=== PATIENT | female | born 1940 | race Caucasian/White ===

== ENCOUNTER 2018-03-20 15:41 | Observation (INO) | payer MEDICARE, OTHER, SELFPAY ==
[2018-03-20] VITALS (51 sets, daily range): BP systolic 91–121; BP diastolic 34–65; PULSE 67–87; RESP 16–41; TEMP 37–38.9; O2SAT 93–99
--- NOTE | 2018-03-20 15:57 | DI.REPORT_ITS ---
SYMPTOM/DIAGNOSIS: FEVER FRONTAL AND LATERAL CHEST: Comparison is made with 08/30/17. Heart size and pulmonary vasculature are within normal limits. The lungs are free of infiltrates, effusions or pneumothoraces. Mild degenerative changes are seen in the spine. IMPRESSION: No acute pulmonary process.
[2018-03-20] MEDS: Acetaminophen 325 MG TAB PO ×2 (16:14→19:13)
--- NOTE | 2018-03-20 16:18 | ED.GENADUL ---
Disposition Clinical Impression: Urinary tract infection, Anemia Disposition: [facility] INPATIENT Condition: Stable Medical Decision Making - Lab Data Results reviewed for labs ordered during visit: Yes - Radiology Data Radiology results: report reviewed, image reviewed - Medical Decision Making Patient presenting to the emergency department for chief complaint of fever and frequency of urination that began last night. Patient does state that she is also experiencing 1 of her typical migraine headaches but there is no change in these from her normal headaches that she gets very frequently. Physical exam shows no neurological deficits, normal cardiac exam, some mild wheezing, no abdominal pain but right CVA tenderness. Concern for urinary tract infection/pyelonephritis is high. Plan to draw labs, blood cultures, chest x-ray, and give mild hydration. For headache and fever pending results patient also given acetaminophen. Review of labs shows a significant drop in hemoglobin to 7.1 from an earlier result in August that showed hemoglobin closer to 11. Spoke with patient who denies any hematuria, rectal bleeding beyond intermittent hemorrhoids, dark tarry or bloody bowel movements. She does state that she has a history of Crohn's and has had a profound iron deficiency anemia in the past needed transfusion but has not had any episodes or issues for the past 2 years. Patient does state that she has noticed worsening shortness of breath and weakness over the past month and states that this is felt similar to previous episodes where her blood counts have dropped. Rectal examination was done at this time and showed negative Hemoccult. Urinalysis was also reviewed and shows signs of urinary tract infection so patient was started on Rocephin. Review of chest x-ray shows no acute findings. Patient reassessed and stated that she was feeling better after the acetaminophen. Plan to admit patient to transfuse blood and to continue to monitor spit patient's situation for any significant change. Called and spoke with Dr. Hubbard whom accepted the patient for observation stay and bridge orders were placed for patient to start transfusion of 2 units along with transfer for inpatient bed. After discussion of diagnosis and plan of care with patient patient agreed and stated no further needs, questions, or concerns at this time. History of Present Illness - General Chief complaint: Fever Stated complaint: CHILLS,SICK Time Seen by Provider: 03/20/18 15:49 Source: patient, family, RN notes reviewed, old records reviewed Mode of arrival: wheelchair Limitations: no limitations - History of Present Illness Initial comments: Patient reports yesterday she began feeling ill. In the evening she noticed that she began having fever then persistent chills to the point that she could not get warmed up with multiple blankets. She also states that she noticed that she had been urinating more yesterday evening but denies any burning of urination. Today she has felt feverish all day and so [id number] is bringing her to the emergency department. Patient does state some generalized weakness that she has noticed over the past month but denies any vomiting, diarrhea, cough, chest pain. She does state chronic nasal congestion but no change in her symptoms. She also has recurrent migraine headaches which she is currently having a headache but denies any change of her normal headache pattern. Onset/Timin -: days(s) Location: head Severity scale (1-10): 6 Quality: aching Consistency: constant Improves with: none Worsens with: none Associated Symptoms: denies other symptoms Treatments Prior to Arrival: none - Related Data Hyoscyamine Sulfate 1 - 2 tab PO TID PRN 06/30/17 Albuterol/Ipratropium [Duoneb Updraft] 3 ml UPD Q6H PRN #50 vial 10/01/17 Budesonide/Formoterol Fumarate [Symbicort 80/4.5 Mcg Inhaler] 2 puff IH BID #1 inh 10/01/17 Cyanocobalamin (Vitamin B-12) [Cyanocobalamin Injection] 1,000 mcg IM monthly #3 vial 10/01/17 Escitalopram [Lexapro] 10 mg PO DAILY #90 tab 10/01/17 Levothyroxine [Levothroid] 50 mcg PO DAILY #90 tab 10/01/17 Pantoprazole Sodium 40 mg PO BID #180 tab 10/01/17 Propranolol HCl 20 mg PO BID #180 tab 10/01/17 Syringe W-Cannula,Disp, 3 ml [Syringe] 1 each MC monthly #3 syringe 10/01/17 Ventolin Hfa 2 puff IN PRN PRN 10/01/17 Acetaminophen [Tylenol Extra Strength] 500 mg PO PRN tab 12/12/17 Balsalazide Disodium 1,500 mg PO TID cap 12/12/17 Allergies Allergy/AdvReac Type Severity Reaction Status Date / Time acetaminophen AdvReac Intermediate Headache Verified 03/20/18 16:00 ibuprofen AdvReac Headache Verified 03/20/18 15:57 Review of Systems Constitutional: see HPI, chills, fever, malaise, weakness Eyes: denies: eye discharge, vision change ENT: congestion. denies: throat pain Respiratory: shortness of breath (Mild). denies: cough Cardiovascular: denies: chest pain, palpitations, syncope Gastrointestinal: denies: abdominal pain, nausea, vomiting, diarrhea, constipation Genitourinary: denies: dysuria Musculoskeletal: denies: back pain Skin: denies: rash Hematological/Lymphatic: denies: easy bleeding, easy bruising Past Medical History - Past Medical History Medical history: asthma (Adult onset), hyperlipidemia, hypertension Iron deficiency anemia, Crohn's Psychiatric history: depression - Social History Smoking status: never smoker Alcohol use: none Drug use: none Living Situation: lives with family General Exam - General Limitations: no limitations General appearance: alert, in no apparent distress - Head Head exam: Present: atraumatic, normocephalic - Eye Eye exam: Present: normal apperance - Respiratory Respiratory exam: Present: wheezes (Mild expiratory throughout). Absent: respiratory distress, rales, rhonchi, stridor, decreased breath sounds - Cardiovascular Cardiovascular Exam: Present: regular rate, normal rhythm, normal heart sounds. Absent: tachycardia, systolic murmur, diastolic murmur, rubs, gallop, clicks - GI/Abdominal GI/Abdominal exam: Present: soft, normal bowel sounds. Absent: tenderness, guarding, rebound, rigid, organomegaly, mass, bruit, pulsatile mass - Rectal Rectal exam: Present: normal rectal tone. Absent: decreased rectal tone, black stool, bloody stool, fecal impaction, hemorrhoids - Back Exam Back exam: Present: CVA tenderness (R). Absent: CVA tenderness (L), rash noted - Neurological Exam Neurological exam: Present: alert, oriented X3. Absent: altered - Skin Skin exam: Present: warm, dry, normal color Course Vital Signs - 24 hr 03/20/18 03/20/18 15:50 16:14 Temperature 38.9 C H 38.9 C H Pulse 87 Respiratory 18 Rate Blood Pressure 107/54 Pulse Oximetry 93 L
[2018-03-20] MEDS: Normal Saline 500 ML IV (16:30)
[2018-03-20] MEDS: Normal Saline Flush 10 ML SYR IVP (16:30)
[2018-03-20 16:38] LABS: Lactate-non-spesis 1.1 mmol/L (0.6-1.4)
[2018-03-20 16:39] LABS: Abs Immature Grans 0.01 k/cumm (0.0-0.09); Absolute Basophil Count 0.02 k/cumm (0.0-0.2); Absolute Eosinophil Count 0.01 k/cumm (0.0-0.7); Absolute Lymphocyte Count 0.23 k/cumm (1.2-3.4); Absolute Monocyte Count 0.36 k/cumm (0.11-0.7); Absolute Neutrophil Count 6.17 k/cumm (1.2-6.7); Basophils % 0.3; Eosinophils % 0.1; HCT 24.1 % (36.0-46.0); HGB 7.1 g/dL (12.0-15.5); Immature Grans % 0.1; Lymphocytes % 3.4; Mean Corp. HGB Concentration 29.5 g/dL (32.0-36.0); Mean Corpuscular Hemoglobin 21.2 pg (27.0-33.0); Mean Corpuscular Volume 71.9 fL (80-95); Mean Platelet Volume 9.7 fL (8.0-11.0); Monocytes % 5.3; Neutrophils % 90.8; Platelet Count 110 x1000/uL (130-400); RBC 3.35 m/cumm (4.00-5.20); RBC Distribution Width 18.5 % (11.7-14.6)
[2018-03-20 16:53] LABS: Anisocytosis 2+; Diff Comment RBC Morph Reviewed; Hypochromasia 2+
[2018-03-20 16:54] LABS: Microcytosis 2+
[2018-03-20 16:58] LABS: Bilirubin Negative (Negative); Blood Negative (Negative); Clarity Sl Cloudy; Glucose Negative (Negative); Ketones Trace mg/dL (Negative); Leukocyte Esterase Moderate (Negative); Nitrite Positive (Negative); Specific Gravity 1.015 (1.005-1.025); Urobilinogen 0.2 EU/dL (Up TO 0.2); pH 5.5 (5-8)
[2018-03-20 16:59] LABS: ALT 13 U/L (12-78); AST 27 U/L (15-37); Albumin 3.5 g/dL (3.4-5.0); Alkaline Phosphatase 146 U/L (46-116); Anion Gap 8.9 mmol/L (3-11); BUN 17 mg/dL (7-18); Bilirubin, Total 1.4 mg/dL (0.2-1.0); CO2 23.1 mmol/L (21.0-32.0); CREATININE 0.89 mg/dL (0.55-1.02); Calcium 8.5 mg/dL (8.5-10.1); Chloride 101 mmol/L (98-107); Glucose 99 mg/dL (70-100); Magnesium 1.6 mg/dL (1.8-2.4); Potassium 3.5 mmol/L (3.5-5.1); Sodium 133 mmol/L (136-145); Total Protein 7.3 g/dL (6.4-8.2)
[2018-03-20 17:03] LABS: Troponin I < 0.02 ng/mL (0.00-0.06)
[2018-03-20 17:14] LABS: Bacteria Many HPF (Negative); WBC >50 HPF (0-5)
[2018-03-20 17:15] LABS: C & S Indicated? Yes
--- NOTE | 2018-03-20 17:47 | DI.VRAD_ITS ---
EXAM: XR Chest, 2 Views EXAM DATE/TIME: 03/20/2018 3:59 PM CLINICAL HISTORY: 77 years old, female; Signs and symptoms; Cough and fever TECHNIQUE: XR of the chest, 2 views. COMPARISON: CR - CHEST 2 VIEWS PA,LAT 08/30/2017 4:01 PM FINDINGS: Lungs: Unremarkable. No consolidation. Pleural space: Unremarkable. No pleural effusion. No pneumothorax. Heart/Mediastinum: Cardiac size is normal. Bones/joints: There is diffuse osteoporosis. Minimal marginal anterior osteophytic spurring is present throughout the thoracic vertebrae. IMPRESSION: 1. No acute pulmonary disease or acute thoracic findings are detected. 2. No significant interval change. Dictated and Authenticated by: Dirk Perez MD. Ordering:EDGAR KOCH MD
[2018-03-20] MEDS: Albuterol 2.5 MG/3 ML INH SOLN VIAL UPD (18:11)
--- NOTE | 2018-03-20 21:15 | PDOC.HP_ITS ---
Date of Service: 03/20/18 Time of Service: 21:15 Assessment/Plan - Assessment/Plan (1) UTI (urinary tract infection) Plan: Patient was given an dose of Rocephin 1 g IV tonight. I will put her on Keflex 500 mg p.o. 4 times daily presuming that her blood cultures come back negative. If her blood cultures are positive she will need to remain on parenteral antibiotics. (2) Microcytic anemia Assessment: Patient's had a history of iron deficiency anemia in the past and is required parenteral iron infusions because of intolerance to oral iron. According to Dr. Santaigo's office note from 12/12/2017 her last iron studies showed she is not currently deficient. However given her worsening anemia and microcytic changes, she probably is now iron deficient. She regularly takes B12 injection monthly so I doubt there is a B 12 deficiency. Plan: patient will be transfused 2 units of PRBC tonight w/ recheck of her CBC in the a.m. She can then follow up w/ Dr. Rankin for repeat endoscopy (3) Exacerbation of Crohn's disease Assessment: She is not having overt GI bleeding tonight (rectal exam was negative for heme according to Francois Lara CNP; however, I suspect that she has had intermittent GI bleeding although she denies any overt melena or hematochezia. The fact that her dyspnea/fatigue have been going on for over one month suggests that this has been a gradual process. She needs to see Dr. Rankin for further evaluation and adjustment of her Crohn's medicines. Apparently her insurance would not cover her Lialda. Plan: begin Budesonide 9 mg daily and arrange follow up w/ Dr. Rankin upon discharge ( non-formulary here at [facility] so will have to be prescribed upon discharge) History of Present Illness - History of Present Illness Chief Complaint: fever and chills History of Present Illness: 77-year-old female with history of Crohn's disease presents emergency department with 1 month history of increasing fatigue and a 1 day history of fever chills associated with rigors. She has chronic urinary urgency and nocturia couple times per night along with urge incontinence. She denies any dysuria or hematuria. Upon evaluation in the emergency room she was found to have a urinalysis suspicious for UTI and as part of her workup her CBC discovered that her chronic anemia had worsened. Her CBC this evening showed a hemoglobin of 7.1 g hematocrit 24% with microcytic indices. She also has thrombocytopenia with a platelet count 110,000. Her total white cell count is normal at 1600. She was hospitalized here with influenza A in August of this year and after leaving the hospital her hemoglobin had dropped from 12.7 g to 10.3 g and then was rechecked a week later and found to be 11.7 g. She followed up with Dr. Santiago who consulted with the patient's coordinator of rehabilitation services Dr. Rankin who recommended following her blood count every 6 months. Patient denies any melena nor any hematochezia however ever since they switched her Crohn's medicine from Lialda to balsalazide she has had worsening symptoms of her Crohn's including abdominal bloating and intermittent constipation and diarrhea and crampy abdominal pain. She says she last saw Dr. Rankin probably in September of this year and she last saw Dr. Santiago in November of this year. She scheduled for follow-up with him in May. Patient is now admitted to the hospital on observation status for blood transfusions and treatment of her UTI. Workup in the emergency room included blood and urine cultures and treatment included 1 g of Rocephin intravenously and she has been ordered 2 units of packed red cells to be transfused tonight. - Past Medical History Cardiac: HTN, Hyperlipidemia Pulmonary: Asthma, Bronchitis (06/30/2017 treated w/ 7 d course of doxycycline and prednisone) INVESTIGATIVE ANALYST: Migraine Gastrointestinal: Inflam bowel disease (Crohns disease; seen by Dr. 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) Infectious Disease: Other (influenza A 09/12/2017) Endocrine: Hypothyroidism Grav: 4 Para: 3 (one miscarriage at 3 months) - Past Surgical History Past Surgical History: Hysterectomy (s/p NOLVIA/BSO), Hernia Repair, Other (back surgeries x 4), Other (Yaa's fundiplication) - Past Family History Family History: Cancer (brothers w/ glioblastoma and lymphoma), CAD (mother w/ [place] and CHF), Other (son w/ Crohn's disease; father w/ Hinojosa aneurysm) - Past Social History Smoke: No 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; formerly lived in [facility] [facility].[place] (worked for [employer]) Alcohol: None Drugs: None Lives: With Family (lives w/ one grown son; last year after 59 yrs of marriage) Domestic Violence: Negative Review of Systems - Review of Systems Constitutional: Fever, Chills (associated w/ rigors, began 1 or 2 am and continued this afternoon), Malaise (increased feeling of being tired over the past few weeks) Eyes: Vision Change (secondary to macular degeneration) ENT: denies: Ear Pain, Ear Discharge, Nose Pain, Nose Discharge, Nose Congestion , Mouth Pain, Mouth Swelling, Throat Pain, Throat Swelling Respiratory: Cough (daily dry cough for years), Dry. denies: Shortness of Breath, Hemoptysis, SOB with Excertion, Pleuritic Pain, Sputum, Wheezing Cardiovascular: denies: Chest Pain, Palpitations, Orthopnea, Paroxysmal Noc. Dyspnea, Edema, Light Headedness Gastrointestinal: Nausea, Abdominal Pain (abdominal cramping associated w/ her diarrhea), Diarrhea, Constipation (often will vary between diarrhea and constipation from her Crohn's disease). denies: Vomiting, Melena, Hematochezia Genitourinary: Frequency, Incontinence (urgency and leaking; nocturia twice per night). denies: Dysuria, Hematuria Musculoskeletal: Neck Pain, Back Pain (chronic neck and back pain from OA) Skin: denies: Rash, Lesions, Serge, Bruising Neurological: denies: Weakness, Numbness, Incoordination, Change in Speech, Confusion, Seizures - Medications/Allergies Allergies/Adverse Reactions: Allergies Allergy/AdvReac Type Severity Reaction Status Date / Time acetaminophen AdvReac Intermediate Headache Verified 03/20/18 16:00 ibuprofen AdvReac Headache Verified 03/20/18 15:57 Medications: Current Medications Acetaminophen (Tylenol) 325 - 650 mg PO Q4H PRN PRN Al Hydrox/Mg Hydrox/Simethicone (Mylanta Liquid) 30 ml PO Q2H PRN PRN Albuterol/Ipratropium (Duoneb Updraft) 3 ml UPD Q6H PRN Budesonide/Formoterol Fumarate (Symbicort 80/4.5 Mcg Inhaler) 0 puff IH BID [place] Cephalexin (Keflex) 500 mg PO QID [facility] Dimethicone/Zinc Oxide (Jacki Protect Cream) 0 gm TP PRN PRN Docusate Sodium (Colace) 100 mg PO TID PRN PRN Escitalopram Oxalate (Lexapro) 10 mg PO DAILY [facility] Sodium Chloride (Saline 1000ml Bag) 1,000 mls @ 30 mls/hr IV INFUSION [facility] IV Miscellaneous Supplies () 1 each IV DIRECTED [place] IV Miscellaneous Supplies () 1 each IV DIRECTED [place] Levothyroxine Sodium (Levothroid) 50 mcg PO DAILY AM [facility] Magnesium Gluconate () 500 mg PO BID [facility] Magnesium Hydroxide (Milk Of Magnesia) 30 ml PO DAILY PRN PRN Non-Formulary Medication (Balsalazide Disodium [Balsalazide Disodium]) 1,500 mg PO TID [facility] Pantoprazole Sodium (Protonix) 40 mg PO DAILY [facility] Polyethylene Glycol (Miralax) 17 gm PO DAILY PRN PRN PRN Reason: Constipation Propranolol HCl (Inderal) 20 mg PO BID [place] Sodium Chloride (Saline Flush 10 Ml Syringe) 0 ml IVP PRN PRN Last Admin: 03/20/18 16:30 Dose: 10 ml Sodium Chloride (Saline Flush 10 Ml Syringe) 0 ml IVP PRN PRN Active Medications Generic Name Dose Route Start Last Admin Trade Name Freq PRN Reason Stop Dose Admin Acetaminophen 325 - 650 mg 03/20/18 20:30 Tylenol PO Q4H PRN PRN Al Hydrox/Mg Hydrox/Simethicone 30 ml 03/20/18 19:32 Mylanta Liquid PO Q2H PRN PRN Albuterol/Ipratropium 3 ml 03/20/18 19:35 Duoneb Updraft UPD Q6H PRN Budesonide/Formoterol Fumarate 0 puff 03/21/18 08:30 Symbicort 80/4.5 Mcg Inhaler IH BID [facility] Cephalexin 500 mg 03/20/18 20:00 Keflex PO QID [facility] Dimethicone/Zinc Oxide 0 gm 03/20/18 19:32 Jacki Protect Cream TP PRN PRN Docusate Sodium 100 mg 03/20/18 19:32 Colace PO TID PRN PRN Escitalopram Oxalate 10 mg 03/21/18 08:30 Lexapro PO DAILY [facility] Sodium Chloride 1,000 mls @ 30 mls/hr 03/20/18 19:45 Saline 1000ml Bag IV INFUSION [facility] IV Miscellaneous Supplies 1 each 03/20/18 16:00 IV DIRECTED [facility] IV Miscellaneous Supplies 1 each 03/20/18 19:15 IV DIRECTED [facility] Levothyroxine Sodium 50 mcg 03/21/18 05:35 Levothroid PO DAILY AM [facility] Magnesium Gluconate 500 mg 03/20/18 20:00 PO BID [facility] Magnesium Hydroxide 30 ml 03/20/18 19:32 Milk Of Magnesia PO DAILY PRN PRN Non-Formulary Medication 1,500 mg 03/20/18 20:00 Balsalazide Disodium [Balsalazide Disodium] PO TID [facility] Pantoprazole Sodium 40 mg 03/21/18 08:30 Protonix PO DAILY [facility] Polyethylene Glycol 17 gm 03/20/18 19:32 Miralax PO DAILY PRN PRN Constipation Propranolol HCl 20 mg 03/20/18 20:00 Inderal PO BID [facility] Sodium Chloride 0 ml 03/20/18 15:57 03/20/18 16:30 Saline Flush 10 Ml Syringe IVP 10 ml PRN PRN Administration Sodium Chloride 0 ml 03/20/18 19:03 Saline Flush 10 Ml Syringe IVP PRN PRN Hyoscyamine Sulfate 1 - 2 tab PO TID PRN 06/30/17 Albuterol/Ipratropium [Duoneb Updraft] 3 ml UPD Q6H PRN #50 vial 10/01/17 Budesonide/Formoterol Fumarate [Symbicort 80/4.5 Mcg Inhaler] 2 puff IH BID #1 inh 10/01/17 Cyanocobalamin (Vitamin B-12) [Cyanocobalamin Injection] 1,000 mcg IM monthly # 3 vial 10/01/17 Escitalopram [Lexapro] 10 mg PO DAILY #90 tab 10/01/17 Levothyroxine [Levothroid] 50 mcg PO DAILY #90 tab 10/01/17 Pantoprazole Sodium 40 mg PO BID #180 tab 10/01/17 Propranolol HCl 20 mg PO BID #180 tab 10/01/17 Syringe W-Cannula,Disp, 3 ml [Syringe] 1 each monthly #3 syringe 10/01/17 Ventolin Hfa 2 puff IN PRN PRN 10/01/17 Acetaminophen [Tylenol Extra Strength] 500 mg PO PRN tab 12/12/17 Balsalazide Disodium 1,500 mg PO TID cap 12/12/17 Objective - Exam Vitals and I&O: Vital Signs Temp 38.6 C H 03/20/18 20:13 Pulse 74 03/20/18 20:05 Resp 16 03/20/18 20:05 BP 106/46 03/20/18 20:05 Pulse Ox 99 03/20/18 20:05 Intake & Output 03/19/18 03/20/18 03/20/18 23:59 11:59 23:59 Intake Total 500 Balance 500 Weight 68.039 kg Intake: IV 500 General: Alert, Oriented x3, Cooperative, No acute distress HEENT: Atraumatic, PERRLA, EOMI, Other (Pale conjunctiva and pale mucosal membranes) Neck: Supple, Other (2+ carotid pulses with a soft bruit over the right carotid base). denies: JVD, Thyromegaly, LAD Lungs: Normal air movement, Other (Find end expiratory wheezes without rhonchi or rales) Cardiovascular: Regular rate, Normal S1, Normal S2, Murmurs (Grade 3/6 systolic murmur along the left upper sternal border without thrill or heave). denies: Gallops, Rubs Abdomen: Normal bowel sounds, Soft. denies: Tenderness, Hepatospenomegaly, Masses Extremities: Normal pulses, Other (Left foot drop). denies: Cyanosis, Edema, Tenderness/swelling Skin: denies: Rashes Neurological: Normal speech, Strength at 5/5 X4 ext (Except she has no dorsiflexion of the left foot), Normal tone, Sensation intact Psych/Mental Status: Mental status NL, Mood NL Results - Laboratory Data Result Diagrams: 03/20/18 16:30 03/20/18 16:30 Laboratory Results: Laboratory Tests 03/20/18 03/20/18 03/20/18 16:30 16:30 16:30 WBC 6.80 RBC 3.35 L Hgb 7.1 L Hct 24.1 L MCV 71.9 L MCH 21.2 L MCHC 29.5 L RDW 18.5 H Plt Count 110 L MPV 9.7 Immature Gran % 0.1 Neutrophils % 90.8 Lymphocytes % 3.4 Monocytes % 5.3 Eosinophils % 0.1 Basophils % 0.3 Absolute Neutrophils 6.17 Absolute Lymphocytes 0.23 L Absolute Monocytes 0.36 Absolute Eosinophils 0.01 Absolute Basophils 0.02 Differential Comment Rbc morph reviewed RBC Morphology See below Hypochromasia 2+ Anisocytosis 2+ Microcytosis 2+ Sodium 133 L Potassium 3.5 Chloride 101 Carbon Dioxide 23.1 Anion Gap 8.9 BUN 17 Creatinine 0.89 Estimated GFR/1.73 m2 >= 60.00 Glucose 99 Lactate 1.1 Calcium 8.5 Magnesium 1.6 L Total Bilirubin 1.4 H AST 27 ALT 13 Alkaline Phosphatase 146 H Troponin I < 0.02 Total Protein 7.3 Albumin 3.5 Urine Color Urine Clarity Urine pH Ur Specific [place] Urine Protein Urine Ketones Urine Blood Urine Nitrite Urine Bilirubin Urine Urobilinogen Ur Leukocyte Esterase Urine RBC Urine WBC Ur Epithelial Cells Urine Crystals Urine Bacteria Urine Mucus Ur Culture Indicated? Urine Glucose Patient ABO/Rh Antibody Screen Crossmatch 03/20/18 03/20/18 16:50 17:12 WBC RBC Hgb Hct MCV MCH MCHC RDW Plt Count MPV Immature Gran % Neutrophils % Lymphocytes % Monocytes % Eosinophils % Basophils % Absolute Neutrophils Absolute Lymphocytes Absolute Monocytes Absolute Eosinophils Absolute Basophils Differential Comment RBC Morphology Hypochromasia Anisocytosis Microcytosis Sodium Potassium Chloride Carbon Dioxide Anion Gap BUN Creatinine Estimated GFR/1.73 m2 Glucose Lactate Calcium Magnesium Total Bilirubin AST ALT Alkaline Phosphatase Troponin I Total Protein Albumin Urine Color Yellow Urine Clarity Sl cloudy Urine pH 5.5 Ur Specific [place] 1.015 Urine Protein 100 H Urine Ketones Trace H Urine Blood Negative Urine Nitrite Positive H Urine Bilirubin Negative Urine Urobilinogen 0.2 Ur Leukocyte Esterase Moderate H Urine RBC Not Applicable Urine WBC >50 Ur Epithelial Cells Not Applicable Urine Crystals Not Applicable Urine Bacteria Many Urine Mucus Not Applicable Ur Culture Indicated? Yes Urine Glucose Negative Patient ABO/Rh A Positive Antibody Screen Negative Crossmatch See Detail
[2018-03-20] MEDS: Magnesium Gluconate 500 MG TAB PO (22:29)
[2018-03-20 22:37] LABS: C-Reactive Protein 6.72 mg/dL (0.0-0.3)
[2018-03-20] MEDS: Cephalexin 500 MG CAP PO (23:16)
[2018-03-20 23:44] LABS: Iron 22 ug/dL (50-175)
[2018-03-20 23:58] LABS: Ferritin 19 ng/mL (8-388)
[2018-03-21] VITALS (9 sets, daily range): BP systolic 102–150; BP diastolic 52–66; PULSE 53–71; RESP 18–20; TEMP 36.2–37.3; O2SAT 95–98
--- NOTE | 2018-03-21 06:26 | PDOC.CMIN ---
Date of Service: 03/21/18 Time of Service: 09:37 Care Management Initial Assess REASON FOR HOSPITALIZATION:: UTI, Anemia PAST MEDICAL HISTORY/PAST SURGICAL HISTORY:: HTN, Hyperlipidemia, Asthma, Miraine, Crohns disease, B12 deficiency, Iron deficiency anemia, Depression, Foot drop s/p prior back surgeries x4 for DJD LS spine, Hypothyroidism, Hysterectomy, Hernia repair, Yaa's fundiplication PREVIOUS FUNCTIONAL STATUS/SOCIAL/FAMILY SUPPORTS:: Cindy resides in [place], her son Gus resides with her. Cindy states that she has three sons all whom reside in [place] and are supportive. Cindy states that she is from [place] originally, moved to [place] with her and when he passed moved to [place] to be closer to her family. Cindy is independent at baseline and manages ADL's. She states that she does not drive and depends on her children for assistance with this. CURRENT FUNCTIONAL STATUS:: Currently Cindy is lying in bed watching TV when this inspector automatic typewriter visits. She is pleasant and open to conversation. ADVANCE DIRECTIVES:: None on file Has patient been provided with information about the portal?: Yes Did the patient sign up for the portal?: No CODE STATUS:: DNR/DNI INSURANCE COVERAGE / FINANCIAL ISSUES:: Medicare, CURRENT HOME/COMMUNITY SERVICES/EQUIPMENT:: Currently cindy has no services in the community. she does have a 4WW and a cane. She states that she uses the cane more frequently. PRIMARY CARE PHYSICIAN:: Dr. Santiago POTENTIAL DISCHARGE NEEDS:: F/U appointment with PCP and GI PATIENT/FAMILY EDUCATION NEEDS:: Review DC instructions, any limitations, and ongoing DC planning discussion. Review Ask Me Three ANTICIPATED BARRIERS TO DISCHARGE:: None identified at this time. TRANSPORTATION:: Via private vehicle with qing Weber PLAN:: Cindy will return home with no anticipated services once medically cleared. She will F/U with PCP, GI, and plan of care as prescribed. Twila Weber will transport when ready.
--- NOTE | 2018-03-21 06:29 | INITIAL_ITS ---
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 Cindy states that she has three sons all whom reside in [facility] and are supportive. Cindy states that she is from [facility] originally, moved to [place] with her and when he passed moved to [place] to be closer to her family. Cindy is independent at baseline and manages ADL's. She states that she does not drive and depends on her children for assistance with this. CURRENT FUNCTIONAL STATUS:: Currently Cindy is lying in bed watching TV when this medical writer visits. She is pleasant and open to conversation. ADVANCE DIRECTIVES:: None on file Has patient been provided with information about the portal?: Yes Did the patient sign up for the portal?: No CODE STATUS:: DNR/DNI INSURANCE COVERAGE / FINANCIAL ISSUES:: Medicare, CURRENT HOME/COMMUNITY SERVICES/EQUIPMENT:: Currently cindy has no services in the community. she does have a 4WW and a cane. She states that she uses the cane more frequently. PRIMARY CARE PHYSICIAN:: Dr. Santiago POTENTIAL DISCHARGE NEEDS:: F/U appointment with PCP and GI PATIENT/FAMILY EDUCATION NEEDS:: Review DC instructions, any limitations, and ongoing DC planning discussion. Review Ask Me Three ANTICIPATED BARRIERS TO DISCHARGE:: None identified at this time. TRANSPORTATION:: Via private vehicle with qing Weber PLAN:: Cindy will return home with no anticipated services once medically cleared. She will F/U with PCP, GI, and plan of care as prescribed. Twila Weber will transport when ready.
[2018-03-21] MEDS: Levothyroxine 25 MCG TAB 50 MCG PO (06:41)
[2018-03-21] MEDS: Normal Saline 1,000 ML 30 ML IV (06:41)
[2018-03-21] MEDS: Normal Saline Flush 10 ML SYR IVP (06:42)
[2018-03-21] MEDS: Furosemide 20 MG/2 ML VIAL IVP (06:42)
[2018-03-21 06:59] LABS: HCT 27.4 % (36.0-46.0); Mean Corp. HGB Concentration 29.2 g/dL (32.0-36.0); Mean Corpuscular Hemoglobin 21.8 pg (27.0-33.0); Mean Corpuscular Volume 74.7 fL (80-95); Mean Platelet Volume 10.8 fL (8.0-11.0); RBC 3.67 m/cumm (4.00-5.20); RBC Distribution Width 19.3 % (11.7-14.6); White Blood Cell Count 5.08 k/cumm (4.4-10.8)
[2018-03-21 07:19] LABS: Magnesium 1.8 mg/dL (1.8-2.4); TSH (W/Ref FT4) 0.87 uIU/mL (0.358-3.74)
[2018-03-21 07:30] LABS: Platelet Count 92 x1000/uL (130-400)
[2018-03-21] MEDS: Magnesium Gluconate 500 MG TAB PO (08:32)
[2018-03-21] MEDS: Pantoprazole 40 MG TABCR PO (08:32)
[2018-03-21] MEDS: Propranolol 20 MG TAB PO (08:32)
[2018-03-21] MEDS: Escitalopram 10 MG TAB PO (08:32)
[2018-03-21] MEDS: Cephalexin 500 MG CAP PO ×2 (08:32→12:09)
[2018-03-21] MEDS: Budesonide/Formoterol 80/4.5 6.9 GM 60 PUFF INH IH (09:10)
--- NOTE | 2018-03-21 10:33 | PHARADMIT ---
Admission Pharmacy Clinical Review Code Status DNR/DNI Current Weight Wgt- 68 kg Renally Cleared and Narrow Therapeutic Index Meds CrCl~ 39.3 mL/min MedS-OK QTc Value / Action Taken none current BP Control, Fever BP- 150/66 Tmax- 37.3C Electrolytes reviewed Na- 133 K+3.5 Mag-1.8 DVT Prophylaxis No low platelets Opiate Usage / Scheduled Bowel Regimen Ordered No Yes Plt/SCr for Heparin / Enoxaparin Plts-92 SCr-0.89 INR for Warfarin na H/H stable, WBC/Bands H&H-80/27.4 WBC- 5.08 Antibiotic appropriateness Keflex, Cultures and Sensitivities Blood/Urine- Pending Surgical ABX d/c within 24 hr na DM control / Insulin Dosing BG- 99 Heart Failure (Check EF%) (GERSON's, B-Block, Diuretics) Lasix, Inderal IV to PO Switch No Home Meds Reviewed Yes Home Meds Not Ordered B12, Hyoscyamine, Comments
[2018-03-21] MEDS: Acetaminophen 325 MG TAB PO (12:09)
--- NOTE | 2018-03-21 14:48 | CHAPLAIN ---
Maegan was in bed, her son was visiting, when I stopped in. They told me about moving from [place] to [place], and then to [place] after Maegan's a few years ago. Maegan's two other sons live in [facility]. They sisters and moved here. Maegan seeded to be comfortable being here and expects to go home later today.
--- NOTE | 2018-03-21 14:54 | PDOC.DISCH_ITS ---
Discharge - Discharge Orders Referrals: Hood Santiago DO [Primary Care Provider] - 04/03/18 2:00 pm Other Amb Orders: Complete Blood Count No Diff [LAB] Location: Determined By Patient - Discharge Plan Disposition: HOME Condition: Stable Diet:: As Tolerated Equipment/Supplies:: No Equipment Needed Activity:: Activity as Tolerated - Instructions Micromedex Instructions: Anemia (DC), Crohn Disease (DC), Urinary Tract Infection in Children (DC) Additional Instructions: Your blood counts are still low, though they have improved after the transfusion. Get the blood drawn tomorrow to make sure they aren't going down again. [facility] [place] calling you this coming week to make a plan for repeat endoscopy and colonoscopy to look for sources of bleeding the status of the Crohns Disease. Make sure you get your antibiotic for the UTI and continue that.
--- NOTE | 2018-03-21 15:31 | PLE_ITS ---
DATE: MARCH 21, 2018 ACUTE PROBLEMS: 1. Anemia, microcytic, possible GI blood loss subacutely 2. Crohn's disease 3. Urinary tract infection, E-coli CHRONIC PROBLEMS: 1. Hypertension 2. Asthma 3. B-12 deficiency 4. History of depression 5. Hypothyroidism
--- NOTE | 2018-03-21 15:31 | DSE_ITS ---
ADMITTED: MARCH 20, 2018 DISCHARGED: MARCH 21, 2018 PRIMARY CARE PROVIDER: Hood Santiago M.D. HISTORY OF PRESENT ILLNESS: This is a 77 year-old woman with history of Crohn's disease who presented with a month of increasing fatigue and some fevers the day of admission. On initial assessment she was found to have a urinalysis consistent with a urinary tract infection and a hemoglobin of 7.1 with microcytic indices. She was admitted for anemia and urinary tract infection. She was treated with Ceftriaxone and 2 units of packed red blood cells along with fluids. She had not had any rectal bleeding or melena. She was heme negative on rectal examination in the Emergency Room. HOSPITAL COURSE: The patient was stable overnight and felt well by the next day. She had no recurrence of fevers. She was put on oral Cephalexin but she was given one additional dose of IV Ceftriaxone prior to discharge given that the blood cultures were not back yet or sensitivities. She did not have any rectal bleeding or melena. On admission she described some increasing abdominal cramping since her visit with the Construction Equipment Overhauler in the spring when she was changed from her form of mesalamine from Pentasa to Lialda due to cost concerns. Her C-reactive protein was elevated at 6.72. The case was reviewed with the covering supervisor scenic arts at [facility] who agreed with some oral Budesonide. They plan to arrange repeat colonoscopy in a week following discharge given the worsening anemia. SIGNIFICANT TEST RESULTS: Hemoglobin on presentation 7.1, on day of discharge 8.0. Chest x-ray on admission showing no acute pulmonary process. Magnesium of 1.6 on admission, 1.8 on discharge. C-reactive protein 6.72. TSH 0.87. Heme occult negative stool. DISCHARGE DIAGNOSES: 1. Anemia, microcytic, possible GI blood loss subacutely 2. Crohn's disease 3. Urinary tract infection, E-coli OTHER DIAGNOSES: 1. Hypertension 2. Asthma 3. B-12 deficiency 4. History of depression 5. Hypothyroidism DISCHARGE MEDICATIONS: 1. Cephalexin 500 mg. p.o. t.i.d. for 5 more days 2. Citalopram 10 mg. p.o. daily 3. Hyoscyamine 0.125 mg. tab sublingual 1 to 2 tabs p.o. t.i.d. 4. Levothyroxine 50 micrograms p.o. daily 5. Pantoprazole 40 mg. p.o. b.i.d. 6. Propranolol 20 mg. p.o. b.i.d. 7. Acetaminophen 500 mg. p.o. q. 4 hours as needed for pain 8. Balsalazide Disodium [address] t.i.d. per Dr. Scott. 9. Budesonide Formoterol 2 puffs inhaled b.i.d. 10. DuoNeb 3 ml. updraft every 6 hours as needed 11. Ventolin Albuterol inhaler 2 puffs inhaled q. 4 hours p.r.n. shortness of breath 12. Budesonide ER 9 mg. p.o. daily DISCHARGE PLANS: The patient will follow-up with CBC tomorrow to make sure the blood counts are not dropping. Although the hemoglobin only went up 1 gram, the patient did get hydrated and she felt quite well and was not symptomatic with her anemia on the day of discharge she had no signs of further bleeding and a negative heme occult stool. She understands it is possible that she will need additional transfusion if she continues to drop. [facility] will be calling her next week to set up an expedited esophagogastroduodenoscopy and colonoscopy. They agreed with starting Budesonide for two weeks orally as an additional measure to control any active Crohn's disease. She should continue on Cephalexin for additional 5 days to treat her urinary tract infection. CONDITION ON DISCHARGE: Stable. 45 minutes spent preparing this discharge.
--- NOTE | 2018-03-25 16:21 | W.ED.FU ---
Patient discharged from inpatient outpatient status bed with diagnosis of anemia and uti. Started Keflex for UTI. C&S reviewed and organism sensitive to kelfex.
== END 2018-03-21 16:15 | disposition home or self-care (01) ==
LOC: ER 03-26 12:38 → MS 03-26 12:39
PROVIDERS: Nurse Practitioner Family; Admitting Provider Internal Medicine; Emergency Provider Physician Assistant; PCP Family Medicine; Visit Provider Family Medicine
DX: N39.0 Urinary tract infection, site not specified (principal); D50.9 Iron deficiency anemia, unspecified; B96.20 Unspecified Escherichia coli [E. coli] as the cause of diseases classified elsewhere; K50.90 Crohn's disease, unspecified, without complications; I10 Essential (primary) hypertension; E78.5 Hyperlipidemia, unspecified; E53.8 Deficiency of other specified B group vitamins; Z16.11 Resistance to penicillins; Z16.29 Resistance to other single specified antibiotic
CPT/HCPCS: 36415; 36430; 80053; 85027; 86850; 86900; 86901; 86920; 87040; 87077; 94640; 96361; 96365; 99285; 71046; 81003; 81015; 82728; 83540; 83605; 83735; 84443; 84484; 85025; 86140; 87086; 87186; 99219; G0378; J0696; J1941; J7613; P9016

== ENCOUNTER 2018-03-22 19:31 | Outpatient (CLI) | payer MEDICARE, OTHER, SELFPAY ==
[2018-03-22 20:58] LABS: HCT 31.1 % (36.0-46.0); HGB 9.3 g/dL (12.0-15.5); Mean Corp. HGB Concentration 29.9 g/dL (32.0-36.0); Mean Corpuscular Hemoglobin 22.2 pg (27.0-33.0); Mean Corpuscular Volume 74.4 fL (80-95); RBC 4.18 m/cumm (4.00-5.20); RBC Distribution Width 20.1 % (11.7-14.6)
[2018-03-22 23:13] LABS: Platelet Count 114 x1000/uL (130-400); White Blood Cell Count 4.06 k/cumm (4.4-10.8)
== END 2018-03-22 19:32 ==
LOC: NCHCN 03-23 11:07 → NCHCO 03-23 11:07
PROVIDERS: PCP Family Medicine; Visit Provider Family Medicine
DX: D64.9 Anemia, unspecified (principal); K50.90 Crohn's disease, unspecified, without complications; I10 Essential (primary) hypertension; E03.9 Hypothyroidism, unspecified
CPT/HCPCS: 85027

== ENCOUNTER 2018-05-01 02:00 | Outpatient (RCR) | payer MEDICARE, OTHER, SELFPAY ==
[2018-05-01] MEDS: Normal Saline Flush 10 ML SYR IVP (13:48)
== END 2018-05-21 23:59 | disposition home or self-care (01) ==
LOC: INF 02:00
PROVIDERS: PCP Family Medicine; Visit Provider Family Medicine
DX: D50.9 Iron deficiency anemia, unspecified (principal)
CPT/HCPCS: 96365; 96366; J1756

== ENCOUNTER 2018-05-29 00:49 | Outpatient (RCR) | payer MEDICARE, OTHER, SELFPAY ==
[2018-05-29] MEDS: Normal Saline Flush 10 ML SYR IVP (13:30)
[2018-05-29 13:54] LABS: Abs Immature Grans 0.04 k/cumm (0.0-0.09); Absolute Basophil Count 0.01 k/cumm (0.0-0.2); Absolute Lymphocyte Count 0.32 k/cumm (1.2-3.4); Absolute Monocyte Count 0.05 k/cumm (0.11-0.7); Absolute Neutrophil Count 6.57 k/cumm (1.2-6.7); Basophils % 0.1; HCT 35.1 % (36.0-46.0); HGB 10.8 g/dL (12.0-15.5); Immature Grans % 0.6; Lymphocytes % 4.6; Mean Corp. HGB Concentration 30.8 g/dL (32.0-36.0); Mean Corpuscular Hemoglobin 26.1 pg (27.0-33.0); Mean Corpuscular Volume 84.8 fL (80-95); Mean Platelet Volume 10.1 fL (8.0-11.0); Monocytes % 0.7; Platelet Count 251 x1000/uL (130-400); RBC 4.14 m/cumm (4.00-5.20); RBC Distribution Width 25.5 % (11.7-14.6); White Blood Cell Count 6.99 k/cumm (4.4-10.8)
[2018-05-29 14:05] LABS: Iron 62 ug/dL (50-175); Total Iron Binding Capacity 299 ug/dL (250-450); Transferrin Sat 21 % (15-50)
[2018-05-29 14:11] LABS: Cholesterol 222 mg/dL (50-200); HDL Cholesterol 74 mg/dL (40-60); LDL CHOLESTEROL 132 mg/dL (<100); TSH (W/Ref FT4) 0.99 uIU/mL (0.358-3.74); Triglyceride 115 mg/dL (30-150)
[2018-05-29 14:16] LABS: Diff Comment RBC Morph Reviewed
[2018-05-29 14:17] LABS: Anisocytosis 3+
== END 2018-06-20 23:59 | disposition home or self-care (01) ==
LOC: INF 00:49
PROVIDERS: PCP Family Medicine; Visit Provider Family Medicine
DX: D50.9 Iron deficiency anemia, unspecified (principal)
CPT/HCPCS: 36415; 80061; 83721; 96365; 83540; 83550; 84443; 85025; J1756

== ENCOUNTER 2018-06-26 02:12 | Outpatient (RCR) | payer MEDICARE, OTHER, SELFPAY ==
[2018-06-26] MEDS: Normal Saline Flush 10 ML SYR IVP (13:25)
== END 2018-07-21 23:59 | disposition home or self-care (01) ==
LOC: INF 02:12
PROVIDERS: PCP Family Medicine; Visit Provider Family Medicine
DX: D50.9 Iron deficiency anemia, unspecified (principal)
CPT/HCPCS: 96365; 96366; J1756

== ENCOUNTER → 2018-08-20 09:11 | Outpatient (BNVA) | payer MEDICARE, OTHER, SELFPAY | PROVIDERS: PCP Family Medicine; Visit Provider Nurse Practitioner Adult Health | DX: G43.009 Migraine without aura, not intractable, without status migrainosus (principal) | CPT/HCPCS: 99214 ==

== ENCOUNTER 2018-08-21 01:30 | Outpatient (RCR) | payer MEDICARE, OTHER, SELFPAY ==
[2018-07-24] MEDS: Normal Saline Flush 10 ML SYR IVP (13:12)
[2018-07-24 13:34] LABS: Abs Immature Grans 0.01 k/cumm (0.0-0.09); Absolute Basophil Count 0.04 k/cumm (0.0-0.2); Absolute Eosinophil Count 0.06 k/cumm (0.0-0.7); Absolute Lymphocyte Count 0.59 k/cumm (1.2-3.4); Absolute Monocyte Count 0.33 k/cumm (0.11-0.7); Eosinophils % 1.5; HCT 34.6 % (36.0-46.0); HGB 11.1 g/dL (12.0-15.5); Immature Grans % 0.3; Lymphocytes % 14.8; Mean Corp. HGB Concentration 32.1 g/dL (32.0-36.0); Mean Corpuscular Hemoglobin 30.4 pg (27.0-33.0); Mean Corpuscular Volume 94.8 fL (80-95); Mean Platelet Volume 10.9 fL (8.0-11.0); Monocytes % 8.3; Neutrophils % 74.1; Platelet Count 133 x1000/uL (130-400); RBC 3.65 m/cumm (4.00-5.20)
[2018-07-24 13:39] LABS: Absolute Neutrophil Count 2.96 k/cumm (1.2-6.7)
[2018-07-24 14:15] LABS: Iron 74 ug/dL (50-175); Total Iron Binding Capacity 286 ug/dL (250-450); Transferrin Sat 26 % (15-50)
[2018-08-21] MEDS: Normal Saline Flush 10 ML SYR IVP (13:17)
== END 2018-08-21 23:59 | disposition home or self-care (01) ==
LOC: INF 01:30
PROVIDERS: PCP Family Medicine; Visit Provider Family Medicine
DX: E61.1 Iron deficiency (principal)
CPT/HCPCS: 36415; 96365; 99195; 83540; 83550; 85025; J1756

== ENCOUNTER 2018-08-22 00:13 | Outpatient (CLI) | payer MEDICARE, OTHER, SELFPAY ==
--- NOTE | 2018-08-22 08:41 | DI.MRI_ITS ---
SYMPTOM/DIAGNOSIS: WORSENING HEADACHES. NEW DAILY PERSISTENT HEADACHES, G44.52 BRAIN MRI: 08/22/18 MRI examination of the brain was performed according to the usual protocol. There is moderate to severe generalized cerebral atrophy and there are severe bilateral white matter signal changes consistent with microvascular ischemic change in periventricular white matter, and also to a lesser degree in the kim. There is a right lacunar infarct. No other focal signal abnormality is identified in the brain. Susceptibility weighted imaging shows no evidence of intracranial hemorrhage. Diffusion weighted imaging shows no evident acute or subacute infarction. The orbital and temporal bone structures appear intact. Pituitary is unremarkable. There is normal flow void in the [place] vasculature. CONCLUSION: Marked cerebral atrophy and severe microvascular ischemic changes. No focal lesion identified.
== END 2018-08-22 00:33 ==
PROVIDERS: PCP Family Medicine; Visit Provider Nurse Practitioner Adult Health
DX: G44.52 New daily persistent headache (NDPH) (principal); G31.1 Senile degeneration of brain, not elsewhere classified; R90.82 White matter disease, unspecified
CPT/HCPCS: 70551

== ENCOUNTER 2018-09-15 16:32 | Emergency (ER) | payer MEDICARE, OTHER, SELFPAY ==
--- NOTE | 2018-09-15 16:41 | DI.CT_ITS ---
SYMPTOM/DIAGNOSIS: COUGH, ABD PAIN, CHEST PAIN CHEST, ABDOMEN AND PELVIC CT: CT scan of the chest, abdomen and pelvis was performed following the uneventful administration of intravenous contrast material. No priors for comparison. ABDOMEN AND PELVIS: The liver is normal in size. No hepatic mass is seen. The portal, superior mesenteric and splenic veins are patent. The gallbladder appears negative. There is no biliary ductal dilatation. The pancreas and peripancreatic soft tissues are unremarkable. The spleen is enlarged measuring 13 cm. The adrenal glands are unremarkable. The kidneys show normal and symmetric enhancement. No suspicious solid renal mass or obstruction is identified. There are hypodense areas seen in the kidneys. They are too small for further characterization but likely reflect small cysts. There appears to be a hiatal hernia. The bowel shows no evidence of obstruction or inflammation. No findings to suggest an acute appendicitis are present. The abdominal aorta is of normal caliber. Mild atherosclerosis is present. No significant abdominal or pelvic adenopathy, ascites or pneumoperitoneum is present. The urinary bladder is intact. The patient appears to be status post hysterectomy. Post surgical changes are seen at the L 5-S 1 disc space. Moderate degenerative changes are seen in the lumbar spine. IMPRESSION: 1. No evidence of an acute abdomen. 2. Mild splenomegaly. 3. Stable post surgical findings seen in the pelvis and lumbar spine. CHEST: There is a 5 mm. hypodense nodule seen in the right lobe of the thyroid gland. There is atherosclerosis of the thoracic aorta but no aneurysmal dilatation is seen. Heart size is within normal limits. No significant pericardial effusion is seen. Coronary artery calcifications are present. There are enlarged hilar nodes, particularly on the right, the largest measures 1.7 cm. by 1.5 cm. No pleural effusion or pneumothorax is identified. There is scarring or atelectasis seen in the lung bases, right greater than left. There also appears to be a small opacity which may represent fibrosis or atelectasis in the right upper lobe. Note is made of a hiatal hernia. Degenerative changes are seen in the spine. Surgical clips are seen in the gastroesophageal junction. IMPRESSION: 1. Small thyroid nodule measuring 5 mm. 2. Hilar adenopathy as described above. 3. Areas of scarring or atelectasis in the lungs.
[2018-09-15 16:43] VITALS: BP 169/66; PULSE 72; RESP 20; TEMP 37.4; O2SAT 97
[2018-09-15 16:47] VITALS: RESP 20
--- NOTE | 2018-09-15 16:48 | ED.GENADUL_ITS ---
Discharge Plan Disposition Patient Disposition: HOME Condition: Stable Discharge Details Chief Complaint: GenMedical Clinical Impression: Flu-like symptoms, Abdominal pain, Nausea & vomiting Primary Care Provider: Hood Santiago ED Provider: Vega Rodriguez [place] Meds and New Rx's Prescriptions: New oseltamivir [Tamiflu] 75 mg capsule 75 mg PO BID 5 Days Qty: 10 RF: 0 ondansetron 4 mg tablet,disintegrating 4 mg PO QID PRN (Reason: nausea and vomiting) Qty: 30 RF: 0 Continued prednisone 5 mg tablet 10 mg PO DAILY RF: 0 gabapentin 100 mg capsule 100 mg PO DAILY Qty: 60 RF: 1 gabapentin 100 mg capsule 100 mg PO DAILY Qty: 60 RF: 1 BD Blunt Plastic Cannula 1 EACH syringe 1 ea Miscellaneous monthly Qty: 3 RF: 3 ipratropium-albuterol 3 ML solution for nebulization 3 ml UPD Q6H PRNQty: 50 RF: 1 pantoprazole 40 MG tablet,delayed release (DR/EC) 40 mg PO BID Qty: 180 RF: 3 cyanocobalamin (vitamin B-12) 1,000 MCG/ML solution 1,000 mcg IM monthly Qty: 3 RF: 3 propranolol 20 MG tablet 20 mg PO BID Qty: 180 RF: 3 VENTOLIN HFA 60 PUFF Inh 2 puff IN PRN PRNRF: 0 balsalazide 750 MG capsule 1,500 mg PO TID RF: 0 acetaminophen [Tylenol Extra Strength] 500 MG tablet 500 mg PO DAILY RF: 0 Monoject Safety Syringes 3 mL 25 gauge x 5/8 syringe .ROUTE .MEDSUPPLY Qty: 100 RF: 12 escitalopram oxalate 20 mg tablet 20 mg PO DAILY 90 Days Qty: 90 RF: 3 levothyroxine 50 mcg capsule 50 mcg PO DAILY Qty: 90 RF: 3 Symbicort 80-4.5 mcg/actuation HFA aerosol inhaler 2 puff Inhalation BID Qty: 1 RF: 6 hyoscyamine sulfate 0.125 MG tablet, sublingual 1 - 2 tab PO TID PRNRF: 0 Discharge Instructions Additional Instructions: Your lab work and imaging did not show any concerning abnormalities at this time. You are being treated for influenza Follow up with your primary care provider as scheduled tomorrow for a recheck if you feel you are becoming more ill, have persistent vomit despite medication or have difficulty breathing return to the emergency department for reevaluation Medical Decision Making 78 yo female comes in with cc of not feeling well since Saturday. She states she has had a cough, general malaise, n/v since yesterday and today upper abdominal pain after dry heaving so came here. She had a temp to 99.9 earlier today. She denies recent travel, chest pain, headache, neck stiffness. She has upper abdominal tenderness without guarding or distention, diminished breath sounds on exam bilaterally at the bases without wheezing. Will evaluate for pna, sbo, pancreatitis, hepatitis, influenza with lab work and imaging of the chest/abd/pelvis. She has no ehadache or neck stiffness to suggest surgery assistant infection at this time. Will give fluids and monitor. labs show no acute findings, she feels better in terms of nausea, awaiting ct results CT shows no acute abnormalities. She remains stable. Her influenza test was negative but given her constellation of symptoms I do suspect influenza and will initiate tx for this. She is stable for outpatient management, will d/c home, return precautions given. She has no urinary symptoms so do not feel abx for UTI indicated Differential Diagnosis influenza, uri, pna Imaging Data Radiologic Study: Attestation: I personally reviewed and interpreted this imaging study as follows: Imaging: CT Scan Radiologist's impression: ct chest/abd/pelvis shows no acute findings Lab Data Lab results reviewed: Yes I reviewed the patient's lab results. ECG Data Attestation: I personally reviewed and interpreted this ECG (s) as follows: Prior ECG tracings: not available for review Interpretation: sinus rhythm, rate of 71, pr 160, qtc 422 HPI General Mode of arrival: ambulatory . Date/Time Provider Initiated Documentation: 09/15/18 16:32 . Limitations to Documentation: no limitations . Information obtained by: patient . History of Present Illness 78 year old F presents to the emergency department with the chief complaint of not feeling well, Patient started experiencing this day(s) (3) and it has been constant. No relieving factors improve symptom(s), No exacerbating factors reported . Patient notes cough and nausea/vomiting. Patient did receive the following treatments prior to arrival, none Related Data Home Medications Medication Instructions Recorded Confirmed hyoscyamine sulfate 1 - 2 tab PO TID PRN 06/30/17 09/15/18 BD Blunt Plastic Cannula #3 syringe 10/01/17 09/15/18 cyanocobalamin (vitamin B-12) 1,000 mcg IM monthly #3 vial 10/01/17 09/15/18 ipratropium-albuterol 3 ml UPD Q6H PRN #50 vial 10/01/17 09/15/18 pantoprazole 40 mg PO BID #180 tab 10/01/17 09/15/18 propranolol 20 mg PO BID #180 tab 10/01/17 09/15/18 acetaminophen [Tylenol Extra 500 mg PO DAILY tab 12/12/17 09/15/18 Strength] balsalazide 1,500 mg PO TID cap 12/12/17 09/15/18 syringe with needle, safety 3 mL #100 each 03/25/18 09/15/18 25 gauge x 5/8 escitalopram 20 mg tablet 20 mg PO DAILY 90 Days #90 tab 05/20/18 09/15/18 levothyroxine 50 mcg capsule 50 mcg PO DAILY #90 cap 05/22/18 09/15/18 budesonide-formoterol HFA 80 2 puff INHALATION BID #1 inh 06/02/18 09/15/18 mcg-4.5 mcg/actuation aerosol inhaler gabapentin 100 mg capsule 100 mg PO DAILY #60 cap 08/20/18 09/15/18 gabapentin 100 mg capsule 100 mg PO DAILY #60 cap 08/20/18 09/15/18 prednisone 5 mg tablet 10 mg PO DAILY tab 08/20/18 09/15/18 ondansetron 4 mg PO QID PRN #30 tab 09/15/18 oseltamivir [Tamiflu] 75 mg PO BID 5 Days #10 cap 09/15/18 Previous Rx's Medication Instructions Recorded cyanocobalamin (vitamin B-12) 1,000 mcg IM monthly #3 vial 10/01/17 pantoprazole 40 mg PO BID #180 tab 10/01/17 propranolol 20 mg PO BID #180 tab 10/01/17 syringe with needle, safety 3 mL #100 each 03/25/18 25 gauge x 5/8 escitalopram 20 mg tablet 20 mg PO DAILY 90 Days #90 tab 05/20/18 levothyroxine 50 mcg capsule 50 mcg PO DAILY #90 cap 05/22/18 budesonide-formoterol HFA 80 2 puff INHALATION BID #1 inh 06/02/18 mcg-4.5 mcg/actuation aerosol inhaler gabapentin 100 mg capsule 100 mg PO DAILY #60 cap 08/20/18 gabapentin 100 mg capsule 100 mg PO DAILY #60 cap 08/20/18 ondansetron 4 mg PO QID PRN #30 tab 09/15/18 oseltamivir [Tamiflu] 75 mg PO BID 5 Days #10 cap 09/15/18 Allergies Allergy/AdvReac Type Severity Reaction Status Date / Time acetaminophen AdvReac Intermediate Headache Verified 09/15/18 16:56 ibuprofen AdvReac Intermediate Headache Verified 09/15/18 16:56 lactose intolerant AdvReac Intermediate cramps, Uncoded 09/15/18 16:56 diarrhea Review of Systems Review of Systems All systems reviewed & are unremarkable except as noted in HPI and below Constitutional Reports chills ENT Denies change in voice Gastrointestinal Reports abdominal pain, Reports nausea and Reports vomiting Genitourinary Denies dysuria Musculoskeletal Denies joint swelling Integumentary/Breasts Denies rash Endocrine Denies cold intolerance and Denies heat intolerance PFSH Medical History Foot drop, left (Acute) Asthma (Chronic) Early stage nonexudative 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) Astigmatism of both eyes (Chronic) Grade 1 hypertensive retinopathy (Chronic) Chronic anemia (Chronic 09/04/17) Osteoporosis (Chronic 03/27/16) 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) Neck pain (Chronic 09/04/17) Migraines (Chronic 09/04/17) Hypothyroidism (Chronic 09/04/17) Fatigue (Chronic 09/04/17) Depression (Chronic 09/12/17) Crohn's disease with complication (Chronic 09/04/17) B12 deficiency (Chronic 09/04/17) Anxiety (Chronic 09/04/17) Hypomagnesemia (Resolved) Surgical History H/O colonoscopy (Chronic 04/07/18) Hiatal Hernia repair (09/11/17) Hysterectomy, Laproscopic Repair of umbilical hernia (09/11/17) Social History household members: children housing: apartment number of children: 3 what type of physical activity do you participate in: none Smoking and Tabacco status: Never alcohol intake: never substance use type: does not use History History Para 3 Hx # Term Pregnancies Multiple births Hx # Pregnancies Ectopic pregnancies AB induced Hx Number of Living Children AB spontaneous Exam Const General: no acute distress Orientation: alert HENMT Head: normal to inspection Ears: external ears normal General nose exam: external nose normal Mouth: moist mucous membranes Eyes General: appearance normal, both eyes and all related structures Neck Neck: normal visual inspection Resp Effort & Inspection: normal respiratory effort and able to speak in complete sentences Cardio Rate: regular rate Skin General skin exam: no rashes or lesions noted Neuro General: alert and oriented x3 Extrem General: normal to inspection Psych Mental Status: mental status grossly normal Course Lab/Test Results Lab/Test Results: 09/15/18 16:41 Nasopharynx Influenza Types A,B Antigen - Pending 09/15/18 16:41 Blood Blood Culture - Pending 09/15/18 16:41 Blood Blood Culture - Pending
[2018-09-15] MEDS: Normal Saline 1,000 ML 1000 ML IV (17:03)
[2018-09-15] MEDS: Ondansetron 4 MG/2 ML VIAL IVP (17:03)
[2018-09-15 17:07] LABS: Lactate-non-spesis 1.1 mmol/l (0.6-1.4)
[2018-09-15 17:13] LABS: Absolute Basophil Count 0.02 k/cumm (0.0-0.2); Absolute Eosinophil Count 0.02 k/cumm (0.0-0.7); Absolute Lymphocyte Count 0.52 k/cumm (1.2-3.4); Absolute Monocyte Count 0.28 k/cumm (0.11-0.7); Absolute Neutrophil Count 2.89 k/cumm (1.2-6.7); Basophils % 0.5; Eosinophils % 0.5; HCT 37.2 % (36.0-46.0); Lymphocytes % 13.9; Mean Corp. HGB Concentration 32.3 g/dL (32.0-36.0); Mean Corpuscular Hemoglobin 29.8 pg (27.0-33.0); Mean Corpuscular Volume 92.3 fL (80-95); Mean Platelet Volume 10.9 fL (8.0-11.0); Monocytes % 7.5; Neutrophils % 77.6; Platelet Count 103 x1000/uL (130-400); RBC 4.03 m/cumm (4.00-5.20); RBC Distribution Width 13.5 % (11.7-14.6); White Blood Cell Count 3.73 k/cumm (4.4-10.8)
[2018-09-15 17:21] LABS: PTT Activated 23.9 sec (21.0-31.4); Prothrombin Time 9.9 sec (9.3-11.0)
[2018-09-15 17:22] LABS: ALT 19 U/L (12-78); AST 37 U/L (15-37); Albumin 3.8 g/dL (3.4-5.0); Alkaline Phosphatase 179 U/L (46-116); Anion Gap 12.1 mmol/L (3-11); BUN 9 mg/dL (7-18); Bilirubin, Direct 0.27 mg/dL (0.00-0.20); Bilirubin, Total 0.8 mg/dL (0.2-1.0); CO2 24.9 mmol/L (21.0-32.0); Calcium 8.5 mg/dL (8.5-10.1); Chloride 103 mmol/L (98-107); Glucose 98 mg/dL (70-100); Lipase 172 U/L (73-393); Magnesium 1.6 mg/dL (1.8-2.4); Potassium 3.6 mmol/L (3.5-5.1); Sodium 140 mmol/L (136-145); Total Protein 7.7 g/dL (6.4-8.2)
[2018-09-15] MEDS: Omnipaque 350 MG/ML 100 ML BTL IV (18:25)
--- NOTE | 2018-09-15 18:44 | DI.VRAD_ITS ---
EXAM: CT Chest With Contrast EXAM DATE/TIME: 09/15/2018 4:43 PM CLINICAL HISTORY: 78 years old, female; Pain; Abdominal pain; Chest pain TECHNIQUE: Axial computed tomography images of the chest with intravenous contrast. Coronal and sagittal reformatted images were created and reviewed. COMPARISON: CR CHEST 2 VIEWS PA,LAT 03/20/2018 5:20 PM FINDINGS: Thyroid: There is a 5 mm in size nodule within the right lobe of the thyroid gland. Otherwise the thyroid gland is unremarkable. Lungs: There is a slight area of fibrosis within the right upper lobe. There is slight scarring and atelectasis at the right lung base. Pleural space: Normal. No pneumothorax. No pleural effusion. Heart: Normal. No cardiomegaly. No pericardial effusion. Mediastinum: There is a small hiatal hernia. The tracheal and bronchial tree are patent bilaterally. Aorta: There are arteriosclerotic changes of the aorta. Lymph nodes: There is bilateral hilar adenopathy. There is a precarinal lymph node measuring up to 6 mm in its short axis. Bones/joints: There are degenerative changes of the thoracic spine. Soft tissues: Unremarkable. Stomach and bowel: The patient is status post gastric surgery. IMPRESSION: Small thyroid nodule does not need to be followed up. Arteriosclerotic changes of the aorta. Small hiatal hernia. Gastric surgery. Adenopathy as above. EXAM: CT Abdomen and Pelvis With Contrast EXAM DATE/TIME: 09/15/2018 4:43 PM CLINICAL HISTORY: 78 years old, female; Pain; Abdominal pain; Chest pain TECHNIQUE: Axial computed tomography images of the abdomen and pelvis with intravenous contrast. Coronal and sagittal reformatted images were created and reviewed. COMPARISON: CR CHEST 2 VIEWS PA,LAT 03/20/2018 5:20 PM FINDINGS: Lower thorax: Please see CT scan of the chest report above. ABDOMEN: Liver: The liver is within normal limits. Gallbladder and bile ducts: The gallbladder is unremarkable. Pancreas: The pancreas is within normal limits. Spleen: The spleen is prominent. Adrenals: The adrenal glands are unremarkable. Kidneys and ureters: The right kidney is within normal limits. There is a small suspected left midpole renal cyst measuring 7 mm. Stomach and bowel: There is no evidence of bowel obstruction. Appendix: No evidence of appendicitis. PELVIS: Bladder: The urinary bladder is unremarkable. Reproductive: The patient is status post hysterectomy. ABDOMEN and PELVIS: Intraperitoneal space: Normal. No free air. No significant fluid collection. Bones/joints: There are degenerative changes of the lumbar spine. The patient is status post laminectomy at L5-S1. There is a replaced disc at this level. There is degenerative disc disease at L3-L4 and L4-L5. Soft tissues: Unremarkable. Vasculature: There are arteriosclerotic changes of the aorta. Lymph nodes: No enlarged lymph nodes. IMPRESSION: Splenomegaly. Osseous findings as above. Status post hysterectomy. Small midpole left renal cyst. Dictated and Authenticated by: Cody Bansal MD. Ordering:CHHAYA Ferrari MD
[2018-09-15 18:49] LABS: Bilirubin Negative (Negative); Blood Trace-intact (Negative); Clarity Clear; Glucose Negative (Negative); Ketones Trace mg/dL (Negative); Leukocyte Esterase Negative (Negative); Nitrite Positive (Negative); Urobilinogen 0.2 EU/dL (Up TO 0.2)
[2018-09-15 19:07] LABS: Bacteria Many HPF (Negative); C & S Indicated? Yes; Casts Negative LPF (Negative); Crystals Negative HPF (Negative); Epithelial Cells Negative HPF (Negative); Mucus Negative (Negative); Other Cells Negative (Negative); RBC Negative (0-2)
[2018-09-15] MEDS: Oseltamivir 75 MG CAP PO (19:19)
[2018-09-15 19:20] VITALS: BP 169/66; PULSE 72; RESP 20; TEMP 37.4; O2SAT 97
== END 2018-09-15 19:13 | disposition home or self-care (01) ==
PROVIDERS: Emergency Provider Emergency Medicine; PCP Family Medicine
DX: R11.2 Nausea with vomiting, unspecified (principal); R10.10 Upper abdominal pain, unspecified; J11.2 Influenza due to unidentified influenza virus with gastrointestinal manifestations; I10 Essential (primary) hypertension
CPT/HCPCS: 36415; 74177; 80053; 80076; 83690; 87040; 87077; 87449; 93005; 96361; 96374; 99285; 71260; 81003; 81015; 83605; 83735; 85025; 85610; 85730; 87086; 87186; 93010; 99284; J2405; J3490

== ENCOUNTER 2018-09-16 10:00 | Emergency (ER) | payer MEDICARE, OTHER, SELFPAY ==
[2018-09-16 10:11] VITALS: BP 167/68; PULSE 74; RESP 20; TEMP 37.8; O2SAT 96
--- NOTE | 2018-09-16 10:32 | DI.RAD_ITS ---
SYMPTOMS/DIAGNOSIS: COUGH, FEVER CHEST: Two views. Comparison is 03/20/18. There is poor inspiration. The heart size and pulmonary vasculature are stable and within normal limits given the projection. No infiltrates, effusions or pneumothoraces are identified. The spine appears intact. IMPRESSION: No acute pulmonary process.
--- NOTE | 2018-09-16 10:37 | ED.GENADUL_ITS ---
Discharge Plan Disposition Patient Disposition: HOME Condition: Improving Discharge Details Chief Complaint: Nausea/Vomit/Diar Clinical Impression: Acute pharyngitis Primary Care Provider: Hood Santiago ED Provider: Lowell Hemphill Home Meds and New Rx's Prescriptions: New penicillin V potassium 500 mg tablet 500 mg PO TID 10 Days Qty: 30 RF: 0 Continued prednisone 5 mg tablet 10 mg PO DAILY RF: 0 gabapentin 100 mg capsule 100 mg PO DAILY Qty: 60 RF: 1 gabapentin 100 mg capsule 100 mg PO DAILY Qty: 60 RF: 1 BD Blunt Plastic Cannula 1 EACH syringe 1 ea Miscellaneous monthly Qty: 3 RF: 3 ipratropium-albuterol 3 ML solution for nebulization 3 ml UPD Q6H PRNQty: 50 RF: 1 pantoprazole 40 MG tablet,delayed release (DR/EC) 40 mg PO BID Qty: 180 RF: 3 cyanocobalamin (vitamin B-12) 1,000 MCG/ML solution 1,000 mcg IM monthly Qty: 3 RF: 3 propranolol 20 MG tablet 20 mg PO BID Qty: 180 RF: 3 VENTOLIN HFA 60 PUFF Inh 2 puff IN PRN PRNRF: 0 balsalazide 750 MG capsule 1,500 mg PO TID RF: 0 acetaminophen [Tylenol Extra Strength] 500 MG tablet 500 mg PO DAILY RF: 0 Monoject Safety Syringes 3 mL 25 gauge x 5/8 syringe .ROUTE .MEDSUPPLY Qty: 100 RF: 12 escitalopram oxalate 20 mg tablet 20 mg PO DAILY 90 Days Qty: 90 RF: 3 levothyroxine 50 mcg capsule 50 mcg PO DAILY Qty: 90 RF: 3 Symbicort 80-4.5 mcg/actuation HFA aerosol inhaler 2 puff Inhalation BID Qty: 1 RF: 6 ondansetron 4 mg tablet,disintegrating 4 mg PO QID PRN (Reason: nausea and vomiting) Qty: 30 RF: 0 hyoscyamine sulfate 0.125 MG tablet, sublingual 1 - 2 tab PO TID PRNRF: 0 Discontinued oseltamivir [Tamiflu] 75 mg capsule 75 mg PO BID 5 Days Qty: 10 RF: 0 Discharge Instructions Instructions: Pharyngitis (ED) Additional Instructions: Home to rest today. Continue small, frequent sips of fluids and/or popsicles. May use the previously prescribed Zofran if needed for nausea. Stop Tamiflu. Begin penicillin as prescribed. Follow-up with regular doctor if not improving in 3 days time. Return to the emergency department for any acute concern Medical Decision Making 78-year-old female presents from home with persistent nausea and vomiting after visit to the emergency room yesterday. At that time she had negative influenza test with clinical picture consistent with same and was placed on Tamiflu. She is noted to have developed a urticarial rash on the chest since beginning the Tamiflu and had nausea and vomiting which is resistant to home use of Zofran. She arrives a temperature of 37.8, pulse 74, blood pressure 167/60. She has a soft, nondistended abdomen, and is clinically dehydrated . Patient received IV fluid, antiemetic, was referred for chest x-ray and repeat influenza testing. Her diagnostics are improving from yesterday, she does not have any acute changes on chest x-ray, she is improved and taking liquids by mouth. Will discontinue Tamiflu, placed patient on penicillin for positive streptococcal pharyngitis. She may continue antiemetics at home is stable for discharge to home with her daughter Lab Data Lab results reviewed: Yes I reviewed the patient's lab results. Laboratory Results - last 24 hr 09/16/18 09/16/18 10:32 10:55 WBC 4.43 RBC 4.06 Hgb 12.3 Hct 37.6 MCV 92.6 MCH 30.3 MCHC 32.7 RDW 13.4 Plt Count 108 L MPV 10.6 Immature Gran % 0.0 Neutrophils % 88.4 Lymphocytes % 6.8 Monocytes % 4.1 Eosinophils % 0.2 Basophils % 0.5 Absolute Neutrophils 3.92 Absolute Lymphocytes 0.30 L Absolute Monocytes 0.18 Absolute Eosinophils 0.01 Absolute Basophils 0.02 Differential Comment Plt morph reviewed RBC Morphology Normal Sodium 138 Potassium 3.7 Chloride 103 Carbon Dioxide 25.7 Anion Gap 9.3 BUN 10 Creatinine 0.72 Estimated GFR/1.73 m2 >= 60.00 Glucose 101 H Calcium 9.1 HPI General Mode of arrival: ambulatory . Date/Time Provider Initiated Documentation: 09/16/18 10:21 . Limitations to Documentation: no limitations . Information obtained by: patient and family . History of Present Illness 78 year old F presents to the emergency department with the chief complaint of Seen here yesterday, ongoing nausea and vomiting with fever and cough, described as moderate, Quality is described as dull, and is localized to the abdomen. Patient reports no radiation. Patient started experiencing this day(s) and it has been constant. No relieving factors improve symptom(s), Eating worsens symptoms . Patient notes cough, fever/chills, nausea/vomiting and weakness. Patient did receive the following treatments prior to arrival, other (Zofran at home) Related Data Home Medications Medication Instructions Recorded Confirmed hyoscyamine sulfate 1 - 2 tab PO TID PRN 06/30/17 09/16/18 BD Blunt Plastic Cannula #3 syringe 10/01/17 09/16/18 cyanocobalamin (vitamin B-12) 1,000 mcg IM monthly #3 vial 10/01/17 09/16/18 ipratropium-albuterol 3 ml UPD Q6H PRN #50 vial 10/01/17 09/16/18 pantoprazole 40 mg PO BID #180 tab 10/01/17 09/16/18 propranolol 20 mg PO BID #180 tab 10/01/17 09/16/18 acetaminophen [Tylenol Extra 500 mg PO DAILY tab 12/12/17 09/16/18 Strength] balsalazide 1,500 mg PO TID cap 12/12/17 09/16/18 syringe with needle, safety 3 mL #100 each 03/25/18 09/16/18 25 gauge x 5/8 escitalopram 20 mg tablet 20 mg PO DAILY 90 Days #90 tab 05/20/18 09/16/18 levothyroxine 50 mcg capsule 50 mcg PO DAILY #90 cap 05/22/18 09/16/18 budesonide-formoterol HFA 80 2 puff INHALATION BID #1 inh 06/02/18 09/16/18 mcg-4.5 mcg/actuation aerosol inhaler gabapentin 100 mg capsule 100 mg PO DAILY #60 cap 08/20/18 09/16/18 gabapentin 100 mg capsule 100 mg PO DAILY #60 cap 08/20/18 09/16/18 prednisone 5 mg tablet 10 mg PO DAILY tab 08/20/18 09/16/18 ondansetron 4 mg PO QID PRN #30 tab 09/15/18 09/16/18 penicillin V potassium 500 mg PO TID 10 Days #30 tab 09/16/18 Previous Rx's Medication Instructions Recorded cyanocobalamin (vitamin B-12) 1,000 mcg IM monthly #3 vial 10/01/17 pantoprazole 40 mg PO BID #180 tab 10/01/17 propranolol 20 mg PO BID #180 tab 10/01/17 syringe with needle, safety 3 mL #100 each 03/25/18 25 gauge x 5/8 escitalopram 20 mg tablet 20 mg PO DAILY 90 Days #90 tab 05/20/18 levothyroxine 50 mcg capsule 50 mcg PO DAILY #90 cap 05/22/18 budesonide-formoterol HFA 80 2 puff INHALATION BID #1 inh 06/02/18 mcg-4.5 mcg/actuation aerosol inhaler gabapentin 100 mg capsule 100 mg PO DAILY #60 cap 08/20/18 gabapentin 100 mg capsule 100 mg PO DAILY #60 cap 08/20/18 ondansetron 4 mg PO QID PRN #30 tab 09/15/18 penicillin V potassium 500 mg PO TID 10 Days #30 tab 09/16/18 Allergies Allergy/AdvReac Type Severity Reaction Status Date / Time acetaminophen AdvReac Intermediate Headache Verified 09/16/18 10:23 ibuprofen AdvReac Intermediate Headache Verified 09/16/18 10:23 lactose intolerant AdvReac Intermediate cramps, Uncoded 09/16/18 10:23 diarrhea General Stated Complaint: Nausea/Vomit/Diar ADALGISA: 3 Review of Systems Review of Systems 8 systems reviewed and otherwise negative [facility] Medical History Foot drop, left (Acute) Asthma (Chronic) Early stage nonexudative 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) Astigmatism of both eyes (Chronic) Grade 1 hypertensive retinopathy (Chronic) Chronic anemia (Chronic 09/04/17) Osteoporosis (Chronic 03/27/16) 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) Neck pain (Chronic 09/04/17) Migraines (Chronic 09/04/17) Hypothyroidism (Chronic 09/04/17) Fatigue (Chronic 09/04/17) Depression (Chronic 09/12/17) Crohn's disease with complication (Chronic 09/04/17) B12 deficiency (Chronic 09/04/17) Anxiety (Chronic 09/04/17) Hypomagnesemia (Resolved) Surgical History H/O colonoscopy (Chronic 04/07/18) Hiatal Hernia repair (09/11/17) Hysterectomy, Laproscopic Repair of umbilical hernia (09/11/17) Social History household members: children housing: apartment number of children: 3 what type of physical activity do you participate in: none Smoking and Tabacco status: Never alcohol intake: never substance use type: does not use History History Para 3 Hx # Term Pregnancies Multiple births Hx # Pregnancies Ectopic pregnancies AB induced Hx Number of Living Children AB spontaneous Exam Narrative Exam Narrative: GEN: awake, alert, oriented 3. Pleasant, well groomed, interactive. HEAD: Normocephalic, atraumatic ENT: Mucous membranes dry, oropharynx unremarkable, External ear exam unremarkable EYES: PERRL, EOMI NECK: Full ROM, no JONATHAN, no menigismus CHEST/RESP: Nontender, clear to auscultation bilateral, no wheeze/rhonchi/rales CARDIOVASCULAR: RRR, no murmur, rub dagoberto. 2+ Rad pulse bilateral ABDOMEN: Soft, nontender, no mass. +Bowel sounds EXT: Full ROM, no edema, blanching urticarial rash on chest wall anteriorly Neuro: Grossly normal neurologic exam, conversant, interactive. Psych: Speech fluent, thoughts congruent, affect normal Course Vital Signs Temperature 37.8 C H 09/16/18 10:11 Pulse 74 09/16/18 10:11 Respiratory Rate 20 09/16/18 10:11 Blood Pressure 167/68 H 09/16/18 10:11 Pulse Oximetry 96 09/16/18 10:11 Temperature 37.8 C H 09/16/18 10:11 Temperature Source Temporal Artery Scan 09/16/18 10:11 Pulse 74 09/16/18 10:11 Respiratory Rate 20 09/16/18 10:11 Respiratory Effort Non-Labored 09/16/18 10:11 Blood Pressure 167/68 H 09/16/18 10:11 Pulse Oximetry 96 09/16/18 10:11 Oxygen Delivery Method Room Air 09/16/18 10:11 Oxygen Flow Rate 0 09/16/18 10:11 Pain Level 6 09/16/18 10:11 Lab/Test Results Lab/Test Results: POC Strep Test-CANDACE(Rapid) Start: 09/16/18 10:15 Freq: Status: Active Protocol: Document 09/16/18 10:21 TB (Rec: 09/16/18 10:21 TB [id number]) Strep test-CANDACE(Rapid)-POC POC-Strep test-CANDACE (Rapid) Positive POC-Strep test-CANDACE (Rapid) Positive
[2018-09-16] MEDS: Normal Saline 1,000 ML 1000 ML IV (11:02)
[2018-09-16] MEDS: Ketorolac 30 MG/ML VIAL 15 MG IVP (11:05)
[2018-09-16] MEDS: Acetaminophen 325 MG TAB (11:05)
[2018-09-16 11:08] LABS: Absolute Basophil Count 0.02 k/cumm (0.0-0.2); Absolute Eosinophil Count 0.01 k/cumm (0.0-0.7); Absolute Monocyte Count 0.18 k/cumm (0.11-0.7); Absolute Neutrophil Count 3.92 k/cumm (1.2-6.7); Basophils % 0.5; Eosinophils % 0.2; HCT 37.6 % (36.0-46.0); HGB 12.3 g/dL (12.0-15.5); Lymphocytes % 6.8; Mean Corp. HGB Concentration 32.7 g/dL (32.0-36.0); Mean Corpuscular Hemoglobin 30.3 pg (27.0-33.0); Mean Corpuscular Volume 92.6 fL (80-95); Mean Platelet Volume 10.6 fL (8.0-11.0); Monocytes % 4.1; Neutrophils % 88.4; RBC 4.06 m/cumm (4.00-5.20); RBC Distribution Width 13.4 % (11.7-14.6); White Blood Cell Count 4.43 k/cumm (4.4-10.8)
[2018-09-16 11:16] LABS: Anion Gap 9.3 mmol/L (3-11); BUN 10 mg/dL (7-18); CO2 25.7 mmol/L (21.0-32.0); CREATININE 0.72 mg/dL (0.55-1.02); Calcium 9.1 mg/dL (8.5-10.1); Chloride 103 mmol/L (98-107); Glucose 101 mg/dL (70-100); Potassium 3.7 mmol/L (3.5-5.1); Sodium 138 mmol/L (136-145)
[2018-09-16 11:21] LABS: Platelet Count 108 x1000/uL (130-400)
[2018-09-16 11:22] LABS: Diff Comment PLT Morph Reviewed; RBC Morphology Normal
[2018-09-16] MEDS: Acetaminophen 325 MG TAB PO (12:03)
[2018-09-16 13:27] VITALS: BP 110/60; PULSE 74; RESP 20; TEMP 36.5; O2SAT 98
== END 2018-09-16 13:13 | disposition home or self-care (01) ==
PROVIDERS: Emergency Provider Emergency Medicine; PCP Family Medicine
DX: J02.0 Streptococcal pharyngitis (principal); R11.2 Nausea with vomiting, unspecified; T37.5X5A Adverse effect of antiviral drugs, initial encounter; E86.0 Dehydration; I10 Essential (primary) hypertension
CPT/HCPCS: 36415; 80048; 87449; 87880; 96374; 99284; 71046; 85025; J1885

== ENCOUNTER 2018-09-18 01:14 | Outpatient (RCR) | payer MEDICARE, OTHER, SELFPAY ==
[2018-09-18 13:31] LABS: Absolute Basophil Count 0.03 k/cumm (0.0-0.2); Absolute Eosinophil Count 0.07 k/cumm (0.0-0.7); Absolute Lymphocyte Count 0.71 k/cumm (1.2-3.4); Absolute Monocyte Count 0.22 k/cumm (0.11-0.7); Absolute Neutrophil Count 2.33 k/cumm (1.2-6.7); Basophils % 0.9; Eosinophils % 2.1; HCT 37.4 % (36.0-46.0); HGB 11.9 g/dL (12.0-15.5); Lymphocytes % 21.1; Mean Corp. HGB Concentration 31.8 g/dL (32.0-36.0); Mean Corpuscular Hemoglobin 29.6 pg (27.0-33.0); Mean Platelet Volume 10.6 fL (8.0-11.0); Monocytes % 6.5; Neutrophils % 69.4; Platelet Count 132 x1000/uL (130-400); RBC 4.02 m/cumm (4.00-5.20); RBC Distribution Width 13.5 % (11.7-14.6); White Blood Cell Count 3.36 k/cumm (4.4-10.8)
[2018-09-18] MEDS: Normal Saline Flush 10 ML SYR IVP (13:33)
[2018-09-18 13:51] LABS: Iron 59 ug/dL (50-175); Total Iron Binding Capacity 277 ug/dL (250-450); Transferrin Sat 21 % (15-50)
== END 2018-09-18 23:59 | disposition home or self-care (01) ==
LOC: INF 01:14
PROVIDERS: PCP Family Medicine; Visit Provider Family Medicine
DX: E61.1 Iron deficiency (principal)
CPT/HCPCS: 96365; 83540; 83550; 85025; J1756

== ENCOUNTER → 2018-09-24 12:12 | Outpatient (BNVA) | payer MEDICARE, OTHER, SELFPAY | PROVIDERS: PCP Family Medicine; Visit Provider Nurse Practitioner Adult Health | DX: G43.009 Migraine without aura, not intractable, without status migrainosus (principal) | CPT/HCPCS: 99213 ==

== ENCOUNTER 2018-10-16 00:45 | Outpatient (RCR) | payer MEDICARE, OTHER, SELFPAY ==
[2018-10-16] MEDS: Normal Saline Flush 10 ML SYR IVP (13:19)
== END 2018-10-19 23:59 | disposition home or self-care (01) ==
LOC: INF 00:45
PROVIDERS: PCP Family Medicine; Visit Provider Family Medicine
DX: E61.1 Iron deficiency (principal)
CPT/HCPCS: 96365; J1756

== ENCOUNTER 2018-11-11 02:11 | Outpatient (RCR) | payer MEDICARE, OTHER, SELFPAY ==
[2018-11-11] MEDS: Normal Saline Flush 10 ML SYR IVP (13:25)
[2018-11-11 15:16] LABS: Abs Immature Grans 0.01 k/cumm (0.0-0.09); Absolute Basophil Count 0.02 k/cumm (0.0-0.2); Absolute Eosinophil Count 0.05 k/cumm (0.0-0.7); Absolute Lymphocyte Count 0.82 k/cumm (1.2-3.4); Absolute Monocyte Count 0.25 k/cumm (0.11-0.7); Absolute Neutrophil Count 2.36 k/cumm (1.2-6.7); Basophils % 0.6; Eosinophils % 1.4; HCT 26.7 % (36.0-46.0); HGB 8.1 g/dL (12.0-15.5); Immature Grans % 0.3; Lymphocytes % 23.4; Mean Corp. HGB Concentration 30.3 g/dL (32.0-36.0); Mean Corpuscular Hemoglobin 28.5 pg (27.0-33.0); Mean Platelet Volume 10.3 fL (8.0-11.0); Monocytes % 7.1; Neutrophils % 67.2; Platelet Count 123 x1000/uL (130-400); RBC 2.84 m/cumm (4.00-5.20); RBC Distribution Width 14.2 % (11.7-14.6); White Blood Cell Count 3.51 k/cumm (4.4-10.8)
[2018-11-11 15:36] LABS: Basophilic Stippling Present; Hypochromasia 1+
[2018-11-11 15:37] LABS: Polychromasia Present
[2018-11-11 16:18] LABS: Iron 612 ug/dL (50-175); Total Iron Binding Capacity 632 ug/dL (250-450); Transferrin Sat 97 % (15-50)
== END 2018-11-18 23:59 | disposition home or self-care (01) ==
LOC: INF 02:11
PROVIDERS: PCP Family Medicine; Visit Provider Family Medicine
DX: E61.1 Iron deficiency (principal)
CPT/HCPCS: 36415; 96365; 83540; 83550; 85025; J1756

== ENCOUNTER 2018-12-09 00:55 | Outpatient (RCR) | payer MEDICARE, OTHER, SELFPAY ==
[2018-12-09] MEDS: Normal Saline Flush 10 ML SYR IVP (13:19)
[2018-12-09 14:03] LABS: TSH 0.52 uIU/mL (0.358-3.74); Vitamin B12 460 pg/mL (193-986)
== END 2018-12-19 23:59 | disposition home or self-care (01) ==
LOC: INF 00:55
PROVIDERS: Nurse Practitioner Adult Health; PCP Family Medicine; Visit Provider Family Medicine
DX: E61.1 Iron deficiency (principal); G43.709 Chronic migraine without aura, not intractable, without status migrainosus; R41.3 Other amnesia; G47.30 Sleep apnea, unspecified; I67.850 Cerebral autosomal dominant arteriopathy with subcortical infarcts and leukoencephalopathy; F02.80 Dementia in other diseases classified elsewhere, unspecified severity, without behavioral disturbance, psychotic disturbance, mood disturbance, and anxiety; G43.009 Migraine without aura, not intractable, without status migrainosus
CPT/HCPCS: 36415; 96365; 99214; 82607; 84443; J1756

== ENCOUNTER 2019-02-03 02:25 | Outpatient (RCR) | payer MEDICARE, OTHER, SELFPAY ==
[2019-02-03] VITALS (10 sets, daily range): BP systolic 150–176; BP diastolic 63–88; PULSE 58–66; RESP 16–18; TEMP 35.4–36.7; O2SAT 97–99
[2019-02-03 13:16] LABS: Abs Immature Grans 0.01 k/cumm (0.0-0.09); Absolute Basophil Count 0.07 k/cumm (0.0-0.2); Absolute Eosinophil Count 0.03 k/cumm (0.0-0.7); Absolute Lymphocyte Count 0.64 k/cumm (1.2-3.4); Absolute Monocyte Count 0.28 k/cumm (0.11-0.7); Absolute Neutrophil Count 2.21 k/cumm (1.2-6.7); Basophils % 2.2; Eosinophils % 0.9; Immature Grans % 0.3; Lymphocytes % 19.8; Mean Corp. HGB Concentration 27.9 g/dL (32.0-36.0); Mean Corpuscular Hemoglobin 21.6 pg (27.0-33.0); Mean Corpuscular Volume 77.3 fL (80-95); Mean Platelet Volume 10.7 fL (8.0-11.0); Monocytes % 8.6; Neutrophils % 68.2; Platelet Count 175 x1000/uL (130-400); RBC 2.69 m/cumm (4.00-5.20); RBC Distribution Width 18.1 % (11.7-14.6); White Blood Cell Count 3.24 k/cumm (4.4-10.8)
[2019-02-03 13:26] LABS: HGB 5.8 g/dL (12.0-15.5)
[2019-02-03 13:27] LABS: HCT 20.8 % (36.0-46.0)
[2019-02-03] MEDS: Normal Saline Flush 10 ML SYR IVP (13:29)
[2019-02-03 13:36] LABS: Anisocytosis 2+; Diff Comment RBC Morph Reviewed; Hypochromasia 3+
[2019-02-03 13:37] LABS: Microcytosis 3+
[2019-02-03 13:38] LABS: Poikilocytes 2+
[2019-02-03 13:41] LABS: Iron 16 ug/dL (50-175); Total Iron Binding Capacity 444 ug/dL (250-450); Transferrin Sat 4 % (15-50)
[2019-02-03 13:54] LABS: Ferritin 14 ng/mL (8-388)
[2019-02-03] MEDS: Acetaminophen 325 MG TAB (15:57)
== END 2019-02-18 23:59 | disposition home or self-care (01) ==
LOC: INF 02:25
PROVIDERS: PCP Family Medicine; Visit Provider Family Medicine
DX: D50.9 Iron deficiency anemia, unspecified (principal)
CPT/HCPCS: 36415; 36430; 86850; 86900; 86901; 86920; 96365; 82728; 83540; 83550; 85025; J1756; P9016

== ENCOUNTER 2019-02-05 10:17 | Outpatient (CLI) | payer MEDICARE, OTHER, SELFPAY ==
[2019-02-05 11:02] LABS: Absolute Basophil Count 0.04 k/cumm (0.0-0.2); Absolute Eosinophil Count 0.08 k/cumm (0.0-0.7); Absolute Lymphocyte Count 0.49 k/cumm (1.2-3.4); Absolute Monocyte Count 0.24 k/cumm (0.11-0.7); Absolute Neutrophil Count 2.13 k/cumm (1.2-6.7); Basophils % 1.3; Eosinophils % 2.7; HCT 28.4 % (36.0-46.0); HGB 8.4 g/dL (12.0-15.5); Lymphocytes % 16.4; Mean Corp. HGB Concentration 29.6 g/dL (32.0-36.0); Mean Corpuscular Hemoglobin 23.6 pg (27.0-33.0); Mean Corpuscular Volume 79.8 fL (80-95); Mean Platelet Volume 10.6 fL (8.0-11.0); Monocytes % 8.1; Neutrophils % 71.5; Platelet Count 135 x1000/uL (130-400); RBC 3.56 m/cumm (4.00-5.20); RBC Distribution Width 18.9 % (11.7-14.6); White Blood Cell Count 2.98 k/cumm (4.4-10.8)
== END 2019-02-05 10:37 ==
PROVIDERS: PCP Family Medicine; Visit Provider Family Medicine
DX: D50.9 Iron deficiency anemia, unspecified (principal)
CPT/HCPCS: 36415; 85025

== ENCOUNTER 2019-03-31 00:39 | Outpatient (RCR) | payer MEDICARE, OTHER, SELFPAY ==
[2019-03-31] MEDS: Normal Saline Flush 10 ML SYR IVP (13:07)
[2019-03-31 13:11] LABS: Abs Immature Grans 0.01 k/cumm (0.0-0.09); Absolute Basophil Count 0.05 k/cumm (0.0-0.2); Absolute Eosinophil Count 0.08 k/cumm (0.0-0.7); Absolute Lymphocyte Count 0.53 k/cumm (1.2-3.4); Absolute Monocyte Count 0.24 k/cumm (0.11-0.7); Absolute Neutrophil Count 2.32 k/cumm (1.2-6.7); Basophils % 1.5; Eosinophils % 2.5; HCT 30.4 % (36.0-46.0); HGB 8.9 g/dL (12.0-15.5); Immature Grans % 0.3; Lymphocytes % 16.4; Mean Corp. HGB Concentration 29.3 g/dL (32.0-36.0); Mean Corpuscular Hemoglobin 23.8 pg (27.0-33.0); Mean Corpuscular Volume 81.3 fL (80-95); Mean Platelet Volume 10.8 fL (8.0-11.0); Monocytes % 7.4; Neutrophils % 71.9; Platelet Count 212 x1000/uL (130-400); RBC 3.74 m/cumm (4.00-5.20); RBC Distribution Width 19.2 % (11.7-14.6); White Blood Cell Count 3.23 k/cumm (4.4-10.8)
[2019-03-31 13:38] LABS: Ferritin 18 ng/mL (8-388)
== END 2019-04-20 23:59 | disposition home or self-care (01) ==
LOC: INF 00:39
PROVIDERS: PCP Family Medicine; Visit Provider Family Medicine
DX: D50.9 Iron deficiency anemia, unspecified (principal)
CPT/HCPCS: 36415; 96365; 96366; 82728; 83540; 83550; 85025; J1756

== ENCOUNTER 2019-05-22 00:58 | Outpatient (RCR) | payer MEDICARE, OTHER, SELFPAY ==
[2019-05-22] MEDS: IRON SUCROSE COMPLEX 300 MG in Normal Saline 250 ML 176.667 MG IVPB (10:34)
[2019-05-22] MEDS: Normal Saline Flush 10 ML SYR IVP (10:38)
[2019-05-22 10:56] LABS: Absolute Basophil Count 0.05 k/cumm (0.0-0.2); Absolute Eosinophil Count 0.04 k/cumm (0.0-0.7); Absolute Lymphocyte Count 0.45 k/cumm (1.2-3.4); Absolute Monocyte Count 0.19 k/cumm (0.11-0.7); Basophils % 1.7; Eosinophils % 1.4; HCT 27.7 % (36.0-46.0); HGB 8.1 g/dL (12.0-15.5); Lymphocytes % 15.4; Mean Corp. HGB Concentration 29.2 g/dL (32.0-36.0); Mean Corpuscular Hemoglobin 23.5 pg (27.0-33.0); Mean Corpuscular Volume 80.5 fL (80-95); Mean Platelet Volume 10.3 fL (8.0-11.0); Monocytes % 6.5; Platelet Count 159 x1000/uL (130-400); RBC 3.44 m/cumm (4.00-5.20); RBC Distribution Width 16.9 % (11.7-14.6); White Blood Cell Count 2.93 k/cumm (4.4-10.8)
[2019-05-22 11:03] LABS: Iron 25 ug/dL (50-175); Total Iron Binding Capacity 405 ug/dL (250-450); Transferrin Sat 6 % (15-50)
[2019-05-22 11:08] LABS: Anisocytosis 1+; Diff Comment RBC Morph Reviewed; Hypochromasia 1+
[2019-05-22 11:11] LABS: ALT 22 U/L (14-59); AST 25 U/L (15-37); Albumin 3.6 g/dL (3.4-5.0); Alkaline Phosphatase 135 U/L (46-116); Anion Gap 6.9 mmol/L (3-11); BUN 11 mg/dL (7-18); Bilirubin, Total 0.6 mg/dL (0.2-1.0); CO2 29.1 mmol/L (21.0-32.0); CREATININE 0.79 mg/dL (0.55-1.02); Calcium 8.9 mg/dL (8.5-10.1); Chloride 106 mmol/L (98-107); Ferritin 13 ng/mL (8-388); Glucose 91 mg/dL (70-100); Potassium 3.7 mmol/L (3.5-5.1); Sodium 142 mmol/L (136-145)
== END 2019-06-20 23:59 | disposition home or self-care (01) ==
LOC: INF 00:58
PROVIDERS: Internal Medicine Gastroenterology; PCP Family Medicine; Visit Provider Family Medicine
DX: D50.9 Iron deficiency anemia, unspecified (principal)
CPT/HCPCS: 36415; 80053; 96365; 96366; 82728; 83540; 83550; 85025; J1756

== ENCOUNTER → 2019-06-15 14:43 | Outpatient (BNVA) | payer MEDICARE, OTHER, SELFPAY | PROVIDERS: PCP Family Medicine; Referring Provider Family Medicine; Visit Provider Nurse Practitioner Adult Health | DX: G43.709 Chronic migraine without aura, not intractable, without status migrainosus (principal); R41.3 Other amnesia; R42 Dizziness and giddiness; F32.9 Major depressive disorder, single episode, unspecified; E53.8 Deficiency of other specified B group vitamins | CPT/HCPCS: 99213 ==

== ENCOUNTER 2019-07-01 01:30 | Outpatient (RCR) | payer MEDICARE, OTHER, SELFPAY ==
[2019-07-01] MEDS: IRON SUCROSE COMPLEX 300 MG in Normal Saline 250 ML 176.667 MG IVPB (13:01)
[2019-07-01] MEDS: Normal Saline Flush 10 ML SYR IVP (13:02)
[2019-07-01 13:07] LABS: Abs Immature Grans 0.01 k/cumm (0.0-0.09); Absolute Basophil Count 0.04 k/cumm (0.0-0.2); Absolute Eosinophil Count 0.08 k/cumm (0.0-0.7); Absolute Lymphocyte Count 0.59 k/cumm (1.2-3.4); Absolute Monocyte Count 0.24 k/cumm (0.11-0.7); Absolute Neutrophil Count 3.14 k/cumm (1.2-6.7); HGB 9.5 g/dL (12.0-15.5); Immature Grans % 0.2; Lymphocytes % 14.4; Mean Corp. HGB Concentration 29.7 g/dL (32.0-36.0); Mean Corpuscular Hemoglobin 24.2 pg (27.0-33.0); Mean Corpuscular Volume 81.4 fL (80-95); Mean Platelet Volume 10.1 fL (8.0-11.0); Monocytes % 5.9; Neutrophils % 76.5; Platelet Count 190 x1000/uL (130-400); RBC 3.93 m/cumm (4.00-5.20); RBC Distribution Width 19.4 % (11.7-14.6)
[2019-07-01 13:32] LABS: ALT 20 U/L (14-59); AST 27 U/L (15-37); Albumin 3.7 g/dL (3.4-5.0); Alkaline Phosphatase 147 U/L (46-116); Anion Gap 8.5 mmol/L (3-11); BUN 15 mg/dL (7-18); Bilirubin, Total 0.5 mg/dL (0.2-1.0); CO2 26.5 mmol/L (21.0-32.0); CREATININE 0.75 mg/dL (0.55-1.02); Calcium 8.7 mg/dL (8.5-10.1); Chloride 106 mmol/L (98-107); Ferritin 26 ng/mL (8-252); Glucose 85 mg/dL (74-106); Potassium 3.9 mmol/L (3.5-5.1); Sodium 141 mmol/L (136-145); Total Protein 7.4 g/dL (6.4-8.2)
[2019-07-01 13:51] LABS: Iron 35 ug/dL (50-170); Total Iron Binding Capacity 398 ug/dL (250-450); Transferrin Sat 9 % (15-50)
[2019-08-14] MEDS: Normal Saline Flush 10 ML SYR IVP (13:36)
[2019-08-14] MEDS: IRON SUCROSE COMPLEX 300 MG in Normal Saline 250 ML 176.667 MG IVPB (13:36)
== END 2019-07-21 23:59 | disposition home or self-care (01) ==
LOC: INF 01:30
PROVIDERS: Internal Medicine Gastroenterology; PCP Family Medicine; Visit Provider Family Medicine
DX: K50.80 Crohn's disease of both small and large intestine without complications (principal); D50.9 Iron deficiency anemia, unspecified
CPT/HCPCS: 80053; 96365; 96366; 82728; 83540; 83550; 85025; J1756

== ENCOUNTER → 2019-08-10 13:18 | Outpatient (BNVA) | payer MEDICARE, OTHER, SELFPAY | PROVIDERS: PCP Family Medicine; Referring Provider Family Medicine; Visit Provider Nurse Practitioner Adult Health | DX: G43.909 Migraine, unspecified, not intractable, without status migrainosus (principal) | CPT/HCPCS: 99213 ==

== ENCOUNTER 2019-08-14 05:21 | Outpatient (RCR) | payer MEDICARE, OTHER, SELFPAY | END 2019-08-21 23:59 | disposition home or self-care (01) | LOC: INF 05:21 | PROVIDERS: PCP Family Medicine; Visit Provider Family Medicine | DX: K50.80 Crohn's disease of both small and large intestine without complications (principal); D50.9 Iron deficiency anemia, unspecified | CPT/HCPCS: 96365; 96366; J1756 ==

== ENCOUNTER 2019-11-13 03:32 | Outpatient (RCR) | payer MEDICARE, OTHER, SELFPAY ==
[2019-09-23] MEDS: IRON SUCROSE COMPLEX 300 MG in Normal Saline 250 ML 176.667 MG IVPB (13:12)
[2019-09-23] MEDS: Normal Saline Flush 10 ML SYR IVP (13:12)
[2019-09-23 13:26] LABS: Absolute Basophil Count 0.05 k/cumm (0.0-0.2); Absolute Eosinophil Count 0.06 k/cumm (0.0-0.7); Absolute Lymphocyte Count 0.59 k/cumm (1.2-3.4); Absolute Monocyte Count 0.22 k/cumm (0.11-0.7); Absolute Neutrophil Count 2.29 k/cumm (1.2-6.7); Basophils % 1.6; Eosinophils % 1.9; HCT 29.9 % (36.0-46.0); HGB 8.9 g/dL (12.0-15.5); Lymphocytes % 18.4; Mean Corp. HGB Concentration 29.8 g/dL (32.0-36.0); Mean Corpuscular Hemoglobin 24.9 pg (27.0-33.0); Mean Corpuscular Volume 83.8 fL (80-95); Mean Platelet Volume 10.8 fL (8.0-11.0); Monocytes % 6.9; Neutrophils % 71.2; Platelet Count 187 x1000/uL (130-400); RBC 3.57 m/cumm (4.00-5.20); RBC Distribution Width 16.5 % (11.7-14.6); White Blood Cell Count 3.21 k/cumm (4.4-10.8)
[2019-09-23 13:45] LABS: Anisocytosis 2+; Diff Comment RBC Morph Reviewed; Hypochromasia 2+; Microcytosis 1+; Polychromasia Present
[2019-09-23 14:02] LABS: ALT 20 U/L (14-59); AST 26 U/L (15-37); Albumin 3.7 g/dL (3.4-5.0); Alkaline Phosphatase 149 U/L (46-116); Anion Gap 7.6 mmol/L (3-11); BUN 14 mg/dL (7-18); Bilirubin, Total 0.6 mg/dL (0.2-1.0); CO2 28.4 mmol/L (21.0-32.0); Calcium 8.8 mg/dL (8.5-10.1); Chloride 106 mmol/L (98-107); Ferritin 22 ng/mL (8-252); Glucose 104 mg/dL (74-106); Sodium 142 mmol/L (136-145); Total Protein 7.2 g/dL (6.4-8.2)
[2019-09-23 14:24] LABS: Iron 25 ug/dL (50-170); Total Iron Binding Capacity 424 ug/dL (250-450); Transferrin Sat 6 % (15-50)
== END 2019-11-13 23:59 | disposition home or self-care (01) ==
LOC: INF 03:32
PROVIDERS: Internal Medicine Gastroenterology; PCP Family Medicine; Visit Provider Family Medicine
DX: K50.80 Crohn's disease of both small and large intestine without complications (principal); D50.9 Iron deficiency anemia, unspecified
CPT/HCPCS: 36415; 80053; 96365; 96366; 82728; 83540; 83550; 85025; J1756

== ENCOUNTER 2019-11-13 12:22 | Outpatient (RCR) | payer MEDICARE, OTHER, SELFPAY ==
[2019-11-13] MEDS: IRON SUCROSE COMPLEX 300 MG in Normal Saline 250 ML 176.667 MG IVPB (12:38)
[2019-11-13] MEDS: Normal Saline Flush 10 ML SYR IVP (12:41)
== END 2019-11-19 23:59 | disposition home or self-care (01) ==
LOC: INF 12:22
PROVIDERS: PCP Family Medicine; Visit Provider Family Medicine
DX: D50.0 Iron deficiency anemia secondary to blood loss (chronic) (principal)
CPT/HCPCS: 96365; 96366; J1756

== ENCOUNTER → 2019-12-21 12:26 | Outpatient (BNVA) | payer MEDICARE, OTHER, SELFPAY | PROVIDERS: PCP Family Medicine; Referring Provider Family Medicine; Visit Provider Nurse Practitioner Adult Health | DX: G31.84 Mild cognitive impairment of uncertain or unknown etiology (principal); G43.909 Migraine, unspecified, not intractable, without status migrainosus | CPT/HCPCS: 99213 ==

== ENCOUNTER 2019-12-25 04:54 | Outpatient (RCR) | payer MEDICARE, OTHER, SELFPAY ==
[2019-12-25 12:28] LABS: Absolute Basophil Count 0.03 k/cumm (0.0-0.2); Absolute Eosinophil Count 0.06 k/cumm (0.0-0.7); Absolute Lymphocyte Count 0.44 k/cumm (1.2-3.4); Absolute Monocyte Count 0.22 k/cumm (0.11-0.7); Absolute Neutrophil Count 2.26 k/cumm (1.2-6.7); HCT 27.7 % (36.0-46.0); HGB 7.9 g/dL (12.0-15.5); Lymphocytes % 14.6; Mean Corp. HGB Concentration 28.5 g/dL (32.0-36.0); Mean Corpuscular Hemoglobin 22.8 pg (27.0-33.0); Mean Corpuscular Volume 80.1 fL (80-95); Mean Platelet Volume 10.6 fL (8.0-11.0); Monocytes % 7.3; Neutrophils % 75.1; Platelet Count 163 x1000/uL (130-400); RBC 3.46 m/cumm (4.00-5.20); RBC Distribution Width 17.7 % (11.7-14.6); White Blood Cell Count 3.01 k/cumm (4.4-10.8)
[2019-12-25] MEDS: IRON SUCROSE COMPLEX 300 MG in Normal Saline 250 ML 176.667 MG IVPB (12:29)
[2019-12-25] MEDS: Normal Saline Flush 10 ML SYR IVP (12:29)
[2019-12-25 12:46] LABS: ALT 20 U/L (14-59); AST 26 U/L (15-37); Albumin 3.6 g/dL (3.4-5.0); Alkaline Phosphatase 123 U/L (46-116); BUN 13 mg/dL (7-18); Bilirubin, Total 0.6 mg/dL (0.2-1.0); CREATININE 0.76 mg/dL (0.55-1.02); Calcium 8.8 mg/dL (8.5-10.1); Chloride 108 mmol/L (98-107); Ferritin 18 ng/mL (8-252); Glucose 127 mg/dL (74-106); Potassium 3.9 mmol/L (3.5-5.1); Sodium 139 mmol/L (136-145); Total Protein 7.1 g/dL (6.4-8.2)
[2019-12-25 12:51] LABS: Iron 19 ug/dL (50-170); Total Iron Binding Capacity 409 ug/dL (250-450); Transferrin Sat 5 % (15-50)
[2019-12-25 12:57] LABS: Anisocytosis 1+; Diff Comment RBC Morph Reviewed; Hypochromasia 2+; Microcytosis 2+
== END 2020-01-19 23:59 | disposition home or self-care (01) ==
LOC: INF 04:54
PROVIDERS: Internal Medicine Gastroenterology; PCP Family Medicine; Visit Provider Family Medicine
DX: D50.0 Iron deficiency anemia secondary to blood loss (chronic) (principal); K50.80 Crohn's disease of both small and large intestine without complications
CPT/HCPCS: 36415; 80053; 96365; 96366; 82728; 83540; 83550; 85025; J1756

== ENCOUNTER 2020-02-19 03:57 | Outpatient (RCR) | payer MEDICARE, OTHER, SELFPAY ==
[2020-02-19] MEDS: Normal Saline Flush 10 ML SYR IVP (12:10)
[2020-02-19] MEDS: IRON SUCROSE COMPLEX 300 MG in Normal Saline 250 ML 176.667 MG IVPB (12:16)
[2020-02-19 12:20] LABS: Abs Immature Grans 0.01 10^3/uL (0.0-0.06); Absolute Basophil Count 0.03 10^3/uL (0.0-0.2); Absolute Eosinophil Count 0.08 10^3/uL (0.0-0.7); Absolute Lymphocyte Count 0.41 10^3/uL (1.2-3.4); Absolute Monocyte Count 0.25 10^3/uL (0.1-0.8); Absolute Neutrophil Count 2.76 10^3/uL (1.2-6.7); Basophils % 0.8; Eosinophils % 2.3; HCT 27.2 % (36.0-46.0); Immature Grans % 0.3; Lymphocytes % 11.6; MCH 23.2 pg (27.0-33.0); MCHC 29.4 % (32.0-36.0); MCV 78.8 fL (80-95); MPV 10.5 fL (8.0-11.0); Monocytes % 7.1; Neutrophils % 77.9; Platelet Count 138 10^3/uL (130-400); RBC 3.45 10^6/uL (3.93-5.22); RDW 18.6 % (11.7-14.6); RDW-SD 53.1 fL; WBC 3.54 10^3/uL (4.4-10.8)
[2020-02-19 12:25] LABS: ALT 16 U/L (14-59); AST 29 U/L (15-37); Albumin 3.6 g/dL (3.4-5.0); Alkaline Phosphatase 116 U/L (46-116); Anion Gap 9.7 mmol/L (3-11); BUN 13 mg/dL (7-18); Bilirubin, Total 0.6 mg/dL (0.2-1.0); CO2 26.3 mmol/L (21.0-32.0); CREATININE 0.74 mg/dL (0.55-1.02); Calcium 8.7 mg/dL (8.5-10.1); Chloride 106 mmol/L (98-107); Glucose 107 mg/dL (74-106); Potassium 3.5 mmol/L (3.5-5.1); Sodium 142 mmol/L (136-145); Total Protein 7.1 g/dL (6.4-8.2)
[2020-02-19 12:34] LABS: Diff Comment RBC Morph Reviewed
[2020-02-19 12:35] LABS: Anisocytosis 1+; Hypochromasia 1+; Microcytosis 1+
[2020-02-19 12:47] LABS: Iron 28 ug/dL (50-170); Total Iron Binding Capacity 408 ug/dL (250-450); Transferrin Sat 7 % (15-50)
== END 2020-02-19 23:59 | disposition home or self-care (01) ==
LOC: INF 03:57
PROVIDERS: Internal Medicine Gastroenterology; PCP Family Medicine; Visit Provider Family Medicine
DX: D50.0 Iron deficiency anemia secondary to blood loss (chronic) (principal)
CPT/HCPCS: 36415; 80053; 96365; 96366; 83540; 83550; 85025; J1756

== ENCOUNTER → 2020-03-10 12:29 | Outpatient (BNVA) | payer MEDICARE, OTHER, SELFPAY | PROVIDERS: PCP Family Medicine; Referring Provider Family Medicine; Visit Provider Nurse Practitioner Adult Health | DX: G43.909 Migraine, unspecified, not intractable, without status migrainosus (principal) | CPT/HCPCS: 64405; 99213 ==

== ENCOUNTER → 2020-03-24 11:29 | Outpatient (BNVA) | payer MEDICARE, OTHER, SELFPAY | PROVIDERS: PCP Family Medicine; Referring Provider Family Medicine; Visit Provider Nurse Practitioner Adult Health | DX: G43.909 Migraine, unspecified, not intractable, without status migrainosus (principal); J45.909 Unspecified asthma, uncomplicated; M54.2 Cervicalgia | CPT/HCPCS: 64405 ==

== ENCOUNTER 2020-04-01 12:00 | Outpatient (RCR) | payer MEDICARE, OTHER, SELFPAY ==
[2020-04-01 12:22] LABS: Absolute Basophil Count 0.03 10^3/uL (0.0-0.2); Absolute Eosinophil Count 0.08 10^3/uL (0.0-0.7); Absolute Lymphocyte Count 0.48 10^3/uL (1.2-3.4); Absolute Monocyte Count 0.24 10^3/uL (0.1-0.8); Absolute Neutrophil Count 2.23 10^3/uL (1.2-6.7); Eosinophils % 2.6; HCT 24.6 % (36.0-46.0); HGB 7.3 g/dL (11.2-15.7); Lymphocytes % 15.7; MCH 23.4 pg (27.0-33.0); MCHC 29.7 % (32.0-36.0); MCV 78.8 fL (80-95); MPV 10.8 fL (8.0-11.0); Monocytes % 7.8; Neutrophils % 72.9; Nucleated RBC 0 %; Platelet Count 146 10^3/uL (130-400); RBC 3.12 10^6/uL (3.93-5.22); RDW 18.4 % (11.7-14.6); RDW-SD 52.5 fL; WBC 3.06 10^3/uL (4.4-10.8)
[2020-04-01] MEDS: IRON SUCROSE COMPLEX 300 MG in Normal Saline 250 ML 176.667 MG IVPB (12:23)
[2020-04-01] MEDS: Normal Saline Flush 10 ML SYR IVP (12:25)
[2020-04-01 12:48] LABS: ALT 17 U/L (14-59); AST 21 U/L (15-37); Albumin 3.5 g/dL (3.4-5.0); Alkaline Phosphatase 104 U/L (46-116); BUN 13 mg/dL (7-18); Bilirubin, Total 0.6 mg/dL (0.2-1.0); CREATININE 0.77 mg/dL (0.55-1.02); Calcium 8.8 mg/dL (8.5-10.1); Chloride 106 mmol/L (98-107); Ferritin 13 ng/mL (8-252); Glucose 115 mg/dL (74-106); Potassium 3.7 mmol/L (3.5-5.1); Sodium 138 mmol/L (136-145); Total Protein 6.7 g/dL (6.4-8.2)
[2020-04-01 13:21] LABS: Iron 19 ug/dL (50-170); Total Iron Binding Capacity 385 ug/dL (250-450); Transferrin Sat 5 % (15-50)
== END 2020-04-20 23:59 | disposition home or self-care (01) ==
LOC: INF 12:00
PROVIDERS: PCP Family Medicine; Visit Provider Family Medicine
DX: K50.10 Crohn's disease of large intestine without complications (principal)
CPT/HCPCS: 36415; 80053; 96365; 82728; 83540; 83550; 85025; J1756

== ENCOUNTER → 2020-04-14 14:57 | Outpatient (BNVA) | payer MEDICARE, OTHER, SELFPAY | PROVIDERS: PCP Family Medicine; Referring Provider Family Medicine; Visit Provider Nurse Practitioner Adult Health | DX: R51 Headache (principal); G89.29 Other chronic pain | CPT/HCPCS: 64405 ==

== ENCOUNTER → 2020-04-28 14:58 | Outpatient (BNVA) | payer MEDICARE, OTHER, SELFPAY | PROVIDERS: PCP Family Medicine; Referring Provider Family Medicine; Visit Provider Nurse Practitioner Adult Health | DX: R51.9 Headache, unspecified | CPT/HCPCS: 64405 ==

== ENCOUNTER 2020-05-13 05:54 | Outpatient (RCR) | payer MEDICARE, OTHER, SELFPAY ==
[2020-05-13] MEDS: IRON SUCROSE COMPLEX 300 MG in Normal Saline 250 ML 176.667 MG IVPB (11:55)
[2020-05-13] MEDS: Normal Saline Flush 10 ML SYR IVP (11:56)
== END 2020-05-21 23:59 | disposition home or self-care (01) ==
LOC: INF 05:54
PROVIDERS: PCP Family Medicine; Visit Provider Family Medicine
DX: D50.9 Iron deficiency anemia, unspecified (principal)
CPT/HCPCS: 96365; 96366; J1756

== ENCOUNTER → 2020-05-17 12:24 | Outpatient (BNVA) | payer MEDICARE, OTHER, SELFPAY | PROVIDERS: PCP Family Medicine; Referring Provider Family Medicine; Visit Provider Nurse Practitioner Adult Health | DX: R51.9 Headache, unspecified (principal) | CPT/HCPCS: 64405 ==

== ENCOUNTER → 2020-06-02 13:59 | Outpatient (BNVA) | payer MEDICARE, OTHER, SELFPAY | PROVIDERS: PCP Family Medicine; Referring Provider Family Medicine; Visit Provider Nurse Practitioner Adult Health | DX: R51.9 Headache, unspecified (principal) | CPT/HCPCS: 64405 ==

== ENCOUNTER 2020-06-10 12:30 | Outpatient (RCR) | payer MEDICARE, OTHER, SELFPAY ==
[2020-06-10 13:03] LABS: Abs Immature Grans 0.01 10^3/uL (0.0-0.06); Absolute Basophil Count 0.04 10^3/uL (0.0-0.2); Absolute Eosinophil Count 0.08 10^3/uL (0.0-0.7); Absolute Monocyte Count 0.19 10^3/uL (0.1-0.8); Absolute Neutrophil Count 2.27 10^3/uL (1.2-6.7); Basophils % 1.3; Eosinophils % 2.6; HCT 29.2 % (36.0-46.0); HGB 8.5 g/dL (11.2-15.7); Immature Grans % 0.3; Lymphocytes % 16.2; MCH 23.7 pg (27.0-33.0); MCHC 29.1 % (32.0-36.0); MCV 81.3 fL (80-95); MPV 10.4 fL (8.0-11.0); Monocytes % 6.1; Neutrophils % 73.5; Nucleated RBC 0 %; Platelet Count 167 10^3/uL (130-400); RBC 3.59 10^6/uL (3.93-5.22); RDW 19.9 % (11.7-14.6); RDW-SD 59.1 fL; WBC 3.09 10^3/uL (4.4-10.8)
[2020-06-10] MEDS: Normal Saline Flush 10 ML SYR IVP (13:13)
[2020-06-10] MEDS: IRON SUCROSE COMPLEX 300 MG in Normal Saline 250 ML 176.667 MG IVPB (13:13)
[2020-06-10 13:17] LABS: Anisocytosis 2+; Diff Comment RBC Morph Reviewed; Hypochromasia 2+; Microcytosis 2+; Poikilocytes 1+; Polychromasia Present
[2020-06-10 13:24] LABS: Iron 29 ug/dL (50-170); Total Iron Binding Capacity 404 ug/dL (250-450); Transferrin Sat 7 % (15-50)
[2020-06-10 13:33] LABS: Ferritin 34 ng/mL (8-252)
== END 2020-06-20 23:59 | disposition home or self-care (01) ==
LOC: INF 12:30
PROVIDERS: Internal Medicine Gastroenterology; PCP Family Medicine; Visit Provider Family Medicine
DX: D50.9 Iron deficiency anemia, unspecified (principal)
CPT/HCPCS: 36415; 96365; 82728; 83540; 83550; 85025; J1756

== ENCOUNTER → 2020-06-23 15:13 | Outpatient (BNVA) | payer MEDICARE, OTHER, SELFPAY | PROVIDERS: PCP Family Medicine; Visit Provider Nurse Practitioner Adult Health | DX: R51.9 Headache, unspecified | CPT/HCPCS: 64405 ==

== ENCOUNTER 2020-07-08 04:35 | Outpatient (RCR) | payer MEDICARE, OTHER, SELFPAY ==
[2020-07-08] MEDS: Normal Saline Flush 10 ML SYR IVP (12:17)
[2020-07-08] MEDS: IRON SUCROSE COMPLEX 300 MG in Normal Saline 250 ML 176.667 MG IVPB (12:17)
== END 2020-07-21 23:59 | disposition home or self-care (01) ==
LOC: INF 04:35
PROVIDERS: PCP Family Medicine; Visit Provider Family Medicine
DX: D50.9 Iron deficiency anemia, unspecified (principal)
CPT/HCPCS: 96365; J1756

== ENCOUNTER → 2020-07-12 09:27 | Outpatient (BNVA) | payer MEDICARE, OTHER, SELFPAY | PROVIDERS: PCP Family Medicine; Referring Provider Family Medicine; Visit Provider Nurse Practitioner Adult Health | DX: R51.9 Headache, unspecified (principal) | CPT/HCPCS: 64405 ==

== ENCOUNTER → 2020-08-01 14:57 | Outpatient (BNVA) | payer MEDICARE, OTHER, SELFPAY | PROVIDERS: PCP Family Medicine; Referring Provider Family Medicine; Visit Provider Nurse Practitioner Adult Health | DX: G31.84 Mild cognitive impairment of uncertain or unknown etiology (principal); R51.9 Headache, unspecified; W19.XXXA Unspecified fall, initial encounter | CPT/HCPCS: 64405; 99213; 99215 ==

== ENCOUNTER 2020-08-04 12:00 | Outpatient (RCR) | payer MEDICARE, OTHER, SELFPAY ==
[2020-08-04] MEDS: Normal Saline Flush 10 ML SYR IVP (12:15)
[2020-08-04] MEDS: IRON SUCROSE COMPLEX 300 MG in Normal Saline 250 ML 176.667 MG IVPB (12:15)
[2020-08-04 12:25] LABS: Abs Immature Grans 0.01 10^3/uL (0.0-0.06); Absolute Basophil Count 0.04 10^3/uL (0.0-0.2); Absolute Eosinophil Count 0.08 10^3/uL (0.0-0.7); Absolute Lymphocyte Count 0.48 10^3/uL (1.2-3.4); Absolute Monocyte Count 0.19 10^3/uL (0.1-0.8); Absolute Neutrophil Count 2.68 10^3/uL (1.2-6.7); Basophils % 1.1; Eosinophils % 2.3; HCT 36.4 % (36.0-46.0); HGB 11.1 g/dL (11.2-15.7); Immature Grans % 0.3; Lymphocytes % 13.8; MCHC 30.5 % (32.0-36.0); MCV 85.2 fL (80-95); MPV 11.5 fL (8.0-11.0); Monocytes % 5.5; Nucleated RBC 0 %; Platelet Count 123 10^3/uL (130-400); RBC 4.27 10^6/uL (3.93-5.22); RDW 20.9 % (11.7-14.6); RDW-SD 65.3 fL; WBC 3.48 10^3/uL (4.4-10.8)
[2020-08-04 12:40] LABS: Iron 60 ug/dL (50-170); Total Iron Binding Capacity 354 ug/dL (250-450); Transferrin Sat 17 % (15-50)
[2020-08-04 12:55] LABS: Ferritin 76 ng/mL (8-252)
[2020-08-04 13:00] LABS: Diff Comment Diff Reviewed; RBC Morphology Normal
== END 2020-08-21 23:59 | disposition home or self-care (01) ==
LOC: INF 12:00
PROVIDERS: Internal Medicine Gastroenterology; PCP Family Medicine; Visit Provider Family Medicine
DX: D64.9 Anemia, unspecified (principal)
CPT/HCPCS: 36415; 96365; 82728; 83540; 83550; 85025; J1756

== ENCOUNTER 2020-08-17 07:04 | Emergency (ER) | payer MEDICARE, OTHER, SELFPAY ==
[2020-08-17 07:18] VITALS: BP 170/76; PULSE 62; RESP 18; TEMP 36.6; O2SAT 99
--- NOTE | 2020-08-17 07:28 | ED.GENADUL_ITS ---
Discharge Plan Disposition Patient Disposition: HOME Condition: Stable Discharge Details Clinical Impression: Knee pain, right Primary Care Provider: Hood Santiago ED Provider: Dileep Holder Home Meds and New Rx's Prescriptions: Continued propranolol 20 mg tablet 20 mg PO BID Qty: 180 RF: 3 aspirin 81 mg tablet 81 mg PO DAILY RF: 0 gabapentin 100 mg capsule 100 mg PO BID RF: 0 budesonide-formoterol [Symbicort] 80-4.5 mcg/actuation HFA aerosol inhaler 2 puff Inhalation BID Qty: 1 RF: 6 albuterol sulfate 90 mcg/actuation HFA aerosol inhaler 1 - 2 puff IH Q4H PRN (Reason: shortness of breath or wheezing) Qty: 18 RF: 3 ipratropium-albuterol 3 ML solution for nebulization 3 ml UPD Q6H PRNQty: 50 RF: 1 VENTOLIN HFA 60 PUFF Inh 2 puff IN PRN PRNRF: 0 (DME) Monoject Safety Syringes 3 mL 25 gauge x 5/8 syringe See Dose Instructions .ROUTE .MEDSUPPLY Qty: 100 RF: 12 balsalazide 750 mg capsule See Rx Instructions PO TID RF: 0 pantoprazole 40 mg tablet,delayed release (DR/EC) 40 mg PO BID Qty: 180 RF: 3 benzonatate [Tessalon Perles] 100 mg capsule 100 mg PO QID PRN (Reason: cough) Qty: 20 RF: 1 atorvastatin 20 mg tablet 20 mg PO DAILY Qty: 90 RF: 3 cyanocobalamin (vitamin B-12) 1,000 mcg/mL solution 1,000 mcg IM monthly Qty: 3 RF: 3 (DME) BD Blunt Plastic Cannula 17 x 3 mL syringe 1 ea Miscellaneous monthly Qty: 3 RF: 12 levothyroxine 50 mcg capsule 50 mcg PO DAILY Qty: 90 RF: 3 Venofer 200 mg iron/10 mL solution 300 mg IV Q4W RF: 0 escitalopram oxalate 20 mg tablet 20 mg PO DAILY 90 Days Qty: 90 RF: 3 escitalopram oxalate 5 mg tablet 5 mg PO DAILY MDD 25 mg Qty: 90 RF: 3 hyoscyamine sulfate 0.125 mg tablet, sublingual 0.125 mg PO TID PRNRF: 0 Discharge Instructions Instructions: Knee Pain (ED) Additional Instructions: At this time your x-ray shows notable arthritis and calcifications in your ninfa int. I suspect that this is the cause of your symptoms. I would decrease on your current exercises for your right leg. Apply the Voltaren gel 3-4 times per day, wrap the joint in the Jt wrap to give it support, ice it as often as possible throughout the day to decrease on the pain, and use your walker for the next week for aided support. If your symptoms do not improve with this treatment then you will need to follow-up with an employee training specialist. Please contact your family doctor today or tomorrow to set up a follow-up appointment in 1 week for reassessment. If you notice any worsening of your symptoms, or any new symptoms such as vomiting, diarrhea, fever, chills, shortness of breath, chest pain, numbness, weakness, or fainting , or the redness in your knee, worsening swelling, calf pain, please return immediately to the emergency department for reevaluation. Please follow up with your primary care provider as soon as possible for reassessment and reevaluation. As always, it was a pleasure participating in your medical care today. Referrals: Hood Santiago DO [Primary Care Provider] - Medical Decision Making <Vega Rodriguez MD - Last Filed: 08/17/20 07:36> 80 yo female with hx of crohn's, asthma, left foot drop, who comes in with right knee pain since yesterday. Denies any falls or trauma but did start an exercise program with physical therapy 2 weeks ago which is new for her. She dneies any fevers, chills, warmth of the knee. She localizes the pain along the medial and lateral joint lines. She can full range the knee though with pain. HAs no tenderness to the hip or lower leg distal to the knee and no leg swelling or calf pain with intact sensation and pulses. Suspect this is a sprain vs overuse from the new exercise program. No erythema, warmth or other findings on history or physical to suggest septic joint and knee is not swollen, no findings to suggest dvt as well. Will obtain xray to evaluate for arthiritis and less likely fracture Pt will be signed out to oncoming provider pending radiology report and may need to see care management for assistance at home Differential Diagnosis Differential Diagnosis: sprain, strain overuse <Dileep Holder DO - Last Filed: 08/17/20 09:09> Patient was signed out to me by my colleague Dr. Vega Rodriguez. Please refer to his HPI, physical exam, assessment and plan. 80-year-old female who presents with right knee pain started suddenly last night. She is doing a notable amount of increased exercises of the right leg recently. She denies any falls or trauma. Pain is present with movement, there is no crepitus, redness, or warmth on exam. No calf tenderness. She does have a history of a DVT in the distant past after she took a long flight from [place] however she denies any long trips, surgeries or procedures or precipitating events for clot today. Physical exam appears inconsistent with septic arthritis, DVT, or significant trauma. X-rays negative for acute process but does show notable costochondritis, and arthritis in the knee. Ligamentous exam demonstrates an otherwise stable knee. Signs and symptoms at this time are consistent with arthritis and worsening costochondritis/joint irritation. The patient has Crohn's, so we will avoid oral NSAIDs and give Voltaren gel, recommend Jt wrap, walker use, and close follow-up and reassessment in a week. If she does not have improvement she will likely need to be evaluated by an employee training specialist. I contacted her son Bryan Burciaga all and discussed the case with him. I have extensively reviewed the treatment plan and discharge instructions with the patient and their family. I have addressed all patient concerns at this time. The patient and family was made aware of what symptoms to monitor for that would warrant a return to the em ergency department. Discussed the plan with the patient and family, they demonstrate verbal understanding and agreement with our assessment and plan at this time. FINDINGS: BONES: No acute fracture is present. No bony destructive lesion is seen. JOINTS: The knee is normally aligned. No joint effusion is seen. There is mild narrowing of the lateral femoral tibial joint space. Chondrocalcinosis is seen. SOFT TISSUE: Normal. IMPRESSION: Degenerative changes and chondrocalcinosis. No acute abnormality. HPI <Vega Rodriguez MD - Last Filed: 08/17/20 07:36> General Date/Time Provider Initiated Documentation: 08/17/20 07:14 . Limitations to Documentation: no limitations . Information obtained by: patient . History of Present Illness 80 year old F presents to the emergency department with the chief complaint of right knee pain, described as moderate, Patient started experiencing this day(s) (1) and it has been constant. Rest improves symptom(s), Movement worsens symp toms . Patient notes no other symptoms.. Patient did receive the following treatments prior to arrival, other (gabapentin) Related Data Home Medications Medication Instructions Recorded Confirmed ipratropium-albuterol 3 ml UPD Q6H PRN #50 vial 10/01/17 08/17/20 syringe with needle, safety 3 mL #100 each 03/25/18 08/17/20 25 gauge x 5/8 aspirin 81 mg tablet 81 mg PO DAILY 09/24/18 08/17/20 balsalazide 750 mg capsule See Rx Instructions PO TID cap 05/14/19 08/17/20 benzonatate 100 mg capsule 100 mg PO QID PRN #20 cap 10/02/19 08/17/20 pantoprazole 40 mg tablet,delayed 40 mg PO BID #180 tab 10/02/19 08/17/20 release atorvastatin 20 mg tablet 20 mg PO DAILY #90 tab 10/19/19 08/17/20 cyanocobalamin (vitamin B-12) 1,000 mcg IM monthly #3 vial 10/19/19 08/17/20 1,000 mcg/mL injection solution syringe with cannula,disposabl 17 #3 syringe 10/19/19 08/17/20 x 3 mL propranolol 20 mg tablet 20 mg PO BID #180 tab 12/22/19 08/17/20 gabapentin 100 mg capsule 100 mg PO BID cap 03/10/20 08/17/20 levothyroxine 50 mcg capsule 50 mcg PO DAILY #90 cap 05/12/20 08/17/20 iron sucrose 200 mg iron/10 mL 300 mg IV Q4W ml 06/01/20 08/17/20 intravenous solution escitalopram oxalate 20 mg tablet 20 mg PO DAILY 90 Days #90 tab 06/17/20 08/17/20 escitalopram oxalate 5 mg tablet 5 mg PO DAILY #90 tab MDD 25 mg 06/17/20 08/17/20 albuterol sulfate 90 mcg/actuation 1 - 2 puff IH Q4H PRN #18 g 06/30/20 08/17/20 aerosol inhaler budesonide-formoterol HFA 80 2 puff INHALATION BID #1 inh 06/30/20 08/17/20 mcg-4.5 mcg/actuation aerosol inhaler hyoscyamine sulfate 0.125 mg 0.125 mg PO TID PRN tab 07/07/20 08/17/20 sublingual tablet Previous Rx's Medication Instructions Recorded syringe with needle, safety 3 mL #100 each 03/25/18 25 gauge x 5/8 benzonatate 100 mg capsule 100 mg PO QID PRN #20 cap 10/02/19 pantoprazole 40 mg tablet,delayed 40 mg PO BID #180 tab 10/02/19 release atorvastatin 20 mg tablet 20 mg PO DAILY #90 tab 10/19/19 cyanocobalamin (vitamin B-12) 1,000 mcg IM monthly #3 vial 10/19/19 1,000 mcg/mL injection solution syringe with cannula,disposabl 17 #3 syringe 10/19/19 x 3 mL propranolol 20 mg tablet 20 mg PO BID #180 tab 12/22/19 levothyroxine 50 mcg capsule 50 mcg PO DAILY #90 cap 05/12/20 escitalopram oxalate 20 mg tablet 20 mg PO DAILY 90 Days #90 tab 06/17/20 escitalopram oxalate 5 mg tablet 5 mg PO DAILY #90 tab MDD 25 mg 06/17/20 albuterol sulfate 90 mcg/actuation 1 - 2 puff IH Q4H PRN #18 g 06/30/20 aerosol inhaler budesonide-formoterol HFA 80 2 puff INHALATION BID #1 inh 06/30/20 mcg-4.5 mcg/actuation aerosol inhaler Allergies Allergy/AdvReac Type Severity Reaction Status Date / Time acetaminophen AdvReac Intermediate Headache Verified 08/17/20 07:24 ibuprofen AdvReac Intermediate Headache Verified 08/17/20 07:24 lactose intolerant AdvReac Intermediate cramps, Uncoded 08/17/20 07:24 diarrhea General Stated Complaint: Orthopedic ADALGISA: 3 Review of Systems <Vega Rodriguez MD - Last Filed: 08/17/20 07:36> All systems reviewed & are unremarkable except as noted in HPI and below Constitutional Constitutional: Denies chills, Denies fever(s) and Denies weakness Cardiovascular Cardiovascular: Denies chest pain and Denies dyspnea Respiratory Respiratory: Denies cough and Denies dyspnea Gastrointestinal Gastrointestinal: Denies abdominal pain, Denies nausea and Denies vomiting Musculoskeletal Musculoskeletal: Denies joint swelling Neurologic Neurologic: Denies weakness PFSH <Vega Rodriguez MD - Last Filed: 08/17/20 07:36> Medical History Anxiety (09/04/17) Asthma Astigmatism of both eyes [facility] report dated 04/17/18. Brent Castaneda, OD B12 deficiency (09/04/17) Chronic anemia (09/04/17) Crohn's disease with complication (09/04/17) Dementia Depression (09/12/17) Early stage nonexudative age-related macular degeneration [facility] report dated 04/17/18. Brent Castaneda, OD (per report: Advised that daily use of AREDS2 supplements may slow the progression of AMD. Consult w/ PCP before starting.) Fall Fatigue (09/04/17) Foot drop, left Grade 1 hypertensive retinopathy [facility] report dated 04/17/18. Brent Castaneda, OD Hypomagnesemia Hypothyroidism (09/04/17) Migraines (09/04/17) Mild cognitive impairment Neck pain (09/04/17) Osteoporosis (03/27/16) Surgical History H/O colonoscopy (04/07/18) [facility] [place] Hiatal Hernia repair (09/11/17) Hysterectomy, Laproscopic Repair of umbilical hernia (09/11/17) Social History Smoking/Tobacco Use Status: Never Smoking risk assessment performed?: Yes Alcohol Intake: never Substance use type: does not use Household members: children Housing: apartment Number of Children: 3 Current gender identity: female What is your relationship status?: Panel score (0-1 are the most socially isolated patients): 0 What type of physical activity do you participate in: none Seatbelt use: always Water heater temp set <120 deg: Yes Working smoke detector in home: Yes Fire extinguisher in home: Yes Carbon monox detector in home: Yes Firearms in home: No Do you feel safe at home: Yes Do you feel safe in your relationship?: Yes History History Para 3 Hx # Term Pregnancies Multiple births Hx # Pregnancies Ectopic pregnancies AB induced Hx Number of Living Children AB spontaneous Exam <Vega Rodriguez MD - Last Filed: 08/17/20 07:36> Const General: no acute distress Orientation: alert HENMT Head: normal to inspection Ears: external ears normal General nose exam: external nose normal Mouth: moist mucous membranes Eyes General: appearance normal, both eyes and all related structures Neck Neck: normal visual inspection Resp Effort & Inspection: normal respiratory effort and able to speak in complete se ntences Cardio Rate: regular rate Skin General skin exam: no rashes or lesions noted Neuro General: patient alert and patient oriented x3 Extrem General: normal to inspection Psych Mental Status: mental status grossly normal Course <Vega Rodriguez MD - Last Filed: 08/17/20 07:36> Vital Signs Vital signs: Vital Signs Temperature 36.6 C 08/17/20 07:18 Pulse 62 08/17/20 07:18 Respiratory Rate 18 08/17/20 07:18 Blood Pressure 170/76 H 08/17/20 07:18 Pulse Oximetry 99 08/17/20 07:18 Temperature 36.6 C 08/17/20 07:18 Temperature Source Temporal Artery Scan 08/17/20 07:18 Pulse 62 08/17/20 07:18 Respiratory Rate 18 08/17/20 07:18 Respiratory Effort Non-Labored 08/17/20 07:23 Blood Pressure 170/76 H 08/17/20 07:18 Blood Pressure Position Supine 08/17/20 07:18 Pulse Oximetry 99 08/17/20 07:18 Oxygen Delivery Method Room Air 08/17/20 07:18 Oxygen Flow Rate 0 08/17/20 07:18 Pain Level 9 08/17/20 07:24 Sign Out <Vega Rodriguez MD - Last Filed: 08/17/20 07:36> Sign Out Data: Sign Out Comment: started Pt program 2 weeks ago and started to have pain in right knee, pending xray results and may need to see care management. Last updated by Vega Rodriguez MD at 08/17/20 07:37
--- NOTE | 2020-08-17 07:55 | DI.RAD_ITS ---
EXAM: XR KNEE RT 3V AP,LAT,EVELYN CLINICAL HISTORY: pain in knee. TECHNIQUE: 2D digital imaging was performed. COMPARISON: No exams were available for comparison FINDINGS: BONES: No acute fracture is present. No bony destructive lesion is seen. JOINTS: The knee is normally aligned. No joint effusion is seen. There is mild narrowing of the later al femoral tibial joint space. Chondrocalcinosis is seen. SOFT TISSUE: Normal. IMPRESSION: Degenerative changes and chondrocalcinosis. No acute abnormality. DATA REPOSITORY: RADIATION DOSE DELIVERED:
[2020-08-17] MEDS: Diclofenac 1% Gel 100 GM TUBE TP (09:05)
== END 2020-08-17 09:29 | disposition home or self-care (01) ==
PROVIDERS: Emergency Provider Student in an Organized Health Care Education/Training Program; PCP Family Medicine
DX: M17.11 Unilateral primary osteoarthritis, right knee (principal)
CPT/HCPCS: 73562; 99283

== ENCOUNTER 2020-09-01 02:18 | Outpatient (RCR) | payer MEDICARE, OTHER, SELFPAY ==
[2020-09-01] MEDS: Normal Saline Flush 10 ML SYR IVP (12:19)
[2020-09-01] MEDS: IRON SUCROSE COMPLEX 300 MG in Normal Saline 250 ML 176.667 MG IVPB (12:19)
== END 2020-09-18 23:59 | disposition home or self-care (01) ==
LOC: INF 02:18
PROVIDERS: PCP Family Medicine; Visit Provider Family Medicine
DX: D50.9 Iron deficiency anemia, unspecified (principal)
CPT/HCPCS: 96365; J1756

== ENCOUNTER → 2020-09-07 14:32 | Outpatient (BNVA) | payer MEDICARE, OTHER, SELFPAY | PROVIDERS: PCP Family Medicine; Referring Provider Family Medicine; Visit Provider Nurse Practitioner Adult Health | DX: G44.209 Tension-type headache, unspecified, not intractable (principal) | CPT/HCPCS: 64405 ==

== ENCOUNTER → 2020-09-28 13:38 | Outpatient (BNVA) | payer MEDICARE, OTHER, SELFPAY | PROVIDERS: PCP Family Medicine; Referring Provider Family Medicine; Visit Provider Nurse Practitioner Adult Health | DX: R51.9 Headache, unspecified (principal) | CPT/HCPCS: 64405; 99212 ==

== ENCOUNTER 2020-09-30 04:43 | Outpatient (RCR) | payer MEDICARE, OTHER, SELFPAY ==
[2020-09-30] MEDS: Normal Saline Flush 10 ML SYR IVP (11:51)
[2020-09-30] MEDS: IRON SUCROSE COMPLEX 300 MG in Normal Saline 250 ML 176.667 MG IVPB (11:52)
[2020-09-30 11:53] LABS: Abs Immature Grans 0.01 10^3/uL (0.0-0.06); Absolute Basophil Count 0.05 10^3/uL (0.0-0.2); Absolute Eosinophil Count 0.07 10^3/uL (0.0-0.7); Absolute Lymphocyte Count 0.58 10^3/uL (1.2-3.4); Absolute Monocyte Count 0.28 10^3/uL (0.1-0.8); Absolute Neutrophil Count 2.99 10^3/uL (1.2-6.7); Basophils % 1.3; Eosinophils % 1.8; HCT 37.9 % (36.0-46.0); HGB 12.1 g/dL (11.2-15.7); Immature Grans % 0.3; Lymphocytes % 14.6; MCH 28.9 pg (27.0-33.0); MCHC 31.9 % (32.0-36.0); MCV 90.5 fL (80-95); MPV 10.7 fL (8.0-11.0); Nucleated RBC 0 %; Platelet Count 120 10^3/uL (130-400); RBC 4.19 10^6/uL (3.93-5.22); RDW-SD 56.7 fL; WBC 3.98 10^3/uL (4.4-10.8)
[2020-09-30 12:19] LABS: Ferritin 199 ng/mL (8-252)
[2020-09-30 12:31] LABS: Iron 88 ug/dL (50-170); Total Iron Binding Capacity 292 ug/dL (250-450); Transferrin Sat 30 % (15-50)
== END 2020-10-19 23:59 | disposition home or self-care (01) ==
LOC: INF 04:43
PROVIDERS: Internal Medicine Gastroenterology; PCP Family Medicine; Visit Provider Family Medicine
DX: D64.9 Anemia, unspecified (principal)
CPT/HCPCS: 36415; 96365; 96366; 82728; 83540; 83550; 85025; J1756

== ENCOUNTER → 2020-10-19 14:55 | Outpatient (BNVA) | payer MEDICARE, OTHER, SELFPAY | PROVIDERS: PCP Family Medicine; Referring Provider Family Medicine; Visit Provider Nurse Practitioner Adult Health | DX: G31.84 Mild cognitive impairment of uncertain or unknown etiology (principal); G44.209 Tension-type headache, unspecified, not intractable | CPT/HCPCS: 64405 ==

== ENCOUNTER 2020-11-09 08:56 | Outpatient (REF) | payer MEDICARE, OTHER, SELFPAY | END 2020-11-09 08:57 | disposition home or self-care (01) | LOC: LBN 08:56 | PROVIDERS: PCP Family Medicine; Referring Provider Family Medicine; Visit Provider Family Medicine | DX: L02.211 Cutaneous abscess of abdominal wall (principal) | CPT/HCPCS: 87070; 87205 ==

== ENCOUNTER 2020-11-10 12:00 | Outpatient (RCR) | payer MEDICARE, OTHER, SELFPAY ==
[2020-11-10] MEDS: Normal Saline Flush 10 ML SYR IVP (12:08)
[2020-11-10] MEDS: ceFAZolin 1 GM/50 ML BAG IVPB (12:08)
[2020-11-10] MEDS: IRON SUCROSE COMPLEX 300 MG in Normal Saline 250 ML 176.667 MG IVPB (12:26)
== END 2020-11-18 23:59 | disposition home or self-care (01) ==
LOC: INF 12:00
PROVIDERS: PCP Internal Medicine; Visit Provider Family Medicine
DX: L03.311 Cellulitis of abdominal wall (principal); D50.9 Iron deficiency anemia, unspecified
CPT/HCPCS: 96365; 96366; J0690; J1756

== ENCOUNTER → 2020-11-14 14:52 | Outpatient (BNVA) | payer MEDICARE, OTHER, SELFPAY | PROVIDERS: PCP Internal Medicine; Referring Provider Family Medicine; Visit Provider Nurse Practitioner Adult Health | DX: R51.9 Headache, unspecified (principal) | CPT/HCPCS: 64405 ==

== ENCOUNTER → 2020-12-12 14:35 | Outpatient (BNVA) | payer MEDICARE, OTHER, SELFPAY | PROVIDERS: PCP Internal Medicine; Referring Provider Family Medicine; Visit Provider Nurse Practitioner Adult Health | DX: G31.84 Mild cognitive impairment of uncertain or unknown etiology; G44.1 Vascular headache, not elsewhere classified | CPT/HCPCS: 64405; 99214; 99215 ==

== ENCOUNTER 2020-12-13 10:00 | Outpatient (RCR) | payer MEDICARE, OTHER, SELFPAY ==
[2020-12-13] MEDS: IRON SUCROSE COMPLEX 300 MG in Normal Saline 250 ML 176.667 MG IVPB (10:13)
[2020-12-13] MEDS: Normal Saline Flush 10 ML SYR IVP (10:13)
[2020-12-13 10:20] LABS: HCT 40.5 % (36.0-46.0); HGB 12.8 g/dL (11.2-15.7); MCH 30.3 pg (27.0-33.0); MCHC 31.6 % (32.0-36.0); MCV 95.7 fL (80-95); Platelet Count 105 10^3/uL (130-400); RBC 4.23 10^6/uL (3.93-5.22); RDW 14.6 % (11.7-14.6); RDW-SD 51.4 fL; WBC 3.02 10^3/uL (4.4-10.8)
[2020-12-13 10:43] LABS: Ferritin 428 ng/mL (8-252)
[2020-12-13 12:18] LABS: Iron 120 ug/dL (50-170); Total Iron Binding Capacity 270 ug/dL (250-450); Transferrin Sat 44 % (15-50)
== END 2020-12-19 23:59 | disposition home or self-care (01) ==
LOC: INF 10:00
PROVIDERS: PCP Internal Medicine; Visit Provider Family Medicine
DX: D64.89 Other specified anemias (principal)
CPT/HCPCS: 36415; 85027; 96365; 96366; 82728; 83540; 83550; J1756

== ENCOUNTER 2021-01-11 01:49 | Outpatient (RCR) | payer MEDICARE, OTHER, SELFPAY ==
[2021-01-11] MEDS: Normal Saline Flush 10 ML SYR IVP (11:53)
[2021-01-11] MEDS: IRON SUCROSE COMPLEX 300 MG in Normal Saline 250 ML 176.667 MG IVPB (12:09)
== END 2021-01-18 23:59 | disposition home or self-care (01) ==
LOC: INF 01:49
PROVIDERS: PCP Internal Medicine; Visit Provider Family Medicine
DX: D50.9 Iron deficiency anemia, unspecified (principal)
CPT/HCPCS: 96365; J1756

== ENCOUNTER → 2021-01-16 10:50 | Outpatient (BNVA) | payer MEDICARE, OTHER, SELFPAY | PROVIDERS: PCP Internal Medicine; Referring Provider Internal Medicine; Visit Provider Nurse Practitioner Adult Health | DX: R51.9 Headache, unspecified (principal) | CPT/HCPCS: 64405 ==

== ENCOUNTER 2021-02-08 02:41 | Outpatient (RCR) | payer MEDICARE, OTHER, SELFPAY ==
[2021-02-08] MEDS: Normal Saline Flush 10 ML SYR IVP (12:06)
[2021-02-08] MEDS: IRON SUCROSE COMPLEX 300 MG in Normal Saline 250 ML 176.667 MG IVPB (12:06)
[2021-02-08 12:18] LABS: HCT 39.6 % (36.0-46.0); HGB 12.8 g/dL (11.2-15.7); MCH 31.5 pg (27.0-33.0); MCHC 32.3 % (32.0-36.0); MCV 97.5 fL (80-95); MPV 11.6 fL (8.0-11.0); Platelet Count 108 10^3/uL (130-400); RBC 4.06 10^6/uL (3.93-5.22); RDW 13.9 % (11.7-14.6); WBC 3.85 10^3/uL (4.4-10.8)
[2021-02-08 12:31] LABS: Iron 114 ug/dL (50-170); Total Iron Binding Capacity 271 ug/dL (250-450); Transferrin Sat 42 % (15-50)
[2021-02-08 12:40] LABS: Ferritin 655 ng/mL (8-252)
== END 2021-02-18 23:59 | disposition home or self-care (01) ==
LOC: INF 02:41
PROVIDERS: PCP Internal Medicine; Visit Provider Family Medicine
DX: K50.00 Crohn's disease of small intestine without complications (principal)
CPT/HCPCS: 36415; 85027; 96365; 96366; 82728; 83540; 83550; J1756

== ENCOUNTER → 2021-02-13 14:23 | Outpatient (BNVA) | payer MEDICARE, OTHER, SELFPAY | PROVIDERS: PCP Internal Medicine; Visit Provider Nurse Practitioner Adult Health | DX: J45.909 Unspecified asthma, uncomplicated; G44.1 Vascular headache, not elsewhere classified | CPT/HCPCS: 64405; 99213 ==

== ENCOUNTER 2021-03-06 13:04 | Outpatient (REF) | payer MEDICARE, OTHER, SELFPAY ==
[2021-03-08 18:17] LABS: COVID-19 RT-PCR Result Not Detected ((See Note))
== END 2021-03-06 13:05 | disposition home or self-care (01) ==
LOC: LBN 13:04
PROVIDERS: PCP Internal Medicine; Visit Provider Nurse Practitioner Family
DX: J06.9 Acute upper respiratory infection, unspecified (principal); Z20.822 Contact with and (suspected) exposure to COVID-19
CPT/HCPCS: U0003

== ENCOUNTER 2021-03-08 01:35 | Outpatient (RCR) | payer MEDICARE, OTHER, SELFPAY ==
[2021-03-08] MEDS: Normal Saline Flush 10 ML SYR IVP (12:08)
[2021-03-08] MEDS: IRON SUCROSE COMPLEX 300 MG in Normal Saline 250 ML 176.667 MG IVPB (12:08)
== END 2021-03-21 23:59 | disposition home or self-care (01) ==
LOC: INF 01:35
PROVIDERS: PCP Internal Medicine; Visit Provider Family Medicine
DX: D50.9 Iron deficiency anemia, unspecified (principal)
CPT/HCPCS: 96365; 96366; J1756

== ENCOUNTER → 2021-03-21 13:36 | Outpatient (BNVA) | payer MEDICARE, OTHER, SELFPAY | PROVIDERS: PCP Internal Medicine; Referring Provider Internal Medicine; Visit Provider Nurse Practitioner Adult Health | DX: R51.9 Headache, unspecified (principal) | CPT/HCPCS: 64405 ==

== ENCOUNTER 2021-04-06 12:15 | Outpatient (RCR) | payer MEDICARE, OTHER, SELFPAY ==
[2021-04-06] MEDS: Normal Saline Flush 10 ML SYR IVP (12:06)
[2021-04-06] MEDS: IRON SUCROSE COMPLEX 300 MG in Normal Saline 250 ML 176.667 MG IVPB (12:07)
[2021-04-06 12:22] LABS: HCT 38.1 % (36.0-46.0); HGB 12.4 g/dL (11.2-15.7); MCHC 32.5 % (32.0-36.0); MCV 98.4 fL (80-95); MPV 11.5 fL (8.0-11.0); Platelet Count 115 10^3/uL (130-400); RBC 3.87 10^6/uL (3.93-5.22); RDW-SD 50.9 fL; WBC 4.54 10^3/uL (4.4-10.8)
[2021-04-06 12:49] LABS: Ferritin 867 ng/mL (8-252); Iron 108 ug/dL (50-170); Total Iron Binding Capacity 230 ug/dL (250-450); Transferrin Sat 47 % (15-50)
== END 2021-04-20 23:59 | disposition home or self-care (01) ==
LOC: INF 12:15
PROVIDERS: Internal Medicine Gastroenterology; PCP Internal Medicine; Visit Provider Family Medicine
DX: K50.00 Crohn's disease of small intestine without complications (principal)
CPT/HCPCS: 36415; 85027; 96365; 96366; 82728; 83540; 83550; J1756

== ENCOUNTER → 2021-04-20 14:54 | Outpatient (BNVA) | payer MEDICARE, OTHER, SELFPAY | PROVIDERS: PCP Internal Medicine; Visit Provider Nurse Practitioner Adult Health | DX: R51.9 Headache, unspecified (principal) | CPT/HCPCS: 64405 ==

== ENCOUNTER 2021-05-17 12:00 | Outpatient (RCR) | payer MEDICARE, OTHER, SELFPAY ==
[2021-05-17] MEDS: Normal Saline Flush 10 ML SYR IVP (12:10)
[2021-05-17] MEDS: IRON SUCROSE COMPLEX 300 MG in Normal Saline 250 ML 176.667 MG IVPB (12:14)
[2021-05-17 12:41] LABS: TSH (W/Ref FT4) 0.66 uIU/mL (0.36-3.74)
== END 2021-05-21 23:59 | disposition home or self-care (01) ==
LOC: INF 12:00
PROVIDERS: PCP Internal Medicine; Visit Provider Family Medicine
DX: E03.9 Hypothyroidism, unspecified (principal); K50.00 Crohn's disease of small intestine without complications
CPT/HCPCS: 36415; 96365; 96366; 84443; J1756

== ENCOUNTER → 2021-05-22 14:52 | Outpatient (BNVA) | payer MEDICARE, OTHER, SELFPAY | PROVIDERS: PCP Internal Medicine; Referring Provider Internal Medicine; Visit Provider Psychiatry & Neurology Neurology | DX: R51.9 Headache, unspecified (principal) | CPT/HCPCS: 64405 ==

== ENCOUNTER → 2021-06-19 14:39 | Outpatient (BNVA) | payer MEDICARE, OTHER, SELFPAY | PROVIDERS: PCP Internal Medicine; Referring Provider Internal Medicine; Visit Provider Psychiatry & Neurology Neurology | DX: R51.9 Headache, unspecified (principal) | CPT/HCPCS: 64405 ==

== ENCOUNTER 2021-06-28 12:00 | Outpatient (RCR) | payer MEDICARE, OTHER, SELFPAY ==
[2021-06-28] MEDS: Normal Saline Flush 10 ML SYR IVP (12:11)
[2021-06-28] MEDS: IRON SUCROSE COMPLEX 300 MG in Normal Saline 250 ML 176.667 MG IVPB (12:11)
[2021-06-28 12:23] LABS: HCT 44.5 % (36.0-46.0); HGB 14.3 g/dL (11.2-15.7); MCH 32.2 pg (27.0-33.0); MCHC 32.1 % (32.0-36.0); MCV 100.2 fL (80-95); Platelet Count 118 10^3/uL (130-400); RBC 4.44 10^6/uL (3.93-5.22); RDW 13.5 % (11.7-14.6); RDW-SD 50.4 fL; WBC 4.21 10^3/uL (4.4-10.8)
[2021-06-28 12:57] LABS: Iron 159 ug/dL (50-170); Total Iron Binding Capacity 232 ug/dL (250-450); Transferrin Sat 69 % (15-50)
[2021-06-28 13:18] LABS: Ferritin 1728 ng/mL (8-252)
== END 2021-07-21 23:59 | disposition home or self-care (01) ==
LOC: INF 12:00
PROVIDERS: PCP Internal Medicine; Visit Provider Family Medicine
DX: K50.00 Crohn's disease of small intestine without complications (principal)
CPT/HCPCS: 36415; 85027; 96365; 96366; 82728; 83540; 83550; J1756

== ENCOUNTER → 2021-07-10 14:33 | Outpatient (BNVA) | payer MEDICARE, OTHER, SELFPAY | PROVIDERS: PCP Internal Medicine; Visit Provider Psychiatry & Neurology Neurology | DX: R51.9 Headache, unspecified (principal) | CPT/HCPCS: 64405 ==

== ENCOUNTER → 2021-08-14 14:19 | Outpatient (BNVA) | payer MEDICARE, OTHER, SELFPAY | PROVIDERS: PCP Internal Medicine; Referring Provider Internal Medicine; Visit Provider Nurse Practitioner Adult Health | DX: R51.9 Headache, unspecified (principal); G31.84 Mild cognitive impairment of uncertain or unknown etiology | CPT/HCPCS: 64405; 99213 ==

== ENCOUNTER → 2021-09-06 14:43 | Outpatient (BNVA) | payer MEDICARE, OTHER, SELFPAY | PROVIDERS: PCP Internal Medicine; Referring Provider Internal Medicine; Visit Provider Nurse Practitioner Adult Health | DX: R51.9 Headache, unspecified (principal); G31.84 Mild cognitive impairment of uncertain or unknown etiology | CPT/HCPCS: 64405 ==

== ENCOUNTER 2021-09-27 01:36 | Outpatient (RCR) | payer MEDICARE, OTHER, SELFPAY ==
[2021-09-27] MEDS: Normal Saline Flush 10 ML SYR IVP (12:32)
[2021-09-27] MEDS: IRON SUCROSE COMPLEX 300 MG in Normal Saline 250 ML 176.667 MG IVPB (12:32)
== END 2021-10-19 23:59 | disposition home or self-care (01) ==
LOC: INF 01:36
PROVIDERS: PCP Internal Medicine; Visit Provider Family Medicine
DX: D50.9 Iron deficiency anemia, unspecified (principal)
CPT/HCPCS: 96365; 96366; J1756

== ENCOUNTER → 2021-10-04 14:59 | Outpatient (BNVA) | payer MEDICARE, OTHER, SELFPAY | PROVIDERS: PCP Internal Medicine; Referring Provider Internal Medicine; Visit Provider Nurse Practitioner Adult Health | DX: R51.9 Headache, unspecified (principal) | CPT/HCPCS: 64405 ==

== ENCOUNTER → 2021-11-01 08:56 | Outpatient (BNVA) | payer MEDICARE, OTHER, SELFPAY | PROVIDERS: PCP Internal Medicine; Referring Provider Internal Medicine; Visit Provider Nurse Practitioner Adult Health | DX: R51.9 Headache, unspecified (principal) | CPT/HCPCS: 64405 ==

== ENCOUNTER → 2021-12-14 10:59 | Outpatient (BNVA) | payer MEDICARE, OTHER, SELFPAY | PROVIDERS: PCP Internal Medicine; Referring Provider Internal Medicine; Visit Provider Nurse Practitioner Adult Health | DX: R51.9 Headache, unspecified (principal) | CPT/HCPCS: 64405 ==

== ENCOUNTER → 2022-01-18 14:56 | Outpatient (BNVA) | payer MEDICARE, OTHER, SELFPAY | PROVIDERS: PCP Internal Medicine; Referring Provider Internal Medicine; Visit Provider Nurse Practitioner Adult Health | DX: R51.9 Headache, unspecified (principal) | CPT/HCPCS: 64405 ==

== ENCOUNTER 2022-01-31 02:18 | Outpatient (RCR) | payer MEDICARE, OTHER, SELFPAY ==
[2022-01-31] MEDS: Normal Saline Flush 10 ML SYR IVP (11:45)
[2022-01-31] MEDS: IRON SUCROSE COMPLEX 300 MG in Normal Saline 250 ML 176.667 MG IVPB (11:47)
[2022-01-31 11:53] LABS: HCT 37.6 % (36.0-46.0); HGB 12.3 g/dL (11.2-15.7); MCH 32.2 pg (27.0-33.0); MCHC 32.7 % (32.0-36.0); MPV 11.3 fL (8.0-11.0); Platelet Count 98 10^3/uL (130-400); RBC 3.82 10^6/uL (3.93-5.22); RDW 13.2 % (11.7-14.6); RDW-SD 47.1 fL; WBC 4.16 10^3/uL (4.4-10.8)
[2022-01-31 12:08] LABS: MCV 98 fL (80-95)
[2022-01-31 12:38] LABS: Iron 118 ug/dL (50-170); Total Iron Binding Capacity 210 ug/dL (250-450); Transferrin Sat 56 % (15-50)
[2022-01-31 12:40] LABS: Ferritin 1613 ng/mL (8-252)
== END 2022-02-18 23:59 | disposition home or self-care (01) ==
LOC: INF 02:18
PROVIDERS: PCP Internal Medicine; Visit Provider Family Medicine
DX: D50.9 Iron deficiency anemia, unspecified (principal)
CPT/HCPCS: 36415; 85027; 96365; 96366; 82728; 83540; 83550; J1756

== ENCOUNTER → 2022-02-06 12:49 | Outpatient (BNVA) | payer MEDICARE, OTHER, SELFPAY | PROVIDERS: PCP Internal Medicine; Referring Provider Internal Medicine; Visit Provider Nurse Practitioner Adult Health | DX: R51.9 Headache, unspecified (principal) | CPT/HCPCS: 64405 ==

== ENCOUNTER 2022-03-14 20:03 | Outpatient (REF) | payer MEDICARE, OTHER, SELFPAY | END 2022-03-14 20:04 | disposition home or self-care (01) | LOC: LBN 20:03 | PROVIDERS: PCP Nurse Practitioner Adult Health; Visit Provider Nurse Practitioner Adult Health | DX: R41.89 Other symptoms and signs involving cognitive functions and awareness (principal); R53.83 Other fatigue | CPT/HCPCS: 87077; 87086; 87186 ==

== ENCOUNTER → 2022-03-15 14:18 | Outpatient (BNVA) | payer MEDICARE, OTHER, SELFPAY | PROVIDERS: PCP Nurse Practitioner Adult Health; Referring Provider Internal Medicine; Visit Provider Nurse Practitioner Adult Health | DX: F03.90 Unspecified dementia, unspecified severity, without behavioral disturbance, psychotic disturbance, mood disturbance, and anxiety (principal); R51.9 Headache, unspecified | CPT/HCPCS: 64405; 99214 ==

== ENCOUNTER → 2022-04-09 13:49 | Outpatient (BNVA) | payer MEDICARE, OTHER, SELFPAY | PROVIDERS: PCP Nurse Practitioner Adult Health; Referring Provider Nurse Practitioner Adult Health; Visit Provider Nurse Practitioner Adult Health | DX: G30.9 Alzheimer's disease, unspecified; F02.80 Dementia in other diseases classified elsewhere, unspecified severity, without behavioral disturbance, psychotic disturbance, mood disturbance, and anxiety; F01.50 Vascular dementia, unspecified severity, without behavioral disturbance, psychotic disturbance, mood disturbance, and anxiety; R51.9 Headache, unspecified | CPT/HCPCS: 64405; 99213; 99214 ==

== ENCOUNTER → 2022-05-07 15:16 | Outpatient (BNVA) | payer MEDICARE, OTHER, SELFPAY | PROVIDERS: PCP Nurse Practitioner Adult Health; Referring Provider Nurse Practitioner Adult Health; Visit Provider Nurse Practitioner Adult Health | DX: R51.9 Headache, unspecified (principal) | CPT/HCPCS: 64405 ==

== ENCOUNTER → 2022-06-04 15:34 | Outpatient (BNVA) | payer MEDICARE, OTHER, SELFPAY | PROVIDERS: PCP Nurse Practitioner Adult Health; Visit Provider Nurse Practitioner Adult Health | DX: R51.9 Headache, unspecified (principal); G30.9 Alzheimer's disease, unspecified; F02.80 Dementia in other diseases classified elsewhere, unspecified severity, without behavioral disturbance, psychotic disturbance, mood disturbance, and anxiety | CPT/HCPCS: 64405; 99213; 99214 ==

== ENCOUNTER 2022-06-06 02:43 | Outpatient (RCR) | payer MEDICARE, OTHER, SELFPAY ==
[2022-06-06] MEDS: Normal Saline Flush 10 ML SYR IVP (12:04)
[2022-06-06] MEDS: IRON SUCROSE COMPLEX 300 MG in Normal Saline 250 ML 176.667 MG IVPB (12:04)
== END 2022-06-20 23:59 | disposition home or self-care (01) ==
LOC: INF 02:43
PROVIDERS: PCP Nurse Practitioner Adult Health; Visit Provider Family Medicine
DX: D50.9 Iron deficiency anemia, unspecified (principal)
CPT/HCPCS: 96365; 96366; J1756

== ENCOUNTER 2022-06-20 13:49 | Outpatient (REF) | payer MEDICARE, OTHER, SELFPAY ==
[2022-06-20 16:42] LABS: Anion Gap 3.1 mmol/L (3-11); BUN 14 mg/dL (7-18); CO2 29.9 mmol/L (21.0-32.0); CREATININE 0.7 mg/dL (0.55-1.02); Calcium 9.2 mg/dL (8.5-10.1); Chloride 105 mmol/L (98-107); Glucose 99 mg/dL (74-106); Potassium 3.7 mmol/L (3.5-5.1); Sodium 138 mmol/L (136-145); TSH (W/Ref FT4) 1.16 uIU/mL (0.36-3.74)
== END 2022-06-20 13:50 | disposition home or self-care (01) ==
LOC: LBN 13:49
PROVIDERS: PCP Nurse Practitioner Adult Health; Visit Provider Nurse Practitioner Adult Health
DX: E03.9 Hypothyroidism, unspecified (principal); I10 Essential (primary) hypertension
CPT/HCPCS: 80048; 84443

== ENCOUNTER → 2022-07-02 10:31 | Outpatient (BNVA) | payer MEDICARE, OTHER, SELFPAY | PROVIDERS: PCP Nurse Practitioner Adult Health; Referring Provider Nurse Practitioner Adult Health; Visit Provider Nurse Practitioner Adult Health | DX: R51.9 Headache, unspecified (principal) | CPT/HCPCS: 64405 ==

== ENCOUNTER → 2022-08-06 14:24 | Outpatient (BNVA) | payer MEDICARE, OTHER, SELFPAY | PROVIDERS: PCP Nurse Practitioner Adult Health; Referring Provider Nurse Practitioner Adult Health; Visit Provider Nurse Practitioner Adult Health | DX: R51.9 Headache, unspecified (principal) | CPT/HCPCS: 64405 ==

== ENCOUNTER → 2022-08-27 15:20 | Outpatient (BNVA) | payer MEDICARE, OTHER, SELFPAY | PROVIDERS: PCP Nurse Practitioner Adult Health; Referring Provider Nurse Practitioner Adult Health; Visit Provider Nurse Practitioner Adult Health | DX: R51.9 Headache, unspecified (principal) | CPT/HCPCS: 64405 ==

== ENCOUNTER → 2022-09-12 15:32 | Outpatient (BNVA) | payer MEDICARE, OTHER, SELFPAY | PROVIDERS: PCP Nurse Practitioner Adult Health; Referring Provider Nurse Practitioner Adult Health; Visit Provider Nurse Practitioner Adult Health | DX: R51.9 Headache, unspecified (principal) | CPT/HCPCS: 64405 ==

== ENCOUNTER 2022-10-03 02:02 | Outpatient (RCR) | payer MEDICARE, OTHER, SELFPAY ==
[2022-10-03] MEDS: Normal Saline Flush 10 ML SYR IVP (13:24)
[2022-10-03] MEDS: IRON SUCROSE COMPLEX 300 MG in Normal Saline 250 ML 176.667 MG IVPB (13:27)
[2022-10-03 13:51] LABS: HCT 39.2 % (36.0-46.0); HGB 12.6 g/dL (11.2-15.7); MCH 32.3 pg (27.0-33.0); MCHC 32.1 % (32.0-36.0); MCV 101 fL (80-95); MPV 11.6 fL (8.0-11.0); RDW 13.8 % (11.7-14.6); RDW-SD 50.8 fL; WBC 3.13 10^3/uL (4.4-10.8)
[2022-10-03 14:19] LABS: Iron 115 ug/dL (50-170); Total Iron Binding Capacity 170 ug/dL (250-450); Transferrin Sat 68 % (15-50)
[2022-10-03 14:30] LABS: Ferritin 1775 ng/mL (8-252)
[2022-10-03 14:46] LABS: Platelet Count 89 10^3/uL (130-400)
== END 2022-10-19 23:59 | disposition home or self-care (01) ==
LOC: INF 02:02
PROVIDERS: PCP Nurse Practitioner Adult Health; Visit Provider Family Medicine
DX: D50.9 Iron deficiency anemia, unspecified (principal)
CPT/HCPCS: 36415; 85027; 96365; 96366; 82728; 83540; 83550; J1756

== ENCOUNTER → 2022-10-08 15:24 | Outpatient (BNVA) | payer MEDICARE, OTHER, SELFPAY | PROVIDERS: PCP Nurse Practitioner Adult Health; Referring Provider Nurse Practitioner Adult Health; Visit Provider Nurse Practitioner Adult Health | DX: R51.9 Headache, unspecified (principal); F03.90 Unspecified dementia, unspecified severity, without behavioral disturbance, psychotic disturbance, mood disturbance, and anxiety; R44.1 Visual hallucinations | CPT/HCPCS: 64405; 99213 ==

== ENCOUNTER → 2022-10-25 15:34 | Outpatient (BNVA) | payer MEDICARE, OTHER, SELFPAY | PROVIDERS: PCP Nurse Practitioner Adult Health; Referring Provider Nurse Practitioner Adult Health; Visit Provider Nurse Practitioner Adult Health | DX: R51.9 Headache, unspecified (principal); F03.90 Unspecified dementia, unspecified severity, without behavioral disturbance, psychotic disturbance, mood disturbance, and anxiety; R44.1 Visual hallucinations | CPT/HCPCS: 64405 ==

== ENCOUNTER → 2022-11-21 09:34 | Outpatient (BNVA) | payer MEDICARE, OTHER, SELFPAY | PROVIDERS: PCP Nurse Practitioner Adult Health; Referring Provider Nurse Practitioner Adult Health; Visit Provider Nurse Practitioner Adult Health | DX: R51.9 Headache, unspecified (principal); I10 Essential (primary) hypertension | CPT/HCPCS: 64405; 99212 ==

== ENCOUNTER → 2022-12-19 09:51 | Outpatient (BNVA) | payer MEDICARE, OTHER, SELFPAY | PROVIDERS: PCP Nurse Practitioner Adult Health; Referring Provider Nurse Practitioner Adult Health; Visit Provider Nurse Practitioner Adult Health | DX: R51.9 Headache, unspecified (principal) | CPT/HCPCS: 64405 ==

== ENCOUNTER → 2023-01-08 11:14 | Outpatient (BNVA) | payer MEDICARE, OTHER, SELFPAY | PROVIDERS: PCP Nurse Practitioner Adult Health; Referring Provider Nurse Practitioner Adult Health; Visit Provider Nurse Practitioner Adult Health | DX: R51.9 Headache, unspecified (principal) | CPT/HCPCS: 64405 ==

== ENCOUNTER → 2023-02-05 15:18 | Outpatient (BNVA) | payer MEDICARE, OTHER, SELFPAY | PROVIDERS: PCP Nurse Practitioner Adult Health; Referring Provider Nurse Practitioner Adult Health; Visit Provider Nurse Practitioner Adult Health | DX: G30.9 Alzheimer's disease, unspecified (principal); F02.811 Dementia in other diseases classified elsewhere, unspecified severity, with agitation; F22 Delusional disorders; F01.50 Vascular dementia, unspecified severity, without behavioral disturbance, psychotic disturbance, mood disturbance, and anxiety; R51.9 Headache, unspecified; I10 Essential (primary) hypertension | CPT/HCPCS: 64405; 99213; 99214 ==

== ENCOUNTER → 2023-03-12 14:18 | Outpatient (BNVA) | payer MEDICARE, OTHER, MEDICAID, SELFPAY | PROVIDERS: PCP Nurse Practitioner Adult Health; Referring Provider Nurse Practitioner Adult Health; Visit Provider Nurse Practitioner Adult Health | DX: R51.9 Headache, unspecified (principal) | CPT/HCPCS: 64405 ==

== ENCOUNTER → 2023-04-03 12:21 | Outpatient (BNVA) | payer MEDICARE, OTHER, MEDICAID, SELFPAY | PROVIDERS: PCP Nurse Practitioner Adult Health; Referring Provider Nurse Practitioner Adult Health; Visit Provider Nurse Practitioner Adult Health | DX: G44.1 Vascular headache, not elsewhere classified (principal) | CPT/HCPCS: 64405 ==

== ENCOUNTER 2023-04-10 03:05 | Outpatient (RCR) | payer MEDICARE, OTHER, MEDICAID, SELFPAY ==
[2023-04-10] MEDS: IRON SUCROSE COMPLEX 300 MG in Normal Saline 250 ML 176.667 MG IVPB (12:10)
[2023-04-10] MEDS: Normal Saline Flush 10 ML SYR IVP (12:13)
== END 2023-04-20 23:59 | disposition home or self-care (01) ==
LOC: INF 03:05
PROVIDERS: PCP Nurse Practitioner Adult Health; Visit Provider Family Medicine
DX: D50.9 Iron deficiency anemia, unspecified (principal)
CPT/HCPCS: 96365; 96366; J1756

== ENCOUNTER → 2023-04-30 12:19 | Outpatient (BNVA) | payer MEDICARE, OTHER, MEDICAID, SELFPAY | PROVIDERS: PCP Nurse Practitioner Adult Health; Referring Provider Nurse Practitioner Adult Health; Visit Provider Nurse Practitioner Adult Health | DX: G30.9 Alzheimer's disease, unspecified (principal); F02.811 Dementia in other diseases classified elsewhere, unspecified severity, with agitation; F01.50 Vascular dementia, unspecified severity, without behavioral disturbance, psychotic disturbance, mood disturbance, and anxiety; R51.9 Headache, unspecified; I10 Essential (primary) hypertension | CPT/HCPCS: 64405; 99213; 99214 ==

== ENCOUNTER → 2023-05-21 09:38 | Outpatient (BNVA) | payer MEDICARE, OTHER, MEDICAID, SELFPAY | PROVIDERS: PCP Nurse Practitioner Adult Health; Visit Provider Psychiatry & Neurology Neurology | DX: G30.9 Alzheimer's disease, unspecified (principal); F02.811 Dementia in other diseases classified elsewhere, unspecified severity, with agitation; F01.50 Vascular dementia, unspecified severity, without behavioral disturbance, psychotic disturbance, mood disturbance, and anxiety; R51.9 Headache, unspecified | CPT/HCPCS: 64405; 99213 ==

== ENCOUNTER → 2023-06-27 13:18 | Outpatient (BNVA) | payer MEDICARE, OTHER, MEDICAID, SELFPAY | PROVIDERS: PCP Nurse Practitioner Adult Health; Referring Provider Nurse Practitioner Adult Health; Visit Provider Psychiatry & Neurology Neurology | DX: R51.9 Headache, unspecified (principal); G30.9 Alzheimer's disease, unspecified; F02.811 Dementia in other diseases classified elsewhere, unspecified severity, with agitation; F01.50 Vascular dementia, unspecified severity, without behavioral disturbance, psychotic disturbance, mood disturbance, and anxiety | CPT/HCPCS: 64405 ==

== ENCOUNTER → 2023-07-25 15:22 | Outpatient (BNVA) | payer MEDICARE, OTHER, MEDICAID, SELFPAY | PROVIDERS: PCP Nurse Practitioner Adult Health; Referring Provider Nurse Practitioner Adult Health; Visit Provider Psychiatry & Neurology Neurology | DX: G30.9 Alzheimer's disease, unspecified (principal); F02.811 Dementia in other diseases classified elsewhere, unspecified severity, with agitation; F01.50 Vascular dementia, unspecified severity, without behavioral disturbance, psychotic disturbance, mood disturbance, and anxiety; G43.009 Migraine without aura, not intractable, without status migrainosus | CPT/HCPCS: 99213 ==

== ENCOUNTER 2023-07-29 17:30 | Inpatient (IN) | payer MEDICARE, OTHER, MEDICAID, SELFPAY ==
[2023-07-29] VITALS (53 sets, daily range): BP systolic 84–140; BP diastolic 42–104; PULSE 93–156; RESP 15–37; TEMP 37.9; O2SAT 95–100
--- NOTE | 2023-07-29 18:26 | ED.GENADUL_ITS ---
HPI General Stated Complaint: RespSymp ADALGISA: 3 Date/Time Provider Initiated Documentation: 07/29/23 17:52. HPI Narrative: 83 year-old female presents to ED today by POV/ambulating with a chief complaint of fever, cough, shortness of breath onset yesterday, also has had a rash to R face for a week just started steroid topical for today. Quality described as general malaise, non-productive cough, shortness of breath, no radiation to vomiting, black/bloody stools, severe abdominal pain, altered mentation. Severity is described as 8/10. Palliating factors include nothing specific attempted. Provoking factors include nothing specific. Events leading up to the incident/Associated Symptoms: Patient denies smoking history, is vaccinated for Covid. Patient not anticoagulated. Related Data Home Medications Medication Instructions Recorded Confirmed aspirin 81 mg tablet 81 mg PO DAILY 09/24/18 07/29/23 balsalazide 750 mg capsule See Rx Instructions PO TID 05/14/19 07/29/23 iron sucrose 200 mg iron/10 mL 300 mg IV [id number] 10/26/21 07/29/23 intravenous solution (Venofer) atorvastatin 20 mg tablet 20 mg PO DAILY #90 tabs 09/24/22 07/29/23 pantoprazole 40 mg tablet,delayed 40 mg PO BID #180 tabs 09/24/22 07/29/23 release syringe with cannula,disposabl 17 #3 SYRGS 10/22/22 07/25/23 x 3 mL (BD Blunt Plastic Cannula) levothyroxine 50 mcg tablet 50 mcg PO DAILY #90 tabs 12/10/22 07/29/23 mirtazapine 7.5 mg tablet 7.5 mg PO QHS #90 tabs 12/13/22 07/29/23 urea 45 % topical gel (ANIYAH-Urea) 1 applic topical BID #28 mL 03/07/23 07/29/23 gabapentin 100 mg capsule 100 mg PO TID #270 caps 04/30/23 07/29/23 ketoconazole 2 % topical cream 1 applic topical DAILY 6 months 05/16/23 07/29/23 #60 grams metoprolol succinate 50 mg See Rx Instructions .Route 06/10/23 07/29/23 tablet,extended release 24 hr .COMPLEX #90 tabs cyanocobalamin (vitamin B-12) 1,000 mcg IM monthly #3 vials 06/19/23 07/29/23 1,000 mcg/mL injection solution quetiapine 25 mg tablet See Rx Instructions PO .COMPLEX 06/27/23 07/29/23 #135 tabs Size M incontinence briefs #40 ea 07/25/23 07/25/23 galcanezumab-gnlm 120 mg/mL 120 mg subcut QMONTH #3 mL 07/25/23 07/29/23 subcutaneous pen injector (Emgality Pen) triamcinolone acetonide 0.1 % 1 applic topical BID PRN R ear & 07/25/23 07/29/23 topical cream hand dermatitis #15 grams Previous Rx's Medication Instructions Recorded atorvastatin 20 mg tablet 20 mg PO DAILY #90 tabs 09/24/22 pantoprazole 40 mg tablet,delayed 40 mg PO BID #180 tabs 09/24/22 release syringe with cannula,disposabl 17 #3 SYRGS 10/22/22 x 3 mL (BD Blunt Plastic Cannula) levothyroxine 50 mcg tablet 50 mcg PO DAILY #90 tabs 12/10/22 mirtazapine 7.5 mg tablet 7.5 mg PO QHS #90 tabs 12/13/22 urea 45 % topical gel (ANIYAH-Urea) 1 applic topical BID #28 mL 03/07/23 gabapentin 100 mg capsule 100 mg PO TID #270 caps 04/30/23 ketoconazole 2 % topical cream 1 applic topical DAILY 6 months 05/16/23 #60 grams metoprolol succinate 50 mg See Rx Instructions .Route 06/10/23 tablet,extended release 24 hr .COMPLEX #90 tabs cyanocobalamin (vitamin B-12) 1,000 mcg IM monthly #3 vials 06/19/23 1,000 mcg/mL injection solution quetiapine 25 mg tablet See Rx Instructions PO .COMPLEX 06/27/23 #135 tabs Size M incontinence briefs #40 ea 07/25/23 galcanezumab-gnlm 120 mg/mL 120 mg subcut QMONTH #3 mL 07/25/23 subcutaneous pen injector (Emgality Pen) triamcinolone acetonide 0.1 % 1 applic topical BID PRN R ear & 07/25/23 topical cream hand dermatitis #15 grams Allergies Allergy/AdvReac Type Severity Reaction Status Date / Time acetaminophen AdvReac Intermediate Headache Verified 07/29/23 18:26 ibuprofen AdvReac Intermediate Headache Verified 07/29/23 18:26 lactose intolerant AdvReac Intermediate cramps, Uncoded 07/29/23 18:26 diarrhea Review of Systems All systems reviewed & are unremarkable except as noted in HPI and below PFSH All Active Problems (Updated 07/29/23 @ 22:54 by Brent Carr) Elevated liver function tests (Chronic) Thrombocytopenia (Chronic) Pneumonia (Acute) Atrial fibrillation with rapid ventricular response (Acute) Urinary incontinence (Acute) Inflammatory bowel disease (Chronic) [facility] Note 04/17/23 Metatarsalgia of left foot (Acute) Corns and callosities (Acute) Nail dystrophy (Acute) Vascular dementia (Chronic) Delusions (Acute) Alzheimer's dementia with agitation (Acute) Palliative care patient (Acute) Dementia (Chronic) Essential hypertension (Chronic) Onychomycosis (Acute ~06/2021) Iron deficiency anemia (Acute) Managed by [facility] 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) Chronic anemia (Chronic 09/04/17) IBD-Crohns Osteoporosis (Chronic 03/27/16) Migraines (Chronic 09/04/17) Hypothyroidism (Chronic 09/04/17) Depression (Chronic 09/12/17) Crohn's disease with complication (Chronic 09/04/17) Crohn's colitis and ileitis, mild-[facility] Note 08/01/22 B12 deficiency (Chronic 09/04/17) Anxiety (Chronic 09/04/17) Medical History Visual hallucinations Sensorineural hearing loss, bilateral Fall Deep vein thrombosis (DVT) (09/12/17) Mild intermittent asthma without complication (09/12/17) Posterior staphyloma [facility] report dated 04/17/18. Brent Castaneda, OD Astigmatism of both eyes [facility] report dated 04/17/18. Brent Castaneda, OD Grade 1 hypertensive retinopathy Meibomian gland dysfunction (MGD) [facility] exam dated 04/17/18. Brent Castaneda, OD Neck pain (09/04/17) Fatigue (09/04/17) Exacerbation of Crohn's disease Microcytic anemia Nonspecific ST-T wave electrocardiographic changes Dehydration Hypomagnesemia Asthma exacerbation Acute bronchitis Influenza A Surgical History H/O colonoscopy (04/07/18) [facility] Hysterectomy, Laproscopic Hiatal Hernia repair (09/11/17) Repair of umbilical hernia (09/11/17) Social History Smoking/Tobacco Use Status: Never Smoking risk assessment performed?: Yes Alcohol Intake: never Substance use type: does not use Household members: children Housing: apartment Number of Children: 3 Current gender identity: female What is your relationship status?: Panel score (0-1 are the most socially isolated patients): 0 What type of physical activity do you participate in: none Seatbelt use: always Water heater temp set <120 deg: Yes Working smoke detector in home: Yes Fire extinguisher in home: Yes Carbon monox detector in home: Yes Firearms in home: No Do you feel safe at home: Yes Do you feel safe in your relationship?: Yes History History Para 3 Hx # Term Pregnancies Multiple births Hx # Pregnancies Ectopic pregnancies AB induced Hx Number of Living Children AB spontaneous Exam Narrative Exam Narrative: GENERAL APPEARANCE: Well-nourished, toxic, awake and alert, atraumatic, no acute distress. SKIN: Warm, pink, dry, intact, without rashes/lesions/ulcerations. HEAD: Normocephalic, atraumatic, normal hair distribution for gender/age. EYES: Pupils PERRLA, EOMs intact without nystagmus, normal conjunctiva, no exudates on lids/lashes. ENT: Nares patent, no circumoral cyanosis, no facial swelling NECK: Supple, trachea midline, painless cervical ROM. LUNGS/CHEST: Lungs- R base diminished, question L base rales, non-labored respirations, normal A/P diameter, symmetrical expansion, no chest wall deformity HEART (CV/PV): Regular rate and rhythm without murmur, no peripheral edema, no JVD. ABDOMEN: Soft, non-distended, no guarding, no tenderness. MSK: Normal ROM, no swelling/deformity to bilateral UEs or LEs, moving all extr emities without weakness, no cyanosis, spine midline without tenderness, normal curvature. NEURO: Mental Status AAOx4 - alert to person, place, time, events No facial droop, no forehead involvement. Motor: No focal weakness - strength 5/5 in bilateral UEs and LEs, proximal and distal, symmetric. Sensory: sensation intact to light touch globally. Gait NT. PSYCH: euthymic, cooperative, pleasant, appropriate speech Course Vital Signs Vital signs: Vital Signs Temperature 37.9 C H 07/29/23 17:46 Pulse 110 H 07/29/23 17:46 Respiratory Rate 18 07/29/23 17:46 Blood Pressure 140/104 H 07/29/23 17:46 Pulse Oximetry 95 07/29/23 17:46 Temperature 37.9 C H 07/29/23 17:46 Temperature Source Oral 07/29/23 17:46 Pulse 110 H 07/29/23 17:46 Respiratory Rate 18 07/29/23 17:46 Respiratory Effort Short of Breath 07/29/23 18:17 Blood Pressure 140/104 H 07/29/23 17:46 Blood Pressure Position Supine 07/29/23 17:46 Pulse Oximetry 95 07/29/23 17:46 Oxygen Delivery Method Room Air 07/29/23 17:46 Oxygen Flow Rate 0 07/29/23 17:46 Medical Decision Making This dictation utilizes [id number] dictation software and may contain unedited grammatical errors. 83 y/o F presents to ED today with a chief complaint of fever, cough, shortness of breath- onset yesterday, concurrent R facial rash macular for 1 week, just started OTC steroid cream for it today. Patient is weak and lethargic, denies cardiac or pulmoanry history, is tolerating PO intake, denies bowel/urinary changes. Patients' medical history: history DVT, anemia, Crohn's, asthma. Family and social history: no sick contacts, no recent travel, denies smoking history. Pertinent exam findings / vital signs include mild respiratory distress with labored respirations, benign abdomen, febrile, neuro intact. Differential / pathologies of concern include PNA, CHF, Pleural effusion, viral syndrome, hypoxemic respiratory failure, sepsis. Diagnostic studies of: -CBC, CMP, lactate, blood cx's, D-dimer, Trop I, BNP, VBG, CTA Chest PE Study. -CBC shows no leukocytosis, low lymphocytes (?viral syndrome) -CMP shows chronic elevated LFTs, mild elev bilirubin -BNP significant elevation at 3700 -Trop I negative -D-dimer 1999, ordering CTA -Lactate 1.3 Interventions of: -based on CTA findings- -upon return from CT, patient noted tachycardia in 150s, a fib w/ RVR, which is a new condition for her. Her BP was in the 90s systolic, I gave fluid bolus with improvement, and she was given 15mg diltiazem, but during administration her BP was noted to be 80s systolic, she received 7.5mg IV diltiazem @ 2140 -HR is improved at 105-110 at this time, still in atrial fibrillation- patient is not anticoagulated, and does meet CHADSVASC2 criteria for anticoagulation. I would not perform cardioversion at this time as I am unsure how long she has been in atrial fibrillation. -Patient likely needs admission for New Onset Atrial Fibrillation, significant elevation of BNP, and possible PNA- has a R pleural effusion/atelectasis which could represent a pneumonia- she did receive IV Cefepime. Abnormal pulse, respiratory distress, febrile, with new onset atrial fibrillation. Recommend ECHO from in-patient and transition to PO antibiotics at that time. Consulted with Hospitalist Dr. Carr for admission @ 2206. Accepted for tele-admit at 2235. Patient wishes to remain DNR/DNI, is open to oral anticoagulation as goals of care would be prevent stroke. Findings not consistent with Sepsis at this time, but patient does have new onset atrial fibrillation, question PNA vs R pleural effusion vs fever from viral syndrome. Disposition of Atrial Fibrillation. Patient verbalized understanding of the plan and return to ED criteria and engaged in shared decision making. Medical Records Medical records reviewed: Yes I reviewed the patient's medical records. Imaging Data Radiologic Study: Imaging: CT Scan Radiologist's impression: Exam: CTA Chest With Contrast Exam date and time: 07/29/2023 8:14 PM Age: 83 years old Clinical indication: Abnormal findings; Abnormal diagnostic tests; Shortness of breath and other: Tachycardia; Patient HX: Elevated d-dimer, tachycardia, SOB TECHNIQUE: Imaging protocol: Computed tomographic angiography of the chest with contrast. Exam focused on the arteries. 3D rendering (Not supervised by radiologist): MIP and/or 3D reconstructed images were created by the technologist. Radiation optimization: All CT scans at this facility use at least one of these dose optimization techniques: automated exposure control; mA and/or kV adjustment per patient size (includes targeted exams where dose is matched to clinical indication); or iterative reconstruction. Contrast material: OMNIPAQUE 350; Contrast volume: 75 ml; Contrast route: INTRAVENOUS (IV); COMPARISON: CT CHEST/ABD/PEL W 09/15/2018 5:36 PM FINDINGS: Pulmonary arteries: No acute pulmonary emboli. Aorta: Atherosclerotic disease of the thoracic aorta, without aneurysm or dissection. Lungs: Minimal left basilar atelectasis or scarring. Pleural spaces: Small right pleural effusion with associated right basilar atelectasis/scarring. Heart: Unremarkable. No cardiomegaly. No pericardial effusion. Coronary arteries: Mild three-vessel coronary artery atherosclerotic disease. Lymph nodes: Few small lymph nodes within the mediastinum, likely reactive, but nonspecific. Diaphragm: Small-sized hiatal hernia. Eventration of the right anterior hemidiaphragm. Bones/joints: Multilevel thoracic spine degenerative disc space narrowing and osteophyte formation. Soft tissues: Unremarkable. IMPRESSION: No acute pulmonary emboli. Dictated and Authenticated by: Shahriar Price MD. Ordering:MISTI Falk MD Lab Data Lab results reviewed: Yes I reviewed the patient's lab results. Labs: 07/29/23 19:00 Blood Blood Culture - Pending 07/29/23 19:10 Blood Blood Culture - Pending Laboratory Tests Range/Units 07/29/23 18:50 WBC (4.4-10.8) 10^3/uL 7.42 RBC (3.93-5.22) 10^6/uL 3.60 L Hgb (11.2-15.7) g/dL 11.3 Hct (36.0-46.0) % 34.6 L MCV (80-95) fL 96 H MCH (27.0-33.0) pg 31.4 MCHC (32.0-36.0) % 32.7 RDW (11.7-14.6) % 14.5 Plt Count (130-400) 10^3/uL 95 L MPV (8.0-11.0) fL 11.4 H Immature Gran % 0.4 Neutrophils % 86.8 Lymphocytes % 6.5 Monocytes % 5.5 Eosinophils % 0.3 Basophils % 0.5 Nucleated RBC % (0.0-0.3) % 0.0 Absolute Neutrophils (1.2-6.7) 10^3/uL 6.44 Absolute Lymphocytes (1.2-3.4) 10^3/uL 0.48 L Absolute Monocytes (0.1-0.8) 10^3/uL 0.41 Absolute Eosinophils (0.0-0.7) 10^3/uL 0.02 Absolute Basophils (0.0-0.2) 10^3/uL 0.04 RBC Morphology Normal D-Dimer (<500) ng/mlFEU 2023 H VBG pH (7.31-7.41) 7.40 VBG pCO2 (41-51) mmHg 42 VBG pO2 mmHg 33 VBG HCO3 (23-28) mmol/L 26 VBG Total CO2 (24-29) mmol/L 24 VBG O2 Saturation % 65 VBG Base Excess (-2-3) mmol/L 2 VBG Lactate (0.6-1.4) mmol/L 1.3 Sodium (136-145) mmol/L 140 Potassium (3.5-5.1) mmol/L 3.7 Chloride (98-107) mmol/L 106 Carbon Dioxide (21.0-32.0) mmol/L 26.2 Anion Gap (3-11) mmol/L 7.8 BUN (7-18) mg/dL 13 Creatinine (0.55-1.02) mg/dL 0.8 Est GFR (CKD-EPI 2020) (mL/min/1.73m2) 72.61 Glucose (74-106) mg/dL 81 Calcium (8.5-10.1) mg/dL 8.9 Magnesium (1.8-2.4) mg/dL 1.8 Total Bilirubin (0.2-1.0) mg/dL 1.3 H AST (15-37) U/L 45 H ALT (14-59) U/L 20 Alkaline Phosphatase (46-116) U/L 172 H Troponin I (<or=60) ng/L < 50 C-Reactive Protein (0.0-0.3) mg/dL 1.29 H NT-Pro-B Natriuret Pep (<300) pg/mL 3742 H Total Protein (6.4-8.2) g/dL 7.3 Albumin (3.4-5.0) g/dL 3.3 L Procalcitonin ng/mL < 0.1 Quality:SDOH Health Related Social Needs: No Data to Display Discharge Plan Disposition Patient Disposition: Admit to [facility] Condition: Stable Discharge Details Clinical Impression: Fever, Atrial fibrillation Primary Care Provider: Elizabeth Hathaway ED Provider: Dileep Bland Home Meds and New Rx's Prescriptions: No Action mirtazapine 7.5 mg tablet 7.5 mg PO QHS Qty: 90 3RF Rx Instructions: For appetite, mood, and sleep. urea [ANIYAH-Urea] 45 % gel 1 applic topical BID Qty: 28 3RF Rx Instructions: Apply to the callus on the left twice daily ketoconazole 2 % cream 1 applic topical DAILY 180 Days Qty: 60 3RF Rx Instructions: Apply to toenails twice daily gabapentin 100 mg capsule 100 mg PO TID Qty: 270 3RF quetiapine 25 mg tablet See Rx Instructions PO .COMPLEX Qty: 135 3RF Rx Instructions: 12.5mg am and 25mg HS orally; Emgality Pen 120 mg/mL pen injector 120 mg subcut QMONTH Qty: 3 3RF aspirin 81 mg tablet 81 mg PO DAILY triamcinolone acetonide 0.1 % cream 1 applic topical BID PRN (Reason: R ear & hand dermatitis) Qty: 15 0RF Rx Instructions: Use thin layer to affected areas on hand and R ear up to 2x/d; avoid long- term use (DME) Size M incontinence briefs See Rx Instructions .Route .MEDSUPPLY Qty: 40 11RF Rx Instructions: As directed (typically 1 per day) for urinary incontinence balsalazide 750 mg capsule See Rx Instructions PO TID Rx Instructions: 05/13/19 [facility] 1500 mg (2 caps) PO three times a day Venofer 200 mg iron/10 mL solution 300 mg IV [id number] Patient Comments: 08/29/21 q 3m per pt now Rx Instructions: 06/01/20- [facility]-change infusion to every 4 wks. if hgb below 7 will tranfuse. 05/13/19 [facility] [place] IVF every 6 weeks. mk 04/05/21 [facility] Infuse if Hgb<7. mk 10/25/21 [facility] [facility] - Q16 weeks atorvastatin 20 mg tablet 20 mg PO DAILY Qty: 90 3RF pantoprazole 40 mg tablet,delayed release (DR/EC) 40 mg PO BID Qty: 180 3RF (DME) BD Blunt Plastic Cannula 17 x 3 mL syringe 1 ea Miscellaneous monthly Qty: 3 12RF Rx Instructions: BD 3ml syringes 25Gx1 for B-12 injections levothyroxine 50 mcg tablet 50 mcg PO DAILY Qty: 90 3RF metoprolol succinate 50 mg tablet extended release 24 hr See Rx Instructions .ROUTE .COMPLEX Qty: 90 3RF Dose Instruction: TAKE ONE TABLET BY MOUTH EVERY DAY FOR BLOOD PRESSURE Rx Instructions: TAKE ONE TABLET BY MOUTH EVERY DAY FOR BLOOD PRESSURE cyanocobalamin (vitamin B-12) 1,000 mcg/mL solution 1,000 mcg IM monthly Qty: 3 3RF
[2023-07-29 18:57] LABS: BE (Venous) 2 mmol/L (-2-3); HCO3 (Venous) 26 mmol/L (23-28); O2 Sat (Venous) 65 %; TCO2 (Venous) 24 mmol/L (24-29); pCO2 (Venous) 42 mmHg (41-51); pO2 (Venous) 33 mmHg
[2023-07-29 18:58] LABS: Lactate 1.3 mmol/L (0.6-1.4)
[2023-07-29 18:59] LABS: Abs Immature Grans 0.03 10^3/uL (0.0-0.06); Absolute Basophil Count 0.04 10^3/uL (0.0-0.2); Absolute Eosinophil Count 0.02 10^3/uL (0.0-0.7); Absolute Lymphocyte Count 0.48 10^3/uL (1.2-3.4); Absolute Monocyte Count 0.41 10^3/uL (0.1-0.8); Absolute Neutrophil Count 6.44 10^3/uL (1.2-6.7); Basophils % 0.5; Eosinophils % 0.3; HCT 34.6 % (36.0-46.0); HGB 11.3 g/dL (11.2-15.7); Immature Grans % 0.4; Lymphocytes % 6.5; MCH 31.4 pg (27.0-33.0); MCHC 32.7 % (32.0-36.0); MCV 96 fL (80-95); MPV 11.4 fL (8.0-11.0); Monocytes % 5.5; Neutrophils % 86.8; RDW 14.5 % (11.7-14.6); RDW-SD 51.3 fL; WBC 7.42 10^3/uL (4.4-10.8)
[2023-07-29 19:01] LABS: Platelet Count 95 10^3/uL (130-400)
[2023-07-29 19:09] LABS: Diff Comment PLT Morph Reviewed; RBC Morphology Normal
[2023-07-29] MEDS: Albuterol/Ipratropium 3 ML UPD VIAL 9 ML UPD (19:15)
[2023-07-29] MEDS: Acetaminophen 325 MG TAB 650 MG PO (19:15)
[2023-07-29 19:21] LABS: ALT 20 U/L (14-59); AST 45 U/L (15-37); Albumin 3.3 g/dL (3.4-5.0); Alkaline Phosphatase 172 U/L (46-116); Anion Gap 7.8 mmol/L (3-11); BUN 13 mg/dL (7-18); Bilirubin, Total 1.3 mg/dL (0.2-1.0); C-Reactive Protein 1.29 mg/dL (0.0-0.3); CO2 26.2 mmol/L (21.0-32.0); CREATININE 0.8 mg/dL (0.55-1.02); Calcium 8.9 mg/dL (8.5-10.1); Chloride 106 mmol/L (98-107); Estimated GFR 72.61 (mL/min/1.73m2); Glucose 81 mg/dL (74-106); Magnesium 1.8 mg/dL (1.8-2.4); NT-proBNP 3742 pg/mL (<300); Potassium 3.7 mmol/L (3.5-5.1); Sodium 140 mmol/L (136-145); Total Protein 7.3 g/dL (6.4-8.2); Troponin I < 50 ng/L (<or=60)
[2023-07-29 19:30] LABS: D-Dimer 2024 ng/mlFEU (<500)
--- NOTE | 2023-07-29 19:30 | DI.CT_ITS ---
Exam(s) CT CHEST PE CTA EXAM: CT CHEST PE CTA CLINICAL HISTORY: elevated d-dimer, tachycardia, SOB. TECHNIQUE: Imaging Protocol: CT angiography of the chest was performed using pulmonary embolus dominik col. Multi planar reconstructions were performed. CONTRAST MATERIAL: Intravenous: Omnipaque 350 Contrast volume: 100 cc COMPARISON: CT CT CHEST/ABD/PEL W from 09/15/2018 FINDINGS: CHEST: PULMONARY ARTERIES: There are no intraluminal filling defects to suggest acute pulmonary emboli. LUNGS: There is a moderate size right pleural effusion. Some infiltrate is noted in the posterior ba loren segment of the right lower lobe.. No infiltrates evident in the left lung and no left pleural ef fusion. No focal findings in the trachea and mainstem bronchi. MEDIASTINUM: There is no hilar nor mediastinal adenopathy. CARDIAC: Mild cardiomegaly. No pericardial effusion.Caliber of the thoracic aorta is within normal l imits. No dissection. There is no significant shift of the interventricular septum. PARTIALLY VISUALIZED UPPERMOST ABDOMEN: Cirrhotic appearing liver. Mild perihepatic ascites evident. Mild anasarca. Splenomegaly. OSSEOUS: No significant osseous lesions.No fractures evident.. IMPRESSION: 1. No evidence of acute pulmonary emboli. However, there is unilateral moderate size right pleural e ffusion and some infiltrate in the right lung base. This requires follow-up. 2. No evidence of aortic dissection nor pericardial effusion. Mild cardiomegaly noted. 3. Cirrhotic liver. Splenomegaly. Mild ascites. First read by [facility]. RADIATION DOSE DELIVERED: 270.7mGy.cm Total DLP DATA REPOSITORY: All CT scans at this facility are submitted to the National Radiology Data Registry (NRDR) Dose Index Registry (DIR) with the [employer] ([employer]). RADIATION OPTIMIZATION: All CT scans at this facility use at least one of these dose optimization te chniques: automated exposure control; mA and/or kV adjustment per patient size (includes targeted exa ms where dose is matched to clinical indication); or iterative reconstruction.
[2023-07-29 19:32] LABS: Procalcitonin < 0.1 ng/mL
[2023-07-29] MEDS: Omnipaque 350 MG/ML 100 ML BTL IJ (20:11)
[2023-07-29] MEDS: Normal Saline - Diluent 50 ML VIAL IJ (20:12)
[2023-07-29] MEDS: Normal Saline Flush 10 ML SYR IVP (20:12)
--- NOTE | 2023-07-29 20:30 | RT.EKG_ITS ---
APPROVED REPORT Exam: Resting ECG Reason for Exam: tachycardia Patient Location: E HR:150 bpm ECG Measurements Heart Rate 150 AXIS TX [id number] P [id number] QRSd 71 QRS 1 QT 280 T 193 QTc 440 Conclusion Atrial fibrillation with rapid V-rate...A-rate 344 Probable LVH with secondary repol abnrm...multiple LVH criteria Narrow complex atrial fibrillation with RVR at a rate of 150. Normal axis. QTc within normal limits . Mild ST segment flattening left lateral chest wall leads. No T wave inversions. No prior for [facility].
[2023-07-29] MEDS: CEFEPIME 2 GM in Normal Saline 100 ML IVPB (20:48)
[2023-07-29] MEDS: Normal Saline 1,000 ML 999 ML IV (20:49)
--- NOTE | 2023-07-29 21:14 | DI.VRAD_ITS ---
PROCEDURE INFORMATION: Exam: CTA Chest With Contrast Exam date and time: 07/29/2023 8:14 PM Age: 83 years old Clinical indication: Abnormal findings; Abnormal diagnostic tests; Shortness of breath and other: Tachycardia; Patient HX: Elevated d-dimer, tachycardia, SOB TECHNIQUE: Imaging protocol: Computed tomographic angiography of the chest with contrast. Exam focused on the arteries. 3D rendering (Not supervised by radiologist): MIP and/or 3D reconstructed images were created by the technologist. Radiation optimization: All CT scans at this facility use at least one of these dose optimization techniques: automated exposure control; mA and/or kV adjustment per patient size (includes targeted exams where dose is matched to clinical indication); or iterative reconstruction. Contrast material: OMNIPAQUE 350; Contrast volume: 75 ml; Contrast route: INTRAVENOUS (IV); COMPARISON: CT CHEST/ABD/PEL W 09/15/2018 5:36 PM FINDINGS: Pulmonary arteries: No acute pulmonary emboli. Aorta: Atherosclerotic disease of the thoracic aorta, without aneurysm or dissection. Lungs: Minimal left basilar atelectasis or scarring. Pleural spaces: Small right pleural effusion with associated right basilar atelectasis/scarring. Heart: Unremarkable. No cardiomegaly. No pericardial effusion. Coronary arteries: Mild three-vessel coronary artery atherosclerotic disease. Lymph nodes: Few small lymph nodes within the mediastinum, likely reactive, but nonspecific. Diaphragm: Small-sized hiatal hernia. Eventration of the right anterior hemidiaphragm. Bones/joints: Multilevel thoracic spine degenerative disc space narrowing and osteophyte formation. Soft tissues: Unremarkable. IMPRESSION: No acute pulmonary emboli. Dictated and Authenticated by: Shahriar Price MD. Ordering:MISTI Falk MD
[2023-07-29] MEDS: dilTIAZem 25 MG/5 ML VIAL 15 MG IVP (21:43)
--- NOTE | 2023-07-29 21:44 | SUR.INTRAOP ---
During dilt administration BP decreased to 100/50's. Administration of Dilt stopped, BP rechecked- 80's/50's
--- NOTE | 2023-07-29 22:46 | W.PM.HP.N ---
Date of service: 07/29/23 Time of Service: 22:46 Assessment and Plan Assessment and plan (1) Atrial fibrillation with rapid ventricular response: Start date: 07/29/23 Status: Acute Assessment and plan: This is an 83-year-old lady who presented to the ED with her older son and [id number] having fever and acute shortness of breath. She was found to be in rapid ventricular response with atrial fibrillation which is a new rhythm. Patient did not complain of chest pain or palpitations. Evaluation did include workup of her fever though she did not have sepsis syndrome and was found to have a possible right lower lobe process which was treated aggressively pending follow-up lab and cultures. She also had a new rash over her right face which appear to be swollen with some tenderness over her mastoid area with no imaging of the head performed which should be done in the morning CT of the head attention to the mastoid bone. This could be the source of fever as well. She was not hypoxic and did rule out for acute PE. Her TSH was also normal on daily levothyroxine. She had no chest pain and troponins were negative with no evidence of acute cardiac ischemia. She was admitted for cardiac monitoring on the split dosing metoprolol which she takes daily and 50 mg of metoprolol succinate titrating to heart rate control without causing hypotension which continues to be borderline as in the ED. Her BNP is elevated from previous mildly elevated BNP in 2018 and she has had no recent echocardiogram with will be updated as stated. Will gently hydrate the patient because of her hypotension and fever but if any worsening symptoms, IV fluids will be adjusted. Will diuresis only if needed with her hypotension limiting treatment options until further investigations. Presently she does not look significantly fluid overloaded. She is a DNR/DNI. (2) Pneumonia: Start date: 07/29/23 Status: Acute Assessment and plan: Right lower lobe atelectasis versus infiltrate with presenting symptoms of fever and shortness of breath with no PE or other acute process. She will be started on IV cefepime and doxycycline pending cultures and respiratory status. She does not appear septic at this time even though she does have low blood pressure but may be more associated with her atrial fibrillation new onset. Qualifiers: Laterality: right Lung location: lower lobe of lung Pneumonia type: due to unspecified organism Qualified Code(s): J18.9 - Pneumonia, unspecified organism (3) Cellulitis, face: Start date: 07/27/23 Status: Acute Assessment and plan: Patient states that she had a painful right ear 3 days prior to admission which progressed to red rash over her face which was seen and treated with a topical ointment and then progressed just prior to presentation for this admission with swelling and pain worsening over the face. She is tender over the mastoid area and CT of the head with attention to the mastoid area will be performed in the morning. She is on IV antibiotic therapy which may be. Follow-up clinically. (4) Thrombocytopenia: Status: Chronic Assessment and plan: Chronic and stable with this limits use of Lovenox and heparin for anticoagulation with her atrial fibrillation. Family is agreeable to initiating Eliquis 5 mg twice daily. She is on aspirin for cardiac disease and this will be continued watching closely for bleeds: With patient having chronic anemia. She is on supplements. She also has chronic clinical bowel disease which may be associated with her thrombocytopenia. PT/INR will be checked. (5) Inflammatory bowel disease: Status: Chronic Assessment and plan: On medical therapy and seen at [facility]. Continue outpatient medical therapy and monitoring abdominal labs. (6) Vascular dementia: Status: Chronic Assessment and plan: Stable but with some anxiety with outpatient medicine to be continued the same. She does chronically lives at home with her younger son. She has very good family support. She at times appears to have fairly normal memory but wanders in conversation. Qualifiers: Dementia behavioral or psychological symptom: with anxiety Dementia severity: moderate Qualified Code(s): F01.B4 - Vascular dementia, moderate, with anxiety (7) Essential hypertension: Status: Chronic Assessment and plan: Currently on metoprolol which will be adjusted for rate control watching for hypotension. Patient is on gentle IV fluid resuscitation watching closely for fluid overload. (8) Elevated liver function tests: Status: Chronic Assessment and plan: Chronic and appears stable. Check PT/INR. (9) Hypothyroidism: Status: Chronic Assessment and plan: Stable on levothyroxine with TSH normal. This does not appear to be contributing to her new dysrhythmia. Qualifiers: Hypothyroidism type: acquired Qualified Code(s): E03.9 - Hypothyroidism, unspecified (10) Chronic anemia: Status: Chronic Assessment and plan: This appears stable and has associated thrombocytopenia the patient on multiple supplements which will be continued. (11) Depression: Status: Chronic Assessment and plan: Continue outpatient medical therapy. Qualifiers: Depression Type: reactive depression Qualified Code(s): F32.9 - Major depressive disorder, single episode, unspecified History of Present Illness History of Present Illness Chief Complaint: Sudden onset shortness of breath with fever for 1 day Narrative: This is an 83-year-old female patient who lives at home with her younger son presenting to the outpatient clinic today with fever for about 1 day and sudden onset of shortness of breath. 3 days prior to presentation the patient did have a red rash over her face with ear pain on the right which began to have increased pain and swelling being treated with topical treatment as outpatient prior with onset of redness progressing over the to the face from the ear where she states it started. She does have dementia and is a poor historian with the son not giving details of this history. Patient seems to indicate that the right facial rash with swelling worsening and pain was occurring just prior to her sudden onset of fever and shortness of breath. She was seen in the ED and found to have atrial fibrillation with rapid ventricular response prompting further evaluation with CT scan of the chest with did not reveal PE but question of right lower lobe pneumonia versus atelectasis. She did not have an elevated WBC but did have thrombocytopenia which appears chronic with chronic elevation of the LFTs possibly associate with her chronic inflammatory bowel disease on treatment. She has not an alcohol drinker. She is not severely overweight or diabetic. She does not carry diagnosis of GARCIA. Associated symptoms were weakness and lethargy. The patient's dementia appears to be fairly stable and she is very talkative when interviewed alone. He is having no acute GI symptoms or urinary symptoms. Her cough is nonproductive with no hemoptysis. She was febrile in the ED with borderline low blood pressures the diagnosis of hypertension chronically on metoprolol. She had no other findings consistent with sepsis syndrome. She responded to gentle IV fluid resuscitation and heart rate did drop to just above 100 with a low-dose of diltiazem at 7.5 mg IV. The patient currently is on metoprolol succinate at home at 50 mg daily. Her meds are supervised by her younger son. I did discuss the case with her older son and his and they did confirm that she is a DNR/DNI and give a history consistent with the above discussion except for the patient's description of the facial rash possibly worsening as with cellulitis over the last couple days with presentation today with fever and no significant infiltrate in the lung to explain the fever. I also discussed initiating anticoagulation with patient only on a baby aspirin and the limitations of her thrombocytopenia with Lovenox heparin while inpatient. The son agreed with initiating Eliquis after reviewing risk and benefit. Patient was admitted for monitoring of heart rate control with split dosing of lower dose metoprolol to tartrate orally and echocardiogram in the morning. Patient's blood pressure continued to be borderline low with a MAP above 65 and on gentle IV hydration. She does not appear to be fluid overloaded though she does have an elevated BNP and diuresis will not be initiated watching closely on IV hydration. Lasix can be given during the night if she has increased shortness of breath if her blood pressure is stable. IV fluids can also be decreased or stopped if needed to avoid Lasix and worsening low blood pressure. She was initiated on IV antibiotic therapy for possible right lower lobe pneumonia with her presentation fever and shortness of breath which will be continued with cefepime and doxycycline. This should also cover possible cellulitis of the right face with her red swollen rash over the right ear and temporal area extending to the forehead and jaw. Urine culture will be obtained. Procalcitonin was negative and viral screens were negative upon admission. As stated, she is a DNR/DNI. Review of Systems Narrative: 13 point review of systems otherwise unobtainable or stable as per son's history. [facility] All Active Problems (Updated 07/30/23 @ 01:42 by Brent Carr) Cellulitis, face (Acute) Elevated liver function tests (Chronic) Thrombocytopenia (Chronic) Pneumonia (Acute) Atrial fibrillation with rapid ventricular response (Acute) Urinary incontinence (Acute) Inflammatory bowel disease (Chronic) [facility] 04/17/23 Metatarsalgia of left foot (Acute) Corns and callosities (Acute) Nail dystrophy (Acute) Vascular dementia (Chronic) Delusions (Acute) Alzheimer's dementia with agitation (Acute) Palliative care patient (Acute) Dementia (Chronic) Essential hypertension (Chronic) Onychomycosis (Acute ~06/2021) Iron deficiency anemia (Acute) Managed by [facility]. 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) Chronic anemia (Chronic 09/04/17) IBD-Crohns Osteoporosis (Chronic 03/27/16) Migraines (Chronic 09/04/17) Hypothyroidism (Chronic 09/04/17) Depression (Chronic 09/12/17) Crohn's disease with complication (Chronic 09/04/17) Crohn's colitis and ileitis, mild-[facility] Note 08/01/22 B12 deficiency (Chronic 09/04/17) Anxiety (Chronic 09/04/17) Medical History Visual hallucinations Sensorineural hearing loss, bilateral Fall Deep vein thrombosis (DVT) (09/12/17) Mild intermittent asthma without complication (09/12/17) Posterior staphyloma [facility] report dated 04/17/18. Brent Castaneda, OD Astigmatism of both eyes [facility] report dated 04/17/18. Brent Castaneda, OD Grade 1 hypertensive retinopathy Meibomian gland dysfunction (MGD) [facility] exam dated 04/17/18. Brent Castaneda, OD Neck pain (09/04/17) Fatigue (09/04/17) Exacerbation of Crohn's disease Microcytic anemia Nonspecific ST-T wave electrocardiographic changes Dehydration Hypomagnesemia Asthma exacerbation Acute bronchitis Influenza A Surgical History H/O colonoscopy (04/07/18) [facility]sterectomy, Laproscopic Hiatal Hernia repair (09/11/17) Repair of umbilical hernia (09/11/17) Social History Smoking/Tobacco Use Status: Never Smoking risk assessment performed?: Yes Alcohol Intake: never Substance use type: does not use Household members: children Housing: apartment Number of Children: 3 Current gender identity: female What is your relationship status?: Panel score (0-1 are the most socially isolated patients): 0 What type of physical activity do you participate in: none Seatbelt use: always Water heater temp set <120 deg: Yes Working smoke detector in home: Yes Fire extinguisher in home: Yes Carbon monox detector in home: Yes Firearms in home: No Do you feel safe at home: Yes Do you feel safe in your relationship?: Yes History History Para 3 Hx # Term Pregnancies Multiple births Hx # Pregnancies Ectopic pregnancies AB induced Hx Number of Living Children AB spontaneous Meds Allergies and Home Medications Allergies Allergy/AdvReac Type Severity Reaction Status Date / Time acetaminophen AdvReac Intermediate Headache Verified 07/29/23 18:26 ibuprofen AdvReac Intermediate Headache Verified 07/29/23 18:26 lactose intolerant AdvReac Intermediate cramps, Uncoded 07/29/23 18:26 diarrhea Home Medications Medication Instructions Recorded Confirmed Type aspirin 81 mg tablet 81 mg PO DAILY 09/24/18 07/29/23 History balsalazide 750 mg capsule See Rx Instructions PO TID 05/14/19 07/29/23 History iron sucrose 200 mg iron/10 mL 300 mg IV [id number] 10/26/21 07/29/23 History intravenous solution (Venofer) atorvastatin 20 mg tablet 20 mg PO DAILY #90 tabs 09/24/22 07/29/23 Rx pantoprazole 40 mg tablet,delayed 40 mg PO BID #180 tabs 09/24/22 07/29/23 Rx release syringe with cannula,disposabl 17 #3 SYRGS 10/22/22 07/25/23 Rx x 3 mL (BD Blunt Plastic Cannula) levothyroxine 50 mcg tablet 50 mcg PO DAILY #90 tabs 12/10/22 07/29/23 Rx mirtazapine 7.5 mg tablet 7.5 mg PO QHS #90 tabs 12/13/22 07/29/23 Rx urea 45 % topical gel (ANIYAH-Urea) 1 applic topical BID #28 mL 03/07/23 07/29/23 Rx gabapentin 100 mg capsule 100 mg PO TID #270 caps 04/30/23 07/29/23 Rx ketoconazole 2 % topical cream 1 applic topical DAILY 6 months 05/16/23 07/29/23 Rx #60 grams metoprolol succinate 50 mg See Rx Instructions .Route 06/10/23 07/29/23 Rx tablet,extended release 24 hr .COMPLEX #90 tabs cyanocobalamin (vitamin B-12) 1,000 mcg IM monthly #3 vials 06/19/23 07/29/23 Rx 1,000 mcg/mL injection solution quetiapine 25 mg tablet See Rx Instructions PO .COMPLEX 06/27/23 07/29/23 Rx #135 tabs Size M incontinence briefs #40 ea 07/25/23 07/25/23 Rx galcanezumab-gnlm 120 mg/mL 120 mg subcut QMONTH #3 mL 07/25/23 07/29/23 Rx subcutaneous pen injector (Emgality Pen) triamcinolone acetonide 0.1 % 1 applic topical BID PRN R ear & 07/25/23 07/29/23 Rx topical cream hand dermatitis #15 grams Exam Narrative Exam Narrative: General: Patient appears appropriate for age, she is alert and oriented at least to person and place. She is in no acute distress and very talkative with slight pressured speech. HEENT: Normocephalic, eyes with pupils equal react to light symmetrically, extraocular move intact and sclera anicteric. Face has coarsened features with moderate swelling with sharp borders of the rash over the right face including the temporal area extending onto the forehead and over the mandible area with tenderness behind the right ear without fluctuation. Oropharynx with slightly dry mucosa and poor dentition. Neck: Supple without JVD. Back: Kyphotic without CVA tenderness. Lungs: Decreased aeration over right base with occasional coarse crackle, otherwise fair aeration over lung [place]ado without focalizing rales or rhonchi. No respiratory wheeze. Breast: Exam deferred. Heart: Irregularly irregular rhythm with tachycardic rate intermittently. No appreciable murmur or gallop. Abdomen: Obese contour, soft nontender to palpation with no palpable hepatosplenomegaly. Bowel sounds positive in all quadrants. Genitalia/rectal: Exam deferred. Extremities: Nonpitting edema both lower extremities with PUNEET stockings in place. Good capillary refill. No clubbing or cyanosis. Skin: Normal color, warm and dry with rough texture over sun exposed areas with actinic changes. No bruising. Neuro: Cranial nerves II through XII gross intact, no focal motor deficits and no tremor. Psych: Slightly pressured speech but normal affect and mood otherwise. He is very talkative. No abnormal thought processes. Remote memory appears to be grossly intact with question of some short-term memory loss with patient wandering in conversation. Results Imaging Imaging Studies: Exam: CTA Chest With Contrast Exam date and time: 07/29/2023 8:14 PM Age: 83 years old Clinical indication: Abnormal findings; Abnormal diagnostic tests; Shortness of breath and other: Tachycardia, Elevated d-dimer COMPARISON: CT CHEST/ABD/PEL W 09/15/2018 5:36 PM FINDINGS: Pulmonary arteries: No acute pulmonary emboli. Aorta: Atherosclerotic disease of the thoracic aorta, without aneurysm or dissection. Lungs: Minimal left basilar atelectasis or scarring. Pleural spaces: Small right pleural effusion with associated right basilar atelectasis/scarring. Heart: Unremarkable. No cardiomegaly. No pericardial effusion. Coronary arteries: Mild three-vessel coronary artery atherosclerotic disease. Lymph nodes: Few small lymph nodes within the mediastinum, likely reactive, but nonspecific. Diaphragm: Small-sized hiatal hernia. Eventration of the right anterior hemidiaphragm. Bones/joints: Multilevel thoracic spine degenerative disc space narrowing and osteophyte formation. Soft tissues: Unremarkable. IMPRESSION: No acute pulmonary emboli. Labs 07/29/23 18:50 07/29/23 18:50 Labs: Laboratory Results - last 24 hr 07/29/23 18:50 WBC 7.42 RBC 3.60 L Hgb 11.3 Hct 34.6 L MCV 96 H MCH 31.4 MCHC 32.7 RDW 14.5 Plt Count 95 L MPV 11.4 H Immature Gran % 0.4 Neutrophils % 86.8 Lymphocytes % 6.5 Monocytes % 5.5 Eosinophils % 0.3 Basophils % 0.5 Nucleated RBC % 0.0 Absolute Neutrophils 6.44 Absolute Lymphocytes 0.48 L Absolute Monocytes 0.41 Absolute Eosinophils 0.02 Absolute Basophils 0.04 RBC Morphology Normal D-Dimer 2023 H VBG pH 7.40 VBG pCO2 42 VBG pO2 33 VBG HCO3 26 VBG Total CO2 24 VBG O2 Saturation 65 VBG Base Excess 2 VBG Lactate 1.3 Sodium 140 Potassium 3.7 Chloride 106 Carbon Dioxide 26.2 Anion Gap 7.8 BUN 13 Creatinine 0.8 Est GFR (CKD-EPI 2020) 72.61 Glucose 81 Calcium 8.9 Magnesium 1.8 Total Bilirubin 1.3 H AST 45 H ALT 20 Alkaline Phosphatase 172 H Troponin I < 50 C-Reactive Protein 1.29 H NT-Pro-B Natriuret Pep 3742 H Total Protein 7.3 Albumin 3.3 L Procalcitonin < 0.1 Last Vital Signs Temp 37.9 C H 07/29/23 17:46 Pulse 98 H 07/29/23 21:45 Resp 17 07/29/23 21:50 BP 103/59 L 07/29/23 21:45 Pulse Ox 95 07/29/23 21:50 Time Spent Time spent with Patient: >75 minutes Time was spent: preparing to see the patient(eg.review tests), obtaining and/or reviewing separately otained hiistory, ordering medications,tests, procedures, referring, communicating with other health early breastfeeding care specialist, indepentently interpreting results, counseling the patient and care coordination
[2023-07-29 23:10] LABS: TSH (W/Ref FT4) 1.24 uIU/mL (0.36-3.74)
[2023-07-30] VITALS (11 sets, daily range): BP systolic 117–162; BP diastolic 69–105; PULSE 88–120; RESP 15–18; TEMP 36.2–37.7; O2SAT 95–98
[2023-07-30 00:39] LABS: Bilirubin Negative (Negative); Blood Negative (Negative); Clarity Sl Cloudy (Clear); Glucose Negative (Negative); Ketones Negative (Negative); Leukocyte Esterase Trace (Negative); Nitrite Positive (Negative); Specific Gravity <= 1.005 (1.005-1.025); Urobilinogen 0.2 mg/dL (Up to 0.2)
[2023-07-30 00:49] LABS: Bacteria Moderate HPF (Negative); C & S Indicated? No/Sq. Contamination; Crystals Negative HPF (Negative); Epithelial Cells Moderate HPF (Negative); Mucus Negative (Negative); RBC 0-2 HPF (0-2)
[2023-07-30] MEDS: Normal Saline 1,000 ML 125 ML IV ×2 (01:09→10:41)
[2023-07-30] MEDS: Apixaban 5 MG TAB PO ×3 (01:09→19:34)
[2023-07-30] MEDS: QUEtiapine 25 MG TAB PO (01:41)
[2023-07-30] MEDS: DOXYCYCLINE 100 MG in Normal Saline 100 ML IVPB ×2 (01:41→15:40)
[2023-07-30] MEDS: Metoprolol 12.5 MG TAB PO (05:46)
[2023-07-30] MEDS: Levothyroxine 50 MCG TAB PO (05:46)
[2023-07-30] MEDS: CEFEPIME 1 GM in Normal Saline 50 ML IVPB ×3 (07:04→23:23)
[2023-07-30 07:09] LABS: HCT 28.7 % (36.0-46.0); HGB 9.3 g/dL (11.2-15.7); MCH 31.2 pg (27.0-33.0); MCHC 32.4 % (32.0-36.0); MCV 96 fL (80-95); MPV 11.1 fL (8.0-11.0); RBC 2.98 10^6/uL (3.93-5.22); RDW 14.6 % (11.7-14.6); RDW-SD 51.2 fL; WBC 3.01 10^3/uL (4.4-10.8)
[2023-07-30 07:19] LABS: INR 1.3 (0.9-1.1); Prothrombin Time 12.5 sec (9.1-11.1)
[2023-07-30 07:22] LABS: ALT 18 U/L (14-59); AST 29 U/L (15-37); Albumin 2.6 g/dL (3.4-5.0); Alkaline Phosphatase 133 U/L (46-116); Anion Gap 10.9 mmol/L (3-11); BUN 12 mg/dL (7-18); Bilirubin, Total 1.2 mg/dL (0.2-1.0); CO2 23.1 mmol/L (21.0-32.0); CREATININE 0.7 mg/dL (0.55-1.02); Calcium 8.1 mg/dL (8.5-10.1); Chloride 111 mmol/L (98-107); Estimated GFR 85.23 (mL/min/1.73m2); Glucose 88 mg/dL (74-106); Magnesium 1.8 mg/dL (1.8-2.4); Potassium 3.5 mmol/L (3.5-5.1); Sodium 145 mmol/L (136-145)
[2023-07-30 07:40] LABS: Platelet Count 64 10^3/uL (130-400)
[2023-07-30 09:51] LABS: COVID-19 PCR Negative (Negative); Influenza A PCR Negative (Negative); Influenza B PCR Negative (Negative); RSV PCR Negative (Negative); Source Nasopharynx
[2023-07-30] MEDS: Pantoprazole 40 MG TABCR PO ×2 (10:34→19:32)
[2023-07-30] MEDS: QUEtiapine 25 MG TAB 12.5 MG PO (10:34)
[2023-07-30] MEDS: Gabapentin 100 MG CAP PO ×3 (10:34→19:34)
[2023-07-30] MEDS: Atorvastatin 20 MG TAB PO (10:34)
--- NOTE | 2023-07-30 11:48 | W.ED.FU ---
Follow Up Plan: over read by radiologist today states right pleural effusion not commented on by vrad overnight, will relay this to the hospitalist as patient was admitted
[2023-07-30] MEDS: Metoprolol 12.5 MG TAB 25 MG PO ×3 (12:04→23:22)
[2023-07-30] MEDS: Acetaminophen 325 MG TAB PO (12:09)
--- NOTE | 2023-07-30 13:08 | PHA.REVIEW2 ---
Pharmacy Admission Review Admission Clinical Review Admission Pharmacy Review: (Updated 07/30/23 @ 01:42 by Brent Carr) Cellulitis, face (Acute) Pneumonia (Acute) Atrial fibrillation with rapid ventricular response (Acute) acetaminophen Adverse Reaction (Intermediate, Verified 07/29/23 18:26) Headache ibuprofen Adverse Reaction (Intermediate, Verified 07/29/23 18:26) Headache lactose intolerant Adverse Reaction (Intermediate, Uncoded 07/29/23 18:26) cramps, diarrhea Resuscitation Status DNR/DNI Height 5 ft 1 in Weight 65.3 kg Comments Comments/Follow Ups: Monitor labs and renal function. Adjust medications as necessary. Watch for blood culture results. Pharmacy Admission Review Renal Dosing Renal Dosing: BUN 12 mg/dL (7-18) 07/30/23 06:35 Creatinine 0.7 mg/dL (0.55-1.02) 07/30/23 06:35 Medications needing adjustments: Reviewed (CrCl 36.23 mL/min, current orders okay) Anticoagulation Anticoagulation: Hgb 9.3 g/dL (11.2-15.7) L D 07/30/23 06:35 Hct 28.7 % (36.0-46.0) L 07/30/23 06:35 Plt Count 64 10^3/uL (130-400) L 07/30/23 06:35 INR 1.3 (0.9-1.1) H 07/30/23 06:35 Creatinine 0.7 mg/dL (0.55-1.02) 07/30/23 06:35 DVT Prophylaxis: Reviewed Medications: Apixaban (5mg BID) Relevant Labs Relevant Labs: Sodium 145 mmol/L (136-145) 07/30/23 06:35 Potassium 3.5 mmol/L (3.5-5.1) 07/30/23 06:35 Chloride 111 mmol/L (98-107) H 07/30/23 06:35 Magnesium 1.8 mg/dL (1.8-2.4) 07/30/23 06:35 C-Reactive Protein 1.29 mg/dL (0.0-0.3) H 07/29/23 18:50 Electrolytes, C-Reactive P, ESR: Reviewed Cardiac Review Cardiac Review: Troponin I < 50 ng/L (<or=60) 07/29/23 18:50 NT-Pro-B Natriuret Pep 3742 pg/mL (<300) H 07/29/23 18:50 BP, HR, EF%: Reviewed (BP WNL, HR 108) QTc Review QTc: Reviewed (440 07/29/23) IV to PO Switch IV Medications: Reviewed Home Meds Home Med List reviewed: Intervened Relevent Home Meds Not ordered & why?: Order pending for cyanocobalamin IM monthly injection. Waiting on nursing to confirm with patient when their monthly dose is due. Current Meds Current Medication Order Review: Reviewed Comments: Metoprolol increased by provider to 25mg q6h Pharmacy Antibiotic Review Relevant Labs: Relevant Labs 07/29/23 18:50 C-Reactive Protein 1.29 H Procalcitonin < 0.1 Pharmacy Antibiotic Activity: C/S review and Reviewed, no change Comments: Current regimen cefepime 1g q8h and doxycycline 100mg q12h for possible pneumonia or facial cellulitis (pending scans per morning meeting). Blood cultures currently pending. Comments Comments/Follow Ups: Monitor labs and renal function. Adjust medications as necessary. Watch for blood culture results.
[2023-07-30] MEDS: Ketoconazole 2% CREAM 15 GM TUBE TP (13:14)
[2023-07-30] MEDS: Omnipaque 350 MG/ML 100 ML BTL IJ (14:07)
[2023-07-30] MEDS: Normal Saline - Diluent 50 ML VIAL IJ (14:08)
--- NOTE | 2023-07-30 14:10 | DI.CT_ITS ---
Exam(s) CT FACIAL W EXAM: CT FACIAL W CLINICAL HISTORY: preseptal cellulitis. TECHNIQUE: Imaging Protocol: Axial computed tomography images with coronal and sagittal reformatted images were created and reviewed. No IV contrast COMPARISON: No exams were available for comparison FINDINGS: MAXILLOFACIAL CT SCAN WITH IV CONTRAST: There no facial fractures and no fluid in the paranasal sinuses and mastoid air cells. There is skin thickening over the right orbit/eyelid area.. No abnormal density in the orbit itself nor within the retro conal fat. Abnormalities are periorbital/preseptal. There is no evidence of di ffuse intraorbital cellulitis nor intra orbital abscess. No evidence of subperiosteal abscess. Extraocular muscles are symmetrical and appear unremarkable. Optic nerves appear unremarkable. There is a minimal mucosal thickening in the right maxillary sinus. There are no fluid levels in the paranasal sinuses. IMPRESSION: Findings consistent with preseptal/periorbital cellulitis. No evidence of obvious orbital extension. RADIATION DOSE DELIVERED: 324.49mGy.cm Total DLP DATA REPOSITORY: All CT scans at this facility are submitted to the National Radiology Data Registry (NRDR) Dose Index Registry (DIR) with the [employer] (A[employer]). RADIATION OPTIMIZATION: All CT scans at this facility use at least one of these dose optimization te chniques: automated exposure control; mA and/or kV adjustment per patient size (includes targeted exa ms where dose is matched to clinical indication); or iterative reconstruction.
[2023-07-30] MEDS: Normal Saline Flush 10 ML SYR IVP ×2 (14:33→19:34)
--- NOTE | 2023-07-30 16:49 | CHAPLAIN ---
Maegan was resting in bed when I visited. She told me that she lives locally and two of her sons are here. She used to live in [facility] and after her she moved her to be closer to her sons, who sisters who are from this area. 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 She attends the [employer] here and gave me permission to let the yazidi know she is here. Fabiano from the [employer] [facility] [employer] visited Maegan this afternoon.
--- NOTE | 2023-07-30 19:00 | INITIAL_ITS ---
Date of service: 07/30/23 Time of Service: 19:01 Care Management Initial Assmt Initial Assessment REASON FOR HOSPITALIZATION:: Afib with RVR, PNA PREVIOUS FUNCTIONAL STATUS/SOCIAL/FAMILY SUPPORTS:: Maegan lives in [facility] with her son, Gus. She has two other sons who live nearby. Her son Bryan brings her to appointments, and her daughter in law Sushila checks in on her on Mondays and Fridays. She has a caregiver, Joshua, who helps her on Tuesdays and for a few hours each day, paid through [facility]. She reports that her family is very supportive. She receives MOW. She requires assistance with personal care. CURRENT FUNCTIONAL STATUS:: Maegan was sitting up in her chair eating lunch when CM met with her. She was pleasant and engaged well in conversation, stating that she is doing well today. She discussed her family and how supportive they are for her. Per report, she has a rash on her face which may be cellulitis, and is being treated with IV antibiotic therapy. Her Afib is being closely monitored. Throughout the day, she had many visitors. CM will continue to follow. ADVANCE DIRECTIVES:: COLST on file Has patient been provided with info about the portal/API?: Yes Did the patient sign up for the portal?: Yes CODE STATUS:: DNR/DNI INSURANCE COVERAGE / FINANCIAL ISSUES:: MCR. MCR supplemental. TERESA. CURRENT HOME/COMMUNITY SERVICES/EQUIPMENT:: caregivers 2x/week PRIMARY CARE PHYSICIAN:: Elizabeth Hathaway POTENTIAL DISCHARGE NEEDS:: Evaluations for further needs, follow up appointments. PATIENT/FAMILY EDUCATION NEEDS:: Review discharge instructions and limitations, discussion of self care needs including ask me three. ANTICIPATED BARRIERS TO DISCHARGE:: None. TRANSPORTATION:: via private vehicle by family. PLAN:: Anticipate Maegan will return home once medically cleared. Her son will drive her home via private vehicle. She will follow up with her PCP and discharge plan of care. CM will continue to follow. PFSH All Active Problems (Updated 07/30/23 @ 01:42 by Brent Carr) Cellulitis, face (Acute) Elevated liver function tests (Chronic) Thrombocytopenia (Chronic) Pneumonia (Acute) Atrial fibrillation with rapid ventricular response (Acute) Urinary incontinence (Acute) Inflammatory bowel disease (Chronic) [facility] Note 9/27/23 Metatarsalgia of left foot (Acute) Corns and callosities (Acute) Nail dystrophy (Acute) Vascular dementia (Chronic) Delusions (Acute) Alzheimer's dementia with agitation (Acute) Palliative care patient (Acute) Dementia (Chronic) Essential hypertension (Chronic) Onychomycosis (Acute ~06/2021) Iron deficiency anemia (Acute) Managed by [facility] 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) Chronic anemia (Chronic 09/04/17) IBD-Crohns Osteoporosis (Chronic 03/27/16) Migraines (Chronic 09/04/17) Hypothyroidism (Chronic 09/04/17) Depression (Chronic 09/12/17) Crohn's disease with complication (Chronic 09/04/17) Crohn's colitis and ileitis, mild-[facility] Note 08/01/22 B12 deficiency (Chronic 09/04/17) Anxiety (Chronic 09/04/17) Medical History Visual hallucinations Sensorineural hearing loss, bilateral Fall Deep vein thrombosis (DVT) (09/12/17) Mild intermittent asthma without complication (09/12/17) Posterior staphyloma [facility] report dated 04/17/18. Brent Castaneda, OD Astigmatism of both eyes [facility] report dated 04/17/18. Brent Castaneda, OD Grade 1 hypertensive retinopathy Meibomian gland dysfunction (MGD) [facility] exam dated 04/17/18. Brent Castaneda, OD Neck pain (09/04/17) Fatigue (09/04/17) Exacerbation of Crohn's disease Microcytic anemia Nonspecific ST-T wave electrocardiographic changes Dehydration Hypomagnesemia Asthma exacerbation Acute bronchitis Influenza A Surgical History H/O colonoscopy (04/07/18) [facility] Hysterectomy, Laproscopic Hiatal Hernia repair (09/11/17) Repair of umbilical hernia (09/11/17) Social History Smoking/Tobacco Use Status: Never Smoking risk assessment performed?: Yes Alcohol Intake: never Substance use type: does not use Household members: children Housing: apartment Number of Children: 3 Current gender identity: female What is your relationship status?: Panel score (0-1 are the most socially isolated patients): 0 What type of physical activity do you participate in: none Seatbelt use: always Water heater temp set <120 deg: Yes Working smoke detector in home: Yes Fire extinguisher in home: Yes Carbon monox detector in home: Yes Firearms in home: No Do you feel safe at home: Yes Do you feel safe in your relationship?: Yes History History Para 3 Hx # Term Pregnancies Multiple births Hx # Pregnancies Ectopic pregnancies AB induced Hx Number of Living Children AB spontaneous SDOH(Care Management) Screening Will the Patient Participate in the Screening?: Yes Do you worry about having a steady place to live?: no Problems where you live: no known problems In the past 12 months, have you had to go without electric, gas, oil or water in your home?: no Have you or anyone in your house had to go without enough food to eat?: no Has lack of transportation kept you from medical appointments or from doing things needed for daily living?: no Has anyone in your support network made you feel unsafe for any reason?: no
[2023-07-30] MEDS: Metoprolol 5 MG/5 ML VIAL IVP (19:33)
--- NOTE | 2023-07-30 19:47 | W.PM.PROGNOT ---
Date of Service Date of service: 07/30/23 Time of Service: 19:30 Assessment and Plan Assessment and plan (1) Sepsis: Status: Acute Assessment and plan: Sources: preseptal cellulitis + / - pneumonia, present on admission. Antibiotics adjusted to vancomycin/cefepime. Await blood cultures. Trend CRP and procalcitonin. IVF d/c'ed. (2) Preseptal cellulitis: Status: Acute Assessment and plan: As above (3) Pneumonia: Start date: 07/29/23 Status: Suspected Assessment and plan: Atelectasis vs PNA. Above abx. Trial xopenex for wheezing. Qualifiers: Pneumonia type: due to unspecified organism Laterality: right Lung location: lower lobe of lung Qualified Code(s): J18.9 - Pneumonia, unspecified organism (4) Atrial fibrillation with rapid ventricular response: Start date: 07/29/23 Status: Acute Assessment and plan: INcrease beta blockers. Await echo Placed on apixaban on admission. (5) Aspiration into airway: Status: Acute Assessment and plan: Obtain a swallow eval and a barium swallow. It appears that the patient cleared the foreign bodies, but we should watch for aspiration pneumonitis. (6) Pleural effusion, right: Status: Acute Assessment and plan: D/c IVF. Start diuretics. Consider thoracenthesis. (7) Inflammatory bowel disease: Status: Chronic Assessment and plan: OContinue outpatient medical therapy. Followed by [facility]. (8) Vascular dementia: Status: Chronic Assessment and plan: Monitor for behaviors. Qualifiers: Dementia severity: moderate Dementia behavioral or psychological symptom: with anxiety Qualified Code(s): F01.B4 - Vascular dementia, moderate, with anxiety (9) Essential hypertension: Status: Chronic Assessment and plan: Monitor with an increased dose of metoprolol. (10) Hypothyroidism: Status: Chronic Assessment and plan: Continue levothyroxine. Qualifiers: Hypothyroidism type: acquired Qualified Code(s): E03.9 - Hypothyroidism, unspecified (11) Depression: Status: Chronic Assessment and plan: Continue mirtazapine and quetiapine. Qualifiers: Depression Type: reactive depression Qualified Code(s): F32.9 - Major depressive disorder, single episode, unspecified (12) Cirrhosis: Status: Acute Assessment and plan: New diagnosis. LIkely contributing to the thrombocytopenia. Obtain hepatitis studies. (13) Drug eruption: Status: Acute Assessment and plan: Start topical hydrocortisone. (14) Pancytopenia: Status: Acute Assessment and plan: Check b12/folate/iron studies. (15) DVT prophylaxis: Status: Acute Assessment and plan: On apixaban (for afib) (16) Discharge planning issues: Status: Acute Assessment and plan: DNR/DNI C/s PT, speech, palliative care. Subjective Subjective Interval history since last seen: Ms Albright states that the right side of her face is sore and that she is short of breath. She is not sure when the wheezing started. She denies dizziness, CP, palpitations, nausea. Her back and torso are not itchy. She has remained in rapid Afib, initially with rates in 110s, now in 120s. Had a choking spell today while eating mac and cheese - was able to cough up 3 unchewed noodles. She felt like the were stuck at the bottom of the throat, per nursing, though the patient later tells me that it felt like it was in her chest. Exam Narrative Exam Narrative: General: A very pleasant elderly female who is forgetful, A&Ox2, mildly anxious HEENT: EOMI, MMM, does have evidence of erythema on R side of the face extending through the forehead to the left. Nasal ridge and eyes are not involved. L cheek is not involved. Heart: irregularly irregular rhythm, tachycardic Lungs: Diminished at B bases, Abdomen: soft, nontender, nondistended Extremities: +1 edema BLEs Skin: macular rash, almost confluent on the R side of the back, less so on the torso, c/w drug reaction rash Objective Last Vital Signs Temp 37.1 C 07/30/23 18:12 Pulse 120 H 07/30/23 19:33 Resp 18 07/30/23 18:12 BP 162/93 H 07/30/23 19:33 Pulse Ox 95 07/30/23 18:12 Laboratory Results - last 24 hr 07/29/23 07/30/23 07/30/23 18:50 00:08 06:35 WBC 3.01 L RBC 2.98 L Hgb 9.3 L D Hct 28.7 L MCV 96 H MCH 31.2 MCHC 32.4 RDW 14.6 Plt Count 64 L MPV 11.1 H PT 12.5 H INR 1.3 H Sodium 145 Potassium 3.5 Chloride 111 H Carbon Dioxide 23.1 Anion Gap 10.9 BUN 12 Creatinine 0.7 Est GFR (CKD-EPI 2020) 85.23 Glucose 88 Calcium 8.1 L Magnesium 1.8 Total Bilirubin 1.2 H AST 29 ALT 18 Alkaline Phosphatase 133 H Total Protein 6.0 L Albumin 2.6 L TSH 1.24 Urine Color Yellow Urine Clarity Sl Cloudy Urine pH 6.0 Ur Specific [place] <= 1.005 Urine Protein Negative Urine Ketones Negative Urine Blood Negative Urine Nitrite Positive H Urine Bilirubin Negative Urine Urobilinogen 0.2 Ur Leukocyte Esterase Trace H Urine RBC 0-2 Urine WBC 10-20 H Ur Epithelial Cells Moderate Urine Crystals Negative Urine Bacteria Moderate Urine Mucus Negative Ur Culture Indicated? No/Sq. Contamination Urine Glucose Negative COVID-19 Source SARS-CoV-2 (PCR) Influenza Type A (PCR) Influenza Type B (PCR) RSV (PCR) 07/30/23 08:01 WBC RBC Hgb Hct MCV MCH MCHC RDW Plt Count MPV PT INR Sodium Potassium Chloride Carbon Dioxide Anion Gap BUN Creatinine Est GFR (CKD-EPI 2020) Glucose Calcium Magnesium Total Bilirubin AST ALT Alkaline Phosphatase Total Protein Albumin TSH Urine Color Urine Clarity Urine pH Ur Specific [place] Urine Protein Urine Ketones Urine Blood Urine Nitrite Urine Bilirubin Urine Urobilinogen Ur Leukocyte Esterase Urine RBC Urine WBC Ur Epithelial Cells Urine Crystals Urine Bacteria Urine Mucus Ur Culture Indicated? Urine Glucose COVID-19 Source Nasopharynx SARS-CoV-2 (PCR) Negative Influenza Type A (PCR) Negative Influenza Type B (PCR) Negative RSV (PCR) Negative Time Spent with Patient Time Spent with Patient: 35-49 minutes Time was spent: preparing to see the patient(eg.review tests), obtaining and/or reviewing separately otained hiistory, ordering medications,tests, procedures, referring, communicating with other health care tech, indepentently interpreting results, counseling the patient and care coordination
[2023-07-30] MEDS: Furosemide 20 MG/2 ML VIAL IVP (20:06)
[2023-07-30] MEDS: Hydrocortisone 1% CR 30 GM TUBE TP (21:29)
[2023-07-30] MEDS: VANCOMYCIN/WATER (PEG) 1.5 GM/300 ML BAG IVPB (21:30)
[2023-07-30] MEDS: Mirtazapine 15 MG TAB 7.5 MG PO (23:22)
[2023-07-31] VITALS (9 sets, daily range): BP systolic 121–163; BP diastolic 75–98; PULSE 80–117; RESP 16–17; TEMP 36.5–37.9; O2SAT 95–99
--- NOTE | 2023-07-31 | DI.US_ITS ---
Exam(s) US ABDOMEN EXAM: US ABDOMEN CLINICAL HISTORY: abnormal LFTs, thrombocytopenia TECHNIQUE: Ultrasound abdomen performed using standard protocol. COMPARISON: CT CT CHEST/ABD/PEL W from 09/15/[address] CHEST PE CTA from 07/29/2023 FINDINGS: ABDOMINAL AORTA AND IVC: Visualized portions normal caliber. PANCREAS: Normal where visualized. LIVER: Liver shows increased echogenicity consistent with fatty infiltration. The liver measures 12. 2 cm long. The liver has a mildly nodular contour raising the question of hepatic cirrhosis. Hepato pedal flow in the Portal Vein. GALLBLADDER:No evidence of cholelithiasis. Mild gallbladder wall thickening. No pericholecystic flui d identified. BILIARY SYSTEM: Common bile duct measures < 7 mm. No intrahepatic biliary ductal dilation. QUIÑONES'S SIGN: Negative. KIDNEYS: Kidneys are symmetric in size. No evidence of renal calculi. No evidence of hydronephrosis. There is a 1.1 cm cyst in the left kidney which appears simple. SPLEEN: The spleen is at the upper limits of normal in size. ASCITES: None seen. There are small bilateral pleural effusions. IMPRESSION: 1. The liver has a mildly nodular contour raising the question of hepatic cirrhosis. Please correlat e clinically. 2. Mild gallbladder wall thickening but no evidence of cholelithiasis or biliary ductal dilatation. 3. Small bilateral pleural effusions are noted. DATA REPOSITORY:
[2023-07-31] MEDS: DOXYCYCLINE 100 MG in Normal Saline 100 ML IVPB ×2 (01:39→16:40)
[2023-07-31] MEDS: Acetaminophen 325 MG TAB PO (01:52)
[2023-07-31] MEDS: Levothyroxine 50 MCG TAB PO (05:47)
[2023-07-31] MEDS: Metoprolol 12.5 MG TAB 25 MG PO (05:47)
[2023-07-31] MEDS: Normal Saline Flush 10 ML SYR IVP ×3 (05:48→20:19)
[2023-07-31] MEDS: CEFEPIME 1 GM in Normal Saline 50 ML IVPB ×3 (05:50→21:59)
[2023-07-31 06:55] LABS: Abs Immature Grans 0.01 10^3/uL (0.0-0.06); Absolute Basophil Count 0.05 10^3/uL (0.0-0.2); Absolute Lymphocyte Count 0.44 10^3/uL (1.2-3.4); Absolute Monocyte Count 0.23 10^3/uL (0.1-0.8); Absolute Neutrophil Count 3.53 10^3/uL (1.2-6.7); Basophils % 1.1; Eosinophils % 2.3; HCT 32.2 % (36.0-46.0); HGB 10.4 g/dL (11.2-15.7); Immature Grans % 0.2; Lymphocytes % 10.1; MCHC 32.3 % (32.0-36.0); MCV 96 fL (80-95); Monocytes % 5.3; RBC 3.36 10^6/uL (3.93-5.22); RDW 14.4 % (11.7-14.6); RDW-SD 50.5 fL; WBC 4.36 10^3/uL (4.4-10.8)
[2023-07-31 07:25] LABS: Platelet Count 88 10^3/uL (130-400)
[2023-07-31 07:26] LABS: ALT 18 U/L (14-59); AST 32 U/L (15-37); Albumin 2.8 g/dL (3.4-5.0); Alkaline Phosphatase 144 U/L (46-116); Bilirubin, Direct 0.4 mg/dL (0.0-0.2); Bilirubin, Total 1.1 mg/dL (0.2-1.0); C-Reactive Protein 2.64 mg/dL (0.0-0.3); Diff Comment Diff Reviewed; RBC Morphology Normal; Total Protein 6.6 g/dL (6.4-8.2)
[2023-07-31 07:29] LABS: Iron 30 ug/dL (50-170); Total Iron Binding Capacity 201 ug/dL (250-450); Transferrin Sat 15 % (15-50)
[2023-07-31 07:39] LABS: Anion Gap 8.4 mmol/L (3-11); BUN 16 mg/dL (7-18); CO2 22.6 mmol/L (21.0-32.0); CREATININE 0.8 mg/dL (0.55-1.02); Calcium 8.7 mg/dL (8.5-10.1); Chloride 109 mmol/L (98-107); Estimated GFR 72.61 (mL/min/1.73m2); Ferritin 719 ng/mL (8-252); Glucose 103 mg/dL (74-106); Magnesium 1.8 mg/dL (1.8-2.4); Potassium 3.8 mmol/L (3.5-5.1); Sodium 140 mmol/L (136-145)
[2023-07-31 07:54] LABS: Vitamin B12 412 pg/mL (193-986)
[2023-07-31 07:57] LABS: Folate > 20.0 ng/mL (8.6-20.0)
[2023-07-31] MEDS: Ketoconazole 2% CREAM 15 GM TUBE TP (08:45)
[2023-07-31] MEDS: Hydrocortisone 1% CR 30 GM TUBE TP ×3 (08:45→20:09)
[2023-07-31] MEDS: Barium Sulfate 700 MG TAB PO (11:26)
[2023-07-31] MEDS: Barium Sulfate 60% W/V 355 ML BTL PO (11:26)
[2023-07-31] MEDS: Barium Sulfate 98% W/W 140 ML BTL PO (11:27)
--- NOTE | 2023-07-31 11:27 | DI.RAD_ITS ---
Exam(s) RF BARIUM SWALLOW EXAM: RF BARIUM SWALLOW CLINICAL HISTORY: choking spell, question of esophageal stricture TECHNIQUE: 2D and realtime digital imaging was performed. CONTRAST MATERIAL: Oral barium contrast was administered. COMPARISON: CR XR CHEST 2V PA LATERAL from 09/16/[address] CHEST PE CTA from 07/29/2023 FINDINGS: CHEST X-RAY: The heart and pulmonary vasculature are within normal limits. There is an infiltrate see n in the right lung base. No pleural effusion or pneumothorax is present. The bones are within sandro l limits for the patient's age. ESOPHAGRAM: The esophagus is patent with no evidence for erosions, fold thickening, strictures, or ma sses. With regards to the motility, there is a normal primary stripping wave. There again seen posts urgical changes at the gastroesophageal junction. IMPRESSION: 1. No strictures are seen in the esophagus. 2. Postsurgical changes are seen at the gastroesophageal junction. 3. Right basilar infiltrate which may represent atelectasis or pneumonia. RADIATION DOSE DELIVERED: beckie Cordero=11.4 mGy
--- NOTE | 2023-07-31 11:32 | CMPROGNOTE_ITS ---
Date of service: 07/31/23 Time of Service: 11:33 Care Management Progress Note Progress Note Text Progress Note Text: S/O: Maegan was lying in bed when CM met with her. She stated that she is doing ok today, and that she was having a test all morning, so she has not yet seen the provider. Per report, she had a barium swallow test, an abdominal ultrasound, and an echo this morning. CM mentioned that Maegan had many visitors yesterday, and Maegan stated that she has a very supportive family. CM will continue to follow. A: Maegan is an 83 year old female admitted to [facility] on 07/29/23 for Afib with RVR, PNA, facial cellulitis. P: Anticipate Maegan will return home once medically cleared. Her son will drive her home via private vehicle. She will follow up with her PCP and discharge plan of care. CM will continue to follow.
--- NOTE | 2023-07-31 14:52 | W.PM.PROGNOT ---
Date of Service Date of service: 07/31/23 Time of Service: 14:52 Assessment and Plan Assessment and plan (1) Sepsis: Status: Acute Assessment and plan: Sources: preseptal cellulitis + / - pneumonia, present on admission. Antibiotics adjusted to vancomycin/cefepime. will dc doxycycline no longer showing signs of sepsis, responding to antibiotics Qualifiers: Sepsis type: sepsis due to unspecified organism Sepsis acute organ dysfunction status: without acute organ dysfunction Qualified Code(s): A41.9 - Sepsis, unspecified organism (2) Preseptal cellulitis: Status: Acute Assessment and plan: As above (3) Acute on chronic HFrEF (heart failure with reduced ejection fraction): Status: Acute Assessment and plan: Echocardiogram from today showed mildly reduced LV systolic function with an EF of 42% with global hypokinesis. RV was normal size with normal RV systolic function. RVSP 31 mm. Mild to moderate mitral regurgitation mild tricuspid regurgitation. Will continue with IV Lasix and spironolactone. Once she is euvolemic we will start Jardiance and Entresto. Joy here will be to control her atrial fibrillation rate. (4) Atrial fibrillation with rapid ventricular response: Start date: 07/29/23 Status: Acute Assessment and plan: Continue apixaban adjust her metoprolol dose up to 50 mg every 6 hours. (5) Pneumonia: Start date: 07/29/23 Status: Suspected Assessment and plan: Atelectasis vs PNA. I did bedside US of her lungs and she has no air bronchograms, she has bilateral pleural effusions and atelectasis; she has had no symptoms of sputum production Qualifiers: Laterality: right Lung location: lower lobe of lung Pneumonia type: due to unspecified organism Qualified Code(s): J18.9 - Pneumonia, unspecified organism (6) Aspiration into airway: Status: Acute Assessment and plan: Obtain a swallow eval and a barium swallow. It appears that the patient cleared the foreign bodies, but we should watch for aspiration pneumonitis. Qualifiers: Encounter type: initial encounter Qualified Code(s): T17.908A - Unspecified foreign body in respiratory tract, part unspecified causing other injury, initial encounter (7) Pleural effusion, right: Status: Acute Assessment and plan: she has bilateral pleural effusions per U.S., will continue diuretics, I have put her on iv lasix and added po spironolactone (8) Inflammatory bowel disease: Status: Chronic Assessment and plan: OContinue outpatient medical therapy. Followed by [facility]. (9) Vascular dementia: Status: Chronic Assessment and plan: Monitor for behaviors. Qualifiers: Dementia behavioral or psychological symptom: with anxiety Dementia severity: moderate Qualified Code(s): F01.B4 - Vascular dementia, moderate, with anxiety (10) Essential hypertension: Status: Chronic Assessment and plan: Monitor with an increased dose of metoprolol. (11) Hypothyroidism: Status: Chronic Assessment and plan: Continue levothyroxine. TSH is normal 1.24 Qualifiers: Hypothyroidism type: acquired Qualified Code(s): E03.9 - Hypothyroidism, unspecified (12) Depression: Status: Chronic Assessment and plan: Continue mirtazapine and quetiapine. Qualifiers: Depression Type: reactive depression Qualified Code(s): F32.9 - Major depressive disorder, single episode, unspecified (13) Cirrhosis: Status: Acute Assessment and plan: New diagnosis. LIkely contributing to the thrombocytopenia. Obtain hepatitis studies. suspect she has cardiac etiology of her cirrhosis or has GARCIA Qualifiers: Hepatic cirrhosis type: unspecified hepatic cirrhosis Ascites presence: without ascites Qualified Code(s): K74.60 - Unspecified cirrhosis of liver (14) Drug eruption: Status: Acute Assessment and plan: Start topical hydrocortisone. (15) Pancytopenia: Status: Acute Assessment and plan: Check b12/folate/iron studies. Both were normal (B12 412, folate >20), probably anemia of chronic disease; her serum iron is low at 30 but her TIBC is also low at 201 and ferritin is high at 719. (16) DVT prophylaxis: Status: Acute Assessment and plan: On apixaban (for afib) (17) Discharge planning issues: Status: Acute Assessment and plan: DNR/DNI C/s PT, speech, palliative care. Subjective Subjective Interval history since last seen: Maegan is feeling better today she is less dyspneic she denies any chest pain or pressure. She has minimal cough nonproductive. She had her modified barium swallow today. Normal showed no strictures in the esophagus she has postsurgical changes in the GE junction. She does have a right basilar infiltrate that was read as either atelectasis versus pneumonia. Exam Narrative Exam Narrative: Patient is alert and oriented x 3 sitting up in a chair talking with his family. No acute distress. Not using accessory respiratory muscles. No overt JVD Lungs basilar rales right more so than the left she has markedly diminished breath sounds left lung base. Heart is irregularly irregular slightly tachycardic did not appreciate a murmur rub Abdomen soft obese nontender Lower extremities 1+ pitting edema of her feet and pretibial surfaces. Face with slight erythema of the right side of her face but it is now more of a salmon pink-colored rather than red. It is no longer tender Objective Last Vital Signs Temp 37.4 C 07/31/23 11:55 Pulse 104 H 07/31/23 11:55 Resp 16 07/31/23 11:55 BP 150/98 H 07/31/23 11:55 Pulse Ox 97 07/31/23 11:55 Laboratory Results - last 24 hr 07/31/23 06:10 WBC 4.36 L RBC 3.36 L Hgb 10.4 L Hct 32.2 L MCV 96 H MCH 31.0 MCHC 32.3 RDW 14.4 Plt Count 88 L MPV 11.0 Immature Gran % 0.2 Neutrophils % 81.0 Lymphocytes % 10.1 Monocytes % 5.3 Eosinophils % 2.3 Basophils % 1.1 Nucleated RBC % 0.0 Absolute Neutrophils 3.53 Absolute Lymphocytes 0.44 L Absolute Monocytes 0.23 Absolute Eosinophils 0.10 Absolute Basophils 0.05 RBC Morphology Normal Sodium 140 Potassium 3.8 Chloride 109 H Carbon Dioxide 22.6 Anion Gap 8.4 BUN 16 Creatinine 0.8 Est GFR (CKD-EPI 2020) 72.61 Glucose 103 Calcium 8.7 Magnesium 1.8 Iron 30 L TIBC 201 L Transferrin % Sat 15 Ferritin 719 H Total Bilirubin 1.1 H Conjugated Bilirubin 0.4 H AST 32 ALT 18 Alkaline Phosphatase 144 H C-Reactive Protein 2.64 H Total Protein 6.6 Albumin 2.8 L Vitamin B12 412 Folate > 20.0 H Time Spent with Patient Time Spent with Patient: 35-49 minutes Time was spent: preparing to see the patient(eg.review tests), ordering medications,tests, procedures, referring, communicating with other health customer care team coach, indepentently interpreting results, counseling the patient and care coordination
[2023-07-31] MEDS: Apixaban 5 MG TAB PO (15:17)
[2023-07-31] MEDS: Metoprolol 12.5 MG TAB 50 MG PO ×2 (15:17→21:09)
[2023-07-31] MEDS: Gabapentin 100 MG CAP PO ×2 (15:18→20:16)
[2023-07-31] MEDS: Atorvastatin 20 MG TAB PO (15:18)
--- NOTE | 2023-07-31 15:57 | W.SPSTE ---
Date of service: 07/31/23 Time of Service: 15:57 Subjective Clinical (Bedside) Swallow Evaluation - Inpatient Speech Language Pathology Referred by: Radha Matamoros MD Start time: 14:00 End time: 14:30 Total patient contact: 30 Min Referral Type: Routine Swallow Consult Precautions: Standard,Fall,DNR/DNI Reason for Referral/HPI: Patient complains of solid dysphagia and incident yesterday with persistent uncomfortable stasis in chest, eventually coughed up solid unchewed food. DIE CAST TECHNICIAN IMPRESSIONS & RECOMMENDATIONS: Reported and observed symptoms on exam indicate suspected solid>liquid esophageal dysphagia this date, with primary complaint being sensation of stasis in the chest with solid foods and large pills. Complicated by self-reported long history with reflux and reported impulsive feeding behaviors (fast eater, forget to take small bites,) In addition to reported stasis occasionally at level of distal as well as proximal esophagus with solids>purees, patient does have intermittent dry cough with solids. Consider if this is altered or referred sensation in setting of chronic reflux or esophageal stasis as she appears to tolerate large volumes thin liquid without any difficulty, reported stasis, or s/sx aspiration. Diet modification is indicated as below for the purpose of reduced risk of choking, reduced esophageal stasis, reduced work of breathing due to pulmonary status, impulsive or unsafe eating behaviors. Instrumentation: Will consider MBSS during inpatient stay or on outpatient basis if diet changes, reflux precautions, and swallow strategies do not improve patient's symptoms. FURTHER INPATIENT DIE CAST TECHNICIAN SERVICES: Patient to be followed while on unit DISCHARGE RECOMMENDATIONS: Pending progress/TBD, but anticipate no further need for DIE CAST TECHNICIAN services Diet Recommendations: ? SOLIDS: 5-Minced & Moist Solids LIQUIDS: 0-Thin Liquids MEDICATIONS: Small pills whole, 1-3 at a time Large pills 1 at a time and crushed, if able With 4-Purees and 0-Thin liquid wash Alter medications only as advised by MD or Pharmacist RISK MANAGEMENT: Level of Assistance/Supervision: 1:1 close supervision for all PO intake with reminders for strategies (renate. small bite size and alternate bites/sips) Pending patient's progress with strategies, may increase independence at next visit. Positioning and environment: PO intake only when awake/alert? Reduce auditory and/or visual distractions when eating Up to chair Oral hygiene BID/2x per day Using friction with toothbrush on all oral structures as tolerated Strategies/Adaptations/Assistive Equipment: Small bites Slow rate of intake Alternate intake of liquids and solids Reflux Precautions: Small+frequent meals throughout day Maintain fully upright position at least 30 minutes after meals Avoid meals/snacks 2-3 hours prior to reclining/sleeping Sleep with head of bed elevated to reduce likelihood of nocturnal reflux Education Provided to: Nursing Patient Family Topics Addressed: anatomy/physiology of swallowing mechanism definition and impacts of aspiration impact of current diagnoses on swallow function role of DIE CAST TECHNICIAN in management of swallow disorders overt s/sx to monitor for re: potential aspiration of food / liquids relationship between reflux, GERD and swallow fxn relationship between respiratory function and deglutition rationale and instruction for additional risk management strategies as below SUBJECTIVE: Patient received: alert/awake. Agreeable to evaluation. Family was present and participated in interview and education portions of evaluation. Pain Reported n/a Baseline Swallow Function: Patient reports sensation of esophageal (mostly proximal, occasional distal) stasis and discomfort with most solid foods, especially large bites, dry textures, large pills. Endorses reflux. Denies frequent coughing with liquids. OBJECTIVE Patient positioning: Up to chair/90 degrees Oral care: Reported recently completed Respiratory status: Room air appears occasionally dyspneic/wheezy (per RN, this was also reported overnight while NPO). 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 Speech/Language: Noting occasional word-initial dysfluencies as well as word-finding challenges (long pauses). Oral Mechanism Examination: Dentition: Natural dentition good condition Oral mucosa: Dry ? Cranial Nerve Assessment: CN V ? Trigeminal Facial Sensation WNL Jaw Strength/ROM WNL ?WNL CN VII- Facial WNL labial ROM, strength, coordination. WNL lingual sensation WNL CN IX ? Glossopharyngeal WNL palatal elevation with phonation. No evidence of nasal emissions WNL CN X ? Vagus WNL Vocal quality and volume. Strong/sharp volitional cough WNL CX XII ? Hypoglossal WNL lingual ROM, strength, coordination WNL PO Intake: Trials Assessed: IDDSI 0 Thin Liquids IDDSI 4 Puree Solid IDDSI 5 Minced and Moist Solid IDDSI 6 Soft & Bite Size Solid IDDSI 7 Regular Solid Oral Phase Findings: Slow/prolonged mastication Pharyngeal Phase Findings: Cough after swallow - delayed, throughout solid trials, not appearing tied to a single trial. Esophageal Phase Findings: Patient reports esophageal stasis ? [place] Swallow Protocol Results: PASS Complete/uninterrupted without s/sx aspiration PLAN: Frequency: 2-3x/week for 1-2 weeks Goals: Operating Room Coordinator Goals: Patient will remain free from aspiration-related illness, malnutrition, and dehydration. Patient/family will verbalize comprehension of education provided re: dx , strategies to maximize functioning, and role of ST. Short Term Goals: Patient will participate in ongoing diagnostic treatment addressing esophageal vs pharyngeal dysphagia. Patient will tolerate Minced/Moist Diet and Thin liquids without overt s/s aspiration across 2/2 visits. DIE CAST TECHNICIAN CPT Code: 97694 Clinical Swallowing Evaluation Coding CPT Codes EVALUATE SWALLOWING FUNCTION - 66968 ([id number]) Additional Codes Date of Service (81436) Date of service: 07/31/23
[2023-07-31] MEDS: Spironolactone 25 MG TAB PO (16:40)
[2023-07-31] MEDS: Furosemide 40 MG/4 ML VIAL IVP (16:40)
[2023-07-31 18:54] LABS: HBs Antibody, Qual Negative (See Note); HBs Antibody, Quant <3.1 mIU/mL (See Note); Hepatitis B Core Antibody Negative (Negative); Hepatitis B surface Ag Negative (Negative); Hepatitis C Ab w Rflx HCV PCR Negative (Negative)
[2023-07-31 19:05] LABS: MRSA PCR Negative (Negative)
[2023-07-31 19:33] LABS: Vancomycin, Trough 8.1 ug/mL (10.0-20.0)
[2023-07-31] MEDS: VANCOMYCIN/WATER (PEG) 1.5 GM/300 ML BAG IVPB (20:12)
[2023-07-31] MEDS: Pantoprazole 40 MG TABCR PO (20:16)
[2023-07-31] MEDS: Mirtazapine 15 MG TAB 7.5 MG PO (21:08)
[2023-07-31] MEDS: QUEtiapine 25 MG TAB PO (21:09)
[2023-08-01] MEDS: Metoprolol 12.5 MG TAB 50 MG PO (03:46)
[2023-08-01] MEDS: Acetaminophen 325 MG TAB PO ×2 (03:50→08:10)
[2023-08-01 04:09] VITALS: BP 135/84; PULSE 70; RESP 18; TEMP 35.9; O2SAT 97
[2023-08-01] MEDS: CEFEPIME 1 GM in Normal Saline 50 ML IVPB ×2 (05:20→13:30)
[2023-08-01] MEDS: Levothyroxine 50 MCG TAB PO (05:20)
[2023-08-01 07:04] VITALS: BP 134/78; PULSE 77; RESP 18; TEMP 36.4; O2SAT 98
[2023-08-01] MEDS: Hydrocortisone 1% CR 30 GM TUBE TP ×2 (08:05→13:31)
[2023-08-01] MEDS: Spironolactone 25 MG TAB PO (08:05)
[2023-08-01] MEDS: Pantoprazole 40 MG TABCR PO ×2 (08:10→20:35)
[2023-08-01] MEDS: Ketoconazole 2% CREAM 15 GM TUBE TP (08:10)
[2023-08-01] MEDS: QUEtiapine 25 MG TAB 12.5 MG PO (08:10)
[2023-08-01] MEDS: Normal Saline Flush 10 ML SYR IVP (08:10)
[2023-08-01] MEDS: Atorvastatin 20 MG TAB PO (08:10)
[2023-08-01] MEDS: Furosemide 40 MG/4 ML VIAL IVP (08:10)
[2023-08-01] MEDS: Gabapentin 100 MG CAP PO ×3 (08:10→20:35)
[2023-08-01 08:51] LABS: Anion Gap 8.8 mmol/L (3-11); BUN 15 mg/dL (7-18); C-Reactive Protein 1.83 mg/dL (0.0-0.3); CO2 23.2 mmol/L (21.0-32.0); CREATININE 0.7 mg/dL (0.55-1.02); Calcium 8.8 mg/dL (8.5-10.1); Chloride 109 mmol/L (98-107); Estimated GFR 85.23 (mL/min/1.73m2); Glucose 96 mg/dL (74-106); Potassium 3.7 mmol/L (3.5-5.1); Sodium 141 mmol/L (136-145)
[2023-08-01] MEDS: Apixaban 5 MG TAB PO ×2 (09:10→20:35)
[2023-08-01 09:41] LABS: HCT 31.6 % (36.0-46.0); HGB 10.3 g/dL (11.2-15.7); MCH 31.2 pg (27.0-33.0); MCHC 32.6 % (32.0-36.0); MCV 96 fL (80-95); RDW 14.2 % (11.7-14.6); RDW-SD 49.9 fL; WBC 3.08 10^3/uL (4.4-10.8)
[2023-08-01 09:42] LABS: Abs Immature Grans 0.01 10^3/uL (0.0-0.06); Absolute Basophil Count 0.05 10^3/uL (0.0-0.2); Absolute Lymphocyte Count 0.49 10^3/uL (1.2-3.4); Absolute Neutrophil Count 2.23 10^3/uL (1.2-6.7); Basophils % 1.6; Diff Comment Diff Reviewed; Eosinophils % 3.2; Immature Grans % 0.3; Lymphocytes % 15.9; MPV 11.1 fL (8.0-11.0); Monocytes % 6.5; Neutrophils % 72.5; RBC Morphology Normal
[2023-08-01 09:43] LABS: Platelet Count 86 10^3/uL (130-400)
[2023-08-01] MEDS: Metoprolol 50 MG TAB PO (09:43)
--- NOTE | 2023-08-01 10:08 | IN_ITS ---
PT Notes Visit Reasons: Atrial fibrillation with RVR, Right lower lobe pn Physical Therapy Inpatient Initial Evaluation Date: 08/01/2023 Referring Doctor: Radha Matamoros MD Maegan is an 84-year-old female who presented to the ED on 07/29/2024 due to fever and iT Orders: PT CONSULT: Limited ability Precautions: Fall. Standard. Activity as tolerated. Patient Profile/Admitting Diagnosis: Maegan is an 83-year-old female who presented to the ED on 07/29/2023 due to fever and shortness of breath fever. The patient is admitted for management of sepsis, pneumonia, preseptal cellulitis, acute on chronic HFrEF, aspiration into airway, vascular dementia, cellulitis of face, hypothyroidism, and diabetes. PMHX: All Active Problems (Updated 07/30/23 @ 01:42 by Brent Carr) Cellulitis, face (Acute) Elevated liver function tests (Chronic) Thrombocytopenia (Chronic) Pneumonia (Acute) Atrial fibrillation with rapid ventricular response (Acute) Urinary incontinence (Acute) Inflammatory bowel disease (Chronic) [facility] [place] [facility] 04/17/23 Metatarsalgia of left foot (Acute) Corns and callosities (Acute) Nail dystrophy (Acute) Vascular dementia (Chronic) Delusions (Acute) Alzheimer's dementia with agitation (Acute) Palliative care patient (Acute) Dementia (Chronic) Essential hypertension (Chronic) Onychomycosis (Acute ~06/2021) Iron deficiency anemia (Acute) Managed by [facility]. 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) Chronic anemia (Chronic 09/04/17) IBD-Crohns Osteoporosis (Chronic 03/27/16) Migraines (Chronic 09/04/17) Hypothyroidism (Chronic 09/04/17) Depression (Chronic 09/12/17) Crohn's disease with complication (Chronic 09/04/17) Crohn's colitis and ileitis, mild-[facility] Note 08/01/22B12 deficiency (Chronic 09/04/17) Anxiety (Chronic 09/04/17) Medical History Visual hallucinations Sensorineural hearing loss, bilateral Fall Deep vein thrombosis (DVT) (09/12/17) Mild intermittent asthma without complication (09/12/17) Posterior staphyloma [facility] report dated 04/17/18. Brent Castaneda, OD Astigmatism of both eyes [facility] report dated 04/17/18. Brent Castaneda, OD Grade 1 hypertensive retinopathy Meibomian gland dysfunction (MGD) [facility] exam dated 04/17/18. Brent Castaneda, OD Neck pain (09/04/17) Fatigue (09/04/17) Exacerbation of Crohn's disease Microcytic anemia Nonspecific ST-T wave electrocardiographic changes Dehydration Hypomagnesemia Asthma exacerbation Acute bronchitis Influenza A Surgical History H/O colonoscopy (04/07/18) [facility] [place]sterectomy, Laproscopic Hiatal Hernia repair (09/11/17) Repair of umbilical hernia (09/11/17) Social History/Home Situation: Lives with son in an apartment building with a ramp to and 1 step to the entrance door. Modified independent with all indoor mobility performance using front-wheeled walker. Son works during the day. Able to cook meals, do dishes, and self care. Son does the laundry downstairs. Has not negotiated down the steps at home for a long time due to safety reason. Has an AFO for the L foot drop. Equipment Owned/DME: FWW, L AFO Subjective: Feels much better. Agreeable to walking with PT. Denied headache, chest pain, and lightheadedness throughout session. Objective: General Observation: Resting in bed. Oxygen supplementation at 1 L/min via NC. External female catheter in place. Swelling and minimal erythema noted in face which Nurse Ybarra stated has been better. Mental Status: Alert and oriented as to person, place and puropose. Pain: Denied Vital Signs: Closely monitored by nursing staff ROM: Right Upper Extremity: Shoulder Flexion WFL. Shoulder abduction WFL. Elbow flexion WFL. Wrist flexion WFL. Functional opening and closing of hand WFL. Left Upper Extremity: Shoulder Flexion WFL. Shoulder abduction WFL. Elbow flexion WFL. Wrist flexion WFL. Functional opening and closing of hand WFL. Right Lower Extremity: Hip flexion WFL. Hip abduction WFL. Knee flexion WFL. Ankle dorsiflexion WFL. Ankle plantarflexion WFL. Left Lower Extremity: Hip flexion WFL. Hip abduction WFL. Knee flexion WFL. Ankle dorsiflexion none. Ankle plantarflexion WFL. Strength: Right Upper Extremity: Shoulder flexors 4-/5. Shoulder abductors 4-/5. Elbow flexors 4-/5. Elbow extensors 4-/5. Mechanical Engineering Lecturer strong. Left Upper Extremity: Shoulder flexors 4-/5. Shoulder abductors 4-/5. Elbow flexors 4-/5. Elbow extensors 4-/5. Mechanical Engineering Lecturer strong. Right Lower Extremity: Hip flexors 4-/5. Hip abductors 4-/5. Knee flexors 4-/5. Knee extensors 4-/5. Ankle dorsiflexors 4-/5. Ankle plantarflexors 4-/5. Left Lower Extremity: Hip flexors 4-/5. Hip abductors 4-/5. Knee flexors 4-/5. Knee extensors 4-/5. Ankle dorsiflexors 0/5. Ankle plantarflexors 4-/5. Bed Mobility/Transfers: Minimal verbal cueing cueing provided for use of B hands as needed for support, movement sequence, Ad management, and and posture to reduce fall risk and minimize pain report. Rolling supervision Supine to sit supervision Sit to supine supervision Sit to stand contact guard assist Stand to sit contact guard assist Bed to bedside commode contact guard assist Reclining chair to bed contact guard assist Gait: Facilitated safe and correct performance of short distance ambulation using front wheeled walker covering a distance 20 feet with wheelchair follow and oxygen supplementation 1 L/min with no shortness of breath and no LOB. Increased left hip and knee flexion due to left foot drop (patient left brace at home). Minimal verbal cueing provided for safe advancement left LE related to left foot drop, posture, AD management, and energy conservation. Balance: Static Sitting: Normal Dynamic Sitting: Normal Static Standing: Fair Dynamic Standing: Fair Special Tests: Mobility Limitations Standardized Measure [facility] AM-PAC 6 clicks Basic Mobility Inpatient Short Form: Raw Score: 18 CMS Score: 47% deficit Informed Consent/Education: Patient was instructed in purpose of PT consult and plan of care. Agreeable to proceed with established PT POC to achieve personal goals. Assessment: Patient presents with clinical signs and symptoms consistent with current/admitting diagnoses that have resulted to mobility limitations, gait instability, generalized weakness, and overall ADL decline as demonstrated by the following impairment level findings: 1. Decreased strength to B UE/LE major muscle groups 2. Impaired sitting/standing balance 3. Impaired activity tolerance 4. Limitation of joint range of motion in L ankle due to pre-existing foot drop (chronic) 5. Facial swelling Impairments are contributing to the following functional limitations: 1. Decline in bed mobility skills 2. Decline in transfer skills 3. Difficulty with ambulation without assistive device 4. Increased completion time for mobility ADL performance 5. Increased risk for falls 6. Difficulty with managing steps alone safely Patient is assessed as a 92668 moderate complexity based on the following: History: 83-year-old female with past medical history as indicated above Examination: Demonstrable impairment in strength, balance, and mobility level with underlying impairments and functional limitations as exhibited above as well as deficit score of 47% utilizing the [facility] Mobility Inpatient Short Form Presentation: Evolving Decision Makin moderate complexity Goals: Goals X1 week 1. Supine-Sit independent 2. Sit-Supine independent 3. Sit-Stand independent 4. Stand-Sit independent with FWW 5. Bed-Chair independent with FWW 6. Chair-Bed independent with FWW 7. Independent gait on level surface with use of FWW for at least 300 feet without report of pain nor dyspnea 8. Independent stair negotiation while holding onto B rails for at least 2 steps without report of pain nor dyspnea 9. Independent with home exercise program 10. Good static and dynamic standing balance/tolerance Plan of Care/Treatment Plan: 1-2x/day, 7 days/week x 1 week. Plan of care has been reviewed with the SENIOR INFORMATICA ETL DEVELOPER providing the service under Physical Therapy direction. Initiate Physical Therapy intervention for pain management as needed, strengthening, bed mobility, transfers, gait, stairs, balance training, and use of assistive device. DISCHARGE RECOMMENDATIONS: [] Home with no services [] [X] Home with services. Patient will benefit from home health PT services in order to progress mobility level using least restrictive assistive ambulatory device, assess home safety, identify additional equipment needs, and establish a functional maintenance program that will increase ability of patient to remain at home. [] Home with outpatient PT [] [] SNF for continued rehabilitation [] [] Crystallographer Care [] [] SNF versus LTC based on ability to participate and progress [] [X] May benefit from outpatient lymphedema management to head and neck when cleared by hospitalist TREATMENT CODE/TIME: 9716 2 x 17 minutes beginning at 10:08 AM. Thank you for the opportunity to participate in the care of this patient. Anuradha Alvarez PT, DPT, CLT [facility] [place], [place]
--- NOTE | 2023-08-01 10:45 | PT.INTREAT ---
PT Notes Visit Reasons: Atrial fibrillation with RVR, Right lower lobe pn Date: 08/01/23 PRECAUTIONS: Fall, standard, activity as tolerated. SUBJECTIVE: Patient sitting on the EOB when approached for therapy this morning, OBJECTIVE: Supine in bed. IV RUE. Agreeable to therapy. left foot drop (+) ? PAIN: none reported or observed. ? ? BED MOBILITY/TRANSFERS? Rolling L/R: independent Supine-sit: independent ? Sit-supine: independent ? Sit-stand: SBA ? Stand-sit: SBA ? Bed-Chair: SBA ? Chair-bed: SBA Ambulation ? Assistive Device: FWW ? Weight bearing: full Assist: CGA/SBA? Distance:? 350 feet ? Deviation: increased hip and knee flexion on left LE to accommodate left foot drop.? Provided skilled manual cues to facilitate proper muscle recruitment and/or form. ASSESSMENT:? pt able to complete distance and duration of gait training without rest break, LOB, SOB. Pt able to get in bed independently, a setup for comfort, safety and proper body alignment while in bed. PLAN: Continue global strengthening per plan of care until patient is medically cleared for discharge. TREATMENT CODE/TIME: [id number] 15mins, (10:2610-41am)
--- NOTE | 2023-08-01 11:00 | W.SPSTP ---
Date of service: 08/01/23 Time of Service: 09:45 Subjective SUBJECT: Patient received alert/awake sitting upright in bed tolerating nasal cannula, agreeable to ELECTRICAL INTERN treatment. OBJECTIVE: PO trials completed with fig solares (IDDSI L7EC) and thin liquids via straw as well as med in applesauce administered by RN Patient positioning: Upright in bed 90 degrees Respiratory status: Nasal canula Orientation/Mental status: Did not formally test; oriented to self/situation Speech/Language: Noting frequent word-initial dysfluencies Oral Phase Findings: Pt observed to take very small/slow bites and chew thoroughly Pharyngeal Phase Findings: Immediate cough with fig solares, not appreciated with subsquent bites. No s/s aspiration with liquids ASSESSMENT: Maegan was seen today for dysphagia follow-up. She reports dysphagia symptoms have improved since diet modification (L5 minced/moist) as well as being mindful of eating slowly and chewing food thoroughly. With PO trials today, she did demonstrate initial cough episode with fig solares- consistent possibly with penetration. She reports overall dysphagia symptoms have been ongoing since >1 year and she does feel they are worsening. Education provided re: nature of modified barium swallow study assessment and ultimately Maegan would like to move forward with this to see if symptoms are solely due to eating too quickly/not chewing adequately vs anatomical/physiological deficit. If patient is still in-house next week, can consider completing as inpatient otherwise can be completed in outpatient setting. Recommend continuation of current diet parameters as outlined below. ELECTRICAL INTERN to continue to follow. FURTHER INPATIENT ELECTRICAL INTERN SERVICES: Patient to be followed while on unit DISCHARGE RECOMMENDATIONS: Pending progress/TBD. Anticipate recommended outpatient modified barium swallow study (MBSS) Diet Recommendations: ? SOLIDS: 5-Minced & Moist Solids LIQUIDS: 0-Thin Liquids MEDICATIONS: Small pills whole, 1-3 at a time Large pills 1 at a time and crushed, if able With 4-Purees and 0-Thin liquid wash Alter medications only as advised by MD or Pharmacist RISK MANAGEMENT: Level of Assistance/Supervision: Close/Intermittent supervision for all PO intake with reminders for strategies (renate. small bite size and alternate bites/sips) Pending patient's progress with strategies, may increase independence at next visit. Positioning and environment: PO intake only when awake/alert? Reduce auditory and/or visual distractions when eating Up to chair Oral hygiene BID/2x per day Using friction with toothbrush on all oral structures as tolerated Strategies/Adaptations/Assistive Equipment: Small bites Slow rate of intake Alternate intake of liquids and solids Reflux Precautions: Small+frequent meals throughout day Maintain fully upright position at least 30 minutes after meals Avoid meals/snacks 2-3 hours prior to reclining/sleeping Sleep with head of bed elevated to reduce likelihood of nocturnal reflux Pain Reported n/a PLAN: Frequency: 2-3x/week for 1-2 weeks Goals: Crisis Mental Health Therapist Goals: Patient will remain free from aspiration-related illness, malnutrition, and dehydration. Patient/family will verbalize comprehension of education provided re: dx , strategies to maximize functioning, and role of ST. Short Term Goals: Patient will participate in ongoing diagnostic treatment addressing esophageal vs pharyngeal dysphagia. Patient will tolerate Minced/Moist Diet and Thin liquids without overt s/s aspiration across 2/2 visits. Coding CPT Codes ORAL FUNCTION THERAPY - 12093 ([id number]) Additional Codes Date of Service (25499) Date of service: 08/01/23
[2023-08-01 11:16] VITALS: BP 107/67; PULSE 75; RESP 18; TEMP 36.2; O2SAT 96
--- NOTE | 2023-08-01 13:33 | CMPROGNOTE_ITS ---
Date of service: 08/01/23 Time of Service: 13:33 Care Management Progress Note Progress Note Text Progress Note Text: S/O: Maegan was sitting up in her chair when CM met with her. Her son, daughter in law and a friend were visiting. She was very happy to have visitors, and reiterated how supportive her family and friends are. Per report, she is responding well to antibiotic therapy. CM will continue to follow. A: Maegan is an 83 year old female admitted to [facility] on 07/29/23 for Afib with RVR, PNA, facial cellulitis. P: Anticipate Maegan will return home once medically cleared. Her son will drive her home via private vehicle. She will follow up with her PCP and discharge plan of care. CM will continue to follow.
--- NOTE | 2023-08-01 14:02 | W.PALLCONSUL ---
Date of service: 08/01/23 Time of Service: 15:34 History of Present Illness Narrative: Maegan is an 83 year old female, who has a past medical history of mixed AD and vascular dementia, crohn's and REYNOLDS, who is followed by Palliative and is currently admitted for acute on chronic HF with reduced EF, PNA, facial cellulitis. Palliative was consulted for continuity of care. She was seen in her room with her son, Bryan and his , Sushila present. She was sitting up in the recliner. She reports that she is feeling much better than when she arrived. She is breathing better. She recognizes that she was very sick when she presented to the ED. Her family reports that she got sick very quickly. They saw her 2 days prior to her admission and she was doing well. When Bryan saw her the day of admission, he was very concerned. She is anxious to get home but realizes that is not ready to be discharged yet. She has a very supportive family and the plan is for her to return to her apartment. She lives with her son, Gus and Bryan and Sushila check on her frequently. She had a choking episode a couple of days ago. She choked on broccoli. She has been seen by ST and recommendations have been made. Her meals have been minced. She is beginning to eat better, she is enjoying the food. She is working with PT and they recommend home with HH at time of discharge. She has previously established that she is a DNR/DNI. She recognized me when I entered the room. She was happy to see a familiar face. Assessment and Plan Assessment and plan (1) Sepsis: Status: Acute Assessment and plan: Sources: preseptal cellulitis + / - pneumonia, present on admission. Improving. She is transitioning to oral Abx. Qualifiers: Sepsis type: sepsis due to unspecified organism Sepsis acute organ dysfunction status: without acute organ dysfunction Qualified Code(s): A41.9 - Sepsis, unspecified organism (2) Preseptal cellulitis: Status: Acute Assessment and plan: As above (3) Acute on chronic HFrEF (heart failure with reduced ejection fraction): Status: Acute Assessment and plan: Echocardiogram showed mildly reduced LV systolic function with an EF of 42% with global hypokinesis. RV was normal size with normal RV systolic function. RVSP 31 mm. Mild to moderate mitral regurgitation mild tricuspid regurgitation. (4) Atrial fibrillation with rapid ventricular response: Start date: 07/29/23 Status: Acute (5) Pneumonia: Start date: 07/29/23 Status: Suspected Assessment and plan: Atelectasis vs PNA. Qualifiers: Pneumonia type: due to unspecified organism Laterality: right Lung location: lower lobe of lung Qualified Code(s): J18.9 - Pneumonia, unspecified organism (6) Aspiration into airway: Status: Acute Assessment and plan: Evaluated by ST, recommendations have been made. Qualifiers: Encounter type: initial encounter Qualified Code(s): T17.908A - Unspecified foreign body in respiratory tract, part unspecified causing other injury, initial encounter (7) Pleural effusion, right: Status: Acute (8) Inflammatory bowel disease: Status: Chronic Assessment and plan: Followed by [facility] [place]. (9) Vascular dementia: Status: Chronic Qualifiers: Dementia severity: moderate Dementia behavioral or psychological symptom: with anxiety Qualified Code(s): F01.B4 - Vascular dementia, moderate, with anxiety (10) Essential hypertension: Status: Chronic (11) Hypothyroidism: Status: Chronic Qualifiers: Hypothyroidism type: acquired Qualified Code(s): E03.9 - Hypothyroidism, unspecified (12) Depression: Status: Chronic Qualifiers: Depression Type: reactive depression Qualified Code(s): F32.9 - Major depressive disorder, single episode, unspecified (13) Cirrhosis: Status: Acute Assessment and plan: New diagnosis. Per Hospitalist: Likely contributing to the thrombocytopenia. Viral hepatitis studies were negative. suspect she has cardiac etiology of her cirrhosis or has GARCIA Qualifiers: Hepatic cirrhosis type: unspecified hepatic cirrhosis Ascites presence: without ascites Qualified Code(s): K74.60 - Unspecified cirrhosis of liver (14) Drug eruption: Status: Acute (15) Pancytopenia: Status: Acute Assessment and plan: Probably anemia of chronic disease. (16) Palliative care patient: Status: Acute Assessment and plan: Maegan is an 83 year old female, who has a past medical history of mixed AD and vascular dementia, crohn's and REYNOLDS, who is followed by Palliative and is currently admitted for acute on chronic HF with reduced EF, a-fib with RVR, PNA, facial cellulitis. Palliative was consulted for continuity of care. She was seen in her room with her son, Bryan and his , Sushila present. She is improving, still not back to her baseline. She was evaluated by PT today and they recommend home with HH services. Her plan is to return home to her apartment where she lives with her son, Gus. She has a very supportive family. Gus works but she has a caregiver, Joshua and her son, Irene visit frequently. She has previously established that she is a DNR/DNI. Follow up with Palliative as scheduled, sooner as needed. Review of Systems Narrative: per hpi PFSH All Active Problems Acute on chronic HFrEF (heart failure with reduced ejection fraction) (Acute) Aspiration into airway (Acute) Discharge planning issues (Acute) DVT prophylaxis (Acute) Pleural effusion, right (Acute) Sepsis (Acute) Pancytopenia (Acute) Drug eruption (Acute) Cirrhosis (Acute) Preseptal cellulitis (Acute) Cellulitis, face (Acute) Elevated liver function tests (Chronic) Thrombocytopenia (Chronic) Atrial fibrillation with rapid ventricular response (Acute) Urinary incontinence (Acute) Inflammatory bowel disease (Chronic) [facility] [place] [facility] Note 04/17/23 Metatarsalgia of left foot (Acute) Corns and callosities (Acute) Nail dystrophy (Acute) Vascular dementia (Chronic) Delusions (Acute) Alzheimer's dementia with agitation (Acute) Palliative care patient (Acute) Dementia (Chronic) Essential hypertension (Chronic) Onychomycosis (Acute ~06/2021) Iron deficiency anemia (Acute) Managed by [facility] 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) Chronic anemia (Chronic 09/04/17) IBD-Crohns Osteoporosis (Chronic 03/27/16) Migraines (Chronic 09/04/17) Hypothyroidism (Chronic 09/04/17) Depression (Chronic 09/12/17) Crohn's disease with complication (Chronic 09/04/17) Crohn's colitis and ileitis, mild-[facility] Note 08/01/22 B12 deficiency (Chronic 09/04/17) Anxiety (Chronic 09/04/17) Medical History Visual hallucinations Sensorineural hearing loss, bilateral Fall Deep vein thrombosis (DVT) (09/12/17) Mild intermittent asthma without complication (09/12/17) Posterior staphyloma [facility] report dated 04/17/18. Brent Castaneda, OD Astigmatism of both eyes [facility] report dated 04/17/18. Brent Castaneda, OD Grade 1 hypertensive retinopathy Meibomian gland dysfunction (MGD) [facility] exam dated 04/17/18. Brent Castaneda, OD Neck pain (09/04/17) Fatigue (09/04/17) Exacerbation of Crohn's disease Microcytic anemia Nonspecific ST-T wave electrocardiographic changes Dehydration Hypomagnesemia Asthma exacerbation Acute bronchitis Influenza A Surgical History H/O colonoscopy (04/07/18) [facility] [place] Hysterectomy, Laproscopic Hiatal Hernia repair (09/11/17) Repair of umbilical hernia (09/11/17) Social History Smoking/Tobacco Use Status: Never Smoking risk assessment performed?: Yes Alcohol Intake: never Substance use type: does not use Household members: children Housing: apartment Number of Children: 3 Current gender identity: female What is your relationship status?: Panel score (0-1 are the most socially isolated patients): 0 What type of physical activity do you participate in: none Seatbelt use: always Water heater temp set <120 deg: Yes Working smoke detector in home: Yes Fire extinguisher in home: Yes Carbon monox detector in home: Yes Firearms in home: No Do you feel safe at home: Yes Do you feel safe in your relationship?: Yes History History Para 3 Hx # Term Pregnancies Multiple births Hx # Pregnancies Ectopic pregnancies AB induced Hx Number of Living Children AB spontaneous Results Last Vital Signs Temp 36.2 C L 08/01/23 11:16 Pulse 75 08/01/23 11:16 Resp 18 08/01/23 11:16 BP 107/67 08/01/23 11:16 Pulse Ox 96 08/01/23 11:16 Labs 08/01/23 06:40 08/02/23 06:30 Labs: Laboratory Results - last 24 hr 07/31/23 07/31/23 07/31/23 06:10 17:45 19:05 WBC RBC Hgb Hct MCV MCH MCHC RDW Plt Count MPV Immature Gran % Neutrophils % Lymphocytes % Monocytes % Eosinophils % Basophils % Nucleated RBC % Absolute Neutrophils Absolute Lymphocytes Absolute Monocytes Absolute Eosinophils Absolute Basophils RBC Morphology Sodium Potassium Chloride Carbon Dioxide Anion Gap BUN Creatinine Est GFR (CKD-EPI 2020) Glucose Calcium C-Reactive Protein Vancomycin Trough 8.1 L Hep Bs Antigen Negative Hep Bs Antibody Negative Hep Bs Antibody, Quant <3.1 Hep B Core Total Ab Negative Hepatitis C Antibody Negative MRSA (TEM-PCR) Negative 08/01/23 06:40 WBC 3.08 L RBC 3.30 L Hgb 10.3 L Hct 31.6 L MCV 96 H MCH 31.2 MCHC 32.6 RDW 14.2 Plt Count 86 L MPV 11.1 H Immature Gran % 0.3 Neutrophils % 72.5 Lymphocytes % 15.9 Monocytes % 6.5 Eosinophils % 3.2 Basophils % 1.6 Nucleated RBC % 0.0 Absolute Neutrophils 2.23 Absolute Lymphocytes 0.49 L Absolute Monocytes 0.20 Absolute Eosinophils 0.10 Absolute Basophils 0.05 RBC Morphology Normal Sodium 141 Potassium 3.7 Chloride 109 H Carbon Dioxide 23.2 Anion Gap 8.8 BUN 15 Creatinine 0.7 Est GFR (CKD-EPI 2020) 85.23 Glucose 96 Calcium 8.8 C-Reactive Protein 1.83 H Vancomycin Trough Hep Bs Antigen Hep Bs Antibody Hep Bs Antibody, Quant Hep B Core Total Ab Hepatitis C Antibody MRSA (TEM-PCR)
[2023-08-01 15:11] VITALS: BP 120/83; PULSE 81; RESP 16; TEMP 36.6; O2SAT 99
--- NOTE | 2023-08-01 15:42 | W.PM.PROGNOT ---
Date of Service Date of service: 08/01/23 Time of Service: 15:42 Assessment and Plan Assessment and plan (1) Sepsis: Status: Acute Assessment and plan: Sources: preseptal cellulitis + / - pneumonia, present on admission. No longer exhibiting signs of sepsis. Patient is responding to antibiotics. She had been on doxycycline along with cefepime and vancomycin. Doxycycline was discontinued yesterday. She remains on cefepime and vancomycin. Vanco therapy could can be consolidated and switch to an oral antibiotic at this point. Blood cultures have been no growth x 48 hours. I will discontinue cefepime and vancomycin consolidate and treat her with Augmentin. I had considered Zyvox however this interacts with the Remeron. Professional time spent interviewing and examining patient, discussion of goals of care with hospital team (care management, nursing and consulting professionals) was 35 minutes. Qualifiers: Sepsis type: sepsis due to unspecified organism Sepsis acute organ dysfunction status: without acute organ dysfunction Qualified Code(s): A41.9 - Sepsis, unspecified organism (2) Preseptal cellulitis: Status: Acute Assessment and plan: As above (3) Acute on chronic HFrEF (heart failure with reduced ejection fraction): Status: Acute Assessment and plan: Echocardiogram from today showed mildly reduced LV systolic function with an EF of 42% with global hypokinesis. RV was normal size with normal RV systolic function. RVSP 31 mm. Mild to moderate mitral regurgitation mild tricuspid regurgitation. Consolidate her treatment for her CHF. Will start her on oral Lasix 40 mg twice a day continue spironolactone. Will add Entresto to her regimen and consolidate her Lopressor to Toprol-XL. Continue anticoagulation with apixaban continue aspirin 81 mg daily.. (4) Atrial fibrillation with rapid ventricular response: Start date: 07/29/23 Status: Acute Assessment and plan: change to Toprol XL 50 mg bid, although may need higher doses, will monitor overnight, if rates are well controlled consider dc home in the next 48 hr. will try to wean her off oxygen (5) Pneumonia: Start date: 07/29/23 Status: Suspected Assessment and plan: Atelectasis vs PNA. POCUS yesterday did not show air bronchograms, but atelectatic fish tail lung and bilateral pleural effusions. Nevertheless will continue antibiotics for her cellulitis, but change to Augmentin. Qualifiers: Pneumonia type: due to unspecified organism Laterality: right Lung location: lower lobe of lung Qualified Code(s): J18.9 - Pneumonia, unspecified organism (6) Aspiration into airway: Status: Acute Assessment and plan: MBSS was done this demonstrated the following: IMPRESSION: 1. No strictures are seen in the esophagus. 2. Postsurgical changes are seen at the gastroesophageal junction. 3. Right basilar infiltrate which may represent atelectasis or pneumonia SHOWER ATTENDANT recommends the following: DISCHARGE RECOMMENDATIONS: Pending progress/TBD. Anticipate recommended outpatient modified barium swallow study (MBSS) Diet Recommendations: ? SOLIDS: 5-Minced & Moist Solids LIQUIDS: 0-Thin Liquids MEDICATIONS: Small pills whole, 1-3 at a time Large pills 1 at a time and crushed, if able With 4-Purees and 0-Thin liquid wash Alter medications only as advised by MD or Pharmacist Qualifiers: Encounter type: initial encounter Qualified Code(s): T17.908A - Unspecified foreign body in respiratory tract, part unspecified causing other injury, initial encounter (7) Pleural effusion, right: Status: Acute Assessment and plan: she has bilateral pleural effusions per [place] will continue diuretics,continue lasix but switch to oral lasix, continue spironolactone (8) Inflammatory bowel disease: Status: Chronic Assessment and plan: Continue outpatient medical therapy. [place] [facility] (9) Vascular dementia: Status: Chronic Assessment and plan: Monitor for behaviors. Qualifiers: Dementia severity: moderate Dementia behavioral or psychological symptom: with anxiety Qualified Code(s): F01.B4 - Vascular dementia, moderate, with anxiety (10) Essential hypertension: Status: Chronic Assessment and plan: Monitor with an increased dose of metoprolol. (11) Hypothyroidism: Status: Chronic Assessment and plan: Continue levothyroxine. TSH is normal 1.24 Qualifiers: Hypothyroidism type: acquired Qualified Code(s): E03.9 - Hypothyroidism, unspecified (12) Depression: Status: Chronic Assessment and plan: Continue mirtazapine and quetiapine. Qualifiers: Depression Type: reactive depression Qualified Code(s): F32.9 - Major depressive disorder, single episode, unspecified (13) Cirrhosis: Status: Acute Assessment and plan: New diagnosis. LIkely contributing to the thrombocytopenia. Viral hepatitis studies were negative. suspect she has cardiac etiology of her cirrhosis or has GARCIA Qualifiers: Hepatic cirrhosis type: unspecified hepatic cirrhosis Ascites presence: without ascites Qualified Code(s): K74.60 - Unspecified cirrhosis of liver (14) Drug eruption: Status: Acute Assessment and plan: Start topical hydrocortisone. (15) Pancytopenia: Status: Acute Assessment and plan: Check b12/folate/iron studies. Both were normal (B12 412, folate >20), probably anemia of chronic disease; her serum iron is low at 30 but her TIBC is also low at 201 and ferritin is high at 719. (16) DVT prophylaxis: Status: Acute Assessment and plan: On apixaban (for afib) (17) Discharge planning issues: Status: Acute Assessment and plan: DNR/DNI C/s PT, speech, palliative care. anticipate dc home soon, i.e. in next 24 to 48 hr Subjective Subjective Interval history since last seen: Patient has no acute complaints denies any dyspnea cough shortness of breath or chest pain. She continues to receive Lasix 40 mg IV every 12 hours for acute exacerbation HFrEF. Atrial fibrillation rate is under variable control. Currently on metoprolol 50 mg every 6 hours. Heart rate overall 80s to low 100s. Currently on apixaban for stroke prevention. Continues to receive vancomycin and cefepime for facial cellulitis. Exam Narrative Exam Narrative: Elderly female sitting up in the chair talking with her family no acute distress able to talk in complete sentences. HEENT is remarkable for right-sided facial cellulitis that is improving skin is now more of a salmon color. Inspection of the right ear canal reveals no exudate. Lungs are clear to auscultation anteriorly posteriorly she has just some faint basilar rales no rhonchi Heart is irregularly irregular overall improved rate control Abdomen soft and nontender Lower extremities without peripheral edema Objective Last Vital Signs Temp 36.6 C 08/01/23 15:11 Pulse 81 08/01/23 15:11 Resp 16 08/01/23 15:11 BP 120/83 08/01/23 15:11 Pulse Ox 99 08/01/23 15:11 Laboratory Results - last 24 hr 07/31/23 07/31/23 07/31/23 06:10 17:45 19:05 WBC RBC Hgb Hct MCV MCH MCHC RDW Plt Count MPV Immature Gran % Neutrophils % Lymphocytes % Monocytes % Eosinophils % Basophils % Nucleated RBC % Absolute Neutrophils Absolute Lymphocytes Absolute Monocytes Absolute Eosinophils Absolute Basophils RBC Morphology Sodium Potassium Chloride Carbon Dioxide Anion Gap BUN Creatinine Est GFR (CKD-EPI 2020) Glucose Calcium C-Reactive Protein Vancomycin Trough 8.1 L Hep Bs Antigen Negative Hep Bs Antibody Negative Hep Bs Antibody, Quant <3.1 Hep B Core Total Ab Negative Hepatitis C Antibody Negative MRSA (TEM-PCR) Negative 08/01/23 06:40 WBC 3.08 L RBC 3.30 L Hgb 10.3 L Hct 31.6 L MCV 96 H MCH 31.2 MCHC 32.6 RDW 14.2 Plt Count 86 L MPV 11.1 H Immature Gran % 0.3 Neutrophils % 72.5 Lymphocytes % 15.9 Monocytes % 6.5 Eosinophils % 3.2 Basophils % 1.6 Nucleated RBC % 0.0 Absolute Neutrophils 2.23 Absolute Lymphocytes 0.49 L Absolute Monocytes 0.20 Absolute Eosinophils 0.10 Absolute Basophils 0.05 RBC Morphology Normal Sodium 141 Potassium 3.7 Chloride 109 H Carbon Dioxide 23.2 Anion Gap 8.8 BUN 15 Creatinine 0.7 Est GFR (CKD-EPI 2020) 85.23 Glucose 96 Calcium 8.8 C-Reactive Protein 1.83 H Vancomycin Trough Hep Bs Antigen Hep Bs Antibody Hep Bs Antibody, Quant Hep B Core Total Ab Hepatitis C Antibody MRSA (TEM-PCR) Time Spent with Patient Time Spent with Patient: 35-49 minutes Time was spent: preparing to see the patient(eg.review tests), ordering medications,tests, procedures, referring, communicating with other health point of care technician, indepentently interpreting results, counseling the patient (Including family (son and daughter)) and care coordination
[2023-08-01] MEDS: Furosemide 40 MG TAB PO (16:10)
[2023-08-01] MEDS: Amoxicillin 875/Clav. 125 TAB PO (20:35)
[2023-08-01] MEDS: Sacubitril/Valsartan 24 mg/26 mg TAB 1 EACH PO (20:35)
[2023-08-01 20:45] VITALS: BP 131/77; PULSE 113; RESP 18; TEMP 36.3; O2SAT 99
[2023-08-01] MEDS: Mirtazapine 15 MG TAB 7.5 MG PO (21:14)
[2023-08-01] MEDS: QUEtiapine 25 MG TAB PO (21:14)
[2023-08-01] MEDS: Metoprolol CR 50 MG TABCR PO (21:15)
[2023-08-01 23:12] VITALS: BP 132/73; PULSE 56; RESP 18; TEMP 36.6; O2SAT 95
[2023-08-02] VITALS (7 sets, daily range): BP systolic 111–129; BP diastolic 67–75; PULSE 74–117; RESP 16–18; TEMP 36.3–37; O2SAT 92–96
[2023-08-02] MEDS: Levothyroxine 50 MCG TAB PO (06:39)
[2023-08-02 07:47] LABS: Anion Gap 9.2 mmol/L (3-11); BUN 15 mg/dL (7-18); C-Reactive Protein 1.29 mg/dL (0.0-0.3); CO2 26.8 mmol/L (21.0-32.0); CREATININE 0.8 mg/dL (0.55-1.02); Calcium 8.8 mg/dL (8.5-10.1); Chloride 108 mmol/L (98-107); Estimated GFR 72.61 (mL/min/1.73m2); Glucose 104 mg/dL (74-106); Magnesium 1.8 mg/dL (1.8-2.4); NT-proBNP 1442 pg/mL (<300); Potassium 3.3 mmol/L (3.5-5.1); Sodium 144 mmol/L (136-145)
[2023-08-02 08:30] LABS: Procalcitonin < 0.1 ng/mL
--- NOTE | 2023-08-02 09:22 | PDOC.CMPRO ---
Date of service: 08/02/23 Time of Service: 09:22 Care Management Progress Note Progress Note Text Progress Note Text: S/O: A: Maegan is an 83 year old female admitted to [facility] on 07/29/23 for Afib with RVR, PNA, facial cellulitis. P: Anticipate Maegan will return home once medically cleared. Her son will drive her home via private vehicle. She will follow up with her PCP and discharge plan of care. CM will continue to follow.
[2023-08-02] MEDS: Apixaban 5 MG TAB PO (09:26)
[2023-08-02] MEDS: Empaglifozin 10 MG TAB PO (09:27)
[2023-08-02] MEDS: Potassium Chloride 10 MEQ CAPCR 20 MEQ PO ×2 (09:27→13:10)
[2023-08-02] MEDS: Amoxicillin 875/Clav. 125 TAB PO (09:27)
[2023-08-02] MEDS: Gabapentin 100 MG CAP PO ×2 (09:27→13:10)
[2023-08-02] MEDS: Pantoprazole 40 MG TABCR PO (09:28)
[2023-08-02] MEDS: Metoprolol CR 50 MG TABCR PO (09:28)
[2023-08-02] MEDS: Atorvastatin 20 MG TAB PO (09:28)
[2023-08-02] MEDS: Furosemide 40 MG TAB PO ×2 (09:28→15:33)
[2023-08-02] MEDS: Spironolactone 25 MG TAB PO (09:28)
[2023-08-02] MEDS: Sacubitril/Valsartan 24 mg/26 mg TAB 1 EACH PO (09:28)
[2023-08-02] MEDS: QUEtiapine 25 MG TAB 12.5 MG PO (09:37)
--- NOTE | 2023-08-02 09:50 | PT.INTREAT ---
Date of service: 08/02/23 Time of Service: 09:14 PT Notes Visit Reasons: Atrial fibrillation with RVR, Right lower lobe pn Inpatient Physical Therapy Treatment Note [facility] Date: 08/02/23 PRECAUTIONS: Fall, standard, activity as tolerated. Left foot drop. Left AFO brace for ambulation. SUBJECTIVE: Patient reports feeling better today. Eager to get up and walk some, now that she has her AFO. OBJECTIVE: Supine in bed. Agreeable to therapy. ? PAIN: none reported or observed VITALS: monitored by nursing staff ? BED MOBILITY/TRANSFERS? Rolling L/R: independent Supine-sit: independent ? Sit-supine: independent ? Sit-stand: independent ? Stand-sit: independent ? Bed-Chair: SBA ? Chair-bed: SBA ? Therapeutic Exercises ([id number]): Direct one-on-one instruction in therapeutic exercises to develop strength, endurance, range of motion and flexibility. Ambulation ? Assistive Device: FWW, left AFO? Weight bearing: full Assist: SBA ? Distance:? 600 feet ? Deviation: asymmetric step pattern due to AFO. No LOB, no SOB ? Provided skilled instruction in proper exercise performance Provided skilled manual cues to facilitate proper muscle recruitment and/or form. ASSESSMENT:? Patient tolerates therapy well, no dyspnea, no pain. Reports feeling good to have had a change of scenery PLAN: continue global strengthening per plan of care until patient is medically cleared for discharge. TREATMENT CODE/TIME: 36 minutes beginning at 9:14
[2023-08-02] MEDS: Hydrocortisone 1% CR 30 GM TUBE TP ×2 (10:36→13:11)
[2023-08-02] MEDS: Ketoconazole 2% CREAM 15 GM TUBE TP (10:36)
[2023-08-02] MEDS: Metoprolol CR 25 MG TABCR PO (13:48)
--- NOTE | 2023-08-02 14:57 | PCPN_ITS ---
Date of service: 08/02/23 Time of Service: 14:00 Assessment and Plan Assessment and plan (1) Sepsis: Status: Acute Assessment and plan: Sources: preseptal cellulitis + / - pneumonia, present on admission. Improving. She transitioned to oral Abx. She will be discharged home today. Qualifiers: Sepsis type: sepsis due to unspecified organism Sepsis acute organ dysfunction status: without acute organ dysfunction Qualified Code(s): A41.9 - Sepsis, unspecified organism (2) Preseptal cellulitis: Status: Acute Assessment and plan: As above (3) Acute on chronic HFrEF (heart failure with reduced ejection fraction): Status: Acute Assessment and plan: Echocardiogram showed mildly reduced LV systolic function with an EF of 42% with global hypokinesis. RV was normal size with normal RV systolic function. RVSP 31 mm. Mild to moderate mitral regurgitation mild tricuspid regurgitation. (4) Atrial fibrillation with rapid ventricular response: Start date: 07/29/23 Status: Acute (5) Pneumonia: Start date: 07/29/23 Status: Suspected Assessment and plan: Atelectasis vs PNA. Qualifiers: Pneumonia type: due to unspecified organism Laterality: right Lung location: lower lobe of lung Qualified Code(s): J18.9 - Pneumonia, unspecified organism (6) Aspiration into airway: Status: Acute Assessment and plan: Evaluated by ST, recommendations have been made. Qualifiers: Encounter type: initial encounter Qualified Code(s): T17.908A - Unspecified foreign body in respiratory tract, part unspecified causing other injury, initial encounter (7) Pleural effusion, right: Status: Acute (8) Inflammatory bowel disease: Status: Chronic Assessment and plan: Followed by [facility] [place]. (9) Vascular dementia: Status: Chronic Qualifiers: Dementia severity: moderate Dementia behavioral or psychological symptom: with anxiety Qualified Code(s): F01.B4 - Vascular dementia, moderate, with anxiety (10) Essential hypertension: Status: Chronic (11) Hypothyroidism: Status: Chronic Qualifiers: Hypothyroidism type: acquired Qualified Code(s): E03.9 - Hypothyroidism, unspecified (12) Depression: Status: Chronic Qualifiers: Depression Type: reactive depression Qualified Code(s): F32.9 - Major depressive disorder, single episode, unspecified (13) Cirrhosis: Status: Acute Assessment and plan: New diagnosis. Per Hospitalist: Likely contributing to the thrombocytopenia. Viral hepatitis studies were negative. suspect she has cardiac etiology of her cirrhosis or has GARCIA Qualifiers: Hepatic cirrhosis type: unspecified hepatic cirrhosis Ascites presence: without ascites Qualified Code(s): K74.60 - Unspecified cirrhosis of liver (14) Drug eruption: Status: Acute (15) Pancytopenia: Status: Acute Assessment and plan: Probably anemia of chronic disease. (16) Palliative care patient: Status: Acute Assessment and plan: Maegan is an 83 year old female, who has a past medical history of mixed AD and vascular dementia, crohn's and REYNOLDS, who is followed by Palliative and is currently admitted for acute on chronic HF with reduced EF, a-fib with RVR, PNA, facial cellulitis. Palliative was consulted for continuity of care. She was seen for f/u visit per preference. She was seen in her room with her son, Bryan and his , Sushila present. She is discharging home today. Her plan is to return home to her apartment where she lives with her son, Gus. She will have new HH services. She has a very supportive family. Gus works but she has a caregiver, Joshua and her son, Bryan and Sushila visit frequently. She has previously established that she is a DNR/DNI. Follow up with Palliative as scheduled, sooner as needed. Subjective Subjective Interval history since last seen: Maegan was seen for f/u visit per her preference. She enjoys a visit from a familiar face. She is feeling better, she has been weaned off O2, HR appears to be controlled. She will discharge home today. She will return to her apartment with her son, Gus and HH services. She will f/u with Palliative as scheduled. Exam Narrative Exam Narrative: General: very pleasant, elderly female, sitting up in the recliner. She is awake, alert, talkative. She appears fatigued. HEENT: normocephalic, atraumatic, mmm. neck: supple respiratory: respirations appear even and unlabored at rest. Extremities: moves all 4 extremities freely. Objective Last Vital Signs Temp 36.8 C 08/02/23 11:27 Pulse 85 08/02/23 11:27 Resp 18 08/02/23 11:27 BP 112/75 08/02/23 11:27 Pulse Ox 96 08/02/23 11:27 Laboratory Results - last 24 hr 08/02/23 06:30 Sodium 144 Potassium 3.3 L Chloride 108 H Carbon Dioxide 26.8 Anion Gap 9.2 BUN 15 Creatinine 0.8 Est GFR (CKD-EPI 2020) 72.61 Glucose 104 Calcium 8.8 Magnesium 1.8 C-Reactive Protein 1.29 H NT-Pro-B Natriuret Pep 1442 H Procalcitonin < 0.1
--- NOTE | 2023-08-02 16:44 | PDOC.HHF2F ---
Home Health Referral Home Health Orders Clinical synopsis of why skilled professionals are needed: atrial fibrillation w/ rapid ventricular response, facial cellulitis, thrombocytopenia, anemia, acute on chronic systolic CHF Patient needs home health nursing to monitor her response to her medication changes, watch for worsening CHF or atrial fibrillation, monitor resolution of her cellulitis; draw labs (BMP, magnesium level and cbc in one week). Coordinate w/ PCP any clinical changes. P.T consult to treat for deconditioning, general weakness d/t her acute on chronic illness. See inpatient P.T. notes. DIGITAL MANAGER consult to monitor dysphagia and change in her diet. Medical diagnosis necessitation home health referral: as above Registered Nurse: Check all that apply Instruct on new or changed medication(s)/assess compliance: Ordered Physical Therapist: Check all that apply Increase strength & endurance for safe mobility at home: Ordered To design/establish home maintenance program: Ordered Occupational Therapist: Evaluate and treat for patient unable to perform ADL/IADL/self-care: Ordered Speech Therapist: Check all that apply For swallow evaluation/therapy due to dysphagia: Ordered Salon Assistant: Assist with community resources: Ordered Home Bound Status Requires the aid of supportive device (check all that apply): Wheelchair Patient has a condition such that leaving home is medically contraindicated (Describe): worsening work of breathing from CHF and atrial fibrillation Describe why leaving home would require a considerable and taxing effort: Requires frequent rest periods Encounter Date and Reason: I certify that a FTF encounter for this patient was performed on August 02, 2023 and that such encounter was related to the primary reason the patient requires home health services. The encounter was conducted in the following manner: By me as the certifying physician, SENIOR PRODUCT DESIGNER, PA or By an inpatient physician, SENIOR PRODUCT DESIGNER or PA during an inpatient stay who communicated findings to me, Certification And Authentication I certify that I composed the above information based on my clinical judgment relating to this patient's medical condition and, if applicable, clinical findings communicated to me by the NPP or inpatient physician who performed the FTF encounter. Name of Provider that will be monitoring home health services: Elizabeth Hathaway
--- NOTE | 2023-08-02 16:49 | W.PM.DS.N ---
Date of service: 08/02/23 Time of Service: 16:49 DS: Diagnosis Discharge Diagnosis (1) Sepsis: Status: Acute (2) Preseptal cellulitis: Status: Acute (3) Acute on chronic HFrEF (heart failure with reduced ejection fraction): Status: Acute (4) Atrial fibrillation with rapid ventricular response: Status: Acute (5) Pneumonia: Status: Suspected (6) Aspiration into airway: Status: Acute (7) Pleural effusion, right: Status: Acute (8) Inflammatory bowel disease: Status: Chronic (9) Vascular dementia: Status: Chronic (10) Essential hypertension: Status: Chronic (11) Hypothyroidism: Status: Chronic (12) Depression: Status: Chronic (13) Cirrhosis: Status: Acute (14) Drug eruption: Status: Acute (15) Pancytopenia: Status: Acute (16) Palliative care patient: Status: Acute Discharge Plan Disposition Patient Disposition: Home W/Home Health Services Condition: Improving Discharge Details Reason For Visit: Atrial fibrillation with RVR, Right lower lobe pn Admit Date/Time: 07/29/23 22:56 Admit Provider: Brent Carr Attending Provider: Brent Carr Primary Care Provider: Elizabeth Hathaway Hospital Course Hospital Course: 83-year-old female with history of vascular dementia, Crohn's disease, hypertension, hypertensive retinopathy, asthma, remote DVT, hypothyroidism, who presented to the emergency department with acute onset of shortness of breath and nonproductive cough of 1 day duration prior to presenting the emergency department. This has been associated also with a 3-day history of right facial rash and swelling along the right side of her face. She was sent from urgent care to the emergency room because of increased wheezing and dyspnea. On arrival to the emergency department she was found to be in atrial fibrillation. Her pulse was 110 on arrival but EKG demonstrated atrial fibrillation rate at 150 bpm. EKG showed evidence of LVH and ST depression consistent with strain versus ischemia. Blood pressure was elevated on arrival at 140/104 and she had a low-grade fever 37.9. Patient had no symptoms of chest pain or palpitations. Evaluation in the emergency room included a VBG that showed no acidosis with a normal lactate level 1.3 and no hypercarbia. CBC on admission showed a normal white count of 7400 whereas her baseline she has a chronic leukopenia with her white count usually being 3-4000. Hemoglobin on arrival was 11.3 g with macrocytic changes and her platelet count was 95,000. She does have a chronic thrombocytopenia. Her chemistry panel showed normal renal function with BUN of 13 creatinine 0.8. She has chronic mild elevated liver enzymes with AST of 45 alk phosphatase 172. Troponin level was checked and found to be negative her proBNP however was elevated at 3700. Procalcitonin level was normal at less than 0.1 and her TSH was normal at 1.24. CT of the chest was performed with contrast and showed no evidence of pulmonary emboli but shows a moderate size right pleural effusion and some adjacent infiltrate around lung base. CT also shows splenomegaly and some mild ascites and a cirrhotic appearing liver. Patient became hypotensive in the emergency department when her heart rate went up to 150 bpm. She was given a fluid bolus and then started on diltiazem 50 mg IV push. After diltiazem bolus her heart rate improved to 105 to 110 bpm. Hospitalist service was consulted for admission. Patient was admitted to the medical/surgical floor on telemetry monitoring. The migration specialist adjusted her home dose of metoprolol which she been on for hypertension. She was started on Lasix for her CHF. And for her facial cellulitis and pneumonia she was started on IV antibiotics which included vancomycin and cefepime. Over the next couple days her atrial fibrillation rate was under variable control and required further adjustment in her metoprolol dose. She required further IV Lasix. For her pneumonia she was placed on Xopenex aerosol treatments along with pulmonary toiletry with incentive spirometry and acapella. She was never able to produce a sputum. Patient was initially treated with cefepime, doxycycline, vancomycin. This was then shortened to just cefepime. Patient be discharged home with 5 more days of Augmentin. Patient [id number] score was 6 which gives her 9.8% risk of stroke per year. As such patient was started on apixaban 5 mg twice a day for stroke prevention. Can try to get her to goal directed therapy she was started Entresto 24-26 mg 1 p.o. twice daily as well as Jardiance 10 mg daily. Her metoprolol dose was titrated up to 75 mg twice a day using the extended release metoprolol. Patient was discharged home on 40 mg twice a day of Lasix. Patient is to monitor daily weight. Repeat BMP and magnesium level to be done next week to assess renal function and electrolytes. Recommend follow-up with cardiology as an outpatient. Recommend follow-up chest x-ray in 2 to 3 weeks to assess improvement in her pleural effusion. If no improvement then recommend referral for thoracentesis. Home Meds and New Rx's Prescriptions: New furosemide 40 mg Tablet 40 mg PO BID@0830,1600 Qty: 60 0RF Rx Instructions: take lasix at 8 am and 2 pm Eliquis 5 mg Tablet 5 mg PO BID Qty: 60 0RF Jardiance 10 mg Tablet 10 mg PO QAM Qty: 30 0RF potassium chloride 10 mEq Capsule, Extended Release 20 meq PO BID Qty: 120 0RF spironolactone 25 mg Tablet 25 mg PO DAILY Qty: 30 0RF amoxicillin-pot clavulanate 875-125 mg Tablet 1 tab PO BID 5 Days Qty: 10 0RF Entresto 24-26 mg Tablet 1 tab PO BID Qty: 60 0RF metoprolol succinate [Toprol XL] 50 mg tablet extended release 24 hr 75 mg PO BID Qty: 90 0RF Continued mirtazapine 7.5 mg tablet 7.5 mg PO QHS Qty: 90 3RF Rx Instructions: For appetite, mood, and sleep. urea [ANIYAH-Urea] 45 % gel 1 applic topical BID Qty: 28 3RF Rx Instructions: Apply to the callus on the left twice daily ketoconazole 2 % cream 1 applic topical DAILY 180 Days Qty: 60 3RF Rx Instructions: Apply to toenails twice daily gabapentin 100 mg capsule 100 mg PO TID Qty: 270 3RF quetiapine 25 mg tablet See Rx Instructions PO .COMPLEX Qty: 135 3RF Rx Instructions: 12.5mg am and 25mg HS orally; Emgality Pen 120 mg/mL pen injector 120 mg subcut QMONTH Qty: 3 3RF triamcinolone acetonide 0.1 % cream 1 applic topical BID PRN (Reason: R ear & hand dermatitis) Qty: 15 0RF Rx Instructions: Use thin layer to affected areas on hand and R ear up to 2x/d; avoid long-term use (DME) Size M incontinence briefs See Rx Instructions .Route .MEDSUPPLY Qty: 40 11RF Rx Instructions: As directed (typically 1 per day) for urinary incontinence balsalazide 750 mg capsule See Rx Instructions PO TID Rx Instructions: 05/13/19 [facility] [place] [place] G[facility] 1500 mg (2 caps) PO three times a day Venofer 200 mg iron/10 mL solution 300 mg IV [id number] Patient Comments: 08/29/21 q 3m per pt now Rx Instructions: 06/01/20- [facility] [place] Gastro-change infusion to every 4 wks. if hgb below 7 will tranfuse. 05/13/19 [facility] [place] Gastro IVF every 6 weeks. 04/05/21 [facility] Gastro Infuse if Hgb<7. 10/25/21 [facility] [place] Gastro - Q16 weeks atorvastatin 20 mg tablet 20 mg PO DAILY Qty: 90 3RF pantoprazole 40 mg tablet,delayed release (DR/EC) 40 mg PO BID Qty: 180 3RF (DME) BD Blunt Plastic Cannula 17 x 3 mL syringe 1 ea Miscellaneous monthly Qty: 3 12RF Rx Instructions: BD 3ml syringes 25Gx1 for B-12 injections levothyroxine 50 mcg tablet 50 mcg PO DAILY Qty: 90 3RF cyanocobalamin (vitamin B-12) 1,000 mcg/mL solution 1,000 mcg IM monthly Qty: 3 3RF Discontinued aspirin 81 mg tablet 81 mg PO DAILY metoprolol succinate 50 mg tablet extended release 24 hr See Rx Instructions .ROUTE .COMPLEX Qty: 90 3RF Dose Instruction: TAKE ONE TABLET BY MOUTH EVERY DAY FOR BLOOD PRESSURE Rx Instructions: TAKE ONE TABLET BY MOUTH EVERY DAY FOR BLOOD PRESSURE Discharge Instructions Instructions: Empagliflozin (By mouth), Sacubitril/Valsartan (By mouth), Heart Failure (DC) Additional Instructions: You were treated for acute on chronic congestive heart failue which was worsened by rapid atrial fibrillation ( a condition in which the heart beat is irregular and fast). The atrial fibrillation is being controlled w/ the increase in your Toprol (metoprolol succinate) and you were put on apixaban for prevention of strokes (which can often happen when a blood clot travels from the heart to the brain from atrial fibrillation). Furthermore you were treated for cellulitis of the face and a pneumonia. You should continue the antibiotics (Augmentin) for 5 more days. You should get your PCP to order follow up chest xray in 2 to 3 weeks to ensure clearance of the lung infiltrate on the right. Because of some swallowing diffculties a speech therapist saw you and made the following recommendations: DISCHARGE RECOMMENDATIONS: Pending progress/TBD. Anticipate recommended outpatient modified barium swallow study (MBSS) Diet Recommendations: ? SOLIDS: 5-Minced & Moist Solids LIQUIDS: 0-Thin Liquids MEDICATIONS: Small pills whole, 1-3 at a time Large pills 1 at a time and crushed, if able With 4-Purees and 0-Thin liquid wash Alter medications only as advised by MD or Pharmacist RISK MANAGEMENT: Level of Assistance/Supervision: Close/Intermittent supervision for all PO intake with reminders for strategies (renate. small bite size and alternate bites/sips) Pending patient's progress with strategies, may increase independence at next visit. Positioning and environment: PO intake only when awake/alert? Reduce auditory and/or visual distractions when eating Up to chair Oral hygiene BID/2x per day Using friction with toothbrush on all oral structures as tolerated Strategies/Adaptations/Assistive Equipment: Small bites Slow rate of intake Alternate intake of liquids and solids Reflux Precautions: Small+frequent meals throughout day Maintain fully upright position at least 30 minutes after meals Avoid meals/snacks 2-3 hours prior to reclining/sleeping Sleep with head of bed elevated to reduce likelihood of nocturnal reflux Stand Alone Forms: Nursing Discharge Form Referrals: Kina Ruano [SPEECH LANGUAGE PATHOLOGIST] - Elizabeth Hathaway NP [Primary Care Provider] - (please check follow up chest xray in 2 to 3 weeks to ensure clearance of RLL infiltrate; also BMP and magnesium ordered for next week. she should also get follow up CBC, she is anemic and had lower than normal platelet count. Please followup (note aspirin stopped d/t low platelets) Need 14 day cardiac event recorder to assess stability of atrial fibrillation) Activity:: Activity as Tolerated Equipment/Supplies:: No Equipment Needed Diet:: Low Sodium Discharge Orders Discharge Orders: Discharge Order (Routine); Ordered 08/02/23 Ordered By: Archie Cortes Other Ambulatory Orders: Basic Metabolic Panel (Routine) Timeframe: 1 Week Facility: [facility] - Location: Laboratory Outpatient - [facility] Ordered By: Archie Cortes Magnesium (Routine) Timeframe: 1 Week Facility: [facility] - Location: Laboratory Outpatient - [facility] Ordered By: Archie Cortes NT-proBNP (Routine) Timeframe: 1 Week Facility: [facility] - Location: Laboratory Outpatient - [facility] Ordered By: Archie Cortes 14 Day Mechanical Process Engineer (Routine) Timeframe: 10 Day Facility: [facility] - Location: Respiratory Therapy Ordered By: Archie Cortes Discharge Data Discharge Date/Time-TO BE ENTERED AT DEPARTURE: 08/02/23 17:42 DS: Summary Time Spent with Patient providing and/or coordinating discharge services: Greater than 30 minutes Specific discharge activities: Interview/exam of patient; review of discharge instructions, completion of prescriptions/discharge instructions; discussion w/ nursing and CM; documentation of hospital visit Status at Discharge Functional status at discharge: uses cane/walker Overall status at discharge: patient is progressing back to baseline Mental Status: mental status grossly normal Speech and Movement: speech and movement normal Mood: congruent mood Affect: normal affect Quality:SDOH Health Related Social Needs: No Data to Display Exam Narrative Exam Narrative: Maegan is seen sitting up in her chair this morning she is visiting with her family. She is alert and oriented. When told that she could be discharged home today she seemed to have mixed feelings. She has been asking daily when she can go home however she is nervous about returning home in any new medication changes. Her family has assured her that they will help her with any medication changes. Lungs with few scattered end expiratory wheezes no rhonchi or rales, clears with deep breathing Heart is irregularly irregular but at a controlled rate Abdomen soft and nontender Lower extremities no pitting edema. Psych Mental Status: mental status grossly normal Speech and Movement: speech and movement normal Mood: congruent mood Affect: normal affect DS: Data Vitals/I&O Vitals and I&O: Vital Signs Temperature 37.0 C 08/02/23 15:29 Temperature Source Tympanic 08/02/23 15:29 Pulse 117 H 08/02/23 15:29 Pulse Rhythm Regular 08/02/23 15:27 Pulse 108 H 07/30/23 00:00 Respiratory Rate 16 08/02/23 15:29 Respiratory Effort Normal, Non-Labored 08/02/23 15:27 Respiratory Depth Normal 08/02/23 15:27 Respiratory Pattern Normal 08/02/23 15:27 Blood Pressure 111/70 08/02/23 15:29 Blood Pressure Mean 66 07/29/23 23:46 Blood Pressure Position Supine 07/29/23 17:46 Pulse Oximetry 95 08/02/23 15:29 Oxygen Delivery Method Room Air 08/02/23 15:29 Oxygen Flow Rate 0 08/02/23 15:29 Pain Level 7 08/02/23 15:29 Comment Nurse in room when vitals done. 07/31/23 15:24 Intake & Output 08/01/23 08/02/23 08/02/23 23:59 11:59 23:59 Intake Total 50 / 420 250 / 370 120 / 370 Output Total 900 / 1700 900 / 2100 1200 / 2100 Balance -850 / -1280 -650 / -1730 -1080 / -1730 Weight 59.9 kg Intake: IV 50 / 100 Oral 250 / 370 120 / 370 Output: Urine 900 / 1700 900 / 2100 1200 / 2100 Other: Urine Color Yellow Yellow Light Marcela Urine Appearance Clear Clear Clear Urine Odor Normal Comment Changed Purewick. from purwewick. Stool Size Large Stool Characteristics Formed Brown Voiding Methods Bedside Commode Data Completed and Pending Labs on day of discharge: Labs from last 24 hours 08/02/23 06:30 Sodium 144 Potassium 3.3 L Chloride 108 H Carbon Dioxide 26.8 Anion Gap 9.2 BUN 15 Creatinine 0.8 Est GFR (CKD-EPI 2020) 72.61 Glucose 104 Calcium 8.8 Magnesium 1.8 C-Reactive Protein 1.29 H NT-Pro-B Natriuret Pep 1442 H Procalcitonin < 0.1 Preliminary micro results at discharge 07/29/23 19:00 Blood Culture - Preliminary Blood NO GROWTH 72 HOURS 07/29/23 19:10 Blood Culture - Preliminary Blood NO GROWTH 72 HOURS PFSH All Active Problems (Updated 08/03/23 @ 00:02 by ANGEL DELEON) Medication monitoring encounter (Acute) Acute on chronic HFrEF (heart failure with reduced ejection fraction) (Acute) Aspiration into airway (Acute) Discharge planning issues (Acute) DVT prophylaxis (Acute) Pleural effusion, right (Acute) Sepsis (Acute) Pancytopenia (Acute) Drug eruption (Acute) Cirrhosis (Acute) Preseptal cellulitis (Acute) Cellulitis, face (Acute) Elevated liver function tests (Chronic) Thrombocytopenia (Chronic) Atrial fibrillation with rapid ventricular response (Acute) Urinary incontinence (Acute) Inflammatory bowel disease (Chronic) [facility] [place] Gastro Note 04/17/23 Metatarsalgia of left foot (Acute) Corns and callosities (Acute) Nail dystrophy (Acute) Vascular dementia (Chronic) Delusions (Acute) Alzheimer's dementia with agitation (Acute) Palliative care patient (Acute) Dementia (Chronic) Essential hypertension (Chronic) Onychomycosis (Acute ~06/2021) Iron deficiency anemia (Acute) Managed by [facility]. 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) Chronic anemia (Chronic 09/04/17) IBD-Crohns Osteoporosis (Chronic 03/27/16) Migraines (Chronic 09/04/17) Hypothyroidism (Chronic 09/04/17) Depression (Chronic 09/12/17) Crohn's disease with complication (Chronic 09/04/17) Crohn's colitis and ileitis, mild-[facility] Note 08/01/22 B12 deficiency (Chronic 09/04/17) Anxiety (Chronic 09/04/17) Medical History Visual hallucinations Sensorineural hearing loss, bilateral Fall Deep vein thrombosis (DVT) (09/12/17) Mild intermittent asthma without complication (09/12/17) Posterior staphyloma [facility] report dated 04/17/18. Brent Castaneda, OD Astigmatism of both eyes [facility] report dated 04/17/18. Brent Castaneda, OD Grade 1 hypertensive retinopathy Meibomian gland dysfunction (MGD) [facility] exam dated 04/17/18. Brent Castaneda, OD Neck pain (09/04/17) Fatigue (09/04/17) Exacerbation of Crohn's disease Microcytic anemia Nonspecific ST-T wave electrocardiographic changes Dehydration Hypomagnesemia Asthma exacerbation Acute bronchitis Influenza A Surgical History H/O colonoscopy (04/07/18) [facility] [place] Hysterectomy, Laproscopic Hiatal Hernia repair (09/11/17) Repair of umbilical hernia (09/11/17) Social History Smoking/Tobacco Use Status: Never Smoking risk assessment performed?: Yes Alcohol Intake: never Substance use type: does not use Household members: children Housing: apartment Number of Children: 3 Current gender identity: female What is your relationship status?: Panel score (0-1 are the most socially isolated patients): 0 What type of physical activity do you participate in: none Seatbelt use: always Water heater temp set <120 deg: Yes Working smoke detector in home: Yes Fire extinguisher in home: Yes Carbon monox detector in home: Yes Firearms in home: No Do you feel safe at home: Yes Do you feel safe in your relationship?: Yes History History Para 3 Hx # Term Pregnancies Multiple births Hx # Pregnancies Ectopic pregnancies AB induced Hx Number of Living Children AB spontaneous Time Spent with Patient Time Spent with Patient: 45-69 minutes Time was spent: preparing to see the patient(eg.review tests), ordering medications,tests, procedures, referring, communicating with other health pediatric care coordinator, indepentently interpreting results, counseling the patient and care coordination
--- NOTE | 2023-08-02 17:32 | CMDISCH_ITS ---
Date of service: 08/02/23 Time of Service: 17:32 LACE Index Scoring Tool Questions: Length of Stay (in days): 4 - 6 Was the patient admitted via the E.D.?: Yes Comorbidities: Congestive Heart Failure and Liver or Renal Disease E.D. Visits: 0 Answers: Total Score: 12 Risk of Readmission: High Risk Care Management Discharge Plan Reason for Hospitalization: Afib with RVR, PNA Discharge Plan: Maegan returned home today with new orders for HH RN, PT, OT, HUMAN RESOURCES SAFETY MANAGER. Her son will drive her home via private vehicle. She has a very supportive family, who help to take care of her. She will follow up with her PCP and discharge plan of care. She was happy to be going home. Patient/Family Education Needs: Review discharge instructions and limitations, discussion of self care needs including ask me three. Services Needed at Discharge: Home Health Care Services (HH RN, PT, OT, HUMAN RESOURCES SAFETY MANAGER) SDOH Health Related Social Needs: No Data to Display
[2023-08-02 21:59] LABS: Streptococcus Pneumoniae Ag, U Negative (Negative)
== END 2023-08-02 17:42 | disposition home health service (06) | DRG 871 ==
LOC: ER 07-30 00:07 → MS 07-30 00:16
PROVIDERS: Internal Medicine; Nurse Practitioner Acute Care; Admitting Provider Family Medicine; Emergency Provider Physician Assistant; PCP Nurse Practitioner Adult Health; Visit Provider Family Medicine
DX: A41.9 Sepsis, unspecified organism (principal); I50.23 Acute on chronic systolic (congestive) heart failure; J18.9 Pneumonia, unspecified organism; F01.B4 Vascular dementia, moderate, with anxiety; L03.213 Periorbital cellulitis; J90 Pleural effusion, not elsewhere classified; D61.818 Other pancytopenia; F02.811 Dementia in other diseases classified elsewhere, unspecified severity, with agitation; K50.90 Crohn's disease, unspecified, without complications; R18.8 Other ascites; I48.91 Unspecified atrial fibrillation; D69.6 Thrombocytopenia, unspecified; I11.0 Hypertensive heart disease with heart failure; E03.9 Hypothyroidism, unspecified; F32.A Depression, unspecified; K74.60 Unspecified cirrhosis of liver; L27.0 Generalized skin eruption due to drugs and medicaments taken internally; G43.809 Other migraine, not intractable, without status migrainosus; Z66 Do not resuscitate; R79.89 Other specified abnormal findings of blood chemistry; R32 Unspecified urinary incontinence; G30.9 Alzheimer's disease, unspecified; H90.3 Sensorineural hearing loss, bilateral; M81.0 Age-related osteoporosis without current pathological fracture; M21.372 Foot drop, left foot; N32.81 Overactive bladder; D50.9 Iron deficiency anemia, unspecified; J45.20 Mild intermittent asthma, uncomplicated; I08.1 Rheumatic disorders of both mitral and tricuspid valves; T17.928A Food in respiratory tract, part unspecified causing other injury, initial encounter; R16.1 Splenomegaly, not elsewhere classified
CPT/HCPCS: 00123; 36415; 71275; 80048; 80053; 80076; 82805; 84145; 85027; 86704; 86706; 86803; 87040; 87340; 87637; 87641; 92526; 92610; 93005; 94640; 96365; 96375; 97110; 97161; 97530; 99285; 70487; 74221; 76700; 80202; 81003; 81015; 82607; 82728; 82746; 83540; 83550; 83605; 83735; 83880; 84443; 84484; 85025; 85379; 85610; 86140; 87899; 93010; 93306; 99223; 99233; 99239; J0692; J1940; J1941; J3372; J3490; J7620

== ENCOUNTER 2023-08-12 16:46 | Inpatient (IN) | payer MEDICARE, OTHER, MEDICAID, SELFPAY ==
[2023-08-12] VITALS (62 sets, daily range): BP systolic 71–133; BP diastolic 33–97; PULSE 55–116; RESP 11–26; TEMP 36.2; O2SAT 85–99
--- NOTE | 2023-08-12 17:45 | DI.RAD_ITS ---
Exam(s) XR CHEST 2V PA LATERAL EXAM: XR CHEST 2V PA LATERAL CLINICAL HISTORY: dizziness TECHNIQUE: 2D digital imaging was performed of the chest. Two images were obtained. PA and lateral views were obtained. COMPARISON: CR,RF RF BARIUM SWALLOW from 07/31/2023 FINDINGS: MEDIASTINUM: Normal. HEART: Normal. PULMONARY VASCULATURE: Normal. LUNGS: There is scarring or atelectasis in the right lung base. PLEURAL SPACE: No pleural effusion or pneumothorax. BONE:Within normal limits for the patient's age. OTHER FINDINGS:The patient has an external Holter device in place. IMPRESSION: No acute pulmonary findings. DATA REPOSITORY: RADIATION DOSE DELIVERED:
--- NOTE | 2023-08-12 17:45 | RT.EKG_ITS ---
APPROVED REPORT Exam: Resting ECG Reason for Exam: Low BP Patient Location: E HR:80 bpm ECG Measurements Heart Rate 80 AXIS DC [id number] P [id number] QRSd 80 QRS -7 QT 386 T 17 QTc 447 Conclusion Atrial fibrillation...? atrial activity Low voltage, precordial leads...precordial leads <1.0mV
--- NOTE | 2023-08-12 17:47 | W.ED.GENAD ---
HPI General Mode of arrival: wheelchair. Date/Time Provider Initiated Documentation: 08/12/23 16:50. Limitations to Documentation: no limitations. Information obtained by: patient. HPI Narrative: Presents to the emergency department for evaluation of increased weakness and reported hypotension. Recent medication changes include increased metoprolol dose. Feels dizzy with activity. Denies chest pain shortness of breath syncope nausea vomiting fever. Related Data Home Medications Medication Instructions Recorded Confirmed balsalazide 750 mg capsule See Rx Instructions PO TID 05/14/19 08/12/23 iron sucrose 200 mg iron/10 mL 300 mg IV [id number] 10/26/21 08/12/23 intravenous solution (Venofer) atorvastatin 20 mg tablet 20 mg PO DAILY #90 tabs 09/24/22 08/12/23 pantoprazole 40 mg tablet,delayed 40 mg PO BID #180 tabs 09/24/22 08/12/23 release syringe with cannula,disposabl 17 #3 SYRGS 10/22/22 08/12/23 x 3 mL (BD Blunt Plastic Cannula) levothyroxine 50 mcg tablet 50 mcg PO DAILY #90 tabs 12/10/22 08/12/23 mirtazapine 7.5 mg tablet 7.5 mg PO QHS #90 tabs 12/13/22 08/12/23 urea 45 % topical gel (ANIYAH-Urea) 1 applic topical BID #28 mL 03/07/23 08/12/23 gabapentin 100 mg capsule 100 mg PO TID #270 caps 04/30/23 08/12/23 ketoconazole 2 % topical cream 1 applic topical DAILY 6 months 05/16/23 08/12/23 #60 grams cyanocobalamin (vitamin B-12) 1,000 mcg IM monthly #3 vials 06/19/23 08/12/23 1,000 mcg/mL injection solution quetiapine 25 mg tablet See Rx Instructions PO .COMPLEX 06/27/23 08/12/23 #135 tabs Size M incontinence briefs #40 ea 07/25/23 08/12/23 galcanezumab-gnlm 120 mg/mL 120 mg subcut QMONTH #3 mL 07/25/23 08/12/23 subcutaneous pen injector (Emgality Pen) triamcinolone acetonide 0.1 % 1 applic topical BID PRN R ear & 07/25/23 08/12/23 topical cream hand dermatitis #15 grams apixaban 5 mg tablet (Eliquis) 5 mg PO BID #60 tabs 08/02/23 08/12/23 empagliflozin 10 mg tablet 10 mg PO QAM #30 tabs 08/02/23 08/12/23 (Jardiance) furosemide 40 mg tablet 40 mg PO BID@0830,1600 #60 tabs 08/02/23 08/12/23 metoprolol succinate 50 mg 75 mg (1.5 x 50 mg) PO BID #90 tabs 08/02/23 08/12/23 tablet,extended release 24 hr (Toprol XL) potassium chloride 10 mEq 20 meq (2 x 10 mEq) PO BID #120 08/02/23 08/12/23 capsule,extended release caps sacubitril 24 mg-valsartan 26 mg 1 tab PO BID #60 tabs 08/02/23 08/12/23 tablet (Entresto) spironolactone 25 mg tablet 25 mg PO DAILY #30 tabs 08/02/23 08/12/23 Previous Rx's Medication Instructions Recorded atorvastatin 20 mg tablet 20 mg PO DAILY #90 tabs 09/24/22 pantoprazole 40 mg tablet,delayed 40 mg PO BID #180 tabs 09/24/22 release syringe with cannula,disposabl 17 #3 SYRGS 10/22/22 x 3 mL (BD Blunt Plastic Cannula) levothyroxine 50 mcg tablet 50 mcg PO DAILY #90 tabs 12/10/22 mirtazapine 7.5 mg tablet 7.5 mg PO QHS #90 tabs 12/13/22 urea 45 % topical gel (ANIYAH-Urea) 1 applic topical BID #28 mL 03/07/23 gabapentin 100 mg capsule 100 mg PO TID #270 caps 04/30/23 ketoconazole 2 % topical cream 1 applic topical DAILY 6 months 05/16/23 #60 grams cyanocobalamin (vitamin B-12) 1,000 mcg IM monthly #3 vials 06/19/23 1,000 mcg/mL injection solution quetiapine 25 mg tablet See Rx Instructions PO .COMPLEX 06/27/23 #135 tabs Size M incontinence briefs #40 ea 07/25/23 galcanezumab-gnlm 120 mg/mL 120 mg subcut QMONTH #3 mL 01/04/24 subcutaneous pen injector (Emgality Pen) triamcinolone acetonide 0.1 % 1 applic topical BID PRN R ear & 07/25/23 topical cream hand dermatitis #15 grams apixaban 5 mg tablet (Eliquis) 5 mg PO BID #60 tabs 08/02/23 empagliflozin 10 mg tablet 10 mg PO QAM #30 tabs 08/02/23 (Jardiance) furosemide 40 mg tablet 40 mg PO BID@0830,1600 #60 tabs 08/02/23 metoprolol succinate 50 mg 75 mg (1.5 x 50 mg) PO BID #90 tabs 08/02/23 tablet,extended release 24 hr (Toprol XL) potassium chloride 10 mEq 20 meq (2 x 10 mEq) PO BID #120 08/02/23 capsule,extended release caps sacubitril 24 mg-valsartan 26 mg 1 tab PO BID #60 tabs 08/02/23 tablet (Entresto) spironolactone 25 mg tablet 25 mg PO DAILY #30 tabs 08/02/23 Allergies Allergy/AdvReac Type Severity Reaction Status Date / Time acetaminophen AdvReac Intermediate Headache Verified 08/12/23 17:03 ibuprofen AdvReac Intermediate Headache Verified 08/12/23 17:03 lactose intolerant AdvReac Intermediate cramps, Uncoded 08/12/23 17:03 diarrhea General Stated Complaint: Dizzy/Sync ADALGISA: 3 Review of Systems All systems reviewed & are unremarkable except as noted in HPI and below Exam Const General: cooperative, no acute distress and frail appearing Nutritional Appearance: thin Orientation: alert and awake HENIA Head: normal to inspection Mouth: moist mucous membranes Eyes General: appearance normal, both eyes and all related structures Neck Neck: normal visual inspection Resp Effort & Inspection: normal respiratory effort and able to speak in complete sentences Cardio Rate: regular rate Rhythm: regular rhythm Skin General skin exam: no rashes or lesions noted Neuro General: patient alert, patient awake and patient oriented x3 Extrem General: normal to inspection, full ROM and no pedal edema Psych Mental Status: mental status grossly normal Course Vital Signs Vital signs: Vital Signs Temperature 36.2 C L 08/12/23 17:01 Pulse 58 L 08/12/23 17:01 Respiratory Rate 18 08/12/23 17:01 Blood Pressure 114/66 08/12/23 17:01 Pulse Oximetry 99 08/12/23 17:01 Temperature 36.2 C L 08/12/23 17:01 Temperature Source Skin 08/12/23 17:01 Pulse 58 L 08/12/23 17:01 Respiratory Rate 18 08/12/23 17:01 Blood Pressure 114/66 08/12/23 17:01 Blood Pressure Position Sitting 08/12/23 17:01 Pulse Oximetry 99 08/12/23 17:01 Oxygen Delivery Method Room Air 08/12/23 17:01 Oxygen Flow Rate 0 08/12/23 17:01 Pain Level 0 08/12/23 17:01 Medical Decision Making This is an 83-year-old female patient recently discharged from the hospital at follow-up appointment with primary care provider reporting weakness dizziness found to be hypotensive and bradycardic. She was referred here for evaluation. She arrives here normotensive with a pulse of 58. She was placed on nurse monitoring will check routine lab including CBC CMP troponin BNP to rule out electrolyte abnormality and dehydration. Will check orthopedic vital signs. Orthostatic vital signs checked and are unremarkable patient remains asymptomatic and with no dysrhythmia on telemetry while awaiting labs. IV fluid bolus started 500 mL initiated. 1950-while awaiting urine sample which was obtained patient resting quietly in bed and vital recheck shows systolic blood pressure in the 70s. She denied any symptoms at that time. Recheck of her blood pressure has improved to 96/64 pulse of 96. Review of patient's home blood pressures show systolic blood pressure of 80-90. For the past week. Labs are reviewed and patient shown to have acute kidney injury thought possibly due to a combination of some dehydration and low blood pressures all week. Will contact hospitalist services to refer patient to observation for medication adjustment and further hemodynamic monitoring Medical Records Medical records reviewed: Yes I reviewed the patient's medical records. Lab Data Lab results reviewed: Yes I reviewed the patient's lab results. Lab results narrative: Laboratory Tests Range/Units 08/12/23 18:27 WBC (4.4-10.8) 10^3/uL 6.77 RBC (3.93-5.22) 10^6/uL 4.76 Hgb (11.2-15.7) g/dL 14.5 Hct (36.0-46.0) % 45.3 MCV (80-95) fL 95 MCH (27.0-33.0) pg 30.5 MCHC (32.0-36.0) % 32.0 RDW (11.7-14.6) % 14.1 Plt Count (130-400) 10^3/uL 185 MPV (8.0-11.0) fL 10.9 Immature Gran % 0.3 Neutrophils % 74.3 Lymphocytes % 17.6 Monocytes % 4.7 Eosinophils % 1.6 Basophils % 1.5 Nucleated RBC % (0.0-0.3) % 0.0 Absolute Neutrophils (1.2-6.7) 10^3/uL 5.03 Absolute Lymphocytes (1.2-3.4) 10^3/uL 1.19 L Absolute Monocytes (0.1-0.8) 10^3/uL 0.32 Absolute Eosinophils (0.0-0.7) 10^3/uL 0.11 Absolute Basophils (0.0-0.2) 10^3/uL 0.10 Sodium (136-145) mmol/L 136 Potassium (3.5-5.1) mmol/L 5.3 H Chloride (98-107) mmol/L 99 Carbon Dioxide (21.0-32.0) mmol/L 28.0 Anion Gap (3-11) mmol/L 9.0 BUN (7-18) mg/dL 40 H Creatinine (0.55-1.02) mg/dL 1.7 H Est GFR (CKD-EPI 2020) (mL/min/1.73m2) 29.39 Glucose (74-106) mg/dL 127 H Calcium (8.5-10.1) mg/dL 9.5 Magnesium (1.8-2.4) mg/dL 2.8 H Total Bilirubin (0.2-1.0) mg/dL 0.7 AST (15-37) U/L 44 H ALT (14-59) U/L 22 Alkaline Phosphatase (46-116) U/L 176 H Troponin I (< or =60) ng/L < 50 Total Protein (6.4-8.2) g/dL 8.6 H Albumin (3.4-5.0) g/dL 3.8 Quality:SDOH Health Related Social Needs: No Data to Display PFSH All Active Problems (Updated 08/12/23 @ 22:32 by Brent Carr) Hypotension (Acute) SHAILESH (acute kidney injury) (Acute) Heart failure with reduced ejection fraction (Acute) Acute on chronic HFrEF (heart failure with reduced ejection fraction) (Acute) Aspiration into airway (Acute) Pleural effusion, right (Acute) Sepsis (Acute) Pancytopenia (Acute) Cirrhosis (Acute) Preseptal cellulitis (Acute) Elevated liver function tests (Chronic) Thrombocytopenia (Chronic) Atrial fibrillation with rapid ventricular response (Acute) Urinary incontinence (Acute) Inflammatory bowel disease (Chronic) [facility] Note 04/17/23 Metatarsalgia of left foot (Acute) Corns and callosities (Acute) Nail dystrophy (Acute) Vascular dementia (Chronic) Delusions (Acute) Alzheimer's dementia with agitation (Acute) Palliative care patient (Acute) Dementia (Chronic) Essential hypertension (Chronic) Onychomycosis (Acute ~06/2021) Iron deficiency anemia (Acute) Managed by [facility] [place] [facility]. 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) Chronic anemia (Chronic 09/04/17) IBD-Crohns Osteoporosis (Chronic 03/27/16) Migraines (Chronic 09/04/17) Hypothyroidism (Chronic 09/04/17) Depression (Chronic 09/12/17) Crohn's disease with complication (Chronic 09/04/17) Crohn's colitis and ileitis, mild-[facility] Note 08/01/22 B12 deficiency (Chronic 09/04/17) Anxiety (Chronic 09/04/17) Medical History Visual hallucinations Sensorineural hearing loss, bilateral Fall Deep vein thrombosis (DVT) (09/12/17) Mild intermittent asthma without complication (09/12/17) Posterior staphyloma [facility] report dated 04/17/18. Brent Castaneda, OD Astigmatism of both eyes [facility] report dated 04/17/18. Brent Castaneda, OD Grade 1 hypertensive retinopathy Meibomian gland dysfunction (MGD) [facility] exam dated 04/17/18. Brent Castaneda, OD Neck pain (09/04/17) Fatigue (09/04/17) Exacerbation of Crohn's disease Microcytic anemia Nonspecific ST-T wave electrocardiographic changes Dehydration Hypomagnesemia Asthma exacerbation Acute bronchitis Influenza A Surgical History H/O colonoscopy (04/07/18) [facility] Hysterectomy, Laproscopic Hiatal Hernia repair (09/11/17) Repair of umbilical hernia (09/11/17) Social History Smoking/Tobacco Use Status: Never Smoking risk assessment performed?: Yes Alcohol Intake: never Substance use type: does not use Household members: children Housing: apartment Number of Children: 3 Current gender identity: female What is your relationship status?: Panel score (0-1 are the most socially isolated patients): 0 What type of physical activity do you participate in: none Seatbelt use: always Water heater temp set <120 deg: Yes Working smoke detector in home: Yes Fire extinguisher in home: Yes Carbon monox detector in home: Yes Firearms in home: No Do you feel safe at home: Yes Do you feel safe in your relationship?: Yes History History Para 3 Hx # Term Pregnancies Multiple births Hx # Pregnancies Ectopic pregnancies AB induced Hx Number of Living Children AB spontaneous Discharge Plan Disposition Patient Disposition: Admit to [facility] Condition: Stable Discharge Details Chief Complaint: Dizzy/Sync Clinical Impression: Acute kidney injury, Acute hypotension Primary Care Provider: Elizabeth Hathaway ED Provider: Leti Ramos [place] Meds and New Rx's Prescriptions: No Action mirtazapine 7.5 mg tablet 7.5 mg PO QHS Qty: 90 3RF Rx Instructions: For appetite, mood, and sleep. urea [ANIYAH-Urea] 45 % gel 1 applic topical BID Qty: 28 3RF Rx Instructions: Apply to the callus on the left twice daily ketoconazole 2 % cream 1 applic topical DAILY 180 Days Qty: 60 3RF Rx Instructions: Apply to toenails twice daily gabapentin 100 mg capsule 100 mg PO TID Qty: 270 3RF quetiapine 25 mg tablet See Rx Instructions PO .COMPLEX Qty: 135 3RF Rx Instructions: 12.5mg am and 25mg HS orally; Emgality Pen 120 mg/mL pen injector 120 mg subcut QMONTH Qty: 3 3RF triamcinolone acetonide 0.1 % cream 1 applic topical BID PRN (Reason: R ear & hand dermatitis) Qty: 15 0RF Rx Instructions: Use thin layer to affected areas on hand and R ear up to 2x/d; avoid long-term use (DME) Size M incontinence briefs See Rx Instructions .Route .MEDSUPPLY Qty: 40 11RF Rx Instructions: As directed (typically 1 per day) for urinary incontinence balsalazide 750 mg capsule See Rx Instructions PO TID Rx Instructions: 05/13/19 [facility] [place] Gastro 1500 mg (2 caps) PO three times a day Venofer 200 mg iron/10 mL solution 300 mg IV [id number] Patient Comments: 08/29/21 q 3m per pt now Rx Instructions: 06/01/20- [facility] Gastro-change infusion to every 4 wks. if hgb below 7 will tranfuse. 05/13/19 [facility] [place] Gastro IVF every 6 weeks. 04/05/21 [facility] [place] [facility] Infuse if Hgb<7. 10/25/21 [facility] Gastro - Q16 weeks atorvastatin 20 mg tablet 20 mg PO DAILY Qty: 90 3RF pantoprazole 40 mg tablet,delayed release (DR/EC) 40 mg PO BID Qty: 180 3RF (DME) BD Blunt Plastic Cannula 17 x 3 mL syringe 1 ea Miscellaneous monthly Qty: 3 12RF Rx Instructions: BD 3ml syringes 25Gx1 for B-12 injections levothyroxine 50 mcg tablet 50 mcg PO DAILY Qty: 90 3RF cyanocobalamin (vitamin B-12) 1,000 mcg/mL solution 1,000 mcg IM monthly Qty: 3 3RF furosemide 40 mg Tablet 40 mg PO BID@0830,1600 Qty: 60 0RF Rx Instructions: take lasix at 8 am and 2 pm Eliquis 5 mg Tablet 5 mg PO BID Qty: 60 0RF Jardiance 10 mg Tablet 10 mg PO QAM Qty: 30 0RF potassium chloride 10 mEq Capsule, Extended Release 20 meq PO BID Qty: 120 0RF spironolactone 25 mg Tablet 25 mg PO DAILY Qty: 30 0RF Entresto 24-26 mg Tablet 1 tab PO BID Qty: 60 0RF metoprolol succinate [Toprol XL] 50 mg tablet extended release 24 hr 75 mg PO BID Qty: 90 0RF
[2023-08-12 18:34] LABS: Abs Immature Grans 0.02 10^3/uL (0.0-0.06); Absolute Eosinophil Count 0.11 10^3/uL (0.0-0.7); Absolute Lymphocyte Count 1.19 10^3/uL (1.2-3.4); Absolute Monocyte Count 0.32 10^3/uL (0.1-0.8); Absolute Neutrophil Count 5.03 10^3/uL (1.2-6.7); Basophils % 1.5; Eosinophils % 1.6; HCT 45.3 % (36.0-46.0); HGB 14.5 g/dL (11.2-15.7); Immature Grans % 0.3; Lymphocytes % 17.6; MCH 30.5 pg (27.0-33.0); MCV 95 fL (80-95); MPV 10.9 fL (8.0-11.0); Monocytes % 4.7; Neutrophils % 74.3; Platelet Count 185 10^3/uL (130-400); RBC 4.76 10^6/uL (3.93-5.22); RDW 14.1 % (11.7-14.6); RDW-SD 49.3 fL; WBC 6.77 10^3/uL (4.4-10.8)
[2023-08-12 18:51] LABS: ALT 22 U/L (14-59); AST 44 U/L (15-37); Albumin 3.8 g/dL (3.4-5.0); Alkaline Phosphatase 176 U/L (46-116); BUN 40 mg/dL (7-18); Bilirubin, Total 0.7 mg/dL (0.2-1.0); CREATININE 1.7 mg/dL (0.55-1.02); Calcium 9.5 mg/dL (8.5-10.1); Chloride 99 mmol/L (98-107); Estimated GFR 29.39 (mL/min/1.73m2); Glucose 127 mg/dL (74-106); Magnesium 2.8 mg/dL (1.8-2.4); Potassium 5.3 mmol/L (3.5-5.1); Sodium 136 mmol/L (136-145); Total Protein 8.6 g/dL (6.4-8.2); Troponin I < 50 ng/L (< or =60)
--- NOTE | 2023-08-12 19:17 | DI.VRAD_ITS ---
PROCEDURE INFORMATION: Exam: XR Chest Exam date and time: 08/12/2023 6:51 PM Age: 83 years old Clinical indication: Other: Dizziness, TECHNIQUE: Imaging protocol: Radiologic exam of the chest. Views: 2 views. COMPARISON: CT CHEST PE CTA 07/29/2023 8:14 PM FINDINGS: Tubes, catheters and devices: External support device projecting over the mediastinum. Lungs: Minimal right basilar atelectasis. Focal eventration of the right anterior hemidiaphragm. Pleural spaces: Unremarkable. No pleural effusion. No pneumothorax. Heart/Mediastinum: Small-sized hiatal hernia. Bones/joints: Mild multilevel thoracic spine degenerative disc space narrowing. IMPRESSION: No acute cardiopulmonary abnormality. Dictated and Authenticated by: Shahriar Price MD. Ordering:JOSEFA Landeros MD
[2023-08-12] MEDS: Normal Saline 500 ML IV (19:39)
[2023-08-12 21:28] LABS: Bilirubin Negative (Negative); Blood Negative (Negative); Clarity Sl Cloudy (Clear); Glucose 100 mg/dL (Negative); Ketones Negative (Negative); Leukocyte Esterase Moderate (Negative); Nitrite Negative (Negative); Specific Gravity 1.015 (1.005-1.025); Urobilinogen 0.2 mg/dL (Up to 0.2)
[2023-08-12 21:45] LABS: Bacteria Many HPF (Negative); C & S Indicated? No/Sq. Contamination; Crystals Negative HPF (Negative); Epithelial Cells Many HPF (Negative); Mucus Negative (Negative); Other Cells Few Yeast (Negative); RBC 0-2 HPF (0-2)
[2023-08-12 21:53] LABS: Troponin I < 50 ng/L (< or =60)
--- NOTE | 2023-08-12 22:30 | W.PM.HP.N ---
Date of service: 08/12/23 Time of Service: 22:30 Assessment and Plan Assessment and plan (1) Hypotension: Start date: 08/12/23 Status: Acute Assessment and plan: This is an 83-year-old lady who was recently admitted with sepsis syndrome and cellulitis of her face which is cleared but also had new onset atrial fibrillation initiated on increased dose of metoprolol and Eliquis as well as exacerbation of CHF with reduced left-ventricular ejection fraction and increased diuretics now presenting with hypotension probably from overtreatment of her CHF. She also has SHAILESH with a consequence of overdiuresis with her potassium elevated being on spironolactone with Lasix. Her Lasix will be held and metoprolol reduced but not stopped. Entresto will be held for now and if she improves with gentle IV hydration, Entresto may be reintroduced. She does not appear to have any acute decompensation of her heart with negative troponin and no change in her cardiac tracings. She is a DNR/DNI. Qualifiers: Hypotension type: hypotension due to drug Qualified Code(s): I95.2 - Hypotension due to drugs (2) SHAILESH (acute kidney injury): Start date: 08/12/23 Status: Acute Assessment and plan: Patient's creatinine is elevated from baseline and Lasix will be withheld but she will be continued on spironolactone. She also has hyperkalemia which should correct with gentle IV hydration. Gentle IV hydration with trending labs and reintroduction of appropriate diuretics as patient tolerates. (3) Heart failure with reduced ejection fraction: Status: Chronic Assessment and plan: Patient has hypotension and SHAILESH secondary to multiple meds initiated with her last hospitalization. Adjust diuretics noted will not be stopped chronically. Entresto will be held and reintroduce as tolerated after gentle IV hydration for SHAILESH. Trend labs and vital signs. (4) Chronic atrial fibrillation: Status: Chronic Assessment and plan: Adjust beta-fanta as discussed continue Eliquis. (5) Hypothyroidism: Status: Chronic Assessment and plan: TSH was controlled with last hospitalization and patient will continue usual dose of levothyroxine. Qualifiers: Hypothyroidism type: acquired Qualified Code(s): E03.9 - Hypothyroidism, unspecified History of Present Illness History of Present Illness Chief Complaint: Weakness with falling Narrative: This is an 83-year-old female patient who was recently admitted for sepsis syndrome with cellulitis over her face and acute on chronic CHF with reduced left-ventricular ejection fraction and new onset atrial fibrillation. She also had pneumonia and has a history of vascular dementia chronically. She lives with her son who is her coremaker pipe. She did have modification of her medical therapy for CHF with metoprolol increased also to help with heart rate control which is still helping and was discharged on Eliquis. She was initiated on the initial dose of Entresto and was continued on diuretics daily with spironolactone chronically. She does have a history of cirrhosis. At home she began to have progressive weakness and fell when putting some of the weight in her closet where she sat down. She did not injure herself. She had no chest pain or peripheral edema worsening. She denies any significant shortness of breath. She has had no fever. She has recovered from her infectious processes. She was seen in her outpatient clinic and noted to be hypotensive with systolic below 90 with symptoms. She was into the ED for evaluation and continued to have intermittent systolic blood pressures below 90 and into the 80 range. She was given gentle IV hydration and Lasix was withheld. She was admitted for adjustment of her medical therapy with slight SHAILESH and continue gentle hydration. Her medications would be held until modified but she will need to have some chronic diuresis with closer supervision. She is a DNR/DNI. Review of Systems Narrative: 13 point review of systems otherwise unrevealing or stable. [facility] All Active Problems (Updated 08/13/23 @ 06:17 by Brent Carr) Chronic atrial fibrillation (Chronic) Hypotension (Acute) SHAILESH (acute kidney injury) (Acute) Heart failure with reduced ejection fraction (Chronic) Acute on chronic HFrEF (heart failure with reduced ejection fraction) (Acute) Aspiration into airway (Acute) Pleural effusion, right (Acute) Sepsis (Acute) Pancytopenia (Acute) Cirrhosis (Acute) Preseptal cellulitis (Acute) Elevated liver function tests (Chronic) Thrombocytopenia (Chronic) Atrial fibrillation with rapid ventricular response (Acute) Urinary incontinence (Acute) Inflammatory bowel disease (Chronic) [facility] [place] [facility] Note 04/17/23 Metatarsalgia of left foot (Acute) Corns and callosities (Acute) Nail dystrophy (Acute) Vascular dementia (Chronic) Delusions (Acute) Alzheimer's dementia with agitation (Acute) Palliative care patient (Acute) Dementia (Chronic) Essential hypertension (Chronic) Onychomycosis (Acute ~06/2021) Iron deficiency anemia (Acute) Managed by [facility] [place] [facility]. 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) Chronic anemia (Chronic 09/04/17) IBD-Crohns Osteoporosis (Chronic 03/27/16) Migraines (Chronic 09/04/17) Hypothyroidism (Chronic 09/04/17) Depression (Chronic 09/12/17) Crohn's disease with complication (Chronic 09/04/17) Crohn's colitis and ileitis, mild-[facility] [place] Note 08/01/22 B12 deficiency (Chronic 09/04/17) Anxiety (Chronic 09/04/17) Medical History Visual hallucinations Sensorineural hearing loss, bilateral Fall Deep vein thrombosis (DVT) (09/12/17) Mild intermittent asthma without complication (09/12/17) Posterior staphyloma [facility] report dated 04/17/18. Brent Castaneda, OD Astigmatism of both eyes [facility] report dated 04/17/18. Brent Castaneda, OD Grade 1 hypertensive retinopathy Meibomian gland dysfunction (MGD) [facility] exam dated 04/17/18. Brent Castaneda, OD Neck pain (09/04/17) Fatigue (09/04/17) Exacerbation of Crohn's disease Microcytic anemia Nonspecific ST-T wave electrocardiographic changes Dehydration Hypomagnesemia Asthma exacerbation Acute bronchitis Influenza A Surgical History H/O colonoscopy (04/07/18) [facility] [place] Hysterectomy, Laproscopic Hiatal Hernia repair (09/11/17) Repair of umbilical hernia (09/11/17) Social History Smoking/Tobacco Use Status: Never Smoking risk assessment performed?: Yes Alcohol Intake: never Substance use type: does not use Household members: children Housing: house Number of Children: 3 Current gender identity: female What is your relationship status?: Panel score (0-1 are the most socially isolated patients): 0 What type of physical activity do you participate in: none Seatbelt use: always Water heater temp set <120 deg: Yes Working smoke detector in home: Yes Fire extinguisher in home: Yes Carbon monox detector in home: Yes Firearms in home: No Do you feel safe at home: Yes Do you feel safe in your relationship?: Yes History History Para 3 Hx # Term Pregnancies Multiple births Hx # Pregnancies Ectopic pregnancies AB induced Hx Number of Living Children AB spontaneous Meds Allergies and Home Medications Allergies Allergy/AdvReac Type Severity Reaction Status Date / Time acetaminophen AdvReac Intermediate Headache Verified 08/12/23 17:03 ibuprofen AdvReac Intermediate Headache Verified 08/12/23 17:03 lactose intolerant AdvReac Intermediate cramps, Uncoded 08/12/23 17:03 diarrhea Home Medications Medication Instructions Recorded Confirmed Type balsalazide 750 mg capsule See Rx Instructions PO TID 05/14/19 08/12/23 History iron sucrose 200 mg iron/10 mL 300 mg IV [id number] 10/26/21 08/12/23 History intravenous solution (Venofer) atorvastatin 20 mg tablet 20 mg PO DAILY #90 tabs 09/24/22 08/12/23 Rx pantoprazole 40 mg tablet,delayed 40 mg PO BID #180 tabs 09/24/22 08/12/23 Rx release syringe with cannula,disposabl 17 #3 SYRGS 10/22/22 08/12/23 Rx x 3 mL (BD Blunt Plastic Cannula) levothyroxine 50 mcg tablet 50 mcg PO DAILY #90 tabs 12/10/22 08/12/23 Rx mirtazapine 7.5 mg tablet 7.5 mg PO QHS #90 tabs 12/13/22 08/12/23 Rx urea 45 % topical gel (ANIYAH-Urea) 1 applic topical BID #28 mL 03/07/23 08/12/23 Rx gabapentin 100 mg capsule 100 mg PO TID #270 caps 04/30/23 08/12/23 Rx ketoconazole 2 % topical cream 1 applic topical DAILY 6 months 05/16/23 08/12/23 Rx #60 grams cyanocobalamin (vitamin B-12) 1,000 mcg IM monthly #3 vials 06/19/23 08/12/23 Rx 1,000 mcg/mL injection solution quetiapine 25 mg tablet See Rx Instructions PO .COMPLEX 06/27/23 08/12/23 Rx #135 tabs Size M incontinence briefs #40 ea 07/25/23 08/12/23 Rx galcanezumab-gnlm 120 mg/mL 120 mg subcut QMONTH #3 mL 07/25/23 08/12/23 Rx subcutaneous pen injector (Emgality Pen) triamcinolone acetonide 0.1 % 1 applic topical BID PRN R ear & 07/25/23 08/12/23 Rx topical cream hand dermatitis #15 grams apixaban 5 mg tablet (Eliquis) 5 mg PO BID #60 tabs 08/02/23 08/12/23 Rx empagliflozin 10 mg tablet 10 mg PO QAM #30 tabs 08/02/23 08/12/23 Rx (Jardiance) furosemide 40 mg tablet 40 mg PO BID@0830,1600 #60 tabs 08/02/23 08/12/23 Rx metoprolol succinate 50 mg 75 mg (1.5 x 50 mg) PO BID #90 tabs 08/02/23 08/12/23 Rx tablet,extended release 24 hr (Toprol XL) potassium chloride 10 mEq 20 meq (2 x 10 mEq) PO BID #120 08/02/23 08/12/23 Rx capsule,extended release caps sacubitril 24 mg-valsartan 26 mg 1 tab PO BID #60 tabs 08/02/23 08/12/23 Rx tablet (Entresto) spironolactone 25 mg tablet 25 mg PO DAILY #30 tabs 08/02/23 08/12/23 Rx Exam Narrative Exam Narrative: General: Patient appears appropriate for age, pleasantly confused and in no acute distress lying in bed. She is alert and oriented at least to person place. HEENT: Normocephalic, eyes with pupils equal and react to light symmetrically, extraocular movement intact and sclera anicteric. Oropharynx is clear with slightly dry mucosa and poor dentition with spaced and missing teeth as well as discoloration. Neck: Supple without JVD. Back: Kyphotic without CVA Tenderness. Lungs: Fair aeration and clear to auscultation percussion without focalizing rales or rhonchi. Heart: Irregular rhythm with normal rate. No appreciable murmur or gallop. Breast: Exam deferred. Abdomen: Obese contour, soft nontender to palpation with no palpable hepatosplenomegaly. Bowel sounds positive all quadrants. Genitalia/rectal: Exam deferred. Extremities: Nonpitting edema both lower extremities with compression stockings in place. Fair capillary refill. No clubbing or cyanosis. Joints have fair range of motion. Skin: Normal color, warm and dry with no bruising noted. Neuro: Cranial nerves II through XII grossly intact, no focalizing motor deficits and no tremor. Psych: Normal affect and mood the patient being hard of hearing and having some repetition. Poor historian with her vascular dementia. No abnormal thought processes. Remote memory intact with recent memory at times less intact. Results Imaging Imaging Studies: EXAM: XR CHEST 2V PA LATERAL CLINICAL HISTORY: dizziness TECHNIQUE: 2D digital imaging was performed of the chest. Two images were obtained. PA and lateral views were obtained. COMPARISON: CR,RF RF BARIUM SWALLOW from 07/31/2023 FINDINGS: MEDIASTINUM: Normal. HEART: Normal. PULMONARY VASCULATURE: Normal. LUNGS: There is scarring or atelectasis in the right lung base. PLEURAL SPACE: No pleural effusion or pneumothorax. BONE:Within normal limits for the patient's age. OTHER FINDINGS:The patient has an external Holter device in place. IMPRESSION: No acute pulmonary findings. Labs 08/12/23 18:27 08/12/23 18:27 Labs: Laboratory Results - last 24 hr 08/12/23 08/12/23 08/12/23 18:27 20:58 21:20 WBC 6.77 RBC 4.76 Hgb 14.5 Hct 45.3 MCV 95 MCH 30.5 MCHC 32.0 RDW 14.1 Plt Count 185 MPV 10.9 Immature Gran % 0.3 Neutrophils % 74.3 Lymphocytes % 17.6 Monocytes % 4.7 Eosinophils % 1.6 Basophils % 1.5 Nucleated RBC % 0.0 Absolute Neutrophils 5.03 Absolute Lymphocytes 1.19 L Absolute Monocytes 0.32 Absolute Eosinophils 0.11 Absolute Basophils 0.10 Sodium 136 Potassium 5.3 H Chloride 99 Carbon Dioxide 28.0 Anion Gap 9.0 BUN 40 H Creatinine 1.7 H Est GFR (CKD-EPI 2020) 29.39 Glucose 127 H Calcium 9.5 Magnesium 2.8 H Total Bilirubin 0.7 AST 44 H ALT 22 Alkaline Phosphatase 176 H Troponin I < 50 < 50 Total Protein 8.6 H Albumin 3.8 Urine Color Yellow Urine Clarity Sl Cloudy Urine pH 7.0 Ur Specific Hartman 1.015 Urine Protein Negative Urine Ketones Negative Urine Blood Negative Urine Nitrite Negative Urine Bilirubin Negative Urine Urobilinogen 0.2 Ur Leukocyte Esterase Moderate H Urine RBC 0-2 Urine WBC 10-20 H Ur Epithelial Cells Many Urine Crystals Negative Urine Bacteria Many Urine Mucus Negative Urine Other Few Yeast Ur Culture Indicated? No/Sq. Contamination Urine Glucose 100 H Last Vital Signs Temp 36.2 C L 08/12/23 17:01 Pulse 96 H 08/12/23 19:51 Resp 17 08/12/23 19:51 BP 96/64 L 08/12/23 19:51 Pulse Ox 85 L 08/12/23 18:20 Time Spent Time spent with Patient: >75 minutes Time was spent: preparing to see the patient(eg.review tests), obtaining and/or reviewing separately otained hiistory, ordering medications,tests, procedures, indepentently interpreting results and care coordination
[2023-08-13] VITALS (35 sets, daily range): BP systolic 82–143; BP diastolic 52–114; PULSE 52–143; RESP 11–26; TEMP 36–36.7; O2SAT 92–98
[2023-08-13] MEDS: Normal Saline 1,000 ML 125 ML IV ×3 (06:32→21:51)
[2023-08-13] MEDS: Levothyroxine 50 MCG TAB PO (06:32)
[2023-08-13] MEDS: Normal Saline Flush 10 ML SYR IVP ×3 (06:32→21:48)
[2023-08-13 07:55] LABS: HCT 44.1 % (36.0-46.0); HGB 14.4 g/dL (11.2-15.7); MCHC 32.7 % (32.0-36.0); MCV 95 fL (80-95); MPV 11.3 fL (8.0-11.0); Platelet Count 180 10^3/uL (130-400); RBC 4.65 10^6/uL (3.93-5.22); RDW 14.1 % (11.7-14.6); RDW-SD 48.9 fL; WBC 5.32 10^3/uL (4.4-10.8)
[2023-08-13 08:07] LABS: INR 1.2 (0.9-1.1)
[2023-08-13 08:16] LABS: ALT 19 U/L (14-59); AST 33 U/L (15-37); Albumin 3.5 g/dL (3.4-5.0); Alkaline Phosphatase 153 U/L (46-116); Anion Gap 10.1 mmol/L (3-11); BUN 37 mg/dL (7-18); Bilirubin, Total 0.7 mg/dL (0.2-1.0); CO2 25.9 mmol/L (21.0-32.0); CREATININE 1.4 mg/dL (0.55-1.02); Calcium 9.3 mg/dL (8.5-10.1); Chloride 103 mmol/L (98-107); Glucose 101 mg/dL (74-106); Magnesium 2.6 mg/dL (1.8-2.4); Potassium 4.8 mmol/L (3.5-5.1); Sodium 139 mmol/L (136-145); Total Protein 7.9 g/dL (6.4-8.2)
[2023-08-13] MEDS: Pantoprazole 40 MG TABCR PO ×2 (08:51→21:47)
[2023-08-13] MEDS: Spironolactone 25 MG TAB PO (08:51)
[2023-08-13] MEDS: Gabapentin 100 MG CAP PO ×3 (08:51→21:46)
[2023-08-13] MEDS: QUEtiapine 25 MG TAB 12.5 MG PO (08:52)
[2023-08-13] MEDS: Empaglifozin 10 MG TAB PO (08:52)
[2023-08-13] MEDS: Ketoconazole 2% CREAM 15 GM TUBE TP (08:53)
--- NOTE | 2023-08-13 10:52 | INITIAL_ITS ---
Date of service: 08/13/23 Time of Service: 10:52 Care Management Initial Assmt Initial Assessment REASON FOR HOSPITALIZATION:: atrial fibrillation with RVR PREVIOUS FUNCTIONAL STATUS/SOCIAL/FAMILY SUPPORTS:: Maegan lives in [facility] with her son, Gus. She has two other sons who live nearby, Bryan and Miles. Her son Bryan brings her to appointments, and her daughter in law Sushila checks in on her frequently. Gus does the grocery shopping and cooks some of the meals. Maegan has a caregiver/hand binder stripper, who comes twice a week and another one who comes monthly. These are paid through [facility]. She reports that her family is very supportive. She receives MOW. She is independent with bathing, dressing and other ADLs and uses a walker for ambulation. CURRENT FUNCTIONAL STATUS:: Maegan was sitting up in a chair visiting with her son Miles when CM met with her. She was pleasant and engaged well with CM, as did Miles. They explained which services she receives and how much support she receives at home. Maegan explained to CM that sometimes she stutters, especially when in a new situation. This was evident during the conversation. She shared that one of her sons has the same issue. ADVANCE DIRECTIVES:: [facility] on file Has patient been provided with info about the portal/API?: Yes Did the patient sign up for the portal?: Yes CODE STATUS:: DNR/DNI INSURANCE COVERAGE / FINANCIAL ISSUES:: Medicare Medicare Supplement Medicaid CURRENT HOME/COMMUNITY SERVICES/EQUIPMENT:: walker, hand binder stripper/caregiver through [facility], [employer] PRIMARY CARE PHYSICIAN:: Elizabeth Hathaway POTENTIAL DISCHARGE NEEDS:: follow up with PCP and plan of care PATIENT/FAMILY EDUCATION NEEDS:: review of discharge instructions, activity, limitations, follow up plan, discuss Ask Me Three TRANSPORTATION:: via private vehicle with family PLAN:: Anticipate Maegan will be discharged home, possibly with new home health services. Her son Miles stated HH PT was ordered following her last admission but that it did not go well or last very long. She will follow up with her PCP and plan of care and transport with family. CM will follow and support discharge planning needs. PFSH All Active Problems (Updated 08/13/23 @ 06:17 by Brent Carr) Chronic atrial fibrillation (Chronic) Hypotension (Acute) SHAILESH (acute kidney injury) (Acute) Heart failure with reduced ejection fraction (Chronic) Acute on chronic HFrEF (heart failure with reduced ejection fraction) (Acute) Aspiration into airway (Acute) Pleural effusion, right (Acute) Sepsis (Acute) Pancytopenia (Acute) Cirrhosis (Acute) Preseptal cellulitis (Acute) Elevated liver function tests (Chronic) Thrombocytopenia (Chronic) Atrial fibrillation with rapid ventricular response (Acute) Urinary incontinence (Acute) Inflammatory bowel disease (Chronic) [facility] [place] [facility] [place] Metatarsalgia of left foot (Acute) Corns and callosities (Acute) Nail dystrophy (Acute) Vascular dementia (Chronic) Delusions (Acute) Alzheimer's dementia with agitation (Acute) Palliative care patient (Acute) Dementia (Chronic) Essential hypertension (Chronic) Onychomycosis (Acute ~06/2021) Iron deficiency anemia (Acute) Managed by [facility]. 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) Chronic anemia (Chronic 09/04/17) IBD-Crohns Osteoporosis (Chronic 03/27/16) Migraines (Chronic 09/04/17) Hypothyroidism (Chronic 09/04/17) Depression (Chronic 09/12/17) Crohn's disease with complication (Chronic 09/04/17) Crohn's colitis and ileitis, mild[place] [place]22 B12 deficiency (Chronic 09/04/17) Anxiety (Chronic 09/04/17) Medical History Visual hallucinations Sensorineural hearing loss, bilateral Fall Deep vein thrombosis (DVT) (09/12/17) Mild intermittent asthma without complication (09/12/17) Posterior staphyloma [facility] report dated 04/17/18. Brent Castaneda, OD Astigmatism of both eyes [facility] report dated 04/17/18. Brent Castaneda, OD Grade 1 hypertensive retinopathy Meibomian gland dysfunction (MGD) [facility] exam dated 04/17/18. Brent Castaneda, OD Neck pain (09/04/17) Fatigue (09/04/17) Exacerbation of Crohn's disease Microcytic anemia Nonspecific ST-T wave electrocardiographic changes Dehydration Hypomagnesemia Asthma exacerbation Acute bronchitis Influenza A Surgical History H/[place] colonoscopy (04/07/18) [facility] [place], Laproscopic Hiatal Hernia repair (09/11/17) Repair of umbilical hernia (09/11/17) Social History Smoking/Tobacco Use Status: Never Smoking risk assessment performed?: Yes Alcohol Intake: never Substance use type: does not use Household members: children Housing: house Number of Children: 3 Current gender identity: female What is your relationship status?: Panel score (0-1 are the most socially isolated patients): 0 What type of physical activity do you participate in: none Seatbelt use: always Water heater temp set <120 deg: Yes Working smoke detector in home: Yes Fire extinguisher in home: Yes Carbon monox detector in home: Yes Firearms in home: No Do you feel safe at home: Yes Do you feel safe in your relationship?: Yes History History Para 3 Hx # Term Pregnancies Multiple births Hx # Pregnancies Ectopic pregnancies AB induced Hx Number of Living Children AB spontaneous SDOH(Care Management) Screening Will the Patient Participate in the Screening?: Declined to provide
[2023-08-13] MEDS: Apixaban 2.5 MG TAB PO ×2 (10:53→21:46)
--- NOTE | 2023-08-13 15:50 | CHAPLAIN ---
I had a brief visit with Maegan. The alarm to her IV was going off as the infusion was complete, and the alarm go louder so she was more concerned about getting that to stop. I went to report it to the senior front end engineer and will visit Maegan another time. According to Care Management notes, Maegan has several supportive family members and friends.
--- NOTE | 2023-08-13 15:54 | W.PM.PROGNOT ---
Date of Service Date of service: 08/13/23 Time of Service: 15:54 Assessment and Plan Assessment and plan (1) Hypotension: Status: Acute Assessment and plan: continue to hold entreso and lasix will reduce metoprolol dose with parameters continue gentle IV hydration fall precautions Qualifiers: Hypotension type: hypotension due to drug Qualified Code(s): I95.2 - Hypotension due to drugs (2) SHAILESH (acute kidney injury): Status: Acute Assessment and plan: multifactoral with prerenal and hypotension contributing avoid nephrotoxic drugs, renal dosing as needed continue to hold diuretics gentle IV hydration in setting of heart failure history monitor I/O closely (3) Heart failure with reduced ejection fraction: Status: Chronic Assessment and plan: not fluid overload getting gentle hydration, monitor fluid status closely entreso on hold, continue jardiance lasix on hold, continue spironalactone. (4) Chronic atrial fibrillation: Status: Chronic Assessment and plan: Adjust beta-fanta as discussed continue Eliquis. (5) Hypothyroidism: Status: Chronic Assessment and plan: TSH was controlled with last hospitalization and patient will continue usual dose of levothyroxine. discussed with Dr Matamoros Qualifiers: Hypothyroidism type: acquired Qualified Code(s): E03.9 - Hypothyroidism, unspecified Subjective Subjective Patient reports: afebrile; denies shortness of breath Interval history since last seen: Patient still with periods of hypotension that is symptomatic with dizziness and visual disturbance. She denies any chest pain or shortness of breath. There has been no syncopal episodes she has been eating and drinking some, continues to receive IV fluids. Exam Const General: cooperative, no acute distress and frail appearing Nutritional Appearance: thin Orientation: alert, awake and other (Poor historian slow to respond at times appears at baseline) [facility] Head: normal to inspection, normocephalic and atraumatic Mouth: moist mucous membranes Eyes General: appearance normal, both eyes and all related structures Neck Neck: normal visual inspection Resp Effort & Inspection: normal respiratory effort Cardio Rate: regular rate Rhythm: regular rhythm Skin General skin exam: no rashes or lesions noted Neuro General: patient alert, patient awake and patient oriented x3 Extrem General: normal to inspection, full ROM and no pedal edema Psych Mental Status: mental status grossly normal Objective Last Vital Signs Temp 36.7 C 08/13/23 15:12 Pulse 66 08/13/23 15:12 Resp 16 08/13/23 15:12 BP 82/60 L 08/13/23 15:12 Pulse Ox 98 08/13/23 15:12 Laboratory Results - last 24 hr 08/12/23 08/12/23 08/12/23 18:27 20:58 21:20 WBC 6.77 RBC 4.76 Hgb 14.5 Hct 45.3 MCV 95 MCH 30.5 MCHC 32.0 RDW 14.1 Plt Count 185 MPV 10.9 Immature Gran % 0.3 Neutrophils % 74.3 Lymphocytes % 17.6 Monocytes % 4.7 Eosinophils % 1.6 Basophils % 1.5 Nucleated RBC % 0.0 Absolute Neutrophils 5.03 Absolute Lymphocytes 1.19 L Absolute Monocytes 0.32 Absolute Eosinophils 0.11 Absolute Basophils 0.10 PT INR Sodium 136 Potassium 5.3 H Chloride 99 Carbon Dioxide 28.0 Anion Gap 9.0 BUN 40 H Creatinine 1.7 H Est GFR (CKD-EPI 2020) 29.39 Glucose 127 H Calcium 9.5 Magnesium 2.8 H Total Bilirubin 0.7 AST 44 H ALT 22 Alkaline Phosphatase 176 H Troponin I < 50 < 50 Total Protein 8.6 H Albumin 3.8 Urine Color Yellow Urine Clarity Sl Cloudy Urine pH 7.0 Ur Specific Oden 1.015 Urine Protein Negative Urine Ketones Negative Urine Blood Negative Urine Nitrite Negative Urine Bilirubin Negative Urine Urobilinogen 0.2 Ur Leukocyte Esterase Moderate H Urine RBC 0-2 Urine WBC 10-20 H Ur Epithelial Cells Many Urine Crystals Negative Urine Bacteria Many Urine Mucus Negative Urine Other Few Yeast Ur Culture Indicated? No/Sq. Contamination Urine Glucose 100 H 08/13/23 06:55 WBC 5.32 RBC 4.65 Hgb 14.4 Hct 44.1 MCV 95 MCH 31.0 MCHC 32.7 RDW 14.1 Plt Count 180 MPV 11.3 H Immature Gran % Neutrophils % Lymphocytes % Monocytes % Eosinophils % Basophils % Nucleated RBC % Absolute Neutrophils Absolute Lymphocytes Absolute Monocytes Absolute Eosinophils Absolute Basophils PT 12.0 H INR 1.2 H Sodium 139 Potassium 4.8 Chloride 103 Carbon Dioxide 25.9 Anion Gap 10.1 BUN 37 H Creatinine 1.4 H Est GFR (CKD-EPI 2020) 37.10 Glucose 101 Calcium 9.3 Magnesium 2.6 H Total Bilirubin 0.7 AST 33 ALT 19 Alkaline Phosphatase 153 H Troponin I Total Protein 7.9 Albumin 3.5 Urine Color Urine Clarity Urine pH Ur Specific Oden Urine Protein Urine Ketones Urine Blood Urine Nitrite Urine Bilirubin Urine Urobilinogen Ur Leukocyte Esterase Urine RBC Urine WBC Ur Epithelial Cells Urine Crystals Urine Bacteria Urine Mucus Urine Other Ur Culture Indicated? Urine Glucose Time Spent with Patient Time Spent with Patient: 35-49 minutes Time was spent: preparing to see the patient(eg.review tests), obtaining and/or reviewing separately otained hiistory, ordering medications,tests, procedures, indepentently interpreting results and counseling the patient
[2023-08-13] MEDS: QUEtiapine 25 MG TAB PO (21:46)
[2023-08-13] MEDS: Mirtazapine 15 MG TAB 7.5 MG PO (21:46)
[2023-08-13] MEDS: Atorvastatin 20 MG TAB PO (21:47)
[2023-08-14] VITALS (12 sets, daily range): BP systolic 95–137; BP diastolic 60–75; PULSE 61–105; RESP 15–18; TEMP 35.7–37; O2SAT 95–100
[2023-08-14] MEDS: Levothyroxine 50 MCG TAB PO (05:42)
[2023-08-14] MEDS: Metoprolol 25 MG TAB PO ×2 (05:43→18:51)
[2023-08-14] MEDS: Normal Saline 1,000 ML 125 ML IV (05:43)
[2023-08-14 07:18] LABS: Anion Gap 10.1 mmol/L (3-11); BUN 31 mg/dL (7-18); CO2 24.9 mmol/L (21.0-32.0); CREATININE 1.1 mg/dL (0.55-1.02); Calcium 8.9 mg/dL (8.5-10.1); Chloride 108 mmol/L (98-107); Estimated GFR 49.55 (mL/min/1.73m2); Glucose 100 mg/dL (74-106); Magnesium 2.2 mg/dL (1.8-2.4); Potassium 4.5 mmol/L (3.5-5.1); Sodium 143 mmol/L (136-145)
[2023-08-14] MEDS: Pantoprazole 40 MG TABCR PO ×2 (08:07→20:54)
[2023-08-14] MEDS: Gabapentin 100 MG CAP PO ×3 (08:08→20:54)
[2023-08-14] MEDS: QUEtiapine 25 MG TAB 12.5 MG PO (08:10)
[2023-08-14] MEDS: Apixaban 2.5 MG TAB PO ×2 (08:11→20:55)
[2023-08-14] MEDS: Empaglifozin 10 MG TAB PO (08:12)
--- NOTE | 2023-08-14 10:01 | PDOC.CMPRO ---
Date of service: 08/14/23 Time of Service: 10:02 Care Management Progress Note Progress Note Text Progress Note Text: S/O:Maegan was sitting up in a chair visiting with her son Gus, with whom she lives,when CM met with her. She was pleasant and engaged well with CM. Maegan stated that she was doing well and had walked in the halls with PT. Her BUN and creatinine have improved and her systolic blood pressures have been 98 and above all day. A: Maegan is an 83 year old woman admitted on 08/12/23 with CHF and hypotension P:Anticipate Maegan will be discharged home, possibly with new home health services for PT when medically stable. Her son Miles stated HH PT was ordered following her last admission but that it did not go well or last very long. She will follow up with her PCP and plan of care and transport with family. CM will follow and support discharge planning needs.
[2023-08-14] MEDS: Ketoconazole 2% CREAM 15 GM TUBE TP (10:40)
--- NOTE | 2023-08-14 11:20 | PT.INIE ---
PT Notes Visit Reasons: Hypotension, SHAILESH, CHF, CAF Physical Therapy Inpatient Initial Evaluation Date: 08/14/2023 Referring Doctor: Leti Ramos NP PT CONSULT: Eval/Treat Precautions: Fall. Standard. Activity as tolerated. L AFO on when OOB. Patient Profile/Admitting Diagnosis: Maegan is an 83-year-old female with recent hospitalization on 07/29/2023 due to facila cellulitis who represented to the ED on 08/12/2023 due to generalized weakness, hypotension, and dizziness. Patient is admitted for management of hypotension, SHAILESH, heart failure with reduced ejection fraction, and hypothyroidism. PMHX: All Active Problems (Updated 08/13/23 @ 06:17 by Brent Carr) Chronic atrial fibrillation (Chronic) Hypotension (Acute) SHAILESH (acute kidney injury) (Acute) Heart failure with reduced ejection fraction (Chronic) Acute on chronic HFrEF (heart failure with reduced ejection fraction) (Acute) Aspiration into airway (Acute) Pleural effusion, right (Acute) Sepsis (Acute) Pancytopenia (Acute) Cirrhosis (Acute) Preseptal cellulitis (Acute) Elevated liver function tests (Chronic) Thrombocytopenia (Chronic) Atrial fibrillation with rapid ventricular response (Acute) Urinary incontinence (Acute) Inflammatory bowel disease (Chronic) [facility] Note 04/17/23 Metatarsalgia of left foot (Acute) Corns and callosities (Acute) Nail dystrophy (Acute) Vascular dementia (Chronic) Delusions (Acute) Alzheimer's dementia with agitation (Acute) Palliative care patient (Acute) Dementia (Chronic) Essential hypertension (Chronic) Onychomycosis (Acute ~06/2021) Iron deficiency anemia (Acute) Managed by [facility]. 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) Chronic anemia (Chronic 09/04/17) IBD-Crohns Osteoporosis (Chronic 03/27/16) Migraines (Chronic 09/04/17) Hypothyroidism (Chronic 09/04/17) Depression (Chronic 09/12/17) Crohn's disease with complication (Chronic 09/04/17) Crohn's colitis and ileitis, mild-[facility] Note 08/01/22B12 deficiency (Chronic 09/04/17) Anxiety (Chronic 09/04/17) Medical History Visual hallucinations Sensorineural hearing loss, bilateral Fall Deep vein thrombosis (DVT) (09/12/17) Mild intermittent asthma without complication (09/12/17) Posterior staphyloma [facility] report dated 04/17/18. Brent Castaneda, OD Astigmatism of both eyes [facility] report dated 04/17/18. Brent Castaneda, OD Grade 1 hypertensive retinopathy Meibomian gland dysfunction (MGD) [facility] exam dated 04/17/18. Brent Castaneda, OD Neck pain (09/04/17) Fatigue (09/04/17) Exacerbation of Crohn's disease Microcytic anemia Nonspecific ST-T wave electrocardiographic changes Dehydration Hypomagnesemia Asthma exacerbation Acute bronchitis Influenza A Surgical History [facility]07/18[facility], [facility] Hiatal Hernia repair (09/11/17) Repair of umbilical hernia (09/11/17) Social History/Home Situation: Lives with son in an apartment building with a ramp to and 2-3 step to the entrance door. Modified independent with all indoor mobility performance using front-wheeled walker. Son works during the day. Gets MOW. Able to do dishes and self care. Son does the laundry downstairs. Has not negotiated down the steps at home for a long time due to safety reason. Has an AFO for the L foot drop. Equipment Owned/DME: FWW, L AFO Subjective: Feels much better. Agreeable to walking with PT. Denied headache, chest pain, and dizziness throughout session. States that she abruptly sat on floor while putting up her laundry into her closet which caused the L elbow to hit against something hard on her way down. Objective: General Observation: Sitting on chair. Holter monitor in place. Mental Status: Alert and oriented as to person, place and puropose. Pain: Denied Vital Signs: Closely monitored by nursing staff ROM: Right Upper Extremity: Shoulder Flexion WFL. Shoulder abduction WFL. Elbow flexion WFL. Wrist flexion WFL. Functional opening and closing of hand WFL. Left Upper Extremity: Shoulder Flexion WFL. Shoulder abduction WFL. Elbow flexion WFL. Wrist flexion WFL. Functional opening and closing of hand WFL. Right Lower Extremity: Hip flexion WFL. Hip abduction WFL. Knee flexion WFL. Ankle dorsiflexion WFL. Ankle plantarflexion WFL. Left Lower Extremity: Hip flexion WFL. Hip abduction WFL. Knee flexion WFL. Ankle dorsiflexion none. Ankle plantarflexion WFL. Strength: Right Upper Extremity: Shoulder flexors 4-/5. Shoulder abductors 4-/5. Elbow flexors 4-/5. Elbow extensors 4-/5. Industrial Servicer strong. Left Upper Extremity: Shoulder flexors 4-/5. Shoulder abductors 4-/5. Elbow flexors 4-/5. Elbow extensors 4-/5. Industrial Servicer strong. Right Lower Extremity: Hip flexors 4-/5. Hip abductors 4-/5. Knee flexors 4-/5. Knee extensors 4-/5. Ankle dorsiflexors 4-/5. Ankle plantarflexors 4-/5. Left Lower Extremity: Hip flexors 4-/5. Hip abductors 4-/5. Knee flexors 4-/5. Knee extensors 4-/5. Ankle dorsiflexors 0/5. Ankle plantarflexors 4-/5. Bed Mobility/Transfers: Minimal verbal cueing cueing provided for use of B hands as needed for support, movement sequence, Ad management, and and posture to reduce fall risk and minimize pain report. Rolling supervision Supine to sit supervision Sit to supine supervision Sit to stand stand by assist Stand to sit stand by assist Bed to bedside commode stand by assist Reclining chair to bed stand by assist Gait: Facilitated safe and correct performance of short distance ambulation using front-wheeled walker covering a distance 250 feet + 30 feet with no shortness of breath and no LOB, L AFO on. Minimal verbal cueing provided for reducing excessive hip and knee flexion on the L which has been a habit she formed due to the L foot drop. No SOB. Denied headache, chest pain, and dizziness throughout session. Balance: Static Sitting: Normal Dynamic Sitting: Normal Static Standing: Fair Dynamic Standing: Fair Special Tests: Mobility Limitations Standardized Measure [facility] 6 clicks Basic Mobility Inpatient Short Form: Raw Score: 24 CMS Score: 0% deficit Informed Consent/Education: Patient was instructed in purpose of PT consult and plan of care. Agreeable to proceed with established PT POC to achieve personal goals. Assessment: Patient requires use of a front wheeled walker and left AFO for all mobility ADL performance to maximize independence and reduce fall risk. Patient presents with clinical signs and symptoms consistent with current/admitting diagnoses that have resulted to mobility limitations, gait instability, generalized weakness, and overall ADL decline as demonstrated by the following impairment level findings: 1. Decreased strength to B UE/LE major muscle groups 2. Impaired sitting/standing balance 3. Impaired activity tolerance 4. Limitation of joint range of motion in L ankle due to pre-existing foot drop (chronic) Impairments are contributing to the following functional limitations: 1. Difficulty with ambulation without assistive device 2. Increased completion time for mobility ADL performance 3. Increased risk for falls Patient is assessed as a 64985 moderate complexity based on the following: History: 83-year-old female with past medical history as indicated above Examination: Demonstrable impairment in strength, balance, and mobility level with underlying impairments and functional limitations as exhibited above as well as deficit score of 47% utilizing the [facility] Mobility Inpatient Short Form Presentation: Evolving Decision Makin moderate complexity Goals: Goals X1 week 1. Supine-Sit independent 2. Sit-Supine independent 3. Sit-Stand independent 4. Stand-Sit independent with FWW 5. Bed-Chair independent with FWW 6. Chair-Bed independent with FWW 7. Independent gait on level surface with use of FWW for at least 300 feet without report of pain nor dyspnea 8. Independent stair negotiation while holding onto B rails for at least 2 steps without report of pain nor dyspnea 9. Independent with home exercise program 10. Good static and dynamic standing balance/tolerance Plan of Care/Treatment Plan: 1-2x/day, 7 days/week x 1 week. Plan of care has been reviewed with the LANGUAGE THERAPIST providing the service under Physical Therapy direction. Initiate Physical Therapy intervention for pain management as needed, strengthening, bed mobility, transfers, gait, stairs, balance training, and use of assistive device. DISCHARGE RECOMMENDATIONS: [] Home with no services [] [X] Home with services. Patient will benefit from home health PT services in order to progress mobility level using least restrictive assistive ambulatory device, assess home safety, identify additional equipment needs, and establish a functional maintenance program that will increase ability of patient to remain at home. [] Home with outpatient PT [] [] SNF for continued rehabilitation [] [] Patient Admitting Representative Care [] [] SNF versus LTC based on ability to participate and progress [] [X] May benefit from outpatient lymphedema management to head and neck when cleared by hospitalist TREATMENT CODE/TIME: 9716 x 20 minutes , for 1 unit, 89435 x 11 minutes for 1 unit beginning at 10:45 AM beginning at 10:45 AM. Thank you for the opportunity to participate in the care of this patient. Anuradha Alvarez PT, DPT, CLT [facility] [place], [place]
--- NOTE | 2023-08-14 14:50 | PT.INTREAT ---
Date of service: 08/14/23 Time of Service: 14:15 PT Notes Visit Reasons: Hypotension, SHAILESH, CHF, CAF Inpatient Physical Therapy Treatment Note [facility] Date: 08/14/23 PRECAUTIONS: Fall, standard, activity as tolerated. AFO left when OOB. SUBJECTIVE: Patient reports having trouble with her eyes, blurred vision, difficulty distinguishing colors, general decrease in visual acuity. Reports feeling as though she is shouting about it into the void, but that no one is listening. OBJECTIVE: Sitting up in bedside chair with legs elevated. 3 family members present. Agreeable to therapy. ? PAIN: none reported. VITALS: monitored by nursing staff. ? BED MOBILITY/TRANSFERS? Rolling L/R: not assessed Supine-sit: not assessed ? Sit-supine: not assessed ? Sit-stand: SBA ? Stand-sit: SBA ? Bed-Chair: SBA ? Chair-bed: SBA ? Therapeutic Exercises ([id number]): Direct one-on-one instruction in therapeutic exercises to develop strength, endurance, range of motion and flexibility. Ambulation ? Assistive Device: FWW? Weight bearing: full Assist: SBA ? Distance:? 150 feet ? Deviation: reduced step height, reduced step length, kyphotic posture. Patient stops several times during ambulation to point to various signs, carts, etc in hallway to describe what she can and cannot see. This is clearly distressing to the patient. ? Provided skilled instruction in proper exercise performance Provided skilled manual cues to facilitate proper muscle recruitment and/or form. ASSESSMENT:? Patient tolerates ambulation well, reporting no increased pain, no SOB, no LOB. Perseverates on her vision changes. This clinician alerts RN Tanya, who states that she has brought it up several times before and after morning meeting. PLAN: Continue global strengthening per plan of care until patient is medically cleared for discharge. Continue to monitor patient's reported vision changes and report as appropriate. TREATMENT CODE/TIME: 27 minutes beginning at 14:15.
--- NOTE | 2023-08-14 15:38 | W.PM.PROGNOT ---
Date of Service Date of service: 08/14/23 Time of Service: 15:39 Assessment and Plan Assessment and plan (1) Hypotension: Status: Acute Assessment and plan: continue to hold entreso and lasix will reduce metoprolol dose with parameters continue gentle IV hydration fall precautions Qualifiers: Hypotension type: hypotension due to drug Qualified Code(s): I95.2 - Hypotension due to drugs (2) SHAILESH (acute kidney injury): Status: Acute Assessment and plan: multifactoral with prerenal and hypotension contributing avoid nephrotoxic drugs, renal dosing as needed continue to hold diuretics gentle IV hydration in setting of heart failure history monitor I/O closely (3) Heart failure with reduced ejection fraction: Status: Chronic Assessment and plan: not fluid overload getting gentle hydration, monitor fluid status closely entreso on hold, continue jardiance lasix on hold, continue spironalactone. (4) Chronic atrial fibrillation: Status: Chronic Assessment and plan: Adjust beta-fanta as discussed continue Eliquis. (5) Hypothyroidism: Status: Chronic Assessment and plan: TSH was controlled with last hospitalization and patient will continue usual dose of levothyroxine. discussed with Dr Cortes Qualifiers: Hypothyroidism type: acquired Qualified Code(s): E03.9 - Hypothyroidism, unspecified Subjective Subjective Patient reports: no new complaints, feels better, tolerating liquids well and tolerating a regular diet Exam Const General: cooperative, no acute distress and frail appearing Nutritional Appearance: thin Orientation: alert, awake and other (Poor historian slow to respond at times appears at baseline) [facility] Head: normal to inspection, normocephalic and atraumatic Mouth: moist mucous membranes Eyes General: appearance normal, both eyes and all related structures Neck Neck: normal visual inspection Resp Effort & Inspection: normal respiratory effort Cardio Rate: regular rate Rhythm: regular rhythm Skin General skin exam: no rashes or lesions noted Neuro General: patient alert, patient awake and patient oriented x3 Extrem General: normal to inspection, full ROM and no pedal edema Psych Mental Status: mental status grossly normal Objective Last Vital Signs Temp 37.0 C 08/14/23 11:44 Pulse 65 08/14/23 11:44 Resp 15 08/14/23 11:44 BP 98/67 L 08/14/23 13:47 Pulse Ox 100 08/14/23 11:44 Laboratory Results - last 24 hr 01/24/24 06:00 Sodium 143 Potassium 4.5 Chloride 108 H Carbon Dioxide 24.9 Anion Gap 10.1 BUN 31 H Creatinine 1.1 H Est GFR (CKD-EPI 2020) 49.55 Glucose 100 Calcium 8.9 Magnesium 2.2 Time Spent with Patient Time Spent with Patient: 25-34 minutes Time was spent: preparing to see the patient(eg.review tests), obtaining and/or reviewing separately otained hiistory, ordering medications,tests, procedures, indepentently interpreting results and counseling the patient
[2023-08-14] MEDS: Atorvastatin 20 MG TAB PO (20:54)
[2023-08-14] MEDS: Mirtazapine 15 MG TAB 7.5 MG PO (20:54)
[2023-08-14] MEDS: QUEtiapine 25 MG TAB PO (20:55)
[2023-08-14] MEDS: Metoprolol 12.5 MG TAB PO (20:55)
[2023-08-14] MEDS: Normal Saline Flush 10 ML SYR IVP (20:56)
[2023-08-15] VITALS (60 sets, daily range): BP systolic 68–139; BP diastolic 38–79; PULSE 68–146; RESP 13–24; TEMP 36.8–39.7; O2SAT 92–98
--- NOTE | 2023-08-15 | DI.RAD_ITS ---
Exam(s) XR PORTABLE CHEST AP EXAM: XR PORTABLE CHEST AP CLINICAL HISTORY: fever TECHNIQUE: 2D digital imaging was performed. COMPARISON: CR,XR XR CHEST 2V PA LATERAL from 08/12/2023 FINDINGS: Exam limited by overlying leads and electronic device as well as poor pulmonary inflation. LUNGS: Scarring versus atelectasis at both lung bases. No focal infiltrate. No pleural abnormality seen. HEART: Normal size. AORTA: Normal diameter. BONES: Unremarkable for age. Soft tissues: Right diaphragm again elevated. IMPRESSION: Bibasilar atelectasis versus scarring. Poor pulmonary inflation DATA REPOSITORY: RADIATION DOSE DELIVERED:
--- NOTE | 2023-08-15 | DI.CT_ITS ---
Exam(s) CT HEAD - STROKE PROTOCOL EXAM: CT HEAD - STROKE PROTOCOL CLINICAL HISTORY: new onset of blurred vision. TECHNIQUE: Imaging Protocol: Axial computed tomography images with coronal and sagittal reformatted images were created and reviewed COMPARISON: CT CT FACIAL W from 07/30/2023 FINDINGS: Ventricles and Extra axial spaces: Normal in size and morphology for the patient's age. Hemorrhage: None. Cerebral parenchyma: Areas of decreased attenuation in the white matter consistent with small vessel ischemic disease. No mass effect is identified. Midline shift: None. Brainstem/Cerebellum: Normal. Calvarium: Normal. Visualized Paranasal sinuses/Mastoids: Clear. Soft Tissues: Unremarkable. IMPRESSION: No acute intracranial process. RADIATION DOSE DELIVERED: 315.23 mGy.cm Total DLP DATA REPOSITORY: All CT scans at this facility are submitted to the National Radiology Data Registry (NRDR) Dose Index Registry (DIR) with the [employer] ([employer]). RADIATION OPTIMIZATION: All CT scans at this facility use at least one of these dose optimization te chniques: automated exposure control; mA and/or kV adjustment per patient size (includes targeted exa ms where dose is matched to clinical indication); or iterative reconstruction.
[2023-08-15] MEDS: Metoprolol 25 MG TAB PO (00:24)
[2023-08-15] MEDS: Metoprolol 12.5 MG TAB PO (01:55)
--- NOTE | 2023-08-15 02:47 | NUR.NOTE ---
08/15/23 01:25 Dr Matamoros called patient complaining of chronic back pain, B/P 139/70 HR= 120-145.02 sat-95% RA Aqua pad ordered, extra po dose 12.5 mg Metoprolol, and Lidoderm patch .
[2023-08-15] MEDS: Ondansetron 4 MG/2 ML VIAL IVP (02:50)
[2023-08-15] MEDS: Metoprolol 5 MG/5 ML VIAL 2.5 MG IVP ×2 (02:59→03:46)
[2023-08-15] MEDS: dilTIAZem 30 MG TAB PO ×3 (04:49→22:10)
[2023-08-15] MEDS: Lactated Ringers 250 ML IV ×2 (04:52→23:45)
--- NOTE | 2023-08-15 05:04 | NUR.NOTE ---
Addendum entered by Aishwarya Rodgers RN 08/15/23 07:51: At 0600 HR remained elevated 130-140s. Towards the end of the shift pt noted to be more disoriented. Also noted that when getting up to commode, pt seemed unable to see, required total guidance from staff to get from bed to BSC. Pt also unable to see water cup in front of her when taking pills. mechanical car checker updated MD. MD ordered CT scan and transfer to ICU. Report given to PSYCHIATRIC ATTENDANT, pt accompanied down to CT scan with staff via , then transferred to ICU. Belongings brought with pt. mechanical car checker to update pt's family of transfer. Original Note: At beginning of shift pt reporting migraine headache, states she takes a monthly injection for them, last taken on the first of the month. States that she doesn't use other PRNs as nothing else really works. HR elevated 120-130s. mechanical car checker updated, who spoke with MD and order received for additional x1 12.5 PO metoprolol. Dose given with HS meds, following which HR improved into 90-100s and pt resting. Following scheduled 0000 metoprolol dose, HR remained elevated 130-140s and pt reporting back pain. mechanical car checker updated. Order received for a second 12.5 mg PO metoprolol dose. Also for either aqua K or lidocaine patch. Pt preferred to try aqua K first. HR remained unchanged 1 hour later, pt reported some improvement in back pain but woke up with nausea. mechanical car checker updated. Orders received for IV metoprolol x1 and PRN zofran. PSYCHIATRIC ATTENDANT administered metoprolol. Pt monitored closely. HR unchanged, BP stable. Pt had large BM and reported improved nausea following zofran. mechanical car checker updated , order for second dose IV metoprolol ordered, again given by PSYCHIATRIC ATTENDANT. HR remains elevated 130-140s. Pt reports intermittent mild nausea, dizziness, and ongoing migraine. mechanical car checker updated. MD up to see pt at bedside. Per MD, 1x diltiazem PO and LR bolus of 250 cc. MD states to notify her at 0600 if HR not sustaining below 120, at which time may transfer to ICU. Pt resting comfortably at this time. Nursing Note:
[2023-08-15] MEDS: Levothyroxine 50 MCG TAB PO (06:11)
[2023-08-15] MEDS: Lactated Ringers 1,000 ML 75 ML IV (06:11)
[2023-08-15] MEDS: Metoprolol 25 MG TAB 37.5 MG PO (06:11)
--- NOTE | 2023-08-15 06:16 | PGE_ITS ---
Date of Service Date of service: 08/15/23 Time of Service: 06:16 Subjective Subjective Interval history since last seen: The patient had rapid Afib a lot of the night tonight with HR 130s-150s despite increasing doses of oral and bolus IV metoprolol. I reinstituted IVF as she still appears clincally dry and trialed a dose of cardizem 30 mg PO without response. The patient is being transferred to the ICU for a cardizem drip. Her latest BP is 115/75. She has a migraine (no oral treatments have ever helped and she was recently started on Emgality) and gets STEVENS, but is otherwise asymptomatic.' The patient is DNR/DNI but is in agreement with transfer to the ICU. Objective Last Vital Signs Temp 36.8 C 08/15/23 01:32 Pulse 137 H 08/15/23 06:03 Resp 20 08/15/23 06:03 BP 115/75 08/15/23 06:03 Pulse Ox 93 08/15/23 06:03 Laboratory Results - last 24 hr 08/14/23 06:00 Sodium 143 Potassium 4.5 Chloride 108 H Carbon Dioxide 24.9 Anion Gap 10.1 BUN 31 H Creatinine 1.1 H Est GFR (CKD-EPI 2020) 49.55 Glucose 100 Calcium 8.9 Magnesium 2.2 Time Spent with Patient Time Spent with Patient: 25-34 minutes Time was spent: preparing to see the patient(eg.review tests), obtaining and/or reviewing separately otained hiistory, ordering medications,tests, procedures, referring, communicating with other health career orientation teacher, indepentently interpreting results, counseling the patient and care coordination
--- NOTE | 2023-08-15 07:22 | DI.VRAD_ITS ---
PROCEDURE INFORMATION: Exam: CT Head Without Contrast Exam date and time: 08/15/2023 6:52 AM Age: 83 years old Clinical indication: Stroke-like symptoms; Altered mental status/memory loss TECHNIQUE: Imaging protocol: Computed tomography of the head without contrast. Other technique: STROKE PROTOCOL was implemented. COMPARISON: MR brain wo 08/22/2018 2:11 PM FINDINGS: Brain: No acute hemorrhage identified. No large territorial areas of hypoattenuation concerning for ischemic infarct identified. No intracranial mass effect. Cerebral ventricles: The ventricles are within normal limits. Paranasal sinuses: The visualized sinuses are unremarkable. Mastoid air cells: The visualized mastoid air cells are well aerated. Bones/joints: The osseous structures are intact. Soft tissues: Unremarkable. IMPRESSION: No acute intracranial abnormality. ASSESSMENT: ASPECTS (Anju Stroke Program Early CT Score) is 10. Dictated and Authenticated by: Brent Jules MD. Ordering:RACHEL Garcia MD
[2023-08-15 07:42] LABS: Anion Gap 7.7 mmol/L (3-11); BUN 30 mg/dL (7-18); CO2 24.3 mmol/L (21.0-32.0); CREATININE 1.1 mg/dL (0.55-1.02); Calcium 9.2 mg/dL (8.5-10.1); Chloride 105 mmol/L (98-107); Estimated GFR 49.55 (mL/min/1.73m2); Glucose 126 mg/dL (74-106); Magnesium 1.8 mg/dL (1.8-2.4); Potassium 4.8 mmol/L (3.5-5.1); Sodium 137 mmol/L (136-145); Troponin I < 50 ng/L (< or =60)
--- NOTE | 2023-08-15 08:51 | W.PM.PROGNOT ---
Date of Service Date of service: 08/15/23 Time of Service: 08:51 Assessment and Plan Assessment and plan (1) Chronic atrial fibrillation: Status: Chronic Assessment and plan: now w/ rapid atrial fibrillation, may be exacerbated by her hypovolemia, will continue gentle iv hydration but watch that we do not put her back into acute CHF. continue to hold Entresto and diuretics. Begin diltiazem drip to control rapid atrial fibrillation, continue apixaban for stroke prevention Critical care time spent interviewing and examining the patient, reviewing studies, discussing case with patient's nurse and consulting physicians was 45 minutes. (2) SHAILESH (acute kidney injury): Status: Acute Assessment and plan: secondary to over diuresis, but much improved BUN 40 >30 and creatinine 1.7 > 1.1, continue gently hydration w/ LR, will stop stop at 500 mL and reassess this afternoon. May need further iv fluids overnight. She got 250 mL bolus last night for SBP in the 90's. (3) Heart failure with reduced ejection fraction: Status: Chronic Assessment and plan: last echo 07/31/23: LVEF 42% w/ global hypokinesis, normal RV size and function, mild to mod. MR, mild TR. holding Entresto, and diuretics (4) Hypothyroidism: Status: Chronic Assessment and plan: TSH was controlled with last hospitalization and patient will continue usual dose of levothyroxine. Qualifiers: Hypothyroidism type: acquired Qualified Code(s): E03.9 - Hypothyroidism, unspecified Subjective Subjective Interval history since last seen: Patient went into rapid atrial fibrillation overnight and was transferred to ICU this morning. She denies any dyspnea or chest pain. Nursing notes some increased confusion, gait imbalance last night and worsening vision. She has severe macular degeneration and can only see shadows to begin with. For me she is alert, she stutters which is her baseline. She is oriented to place [facility] but not to date, when asked the year, she said 1958). She was tried on increasing doses of lopressor (both po and iv last night). CT brain w/o did not show any acute changes. She is now on diltiazem drip at 5 mg/h after bolus of 10 mg. I am adding low dose short acting diltizem. She is also getting some fluids, LR @ 75 mL/h, was ordered x 1 liter but I have reduced this to 500 mL d/t her propensity to go into CHF w/ rapid afib. Exam Narrative Exam Narrative: Edwin is alert, she knows she is in the hospital at [facility] but is unclear as to why she is admitted, and she is not oriented to date Neck: no overt JVD Lungs: clear anteriorly and posteriorly Heart: irregularly irregular tachycardic in the 130's Abdomen: soft, nontender, nondistended Legs/arms: no edema Objective Last Vital Signs Temp 38.1 C H 08/15/23 08:48 Pulse 127 H 08/15/23 08:01 Resp 17 08/15/23 08:01 BP 94/75 L 08/15/23 08:01 Pulse Ox 93 08/15/23 06:03 Laboratory Results - last 24 hr 08/15/23 07:15 Sodium 137 Potassium 4.8 Chloride 105 Carbon Dioxide 24.3 Anion Gap 7.7 BUN 30 H Creatinine 1.1 H Est GFR (CKD-EPI 2020) 49.55 Glucose 126 H Calcium 9.2 Magnesium 1.8 Troponin I < 50 Reviewed Pertinent PMH: Yes Objective Narrative Objective Narrative: Bedside cardiac US: IVC is not dilated and does collapse but less than 50%, mitral inflow E/e' was low at 7, LVH present w/ good systolic motion w/ no wall motion abnormalities, acute cor pulmonale, i.e. RV not dilated and normal septal kinetics. Time Spent with Patient Time Spent with Patient: 35-49 minutes Time was spent: preparing to see the patient(eg.review tests), ordering medications,tests, procedures, referring, communicating with other health respiratory care assistant (Dr. Matamoros and Dr. Esqueda), indepentently interpreting results, counseling the patient and care coordination
[2023-08-15] MEDS: dilTIAZem 125 MG in Normal Saline 100 ML IV (08:58)
--- NOTE | 2023-08-15 09:27 | PDOC.CMPRO ---
Date of service: 08/15/23 Time of Service: 09:27 Care Management Progress Note Progress Note Text Progress Note Text: S/O: Maegan was lying in bed when CM met with her. She stated that she was listening to music; she had a tablet provided by staff, and was listening to older music, which she was enjoying. She appeared confused and did not engage well in conversation. Per report, Maegan's diuretics were discontinued and she is not on a cardizem drip for her Afib with RVR. Maegan is well supported at home by her family, and will return home once medically cleared. CM will continue to follow. A: Maegan is an 83 year old woman admitted on 08/12/23 with CHF and hypotension P:Anticipate Maegan will be discharged home, possibly with new home health services for PT when medically stable. Her son Miles stated HH PT was ordered following her last admission but that it did not go well or last very long. She will follow up with her PCP and plan of care and transport with family. CM will follow and support discharge planning needs.
[2023-08-15 09:30] LABS: Abs Immature Grans 0.01 10^3/uL (0.0-0.06); Absolute Basophil Count 0.03 10^3/uL (0.0-0.2); Absolute Eosinophil Count 0.02 10^3/uL (0.0-0.7); Absolute Lymphocyte Count 0.09 10^3/uL (1.2-3.4); Absolute Neutrophil Count 4.35 10^3/uL (1.2-6.7); Basophils % 0.7; Eosinophils % 0.4; HCT 43.1 % (36.0-46.0); HGB 13.9 g/dL (11.2-15.7); Immature Grans % 0.2; MCH 30.7 pg (27.0-33.0); MCHC 32.3 % (32.0-36.0); MCV 95 fL (80-95); Monocytes % 2.2; Neutrophils % 94.5; Platelet Count 119 10^3/uL (130-400); RBC 4.53 10^6/uL (3.93-5.22); RDW-SD 49.1 fL
[2023-08-15 09:35] LABS: C-Reactive Protein 0.55 mg/dL (0.0-0.3)
[2023-08-15] MEDS: QUEtiapine 25 MG TAB 12.5 MG PO (09:45)
[2023-08-15] MEDS: Empaglifozin 10 MG TAB PO (09:46)
[2023-08-15] MEDS: Apixaban 2.5 MG TAB PO ×2 (09:46→21:00)
[2023-08-15] MEDS: Pantoprazole 40 MG TABCR PO ×2 (09:46→21:54)
[2023-08-15] MEDS: Gabapentin 100 MG CAP PO ×3 (09:46→22:07)
[2023-08-15] MEDS: Normal Saline Flush 10 ML SYR IVP (09:47)
[2023-08-15 09:54] LABS: Procalcitonin 0.2 ng/mL
[2023-08-15] MEDS: Lactated Ringers 500 ML 75 ML IV (11:00)
[2023-08-15 11:27] LABS: Bilirubin Negative (Negative); Blood Trace-intact (Negative); Clarity Sl Cloudy (Clear); Glucose 500 mg/dL (Negative); Ketones Negative (Negative); Leukocyte Esterase Moderate (Negative); Nitrite Positive (Negative); Specific Gravity 1.015 (1.005-1.025); Urobilinogen 0.2 mg/dL (Up to 0.2); pH 5.5 (5-8)
[2023-08-15 11:37] LABS: Bacteria Many HPF (Negative); C & S Indicated? C&S Done As Ordered; Casts Negative LPF (Negative); Crystals Negative HPF (Negative); Epithelial Cells Few HPF (Negative); Mucus Negative (Negative); RBC 0-2 HPF (0-2); WBC 20-50 HPF (0-5)
[2023-08-15 13:01] LABS: Troponin I < 50 ng/L (< or =60)
--- NOTE | 2023-08-15 13:29 | IN_ITS ---
PT Notes Visit Reasons: Hypotension, SHAILESH, CHF, CAF Physical Therapy Inpatient Initial Evaluation Date: 08/15/2023 Referring Doctor: Archie Cortes MD PT CONSULT: Safety Consult for D/C Precautions: Fall. Standard. Activity as tolerated. L AFO on when OOB. Patient Profile/Admitting Diagnosis: Maegan is an 83-year-old female with recent hospitalization on 07/29/2023 due to facila cellulitis who represented to the ED on 08/12/2023 due to generalized weakness, hypotension, and dizziness. Patient is admitted for management of hypotension, SHAILESH, heart failure with reduced ejection fraction, and hypothyroidism. Required ICU level of care the evening of 08/14/2023 due to rapid AF with another referral sent for continued mobility training as tolerated. PMHX: All Active Problems (Updated 08/13/23 @ 06:17 by Brent Carr) Chronic atrial fibrillation (Chronic) Hypotension (Acute) SHAILESH (acute kidney injury) (Acute) Heart failure with reduced ejection fraction (Chronic) Acute on chronic HFrEF (heart failure with reduced ejection fraction) (Acute) Aspiration into airway (Acute) Pleural effusion, right (Acute) Sepsis (Acute) Pancytopenia (Acute) Cirrhosis (Acute) Preseptal cellulitis (Acute) Elevated liver function tests (Chronic) Thrombocytopenia (Chronic) Atrial fibrillation with rapid ventricular response (Acute) Urinary incontinence (Acute) Inflammatory bowel disease (Chronic) [facility] Note 04/17/23 Metatarsalgia of left foot (Acute) Corns and callosities (Acute) Nail dystrophy (Acute) Vascular dementia (Chronic) Delusions (Acute) Alzheimer's dementia with agitation (Acute) Palliative care patient (Acute) Dementia (Chronic) Essential hypertension (Chronic) Onychomycosis (Acute ~06/2021) Iron deficiency anemia (Acute) Managed by [facility]. 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) Chronic anemia (Chronic 09/04/17) IBD-Crohns Osteoporosis (Chronic 03/27/16) Migraines (Chronic 09/04/17) Hypothyroidism (Chronic 09/04/17) Depression (Chronic 09/12/17) Crohn's disease with complication (Chronic 09/04/17) Crohn's colitis and ileitis, mild-[facility] Note 08/01/22B12 deficiency (Chronic 09/04/17) Anxiety (Chronic 09/04/17) Medical History Visual hallucinations Sensorineural hearing loss, bilateral Fall Deep vein thrombosis (DVT) (09/12/17) Mild intermittent asthma without complication (09/12/17) Posterior staphyloma [facility] report dated 04/17/18. Brent Castaneda, OD Astigmatism of both eyes [facility] report dated 04/17/18. Brent Castaneda, OD Grade 1 hypertensive retinopathy Meibomian gland dysfunction (MGD) [facility] exam dated 04/17/18. Brent Castaneda, OD Neck pain (09/04/17) Fatigue (09/04/17) Exacerbation of Crohn's disease Microcytic anemia Nonspecific ST-T wave electrocardiographic changes Dehydration Hypomagnesemia Asthma exacerbation Acute bronchitis Influenza A Surgical History H/O colonoscopy (04/07/18) [facility], [facility] Hiatal Hernia repair (09/11/17) Repair of umbilical hernia (09/11/17) Social History/Home Situation: Lives with son in an apartment building with a ramp to and 2-3 step to the entrance door. Modified independent with all indoor mobility performance using front-wheeled walker. Son works during the day. Gets MOW. Able to do dishes and self care. Son does the laundry downstairs. Has not negotiated down the steps at home for a long time due to safety reason. Has an AFO for the L foot drop. Equipment Owned/DME: FWW, L AFO Subjective: Denied headache, chest pain, and dizziness throughout session. feels slow and weak. Stitterring more today than she did yesterday. Objective: General Observation: resting in bed. Telemetry monitoring in place Mental Status: Alert and oriented as to person, place and purpose. Pain: Denied Vital Signs: Oxygen saturation fluctuation from 82 through 91% on RA with HR high of 122 bpm ROM: Right Upper Extremity: Shoulder Flexion WFL. Shoulder abduction WFL. Elbow flexion WFL. Wrist flexion WFL. Functional opening and closing of hand WFL. Left Upper Extremity: Shoulder Flexion WFL. Shoulder abduction WFL. Elbow flexion WFL. Wrist flexion WFL. Functional opening and closing of hand WFL. Right Lower Extremity: Hip flexion WFL. Hip abduction WFL. Knee flexion WFL. Ankle dorsiflexion WFL. Ankle plantarflexion WFL. Left Lower Extremity: Hip flexion WFL. Hip abduction WFL. Knee flexion WFL. Ankle dorsiflexion none. Ankle plantarflexion WFL. Strength: Right Upper Extremity: Shoulder flexors 4-/5. Shoulder abductors 4-/5. Elbow flexors 4-/5. Elbow extensors 4-/5. Supervisor Coffee strong. Left Upper Extremity: Shoulder flexors 4-/5. Shoulder abductors 4-/5. Elbow flexors 4-/5. Elbow extensors 4-/5. Supervisor Coffee strong. Right Lower Extremity: Hip flexors 4-/5. Hip abductors 4-/5. Knee flexors 4-/5. Knee extensors 4-/5. Ankle dorsiflexors 4-/5. Ankle plantarflexors 4-/5. Left Lower Extremity: Hip flexors 4-/5. Hip abductors 4-/5. Knee flexors 4-/5. Knee extensors 4-/5. Ankle dorsiflexors 0/5. Ankle plantarflexors 4-/5. Bed Mobility/Transfers: Minimal verbal cueing cueing provided for use of B hands as needed for support, movement sequence, Ad management, and and posture to reduce fall risk and minimize pain report. Rolling moderate assist Supine to sit moderate assist Sit to supine minimal assist Sit to stand minimal assist Stand to sit contact-guard assist Bed to bedside commode minimal assist Reclining chair to bed minimal assist Gait: 2-3 steps to and from bedside commode only. Minimal verbal cueing provided for reducing excessive hip and knee flexion on the L which has been a habit she formed due to the L foot drop. Moderate SOB. Denied headache, chest pain, and dizziness throughout session. Balance: Static Sitting: Normal Dynamic Sitting: Normal Static Standing: Fair Dynamic Standing: Fair Special Tests: Mobility Limitations Standardized Measure [facility] 6 clicks Basic Mobility Inpatient Short Form: Raw Score: 15 CMS Score: 58% deficit Informed Consent/Education: Patient was instructed in purpose of PT consult and plan of care. Agreeable to proceed with established PT POC to achieve personal goals. Assessment: Declined in function from how she did yesterday. Patient requires the use of a front wheeled walker and left AFO for all mobility ADL performance to maximize independence and reduce fall risk. Patient presents with clinical signs and symptoms consistent with current/admitting diagnoses that have resulted to mobility limitations, gait instability, generalized weakness, and overall ADL decline as demonstrated by the following impairment level findings: 1. Decreased strength to B UE/LE major muscle groups 2. Impaired sitting/standing balance 3. Impaired activity tolerance 4. Limitation of joint range of motion in L ankle due to pre-existing foot drop (chronic) Impairments are contributing to the following functional limitations: 1. Difficulty with ambulation without assistive device 2. Increased completion time for mobility ADL performance 3. Increased risk for falls Patient is assessed as a 17436 moderate complexity based on the following: History: 83-year-old female with past medical history as indicated above Examination: Demonstrable impairment in strength, balance, and mobility level with underlying impairments and functional limitations as exhibited above as well as deficit score of 47% utilizing the [facility] Mobility Inpatient Short Form Presentation: Evolving Decision Makin moderate complexity Goals: Goals X1 week 1. Supine-Sit independent 2. Sit-Supine independent 3. Sit-Stand independent 4. Stand-Sit independent with FWW 5. Bed-Chair independent with FWW 6. Chair-Bed independent with FWW 7. Independent gait on level surface with use of FWW for at least 300 feet without report of pain nor dyspnea 8. Independent stair negotiation while holding onto B rails for at least 2 steps without report of pain nor dyspnea 9. Independent with home exercise program 10. Good static and dynamic standing balance/tolerance Plan of Care/Treatment Plan: 1-2x/day, 7 days/week x 1 week. Plan of care has been reviewed with the CLAMMER providing the service under Physical Therapy direction. Initiate Physical Therapy intervention for pain management as needed, strengthening, bed mobility, transfers, gait, stairs, balance training, and use of assistive device. DISCHARGE RECOMMENDATIONS: [] Home with no services [] [X] Home with services. Patient will benefit from home health PT services in order to progress mobility level using least restrictive assistive ambulatory device, assess home safety, identify additional equipment needs, and establish a functional maintenance program that will increase ability of patient to remain at home. [] Home with outpatient PT [] [] SNF for continued rehabilitation [] [] [facility] [] [] SNF versus LTC based on ability to participate and progress [] [X] PT vs SNF based on how much patient will bounce back from most recent ICU transfer TREATMENT CODE/TIME: 9716 x 20 minutes , for 1 unit, 35771 x 11 minutes for 1 unit beginning at 10:45 AM beginning at 10:45 AM. Thank you for the opportunity to participate in the care of this patient. Anuradha Alvarez PT, DPT, CLT [facility] [place], [place]
[2023-08-15] MEDS: Lactated Ringers 1,000 ML 85 ML IV (17:15)
--- NOTE | 2023-08-15 17:23 | CHAPLAIN ---
Maegan was eating breakfast when I visited. She was having a hard time using her spoon, getting food to her mouth, and using the straw in the paper cup of coffee. Maegan told me that she grew up in [place] [facility] [place], then moved here after her , she was teary telling me that he'd a few years ago. She moved to this area to be closer to her two sons, she explained, who sisters that are from the [facility]. She has a grandchild who lives locally and one farther away she said. Maegan was listening to big band music and said that's her favorite music. She attends the [employer], although has been able to go for awhile, and had a hard time explaining why that was. There was some confusion and she had a hard time finding some words. The catholic does know she's here, she said. Her family has been into visit frequently and seems very supportive.
[2023-08-15] MEDS: Acetaminophen 325 MG TAB PO (18:17)
[2023-08-15] MEDS: Docusate Sodium 100 MG CAP PO (18:17)
--- NOTE | 2023-08-15 20:49 | DI.VRAD_ITS ---
PROCEDURE INFORMATION: Exam: XR Chest Exam date and time: 08/15/2023 8:27 PM Age: 83 years old Clinical indication: Fever TECHNIQUE: Imaging protocol: Radiologic exam of the chest. Views: 1 view. Total images: 1 COMPARISON: CR XR CHEST 2V PA LATERAL 08/12/2023 6:51 PM FINDINGS: Tubes, catheters and devices: External support device projects over the mediastinum. Lungs: Mild right basilar atelectasis or scarring, stable. No focal pneumonia. No suspicious pulmonary nodules. Normal pulmonary vascularity. Pleural spaces: No pleural effusion or pneumothorax. Heart/Mediastinum: Normal heart size. Diaphragm: Partial eventration of the right hemidiaphragm, stable. Bones/joints: No acute osseous abnormalities. Mild degenerative change of the spine. IMPRESSION: 1. External support device projects over the mediastinum. 2. Mild right basilar atelectasis or scarring, stable. 3. Partial eventration of the right hemidiaphragm, stable. Dictated and Authenticated by: Radha Miller MD. Ordering:ZAYNAB Espinosa MD
[2023-08-15] MEDS: Atorvastatin 20 MG TAB PO (21:00)
[2023-08-15] MEDS: cefTRIAXone 1 GM/50 ML BAG IVPB (21:48)
[2023-08-15] MEDS: Mirtazapine 15 MG TAB 7.5 MG PO (21:57)
[2023-08-15] MEDS: QUEtiapine 25 MG TAB PO (21:57)
[2023-08-15] MEDS: Lidocaine 5% Patch 1 PATCH TP (22:07)
[2023-08-16] VITALS (47 sets, daily range): BP systolic 77–115; BP diastolic 46–66; PULSE 60–128; RESP 12–21; TEMP 36.8–37.4; O2SAT 93–99
[2023-08-16] MEDS: Normal Saline Flush 10 ML SYR IVP ×3 (01:43→23:49)
--- NOTE | 2023-08-16 04:18 | NUR.NOTE ---
PT Temp 38.7 at start of shift 39.7 @ 1817 provider updated . Blood pressures remain soft see chart manual done 80/41 automatic 80/51 spoke with provider before HS cardizem given Ok to give HS meds . Patients mentation much improved from this am patient states vision is improved and she feels better She denies Chest pain shortness of breath or dizzyness. Heart rate is between 90 and 110 predominately in the 90's. Urine output greater than 30 ml/hr. Currently pt afebrile in Afib rate of 91 BP 86/52 map 64 97% on RA Nursing Note:
[2023-08-16] MEDS: Levothyroxine 50 MCG TAB PO (06:36)
--- NOTE | 2023-08-16 06:58 | NUR.NOTE ---
midnight metoprolol not given do to low BP SPoke with Rafal Hester this am Verbal ok to hold Am Metoprolol, Nursing Note:
[2023-08-16 07:36] LABS: Anion Gap 8.7 mmol/L (3-11); BUN 38 mg/dL (7-18); CO2 24.3 mmol/L (21.0-32.0); CREATININE 1.2 mg/dL (0.55-1.02); Calcium 8.1 mg/dL (8.5-10.1); Chloride 105 mmol/L (98-107); Estimated GFR 44.64 (mL/min/1.73m2); Glucose 101 mg/dL (74-106); Magnesium 1.8 mg/dL (1.8-2.4); Potassium 4.4 mmol/L (3.5-5.1); Sodium 138 mmol/L (136-145)
[2023-08-16] MEDS: Lactated Ringers 1,000 ML 85 ML IV ×2 (08:06→14:30)
[2023-08-16] MEDS: Gabapentin 100 MG CAP PO ×3 (08:42→20:19)
[2023-08-16] MEDS: Apixaban 2.5 MG TAB PO ×2 (08:43→20:20)
[2023-08-16] MEDS: dilTIAZem 30 MG TAB PO ×3 (08:43→15:20)
[2023-08-16] MEDS: Pantoprazole 40 MG TABCR PO ×2 (08:43→20:20)
[2023-08-16] MEDS: Empaglifozin 10 MG TAB PO (08:44)
[2023-08-16] MEDS: QUEtiapine 25 MG TAB 12.5 MG PO (08:45)
[2023-08-16] MEDS: Lidocaine Patch Removal 1 EACH TP (08:53)
[2023-08-16] MEDS: Ketoconazole 2% CREAM 15 GM TUBE TP (09:01)
--- NOTE | 2023-08-16 10:09 | PDOC.CMPRO ---
Date of service: 08/16/23 Time of Service: 10:09 Care Management Progress Note Progress Note Text Progress Note Text: S/O: Maegan was sitting up in a chair when CM met with her. She was smiling and appeared to be in good spirits although she did seem a bit more confused and forgetful than previously. She has been found to have a UTI and was started on antibiotics. It is possible that is contributing to her mental status. Maegan did not seem to have a good understanding of why she was in the hospital or why she was transferred to the ICU. CM explained about her hypotension, CHF and rapid afib in simple terms. Maegan stated that she now has a much better understanding, although it is not clear to CM that she really understood. Maegan has a pronounced stutter and it is sometimes difficult to be sure how effective communication has been. A: Maegan is an 83 year old woman admitted on 08/12/23 with CHF and hypotension P:Anticipate Maegan will be discharged home, possibly with new home health services for PT when medically stable. Her son Miles stated HH PT was ordered following her last admission but that it did not go well or last very long. She will follow up with her PCP and plan of care and transport with family. CM will follow and support discharge planning needs. SDOH(Care Management) Screening Will the Patient Participate in the Screening?: Declined to provide
--- NOTE | 2023-08-16 11:57 | PTTR_ITS ---
Date of service: 08/16/23 Time of Service: 11:35 PT Notes Visit Reasons: Hypotension, SHAILESH, CHF, CAF Inpatient Physical Therapy Treatment Note [facility] Date: 08/16/23 PRECAUTIONS: Fall, standard, activity as tolerated. Low BP at baseline, >80 systolic is ok provided patient is not symptomatic. SUBJECTIVE: Patient is asleep at the start of therapy session, wakes easily. Reports being very tired. OBJECTIVE: Supine in bed. BP cuff, SaO2 monitor, telemetry, IV, and bay catheter in place. Agreeable to therapy. ? PAIN: none reported VITALS: ? Pre-Treatment: SaO2 94%, HR 86 bpm ? Post-Treatment: SaO2 95%, HR 93 bpm? Therapeutic Activities (63510l3): Direct one-on-one instruction in dynamic act ivities to improve functional performance. ? BED MOBILITY/TRANSFERS? Rolling L/R: independent Supine-sit: modified independent with slightly elevated HOB and bilateral side rails.? Sit-supine: not assessed ? Sit-stand: min assist of 1 at gait belt with verbal cues for limb placement? Stand-sit: CGA with verbal cues to reach back for sitting surface. ? Bed-Chair: min assist with mod verbal cues as well as assistance managing all of the wires and tubes. Patient desaturates to 84% upon standing up, with HR ~110. With ambulation of 3 feet, patient desaturates to 79% and HR high is 122.? Provided skilled cues and instruction on performance and technique throughout. ASSESSMENT:? Patient recovers moderately well with seated rest and verbal cues for nasal / diaphragmatic breathing. PLAN: Continue global strengthening per plan of care until patient is medically cleared for discharge. TREATMENT CODE/TIME: 21 minutes beginning at 11:35
--- NOTE | 2023-08-16 14:56 | PTTR_ITS ---
PT Notes Visit Reasons: Hypotension, SHAILESH, CHF, CAF Inpatient Physical Therapy Treatment Note [facility] Date: 08/16/23 PRECAUTIONS: standard SUBJECTIVE: Maegan states that she is feeling well. She continues to struggle with her vision. OBJECTIVE: ? VITALS: ? Pre-Treatment: On room air. HR resting in 90s. SaO2 97% ? Post-Treatment: HR monitored throughout treatment session, remaining 125 or below throughout. SaO2 remains in high 90s. At end of session, HR 105 seated in chair. ? Therapeutic Activities (43369z2:) ? BED MOBILITY/TRANSFERS? Supine-sit: supervision? Sit-supine: not assessed ? Sit-stand: supervision? Stand-sit: supervision ? Bed-Chair: CGA with FWW and left AFO ? Chair-bed: CGA with FWW and left AFO ? Therapeutic Exercises ([id number]): Direct one-on-one instruction in therapeutic exercises to develop strength, endurance, range of motion and flexibility. ? Exercises ? standing hip abduction at FWW, CGA, 10x each standing march, 2 minutes, bilat UE support to FWW, CGA static standing for improved activity tolerance, 2 minutes x 2, SBA with FWW Ambulation ? Assistive Device: FWW, left AFO ? Weight bearing: full WB Assist: CGA ? Distance:? 5' ? Deviation: requires cues for management of obstacles ? Provided skilled instruction in proper exercise performance Neuromuscular Re-education (26318z9): Activities that facilitate re-education of movement balance, posture, coordination, and proprioception or kinesthetic sense, requiring skilled tactile and verbal cues ? Exercises/techniques: ? small BENEDICTO standing without UE support 30 seconds small BENEDICTO standing with bilat shoulder flexion, 10x, CGA single leg standing 10 seconds each, bilat UE support ASSESSMENT:? Tolerated treatment very well. Will benefit from continued balance retraining due to visual impairment, and continued monitoring of vitals as we progress her activity. PLAN: as above TREATMENT CODE/TIME: [id number] (NRE, TP) Gerda Childress, PT, DPT [facility]
--- NOTE | 2023-08-16 15:01 | W.PM.PROGNOT ---
Date of Service Date of service: 08/16/23 Time of Service: 15:01 Assessment and Plan Assessment and plan (1) Chronic atrial fibrillation: Status: Chronic Assessment and plan: Variable rate control. I had considered starting her on an antiarrhythmic amiodarone however she has only been anticoagulated for about 2-1/2 weeks. I started her on apixaban for her last hospitalization. Will try to adjust her diltiazem and her metoprolol find a right combination to control her rate. Present time she will remain off diuretics as she is not showing volume overload. She still getting IV fluids which I will continue for 1 more day given her persistent azotemia. Will continue the apixaban for stroke prevention. She is hemodynamically stable and has been off the diltiazem drip since yesterday therefore I think she can go to the medical floor with continued telemetry monitoring. Professional time spent interviewing and examining patient, discussion of goals of care with hospital team (care management, nursing and consulting professionals) was 35 minutes. (2) SHAILESH (acute kidney injury): Status: Acute Assessment and plan: Improving renal function although BUN still remains elevated at 38 creatinine is normal at 1.2. Her baseline when she left the hospital last time was 0.8. Continue gentle IV fluid hydration (3) Heart failure with reduced ejection fraction: Status: Chronic Assessment and plan: last echo 07/31/23: LVEF 42% w/ global hypokinesis, normal RV size and function, mild to mod. MR, mild TR. holding Entresto, and diuretics, continue gentle hydration (4) Hypothyroidism: Status: Chronic Assessment and plan: TSH was controlled with last hospitalization and patient will continue usual dose of levothyroxine. Qualifiers: Hypothyroidism type: acquired Qualified Code(s): E03.9 - Hypothyroidism, unspecified Subjective Subjective Patient reports: no new complaints and feels better; denies shortness of breath Interval history since last seen: Maegan feels better. no chest or palpitations despite variable rate control on her atrial fibrillation. She is still getting iv fluids at low rate and making good urine output. Exam Narrative Exam Narrative: Maegan is alert sitting up in her chair nursing reports confusion that I think is she is at her baseline dementia. She does stutter and this is also her baseline. Unfortunately she has sensory deprivation due to her macular degeneration which severely limits her vision to shadows. Lungs are clear to auscultation Heart is irregularly irregular slightly tachycardic she is currently running in the low 100s. No appreciable murmur rub Abdomen soft nondistended nontender Lower extremities without peripheral cyanosis or edema upper extremities also without edema. Objective Last Vital Signs Temp 36.8 C 08/16/23 12:00 Pulse 90 08/16/23 12:00 Resp 18 08/16/23 12:36 BP 100/59 L 08/16/23 12:00 Pulse Ox 99 08/16/23 12:01 Laboratory Results - last 24 hr 08/16/23 05:33 Sodium 138 Potassium 4.4 Chloride 105 Carbon Dioxide 24.3 Anion Gap 8.7 BUN 38 H Creatinine 1.2 H Est GFR (CKD-EPI 2020) 44.64 Glucose 101 Calcium 8.1 L Magnesium 1.8 Time Spent with Patient Time Spent with Patient: 35-49 minutes Time was spent: preparing to see the patient(eg.review tests), ordering medications,tests, procedures, referring, communicating with other health field care coordinator, indepentently interpreting results, counseling the patient and care coordination
[2023-08-16] MEDS: Metoprolol 25 MG TAB PO (17:38)
[2023-08-16] MEDS: Lidocaine 5% Patch 1 PATCH TP (20:17)
[2023-08-16] MEDS: Mirtazapine 15 MG TAB 7.5 MG PO (20:19)
[2023-08-16] MEDS: dilTIAZem 60 MG TAB PO (20:19)
[2023-08-16] MEDS: Atorvastatin 20 MG TAB PO (20:20)
[2023-08-16] MEDS: QUEtiapine 25 MG TAB PO (20:21)
[2023-08-16] MEDS: cefTRIAXone 1 GM/50 ML BAG IVPB (22:09)
[2023-08-17] VITALS (7 sets, daily range): BP systolic 90–110; BP diastolic 55–67; PULSE 64–90; RESP 14–20; TEMP 36.1–37.2; O2SAT 94–100
[2023-08-17] MEDS: Metoprolol 25 MG TAB PO ×3 (00:37→12:17)
[2023-08-17] MEDS: Levothyroxine 50 MCG TAB PO (06:19)
[2023-08-17] MEDS: Pantoprazole 40 MG TABCR PO ×2 (08:00→19:49)
[2023-08-17] MEDS: dilTIAZem 60 MG TAB PO (08:00)
[2023-08-17] MEDS: Gabapentin 100 MG CAP PO ×3 (08:00→19:48)
[2023-08-17] MEDS: Apixaban 2.5 MG TAB PO ×2 (08:00→19:49)
[2023-08-17] MEDS: Normal Saline Flush 10 ML SYR IVP ×2 (08:01→21:53)
[2023-08-17] MEDS: Empaglifozin 10 MG TAB PO (08:01)
[2023-08-17] MEDS: QUEtiapine 25 MG TAB 12.5 MG PO (08:01)
--- NOTE | 2023-08-17 10:17 | PT.INTREAT ---
PT Notes Visit Reasons: Hypotension, SHAILESH, CHF, CAF Date: 08/17/23 PRECAUTIONS: Standard SUBJECTIVE: Pt in bed sleeping, agreed to participating with therapy when pt awoke, OBJECTIVE: ? PAIN: none VITALS: monitored by nursing Therapeutic Activities [id number] 15mins: Direct one-on-one instruction in dynamic activities to improve functional performance. ?? BED MOBILITY/TRANSFERS? Rolling L/R: Supervision Supine-sit: ?Supervision ? Sit-supine: ? ?CGA for LLE movement to get centered in bed ? Sit-stand: ?CGA? Stand-sit: ?supervision ? Bed-Chair:? CGA ? Chair-bed: CGA Provided skilled cues and instruction on performance and technique throughout. Gait Training [id number] 15mins: Direct one-on-one instruction and skilled instruction in: Employing an assistive device Modified weight-bearing status Movement sequencing Turning and movement with proper form Provided verbal cues for equipment management and technique Provided instruction in gait pattern Patient education regarding pacing and breathing techniques to maximize activity tolerance? GAIT? Assistive Device: ?FWW, ? Left AFO? Weight bearing: FWB Assist: ?CGA ? Distance:?? ?150'? Deviation: ?Hemiplegic gait, foot drop LLE ? STAIRS:? ?Step through gait pattern, bilateral handrails, CGA, 6 steps x2 up and down, 4 steps x3 up and down? Neuromuscular Re-education 03803 10mins: Activities that facilitate re-education of movement balance, posture, coordination, and proprioception or kinesthetic sense, requiring skilled tactile and verbal cues Exercises/techniques: Standing static NBOS/WBOS, tandem, weight shifting L/R, front/back stand pivot transfer going from EOB to commode and vice versa ASSESSMENT:?Pt very happy wit being able to walk, having difficulty wit stair due to vision able to clear obsctacles with verbal cue for guidance with foot placement. PLAN: Continue with balance training, global strengthening and general conditioning for improved safety, mobility and activity tolerance until pt is ready for DC. TREATMENT CODE/TIME: [id number], [id number], 22374l6, 40mins (9:40-10:20am)
--- NOTE | 2023-08-17 17:31 | PGE_ITS ---
Date of Service Date of service: 08/17/23 Time of Service: 17:32 Assessment and Plan Assessment and plan (1) Chronic atrial fibrillation: Status: Chronic Assessment and plan: variable rate control but coming under improved control. She did get two doses of her lopressor 25 mg today and one of her diltiazem 60 mg. I will consolidate her treatment tonight to put her on diltiazem CD 120 mg nightly and tomorrow she will go on Toprol XL 50 mg daily which is what she had been on in the past (prior to her last admission when the dose was titrated to 75 mg bid but she was not on diltiazem at the same time. Professional time spent interviewing and examining patient, discussion of goals of care with hospital team (care management, nursing and consulting professionals) was 35 minutes. (2) SHAILESH (acute kidney injury): Status: Acute Assessment and plan: Improving renal function although BUN still remains elevated at 38 creatinine is normal at 1.2. Her baseline when she left the hospital last time was 0.8. Continue gentle IV fluid hydration (3) Heart failure with reduced ejection fraction: Status: Chronic Assessment and plan: last echo 07/31/23: LVEF 42% w/ global hypokinesis, normal RV size and function, mild to mod. MR, mild TR. holding Entresto, and diuretics, will stop iv fluids at this point. she has had accumulation of 7.7 liters this admission but her overall balance has been 2300+ altough her overall wt of 57.3 kg is still down from when she left the hospital at 59.9 kg. I will put her on low dose midodrine and TEDS to try to keep her BP up and prevent orthostasis. I will keep her off the Entresto for now.. (4) Hypothyroidism: Status: Chronic Assessment and plan: TSH was controlled with last hospitalization and patient will continue usual dose of levothyroxine. Qualifiers: Hypothyroidism type: acquired Qualified Code(s): E03.9 - Hypothyroidism, unspecified Subjective Subjective Interval history since last seen: Patient states she is feeling better. No CP or palpitations and no dyspnea or dizziness. However her BP have been borderline low in the 90's and her diliazem had to be held this afternoon. Exam Narrative Exam Narrative: Elderly female who is pleasant and alert, she has a good sense of humor, she has stuttering which is her baseline Lungs: clear Heart: irregularly irregular; review of telemetry show that her afib has been well controlled for the most part today. This morning when I did tele review w/ the ICU nurses they reported her rhythm to be afib w/ range of 71 to 107 but through today she has been in the 60's to 90. Extremities w/out edema Objective Last Vital Signs Temp 36.2 C L 08/17/23 15:25 Pulse 69 08/17/23 15:25 Resp 16 08/17/23 15:25 BP 95/55 L 08/17/23 15:25 Pulse Ox 97 08/17/23 15:25 Time Spent with Patient Time Spent with Patient: 35-49 minutes Time was spent: preparing to see the patient(eg.review tests), ordering medications,tests, procedures, referring, communicating with other health medicare compliance auditor, indepentently interpreting results, counseling the patient and care coordination
[2023-08-17] MEDS: Lidocaine 5% Patch 1 PATCH TP (19:48)
[2023-08-17] MEDS: Atorvastatin 20 MG TAB PO (19:49)
[2023-08-17] MEDS: dilTIAZem CD 120 MG CAPCR PO (19:49)
[2023-08-17] MEDS: Midodrine 2.5 MG TAB PO (19:49)
[2023-08-17] MEDS: cefTRIAXone 1 GM/50 ML BAG IVPB (21:32)
[2023-08-17] MEDS: QUEtiapine 25 MG TAB PO (21:33)
[2023-08-17] MEDS: Mirtazapine 15 MG TAB 7.5 MG PO (21:33)
[2023-08-18 02:43] VITALS: BP 121/81; PULSE 100; RESP 16; TEMP 35.8; O2SAT 96
[2023-08-18 06:26] LABS: HCT 31.5 % (36.0-46.0); HGB 10.4 g/dL (11.2-15.7); MCH 30.7 pg (27.0-33.0); MCV 93 fL (80-95); MPV 12.5 fL (8.0-11.0); RBC 3.39 10^6/uL (3.93-5.22); RDW 14.1 % (11.7-14.6); RDW-SD 48.6 fL; WBC 2.42 10^3/uL (4.4-10.8)
[2023-08-18] MEDS: Levothyroxine 50 MCG TAB PO (06:33)
[2023-08-18 06:43] LABS: Anion Gap 8.5 mmol/L (3-11); BUN 27 mg/dL (7-18); CO2 22.5 mmol/L (21.0-32.0); CREATININE 0.8 mg/dL (0.55-1.02); Calcium 8.4 mg/dL (8.5-10.1); Chloride 111 mmol/L (98-107); Estimated GFR 72.61 (mL/min/1.73m2); Glucose 90 mg/dL (74-106); NT-proBNP 1483 pg/mL (<300); Potassium 3.9 mmol/L (3.5-5.1); Sodium 142 mmol/L (136-145)
[2023-08-18 06:57] LABS: Absolute Lymphocyte Count 0.61 10^3/uL (1.2-3.4); Absolute Neutrophil Count 1.45 10^3/uL (1.2-6.7); Atypical Lymphocytes % 3; Platelet Count 57 10^3/uL (130-400)
[2023-08-18 06:58] LABS: Absolute Basophil Count 0.07 10^3/uL (0.0-0.2); Absolute Monocyte Count 0.22 10^3/uL (0.1-0.8); Diff Comment Manual Differential; RBC Morphology Normal
[2023-08-18 07:31] VITALS: BP 103/64; PULSE 72; RESP 17; TEMP 35.7; O2SAT 97
[2023-08-18] MEDS: Midodrine 2.5 MG TAB PO (07:48)
[2023-08-18] MEDS: Normal Saline Flush 10 ML SYR IVP (07:48)
[2023-08-18] MEDS: Pantoprazole 40 MG TABCR PO (07:49)
[2023-08-18] MEDS: Apixaban 2.5 MG TAB PO (07:49)
[2023-08-18] MEDS: Empaglifozin 10 MG TAB PO (07:49)
[2023-08-18] MEDS: Metoprolol CR 50 MG TABCR PO (07:49)
[2023-08-18] MEDS: QUEtiapine 25 MG TAB 12.5 MG PO (07:50)
[2023-08-18] MEDS: Gabapentin 100 MG CAP PO ×2 (07:51→14:37)
[2023-08-18] MEDS: Ketoconazole 2% CREAM 15 GM TUBE TP (07:54)
[2023-08-18] MEDS: Lidocaine Patch Removal 1 EACH TP (08:16)
[2023-08-18 11:02] VITALS: BP 103/59; PULSE 77; RESP 16; TEMP 35.6; O2SAT 96
[2023-08-18] MEDS: Fosfomycin Tromethamine 3 GM PACKET PO (11:55)
--- NOTE | 2023-08-18 12:13 | PT.INTREAT ---
PT Notes Visit Reasons: Hypotension, SHAILESH, CHF, CAF Date: 08/18/23 PRECAUTIONS: Standard SUBJECTIVE: Pt in bed awake when approached for therapy this morning, Pt reports she is looking forward to working with PT this morning. OBJECTIVE: ? PAIN: none VITALS: monitored by nursing Therapeutic Activities [id number] 10mins: Direct one-on-one instruction in dynamic activities to improve functional performance. ?? BED MOBILITY/TRANSFERS? Rolling L/R: Supervision Supine-sit: ?Supervision ? Sit-supine: ? ?Supervision ? Sit-stand: ?SBA? Stand-sit: ?SBA? Bed-Chair:? SBA? Chair-bed: SBA Provided skilled cues and instruction on performance and technique throughout. Gait Training 37362 20mins: Direct one-on-one instruction and skilled instruction in: Employing an assistive device Modified weight-bearing status Movement sequencing Turning and movement with proper form Provided verbal cues for equipment management and technique Provided instruction in gait pattern Patient education regarding pacing and breathing techniques to maximize activity tolerance? GAIT? Assistive Device: ?FWW, ? Left AFO? Weight bearing: FWB Assist: ?SBA ? Distance:?? ?150'x1, 300'x1? Seated rest break in between distance? Deviation: ?Hemiplegic gait, foot drop LLE ? STAIRS:? ?Step through gait pattern, bilateral handrails, CGA, 6 steps x2 up and down, 4 steps x3 up and down? Neuromuscular Re-education [id number] 10mins: Activities that facilitate re-education of movement balance, posture, coordination, and proprioception or kinesthetic sense, requiring skilled tactile and verbal cues Exercises/techniques: Standing static NBOS/WBOS, tandem, weight shifting L/R, front/back stand pivot transfer going from EOB to commode and vice versa ASSESSMENT:?Pt able to double distance covered, showed increased stability and decreased level of assistance with transfer. PLAN: Continue with balance training, global strengthening and general conditioning for improved safety, mobility and activity tolerance until pt is ready for DC. TREATMENT CODE/TIME: 06060z5, 64980v7, 56161c1, 40mins (9:00-9:40am)
--- NOTE | 2023-08-18 12:15 | W.PM.DS.N ---
Date of service: 08/18/23 Time of Service: 12:16 DS: Diagnosis Discharge Diagnosis (1) Chronic atrial fibrillation: Status: Chronic Asessment and Plan: Improved with the addition of diltiazem. Patient was started on diltiazem 30 mg p.o. 3 times daily and titrate up to 60 mg p.o. 3 times daily however upon discharge we will start on Cardizem CD 120 mg at night and remain on her metoprolol at a reduced dose of 50 mg daily. We kept her off diuretics and her Entresto. She will remain on Jardiance. (2) Hypotension: Status: Acute Asessment and Plan: Secondary to volume depletion as well as secondary to heart failure medications. As noted above she was given IV fluid hydration and her diuretics were discontinued and Entresto was also discontinued. Patient's been started on midodrine to help with her orthostasis and PUNEET hose have been prescribed. She will remain off the Entresto and Lasix and spironolactone. She is currently euvolemic. Her azotemia has been corrected. (3) SHAILESH (acute kidney injury): Status: Acute Asessment and Plan: Patient presented to hospital with orthostatic dizziness and hypotension was found to be azotemic with a BUN of 40 creatinine 1.7. Her baseline BUN and creatinine are 15 and 0.8. She was rehydrated with IV fluids and IV fluids were stopped the day prior to discharge. BUN on the day of discharge was down to 27 creatinine down to 0.8. Rest of electrolytes were normal. We will keep her off her diuretics as she is euvolemic at this point. We will keep her off her Entresto to allow the blood pressure for titration of her antiarrhythmic medications including diltiazem and metoprolol. (4) Heart failure with reduced ejection fraction: Status: Chronic Asessment and Plan: Although ideally patient should be on spironolactone and Entresto and diuretics at the present time she is euvolemic and does not need to diuretics and we have stopped her Lasix and her spironolactone. We kept her on Jardiance. Entresto was stopped at this point because of not enough blood pressure to restart the Entresto. We need to more blood pressure in order to adjust her antiarrhythmic medications. At a future date the Entresto may need to be restarted at a lower dose possibly just at bedtime. To help with her orthostatics we have prescribed PUNEET jesuse and put her on midodrine 5 mg 3 times daily. (5) E. coli UTI: Status: Acute Asessment and Plan: Blood cultures came back no growth. Urine culture grew E. coli which was pansensitive. She received 3 days of ceftriaxone on the day of discharge she was given a dose of fosfomycin 3 g orally. Recommend follow-up urinalysis in the office next week. (6) Hypothyroidism: Status: Chronic Asessment and Plan: Last TSH was checked during her previous admission and was normal at 1.24. There is been no changes made at to her levothyroxine. This remains at 50 mcg daily. Discharge Plan Disposition Patient Disposition: Home W/Home Health Services Condition: Improving Discharge Details Reason For Visit: Hypotension, SHAILESH, CHF, CAF Admit Date/Time: 08/12/23 22:34 Admit Provider: Brent Carr Attending Provider: Brent Carr Primary Care Provider: Elizabeth Hathaway Home Meds and New Rx's Prescriptions: New diltiazem HCl 120 mg Capsule,Extended Release 24hr 120 mg PO QPM Qty: 30 0RF midodrine 5 mg tablet 5 mg PO TID Qty: 90 0RF Rx Instructions: do not give last dose of day after 6PM or within 4 hrs of bedtime Continued urea [ANIYAH-Urea] 45 % gel 1 applic topical BID Qty: 28 3RF Rx Instructions: Apply to the callus on the left twice daily ketoconazole 2 % cream 1 applic topical DAILY 180 Days Qty: 60 3RF Rx Instructions: Apply to toenails twice daily gabapentin 100 mg capsule 100 mg PO TID Qty: 270 3RF quetiapine 25 mg tablet See Rx Instructions PO .COMPLEX Qty: 135 3RF Rx Instructions: 12.5mg am and 25mg HS orally; Emgality Pen 120 mg/mL pen injector 120 mg subcut QMONTH Qty: 3 3RF triamcinolone acetonide 0.1 % cream 1 applic topical BID PRN (Reason: R ear & hand dermatitis) Qty: 15 0RF Rx Instructions: Use thin layer to affected areas on hand and R ear up to 2x/d; avoid long-term use balsalazide 750 mg capsule See Rx Instructions PO TID Rx Instructions: 05/13/19 [facility] 1500 mg (2 caps) PO three times a day Venofer 200 mg iron/10 mL solution 300 mg IV [id number] Patient Comments: 08/29/21 q 3m per pt now Rx Instructions: 06/01/20- [facility] [place] [facility]-change infusion to every 4 wks. if hgb below 7 will tranfuse. 05/13/19 [facility] [place] [facility] IVF every 6 weeks. 04/05/21 [facility] [place] [facility] Infuse if Hgb<7. 10/25/21 [facility] [place] [facility] - Q16 weeks atorvastatin 20 mg tablet 20 mg PO DAILY Qty: 90 3RF pantoprazole 40 mg tablet,delayed release (DR/EC) 40 mg PO BID Qty: 180 3RF levothyroxine 50 mcg tablet 50 mcg PO DAILY Qty: 90 3RF cyanocobalamin (vitamin B-12) 1,000 mcg/mL solution 1,000 mcg IM monthly Qty: 3 3RF Eliquis 5 mg Tablet 5 mg PO BID Qty: 60 0RF Jardiance 10 mg Tablet 10 mg PO QAM Qty: 30 0RF Changed metoprolol succinate [Toprol XL] 50 mg tablet extended release 24 hr 50 mg PO DAILY Qty: 90 0RF Discontinued furosemide 40 mg Tablet 40 mg PO BID@0830,1600 Qty: 60 0RF Rx Instructions: take lasix at 8 am and 2 pm potassium chloride 10 mEq Capsule, Extended Release 20 meq PO BID Qty: 120 0RF spironolactone 25 mg Tablet 25 mg PO DAILY Qty: 30 0RF Entresto 24-26 mg Tablet 1 tab PO BID Qty: 60 0RF No Action mirtazapine 7.5 mg tablet 7.5 mg PO QHS Qty: 90 3RF Rx Instructions: For appetite, mood, and sleep. (DME) Size M incontinence briefs See Rx Instructions .Route .MEDSUPPLY Qty: 40 11RF Rx Instructions: As directed (typically 1 per day) for urinary incontinence (DME) BD Blunt Plastic Cannula 17 x 3 mL syringe 1 ea Miscellaneous monthly Qty: 3 12RF Rx Instructions: BD 3ml syringes 25Gx1 for B-12 injections Discharge Instructions Referrals: Elizabeth Hathaway RUBBER MOLDER [Primary Care Provider] - (needs appointment in the next week) Activity:: Activity as Tolerated Equipment/Supplies:: No Equipment Needed Diet:: Low Sodium DS: Summary Time Spent with Patient providing and/or coordinating discharge services: Greater than 30 minutes Specific discharge activities: Interview/exam of patient; review of discharge instructions, completion of prescriptions/discharge instructions; discussion w/ nursing and CM; documentation of hospital visit Status at Discharge Functional status at discharge: uses cane/walker Overall status at discharge: patient is progressing back to baseline Mental Status: mental status grossly normal Speech and Movement: speech and movement normal Mood: congruent mood Affect: normal affect Quality:SDOH Health Related Social Needs: No Data to Display Exam Narrative Exam Narrative: Maegan sitting up in bed no acute discomfort no dyspnea no dizziness. Lungs are clear to auscultation Heart is irregularly irregular but at a controlled rate Abdomen soft nontender nondistended No peripheral edema Psych Mental Status: mental status grossly normal Speech and Movement: speech and movement normal Mood: congruent mood Affect: normal affect DS: Data Vitals/I&O Vitals and I&O: Vital Signs Temperature 35.6 C L 08/18/23 11:02 Temperature Source Tympanic 08/18/23 11:02 Pulse 77 08/18/23 11:02 Pulse Rhythm Irregular 08/18/23 08:17 Pulse 118 H 08/16/23 12:01 Respiratory Rate 16 08/18/23 11:02 Respiratory Effort Normal, Non-Labored 08/18/23 08:17 Respiratory Depth Normal 08/18/23 08:17 Respiratory Pattern Normal 08/18/23 08:17 Blood Pressure 103/59 L 08/18/23 11:02 Blood Pressure Mean 73 08/16/23 12:00 Blood Pressure Position Sitting 08/16/23 12:36 Pulse Oximetry 96 08/18/23 11:02 Oxygen Delivery Method Room Air 08/18/23 11:02 Oxygen Flow Rate 0 08/18/23 11:02 Pain Level 0 08/18/23 11:02 Comment RN Notified 08/17/23 20:17 Intake & Output 08/17/23 08/18/23 08/18/23 23:59 11:59 23:59 Intake Total 0 901 150 / 150 Output Total 1050 / 1950 Balance -1050 / -1049 150 / 150 Intake: IV 0 901 40 / 40 Oral 110 / 110 Output: Urine 1050 / 1950 Other: Urine Color Yellow Yellow Urine Appearance Clear Clear Urine Odor None Normal Comment voids independently in toilet voids independently in toilet Voiding Methods Bedside Commode Bedside Commode Data Completed and Pending Labs on day of discharge: Labs from last 24 hours 08/18/23 08/18/23 11:44 05:25 WBC Pending 2.42 L RBC Pending 3.39 L Hgb Pending 10.4 L D Hct Pending 31.5 L MCV Pending 93 MCH Pending 30.7 MCHC Pending 33.0 RDW Pending 14.1 Plt Count Pending 57 L D MPV Pending 12.5 H Immature Gran % Pending 0.0 Neutrophils % Pending 60.0 Lymphocytes % Pending 22.0 Atypical Lymphs % 3 Monocytes % Pending 9.0 Eosinophils % Pending 4.0 Basophils % Pending 3.0 Nucleated RBC % 0.0 Absolute Neutrophils Pending 1.45 Absolute Lymphocytes Pending 0.61 L Absolute Monocytes Pending 0.22 Absolute Eosinophils Pending 0.10 Absolute Basophils Pending 0.07 RBC Morphology Normal Sodium 142 Potassium 3.9 Chloride 111 H Carbon Dioxide 22.5 Anion Gap 8.5 BUN 27 H Creatinine 0.8 Est GFR (CKD-EPI 2020) 72.61 Glucose 90 Calcium 8.4 L NT-Pro-B Natriuret Pep 1483 H Preliminary micro results at discharge 08/15/23 10:02 Blood Culture - Preliminary Blood NO GROWTH 72 HOURS 08/15/23 20:35 Blood Culture - Preliminary Blood NO GROWTH 48 HOURS 08/15/23 20:43 Blood Culture - Preliminary Blood NO GROWTH 48 HOURS 08/15/23 09:52 Blood Culture - Preliminary Blood NO GROWTH 48 HOURS PFSH All Active Problems E. coli UTI (Acute) Chronic atrial fibrillation (Chronic) Hypotension (Acute) SHAILESH (acute kidney injury) (Acute) Heart failure with reduced ejection fraction (Chronic) Acute on chronic HFrEF (heart failure with reduced ejection fraction) (Acute) Aspiration into airway (Acute) Pleural effusion, right (Acute) Sepsis (Acute) Pancytopenia (Acute) Cirrhosis (Acute) Preseptal cellulitis (Acute) Elevated liver function tests (Chronic) Thrombocytopenia (Chronic) Atrial fibrillation with rapid ventricular response (Acute) Urinary incontinence (Acute) Inflammatory bowel disease (Chronic) [facility] [place] [facility] Note 04/17/23 Metatarsalgia of left foot (Acute) Corns and callosities (Acute) Nail dystrophy (Acute) Vascular dementia (Chronic) Delusions (Acute) Alzheimer's dementia with agitation (Acute) Palliative care patient (Acute) Dementia (Chronic) Essential hypertension (Chronic) Onychomycosis (Acute ~06/2021) Iron deficiency anemia (Acute) Managed by [facility] [place] [facility]. 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) Chronic anemia (Chronic 09/04/17) IBD-Crohns Osteoporosis (Chronic 03/27/16) Migraines (Chronic 09/04/17) Hypothyroidism (Chronic 09/04/17) Depression (Chronic 09/12/17) Crohn's disease with complication (Chronic 09/04/17) Crohn's colitis and ileitis, mild-[facility] [place] Note 08/01/22 B12 deficiency (Chronic 09/04/17) Anxiety (Chronic 09/04/17) Medical History Visual hallucinations Sensorineural hearing loss, bilateral Fall Deep vein thrombosis (DVT) (09/12/17) Mild intermittent asthma without complication (09/12/17) Posterior staphyloma [facility] report dated 04/17/18. Brent Castaneda, OD Astigmatism of both eyes [facility] report dated 04/17/18. Brent Castaneda, OD Grade 1 hypertensive retinopathy Meibomian gland dysfunction (MGD) [facility] exam dated 04/17/18. Brent Castaneda, OD Neck pain (09/04/17) Fatigue (09/04/17) Exacerbation of Crohn's disease Microcytic anemia Nonspecific ST-T wave electrocardiographic changes Dehydration Hypomagnesemia Asthma exacerbation Acute bronchitis Influenza A Surgical History H/O colonoscopy (04/07/18) [facility] [place] Hysterectomy, Laproscopic Hiatal Hernia repair (09/11/17) Repair of umbilical hernia (02/21/18) Social History Smoking/Tobacco Use Status: Never Smoking risk assessment performed?: Yes Alcohol Intake: never Substance use type: does not use Household members: children Housing: house Number of Children: 3 Current gender identity: female What is your relationship status?: Panel score (0-1 are the most socially isolated patients): 0 What type of physical activity do you participate in: none Seatbelt use: always Water heater temp set <120 deg: Yes Working smoke detector in home: Yes Fire extinguisher in home: Yes Carbon monox detector in home: Yes Firearms in home: No Do you feel safe at home: Yes Do you feel safe in your relationship?: Yes History History Para 3 Hx # Term Pregnancies Multiple births Hx # Pregnancies Ectopic pregnancies AB induced Hx Number of Living Children AB spontaneous Time Spent with Patient Time Spent with Patient: <45 minutes Time was spent: preparing to see the patient(eg.review tests), ordering medications,tests, procedures, referring, communicating with other health manager progressive care, indepentently interpreting results, counseling the patient and care coordination
--- NOTE | 2023-08-18 12:24 | PDOC.HHF2F ---
Home Health Referral Home Health Orders Clinical synopsis of why skilled professionals are needed: Resumption of home health services including nursing, physical therapy, Occupational Therapy, speech therapy, er medical technician. Patient had recent hospitalization due to orthostatic hypotension and dehydration brought on by aggressive diuretic use and heart failure medications. Patient needs nursing to monitor her vitals including blood pressure and pulse monitor her heart rhythm as well as reconciliation of her home medicines and to coordinate with her primary care provider any new changes in her medicines. Physical therapy and Occupational Therapy to work with the patient to improve her strength gait and balance as well as improve her ability to perform her ADLs independently. Speech therapy to follow-up on her swallowing as she was found to have dysphagia during her last hospitalization. Monitor for any coughing or choking spells with eating monitor any modifications in her diet and coordinate with her primary care provider. Medical diagnosis necessitation home health referral: Acute azotemia, dehydration, heart failure with reduced ejection fraction, dysphagia, dementia, thrombocytopenia Registered Nurse: Check all that apply Instruct on new or changed medication(s)/assess compliance: Ordered Assess for exacerbation of medical condition, instruct patient/caregivers on signs and symptoms to report for early detection: Ordered Physical Therapist: Check all that apply Increase strength & endurance for safe mobility at home: Ordered To design/establish home maintenance program: Ordered Occupational Therapist: Evaluate and treat for patient unable to perform ADL/IADL/self-care: Ordered Speech Therapist: Check all that apply For swallow evaluation/therapy due to dysphagia: Ordered Track Inspector: Assist with community resources: Ordered Home Bound Status Requires the aid of supportive device (check all that apply): Wheelchair Patient has a condition such that leaving home is medically contraindicated (Describe): worsening work of breathing from CHF and atrial fibrillation Describe why leaving home would require a considerable and taxing effort: Requires frequent rest periods and Confusion Encounter Date and Reason: I certify that a FTF encounter for this patient was performed on August 18, 2023 and that such encounter was related to the primary reason the patient requires home health services. The encounter was conducted in the following manner: By me as the certifying physician, ELEMENTARY SCHOOL PROFESSIONAL, PA or By an inpatient physician, ELEMENTARY SCHOOL PROFESSIONAL or PA during an inpatient stay who communicated findings to me, Certification And Authentication I certify that I composed the above information based on my clinical judgment relating to this patient's medical condition and, if applicable, clinical findings communicated to me by the NPP or inpatient physician who performed the FTF encounter. Name of Provider that will be monitoring home health services: Elizabeth Hathaway
[2023-08-18 12:26] LABS: Abs Immature Grans 0.02 10^3/uL (0.0-0.06); HCT 35.5 % (36.0-46.0); HGB 11.7 g/dL (11.2-15.7); MCV 94 fL (80-95); MPV 11.9 fL (8.0-11.0); RBC 3.78 10^6/uL (3.93-5.22); RDW 14.2 % (11.7-14.6); WBC 3.09 10^3/uL (4.4-10.8)
[2023-08-18 12:29] LABS: Absolute Neutrophil Count 1.95 10^3/uL (1.2-6.7); Platelet Count 71 10^3/uL (130-400)
[2023-08-18 12:30] LABS: Absolute Basophil Count 0.09 10^3/uL (0.0-0.2); Absolute Eosinophil Count 0.12 10^3/uL (0.0-0.7); Absolute Lymphocyte Count 0.68 10^3/uL (1.2-3.4); Absolute Monocyte Count 0.25 10^3/uL (0.1-0.8); Atypical Lymphocytes % 2; Diff Comment Manual Differential
[2023-08-18 12:35] LABS: RBC Morphology Normal
--- NOTE | 2023-08-18 13:59 | PDOC.CMDIS ---
Date of service: 08/18/23 Time of Service: 13:59 LACE Index Scoring Tool Questions: Length of Stay (in days): 4 - 6 Was the patient admitted via the E.D.?: Yes Comorbidities: Congestive Heart Failure, Dementia and Liver or Renal Disease E.D. Visits: 2 Answers: Total Score: 14 Risk of Readmission: High Risk Care Management Discharge Plan Reason for Hospitalization: atrial fibrillation with RVR Discharge Plan: Maegan will be discharge home with new home health services for RN, PT, OT, HEAD OF HOUSEKEEPING and RENTAL COORDINATOR. She will follow up with her community providers and plan of care and transport with her son. Patient/Family Education Needs: review of discharge instructions, activity, limitations, follow up plan, discuss Ask Me Three Services Needed at Discharge: Home Health Care Services SDOH Health Related Social Needs: No Data to Display
[2023-08-18] MEDS: Midodrine 2.5 MG TAB 5 MG PO (14:38)
== END 2023-08-18 14:49 | disposition home health service (06) | DRG 312 ==
LOC: ER 23:02 → MS 08-13 15:24 → ICU 08-15 06:30 → MS 08-16 17:15
PROVIDERS: Internal Medicine; Admitting Provider Family Medicine; Emergency Provider Nurse Practitioner Acute Care; PCP Nurse Practitioner Adult Health; Visit Provider Family Medicine
DX: I95.2 Hypotension due to drugs (principal); N17.9 Acute kidney failure, unspecified; I48.20 Chronic atrial fibrillation, unspecified; N39.0 Urinary tract infection, site not specified; I50.22 Chronic systolic (congestive) heart failure; D61.818 Other pancytopenia; F02.811 Dementia in other diseases classified elsewhere, unspecified severity, with agitation; F01.511 Vascular dementia, unspecified severity, with agitation; K50.90 Crohn's disease, unspecified, without complications; T50.1X5A Adverse effect of loop [high-ceiling] diuretics, initial encounter; T46.5X5A Adverse effect of other antihypertensive drugs, initial encounter; E03.9 Hypothyroidism, unspecified; B96.20 Unspecified Escherichia coli [E. coli] as the cause of diseases classified elsewhere; E87.5 Hyperkalemia; Z66 Do not resuscitate; K74.60 Unspecified cirrhosis of liver; D69.6 Thrombocytopenia, unspecified; R32 Unspecified urinary incontinence; G30.9 Alzheimer's disease, unspecified; I11.0 Hypertensive heart disease with heart failure; D50.9 Iron deficiency anemia, unspecified; N32.81 Overactive bladder; H90.3 Sensorineural hearing loss, bilateral; M21.372 Foot drop, left foot; F32.A Depression, unspecified; E53.8 Deficiency of other specified B group vitamins; F41.9 Anxiety disorder, unspecified; M81.0 Age-related osteoporosis without current pathological fracture; G43.909 Migraine, unspecified, not intractable, without status migrainosus; R26.9 Unspecified abnormalities of gait and mobility; H35.30 Unspecified macular degeneration; R41.0 Disorientation, unspecified
CPT/HCPCS: 00123; 36410; 36415; 80048; 80053; 84145; 85027; 87040; 87077; 93005; 96360; 97110; 97112; 97116; 97162; 97530; 99285; 70450; 71045; 71046; 81003; 81015; 83735; 83880; 84484; 85025; 85610; 86140; 87086; 87186; 93010; 99223; 99232; 99233; 99239; 99291; J0696; J2405; J3490

== ENCOUNTER → 2023-08-15 09:42 | Outpatient (BNVA) | payer MEDICARE, OTHER, MEDICAID, SELFPAY | PROVIDERS: PCP Nurse Practitioner Adult Health; Referring Provider Nurse Practitioner Adult Health; Visit Provider Internal Medicine Interventional Cardiology ==

== ENCOUNTER 2023-08-28 12:46 | Outpatient (REF) | payer MEDICARE, OTHER, MEDICAID, SELFPAY ==
[2023-08-28 13:12] LABS: HCT 31.2 % (36.0-46.0); MCH 31.3 pg (27.0-33.0); MCHC 32.1 % (32.0-36.0); MCV 98 fL (80-95); MPV 11.3 fL (8.0-11.0); Platelet Count 130 10^3/uL (130-400); RDW 15.6 % (11.7-14.6); WBC 4.76 10^3/uL (4.4-10.8)
[2023-08-28 13:35] LABS: ALT 31 U/L (14-59); AST 65 U/L (15-37); Albumin 3.1 g/dL (3.4-5.0); Alkaline Phosphatase 161 U/L (46-116); Anion Gap 10.3 mmol/L (3-11); BUN 29 mg/dL (7-18); Bilirubin, Total 0.6 mg/dL (0.2-1.0); CO2 24.7 mmol/L (21.0-32.0); CREATININE 1.1 mg/dL (0.55-1.02); Calcium 8.7 mg/dL (8.5-10.1); Chloride 109 mmol/L (98-107); Estimated GFR 49.55 (mL/min/1.73m2); Glucose 90 mg/dL (74-106); Magnesium 2.2 mg/dL (1.8-2.4); NT-proBNP 465 pg/mL (<300); Sodium 144 mmol/L (136-145); Total Protein 6.4 g/dL (6.4-8.2)
[2023-08-28 14:16] LABS: Calculated LDL 55 mg/dL (<100); Cholesterol 115 mg/dL (<200); HDL Cholesterol 44 mg/dL (40-60); Triglyceride 83 mg/dL (<150); Vitamin B12 906 pg/mL (193-986)
== END 2023-08-28 12:47 | disposition home or self-care (01) ==
LOC: LBN 12:46
PROVIDERS: PCP Nurse Practitioner Adult Health; Visit Provider Nurse Practitioner Adult Health
DX: D50.9 Iron deficiency anemia, unspecified (principal); E53.8 Deficiency of other specified B group vitamins; I10 Essential (primary) hypertension; D69.6 Thrombocytopenia, unspecified; I48.20 Chronic atrial fibrillation, unspecified; I50.20 Unspecified systolic (congestive) heart failure; J90 Pleural effusion, not elsewhere classified; K74.60 Unspecified cirrhosis of liver; E78.5 Hyperlipidemia, unspecified
CPT/HCPCS: 80053; 80061; 85027; 82140; 82607; 83735; 83880

== ENCOUNTER 2023-09-02 07:57 | Outpatient (CLI) | payer MEDICARE, OTHER, MEDICAID, SELFPAY ==
--- NOTE | 2023-09-02 09:30 | W.CARDEVENT ---
Date of service: 09/02/23 Time of Service: 09:31 Cardiac Event Recorder Referring Provider:: Elizabeth Hathaway Indications:: Atrial fibrillation Cardiac Event Note: This is a cardiac event monitor ordered for atrial fibrillation. Patient was monitored for a total of 8 days 1 hour Atrial fibrillation with present throughout with an average heart rate of 98. Minimum was 50, maximum 163 There were rare ventricular ectopic beats There were no pauses greater than 3 seconds, no high-grade AV block 1 patient symptom was reported which correlated to atrial fibrillation with a rate of 105
== END 2023-09-27 23:59 | disposition home or self-care (01) ==
LOC: CARDOPNVT 07:57
PROVIDERS: PCP Nurse Practitioner Adult Health; Visit Provider Internal Medicine Cardiovascular Disease
DX: I48.91 Unspecified atrial fibrillation (principal)
CPT/HCPCS: 93248; 93270

== ENCOUNTER 2023-09-12 20:27 | Outpatient (REF) | payer MEDICARE, OTHER, MEDICAID, SELFPAY ==
[2023-09-12 12:48] LABS: Absolute Basophil Count 0.03 10^3/uL (0.0-0.2); Absolute Eosinophil Count 0.07 10^3/uL (0.0-0.7); Absolute Lymphocyte Count 0.41 10^3/uL (1.2-3.4); Absolute Monocyte Count 0.25 10^3/uL (0.1-0.8); Absolute Neutrophil Count 2.35 10^3/uL (1.2-6.7); Eosinophils % 2.3; HCT 30.7 % (36.0-46.0); HGB 9.6 g/dL (11.2-15.7); Lymphocytes % 13.2; MCH 30.7 pg (27.0-33.0); MCHC 31.3 % (32.0-36.0); MCV 98 fL (80-95); MPV 11.3 fL (8.0-11.0); Neutrophils % 75.5; Platelet Count 100 10^3/uL (130-400); RBC 3.13 10^6/uL (3.93-5.22); RDW 15.2 % (11.7-14.6); RDW-SD 54.7 fL; WBC 3.11 10^3/uL (4.4-10.8)
[2023-09-12 13:08] LABS: Anion Gap 7.7 mmol/L (3-11); BUN 10 mg/dL (7-18); CO2 25.3 mmol/L (21.0-32.0); CREATININE 0.9 mg/dL (0.55-1.02); Calcium 8.7 mg/dL (8.5-10.1); Chloride 111 mmol/L (98-107); Estimated GFR 63.04 (mL/min/1.73m2); Ferritin 374 ng/mL (8-252); Glucose 115 mg/dL (74-106); Magnesium 1.7 mg/dL (1.8-2.4); Sodium 144 mmol/L (136-145)
== END 2023-09-12 20:28 | disposition home or self-care (01) ==
LOC: LBN 20:27
PROVIDERS: PCP Nurse Practitioner Adult Health; Referring Provider Nurse Practitioner Adult Health; Visit Provider Nurse Practitioner Adult Health
DX: I10 Essential (primary) hypertension (principal); D50.9 Iron deficiency anemia, unspecified; D64.9 Anemia, unspecified; K50.919 Crohn's disease, unspecified, with unspecified complications; R19.7 Diarrhea, unspecified; I50.20 Unspecified systolic (congestive) heart failure; I48.20 Chronic atrial fibrillation, unspecified
CPT/HCPCS: 80048; 82728; 83735; 85025

== ENCOUNTER 2023-09-18 12:26 | Outpatient (REF) | payer MEDICARE, OTHER, MEDICAID, SELFPAY ==
[2023-09-18 13:50] LABS: HCT 32.5 % (36.0-46.0); MCH 30.1 pg (27.0-33.0); MCHC 30.8 % (32.0-36.0); MCV 98 fL (80-95); MPV 10.8 fL (8.0-11.0); Platelet Count 101 10^3/uL (130-400); RBC 3.32 10^6/uL (3.93-5.22); RDW 14.8 % (11.7-14.6); RDW-SD 53.4 fL; WBC 2.92 10^3/uL (4.4-10.8)
== END 2023-09-18 12:27 | disposition home or self-care (01) ==
LOC: NCHCN 12:26
PROVIDERS: PCP Nurse Practitioner Adult Health; Visit Provider Nurse Practitioner Adult Health
DX: D64.9 Anemia, unspecified (principal); D50.8 Other iron deficiency anemias; K50.919 Crohn's disease, unspecified, with unspecified complications
CPT/HCPCS: 85027

== ENCOUNTER → 2023-09-19 15:06 | Outpatient (BNVA) | payer MEDICARE, OTHER, MEDICAID, SELFPAY | PROVIDERS: PCP Nurse Practitioner Adult Health; Referring Provider Nurse Practitioner Adult Health; Visit Provider Nurse Practitioner Adult Health | DX: G30.9 Alzheimer's disease, unspecified (principal); F02.811 Dementia in other diseases classified elsewhere, unspecified severity, with agitation; G43.009 Migraine without aura, not intractable, without status migrainosus | CPT/HCPCS: 99213 ==

== ENCOUNTER 2023-09-25 14:44 | Outpatient (REF) | payer MEDICARE, OTHER, MEDICAID, SELFPAY ==
[2023-09-25 13:28] LABS: HCT 32.9 % (36.0-46.0); HGB 10.1 g/dL (11.2-15.7); MCH 29.6 pg (27.0-33.0); MCHC 30.7 % (32.0-36.0); MCV 97 fL (80-95); MPV 11.7 fL (8.0-11.0); Platelet Count 102 10^3/uL (130-400); RBC 3.41 10^6/uL (3.93-5.22); RDW-SD 53.1 fL; WBC 2.46 10^3/uL (4.4-10.8)
== END 2023-09-25 14:45 | disposition home or self-care (01) ==
LOC: LBN 14:44
PROVIDERS: PCP Nurse Practitioner Adult Health; Referring Provider Nurse Practitioner Adult Health; Visit Provider Nurse Practitioner Adult Health
DX: D50.8 Other iron deficiency anemias (principal)
CPT/HCPCS: 85027

== ENCOUNTER 2023-10-09 04:45 | Outpatient (RCR) | payer MEDICARE, OTHER, MEDICAID, SELFPAY ==
[2023-10-09] MEDS: IRON SUCROSE COMPLEX 300 MG in Normal Saline 250 ML 176.667 MG IVPB (12:06)
[2023-10-09] MEDS: Normal Saline Flush 10 ML SYR IVP (12:07)
[2023-10-09 13:16] LABS: HCT 37.5 % (36.0-46.0); HGB 11.7 g/dL (11.2-15.7); MCH 30.4 pg (27.0-33.0); MCHC 31.2 % (32.0-36.0); MCV 97 fL (80-95); MPV 11.1 fL (8.0-11.0); Platelet Count 124 10^3/uL (130-400); RBC 3.85 10^6/uL (3.93-5.22); RDW 14.9 % (11.7-14.6); RDW-SD 53.6 fL; WBC 2.98 10^3/uL (4.4-10.8)
[2023-10-09 13:56] LABS: Iron 48 ug/dL (50-170); Total Iron Binding Capacity 277 ug/dL (250-450); Transferrin Sat 17 % (15-50)
[2023-10-09 13:58] LABS: Anion Gap 8.2 mmol/L (3-11); BUN 16 mg/dL (7-18); CO2 26.8 mmol/L (21.0-32.0); CREATININE 0.7 mg/dL (0.55-1.02); Calcium 9.3 mg/dL (8.5-10.1); Calculated LDL 68 mg/dL (<100); Chloride 110 mmol/L (98-107); Cholesterol 154 mg/dL (<200); Estimated GFR 85.23 (mL/min/1.73m2); Ferritin 423 ng/mL (8-252); Glucose 128 mg/dL (74-106); HDL Cholesterol 71 mg/dL (40-60); Potassium 3.3 mmol/L (3.5-5.1); Sodium 145 mmol/L (136-145); Triglyceride 75 mg/dL (<150); Vitamin B12 578 pg/mL (193-986)
== END 2023-10-20 23:59 | disposition home or self-care (01) ==
LOC: INF 04:45
PROVIDERS: PCP Nurse Practitioner Adult Health; Visit Provider Family Medicine
DX: D50.9 Iron deficiency anemia, unspecified (principal); I10 Essential (primary) hypertension; Z13.1 Encounter for screening for diabetes mellitus; E53.8 Deficiency of other specified B group vitamins
CPT/HCPCS: 36415; 80048; 80061; 85027; 96365; 96366; 82607; 82728; 83540; 83550; J1756

== ENCOUNTER 2023-12-09 20:41 | Inpatient (IN) | payer MEDICARE, OTHER, MEDICAID, SELFPAY ==
[2023-12-09] VITALS (19 sets, daily range): BP systolic 99–116; BP diastolic 52–73; PULSE 69–107; RESP 13–22; TEMP 36.6; O2SAT 97–100
--- NOTE | 2023-12-09 21:00 | DI.CT_ITS ---
Exam(s) CT ABDOMEN PELVIS W EXAM: CT ABDOMEN PELVIS W CLINICAL HISTORY: Abdominal pain Crohn's. TECHNIQUE: Imaging Protocol: Axial computed tomography images with coronal and sagittal reformatted images were created and reviewed CONTRAST MATERIAL: Intravenous: Omnipaque 350 Contrast volume:100 ml Oral: yes COMPARISON: CT CT CHEST/ABD/PEL W from 09/15/[address] CHEST PE CTA from 07/29/2023 FINDINGS: ABDOMEN and PELVIS: Lung Bases: No acute findings. Moderate size hiatal hernia. Adjacent suture material. Liver: Normal density. No suspicious mass. Gallbladder and biliary tract: No radiodense calculus. Stable mild biliary dilation. Pancreas: Normal density. No abnormal calcifications or inflammatory process. No evidence of mass. Spleen: Normal. Kidneys: Normal size, contour and axis. No radiodense stones. No obstructive uropathy. No suspicious masses seen. Stable renal cysts. Adrenal glands: No masses seen. Vasculature: Abdominal aorta non-dilated. Atherosclerotic changes. Soft tissues: Bilateral fat containing inguinal hernias. Bladder: No gross wall thickening. No calculi.No focal mass. Bowel: No obstruction. Wall thickening involving the ascending colon with mild stranding in the radha rounding fat, consistent with colitis. Mild enhancement and wall thickening of the terminal ileum. Colon is decompressed distally. Appendix normal. Peritoneal cavity: No ascites. No focal collection. Bones: Hardware at L5-S1. Degenerative changes at more superior levels. Mild scoliosis. Reproductive organs: Status post hysterectomy. Lymph nodes: No pathologically enlarged lymph nodes. IMPRESSION:: Findings consistent with colitis of the ascending colon and terminal ileitis. RADIATION DOSE DELIVERED: 675.77mGy.cm Total DLP DATA REPOSITORY: All CT scans at this facility are submitted to the National Radiology Data Registry (NRDR) Dose Index Registry (DIR) with the [employer] (ACR). RADIATION OPTIMIZATION: All CT scans at this facility use at least one of these dose optimization te chniques: automated exposure control; mA and/or kV adjustment per patient size (includes targeted exa ms where dose is matched to clinical indication); or iterative reconstruction.
--- NOTE | 2023-12-09 21:15 | RT.EKG_ITS ---
APPROVED REPORT Exam: Resting ECG Reason for Exam: Nausea Patient Location: E HR:79 bpm ECG Measurements Heart Rate 79 AXIS MO [id number] P [id number] QRSd 79 QRS 4 QT 404 T 232 QTc 463 Conclusion Atrial fibrillation...? atrial activity Rate controlled atrial fibrillation at a rate of 79. Normal axis. No ST segment abnormalities. T w ave flattening V4 through V6. QTc within normal limits. No prior for comparison.
[2023-12-09] MEDS: Ondansetron 4 MG/2 ML VIAL IVP (21:42)
[2023-12-09] MEDS: Normal Saline 500 ML 250 ML IV (21:42)
[2023-12-09 21:43] LABS: Abs Immature Grans 0.01 10^3/uL (0.0-0.06); Absolute Basophil Count 0.05 10^3/uL (0.0-0.2); Absolute Eosinophil Count 0.04 10^3/uL (0.0-0.7); Absolute Lymphocyte Count 0.47 10^3/uL (1.2-3.4); Absolute Neutrophil Count 2.87 10^3/uL (1.2-6.7); Basophils % 1.4 %; Eosinophils % 1.1 %; HCT 23.7 % (36.0-46.0); Immature Grans % 0.3 %; Lymphocytes % 12.9 %; MCH 28.6 pg (27.0-33.0); MCHC 29.5 % (32.0-36.0); MCV 97 fL (80-95); MPV 10.6 fL (8.0-11.0); Monocytes % 5.5 %; Neutrophils % 78.8 %; Platelet Count 131 10^3/uL (130-400); RBC 2.45 10^6/uL (3.93-5.22); RDW-SD 60.4 fL; WBC 3.64 10^3/uL (4.4-10.8)
--- NOTE | 2023-12-09 21:57 | W.ED.GENAD ---
Discharge Plan Disposition Patient Disposition: Admit to [facility] Discharge Details Clinical Impression: Acute blood loss anemia, Hypokalemia, Hypocalcemia, Colitis, Terminal ileitis Primary Care Provider: Elizabeth Hathaway ED Provider: Jesús Ochoa [place] Meds and New Rx's Prescriptions: No Action mirtazapine 7.5 mg tablet 7.5 mg PO QHS Qty: 90 3RF Rx Instructions: For appetite, mood, and sleep. urea [ANIYAH-Urea] 45 % gel 1 applic topical BID Qty: 28 3RF Rx Instructions: Apply to the callus on the left twice daily quetiapine 25 mg tablet See Rx Instructions PO .COMPLEX Qty: 135 3RF Rx Instructions: 12.5mg am and 25mg HS orally; Emgality Pen 120 mg/mL pen injector 120 mg subcut QMONTH Qty: 3 3RF nystatin 100,000 unit/gram cream 1 applic topical QID Qty: 60 3RF loratadine 10 mg tablet 10 mg PO DAILY Qty: 30 0RF triamcinolone acetonide 0.1 % cream 1 applic topical BID PRN (Reason: R ear & hand dermatitis) Qty: 15 0RF Rx Instructions: Use thin layer to affected areas on hand and R ear up to 2x/d; avoid long-term use (DME) Size M incontinence briefs See Rx Instructions .Route .MEDSUPPLY Qty: 40 11RF Rx Instructions: As directed (typically 1 per day) for urinary incontinence apixaban 2.5 mg tablet 2.5 mg PO BID Qty: 180 3RF gabapentin 100 mg capsule 100 mg PO DAILY PRN (Reason: headaches) Qty: 30 3RF balsalazide 750 mg capsule See Rx Instructions PO TID Rx Instructions: 05/13/19 [facility] 1500 mg (2 caps) PO three times a day Venofer 200 mg iron/10 mL solution 300 mg IV [id number] Patient Comments: 08/29/21 q 3m per pt now Rx Instructions: 06/01/20- [facility] Gastro-change infusion to every 4 wks. if hgb below 7 will tranfuse. 05/13/19 [facility] G[facility] IVF every 6 weeks. mk 04/05/21 [facility] Infuse if Hgb<7. 10/25/21 [facility] Gastro - Q16 weeks (DME) BD Blunt Plastic Cannula 17 x 3 mL syringe 1 ea Miscellaneous monthly Qty: 3 12RF Rx Instructions: BD 3ml syringes 25Gx1 for B-12 injections cyanocobalamin (vitamin B-12) 1,000 mcg/mL solution 1,000 mcg IM monthly Qty: 3 3RF atorvastatin 20 mg tablet 20 mg PO DAILY Qty: 90 3RF pantoprazole 40 mg tablet,delayed release (DR/EC) 40 mg PO BID Qty: 180 3RF diltiazem HCl 120 mg capsule,extended release 24hr 120 mg PO QPM Qty: 90 3RF Jardiance 10 mg tablet See Rx Instructions .ROUTE .COMPLEX Qty: 90 0RF Dose Instruction: TAKE ONE TABLET BY MOUTH EVERY MORNING Rx Instructions: TAKE ONE TABLET BY MOUTH EVERY MORNING levothyroxine 50 mcg tablet 50 mcg PO DAILY Qty: 90 3RF midodrine 5 mg tablet 5 mg PO TID Qty: 90 0RF Rx Instructions: do not give last dose of day after 6PM or within 4 hrs of bedtime metoprolol succinate [Toprol XL] 50 mg tablet extended release 24 hr 50 mg PO DAILY Qty: 90 0RF HPI General Date/Time Provider Initiated Documentation: 12/09/23 21:10. HPI Narrative: MDM This is a chronically ill appearing normothermic and not tachycardic 83-year-old female with nausea and diarrhea and abdominal tenderness concerning for Crohn's flare for which patient will undergo CT scan. She has no melena to suggest upper GI bleed. No recent antibiotics to suggest increased risk for C. difficile and no fevers. No dysuria nor frequency so doubt UTI. No pain out of proportion to suggest necrotizing soft tissue infection. No chest pain to suggest ACS though based on age and nausea will obtain troponin and ECG. No cough to suggest pneumonia. No rash to abdomen to suggest zoster. No left upper quadrant tenderness to suggest increased risk for splenic arterial aneurysm. No right lower quadrant tenderness to suggest appendicitis. No left lower quadrant tenderness to suggest diverticulitis. Given diarrhea I am not suspicious for small bowel obstruction. Patient is not obese and has no epigastric tenderness so I am not suspicious for pancreatitis. No fall so doubt intra-abdominal trauma. Clear equal breath sounds so doubt pneumothorax. No cough to suggest pneumonia. No hip tenderness to suggest hip fracture. 10 PM Comprehensive metabolic panel showing mild hypokalemia with a serum potassium of 3.1. No SHAILESH. Mild hyperglycemia but no anion gap and normal bicarbonate??not consistent with DKA. Mild hypothalassemia. No acute LFT abnormalities. 10:42 PM Mild leukopenia improved compared to prior. No thrombocytopenia. COVID influenza RSV all negative. Negative troponin. Hemoglobin 7.0. No melena. Given history of heart failure will transfuse 2 units and plan on hospitalizing patient. Patient is anticoagulated but I do not see an active blush on CT scan. Given her apixaban use and concern for GI bleed well reversed with 4 factor PCC. 11:[address] scan showing ascending colitis and terminal ileitis likely related to the patient's Crohn's disease. No abscess. No obstruction nor stricture. No mention of bleeding on CT report. In the [facility] EMR system there was report of a remote small bowel bleeding. No episodes of hematochezia in the emergency department. Will reach out to gastroenterology at [facility] where patient follows to discuss possibility of steroid burst. Otherwise we will encourage bowel rest. Patient did receive some IV fluids prior to blood products. She would likely benefit from delayed endoscopy. Will treat with 80 mg of pantoprazole. Will keep patient NPO. 11:55 PM I placed a consult with GI at [facility] with request for evaluation of the patient's CT scan. I have asked dental technician apprentice Ariadne to have the images pushed. Will ask GI about recommendations of whether or not to initiate steroids. I spoke with Dr. Carr who agreed to accept the patient for hospitalization. Patient remained stable. No hematochezia nor bright red blood per rectum during her emergency department stay. 12:08 AM I spoke to Dr. Sheriff from GI. He advised infectious stool studies: c.diff, stool culture, fecal calprotectin, CRP. If stool studies are unremarkable he advised steroids. He advised repeat consult once studies return or if clinical picture changes. I updated Dr. Carr. Chronic conditions affecting the care of the patient: Crohn's disease History obtained from an outside historian: [id number] External record review: N/A Diagnostic interpretations performed by me: Per my independent interpretation EKG shows: Rate controlled atrial fibrillation at a rate of 79. Normal axis. No ST segment abnormalities. T wave flattening V4 through V6. QTc within normal limits. No prior for comparison. ]Medications: Blood Social determinants of health affecting disposition: N/A Management discussed with: Hospitalist Treatment/interventions considered: N/A Response to therapies provided: N/A HPI This is an 83-year-old female with history of Crohn's disease managed with oral balasalazide by gastroenterology at [facility] now arriving to the emergency department via private vehicle with her [id number] in the setting of nausea and diarrhea for the past 2 days. Patient reports that she has been nauseous in the morning and had several episodes of diarrhea. She reports that she has been able to tolerate some toast but developed nausea and diarrhea again this morning. Denies black or bloody stools. No recent steroids. Denies dysuria. Denies chest pain and cough. Endorses abdominal pain that is central. No recent changes in medications. Exam General: Well-appearing in no acute distress speaking in complete sentences. Head: Normocephalic, atraumatic. Eye: Extraocular eye movements intact. No conjunctival injection. No scleral icterus. Ear, nose, mouth, throat: Grossly normal inspection. Normal voice, handling secretions normally. Neck: Trachea midline. Cardiovascular: Well-perfused distal extremities. Irregularly irregular rhythm Respiratory: Nonlabored respiration. Clear lungs bilaterally. Gastrointestinal: Nondistended abdomen. Periumbilical tenderness. No hernias. No right lower quadrant tenderness. No rebound. No guarding. No left lower quadrant tenderness. Rectal: With patient's [id number] in the room and performed external and internal rectal exam. No stigmata of recent bleeding. No external hemorrhoids. No stool in vault. No melena. No bright red blood. Musculoskeletal: No edema. Moving all 4 extremities spontaneously. Skin: Normal for age and race, grossly normal temperature and turgor. No acute rash. Neurologic: Alert and appropriate, no apparent acute deficits. Psychiatric: Mood and manner are appropriate. Grooming and personal hygiene are appropriate. Related Data Home Medications Medication Instructions Recorded Confirmed balsalazide 750 mg capsule See Rx Instructions PO TID 05/14/19 09/19/23 iron sucrose 200 mg iron/10 mL 300 mg IV [id number] 10/26/21 09/19/23 intravenous solution (Venofer) syringe with cannula,disposabl 17 #3 SYRGS 10/22/22 09/19/23 x 3 mL (BD Blunt Plastic Cannula) mirtazapine 7.5 mg tablet 7.5 mg PO QHS #90 tabs 12/13/22 09/19/23 urea 45 % topical gel (ANIYAH-Urea) 1 applic topical BID #28 mL 03/07/23 09/19/23 cyanocobalamin (vitamin B-12) 1,000 mcg IM monthly #3 vials 06/19/23 09/19/23 1,000 mcg/mL injection solution quetiapine 25 mg tablet See Rx Instructions PO .COMPLEX 06/27/23 09/19/23 #135 tabs Size M incontinence briefs #40 ea 07/25/23 09/19/23 galcanezumab-gnlm 120 mg/mL 120 mg subcut QMONTH #3 mL 07/25/23 09/19/23 subcutaneous pen injector (Emgality Pen) triamcinolone acetonide 0.1 % 1 applic topical BID PRN R ear & 07/25/23 09/19/23 topical cream hand dermatitis #15 grams metoprolol succinate 50 mg 50 mg PO DAILY #90 tabs 08/18/23 09/19/23 tablet,extended release 24 hr (Toprol XL) apixaban 2.5 mg tablet 2.5 mg PO BID #180 tabs 08/22/23 09/19/23 atorvastatin 20 mg tablet 20 mg PO DAILY #90 tabs 09/11/23 09/19/23 diltiazem HCl 120 mg 120 mg PO QPM #90 caps 09/11/23 09/19/23 capsule,extended release 24 hr pantoprazole 40 mg tablet,delayed 40 mg PO BID #180 tabs 09/11/23 09/19/23 release gabapentin 100 mg capsule 100 mg PO DAILY PRN headaches #30 09/19/23 09/19/23 caps empagliflozin 10 mg tablet See Rx Instructions .Route 11/04/23 (Jardiance) .COMPLEX #90 tabs loratadine 10 mg tablet 10 mg PO DAILY #30 tabs 11/12/23 11/12/23 nystatin 100,000 unit/gram topical 1 applic topical QID groin folds 11/12/23 11/12/23 cream rash #60 grams levothyroxine 50 mcg tablet 50 mcg PO DAILY #90 tabs 11/13/23 midodrine 5 mg tablet 5 mg PO TID #90 tabs 11/27/23 Previous Rx's Medication Instructions Recorded syringe with cannula,disposabl 17 #3 SYRGS 10/22/22 x 3 mL (BD Blunt Plastic Cannula) mirtazapine 7.5 mg tablet 7.5 mg PO QHS #90 tabs 12/13/22 urea 45 % topical gel (ANIYAH-Urea) 1 applic topical BID #28 mL 03/07/23 cyanocobalamin (vitamin B-12) 1,000 mcg IM monthly #3 vials 06/19/23 1,000 mcg/mL injection solution quetiapine 25 mg tablet See Rx Instructions PO .COMPLEX 06/27/23 #135 tabs Size M incontinence briefs #40 ea 07/25/23 galcanezumab-gnlm 120 mg/mL 120 mg subcut QMONTH #3 mL 07/25/23 subcutaneous pen injector (Emgality Pen) triamcinolone acetonide 0.1 % 1 applic topical BID PRN R ear & 07/25/23 topical cream hand dermatitis #15 grams metoprolol succinate 50 mg 50 mg PO DAILY #90 tabs 08/18/23 tablet,extended release 24 hr (Toprol XL) apixaban 2.5 mg tablet 2.5 mg PO BID #180 tabs 08/22/23 atorvastatin 20 mg tablet 20 mg PO DAILY #90 tabs 09/11/23 diltiazem HCl 120 mg 120 mg PO QPM #90 caps 09/11/23 capsule,extended release 24 hr pantoprazole 40 mg tablet,delayed 40 mg PO BID #180 tabs 09/11/23 release gabapentin 100 mg capsule 100 mg PO DAILY PRN headaches #30 09/19/23 caps empagliflozin 10 mg tablet See Rx Instructions .Route 11/04/23 (Jardiance) .COMPLEX #90 tabs loratadine 10 mg tablet 10 mg PO DAILY #30 tabs 11/12/23 nystatin 100,000 unit/gram topical 1 applic topical QID groin folds 11/12/23 cream rash #60 grams levothyroxine 50 mcg tablet 50 mcg PO DAILY #90 tabs 11/13/23 midodrine 5 mg tablet 5 mg PO TID #90 tabs 11/27/23 Allergies Allergy/AdvReac Type Severity Reaction Status Date / Time acetaminophen AdvReac Intermediate Headache Verified 12/09/23 21:36 ibuprofen AdvReac Intermediate Headache Verified 12/09/23 21:36 lactose intolerant AdvReac Intermediate cramps, Uncoded 12/09/23 21:36 diarrhea General Stated Complaint: Abd Prob ADALGISA: 3 Course Vital Signs Vital signs: Vital Signs Temperature 36.6 C 12/09/23 20:49 Pulse 76 12/09/23 20:49 Respiratory Rate 20 12/09/23 20:49 Blood Pressure 116/55 L 12/09/23 20:49 Pulse Oximetry 100 12/09/23 20:49 Temperature 36.6 C 12/09/23 20:49 Temperature Source Tympanic 12/09/23 20:49 Pulse 94 H 12/09/23 21:20 Respiratory Rate 18 12/09/23 21:20 Respiratory Effort Normal, Non-Labored 12/09/23 21:19 Blood Pressure 105/63 12/09/23 21:20 Blood Pressure Position Sitting 12/09/23 21:20 Pulse Oximetry 99 12/09/23 21:20 Oxygen Delivery Method Room Air 12/09/23 21:20 Oxygen Flow Rate 0 12/09/23 20:49 Pain Level 0 12/09/23 20:49 Lab/Test Results Lab/Test Results: Laboratory Tests Range/Units 12/09/23 12/09/23 21:34 21:54 Hgb (11.2-15.7) g/dL 7.0 L* Crossmatch See Detail Medical Decision Making Quality:SDOH Health Related Social Needs: No Data to Display Critical Care Time Critical Care Time Critical Care Time: Yes Total Critical Care Time: 30 Attestation: Acute blood loss anemia PFSH All Active Problems (Updated 12/09/23 @ 23:49 by Jesús Ochoa MD) Terminal ileitis (Acute) Colitis (Acute) Hypocalcemia (Acute) Hypokalemia (Acute) Acute blood loss anemia (Acute) Chronic atrial fibrillation (Chronic) Heart failure with reduced ejection fraction (Chronic) Aspiration into airway (Acute) Pleural effusion, right (Acute) Pancytopenia (Acute) Cirrhosis (Acute) Thrombocytopenia (Chronic) Urinary incontinence (Acute) Inflammatory bowel disease (Chronic) [facility] G[facility] Note 04/17/23 Metatarsalgia of left foot (Acute) Corns and callosities (Acute) Nail dystrophy (Acute) Vascular dementia (Chronic) Delusions (Acute) Alzheimer's dementia with agitation (Acute) Palliative care patient (Acute) Dementia (Chronic) Essential hypertension (Chronic) Onychomycosis (Acute ~06/2021) Iron deficiency anemia (Acute) Managed by [facility]. 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 Brent Castaneda, OD Astigmatism of both eyes [facility] report dated 04/17/18. Brent Castaneda, OD Grade 1 hypertensive retinopathy Meibomian gland dysfunction (MGD) [facility] exam dated 04/17/18. Brent Castaneda, OD Neck pain (09/04/17) Fatigue (09/04/17) Exacerbation of Crohn's disease Microcytic anemia Nonspecific ST-T wave electrocardiographic changes Dehydration Hypomagnesemia Asthma exacerbation Acute bronchitis Influenza A Surgical History H/O colonoscopy (04/07/18) [facility] Hysterectomy, Laproscopic Hiatal Hernia repair (09/11/17) Repair of umbilical hernia (09/11/17) Social History Smoking/Tobacco Use Status: Never Smoking risk assessment performed?: Yes Alcohol Intake: never Drug use: Never Substance use type: does not use Household members: children Housing: house Number of Children: 3 Current gender identity: female What is your relationship status?: Panel score (0-1 are the most socially isolated patients): 0 What type of physical activity do you participate in: none Seatbelt use: always Water heater temp set <120 deg: Yes Working smoke detector in home: Yes Fire extinguisher in home: Yes Carbon monox detector in home: Yes Firearms in home: No Do you feel safe at home: Yes Do you feel safe in your relationship?: Yes History History Para 3 Hx # Term Pregnancies Multiple births Hx # Pregnancies Ectopic pregnancies AB induced Hx Number of Living Children AB spontaneous
[2023-12-09 21:58] LABS: ALT 16 U/L (14-59); AST 22 U/L (15-37); Albumin 3.1 g/dL (3.4-5.0); Alkaline Phosphatase 104 U/L (46-116); Anion Gap 10.6 mmol/L (3-11); BUN 14 mg/dL (7-18); Bilirubin, Total 0.6 mg/dL (0.2-1.0); CO2 21.4 mmol/L (21.0-32.0); CREATININE 0.9 mg/dL (0.55-1.02); Calcium 8.2 mg/dL (8.5-10.1); Chloride 108 mmol/L (98-107); Estimated GFR 63.04 (mL/min/1.73m2); Glucose 109 mg/dL (74-106); Potassium 3.1 mmol/L (3.5-5.1); Sodium 140 mmol/L (136-145); Total Protein 6.5 g/dL (6.4-8.2)
[2023-12-09 22:02] LABS: Anisocytosis 1+; Diff Comment RBC Morph Reviewed
[2023-12-09 22:03] LABS: Troponin I < 50 ng/L (< or =60)
[2023-12-09] MEDS: Normal Saline - Diluent 50 ML VIAL IJ (22:13)
[2023-12-09] MEDS: Omnipaque 350 MG/ML 100 ML BTL IJ (22:13)
[2023-12-09] MEDS: Normal Saline Flush 10 ML SYR IVP (22:14)
[2023-12-09 22:18] LABS: COVID-19 PCR Negative (Negative); Influenza A PCR Negative (Negative); Influenza B PCR Negative (Negative); RSV PCR Negative (Negative)
[2023-12-09 22:20] LABS: Source Nasopharynx
[2023-12-09] MEDS: Calcium Carbonate *TUMS* 500 MG CHEW PO (23:26)
[2023-12-09] MEDS: Potassium Chloride 20 MEQ TABCR 40 MEQ PO (23:26)
[2023-12-09] MEDS: Pantoprazole 40 MG VIAL 80 MG IVP (23:26)
--- NOTE | 2023-12-09 23:36 | DI.VRAD_ITS ---
PROCEDURE INFORMATION: Exam: CT Abdomen And Pelvis With Contrast Exam date and time: 12/09/2023 10:23 PM Age: 83 years old Clinical indication: Other: Abdominal pain, crohns TECHNIQUE: Imaging protocol: Computed tomography of the abdomen and pelvis with contrast. Contrast material: OMNIPAQUE 350; Contrast volume: 100 ml; Contrast route: INTRAVENOUS (IV); COMPARISON: CT CHEST/ABD/PEL W 09/15/2018 5:36 PM FINDINGS: Lungs: There are atelectatic changes in both lung bases. Coronary arteries: Mild coronary artery calcifications. Diaphragm: Moderate hiatal hernia. Liver: Normal. No mass. Gallbladder and bile ducts: There is mild dilatation of the CBD but no obstructing lesions, measuring up to 1 cm, unchanged. Pancreas: Normal. No ductal dilation. Spleen: Normal. No splenomegaly. Adrenal glands: Normal. No mass. Kidneys and ureters: Simple cyst in the interpolar region of the left kidney measuring 1 cm. There is a stable exophytic hyperdense lesion measuring 8 mm from lower pole of the left kidney. No hydronephrosis on either side. Stomach and bowel: There is wall thickening of the ascending colon with mild surrounding fat stranding, consistent with colitis. Collapsed distal colon. Mild wall thickening and enhancement of the terminal ileum adjacent to the ileocecal valve. Appendix: No evidence of appendicitis. Intraperitoneal space: Unremarkable. No free air. No significant fluid collection. Vasculature: Vascular calcifications. Lymph nodes: Unremarkable. No enlarged lymph nodes. Urinary bladder: Unremarkable as visualized. Reproductive: Unremarkable as visualized. Bones/joints: Postsurgical changes of L5-S1 posterior decompression and fusion. Moderate degenerative of L3-L4 and L4-L5 disc space narrowing, anterior and posterior osteophytes. Soft tissues: Bilateral fat containing inguinal hernias. Traction enthesophytes of bilateral hamstring tendons. Mild degenerative of the pubis chondrocalcinosis. Mild curvature of the lumbar spine convex the right. IMPRESSION: 1. Findings suggestive of ascending colitis terminal ileitis, likely related to patient's known Crohn's disease. 2. No abscess formation, bowel obstruction or stricture. Dictated and Authenticated by: Boris Bailon MD. Ordering:JIMY Espinosa MD
[2023-12-10] VITALS (38 sets, daily range): BP systolic 100–139; BP diastolic 49–81; PULSE 65–93; RESP 11–24; TEMP 35.8–37; O2SAT 94–100
[2023-12-10 00:17] LABS: HCT 23.1 % (36.0-46.0)
[2023-12-10] MEDS: HUMAN PROTHROM. CMPX. 1,500 UNIT in EMPTY EVACUATED CONTAINER 1 EACH 360 UNIT IV (00:17)
[2023-12-10 00:21] LABS: HGB 6.8 g/dL (11.2-15.7)
--- NOTE | 2023-12-10 00:30 | HPE_ITS ---
Date of service: 12/10/23 Time of Service: 00:31 Assessment and Plan Assessment and plan (1) Acute blood loss anemia: Start date: 12/10/23 Status: Acute Assessment and plan: This is an 83-year-old lady with known Crohn's disease having increased diarrhea recently abdominal cramping but no fever and no elevated WBC. She is minimally tender and her CRP was low. Stool evaluation has been performed and patient is not being placed on steroids but continued on her outpatient medical therapy for Crohn's disease. She will receive blood transfusion for hemoglobin stability usually in the 8 to 9 g/dL range. She chronically has anemia and does receive iron infusions as needed. Her outpatient physician will continue to follow-up for deficiencies with supplementation. She is still [place] [facility] was consulted but may not need to perform endoscopies at this time unless patient becomes unstable. She is a DNR/DNI. (2) Hypokalemia: Start date: 12/10/23 Status: Acute Assessment and plan: Mild hypokalemia possibly from GI loss with increased stooling. Patient was given oral supplementation and will follow-up potassium adjusting replacement as needed. Magnesium to be checked. (3) Crohn's disease with complication: Status: Chronic Assessment and plan: Patient CRP is low and this may not be a flare of Crohn's disease. Stool evaluation for infectious etiologies with no change and treatment for now. Qualifiers: Gastrointestinal tract location: unspecified location Qualified Code(s): K50.919 - Crohn's disease, unspecified, with unspecified complications (4) Chronic atrial fibrillation: Status: Chronic Assessment and plan: On Eliquis with patient being reversed because probable GI blood loss. Hold for now and restart once patient is stable. She is a DNR. (5) Heart failure with reduced ejection fraction: Status: Chronic Assessment and plan: Patient does have a history of heart failure and fluid resuscitation with blood transfusion will be done cautiously. (6) Dementia: Status: Chronic Assessment and plan: Patient outpatient medical therapy will be continued. This appears to be mild and she has had no behavioral abnormalities thus far. Qualifiers: Dementia behavioral or psychological symptom: unspecified whether behavioral, psychotic, or mood disturbance or anxiety Dementia severity: u nspecified severity Dementia type: unspecified type Qualified Code(s): F03.90 - Unspecified dementia, unspecified severity, without behavioral disturbance, psychotic disturbance, mood disturbance, and anxiety History of Present Illness History of Present Illness Chief Complaint: Nausea with abdominal pain and diarrhea Narrative: This is an 83-year-old female patient with Crohn's disease seen [place] [facility] [place]. She presented to the ED with a 2-day history of loose stools without discomfort other than cramping pain which increased the day prior to presentation. She denies any blood in her stool. She currently has anemia and has been receiving iron infusions but not monthly. She states that she does not require blood transfusions often. When seen in the ED she had profound anemia which appear to be blood loss anemia with hemoglobin dropping below 7 g/dL. She was slightly tachycardic and her systolic blood pressure was below 100 earlier during her ED visit. She received 1 unit of packed red blood cells overnight was receiving her second unit when brought to [facility]. Her tachycardia has resolved and blood pressures were stable. Denies any abdominal pain at rest but did have some discomfort with exam (see physical exam). Gastroenterology adhesions he was consulted by the ED physician and they advised not starting on steroids but stool testing for infectious etiologies as well as inflammatory process. They did recommend transfusion. Patient was admitted for transfusion and further testing for C. difficile ordered and occult blood testing of her stool ordered. She does have a history of chronic atrial fibrillation on Eliquis and this was reversed in the ED. This will be held for now. The patient was comfortable and was a poor historian with some history of dementia on medical therapy. Her family does take care of her medications. She is a DNR/DNI. Review of Systems Narrative: 13 point review of systems otherwise unrevealing or unobtainable. [facility] All Active Problems (Updated 12/10/23 @ 02:12 by ANGEL DELEON) Terminal ileitis (Acute) Colitis (Acute) Hypocalcemia (Acute) Hypokalemia (Acute) Acute blood loss anemia (Acute) Chronic atrial fibrillation (Chronic) Heart failure with reduced ejection fraction (Chronic) Aspiration into airway (Acute) Pleural effusion, right (Acute) Pancytopenia (Acute) Cirrhosis (Acute) Thrombocytopenia (Chronic) Urinary incontinence (Acute) Inflammatory bowel disease (Chronic) [facility] [place] 04/17/23 Metatarsalgia of left foot (Acute) Corns and callosities (Acute) Nail dystrophy (Acute) Vascular dementia (Chronic) Delusions (Acute) Alzheimer's dementia with agitation (Acute) Palliative care patient (Acute) Dementia (Chronic) Essential hypertension (Chronic) Onychomycosis (Acute ~06/2021) Iron deficiency anemia (Acute) Managed by [facility]. 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 Brent Castaneda, OD Astigmatism of both eyes [facility] report dated 04/17/18. Brent Castaneda, OD Grade 1 hypertensive retinopathy Meibomian gland dysfunction (MGD) [facility] exam dated 04/17/18. Brent Castaneda, OD Neck pain (09/04/17) Fatigue (09/04/17) Exacerbation of Crohn's disease Microcytic anemia Nonspecific ST-T wave electrocardiographic changes Dehydration Hypomagnesemia Asthma exacerbation Acute bronchitis Influenza A Surgical History H/O colonoscopy (04/07/18) [facility] [place]rectomy, Laproscopic Hiatal Hernia repair (09/11/17) Repair of umbilical hernia (09/11/17) Social History Smoking/Tobacco Use Status: Never Smoking risk assessment performed?: Yes Alcohol Intake: never Drug use: Never Substance use type: does not use Household members: children Housing: house Number of Children: 3 Current gender identity: female What is your relationship status?: Panel score (0-1 are the most socially isolated patients): 0 What type of physical activity do you participate in: none Seatbelt use: always Water heater temp set <120 deg: Yes Working smoke detector in home: Yes Fire extinguisher in home: Yes Carbon monox detector in home: Yes Firearms in home: No Do you feel safe at home: Yes Do you feel safe in your relationship?: Yes History History 2 Para 3 Hx # Term Pregnancies Multiple births Hx # Pregnancies Ectopic pregnancies AB induced Hx Number of Living Children AB spontaneous Meds Allergies and Home Medications Allergies Allergy/AdvReac Type Severity Reaction Status Date / Time acetaminophen AdvReac Intermediate Headache Verified 12/09/23 21:36 ibuprofen AdvReac Intermediate Headache Verified 12/09/23 21:36 lactose intolerant AdvReac Intermediate cramps, Uncoded 12/09/23 21:36 diarrhea Home Medications Medication Instructions Recorded Confirmed Type balsalazide 750 mg capsule See Rx Instructions PO TID 05/14/19 12/10/23 History iron sucrose 200 mg iron/10 mL 300 mg IV [id number] 10/26/21 12/10/23 History intravenous solution (Venofer) syringe with cannula,disposabl 17 #3 SYRGS 10/22/22 12/10/23 Rx x 3 mL (BD Blunt Plastic Cannula) mirtazapine 7.5 mg tablet 7.5 mg PO QHS #90 tabs 12/13/22 12/10/23 Rx urea 45 % topical gel (ANIYAH-Urea) 1 applic topical BID #28 mL 03/07/23 12/10/23 Rx cyanocobalamin (vitamin B-12) 1,000 mcg IM monthly #3 vials 06/19/23 12/10/23 Rx 1,000 mcg/mL injection solution quetiapine 25 mg tablet See Rx Instructions PO .COMPLEX 06/27/23 12/10/23 Rx #135 tabs Size M incontinence briefs #40 ea 07/25/23 12/10/23 Rx galcanezumab-gnlm 120 mg/mL 120 mg subcut QMONTH #3 mL 07/25/23 12/10/23 Rx subcutaneous pen injector (Emgality Pen) triamcinolone acetonide 0.1 % 1 applic topical BID PRN R ear & 07/25/23 12/10/23 Rx topical cream hand dermatitis #15 grams metoprolol succinate 50 mg 50 mg PO DAILY #90 tabs 08/18/23 12/10/23 Rx tablet,extended release 24 hr (Toprol XL) apixaban 2.5 mg tablet 2.5 mg PO BID #180 tabs 08/22/23 12/10/23 Rx atorvastatin 20 mg tablet 20 mg PO DAILY #90 tabs 09/11/23 12/10/23 Rx diltiazem HCl 120 mg 120 mg PO QPM #90 caps 09/11/23 12/10/23 Rx capsule,extended release 24 hr pantoprazole 40 mg tablet,delayed 40 mg PO BID #180 tabs 09/11/23 12/10/23 Rx release gabapentin 100 mg capsule 100 mg PO DAILY PRN headaches #30 09/19/23 12/10/23 Rx caps empagliflozin 10 mg tablet See Rx Instructions .Route 11/04/23 12/10/23 Rx (Jardiance) .COMPLEX #90 tabs loratadine 10 mg tablet 10 mg PO DAILY #30 tabs 11/12/23 12/10/23 Rx nystatin 100,000 unit/gram topical 1 applic topical QID groin folds 11/12/23 12/10/23 Rx cream rash #60 grams levothyroxine 50 mcg tablet 50 mcg PO DAILY #90 tabs 11/13/23 12/10/23 Rx midodrine 5 mg tablet 5 mg PO TID #90 tabs 11/27/23 12/10/23 Rx Exam Narrative Exam Narrative: General: Patient appears appropriate for age, alert and oriented to least person place, in no acute distress and comfortable lying flat in bed. HEENT: Normocephalic, eyes with pupils equal and reactive to light symmetrically, extraocular movement intact and sclera anicteric. Oropharynx with normal mucosa and fair dentition. Neck: Supple without JVD. Back: Kyphotic without CVA tenderness. Lungs: Fair aeration with no focalizing rales or rhonchi. No expiratory wheeze. Breast: Exam deferred. Heart: Irregularly irregular rhythm with normal rate. No appreciable murmur or gallop. Abdomen: Slightly obese contour with tenderness to palpation and guarding without rebound over the lower abdomen especially on the right. Soft to palpation. Bowel sounds are hyperactive in all quadrants. Genitalia/rectal: Exam deferred. Extremities: No clubbing, cyanosis and with nonpitting edema both lower extremities. Good capillary refill. Skin: Pale, warm and dry. Neuro: Cranial nerves II through XII gross intact, no focal motor deficits no tremor. Psych: Flattened affect with wandering conversation but mood appears normal. No abnormal thought processes. Remote memory intact with recent memory less intact. Results Imaging Imaging Studies: Exam: CT Abdomen And Pelvis With Contrast Exam date and time: 12/09/2023 10:23 PM Age: 83 years old Clinical indication: Other: Abdominal pain, crohns with; COMPARISON: CT CHEST/ABD/PEL W 09/15/2018 5:36 PM FINDINGS: Lungs: There are atelectatic changes in both lung bases. Coronary arteries: Mild coronary artery calcifications. Diaphragm: Moderate hiatal hernia. Liver: Normal. No mass. Gallbladder and bile ducts: There is mild dilatation of the CBD but no obstructing lesions, measuring up to 1 cm, unchanged. Pancreas: Normal. No ductal dilation. Spleen: Normal. No splenomegaly. Adrenal glands: Normal. No mass. Kidneys and ureters: Simple cyst in the interpolar region of the left kidney measuring 1 cm. There is a stable exophytic hyperdense lesion measuring 8 mm from lower pole of the left kidney. No hydronephrosis on either side. Stomach and bowel: There is wall thickening of the ascending colon with mild surrounding fat stranding, consistent with colitis. Collapsed distal colon. Mild wall thickening and enhancement of the terminal ileum adjacent to the ileocecal valve. Appendix: No evidence of appendicitis. Intraperitoneal space: Unremarkable. No free air. No significant fluid collection. Vasculature: Vascular calcifications. Lymph nodes: Unremarkable. No enlarged lymph nodes. Urinary bladder: Unremarkable as visualized. Reproductive: Unremarkable as visualized. Bones/joints: Postsurgical changes of L5-S1 posterior decompression and fusion. Moderate degenerative of L3-L4 and L4-L5 disc space narrowing, anterior and posterior osteophytes. Soft tissues: Bilateral fat containing inguinal hernias. Traction enthesophytes of bilateral hamstring tendons. Mild degenerative of the pubis chondrocalcinosis. Mild curvature of the lumbar spine convex the right. IMPRESSION: 1. Findings suggestive of ascending colitis terminal ileitis, likely related to patient's known Crohn's disease. 2. No abscess formation, bowel obstruction or stricture. Labs 12/10/23 08:10 12/10/23 08:10 Labs: Laboratory Results - last 24 hr 12/09/23 12/09/23 12/10/23 21:34 22:00 00:11 WBC 3.64 L RBC 2.45 L Hgb 7.0 L* 6.8 L* Hct 23.7 L 23.1 L MCV 97 H MCH 28.6 MCHC 29.5 L RDW 17.0 H Plt Count 131 MPV 10.6 Immature Gran % 0.3 Neutrophils % 78.8 Lymphocytes % 12.9 Monocytes % 5.5 Eosinophils % 1.1 Basophils % 1.4 Nucleated RBC % 0.0 Absolute Neutrophils 2.87 Absolute Lymphocytes 0.47 L Absolute Monocytes 0.20 Absolute Eosinophils 0.04 Absolute Basophils 0.05 RBC Morphology See Below Anisocytosis 1+ Sodium 140 Potassium 3.1 L Chloride 108 H Carbon Dioxide 21.4 Anion Gap 10.6 BUN 14 Creatinine 0.9 Est GFR (CKD-EPI 2020) 63.04 Glucose 109 H Calcium 8.2 L Total Bilirubin 0.6 AST 22 ALT 16 Alkaline Phosphatase 104 Troponin I < 50 Total Protein 6.5 Albumin 3.1 L COVID-19 Source Nasopharynx SARS-CoV-2 (PCR) Negative Influenza Type A (PCR) Negative Influenza Type B (PCR) Negative RSV (PCR) Negative ABO/Rh A Positive Antibody Screen NEGATIVE Crossmatch See Detail Last Vital Signs Temp 36.6 C 12/09/23 20:49 Pulse 78 12/10/23 00:01 Resp 13 12/10/23 00:10 BP 123/53 L 12/10/23 00:01 Pulse Ox 100 12/09/23 23:01 Time Spent Time spent with Patient: >75 minutes Time was spent: preparing to see the patient(eg.review tests), obtaining and/or reviewing separately otained hiistory, ordering medications,tests, procedures, referring, communicating with other health laboratory animal caretaker, indepentently interpreting results, counseling the patient and care coordination
[2023-12-10] MEDS: Lactated Ringers 1,000 ML 100 ML IV ×2 (02:25→15:52)
[2023-12-10 03:01] LABS: Anion Gap 9.1 mmol/L (3-11); BUN 12 mg/dL (7-18); CO2 20.9 mmol/L (21.0-32.0); CREATININE 0.8 mg/dL (0.55-1.02); Calcium 8.2 mg/dL (8.5-10.1); Chloride 110 mmol/L (98-107); Estimated GFR 72.61 (mL/min/1.73m2); Glucose 99 mg/dL (74-106); Potassium 3.9 mmol/L (3.5-5.1); Sodium 140 mmol/L (136-145)
[2023-12-10 03:04] LABS: C-Reactive Protein < 0.50 mg/dL (<or=0.5)
[2023-12-10] MEDS: Metoprolol 12.5 MG TAB PO ×3 (04:32→19:32)
[2023-12-10] MEDS: Midodrine 2.5 MG TAB 5 MG PO ×3 (06:00→17:32)
[2023-12-10] MEDS: Levothyroxine 50 MCG TAB PO (06:00)
--- NOTE | 2023-12-10 08:06 | SCONE_ITS ---
Date of service: 12/10/23 Time of Service: 08:06 Assessment and Plan Assessment and plan (1) Acute blood loss anemia: Status: Acute Assessment and plan: 83-year-old woman with Crohn's disease and a history of ulcer disease who is on blood thinners and has seen some melanotic stools and is now acutely anemic. She is hemodynamically stable. Cross-sectional imaging suggests active Crohn's and I defer to [facility] for management strategy and recommendations. (They were contacted last night) Separately the patient self?reports a personal history of ulcer disease(in the past) and says that she has had recent endoscopy performed. I do not think there is a role at this time for emergency or even urgent endoscopy unless [facility] wants us to do one. Considering all of her known history and frequent procedures, I do not think we need to repeat them at this time just because she has had some bleeding. Hopefully the bleeding will subside by withholding the anticoagulation alone. She is DNR/DNI. Surgery signing off at this time. Call us back if anything changes or if [facility] wants us to perform more procedures(colonoscopy and endoscopy) History of Present Illness Narrative: Maegan is an 83-year-old woman who has known Crohn's that is managed by [facility]. She has had Crohn's disease for decades. History self?reports that she is up-to-date on her endoscopy and colonoscopy and says that she routinely gets both of these procedures performed simultaneously. She self?reports history of stomach ulcers and anemia and thinks that is why she always gets endoscopies done. She is on blood thinners for atrial fibrillation. At the bedside this morning she denies any abdominal pain and says she feels herself. She does say that she had black stools a couple of days ago. She has not vomited any blood. She has not seen any bright red blood. She has an extensive intra-abdominal surgical history. [facility] All Active Problems (Updated 12/10/23 @ 02:12 by ANGEL DELEON) Terminal ileitis (Acute) Colitis (Acute) Hypocalcemia (Acute) Hypokalemia (Acute) Acute blood loss anemia (Acute) Chronic atrial fibrillation (Chronic) Heart failure with reduced ejection fraction (Chronic) Aspiration into airway (Acute) Pleural effusion, right (Acute) Pancytopenia (Acute) Cirrhosis (Acute) Thrombocytopenia (Chronic) Urinary incontinence (Acute) Inflammatory bowel disease (Chronic) [facility] [facility] [place] Metatarsalgia of left foot (Acute) Corns and callosities (Acute) Nail dystrophy (Acute) Vascular dementia (Chronic) Delusions (Acute) Alzheimer's dementia with agitation (Acute) Palliative care patient (Acute) Dementia (Chronic) Essential hypertension (Chronic) Onychomycosis (Acute ~06/2021) Iron deficiency anemia (Acute) Managed by [facility]. 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 Brent Castaneda, OD Astigmatism of both eyes [facility] report dated 04/17/18. Brent Castaneda, OD Grade 1 hypertensive retinopathy Meibomian gland dysfunction (MGD) [facility] exam dated 04/17/18. Brent Castaneda, OD Neck pain (09/04/17) Fatigue (09/04/17) Exacerbation of Crohn's disease Microcytic anemia Nonspecific ST-T wave electrocardiographic changes Dehydration Hypomagnesemia Asthma exacerbation Acute bronchitis Influenza A Surgical History H/[place] colonoscopy (04/07/18) [facility] [place]rectomy[place] Laproscopic Hiatal Hernia repair (09/11/17) Repair of umbilical hernia (09/11/17) Social History Smoking/Tobacco Use Status: Never Smoking risk assessment performed?: Yes Alcohol Intake: never Drug use: Never Substance use type: does not use Household members: children Housing: house Number of Children: 3 Current gender identity: female What is your relationship status?: Panel score (0-1 are the most socially isolated patients): 0 What type of physical activity do you participate in: none Seatbelt use: always Water heater temp set <120 deg: Yes Working smoke detector in home: Yes Fire extinguisher in home: Yes Carbon monox detector in home: Yes Firearms in home: No Do you feel safe at home: Yes Do you feel safe in your relationship?: Yes History History 2 Para 3 Hx # Term Pregnancies Multiple births Hx # Pregnancies Ectopic pregnancies AB induced Hx Number of Living Children AB spontaneous Exam Narrative Exam Narrative: General: Nontoxic, comfortable and interactive Neuro: Alert and oriented x 3 Psych: Upbeat and pleasant mood and affect, excellent history and insight into her conditions Abdomen: Soft, nondistended and nontender Results Last Vital Signs Temp 96.4 F L 12/10/23 07:27 Pulse 68 12/10/23 07:27 Resp 17 12/10/23 07:27 BP 123/64 12/10/23 07:27 Pulse Ox 99 12/10/23 07:27 Labs 12/10/23 08:10 12/10/23 08:10 Labs: Laboratory Results - last 24 hr 12/09/23 12/09/23 12/10/23 21:34 22:00 00:11 WBC 3.64 L RBC 2.45 L Hgb 7.0 L* 6.8 L* Hct 23.7 L 23.1 L MCV 97 H MCH 28.6 MCHC 29.5 L RDW 17.0 H Plt Count 131 MPV 10.6 Immature Gran % 0.3 Neutrophils % 78.8 Lymphocytes % 12.9 Monocytes % 5.5 Eosinophils % 1.1 Basophils % 1.4 Nucleated RBC % 0.0 Absolute Neutrophils 2.87 Absolute Lymphocytes 0.47 L Absolute Monocytes 0.20 Absolute Eosinophils 0.04 Absolute Basophils 0.05 RBC Morphology See Below Anisocytosis 1+ Sodium 140 Potassium 3.1 L Chloride 108 H Carbon Dioxide 21.4 Anion Gap 10.6 BUN 14 Creatinine 0.9 Est GFR (CKD-EPI 2020) 63.04 Glucose 109 H Calcium 8.2 L Magnesium 2.0 Total Bilirubin 0.6 AST 22 ALT 16 Alkaline Phosphatase 104 Troponin I < 50 C-Reactive Protein Total Protein 6.5 Albumin 3.1 L COVID-19 Source Nasopharynx SARS-CoV-2 (PCR) Negative Influenza Type A (PCR) Negative Influenza Type B (PCR) Negative RSV (PCR) Negative ABO/Rh A Positive Antibody Screen NEGATIVE Crossmatch See Detail 12/10/23 02:43 WBC RBC Hgb Hct MCV MCH MCHC RDW Plt Count MPV Immature Gran % Neutrophils % Lymphocytes % Monocytes % Eosinophils % Basophils % Nucleated RBC % Absolute Neutrophils Absolute Lymphocytes Absolute Monocytes Absolute Eosinophils Absolute Basophils RBC Morphology Anisocytosis Sodium 140 Potassium 3.9 Chloride 110 H Carbon Dioxide 20.9 L Anion Gap 9.1 BUN 12 Creatinine 0.8 Est GFR (CKD-EPI 2020) 72.61 Glucose 99 Calcium 8.2 L Magnesium Total Bilirubin AST ALT Alkaline Phosphatase Troponin I C-Reactive Protein < 0.50 Total Protein Albumin COVID-19 Source SARS-CoV-2 (PCR) Influenza Type A (PCR) Influenza Type B (PCR) RSV (PCR) ABO/Rh Antibody Screen Crossmatch
[2023-12-10] MEDS: Pantoprazole 40 MG TABCR PO ×2 (08:21→16:24)
[2023-12-10] MEDS: dilTIAZem 30 MG TAB PO ×2 (08:21→19:32)
[2023-12-10] MEDS: QUEtiapine 25 MG TAB 12.5 MG PO (08:22)
[2023-12-10] MEDS: Empaglifozin 10 MG TAB PO (08:22)
[2023-12-10] MEDS: Loratidine 10 MG TAB PO (08:22)
[2023-12-10 08:24] LABS: HCT 29.5 % (36.0-46.0); HGB 8.9 g/dL (11.2-15.7); MCH 28.7 pg (27.0-33.0); MCHC 30.2 % (32.0-36.0); MCV 95 fL (80-95); MPV 10.2 fL (8.0-11.0); Platelet Count 111 10^3/uL (130-400); RDW 17.9 % (11.7-14.6); RDW-SD 61.1 fL; WBC 2.91 10^3/uL (4.4-10.8)
[2023-12-10] MEDS: Nystatin CREAM 30 GM TUBE TP ×3 (08:27→16:24)
[2023-12-10 08:32] LABS: INR 1.1 (0.9-1.1); Prothrombin Time 11.2 sec (9.1-11.1)
[2023-12-10 08:44] LABS: ALT 15 U/L (14-59); AST 21 U/L (15-37); Albumin 2.9 g/dL (3.4-5.0); Alkaline Phosphatase 96 U/L (46-116); Anion Gap 9.7 mmol/L (3-11); BUN 11 mg/dL (7-18); Bilirubin, Total 1.6 mg/dL (0.2-1.0); CO2 22.3 mmol/L (21.0-32.0); CREATININE 0.8 mg/dL (0.55-1.02); Calcium 8.1 mg/dL (8.5-10.1); Chloride 110 mmol/L (98-107); Estimated GFR 72.61 (mL/min/1.73m2); Glucose 89 mg/dL (74-106); Magnesium 1.9 mg/dL (1.8-2.4); Sodium 142 mmol/L (136-145); TSH (W/Ref FT4) 1.44 uIU/mL (0.36-3.74); Total Protein 6.1 g/dL (6.4-8.2)
--- NOTE | 2023-12-10 11:28 | PDOC.CMIN ---
Date of service: 12/10/23 Time of Service: 11:28 Care Management Initial Assmt Initial Assessment Reason for Hospitalization: Acute bloodloss anemia, Chrohn's disease Functional Status/Living Situation Town of Residence: [facility] Resides with: Child (Son Gus) Significant Other/Family: Local (Sons: Gus, Bryan and Miles. DIL Sushila. Bryan brings her to appointments, and her daughter in law Sushila checks in on her frequently. Gus does the grocery shopping and cooks some of the meals.) Caregiver/Guardian: Maegan has a caregiver/wire harness assembler, who comes twice a week and another one who comes monthly. These are paid through [facility]. Employment Status: Retired Instrumental Activities of Daily Living (ADLs): Independent Activities/Hobbies/SocialSupport: Word search Medications Medication Management: No Issues/Barriers identified Physical Functioning/Mobility Assistive Device: walker, wire harness assembler/caregiver through [facility], [employer] Advance Directives Advance Directives: Do you have an Advance Directive: Y 09/17/23 10:59 AD On File at [facility]: Y 09/17/23 10:59 Date Asked 12/09/23 12/09/23 22:06 AD Date Reviewed 12/09/23 12/09/23 20:57 COLST On File at [facility] Yes 09/17/23 10:59 COLST Date Scanned 08/31/21 09/17/23 10:59 Code Status Resuscitation Status DNR/DNI Portal Pt does not currently have a portal and education provided: Yes Insurance Coverage/Financial Issues Insurance: Medicare Medicare Supplement Medicaid ACO Member: Yes Care Team Visit Care Team Role Provider Type Elizabeth Hathaway NP Primary Care Provider NURSE PRACTITIONER Jesús Ochoa MD Emergency Provider [facility] STAFF PHYSICIAN Brent Carr Admit Provider NON-[facility] STAFF PHYSICIAN Attending Provider Discharge Potential Discharge Needs: PT Evaluation Patient/Family Education Needs: Review discharge instructions, discuss Ask Me Three Plan: Anticipate Maegan will discharge home with resumption of community supports and New [facility] services, if needed when medically ready. She will follow up with community providers and her discharge plan of care as instructed. She will be driven by family. CM will support discharge considerations and evaluations for further needs. PFSH All Active Problems (Updated 12/10/23 @ 02:12 by ANGEL DELEON) Terminal ileitis (Acute) Colitis (Acute) Hypocalcemia (Acute) Hypokalemia (Acute) Acute blood loss anemia (Acute) Chronic atrial fibrillation (Chronic) Heart failure with reduced ejection fraction (Chronic) Aspiration into airway (Acute) Pleural effusion, right (Acute) Pancytopenia (Acute) Cirrhosis (Acute) Thrombocytopenia (Chronic) Urinary incontinence (Acute) Inflammatory bowel disease (Chronic) [facility] [place] Metatarsalgia of left foot (Acute) Corns and callosities (Acute) Nail dystrophy (Acute) Vascular dementia (Chronic) Delusions (Acute) Alzheimer's dementia with agitation (Acute) Palliative care patient (Acute) Dementia (Chronic) Essential hypertension (Chronic) Onychomycosis (Acute ~06/2021) Iron deficiency anemia (Acute) Managed by [facility]. 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 Brent Castaneda, OD Astigmatism of both eyes [facility] report dated 04/17/18. Brent Castaneda, OD Grade 1 hypertensive retinopathy Meibomian gland dysfunction (MGD) [facility] exam dated 04/17/18. Brent Castaneda OD Neck pain (09/04/17) Fatigue (09/04/17) Exacerbation of Crohn's disease Microcytic anemia Nonspecific ST-T wave electrocardiographic changes Dehydration Hypomagnesemia Asthma exacerbation Acute bronchitis Influenza A Surgical History [place]oscopy (04/07/18[place] [facility] [place], Laproscopic Hiatal Hernia repair (09/11/17) Repair of umbilical hernia (09/11/17) Social History Smoking/Tobacco Use Status: Never Smoking risk assessment performed?: Yes Alcohol Intake: never Drug use: Never Substance use type: does not use Household members: children Housing: house Number of Children: 3 Current gender identity: female What is your relationship status?: Panel score (0-1 are the most socially isolated patients): 0 What type of physical activity do you participate in: none Seatbelt use: always Water heater temp set <120 deg: Yes Working smoke detector in home: Yes Fire extinguisher in home: Yes Carbon monox detector in home: Yes Firearms in home: No Do you feel safe at home: Yes Do you feel safe in your relationship?: Yes History History Para 3 Hx # Term Pregnancies Multiple births Hx # Pregnancies Ectopic pregnancies AB induced Hx Number of Living Children AB spontaneous SDOH(Care Management) Screening Will the Patient Participate in the Screening?: Yes Do you worry about having a steady place to live?: yes Problems where you live: no known problems In the past 12 months, have you had to go without electric, gas, oil or water in your home?: no Have you or anyone in your house had to go without enough food to eat?: no Has lack of transportation kept you from medical appointments or from doing things needed for daily living?: no Has anyone in your support network made you feel unsafe for any reason?: no Health Related Social Needs Health related social needs: housing instability, housed, with risk of homelessness(Z59.811) Health related social needs details: pt states that family is involved with transportation needs
[2023-12-10 12:24] LABS: MCH 28.7 pg (27.0-33.0); MCV 92 fL (80-95); MPV 10.5 fL (8.0-11.0); Platelet Count 112 10^3/uL (130-400); RBC 3.14 10^6/uL (3.93-5.22); RDW-SD 60.6 fL; WBC 2.96 10^3/uL (4.4-10.8)
[2023-12-10 16:27] LABS: HCT 28.5 % (36.0-46.0); HGB 8.9 g/dL (11.2-15.7); MCH 29.3 pg (27.0-33.0); MCHC 31.2 % (32.0-36.0); MCV 94 fL (80-95); MPV 10.8 fL (8.0-11.0); Platelet Count 113 10^3/uL (130-400); RBC 3.04 10^6/uL (3.93-5.22); RDW 18.1 % (11.7-14.6); RDW-SD 61.5 fL
--- NOTE | 2023-12-10 17:08 | CHAPLAIN ---
Maegan was resting in bed when I visited. She told me that her daughter in law has been into visit. She is supported by her daughter in law and sons, according to care management notes. One of her sons is currently a patient at [facility], so Maegan said her family is headed in both directions. Maegan is a member of the [employer] and she said the episcopalian know's she is here.
[2023-12-10] MEDS: Mirtazapine 15 MG TAB 7.5 MG PO (19:32)
[2023-12-10] MEDS: QUEtiapine 25 MG TAB PO (19:32)
[2023-12-10] MEDS: Atorvastatin 20 MG TAB PO (19:36)
[2023-12-11] VITALS (9 sets, daily range): BP systolic 98–128; BP diastolic 54–89; PULSE 79–99; RESP 16–17; TEMP 36–37.7; O2SAT 96–98
[2023-12-11] MEDS: Lactated Ringers 1,000 ML 100 ML IV (02:33)
[2023-12-11] MEDS: Metoprolol 12.5 MG TAB PO ×3 (04:15→20:52)
[2023-12-11] MEDS: Midodrine 2.5 MG TAB 5 MG PO ×3 (05:10→17:04)
[2023-12-11] MEDS: Levothyroxine 50 MCG TAB PO (05:10)
[2023-12-11 06:21] LABS: HGB 8.3 g/dL (11.2-15.7); MCH 28.6 pg (27.0-33.0); MCHC 30.7 % (32.0-36.0); MCV 93 fL (80-95); MPV 10.5 fL (8.0-11.0); Platelet Count 107 10^3/uL (130-400); RDW-SD 60.7 fL
[2023-12-11 06:33] LABS: Anion Gap 6.1 mmol/L (3-11); BUN 8 mg/dL (7-18); CO2 23.9 mmol/L (21.0-32.0); CREATININE 0.8 mg/dL (0.55-1.02); Chloride 110 mmol/L (98-107); Estimated GFR 72.61 (mL/min/1.73m2); Glucose 82 mg/dL (74-106); Potassium 3.8 mmol/L (3.5-5.1); Sodium 140 mmol/L (136-145)
[2023-12-11] MEDS: dilTIAZem 30 MG TAB PO ×2 (08:17→14:00)
[2023-12-11] MEDS: Empaglifozin 10 MG TAB PO (08:18)
[2023-12-11] MEDS: Loratidine 10 MG TAB PO (08:18)
[2023-12-11] MEDS: Pantoprazole 40 MG TABCR PO ×2 (08:18→15:53)
[2023-12-11] MEDS: QUEtiapine 25 MG TAB 12.5 MG PO (08:18)
[2023-12-11] MEDS: Nystatin CREAM 30 GM TUBE TP ×2 (08:19→21:02)
--- NOTE | 2023-12-11 11:41 | PDOC.CMPRO ---
Date of service: 12/11/23 Time of Service: 11:41 Care Management Progress Note Progress Note Text Progress Note Text: S/O:Maegan was sitting up in her chair when CM met with her. Her son, Gus, was in the room visiting. Maegan stated that she was able to eat solid food today for the first time this admission, and per provider, she will likely be ready for discharge once she can tolerate this advanced diet. She stated that her other son is at [facility] currently, for a similar reason. She stated that she is happy with her plan of care, and is hopeful that she will continue to improve. CM will continue to follow. A: Maegan is an 83 year old female admitted to [facility] on 12/10/23 acute blood loss anemia, chron's disease. Discharge Anticipated Barriers to Discharge: None Identified Patient/Family Education Needs: Review discharge instructions, discuss Ask Me Three Transportation: Private vehicle (family to transport) Plan: Anticipate Maeagn will discharge home with resumption of community supports and New [facility] services, if needed when medically ready. She will follow up with community providers and her discharge plan of care as instructed. She will be driven by family. CM will support discharge considerations and evaluations for further needs. SDOH(Care Management) Screening Will the Patient Participate in the Screening?: Yes Do you worry about having a steady place to live?: yes Problems where you live: no known problems In the past 12 months, have you had to go without electric, gas, oil or water in your home?: no Have you or anyone in your house had to go without enough food to eat?: no Has lack of transportation kept you from medical appointments or from doing things needed for daily living?: no Has anyone in your support network made you feel unsafe for any reason?: no Health Related Social Needs Health related social needs: housing instability, housed, with risk of homelessness(Z59.811) Health related social needs details: pt states that family is involved with transportation needs
--- NOTE | 2023-12-11 12:34 | PHACLINREV_ITS ---
Pharmacy Admission Review Admission Clinical Review Admission Pharmacy Review: Terminal ileitis (Acute) Colitis (Acute) Hypocalcemia (Acute) Hypokalemia (Acute) Acute blood loss anemia (Acute) acetaminophen Adverse Reaction (Intermediate, Verified 12/09/23 21:36) Headache ibuprofen Adverse Reaction (Intermediate, Verified 12/09/23 21:36) Headache lactose intolerant Adverse Reaction (Intermediate, Uncoded 12/09/23 21:36) cramps, diarrhea Resuscitation Status DNR/DNI Height 5 ft Weight 59.2 kg Pharmacy Admission Review Renal Dosing Renal Dosing: BUN 8 mg/dL (7-18) 12/11/23 05:56 Creatinine 0.8 mg/dL (0.55-1.02) 12/11/23 05:56 Medications needing adjustments: Reviewed (CrCl 33.7 mL/min) List of meds needing interventions: Current medications are okay Anticoagulation Anticoagulation: Hgb 8.3 g/dL (11.2-15.7) L 12/11/23 05:56 Hct 27.0 % (36.0-46.0) L 12/11/23 05:56 Plt Count 107 10^3/uL (130-400) L 12/11/23 05:56 INR 1.1 (0.9-1.1) 12/10/23 08:10 Creatinine 0.8 mg/dL (0.55-1.02) 12/11/23 05:56 DVT Prophylaxis: Reviewed (Acute blood loss anemia - home Eliquis on hold, has order for SCDs) Relevant Labs Relevant Labs: Sodium 140 mmol/L (136-145) 12/11/23 05:56 Potassium 3.8 mmol/L (3.5-5.1) 12/11/23 05:56 Chloride 110 mmol/L (98-107) H 12/11/23 05:56 Magnesium 1.9 mg/dL (1.8-2.4) 12/10/23 08:10 C-Reactive Protein < 0.50 mg/dL (<or=0.5) 12/10/23 02:43 Electrolytes, C-Reactive P, ESR: Reviewed (WBC decreased from 3.4 to 2.6, Hgb decreased from 8.9 to 8.3, PLT count decreased from 113 to 107, stool C. diff test pending) Cardiac Review Cardiac Review: Troponin I < 50 ng/L (< or =60) 12/09/23 21:34 BP, HR, EF%: Reviewed (HR/BP WNL, BP slightly low this morning at 100/54 and HR was slightly elevated at 99 this morning) QTc Review QTc: Reviewed (463 from 12/08) IV to PO Switch IV Medications: Reviewed Home Meds Home Med List reviewed: Intervened Relevent Home Meds Not ordered & why?: Eliquis (on hold due to acute blood loss anemia), B12 injection (monthly), gabapentin, Emgality (monthly) and Venofer (iron infusion) Reached out to provider regarding gabapentin (no order currently). Waiting to h ear back. Has patients own order for Urea gel - nursing was contacted yesterday to see if this could be brought in for the patient. Have not heard back yet. Will reach out again this afternoon. Current Meds Current Medication Order Review: Reviewed
--- NOTE | 2023-12-11 13:50 | W.PM.PROGNOT ---
Date of Service Date of service: 12/11/23 Time of Service: 09:35 Assessment and Plan Assessment and plan (1) Acute blood loss anemia: Start date: 12/10/23 Status: Acute Assessment and plan: She received 2 unites pRBC transfusion, hgb stabilized in 8 to 9 g/dL range. She chronically has anemia and does receive iron infusions as needed. Her outpatient physician will continue to follow-up for deficiencies with supplementation. [place] still [place] [facility] Surgery was consulted but may not need to perform endoscopies at this time unless patient becomes unstable. (2) Hypokalemia: Start date: 12/10/23 Status: Acute Assessment and plan: Mild hypokalemia possibly from GI loss with increased stooling, normalized with normal Mg. (3) Crohn's disease with complication: Status: Chronic Assessment and plan: Patient CRP is low and this may not be a flare of Crohn's disease. Continue outpatient therapy, but no steroids per GI. Stool evaluation for infectious etiologies with no change and treatment for now. Progress diet, I would like to see her tolerating a regular diet before resuming apixaban and considering discharge. Qualifiers: Gastrointestinal tract location: unspecified location Qualified Code(s): K50.919 - Crohn's disease, unspecified, with unspecified complications (4) Chronic atrial fibrillation: Status: Chronic Assessment and plan: On apixaban 2.5mg BID, holding now for GI bleed. Restart once patient is stable. I'd like to see a normal BM before restarting. Resume outpatient long acting rate control given stability. (5) Heart failure with reduced ejection fraction: Status: Chronic Assessment and plan: Patient does have a history of heart failure, but tolerated 2 units well. No signs CHF now. (6) Dementia: Status: Chronic Assessment and plan: Patient outpatient medical therapy will be continued. This appears to be mild and she has had no behavioral abnormalities thus far. Qualifiers: Dementia behavioral or psychological symptom: unspecified whether behavioral, psychotic, or mood disturbance or anxiety Dementia severity: unspecified severity Dementia type: unspecified type Qualified Code(s): F03.90 - Unspecified dementia, unspecified severity, without behavioral disturbance, psychotic disturbance, mood disturbance, and anxiety Subjective Subjective Patient reports: no new complaints, feels better and voiding w/o difficulty; denies vomiting, shortness of breath or fever Interval history since last seen: Abdominal pain is better. No BM since admission. Hasn't tried to eat real food yet. Exam Narrative Exam Narrative: General: Nontoxic, comfortable and interactive, sitting up in chair, alert and oriented x 3 HEENT: MMM, no icterus CV: RRR, no m/g/r RESP: nl effort, CTAB Abdomen: Soft, nondistended and nontender Ext: non tender, no edema Objective Last Vital Signs Temp 37.4 C 12/11/23 11:23 Pulse 88 12/11/23 11:23 Resp 16 12/11/23 11:23 BP 113/62 12/11/23 11:23 Pulse Ox 97 12/11/23 11:23 Laboratory Results - last 24 hr 12/10/23 12/11/23 16:06 05:56 WBC 3.40 L 2.60 L RBC 3.04 L 2.90 L Hgb 8.9 L 8.3 L Hct 28.5 L 27.0 L MCV 94 93 MCH 29.3 28.6 MCHC 31.2 L 30.7 L RDW 18.1 H 18.0 H Plt Count 113 L 107 L MPV 10.8 10.5 Sodium 140 Potassium 3.8 Chloride 110 H Carbon Dioxide 23.9 Anion Gap 6.1 BUN 8 Creatinine 0.8 Est GFR (CKD-EPI 2020) 72.61 Glucose 82 Calcium 8.0 L Time Spent with Patient Time Spent with Patient: 35-49 minutes Time was spent: preparing to see the patient(eg.review tests), obtaining and/or reviewing separately otained hiistory, ordering medications,tests, procedures, referring, communicating with other health director critical care, indepentently interpreting results, counseling the patient and care coordination
[2023-12-11] MEDS: QUEtiapine 25 MG TAB PO (20:52)
[2023-12-11] MEDS: Atorvastatin 20 MG TAB PO (20:52)
[2023-12-11] MEDS: dilTIAZem CD 120 MG CAPCR PO (20:54)
[2023-12-11] MEDS: Normal Saline Flush 10 ML SYR IVP (20:56)
[2023-12-11] MEDS: Docusate Sodium 100 MG CAP PO (21:00)
[2023-12-11] MEDS: Mirtazapine 15 MG TAB 7.5 MG PO (21:00)
[2023-12-12 02:49] VITALS: BP 102/58; PULSE 68; RESP 14; TEMP 36.4; O2SAT 96
[2023-12-12] MEDS: Midodrine 2.5 MG TAB 5 MG PO ×2 (05:08→12:10)
[2023-12-12] MEDS: Levothyroxine 50 MCG TAB PO (05:08)
[2023-12-12 07:02] LABS: HCT 27.8 % (36.0-46.0); HGB 8.7 g/dL (11.2-15.7)
[2023-12-12 08:33] VITALS: BP 101/54; PULSE 86; RESP 16; TEMP 37.1; O2SAT 96
--- NOTE | 2023-12-12 09:35 | PDOC.CMPRO ---
Date of service: 12/12/23 Time of Service: 09:35 Care Management Progress Note Progress Note Text Progress Note Text: S/O: A: Maegan is an 83 year old woman admitted on 12/10/23 with anemia and Crohn's disease Discharge Potential Discharge Needs: PT Evaluation and PCP F/U Appt Anticipated Barriers to Discharge: None Identified Patient/Family Education Needs: Review discharge instructions, discuss Ask Me Three and Other (medications, limitations, follow up plan) Transportation: Private vehicle Plan: Anticipate Maegan will be discharged home, possibly with new home health services, when medically stable. She will follow up with her community providers and plan of care and transport with family. CM will follow and continue to support discharge needs. SDOH(Care Management) Screening Will the Patient Participate in the Screening?: Yes Do you worry about having a steady place to live?: yes Problems where you live: no known problems In the past 12 months, have you had to go without electric, gas, oil or water in your home?: no Have you or anyone in your house had to go without enough food to eat?: no Has lack of transportation kept you from medical appointments or from doing things needed for daily living?: no Has anyone in your support network made you feel unsafe for any reason?: no Health Related Social Needs Health related social needs: housing instability, housed, with risk of homelessness(Z59.811) Health related social needs details: pt states that family is involved with transportation needs
[2023-12-12] MEDS: Loratidine 10 MG TAB PO (09:56)
[2023-12-12] MEDS: Empaglifozin 10 MG TAB PO (09:56)
[2023-12-12] MEDS: Metoprolol CR 50 MG TABCR PO (09:56)
[2023-12-12] MEDS: Pantoprazole 40 MG TABCR PO (09:56)
[2023-12-12] MEDS: QUEtiapine 25 MG TAB 12.5 MG PO (09:56)
[2023-12-12] MEDS: Nystatin CREAM 30 GM TUBE TP (09:56)
[2023-12-12 11:19] VITALS: BP 116/69; PULSE 80; RESP 15; TEMP 37.2; O2SAT 94
--- NOTE | 2023-12-12 12:09 | DSE_ITS ---
Date of service: 12/12/23 Time of Service: 12:09 DS: Diagnosis Discharge Diagnosis (1) Acute blood loss anemia: Status: Acute Asessment and Plan: acute on chronic (2) Hypokalemia: Status: Acute Asessment and Plan: resolved (3) Crohn's disease with complication: Status: Chronic (4) Chronic atrial fibrillation: Status: Chronic (5) Heart failure with reduced ejection fraction: Status: Chronic (6) Dementia: Status: Chronic Discharge Plan Disposition Patient Disposition: Home Condition: Fair Discharge Details Reason For Visit: Acute blood loss anemia, Crohn's disease Admit Date/Time: 12/10/23 00:36 Admit Provider: Brent Carr Attending Provider: Brent Carr Primary Care Provider: Elizabeth Hathaway Hospital Course Hospital Course: 83 yo F with history of Crohn's disease on balsalazide, atrial fibrillation on apixaban, dementia, and chronic iron/B12 deficiency anemia who presented nasusea and loose stools with abdominal tendernss and found to have an anemia down to hemoglobin 6.8. She never had reported bloody stool or melena, nor were these observed. She was given 4 factor prothrombin complex concentrate and 2 units of PRBC. Apixaban was held. High dose PPI was continued. CT abd/pelvis did show terminal iliitis. GI consulted and recommended stool for bacterial, c dif, and calprotectin, and recommended holding off on steroids unless stool studies were negative. However her pain improved and she did not have any GI bleeding and did not have a BM while admitted for 2 days. She was continued on belsalazide without steroids. She tolerated a regular diet before discharge. Given no bleeding was observed, resumption of apixaban was recommended at discharge. Of note, she was given a diagnosis of cirrhosis based on a suggesting ultrasound in July 2023. Her CT on this admission did not suggest cirrhosis, portal HTN, or splenomegaly. She does have other reasons for pancytopenia. Consider referral for liver elastography (fibroscan) to clarify this important point. hypocalcemia was mentioned but corrected calcium was normal. Low potassium was replaced as was stable. Home Meds and New Rx's Prescriptions: Continued mirtazapine 7.5 mg tablet 7.5 mg PO QHS Qty: 90 3RF Rx Instructions: For appetite, mood, and sleep. urea [ANIYAH-Urea] 45 % gel 1 applic topical BID Qty: 28 3RF Rx Instructions: Apply to the callus on the left twice daily quetiapine 25 mg tablet See Rx Instructions PO .COMPLEX Qty: 135 3RF Rx Instructions: 12.5mg am and 25mg HS orally; Emgality Pen 120 mg/mL pen injector 120 mg subcut QMONTH Qty: 3 3RF nystatin 100,000 unit/gram cream 1 applic topical QID Qty: 60 3RF loratadine 10 mg tablet 10 mg PO DAILY Qty: 30 0RF triamcinolone acetonide 0.1 % cream 1 applic topical BID PRN (Reason: R ear & hand dermatitis) Qty: 15 0RF Rx Instructions: Use thin layer to affected areas on hand and R ear up to 2x/d; avoid long- term use (DME) Size M incontinence briefs See Rx Instructions .Route .MEDSUPPLY Qty: 40 11RF Rx Instructions: As directed (typically 1 per day) for urinary incontinence apixaban 2.5 mg tablet 2.5 mg PO BID Qty: 180 3RF gabapentin 100 mg capsule 100 mg PO DAILY PRN (Reason: headaches) Qty: 30 3RF balsalazide 750 mg capsule See Rx Instructions PO TID Rx Instructions: 05/13/19 [facility] 1500 mg (2 caps) PO three times a day Venofer 200 mg iron/10 mL solution 300 mg IV [id number] Patient Comments: 08/29/21 q 3m per pt now Rx Instructions: 06/01/20[place] [facility] [facility] infusion to every 4 wks. if hgb below 7 will tranfuse. 05/13/19 [facility] [place] [facility] IVF every 6 weeks. 04/05/21 [facility] [place] [facility] Infuse if Hgb<7. 10/25/21 [facility] [place] [facility] - Q16 weeks (DME) BD Blunt Plastic Cannula 17 x 3 mL syringe 1 ea Miscellaneous monthly Qty: 3 12RF Rx Instructions: BD 3ml syringes 25Gx1 for B-12 injections cyanocobalamin (vitamin B-12) 1,000 mcg/mL solution 1,000 mcg IM monthly Qty: 3 3RF atorvastatin 20 mg tablet 20 mg PO DAILY Qty: 90 3RF pantoprazole 40 mg tablet,delayed release (DR/EC) 40 mg PO BID Qty: 180 3RF diltiazem HCl 120 mg capsule,extended release 24hr 120 mg PO QPM Qty: 90 3RF Jardiance 10 mg tablet See Rx Instructions .ROUTE .COMPLEX Qty: 90 0RF Dose Instruction: TAKE ONE TABLET BY MOUTH EVERY MORNING Rx Instructions: TAKE ONE TABLET BY MOUTH EVERY MORNING levothyroxine 50 mcg tablet 50 mcg PO DAILY Qty: 90 3RF midodrine 5 mg tablet 5 mg PO TID Qty: 90 0RF Rx Instructions: do not give last dose of day after 6PM or within 4 hrs of bedtime metoprolol succinate [Toprol XL] 50 mg tablet extended release 24 hr 50 mg PO DAILY Qty: 90 0RF Discharge Instructions Instructions: Crohn Disease (DC) Additional Instructions: You should resume your regular medication including the apixaban (Eliquis) Activity:: Activity as Tolerated Equipment/Supplies:: No Equipment Needed Diet:: As Tolerated Discharge Orders Discharge Orders: Discharge Order (Routine); Ordered 12/12/23 Ordered By: Jesús River DS: Summary Time Spent with Patient providing and/or coordinating discharge services: Greater than 30 minutes Status at Discharge Functional status at discharge: independent ambulation Overall status at discharge: patient is back to baseline Mental Status: mental status grossly normal Speech and Movement: speech and movement normal Mood: congruent mood Affect: normal affect Quality:SDOH Health Related Social Needs: Health related social needs risk of homeless Health related social needs details pt states that pippa rosario is involved with transportation needs Health related social needs details: pt states that family is involved with transportation needs Exam Narrative Exam Narrative: General: Nontoxic, comfortable and interactive, sitting up in chair, walking around the floor, alert and oriented x 3 HEENT: MMM, no icterus CV: RRR, no m/g/r RESP: nl effort, CTAB Abdomen: Soft, nondistended and nontender. normal bowel sounds Ext: non tender, no edema Psych Mental Status: mental status grossly normal Speech and Movement: speech and movement normal Mood: congruent mood Affect: normal affect DS: Data Vitals/I&O Vitals and I&O: Vital Signs Temperature 37.2 C 12/12/23 11:19 Temperature Source Tympanic 12/12/23 11:19 Pulse 80 12/12/23 11:19 Pulse Rhythm Regular 12/12/23 02:55 Pulse 74 12/10/23 01:50 Respiratory Rate 15 12/12/23 11:19 Respiratory Effort Normal, Non-Labored 12/12/23 02:55 Respiratory Depth Normal 12/12/23 02:55 Respiratory Pattern Normal 12/12/23 02:55 Blood Pressure 116/69 12/12/23 11:19 Blood Pressure Mean 73 12/10/23 01:40 Blood Pressure Position Sitting 12/09/23 21:20 Pulse Oximetry 94 12/12/23 11:19 Oxygen Delivery Method Room Air 12/12/23 11:19 Oxygen Flow Rate 0 12/12/23 11:19 Pain Level 0 12/12/23 11:19 Comment MAP 69 12/12/23 02:49 Intake & Output 12/11/23 12/12/23 12/12/23 23:59 11:59 23:59 Intake Total 250 / 2191.667 300 / 300 Output Total 1350 / 2000 950 / 950 Balance -1100 / 191.667 -650 / -650 Weight 63.2 kg Intake: Oral 250 / 250 300 / 300 Output: Urine 1350 / 2000 950 / 950 Other: Urine Color Yellow Yellow Urine Appearance Clear Clear Urine Odor Normal Comment bedside commode. Pt missed the hat in the toilet but did seem to void a good amount Voiding Methods Toilet Data Completed and Pending Labs on day of discharge: Labs from last 24 hours 12/12/23 06:20 Hgb 8.7 L Hct 27.8 L PFSH All Active Problems (Updated 12/12/23 @ 12:06 by Jesús River) Terminal ileitis (Acute) Colitis (Acute) Hypocalcemia (Acute) Hypokalemia (Acute) Acute blood loss anemia (Acute) Chronic atrial fibrillation (Chronic) Heart failure with reduced ejection fraction (Chronic) Aspiration into airway (Acute) Pleural effusion, right (Acute) Pancytopenia (Acute) Cirrhosis (Acute) Thrombocytopenia (Chronic) Urinary incontinence (Acute) Inflammatory bowel disease (Chronic) [facility] [place]17/23 Metatarsalgia of left foot (Acute) Corns and callosities (Acute) Nail dystrophy (Acute) Vascular dementia (Chronic) Delusions (Acute) Alzheimer's dementia with agitation (Acute) Palliative care patient (Acute) Dementia (Chronic) Essential hypertension (Chronic) Onychomycosis (Acute ~06/2021) Iron deficiency anemia (Acute) [place] [facility] [place] [facility] 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 Brent Castaneda, OD Astigmatism of both eyes [facility] report dated 04/17/18. Brent Castaneda, OD Grade 1 hypertensive retinopathy Meibomian gland dysfunction (MGD) [facility] exam dated 04/17/18. Brent Castaneda, OD Neck pain (09/04/17) Fatigue (09/04/17) Exacerbation of Crohn's disease Microcytic anemia Nonspecific ST-T wave electrocardiographic changes Dehydration Hypomagnesemia Asthma exacerbation Acute bronchitis Influenza A Surgical History H/O colonoscopy (04/07/18) [facility] [place], Laproscopic Hiatal Hernia repair (09/11/17) Repair of umbilical hernia (09/11/17) Social History Smoking/Tobacco Use Status: Never Smoking risk assessment performed?: Yes Alcohol Intake: never Drug use: Never Substance use type: does not use Household members: children Housing: house Number of Children: 3 Current gender identity: female What is your relationship status?: Panel score (0-1 are the most socially isolated patients): 0 What type of physical activity do you participate in: none Seatbelt use: always Water heater temp set <120 deg: Yes Working smoke detector in home: Yes Fire extinguisher in home: Yes Carbon monox detector in home: Yes Firearms in home: No Do you feel safe at home: Yes Do you feel safe in your relationship?: Yes History History Para 3 Hx # Term Pregnancies Multiple births Hx # Pregnancies Ectopic pregnancies AB induced Hx Number of Living Children AB spontaneous Time Spent with Patient Time Spent with Patient: <45 minutes Time was spent: preparing to see the patient(eg.review tests), obtaining and/or reviewing separately otained hiistory, ordering medications,tests, procedures, referring, communicating with other health care worker, indepentently interpreting results, counseling the patient and care coordination
--- NOTE | 2023-12-12 13:24 | CMDISCH_ITS ---
Date of service: 12/12/23 Time of Service: 13:24 LACE Index Scoring Tool Questions: Length of Stay (in days): 2 Was the patient admitted via the E.D.?: Yes Comorbidities: Congestive Heart Failure, Dementia and Liver or Renal Disease E.D. Visits: 3 Answers: Total Score: 13 Risk of Readmission: High Risk Care Management Discharge Plan Reason for Hospitalization: anemia Discharge Plan: Maegan will be discharged home with no new services. Her homemaker support through [facility] will resume. Maegan will transport with her [id number] Sushila and follow up with community providers. Patient/Family Education Needs: Review discharge instructions, activity, limitations, follow up plan, discuss Ask Me Three Plan: SDOH Health Related Social Needs: Health related social needs risk of homeless Health related social needs details pt states that pippa rosario is involved with transportation needs Health related social needs: housing instability, housed, with risk of homelessness(Z59.811) Health related social needs details: pt states that family is involved with transportation needs
--- NOTE | 2023-12-12 14:16 | NUR.NOTE ---
Nursing Note: Pt DC home with family via private vehicle. Escorted by this nurse to main entrance via WC, has all personal belongings and has no further questions regarding DC or Follow up appts.
== END 2023-12-12 14:06 | disposition home or self-care (01) | DRG 812 ==
LOC: ER 12-10 00:55 → MS 12-10 02:12
PROVIDERS: Family Medicine; Admitting Provider Family Medicine; Emergency Provider Emergency Medicine; PCP Nurse Practitioner Adult Health; Visit Provider Family Medicine
DX: D62 Acute posthemorrhagic anemia (principal); I50.20 Unspecified systolic (congestive) heart failure; I48.20 Chronic atrial fibrillation, unspecified; F02.811 Dementia in other diseases classified elsewhere, unspecified severity, with agitation; I67.850 Cerebral autosomal dominant arteriopathy with subcortical infarcts and leukoencephalopathy; K50.00 Crohn's disease of small intestine without complications; E87.6 Hypokalemia; Z79.01 Long term (current) use of anticoagulants; Z66 Do not resuscitate; D69.6 Thrombocytopenia, unspecified; G30.9 Alzheimer's disease, unspecified; F01.50 Vascular dementia, unspecified severity, without behavioral disturbance, psychotic disturbance, mood disturbance, and anxiety; I11.0 Hypertensive heart disease with heart failure; H90.3 Sensorineural hearing loss, bilateral; M81.0 Age-related osteoporosis without current pathological fracture; E53.8 Deficiency of other specified B group vitamins; G43.909 Migraine, unspecified, not intractable, without status migrainosus; E03.9 Hypothyroidism, unspecified; F32.A Depression, unspecified; F41.9 Anxiety disorder, unspecified; Z86.718 Personal history of other venous thrombosis and embolism; N32.81 Overactive bladder; M21.372 Foot drop, left foot; D61.818 Other pancytopenia; E83.51 Hypocalcemia
CPT/HCPCS: 00123; 36415; 36430; 80048; 80053; 85027; 86850; 86900; 86901; 86920; 87046; 87637; 93005; 96361; 96374; 96375; 99222; 99291; 74177; 83735; 84443; 84484; 85014; 85018; 85025; 85610; 86140; 93010; 99223; 99232; 99238; J2405; J2470; J3490; J7168; P9016

== ENCOUNTER 2024-01-07 14:15 | Outpatient (REF) | payer MEDICARE, OTHER, MEDICAID, SELFPAY ==
[2024-01-07 15:39] LABS: HCT 21.2 % (36.0-46.0); MCH 27.4 pg (27.0-33.0); MCV 92 fL (80-95); MPV 12.3 fL (8.0-11.0); Platelet Count 171 10^3/uL (130-400); RDW-SD 57.2 fL; WBC 4.87 10^3/uL (4.4-10.8)
[2024-01-07 16:11] LABS: HGB 6.3 g/dL (11.2-15.7); MCHC 29.7 % (32.0-36.0); RDW 16.9 % (11.7-14.6)
== END 2024-01-07 14:16 | disposition home or self-care (01) ==
LOC: LBN 14:15
PROVIDERS: PCP Nurse Practitioner Adult Health; Visit Provider Nurse Practitioner Adult Health
DX: D62 Acute posthemorrhagic anemia (principal)
CPT/HCPCS: 85027

== ENCOUNTER 2024-01-07 18:17 | Observation (INO) | payer MEDICARE, OTHER, MEDICAID, SELFPAY ==
[2024-01-07] VITALS (65 sets, daily range): BP systolic 90–149; BP diastolic 40–122; PULSE 67–104; RESP 11–23; TEMP 36.4–36.8; O2SAT 93–100
--- NOTE | 2024-01-07 18:40 | ED.GENADUL_ITS ---
Discharge Plan Disposition Patient Disposition: Admit to [facility] Condition: Stable Discharge Details Primary Care Provider: Elizabeth Hathaway ED Provider: Ny Goodman Home Meds and New Rx's Prescriptions: No Action urea [ANIYAH-Urea] 45 % gel 1 applic topical BID Qty: 28 3RF Rx Instructions: Apply to the callus on the left twice daily quetiapine 25 mg tablet See Rx Instructions PO .COMPLEX Qty: 135 3RF Rx Instructions: 12.5mg am and 25mg HS orally; Emgality Pen 120 mg/mL pen injector 120 mg subcut QMONTH Qty: 3 3RF nystatin 100,000 unit/gram cream 1 applic topical QID Qty: 60 3RF loratadine 10 mg tablet 10 mg PO DAILY Qty: 30 0RF triamcinolone acetonide 0.1 % cream 1 applic topical BID PRN (Reason: R ear & hand dermatitis) Qty: 15 0RF Rx Instructions: Use thin layer to affected areas on hand and R ear up to 2x/d; avoid long- term use (DME) Size M incontinence briefs See Rx Instructions .Route .MEDSUPPLY Qty: 40 11RF Rx Instructions: As directed (typically 1 per day) for urinary incontinence apixaban 2.5 mg tablet 2.5 mg PO BID Qty: 180 3RF gabapentin 100 mg capsule 100 mg PO DAILY PRN (Reason: headaches) Qty: 30 3RF balsalazide 750 mg capsule See Rx Instructions PO TID Rx Instructions: 05/13/19 [facility] 1500 mg (2 caps) PO three times a day Venofer 200 mg iron/10 mL solution 300 mg IV [id number] Patient Comments: 08/29/21 q 3m per pt now Rx Instructions: 06/01/20- [facility] G[facility]-change infusion to every 4 wks. if hgb below 7 will tranfuse. 05/13/19 [facility] Gastro IVF every 6 weeks. mk 04/05/21 [facility] Infuse if Hgb<7. 10/25/21 [facility] G[facility] - Q16 weeks (DME) BD Blunt Plastic Cannula 17 x 3 mL syringe 1 ea Miscellaneous monthly Qty: 3 12RF Rx Instructions: BD 3ml syringes 25Gx1 for B-12 injections cyanocobalamin (vitamin B-12) 1,000 mcg/mL solution 1,000 mcg IM monthly Qty: 3 3RF atorvastatin 20 mg tablet 20 mg PO DAILY Qty: 90 3RF pantoprazole 40 mg tablet,delayed release (DR/EC) 40 mg PO BID Qty: 180 3RF diltiazem HCl 120 mg capsule,extended release 24hr 120 mg PO QPM Qty: 90 3RF Jardiance 10 mg tablet See Rx Instructions .ROUTE .COMPLEX Qty: 90 0RF Dose Instruction: TAKE ONE TABLET BY MOUTH EVERY MORNING Rx Instructions: TAKE ONE TABLET BY MOUTH EVERY MORNING levothyroxine 50 mcg tablet 50 mcg PO DAILY Qty: 90 3RF mirtazapine 7.5 mg tablet See Rx Instructions .ROUTE .COMPLEX Qty: 90 3RF Dose Instruction: TAKE ONE TABLET BY MOUTH AT BEDTIME FOR APPETITE, MOOD AND SLEEP Rx Instructions: TAKE ONE TABLET BY MOUTH AT BEDTIME FOR APPETITE, MOOD AND SLEEP midodrine 5 mg tablet See Rx Instructions .ROUTE .COMPLEX Qty: 90 0RF Dose Instruction: TAKE ONE TABLET BY MOUTH THREE TIMES A DAY +DO NOT GIVE LAST DOSE OF DAY AFTER 6PM OR WITHIN 4 HOURS OF BEDTIME+ Rx Instructions: TAKE ONE TABLET BY MOUTH THREE TIMES A DAY +DO NOT GIVE LAST DOSE OF DAY AFTER 6PM OR WITHIN 4 HOURS OF BEDTIME+ metoprolol succinate [Toprol XL] 50 mg tablet extended release 24 hr 50 mg PO DAILY Qty: 90 3RF HPI General Mode of arrival: ambulatory . Date/Time Provider Initiated Documentation: 01/07/24 18:23 . Limitations to Documentation: no limitations . Information obtained by: patient, family, RN notes reviewed and old records reviewed . HPI Narrative: 83-year-old female with a past medical history of acute on chronic heart failure , A-fib with RVR, DVT, intermittent asthma, Crohn's disease iron deficiency anemia which she receives IV infusions every 3 months for presents to the ER from her PCP office with falling hemoglobin hematocrit. She did have hemoglobin hematocrit prior to arrival of 6 and 21, she was recently admitted approximately 3 weeks ago had blood transfusion. She reports that she has had black stools intermittently over the last couple of days. She denies any abdominal pain denies any chest pain she does report some lightheadedness upon standing. She is alert and oriented and at baseline upon arrival. She is DNR/DNI. Related Data Home Medications Medication Instructions Recorded Confirmed balsalazide 750 mg capsule See Rx Instructions PO TID 05/14/19 01/07/24 iron sucrose 200 mg iron/10 mL 300 mg IV [id number] 10/26/21 01/07/24 intravenous solution (Venofer) syringe with cannula,disposabl 17 #3 SYRGS 10/22/22 12/10/23 x 3 mL (BD Blunt Plastic Cannula) urea 45 % topical gel (ANIYAH-Urea) 1 applic topical BID #28 mL 03/07/23 01/07/24 cyanocobalamin (vitamin B-12) 1,000 mcg IM monthly #3 vials 06/19/23 01/07/24 1,000 mcg/mL injection solution quetiapine 25 mg tablet See Rx Instructions PO .COMPLEX 06/27/23 01/07/24 #135 tabs Size M incontinence briefs #40 ea 07/25/23 12/10/23 galcanezumab-gnlm 120 mg/mL 120 mg subcut QMONTH #3 mL 07/25/23 01/07/24 subcutaneous pen injector (Emgality Pen) triamcinolone acetonide 0.1 % 1 applic topical BID PRN R ear & 07/25/23 01/07/24 topical cream hand dermatitis #15 grams apixaban 2.5 mg tablet 2.5 mg PO BID #180 tabs 08/22/23 01/07/24 atorvastatin 20 mg tablet 20 mg PO DAILY #90 tabs 09/11/23 01/07/24 diltiazem HCl 120 mg 120 mg PO QPM #90 caps 09/11/23 01/07/24 capsule,extended release 24 hr pantoprazole 40 mg tablet,delayed 40 mg PO BID #180 tabs 09/11/23 01/07/24 release gabapentin 100 mg capsule 100 mg PO DAILY PRN headaches #30 09/19/23 01/07/24 caps empagliflozin 10 mg tablet See Rx Instructions .Route 11/04/23 01/07/24 (Jardiance) .COMPLEX #90 tabs loratadine 10 mg tablet 10 mg PO DAILY #30 tabs 11/12/23 01/07/24 nystatin 100,000 unit/gram topical 1 applic topical QID groin folds 11/12/23 01/07/24 cream rash #60 grams levothyroxine 50 mcg tablet 50 mcg PO DAILY #90 tabs 11/13/23 01/07/24 midodrine 5 mg tablet See Rx Instructions .Route 01/01/24 01/07/24 .COMPLEX #90 tabs mirtazapine 7.5 mg tablet See Rx Instructions .Route 01/01/24 01/07/24 .COMPLEX #90 tabs metoprolol succinate 50 mg 50 mg PO DAILY #90 tabs 01/06/24 01/07/24 tablet,extended release 24 hr (Toprol XL) Previous Rx's Medication Instructions Recorded syringe with cannula,disposabl 17 #3 SYRGS 10/22/22 x 3 mL (BD Blunt Plastic Cannula) urea 45 % topical gel (ANIYAH-Urea) 1 applic topical BID #28 mL 03/07/23 cyanocobalamin (vitamin B-12) 1,000 mcg IM monthly #3 vials 06/19/23 1,000 mcg/mL injection solution quetiapine 25 mg tablet See Rx Instructions PO .COMPLEX 06/27/23 #135 tabs Size M incontinence briefs #40 ea 07/25/23 galcanezumab-gnlm 120 mg/mL 120 mg subcut QMONTH #3 mL 07/25/23 subcutaneous pen injector (Emgality Pen) triamcinolone acetonide 0.1 % 1 applic topical BID PRN R ear & 07/25/23 topical cream hand dermatitis #15 grams apixaban 2.5 mg tablet 2.5 mg PO BID #180 tabs 08/22/23 atorvastatin 20 mg tablet 20 mg PO DAILY #90 tabs 09/11/23 diltiazem HCl 120 mg 120 mg PO QPM #90 caps 09/11/23 capsule,extended release 24 hr pantoprazole 40 mg tablet,delayed 40 mg PO BID #180 tabs 09/11/23 release gabapentin 100 mg capsule 100 mg PO DAILY PRN headaches #30 09/19/23 caps empagliflozin 10 mg tablet See Rx Instructions .Route 11/04/23 (Jardiance) .COMPLEX #90 tabs loratadine 10 mg tablet 10 mg PO DAILY #30 tabs 11/12/23 nystatin 100,000 unit/gram topical 1 applic topical QID groin folds 11/12/23 cream rash #60 grams levothyroxine 50 mcg tablet 50 mcg PO DAILY #90 tabs 11/13/23 midodrine 5 mg tablet See Rx Instructions .Route 01/01/24 .COMPLEX #90 tabs mirtazapine 7.5 mg tablet See Rx Instructions .Route 01/01/24 .COMPLEX #90 tabs metoprolol succinate 50 mg 50 mg PO DAILY #90 tabs 01/06/24 tablet,extended release 24 hr (Toprol XL) Allergies Allergy/AdvReac Type Severity Reaction Status Date / Time acetaminophen AdvReac Intermediate Headache Verified 01/07/24 18:26 ibuprofen AdvReac Intermediate Headache Verified 01/07/24 18:26 lactose intolerant AdvReac Intermediate cramps, Uncoded 01/07/24 18:26 diarrhea General Stated Complaint: GenMedical ADALGISA: 2 Review of Systems All systems reviewed & are unremarkable except as noted in HPI and below ENT Ears, Nose, Mouth, and Throat: Reports dizziness Cardiovascular Cardiovascular: Denies chest pain, Denies syncope and Reports lightheadedness Gastrointestinal Gastrointestinal: Reports as per HPI, Denies abdominal pain, Reports melena, Denies hematochezia, Reports change in stool character, Denies constipation, Reports dyspepsia, Denies diarrhea, Reports nausea, Denies vomiting and Denies hematemesis Musculoskeletal Musculoskeletal: Denies abnormal gait Neurologic Neurologic: Denies abnormal speech, Denies abnormal gait, Reports dizziness and Denies syncope Hematologic/Lymphatic Hematologic/Lymphatic: Reports as per HPI, Reports easy bleeding and Reports easy bruising Exam Narrative Exam Narrative: Constitutional: Alert and oriented x3. Appears stated age. Normal body habitus. Head: Normocephalic, no trauma. Eyes: Pupils PERRL, Red reflex noted, EOM's intact. Eyelids symmetrical without lesions, discharge, or swelling. ENT: Bilateral TM's WNL, External ear normal to inspection, no mastoid TTP, swelling, or erythema, Nasal turbinates WNL, no nasal discharge. Normal dentition, Posterior pharynx WNL, no exudate. Chest: RRR, Normal S1, S2, distal pulses intact. Resp: Lungs clear to auscultation bilaterally, no wheezes, rales, or rhonchi. Abdomen: Soft, non-distended, no masses no guarding, guaiac positive stool, dark tarry stool. No gross blood or mucus noted. Musculoskeletal: Normal gait, Moves all 4 extremities without difficulty. Skin: Slightly pale, no suspicious rashes or lesions. Capillary refill less than 2 sec. Neurologic: Cranial nerves II-XII intact. Alert and oriented x 3. Motor: No deficits noted. She does have PUNEET hose in place bilaterally lower extremities with bilateral edema which appears chronic, nonpitting Hematologic/Lymphatic: No ecchymosis, no lymphadenopathy. Course Vital Signs Vital signs: Vital Signs Temperature 36.4 C L 01/07/24 18:21 Pulse 98 H 01/07/24 18:21 Respiratory Rate 12 01/07/24 18:21 Blood Pressure 128/65 01/07/24 18:21 Pulse Oximetry 96 01/07/24 18:21 Temperature 36.4 C L 01/07/24 18:21 Temperature Source Temporal Artery Scan 01/07/24 18:21 Pulse 98 H 01/07/24 18:21 Respiratory Rate 12 01/07/24 18:21 Blood Pressure 128/65 01/07/24 18:21 Blood Pressure Position Sitting 01/07/24 18:21 Pulse Oximetry 96 01/07/24 18:21 Oxygen Delivery Method Room Air 01/07/24 18:21 Oxygen Flow Rate 0 01/07/24 18:21 Pain Level 0 01/07/24 18:21 Medical Decision Making 83-year-old female with a past medical history of acute on chronic heart failure, A-fib with RVR, DVT, intermittent asthma, Crohn's disease iron deficiency anemia which she receives IV infusions every 3 months for presents to the ER from her PCP office with falling hemoglobin hematocrit. She did have hemoglobin hematocrit prior to arrival of and 21, she was recently admitted approximately 3 weeks ago had blood transfusion. She reports that she has had black stools intermittently over the last couple of days. She denies any abdominal pain denies any chest pain she does report some lightheadedness upon standing. She is alert and oriented and at baseline upon arrival. She is DNR/DNI. Workup ordered including CBC CMP, PT INR, iron with TIBC ferritin type and screen and 2 units of PRBCs. Patient reports some nausea after eating which has been new. She denies any vomiting. Patient is guaiac positive on digital rectal exam, she does have black tarry stool stools. She is receiving first unit PRBCs at this time. I did discuss with her whether or not she is having iron infusions which she states she has had an iron infusion sometime this year. At this time hemoglobin 6.3 hematocrit 21.7, MCHC 29.0 RDW 16.9 MPV is 11.2, PT 12.1 INR is 1.2, BUN 21 creatinine 1.0 iron is 18 transferrin is 6% albumin is 2.9. Will consult with hospitalist for admission for iron deficency anemia, Crohns with GI bleeding. 2116: Spoke with Dr. Wang who recommends GI consult. 2121: GI at [facility] paged. BP is now 94/45, remains non-tachycardic awake and at baseline, breathing eupneic. 2139: Spoke with Dr. Gonsalez [facility] GI consulted, who does not recommend imaging at this time, she does not recommend emergent need for scoping her at this tiem, but agree to be available for consult if there is any changes to re-evaluate her plan. She also does not recommend holding her apixaban at this time. Will re- page Dr. Wang. 2242: Spoke again with Dr. Wang regarding patient, he is recommending re- eval after blood transfusion. BP has improved at this time to 103/64, she is receiving her 2nd unit at this time. 2299: Spoke with Dr. Wang hospitalist who agrees to accept patient for observation admission will inform patient on plan of care. She agrees to admission at this time. Awaiting bed placement at this time. This text was generated using Amind dictation system, please disregard any oddities of phrase or misspellings. Medical Records Medical records reviewed: Yes I reviewed the patient's medical records. Medical records narrative: She was DC'd from this facility on 12/12/2023 after receiving factor for prothrombin complex concentrate and 2 units of PRBCs and having her apixaban held. She did have stool studies at that time. Lab Data Lab results reviewed: Yes I reviewed the patient's lab results. Labs: Laboratory Tests Range/Units 01/07/24 18:42 WBC (4.4-10.8) 10^3/uL 4.85 RBC (3.93-5.22) 10^6/uL 2.33 L Hgb (11.2-15.7) g/dL 6.3 L* Hct (36.0-46.0) % 21.7 L MCV (80-95) fL 93 MCH (27.0-33.0) pg 27.0 MCHC (32.0-36.0) % 29.0 L RDW (11.7-14.6) % 16.9 H Plt Count (130-400) 10^3/uL 170 MPV (8.0-11.0) fL 11.2 H Immature Gran % % 0.4 Neutrophils % % 71.0 Lymphocytes % % 17.3 Monocytes % % 9.1 Eosinophils % % 1.2 Basophils % % 1.0 Nucleated RBC % (0.0-0.3) % 0.0 Absolute Neutrophils (1.2-6.7) 10^3/uL 3.44 Absolute Lymphocytes (1.2-3.4) 10^3/uL 0.84 L Absolute Monocytes (0.1-0.8) 10^3/uL 0.44 Absolute Eosinophils (0.0-0.7) 10^3/uL 0.06 Absolute Basophils (0.0-0.2) 10^3/uL 0.05 RBC Morphology See Below Polychromasia Present Hypochromasia 1+ Anisocytosis 1+ PT (9.1-11.1) sec 12.1 H INR (0.9-1.1) 1.2 H Sodium (136-145) mmol/L 139 Potassium (3.5-5.1) mmol/L 3.7 Chloride (98-107) mmol/L 107 Carbon Dioxide (21.0-32.0) mmol/L 21.6 Anion Gap (3-11) mmol/L 10.4 BUN (7-18) mg/dL 21 H Creatinine (0.55-1.02) mg/dL 1.0 Est GFR (CKD-EPI 2020) (mL/min/1.73m2) 55.55 Glucose (74-106) mg/dL 137 H Calcium (8.5-10.1) mg/dL 8.2 L Magnesium (1.8-2.4) mg/dL 1.9 Iron (50-170) ug/dL 18 L TIBC (250-450) ug/dL 294 Transferrin % Sat (15-50) % 6 L Ferritin (8-252) ng/mL 48 Total Bilirubin (0.2-1.0) mg/dL 0.5 AST (15-37) U/L 26 ALT (14-59) U/L 20 Alkaline Phosphatase (46-116) U/L 89 Total Protein (6.4-8.2) g/dL 6.2 L Albumin (3.4-5.0) g/dL 2.9 L ABO/Rh A Positive Antibody Screen NEGATIVE Crossmatch See Detail Quality:SDOH Health Related Social Needs: Health related social needs risk of homeless Health related social needs details pt states that pippa rosario is involved with transportation needs PFSH All Active Problems (Updated 01/07/24 @ 23:45 by Ny Goodman NP) Crohn's disease (Chronic) Terminal ileitis (Acute) Colitis (Acute) Acute blood loss anemia (Acute) Chronic atrial fibrillation (Chronic) Heart failure with reduced ejection fraction (Chronic) Aspiration into airway (Acute) Pleural effusion, right (Acute) Pancytopenia (Acute) Cirrhosis (Acute) Thrombocytopenia (Chronic) Urinary incontinence (Acute) Inflammatory bowel disease (Chronic) [facility] Note 04/17/23 Metatarsalgia of left foot (Acute) Corns and callosities (Acute) Nail dystrophy (Acute) Vascular dementia (Chronic) Delusions (Acute) Alzheimer's dementia with agitation (Acute) Palliative care patient (Acute) Dementia (Chronic) Essential hypertension (Chronic) Onychomycosis (Acute ~06/2021) Iron deficiency anemia (Acute) Managed by [facility] 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 Brent Castaneda, OD Astigmatism of both eyes [facility] report dated 04/17/18. Brent Castaneda, OD Grade 1 hypertensive retinopathy Meibomian gland dysfunction (MGD) [facility] exam dated 04/17/18. Brent Castaneda, OD Neck pain (09/04/17) Fatigue (09/04/17) Exacerbation of Crohn's disease Microcytic anemia Nonspecific ST-T wave electrocardiographic changes Dehydration Hypomagnesemia Asthma exacerbation Acute bronchitis Influenza A Surgical History H/O colonoscopy (04/07/18) [facility] Hysterectomy, Laproscopic Hiatal Hernia repair (09/11/17) Repair of umbilical hernia (09/11/17) Social History Smoking/Tobacco Use Status: Never Smoking risk assessment performed?: Yes Alcohol Intake: never Drug use: Never Substance use type: does not use Household members: children Housing: house Number of Children: 3 Current gender identity: female What is your relationship status?: Panel score (0-1 are the most socially isolated patients): 0 What type of physical activity do you participate in: none Seatbelt use: always Water heater temp set <120 deg: Yes Working smoke detector in home: Yes Fire extinguisher in home: Yes Carbon monox detector in home: Yes Firearms in home: No Do you feel safe at home: Yes Do you feel safe in your relationship?: Yes History History Para 3 Hx # Term Pregnancies Multiple births Hx # Pregnancies Ectopic pregnancies AB induced Hx Number of Living Children AB spontaneous
[2024-01-07 18:53] LABS: Abs Immature Grans 0.02 10^3/uL (0.0-0.06); Absolute Basophil Count 0.05 10^3/uL (0.0-0.2); Absolute Eosinophil Count 0.06 10^3/uL (0.0-0.7); Absolute Lymphocyte Count 0.84 10^3/uL (1.2-3.4); Absolute Monocyte Count 0.44 10^3/uL (0.1-0.8); Absolute Neutrophil Count 3.44 10^3/uL (1.2-6.7); Eosinophils % 1.2 %; HCT 21.7 % (36.0-46.0); Immature Grans % 0.4 %; Lymphocytes % 17.3 %; MCV 93 fL (80-95); MPV 11.2 fL (8.0-11.0); Monocytes % 9.1 %; Platelet Count 170 10^3/uL (130-400); RBC 2.33 10^6/uL (3.93-5.22); RDW 16.9 % (11.7-14.6); RDW-SD 56.3 fL; WBC 4.85 10^3/uL (4.4-10.8)
[2024-01-07] MEDS: Pantoprazole 40 MG VIAL 80 MG IVP (18:59)
[2024-01-07 19:03] LABS: INR 1.2 (0.9-1.1); Prothrombin Time 12.1 sec (9.1-11.1)
[2024-01-07 19:10] LABS: Diff Comment RBC Morph Reviewed; HGB 6.3 g/dL (11.2-15.7)
[2024-01-07 19:11] LABS: Anisocytosis 1+; Hypochromasia 1+; Polychromasia Present
[2024-01-07 19:14] LABS: Iron 18 ug/dL (50-170); Total Iron Binding Capacity 294 ug/dL (250-450); Transferrin Sat 6 % (15-50)
[2024-01-07 19:19] LABS: ALT 20 U/L (14-59); AST 26 U/L (15-37); Albumin 2.9 g/dL (3.4-5.0); Alkaline Phosphatase 89 U/L (46-116); Anion Gap 10.4 mmol/L (3-11); BUN 21 mg/dL (7-18); Bilirubin, Total 0.5 mg/dL (0.2-1.0); CO2 21.6 mmol/L (21.0-32.0); Calcium 8.2 mg/dL (8.5-10.1); Chloride 107 mmol/L (98-107); Estimated GFR 55.55 (mL/min/1.73m2); Ferritin 48 ng/mL (8-252); Glucose 137 mg/dL (74-106); Magnesium 1.9 mg/dL (1.8-2.4); Potassium 3.7 mmol/L (3.5-5.1); Sodium 139 mmol/L (136-145); Total Protein 6.2 g/dL (6.4-8.2)
[2024-01-07] MEDS: Normal Saline 500 ML IV (22:17)
--- NOTE | 2024-01-07 23:12 | W.PM.HP.N ---
Date of service: 01/07/24 Time of Service: 23:12 Assessment and Plan Assessment and plan (1) Acute blood loss anemia: Start date: 01/07/24 Status: Acute Assessment and plan: This is an 83-year-old lady with recurrent anemia drop in her hemoglobin below 7 g/dL. She is hemodynamically stable but is seeing black stools and is on apixaban chronically for chronic atrial fibrillation. She will be transfused 2 units of packed red blood cells to treat her acute blood loss anemia with MCV elevated though she does have deficiency anemia iron infusion scheduled for GI. She has not physically seen GI recently and should be reevaluated for her Crohn's disease and now blood loss on Eliquis. She is unsure how long she has been on Eliquis but has had Crohn's disease for years. Patient will be discharged home if stable in the morning for outpatient follow-up as stated. He is on observation. She is a DNR/DNI. (2) Iron deficiency anemia: Status: Chronic Assessment and plan: Patient has a component of blood loss anemia and iron deficiency she has a normal MCV. She should be reevaluated for iron infusion with a low serum iron. For now blood transfusion for acute anemia and follow-up with GI and PCP. Continue iron supplement orally. Qualifiers: Iron deficiency anemia type: other iron deficiency Qualified Code(s): D50.8 - Other iron deficiency anemias (3) Crohn's disease with complication: Status: Chronic Assessment and plan: Not exacerbated but now with bleeding on apixaban. Hold apixaban until follow-up as an outpatient which should be within 1 day with PCP to discuss long-term treatment plans. Qualifiers: Gastrointestinal tract location: unspecified location Qualified Code(s): K50.919 - Crohn's disease, unspecified, with unspecified complications (4) Hypothyroidism: Status: Chronic Assessment and plan: Continue outpatient supplements. Qualifiers: Hypothyroidism type: acquired Qualified Code(s): E03.9 - Hypothyroidism, unspecified (5) Essential hypertension: Status: Chronic Assessment and plan: Stable medical regimen without change. She has not had hypotension or tachycardia with her acute anemia. (6) Alzheimer's dementia with agitation: Status: Chronic Assessment and plan: Stable left aggressive with patient to continue outpatient medical therapy. Qualifiers: Alzheimer's disease onset: other onset Dementia severity: moderate Qualified Code(s): G30.8 - Other Alzheimer's disease; F02.B11 - Dementia in other diseases classified elsewhere, moderate, with agitation History of Present Illness History of Present Illness Chief Complaint: Abnormal labs patient with hemoglobin below 7 g/dL Narrative: This is an 83-year-old lady with Crohn's disease seen at [facility] and does have also iron deficiency anemia on iron infusions but not recurrent transfusions. He does have chronic atrial fibrillation now on Eliquis and this is a second admission where she had a hemoglobin above 7 g/dL with GI bleeding. During her last hospitalization she had no bleeding and responded to units of packed red blood cells transfusion with apixaban held and then restarted before discharge. Apixaban was reversed during that hospital stay. She is on this for dysrhythmia and with now 2 admissions for what appears to be acute blood loss even though she is asymptomatic, continuation Eliquis should be questioned as worth the risk. She also should follow-up with [place] [facility] [place]evaluate her inflammatory bowel disease and possible progression now with blood loss anemia. Her PCP and cardiology can consider changing the apixaban treatment. Patient has been asymptomatic with her dropping hemoglobin but has noticed dark stools on iron supplement chronically. ED consultated with GI at [facility] and they had no immediate recommendations and did not recommend reimaging at this time. Patient was to receive transfusion in the ED and then return home since she was hemodynamically stable but because of her blood loss below 7 g/dL hemoglobin and the time it would take to give 2 units of packed red blood cells, was brought up to [facility] for observation. She is a DNR/DNI. Review of Systems Narrative: 13 point review of systems otherwise unrevealing or stable. Patient has noted black stools as per HPI but has had no dizziness, shortness of breath or peripheral edema. PFSH All Active Problems (Updated 01/08/24 @ 09:46 by Brent Carr) Crohn's disease (Chronic) Terminal ileitis (Acute) Colitis (Acute) Acute blood loss anemia (Acute) Chronic atrial fibrillation (Chronic) Heart failure with reduced ejection fraction (Chronic) Aspiration into airway (Acute) Pleural effusion, right (Acute) Pancytopenia (Acute) Cirrhosis (Acute) Thrombocytopenia (Chronic) Urinary incontinence (Acute) Inflammatory bowel disease (Chronic) [facility] [place] 04/17/23 Metatarsalgia of left foot (Acute) Corns and callosities (Acute) Nail dystrophy (Acute) Vascular dementia (Chronic) Delusions (Acute) Alzheimer's dementia with agitation (Chronic) Palliative care patient (Acute) Dementia (Chronic) Essential hypertension (Chronic) Onychomycosis (Acute ~06/2021) Iron deficiency anemia (Chronic) Managed by [facility]. 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 Brent Castaneda, OD Astigmatism of both eyes [facility] report dated 04/17/18. Brent Castaneda, OD Grade 1 hypertensive retinopathy Meibomian gland dysfunction (MGD) [facility] exam dated 04/17/18. Brent Castaneda, OD Neck pain (09/04/17) Fatigue (09/04/17) Exacerbation of Crohn's disease Microcytic anemia Nonspecific ST-T wave electrocardiographic changes Dehydration Hypomagnesemia Asthma exacerbation Acute bronchitis Influenza A Surgical History H/O colonoscopy (04/07/18) [facility] [place]sterectomy, Laproscopic Hiatal Hernia repair (09/11/17) Repair of umbilical hernia (09/11/17) Social History Smoking/Tobacco Use Status: Never Smoking risk assessment performed?: Yes Alcohol Intake: never Drug use: Never Substance use type: does not use Household members: children Housing: apartment Number of Children: 3 Current gender identity: female What is your relationship status?: Panel score (0-1 are the most socially isolated patients): 0 What type of physical activity do you participate in: none Seatbelt use: always Water heater temp set <120 deg: Yes Working smoke detector in home: Yes Fire extinguisher in home: Yes Carbon monox detector in home: Yes Firearms in home: No Do you feel safe at home: Yes Do you feel safe in your relationship?: Yes History History Para 3 Hx # Term Pregnancies Multiple births Hx # Pregnancies Ectopic pregnancies AB induced Hx Number of Living Children AB spontaneous Meds Allergies and Home Medications Allergies Allergy/AdvReac Type Severity Reaction Status Date / Time acetaminophen AdvReac Intermediate Headache Verified 01/07/24 18:26 ibuprofen AdvReac Intermediate Headache Verified 01/07/24 18:26 lactose intolerant AdvReac Intermediate cramps, Uncoded 01/07/24 18:26 diarrhea Home Medications Medication Instructions Recorded Confirmed Type balsalazide 750 mg capsule See Rx Instructions PO TID 05/14/19 01/07/24 History iron sucrose 200 mg iron/10 mL 300 mg IV [id number] 10/26/21 01/07/24 History intravenous solution (Venofer) syringe with cannula,disposabl 17 #3 SYRGS 10/22/22 12/10/23 Rx x 3 mL (BD Blunt Plastic Cannula) cyanocobalamin (vitamin B-12) 1,000 mcg IM monthly #3 vials 06/19/23 01/07/24 Rx 1,000 mcg/mL injection solution quetiapine 25 mg tablet See Rx Instructions PO .COMPLEX 06/27/23 01/07/24 Rx #135 tabs Size M incontinence briefs #40 ea 07/25/23 12/10/23 Rx galcanezumab-gnlm 120 mg/mL 120 mg subcut QMONTH #3 mL 07/25/23 01/07/24 Rx subcutaneous pen injector (Emgality Pen) triamcinolone acetonide 0.1 % 1 applic topical BID PRN R ear & 07/25/23 01/07/24 Rx topical cream hand dermatitis #15 grams apixaban 2.5 mg tablet 2.5 mg PO BID #180 tabs 08/22/23 01/07/24 Rx atorvastatin 20 mg tablet 20 mg PO DAILY #90 tabs 09/11/23 01/07/24 Rx diltiazem HCl 120 mg 120 mg PO QPM #90 caps 09/11/23 01/07/24 Rx capsule,extended release 24 hr pantoprazole 40 mg tablet,delayed 40 mg PO BID #180 tabs 09/11/23 01/07/24 Rx release gabapentin 100 mg capsule 100 mg PO DAILY PRN headaches #30 09/19/23 01/07/24 Rx caps empagliflozin 10 mg tablet See Rx Instructions .Route 11/04/23 01/07/24 Rx (Jardiance) .COMPLEX #90 tabs loratadine 10 mg tablet 10 mg PO DAILY #30 tabs 11/12/23 01/07/24 Rx nystatin 100,000 unit/gram topical 1 applic topical QID groin folds 11/12/23 01/07/24 Rx cream rash #60 grams levothyroxine 50 mcg tablet 50 mcg PO DAILY #90 tabs 11/13/23 01/07/24 Rx midodrine 5 mg tablet See Rx Instructions .Route 01/01/24 01/07/24 Rx .COMPLEX #90 tabs mirtazapine 7.5 mg tablet See Rx Instructions .Route 01/01/24 01/07/24 Rx .COMPLEX #90 tabs metoprolol succinate 50 mg 50 mg PO DAILY #90 tabs 01/06/24 01/07/24 Rx tablet,extended release 24 hr (Toprol XL) Exam Narrative Exam Narrative: General: Patient appears appropriate for age, alert and oriented to least person place, in no acute distress and comfortable lying flat in bed. HEENT: Normocephalic, eyes with pupils equal and reactive to light symmetrically, extraocular movement intact and sclera anicteric. Oropharynx with normal mucosa and fair dentition. Neck: Supple without JVD. Back: Kyphotic without CVA tenderness. Lungs: Fair aeration with no focalizing rales or rhonchi. No expiratory wheeze. Breast: Exam deferred. Heart: Irregularly irregular rhythm with normal rate. No appreciable murmur or gallop. Abdomen: Slightly obese contour with tenderness to palpation and guarding without rebound over the lower abdomen especially on the right. Soft to palpation. Bowel sounds are hyperactive in all quadrants. Genitalia/rectal: Exam deferred. Extremities: No clubbing, cyanosis and with nonpitting edema both lower extremities. Good capillary refill. Skin: Pale, warm and dry. Neuro: Cranial nerves II through XII gross intact, no focal motor deficits no tremor. Psych: Flattened affect with wandering conversation but mood appears normal. No abnormal thought processes. Remote memory intact with recent memory less intact. Results Labs 01/08/24 06:28 01/08/24 06:28 Labs: Laboratory Results - last 24 hr 01/07/24 18:42 WBC 4.85 RBC 2.33 L Hgb 6.3 L* Hct 21.7 L MCV 93 MCH 27.0 MCHC 29.0 L RDW 16.9 H Plt Count 170 MPV 11.2 H Immature Gran % 0.4 Neutrophils % 71.0 Lymphocytes % 17.3 Monocytes % 9.1 Eosinophils % 1.2 Basophils % 1.0 Nucleated RBC % 0.0 Absolute Neutrophils 3.44 Absolute Lymphocytes 0.84 L Absolute Monocytes 0.44 Absolute Eosinophils 0.06 Absolute Basophils 0.05 RBC Morphology See Below Polychromasia Present Hypochromasia 1+ Anisocytosis 1+ PT 12.1 H INR 1.2 H Sodium 139 Potassium 3.7 Chloride 107 Carbon Dioxide 21.6 Anion Gap 10.4 BUN 21 H Creatinine 1.0 Est GFR (CKD-EPI 2020) 55.55 Glucose 137 H Calcium 8.2 L Magnesium 1.9 Iron 18 L TIBC 294 Transferrin % Sat 6 L Ferritin 48 Total Bilirubin 0.5 AST 26 ALT 20 Alkaline Phosphatase 89 Total Protein 6.2 L Albumin 2.9 L ABO/Rh A Positive Antibody Screen NEGATIVE Crossmatch See Detail Last Vital Signs Temp 36.6 C 01/07/24 22:48 Pulse 94 H 01/07/24 22:48 Resp 14 01/07/24 22:48 BP 130/71 01/07/24 22:48 Pulse Ox 99 01/07/24 22:48 Time Spent Time spent with Patient: 55-74 minutes Time was spent: preparing to see the patient(eg.review tests), obtaining and/or reviewing separately otained hiistory, ordering medications,tests, procedures, referring, communicating with other health district manager primary care sales, indepentently interpreting results and care coordination
[2024-01-08] VITALS (11 sets, daily range): BP systolic 117–123; BP diastolic 60–87; PULSE 69–93; RESP 13–16; TEMP 36.7–38; O2SAT 98–100
[2024-01-08] MEDS: Levothyroxine 50 MCG TAB PO (05:18)
[2024-01-08] MEDS: Midodrine 2.5 MG TAB 5 MG PO ×2 (05:18→11:09)
[2024-01-08 07:13] LABS: HCT 24.7 % (36.0-46.0); HGB 7.5 g/dL (11.2-15.7); MCH 27.3 pg (27.0-33.0); MCHC 30.4 % (32.0-36.0); MCV 90 fL (80-95); MPV 10.9 fL (8.0-11.0); Platelet Count 102 10^3/uL (130-400); RBC 2.75 10^6/uL (3.93-5.22); RDW 16.4 % (11.7-14.6); RDW-SD 53.5 fL; WBC 3.04 10^3/uL (4.4-10.8)
[2024-01-08 07:24] LABS: INR 1.2 (0.9-1.1); Prothrombin Time 12.2 sec (9.1-11.1)
[2024-01-08 07:42] LABS: ALT 13 U/L (14-59); AST 22 U/L (15-37); Albumin 2.5 g/dL (3.4-5.0); Alkaline Phosphatase 77 U/L (46-116); Anion Gap 9.9 mmol/L (3-11); BUN 18 mg/dL (7-18); CO2 21.1 mmol/L (21.0-32.0); CREATININE 0.8 mg/dL (0.55-1.02); Calcium 7.9 mg/dL (8.5-10.1); Chloride 111 mmol/L (98-107); Estimated GFR 72.61 (mL/min/1.73m2); Glucose 90 mg/dL (74-106); Magnesium 1.8 mg/dL (1.8-2.4); Potassium 3.8 mmol/L (3.5-5.1); Sodium 142 mmol/L (136-145); Total Protein 5.3 g/dL (6.4-8.2)
[2024-01-08] MEDS: QUEtiapine 25 MG TAB 12.5 MG PO (08:27)
[2024-01-08] MEDS: Metoprolol CR 50 MG TABCR PO (08:28)
[2024-01-08] MEDS: Empaglifozin 10 MG TAB PO (08:28)
[2024-01-08] MEDS: Normal Saline Flush 10 ML SYR IVP (08:29)
[2024-01-08] MEDS: Pantoprazole 40 MG TABCR PO (08:29)
[2024-01-08] MEDS: Loratidine 10 MG TAB PO (08:29)
[2024-01-08] MEDS: Nystatin CREAM 30 GM TUBE TP ×2 (08:49→11:09)
--- NOTE | 2024-01-08 09:30 | PDOC.CMIN ---
Date of service: 01/08/24 Time of Service: 09:30 Care Management Initial Assmt Initial Assessment Reason for Hospitalization: Anemia Functional Status/Living Situation Town of Residence: [facility] Resides with: Child (son Gus) Significant Other/Family: Local ( 3Sons: Gus, Bryan and Miles. [employer]DEST[employer] Conti. Help with transport, shopping and cooking.) Employment Status: Retired Instrumental Activities of Daily Living (ADLs): Independent Activities/Hobbies/SocialSupport: Enjoys doing word search puzzles Medications Medication Management: No Issues/Barriers identified Advance Directives Advance Directives: Do you have an Advance Directive: Y 09/17/23 10:59 AD On File at [facility]: Y 09/17/23 10:59 Date Asked 01/24/22 01/08/24 07:56 AD Date Reviewed 01/07/24 01/08/24 07:56 COLST On File at [facility] Yes 09/17/23 10:59 COLST Date Scanned 08/31/21 09/17/23 10:59 Code Status Resuscitation Status DNR/DNI Insurance Coverage/Financial Issues Insurance: Medicare supplement ACO Member: Yes Care Team Visit Care Team Role Provider Type Elizabeth Hathaway NP Primary Care Provider NURSE PRACTITIONER Ny Goodman, PAULIE Emergency Provider NURSE PRACTITIONER Brent Carr Admit Provider NON-[facility] STAFF PHYSICIAN Attending Provider Discharge Potential Discharge Needs: PCP F/U Appt Anticipated Barriers to Discharge: None Identified Patient/Family Education Needs: Review discharge instructions, discuss Ask Me Three Transportation: Private vehicle Plan: Anticipate Maegan will discharge home with resumption of community supports and New [facility] services, if needed when medically ready. She will follow up with community providers and her discharge plan of care as instructed. She will be driven by family. CM will support discharge considerations and evaluations for further needs. PFSH All Active Problems (Updated 01/07/24 @ 23:45 by yN Goodman NP) Crohn's disease (Chronic) Terminal ileitis (Acute) Colitis (Acute) Acute blood loss anemia (Acute) Chronic atrial fibrillation (Chronic) Heart failure with reduced ejection fraction (Chronic) Aspiration into airway (Acute) Pleural effusion, right (Acute) Pancytopenia (Acute) Cirrhosis (Acute) Thrombocytopenia (Chronic) Urinary incontinence (Acute) Inflammatory bowel disease (Chronic) [facility] [facility] [place] Metatarsalgia of left foot (Acute) Corns and callosities (Acute) Nail dystrophy (Acute) Vascular dementia (Chronic) Delusions (Acute) Alzheimer's dementia with agitation (Acute) Palliative care patient (Acute) Dementia (Chronic) Essential hypertension (Chronic) Onychomycosis (Acute ~06/2021) Iron deficiency anemia (Acute) Managed by [facility]. 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 Brent Castaneda, OD Astigmatism of both eyes [facility] report dated 04/17/18. Brent Castaneda, OD Grade 1 hypertensive retinopathy Meibomian gland dysfunction (MGD) [facility] exam dated 04/17/18. Brent Castaneda, OD Neck pain (09/04/17) Fatigue (09/04/17) Exacerbation of Crohn's disease Microcytic anemia Nonspecific ST-T wave electrocardiographic changes Dehydration Hypomagnesemia Asthma exacerbation Acute bronchitis Influenza A Surgical History H/[place] colonoscopy (04/07/18[place] [facility] [place], Laproscopic Hiatal Hernia repair (09/11/17) Repair of umbilical hernia (09/11/17) Social History Smoking/Tobacco Use Status: Never Smoking risk assessment performed?: Yes Alcohol Intake: never Drug use: Never Substance use type: does not use Household members: children Housing: apartment Number of Children: 3 Current gender identity: female What is your relationship status?: Panel score (0-1 are the most socially isolated patients): 0 What type of physical activity do you participate in: none Seatbelt use: always Water heater temp set <120 deg: Yes Working smoke detector in home: Yes Fire extinguisher in home: Yes Carbon monox detector in home: Yes Firearms in home: No Do you feel safe at home: Yes Do you feel safe in your relationship?: Yes History History Para 3 Hx # Term Pregnancies Multiple births Hx # Pregnancies Ectopic pregnancies AB induced Hx Number of Living Children AB spontaneous SDOH(Care Management) Screening Will the Patient Participate in the Screening?: Yes Do you worry about having a steady place to live?: no Problems where you live: no known problems In the past 12 months, have you had to go without electric, gas, oil or water in your home?: no Have you or anyone in your house had to go without enough food to eat?: no Has lack of transportation kept you from medical appointments or from doing things needed for daily living?: no Has anyone in your support network made you feel unsafe for any reason?: no Social Determinants of Health Comments(SDOH Details): pt lives in [facility]
[2024-01-08 10:07] LABS: HCT 26.3 % (36.0-46.0)
[2024-01-08 10:10] LABS: HGB 8.2 g/dL (11.2-15.7)
--- NOTE | 2024-01-08 10:45 | W.PM.DS.N ---
Date of service: 01/08/24 Time of Service: 10:45 DS: Diagnosis Discharge Diagnosis (1) Acute blood loss anemia: Status: Acute Asessment and Plan: Patient presents to the emergency department after having outpatient labs showing hemoglobin of 7. Upon arrival to the emergency department is 6.3. Patient has a history of very slow presumed to be upper GI bleed with intermittent dark stools and has had a recent hospitalization requiring 2 units PRBCs., This time she is completely asymptomatic, and received 2 units of packed red blood cells with improvement of her hemoglobin from 6.3-8.2. Given that the patient was asymptomatic and remains as such, it was determined that she was stable for discharge home and will be recommended that she discontinue her Eliquis. Additionally, the patient has been informed of signs and symptoms to look out for in the event that she develops DVT or PE now that she is no longer on anticoagulation. (2) Iron deficiency anemia: Status: Chronic Asessment and Plan: -continue outpatient iron infusions (3) Crohn's disease with complication: Status: Chronic (4) Hypothyroidism: Status: Chronic Asessment and Plan: -continue home synthroid (5) Essential hypertension: Status: Chronic Asessment and Plan: -continue home antihypertensive regimen (6) Alzheimer's dementia with agitation: Status: Chronic Discharge Plan Disposition Patient Disposition: Home Condition: Good Discharge Details Reason For Visit: Blood loss anemia, Crohn's disease Admit Date/Time: 01/07/24 23:29 Admit Provider: Brent Carr Attending Provider: Brent Carr Primary Care Provider: Elizabeth Hathaway Hospital Course Hospital Course: Patient presents to the emergency department after having outpatient labs showing hemoglobin of 7. Upon arrival to the emergency department is 6.3. Patient has a history of very slow presumed to be upper GI bleed with intermittent dark stools and has had a recent hospitalization requiring 2 units PRBCs., This time she is completely asymptomatic, and received 2 units of packed red blood cells with improvement of her hemoglobin from 6.3-8.2. Given that the patient was asymptomatic and remains as such, it was determined that she was stable for discharge home and will be recommended that she discontinue her Eliquis. Additionally, the patient has been informed of signs and symptoms to look out for in the event that she develops DVT or PE now that she is no longer on anticoagulation. Home Meds and New Rx's Prescriptions: Continued quetiapine 25 mg tablet See Rx Instructions PO .COMPLEX Qty: 135 3RF Rx Instructions: 12.5mg am and 25mg HS orally; Emgality Pen 120 mg/mL pen injector 120 mg subcut QMONTH Qty: 3 3RF nystatin 100,000 unit/gram cream 1 applic topical QID Qty: 60 3RF loratadine 10 mg tablet 10 mg PO DAILY Qty: 30 0RF triamcinolone acetonide 0.1 % cream 1 applic topical BID PRN (Reason: R ear & hand dermatitis) Qty: 15 0RF Rx Instructions: Use thin layer to affected areas on hand and R ear up to 2x/d; avoid long-term use gabapentin 100 mg capsule 100 mg PO DAILY PRN (Reason: headaches) Qty: 30 3RF balsalazide 750 mg capsule See Rx Instructions PO TID Rx Instructions: 05/13/19 [facility] 1500 mg (2 caps) PO three times a day Venofer 200 mg iron/10 mL solution 300 mg IV [id number] Patient Comments: 08/29/21 q 3m per pt now [place] Instructions: 06[place]20[place] [facility] [place] to every 4 wks. if hgb below 7 will tranfuse. 05/13/19 [facility] [place] [facility] [place] 6 weeks. 04/05/21 [facility] [place] [facility] Infuse if Hgb<7. 10/25/21 [facility] [place] [facility] - Q16 weeks cyanocobalamin (vitamin B-12) 1,000 mcg/mL solution 1,000 mcg IM monthly Qty: 3 3RF atorvastatin 20 mg tablet 20 mg PO DAILY Qty: 90 3RF pantoprazole 40 mg tablet,delayed release (DR/EC) 40 mg PO BID Qty: 180 3RF diltiazem HCl 120 mg capsule,extended release 24hr 120 mg PO QPM Qty: 90 3RF Jardiance 10 mg tablet See Rx Instructions .ROUTE .COMPLEX Qty: 90 0RF Dose Instruction: TAKE ONE TABLET BY MOUTH EVERY MORNING Rx Instructions: TAKE ONE TABLET BY MOUTH EVERY MORNING levothyroxine 50 mcg tablet 50 mcg PO DAILY Qty: 90 3RF mirtazapine 7.5 mg tablet See Rx Instructions .ROUTE .COMPLEX Qty: 90 3RF Dose Instruction: TAKE ONE TABLET BY MOUTH AT BEDTIME FOR APPETITE, MOOD AND SLEEP Rx Instructions: TAKE ONE TABLET BY MOUTH AT BEDTIME FOR APPETITE, MOOD AND SLEEP midodrine 5 mg tablet See Rx Instructions .ROUTE .COMPLEX Qty: 90 0RF Dose Instruction: TAKE ONE TABLET BY MOUTH THREE TIMES A DAY +DO NOT GIVE LAST DOSE OF DAY AFTER 6PM OR WITHIN 4 HOURS OF BEDTIME+ Rx Instructions: TAKE ONE TABLET BY MOUTH THREE TIMES A DAY +DO NOT GIVE LAST DOSE OF DAY AFTER 6PM OR WITHIN 4 HOURS OF BEDTIME+ metoprolol succinate [Toprol XL] 50 mg tablet extended release 24 hr 50 mg PO DAILY Qty: 90 3RF Discontinued apixaban 2.5 mg tablet 2.5 mg PO BID Qty: 180 3RF No Action (DME) Size M incontinence briefs See Rx Instructions .Route .MEDSUPPLY Qty: 40 11RF Rx Instructions: As directed (typically 1 per day) for urinary incontinence (DME) BD Blunt Plastic Cannula 17 x 3 mL syringe 1 ea Miscellaneous monthly Qty: 3 12RF Rx Instructions: BD 3ml syringes 25Gx1 for B-12 injections Discharge Instructions Instructions: Anemia Caused by Low Iron, Adult (DC), Gastrointestinal Bleeding (DC), How to Prevent Blood Clots Activity:: Activity as Tolerated Equipment/Supplies:: No Equipment Needed Diet:: As Tolerated Discharge Orders Discharge Orders: Discharge Order (Routine); Ordered 01/08/24 Ordered By: Christian Bob DS: Summary Time Spent with Patient providing and/or coordinating discharge services: Greater than 30 minutes Status at Discharge Functional status at discharge: independent ambulation Overall status at discharge: patient is back to baseline Mental Status: mental status grossly normal Speech and Movement: speech and movement normal Mood: congruent mood Affect: normal affect Quality:SDOH Health Related Social Needs: Health related social needs risk of homeless Health related social needs details pt states that family is involved with transportation needs Exam Narrative Exam Narrative: Well-appearing elderly female sitting up in the chair no acute distress, ANO x 4, heart regular rate rhythm, lungs clear to auscultation bilaterally, abdomen soft, nontender, nondistended, some intermittent word finding/long-term memory loss noted during discussion Psych Mental Status: mental status grossly normal Speech and Movement: speech and movement normal Mood: congruent mood Affect: normal affect DS: Data Vitals/I&O Vitals and I&O: Vital Signs Temperature 100.4 F H 01/08/24 07:25 Temperature Source Temporal Artery Scan 01/08/24 07:25 Pulse 93 H 01/08/24 07:25 Pulse Rhythm Regular 01/08/24 08:50 Pulse 78 01/08/24 00:40 Respiratory Rate 16 01/08/24 07:25 Respiratory Effort Normal, Non-Labored 01/08/24 08:50 Respiratory Depth Normal 01/08/24 01:19 Respiratory Pattern Normal 01/08/24 08:50 Blood Pressure 117/78 01/08/24 07:25 Blood Pressure Mean 83 01/08/24 00:30 Blood Pressure Position Sitting 01/07/24 18:21 Pulse Oximetry 99 01/08/24 07:25 Oxygen Delivery Method Room Air 01/08/24 07:25 Oxygen Flow Rate 0 01/08/24 07:25 Pain Level 0 01/08/24 07:25 Intake & Output 01/07/24 01/08/24 01/08/24 17:59 05:59 17:59 Intake Total 608.333 / 608.333 240 / 240 Output Total 700 / 700 Balance -91.667 / -91.667 240 / 240 Weight 120 lb 13.013 oz Intake: IV 108.333 / 108.333 Oral 240 / 240 Blood Product 500 / 500 Rbc Leuko Reduced Unit 250 / 250 [id number] Rbc Leuko Reduced Unit 250 / 250 [id number] Output: Urine 700 / 700 Other: Urine Color Yellow Urine Appearance Clear Data Completed and Pending Labs on day of discharge: Labs from last 24 hours 01/08/24 01/08/24 01/07/24 10:00 06:28 18:42 WBC 3.04 L 4.85 RBC 2.75 L 2.33 L Hgb 8.2 L 7.5 L 6.3 L* Hct 26.3 L 24.7 L 21.7 L MCV 90 93 MCH 27.3 27.0 MCHC 30.4 L 29.0 L RDW 16.4 H 16.9 H Plt Count 102 L 170 MPV 10.9 11.2 H Immature Gran % 0.4 Neutrophils % 71.0 Lymphocytes % 17.3 Monocytes % 9.1 Eosinophils % 1.2 Basophils % 1.0 Nucleated RBC % 0.0 Absolute Neutrophils 3.44 Absolute Lymphocytes 0.84 L Absolute Monocytes 0.44 Absolute Eosinophils 0.06 Absolute Basophils 0.05 RBC Morphology See Below Polychromasia Present Hypochromasia 1+ Anisocytosis 1+ PT 12.1 H INR 1.2 H Sodium 142 139 Potassium 3.8 3.7 Chloride 111 H 107 Carbon Dioxide 21.1 21.6 Anion Gap 9.9 10.4 BUN 18 21 H Creatinine 0.8 1.0 Est GFR (CKD-EPI 2020) 72.61 55.55 Glucose 90 137 H Calcium 7.9 L 8.2 L Magnesium 1.8 1.9 Iron 18 L TIBC 294 Transferrin % Sat 6 L Ferritin 48 Total Bilirubin 2.0 H 0.5 AST 22 26 ALT 13 L 20 Alkaline Phosphatase 77 89 Total Protein 5.3 L 6.2 L Albumin 2.5 L 2.9 L ABO/Rh A Positive Antibody Screen NEGATIVE Crossmatch See Detail 01/07/24 06:28 WBC RBC Hgb Hct MCV MCH MCHC RDW Plt Count MPV Immature Gran % Neutrophils % Lymphocytes % Monocytes % Eosinophils % Basophils % Nucleated RBC % Absolute Neutrophils Absolute Lymphocytes Absolute Monocytes Absolute Eosinophils Absolute Basophils RBC Morphology Polychromasia Hypochromasia Anisocytosis PT 12.2 H INR 1.2 H Sodium Potassium Chloride Carbon Dioxide Anion Gap BUN Creatinine Est GFR (CKD-EPI 2020) Glucose Calcium Magnesium Iron TIBC Transferrin % Sat Ferritin Total Bilirubin AST ALT Alkaline Phosphatase Total Protein Albumin ABO/Rh Antibody Screen Crossmatch PFSH All Active Problems (Updated 01/08/24 @ 09:46 by Brent Carr) Crohn's disease (Chronic) Terminal ileitis (Acute) Colitis (Acute) Acute blood loss anemia (Acute) Chronic atrial fibrillation (Chronic) Heart failure with reduced ejection fraction (Chronic) Aspiration into airway (Acute) Pleural effusion, right (Acute) Pancytopenia (Acute) Cirrhosis (Acute) Thrombocytopenia (Chronic) Urinary incontinence (Acute) Inflammatory bowel disease (Chronic) [facility] [place] [place] Metatarsalgia of left foot (Acute) Corns and callosities (Acute) Nail dystrophy (Acute) Vascular dementia (Chronic) Delusions (Acute) Alzheimer's dementia with agitation (Chronic) Palliative care patient (Acute) Dementia (Chronic) Essential hypertension (Chronic) Onychomycosis (Acute ~06/2021) Iron deficiency anemia (Chronic) Managed by [facility] [place] [facility]. 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 Brent Castaneda, OD Astigmatism of both eyes [facility] report dated 04/17/18. Brent Castaneda, OD Grade 1 hypertensive retinopathy Meibomian gland dysfunction (MGD) [facility] exam dated 04/17/18. Brent Castaneda, OD Neck pain (09/04/17) Fatigue (09/04/17) Exacerbation of Crohn's disease Microcytic anemia Nonspecific ST-T wave electrocardiographic changes Dehydration Hypomagnesemia Asthma exacerbation Acute bronchitis Influenza A Surgical History [place] colonoscopy (04/07/18) [facility] [place] Laproscopic Hiatal Hernia repair (09/11/17) Repair of umbilical hernia (09/11/17) Social History Smoking/Tobacco Use Status: Never Smoking risk assessment performed?: Yes Alcohol Intake: never Drug use: Never Substance use type: does not use Household members: children Housing: apartment Number of Children: 3 Current gender identity: female What is your relationship status?: Panel score (0-1 are the most socially isolated patients): 0 What type of physical activity do you participate in: none Seatbelt use: always Water heater temp set <120 deg: Yes Working smoke detector in home: Yes Fire extinguisher in home: Yes Carbon monox detector in home: Yes Firearms in home: No Do you feel safe at home: Yes Do you feel safe in your relationship?: Yes History History Para 3 Hx # Term Pregnancies Multiple births Hx # Pregnancies Ectopic pregnancies AB induced Hx Number of Living Children AB spontaneous Time Spent with Patient Time Spent with Patient: <45 minutes Time was spent: preparing to see the patient(eg.review tests), obtaining and/or reviewing separately otained hiistory, ordering medications,tests, procedures, referring, communicating with other health manager progressive care, indepentently interpreting results, counseling the patient and care coordination
--- NOTE | 2024-01-08 16:07 | CMPROGNOTE_ITS ---
Date of service: 01/08/24 Time of Service: 16:07 Care Management Progress Note Progress Note Text Progress Note Text: Maegan was admitted yesterday with anemia and Crohn's disease. She received 2 units of blood and her Hgb increased to 7.5 overnight and 8.2 this morning. She had no evidence of active bleeding and was hemodynamically stable. Maegan was discharged home with no new services before CM was able to meet with her. SDOH(Care Management) Screening Will the Patient Participate in the Screening?: Yes Do you worry about having a steady place to live?: no Problems where you live: no known problems In the past 12 months, have you had to go without electric, gas, oil or water in your home?: no Have you or anyone in your house had to go without enough food to eat?: no Has lack of transportation kept you from medical appointments or from doing things needed for daily living?: no Has anyone in your support network made you feel unsafe for any reason?: no Social Determinants of Health Comments(SDOH Details): pt lives in [facility]
== END 2024-01-08 12:20 | disposition home or self-care (01) ==
LOC: ER 01-08 01:06 → MS 01-08 01:08
PROVIDERS: Family Medicine; Admitting Provider Family Medicine; Emergency Provider Registered Nurse Emergency; PCP Nurse Practitioner Adult Health; Visit Provider Family Medicine
DX: D62 Acute posthemorrhagic anemia (principal); K50.919 Crohn's disease, unspecified, with unspecified complications; R42 Dizziness and giddiness; I11.0 Hypertensive heart disease with heart failure; G30.9 Alzheimer's disease, unspecified; F02.B11 Dementia in other diseases classified elsewhere, moderate, with agitation; I50.9 Heart failure, unspecified; Z86.718 Personal history of other venous thrombosis and embolism; J45.909 Unspecified asthma, uncomplicated; Z66 Do not resuscitate; Z79.01 Long term (current) use of anticoagulants; Z79.84 Long term (current) use of oral hypoglycemic drugs; I48.0 Paroxysmal atrial fibrillation
CPT/HCPCS: 00123; 36415; 36430; 80053; 85027; 86850; 86900; 86901; 86920; 96374; 99285; 82728; 83540; 83550; 83735; 85014; 85018; 85025; 85610; 99222; 99238; G0378; J2470; P9016

== ENCOUNTER → 2024-01-16 14:05 | Outpatient (BNVA) | payer MEDICARE, OTHER, MEDICAID, SELFPAY | PROVIDERS: PCP Nurse Practitioner Adult Health; Referring Provider Nurse Practitioner Adult Health; Visit Provider Podiatrist | DX: B35.1 Tinea unguium (principal); L84 Corns and callosities; L60.3 Nail dystrophy; E03.9 Hypothyroidism, unspecified; D64.9 Anemia, unspecified; M21.372 Foot drop, left foot; M77.42 Metatarsalgia, left foot; M79.674 Pain in right toe(s); M79.675 Pain in left toe(s); L85.1 Acquired keratosis [keratoderma] palmaris et plantaris; I73.89 Other specified peripheral vascular diseases | CPT/HCPCS: 11055; 11721 ==

== ENCOUNTER 2024-01-29 14:50 | Inpatient (IN) | payer MEDICARE, OTHER, MEDICAID, SELFPAY ==
[2024-01-29] VITALS (12 sets, daily range): BP systolic 100–147; BP diastolic 63–93; PULSE 72–103; RESP 15–21; TEMP 36–37.3; O2SAT 92–99
--- NOTE | 2024-01-29 15:00 | DI.RAD_ITS ---
Exam(s) XR PORTABLE CHEST AP EXAM: XR PORTABLE CHEST AP CLINICAL HISTORY: sob TECHNIQUE: 2D digital imaging was performed of the chest. One image was obtained. An AP view was ob tained. COMPARISON: CR XR CHEST 2V PA LATERAL from 09/16/2018 CR,XR XR CHEST 2V PA LATERAL from 08/12/2023 CR,XR XR PORTABLE CHEST AP from 08/15/2023 FINDINGS: MEDIASTINUM: Normal. HEART: Normal. PULMONARY VASCULATURE: Normal. LUNGS: Linear scarring or atelectasis is seen in the right lung base. No focal consolidating infiltr ates are seen. PLEURAL SPACE: No pleural effusion or pneumothorax. BONE:Within normal limits for the patient's age. OTHER FINDINGS:Normal. IMPRESSION: No acute pulmonary findings. DATA REPOSITORY: RADIATION DOSE DELIVERED:
--- NOTE | 2024-01-29 15:00 | RT.EKG_ITS ---
APPROVED REPORT Exam: Resting ECG Reason for Exam: sob Patient Location: E HR:81 bpm ECG Measurements Heart Rate 81 AXIS ID [id number] P [id number] QRSd 84 QRS 9 QT 358 T 213 QTc 416 Conclusion Atrial fibrillation...? atrial activity Nonspecific repol abnormality, diffuse leads...ST dep, T flat/neg, ant/lat/inf PHysician: afib, mild t wave flattening anteriolateral, but this appears unchanged from prior ekg
[2024-01-29 15:26] LABS: Abs Immature Grans 0.01 10^3/uL (0.0-0.06); Absolute Basophil Count 0.03 10^3/uL (0.0-0.2); Absolute Eosinophil Count 0.05 10^3/uL (0.0-0.7); Absolute Lymphocyte Count 0.36 10^3/uL (1.2-3.4); Absolute Monocyte Count 0.29 10^3/uL (0.1-0.8); Absolute Neutrophil Count 2.75 10^3/uL (1.2-6.7); Basophils % 0.9 %; Eosinophils % 1.4 %; HCT 25.4 % (36.0-46.0); HGB 7.7 g/dL (11.2-15.7); Immature Grans % 0.3 %; Lymphocytes % 10.3 %; MCH 25.5 pg (27.0-33.0); MCHC 30.3 % (32.0-36.0); MCV 84 fL (80-95); Monocytes % 8.3 %; Neutrophils % 78.8 %; Platelet Count 111 10^3/uL (130-400); RBC 3.02 10^6/uL (3.93-5.22); RDW 16.6 % (11.7-14.6); RDW-SD 50.8 fL; WBC 3.49 10^3/uL (4.4-10.8)
[2024-01-29 15:27] LABS: BE (Venous) -3 mmol/L (-2-3); HCO3 (Venous) 22 mmol/L (23-28); O2 Sat (Venous) 61 %; TCO2 (Venous) 22 mmol/L (24-29); pCO2 (Venous) 38 mmHg (41-51); pH (Venous) 7.38 (7.31-7.41); pO2 (Venous) 34 mmHg
[2024-01-29 15:28] LABS: Lactate 1.2 mmol/L (0.6-1.4)
[2024-01-29 15:39] LABS: INR 1.1 (0.9-1.1); PTT Activated 26.7 sec (23.6-32.8); Prothrombin Time 11.3 sec (9.1-11.1)
[2024-01-29 15:51] LABS: Bilirubin Negative (Negative); Blood Moderate (Negative); Clarity Sl Cloudy (Clear); Glucose 500 mg/dL (Negative); Ketones Negative (Negative); Leukocyte Esterase Small (Negative); Nitrite Positive (Negative); Specific Gravity 1.015 (1.005-1.025); Urobilinogen 0.2 mg/dL (Up to 0.2); pH 5.5 (5-8)
[2024-01-29 15:59] LABS: Bacteria Many HPF (Negative); C & S Indicated? Yes; Crystals Negative HPF (Negative); Epithelial Cells Rare HPF (Negative); Mucus Trace (Negative); Other Cells Rare Transitional (Negative); WBC 20-50 HPF (0-5)
[2024-01-29 16:02] LABS: Procalcitonin 1.3 ng/mL
--- NOTE | 2024-01-29 16:04 | ED.GENADUL_ITS ---
Discharge Plan Disposition Patient Disposition: Admit to [facility] Condition: Stable Discharge Details Chief Complaint: GenMedical Clinical Impression: Urinary tract infection, Congestive heart failure Primary Care Provider: Elizabeth Hathaway ED Provider: Dileep Holder Home Meds and New Rx's Prescriptions: No Action ketoconazole 2 % cream 1 applic topical DAILY Qty: 30 5RF Rx Instructions: Apply to thick, fungal nails daily. (apply at an opposite time of day from Urea). quetiapine 25 mg tablet See Rx Instructions PO .COMPLEX Qty: 135 3RF Rx Instructions: 12.5mg am and 25mg HS orally; Emgality Pen 120 mg/mL pen injector 120 mg subcut QMONTH Qty: 3 3RF nystatin 100,000 unit/gram cream 1 applic topical QID Qty: 60 3RF aspirin 81 mg tablet,delayed release (DR/EC) 81 mg PO DAILY triamcinolone acetonide 0.1 % cream 1 applic topical BID PRN (Reason: R ear & hand dermatitis) Qty: 15 0RF Rx Instructions: Use thin layer to affected areas on hand and R ear up to 2x/d; avoid long- term use (DME) Size M incontinence briefs See Rx Instructions .Route .MEDSUPPLY Qty: 40 11RF Rx Instructions: As directed (typically 1 per day) for urinary incontinence gabapentin 100 mg capsule 100 mg PO DAILY PRN (Reason: headaches) Qty: 30 3RF balsalazide 750 mg capsule See Rx Instructions PO TID Rx Instructions: 05/13/19 [facility] 1500 mg (2 caps) PO three times a day Venofer 200 mg iron/10 mL solution 300 mg IV [id number] Patient Comments: 08/29/21 q 3m per pt now Rx Instructions: 06/01/20- [facility]-change infusion to every 4 wks. if hgb below 7 will tranfuse. 05/13/19 [facility] [place] [facility] IVF every 6 weeks. mk 04/05/21 [facility] [place] [facility] Infuse if Hgb<7. mk 10/25/21 [facility] [facility] - Q16 weeks (DME) BD Blunt Plastic Cannula 17 x 3 mL syringe 1 ea Miscellaneous monthly Qty: 3 12RF Rx Instructions: BD 3ml syringes 25Gx1 for B-12 injections cyanocobalamin (vitamin B-12) 1,000 mcg/mL solution 1,000 mcg IM monthly Qty: 3 3RF atorvastatin 20 mg tablet 20 mg PO DAILY Qty: 90 3RF pantoprazole 40 mg tablet,delayed release (DR/EC) 40 mg PO BID Qty: 180 3RF diltiazem HCl 120 mg capsule,extended release 24hr 120 mg PO QPM Qty: 90 3RF levothyroxine 50 mcg tablet 50 mcg PO DAILY Qty: 90 3RF mirtazapine 7.5 mg tablet See Rx Instructions .ROUTE .COMPLEX Qty: 90 3RF Dose Instruction: TAKE ONE TABLET BY MOUTH AT BEDTIME FOR APPETITE, MOOD AND SLEEP Rx Instructions: TAKE ONE TABLET BY MOUTH AT BEDTIME FOR APPETITE, MOOD AND SLEEP metoprolol succinate [Toprol XL] 50 mg tablet extended release 24 hr 50 mg PO DAILY Qty: 90 3RF Jardiance 10 mg tablet See Rx Instructions .ROUTE .COMPLEX Qty: 90 3RF Dose Instruction: TAKE ONE TABLET BY MOUTH EVERY MORNING Rx Instructions: TAKE ONE TABLET BY MOUTH EVERY MORNING midodrine 5 mg tablet See Rx Instructions .ROUTE .COMPLEX Qty: 90 0RF Dose Instruction: TAKE ONE TABLET BY MOUTH THREE TIMES A DAY +DO NOT GIVE LAST DOSE OF DAY AFTER 6PM OR WITHIN 4 HOURS OF BEDTIME+ Rx Instructions: TAKE ONE TABLET BY MOUTH THREE TIMES A DAY +DO NOT GIVE LAST DOSE OF DAY AFTER 6PM OR WITHIN 4 HOURS OF BEDTIME+ HPI General Date/Time Provider Initiated Documentation: 01/29/24 14:51 . HPI Narrative: 83-year-old female with a past medical history of Crohn's disease who takes balsalazide for treatment, congestive heart failure, previous DVT in 2018, previous A-fib, previously on Eliquis but this was discontinued after last admission from acute blood loss anemia on 01/07, currently on a daily aspirin but no anticoagulants, hypothyroidism, hysterectomy, who presents today for evaluation of swelling edema or shortness of breath. Patient has noticed an in crease of 16 pounds of weight gain over the last week and a half as well as swelling in her lower extremities. She is not currently on any diuretic. She is also noted some mild shortness of breath over the last few days. She denies any dark or tarry stools, increased frequency of stools, bloody stools or vomiting. She denies any chest pain or pleuritic chest pain. She was seen by her primary care provider today who did have significant concern with her increased weakness shortness of breath and swelling. She also had a fever at her primary care provider's office,She came into the ER for further evaluation. She denies any other complaints at this time. No significant changes in diet. No abdominal pain or tenderness whatsoever. Related Data Home Medications Medication Instructions Recorded Confirmed balsalazide 750 mg capsule See Rx Instructions PO TID 05/14/19 01/16/24 iron sucrose 200 mg iron/10 mL 300 mg IV [id number] 10/26/21 01/16/24 intravenous solution (Venofer) syringe with cannula,disposabl 17 #3 SYRGS 10/22/22 01/16/24 x 3 mL (BD Blunt Plastic Cannula) cyanocobalamin (vitamin B-12) 1,000 mcg IM monthly #3 vials 06/19/23 01/16/24 1,000 mcg/mL injection solution quetiapine 25 mg tablet See Rx Instructions PO .COMPLEX 06/27/23 01/16/24 #135 tabs Size M incontinence briefs #40 ea 07/25/23 01/16/24 galcanezumab-gnlm 120 mg/mL 120 mg subcut QMONTH #3 mL 07/25/23 01/16/24 subcutaneous pen injector (Emgality Pen) triamcinolone acetonide 0.1 % 1 applic topical BID PRN R ear & 07/25/23 01/16/24 topical cream hand dermatitis #15 grams atorvastatin 20 mg tablet 20 mg PO DAILY #90 tabs 09/11/23 01/16/24 diltiazem HCl 120 mg 120 mg PO QPM #90 caps 09/11/23 01/16/24 capsule,extended release 24 hr pantoprazole 40 mg tablet,delayed 40 mg PO BID #180 tabs 09/11/23 01/16/24 release gabapentin 100 mg capsule 100 mg PO DAILY PRN headaches #30 09/19/23 01/16/24 caps nystatin 100,000 unit/gram topical 1 applic topical QID groin folds 11/12/23 01/16/24 cream rash #60 grams levothyroxine 50 mcg tablet 50 mcg PO DAILY #90 tabs 11/13/23 01/16/24 mirtazapine 7.5 mg tablet See Rx Instructions .Route 01/01/24 01/16/24 .COMPLEX #90 tabs metoprolol succinate 50 mg 50 mg PO DAILY #90 tabs 01/06/24 01/16/24 tablet,extended release 24 hr (Toprol XL) ketoconazole 2 % topical cream 1 applic topical DAILY #30 grams 01/16/24 01/16/24 empagliflozin 10 mg tablet See Rx Instructions .Route 01/20/24 (Jardiance) .COMPLEX #90 tabs midodrine 5 mg tablet See Rx Instructions .Route 01/27/24 .COMPLEX #90 tabs aspirin 81 mg tablet,delayed 81 mg PO DAILY 01/29/24 release Previous Rx's Medication Instructions Recorded syringe with cannula,disposabl 17 #3 SYRGS 10/22/22 x 3 mL (BD Blunt Plastic Cannula) cyanocobalamin (vitamin B-12) 1,000 mcg IM monthly #3 vials 06/19/23 1,000 mcg/mL injection solution quetiapine 25 mg tablet See Rx Instructions PO .COMPLEX 06/27/23 #135 tabs Size M incontinence briefs #40 ea 07/25/23 galcanezumab-gnlm 120 mg/mL 120 mg subcut QMONTH #3 mL 07/25/23 subcutaneous pen injector (Emgality Pen) triamcinolone acetonide 0.1 % 1 applic topical BID PRN R ear & 07/25/23 topical cream hand dermatitis #15 grams atorvastatin 20 mg tablet 20 mg PO DAILY #90 tabs 09/11/23 diltiazem HCl 120 mg 120 mg PO QPM #90 caps 09/11/23 capsule,extended release 24 hr pantoprazole 40 mg tablet,delayed 40 mg PO BID #180 tabs 09/11/23 release gabapentin 100 mg capsule 100 mg PO DAILY PRN headaches #30 09/19/23 caps nystatin 100,000 unit/gram topical 1 applic topical QID groin folds 11/12/23 cream rash #60 grams levothyroxine 50 mcg tablet 50 mcg PO DAILY #90 tabs 11/13/23 mirtazapine 7.5 mg tablet See Rx Instructions .Route 01/01/24 .COMPLEX #90 tabs metoprolol succinate 50 mg 50 mg PO DAILY #90 tabs 01/06/24 tablet,extended release 24 hr (Toprol XL) ketoconazole 2 % topical cream 1 applic topical DAILY #30 grams 01/16/24 empagliflozin 10 mg tablet See Rx Instructions .Route 01/20/24 (Jardiance) .COMPLEX #90 tabs midodrine 5 mg tablet See Rx Instructions .Route 01/27/24 .COMPLEX #90 tabs Allergies Allergy/AdvReac Type Severity Reaction Status Date / Time acetaminophen AdvReac Intermediate Headache Verified 01/29/24 15:02 ibuprofen AdvReac Intermediate Headache Verified 01/29/24 15:02 lactose intolerant AdvReac Intermediate cramps, Uncoded 01/29/24 15:02 diarrhea General Stated Complaint: GenMedical ADALGISA: 3 Review of Systems All systems reviewed & are unremarkable except as noted in HPI and below Exam Narrative Exam Narrative: 1.Const: Well-nourished, Well-developed, appearing stated age 2.Eyes: PERRL, no conjunctival injection, and symmetrical lids. 3.ENT: Atraumatic external nose and ears. Moist MM. Neck: Symmetric, trachea midline, No thyromegaly. 4.CVS: +S1/S2, No murmurs or gallops. Peripheral pulses 2+ and equal in all extremities. Brisk capillary refill in all extremities. 5.RESP: Unlabored respiratory effort. Minimal crackle in left lower lung for 6.GI: Soft, Nontender/Nondistended, No hepatosplenomegaly. No guarding or rebound. 7.MSK: Normocephalic/Atraumatic, Extremities w/o deformity or ttp No cyanosis or clubbing, Normal movement of all extremities. +3 pitting edema. 8.Skin: Warm, Dry. No rashes or lesions. 9.Neuro: expressive music therapist II-XII grossly intact. Sensation grossly intact, no focal neurologic deficits. 10.Psych: (AAO) x3. Appropriate mood and affect Course Vital Signs Vital signs: Vital Signs Temperature 37.3 C 01/29/24 14:55 Pulse 97 H 01/29/24 14:55 Respiratory Rate 01/29/24 14:55 Blood Pressure 112/71 01/29/24 14:55 Pulse Oximetry 98 01/29/24 14:55 Temperature 37.3 C 01/29/24 14:55 Temperature Source Skin 01/29/24 14:55 Pulse 97 H 01/29/24 14:55 Respiratory Rate 01/29/24 14:55 Blood Pressure 112/71 01/29/24 14:55 Blood Pressure Position Sitting 01/29/24 14:55 Pulse Oximetry 98 01/29/24 14:55 Oxygen Delivery Method Room Air 01/29/24 14:55 Oxygen Flow Rate 0 01/29/24 14:55 Pain Level 0 01/29/24 14:55 Lab/Test Results Lab/Test Results: 01/29/24 15:30 Urine - Reflex from Ua Urine Culture - Pending 01/29/24 15:02 Blood Blood Culture - Pending 01/29/24 15:02 Blood Blood Culture - Pending Laboratory Tests Range/Units 01/29/24 01/29/24 15:08 15:30 WBC (4.4-10.8) 10^3/uL 3.49 L RBC (3.93-5.22) 10^6/uL 3.02 L Hgb (11.2-15.7) g/dL 7.7 L Hct (36.0-46.0) % 25.4 L MCV (80-95) fL 84 MCH (27.0-33.0) pg 25.5 L MCHC (32.0-36.0) % 30.3 L RDW (11.7-14.6) % 16.6 H Plt Count (130-400) 10^3/uL 111 L MPV (8.0-11.0) fL 11.0 Immature Gran % % 0.3 Neutrophils % % 78.8 Lymphocytes % % 10.3 Monocytes % % 8.3 Eosinophils % % 1.4 Basophils % % 0.9 Nucleated RBC % (0.0-0.3) % 0.0 Absolute Neutrophils (1.2-6.7) 10^3/uL 2.75 Absolute Lymphocytes (1.2-3.4) 10^3/uL 0.36 L Absolute Monocytes (0.1-0.8) 10^3/uL 0.29 Absolute Eosinophils (0.0-0.7) 10^3/uL 0.05 Absolute Basophils (0.0-0.2) 10^3/uL 0.03 PT (9.1-11.1) sec 11.3 H INR (0.9-1.1) 1.1 APTT (23.6-32.8) sec 26.7 VBG pH (7.31-7.41) 7.38 VBG pCO2 (41-51) mmHg 38 L VBG pO2 mmHg 34 VBG HCO3 (23-28) mmol/L 22 L VBG Total CO2 (24-29) mmol/L 22 L VBG O2 Saturation % 61 VBG Base Excess (-2-3) mmol/L -3 L VBG Lactate (0.6-1.4) mmol/L 1.2 Procalcitonin ng/mL 1.3 Urine Color (Yellow) Yellow Urine Clarity (Clear) Sl Cloudy Urine pH (5-8) 5.5 Ur Specific [place] (1.005-1.025) 1.015 Urine Protein (Neg-Trace) mg/dL 30 H Urine Ketones (Negative) mg/dL Negative Urine Blood (Negative) Moderate H Urine Nitrite (Negative) Positive H Urine Bilirubin (Negative) Negative Urine Urobilinogen (Up to 0.2) mg/dL 0.2 Ur Leukocyte Esterase (Negative) Small H Urine RBC (0-2) HPF 10-20 H Urine WBC (0-5) HPF 20-50 H Ur Epithelial Cells (Negative) HPF Rare Urine Crystals (Negative) HPF Negative Urine Bacteria (Negative) HPF Many Urine Mucus (Negative) Trace Urine Other (Negative) Rare Transitional Ur Culture Indicated? Yes Urine Glucose (Negative) mg/dL 500 H Medical Decision Making 83-year-old female with a past medical history of Crohn's disease who takes balsalazide for treatment, congestive heart failure, previous DVT in 2018, previous A-fib, previously on Eliquis but this was discontinued after last admission from acute blood loss anemia on 01/07, currently on a daily aspirin but no anticoagulants, hypothyroidism, hysterectomy, who presents today for evaluation of swelling edema or shortness of breath. Patient has noticed an increase of 16 pounds of weight gain over the last week and a half as well as swelling in her lower extremities. She is not currently on any diuretic. She is also noted some mild shortness of breath over the last few days. She denies any dark or tarry stools, increased frequency of stools, bloody stools or vomiting. She denies any chest pain or pleuritic chest pain. She was seen by her primary care provider today who did have significant concern with her increased weakness shortness of breath and swelling. She also had a fever at her primary care provider's office,She came into the ER for further evaluation. She denies any other complaints at this time. No significant changes in diet. No abdominal pain or tenderness whatsoever. Exam demonstrates +3 pitting edema in the lower extremities, minimal crackles left lower lung field, borderline fever at 99 ?F. Differential includes mild GI bleed chronically from her Crohn's or gastric ulcer, mild congestive heart failure, potential pneumonia, and potential UTI. We will evaluate for these etiologies, monitor closely and reassess. 6:07 PM Laboratory workup has returned, patient does have a low WBC count which is chronic secondary to her chronic manage suppression from medication use, hemoglobin is 7.7, which is not a huge drop compared to before, but lower than her old baseline but certainly higher than her acute episodes of bleeding. Platelets are stable at 111. Potassium minimally low at 3.1, troponin normal, procalcitonin elevated at 1.3, urinalysis shows leuk esterase, positive nitrates, 20-50 WBCs. Previous cultures show fu sensitivity for E. coli. 2 g of ceftriaxone were given. Chest x-ray and read as negative per radiology. However we did get the patient up to ambulate her and her oxygen did drop down to 86%. She had been given the 20 mg of IV Lasix. COVID flu and RSV are negative. At this time with the patient's urinary tract infection, mild hypoxemia with ambulation although she is demonstrating normal oxygen levels at rest, I do feel that she would be appropriate for admission for continued antibacterial treatment of her UTI, and her suspected clinical mild CHF. I discussed this with the patient and family and they agree, discussed this with the hospitalist and he agrees. Patient has been accepted for admission. I have extensively reviewed the treatment plan with the patient. I have addressed all patient concerns at this time. I have also discussed the plan with the admitting physician and they agree with the current assessment and plan and have agreed to assume responsibility for the patient. All parties demonstrate verbal understanding and agreement with our assessment and plan at this time. The documentation in this chart was dictated using [address] [employer] dictation software. Please excuse any dictation errors. FINDINGS: MEDIASTINUM: Normal. HEART: Normal. PULMONARY VASCULATURE: Normal. LUNGS: Linear scarring or atelectasis is seen in the right lung base. No focal consolidating infiltrates are seen. PLEURAL SPACE: No pleural effusion or pneumothorax. BONE:Within normal limits for the patient's age. OTHER FINDINGS:Normal. IMPRESSION: No acute pulmonary findings. Quality:SDOH Health Related Social Needs: Health related social needs risk of homeless Health related social needs details pt states that pippa rosario is involved with transportation needs PFSH All Active Problems (Updated 01/29/24 @ 18:10 by Dileep Holder DO) Congestive heart failure (Chronic) Urinary tract infection (Acute) Edema due to congestive heart failure (Acute) Fever (Acute) Crohn's disease (Chronic) Terminal ileitis (Acute) Colitis (Acute) Chronic atrial fibrillation (Chronic) Heart failure with reduced ejection fraction (Chronic) Aspiration into airway (Acute) Pleural effusion, right (Acute) Pancytopenia (Acute) Cirrhosis (Acute) Thrombocytopenia (Chronic) Urinary incontinence (Acute) Inflammatory bowel disease (Chronic) [facility] 04/17/23 Metatarsalgia of left foot (Acute) Corns and callosities (Acute) Nail dystrophy (Acute) Vascular dementia (Chronic) Delusions (Acute) Alzheimer's dementia with agitation (Chronic) Palliative care patient (Acute) Dementia (Chronic) Essential hypertension (Chronic) Onychomycosis (Acute ~06/2021) Iron deficiency anemia (Chronic) Managed by [facility]. 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 Brent Castaneda, OD Astigmatism of both eyes [facility] report dated 04/17/18. Brent Castaneda, OD Grade 1 hypertensive retinopathy Meibomian gland dysfunction (MGD) [facility] exam dated 04/17/18. Brent Castaneda, OD Neck pain (09/04/17) Fatigue (09/04/17) Exacerbation of Crohn's disease Microcytic anemia Nonspecific ST-T wave electrocardiographic changes Dehydration Hypomagnesemia Asthma exacerbation Acute bronchitis Influenza A Surgical History H/O colonoscopy (04/07/18) [facility] Hysterectomy, Laproscopic Hiatal Hernia repair (09/11/17) Repair of umbilical hernia (09/11/17) Social History Smoking/Tobacco Use Status: Never Smoking risk assessment performed?: Yes Alcohol Intake: never Drug use: Never Substance use type: does not use Household members: children Housing: apartment Number of Children: 3 Current gender identity: female What is your relationship status?: Panel score (0-1 are the most socially isolated patients): 0 What type of physical activity do you participate in: none Seatbelt use: always Water heater temp set <120 deg: Yes Working smoke detector in home: Yes Fire extinguisher in home: Yes Carbon monox detector in home: Yes Firearms in home: No Do you feel safe at home: Yes Do you feel safe in your relationship?: Yes History History Para 3 Hx # Term Pregnancies Multiple births Hx # Pregnancies Ectopic pregnancies AB induced Hx Number of Living Children AB spontaneous
[2024-01-29] MEDS: cefTRIAXone 2 GM/50 ML BAG IVPB (16:07)
[2024-01-29] MEDS: Furosemide 20 MG/2 ML VIAL IVP (16:07)
[2024-01-29 16:09] LABS: COVID-19 PCR Negative (Negative); Influenza A PCR Negative (Negative); Influenza B PCR Negative (Negative); RSV PCR Negative (Negative)
[2024-01-29 16:12] LABS: Source Nasopharynx
[2024-01-29 16:17] LABS: ALT 31 U/L (14-59); AST 66 U/L (15-37); Albumin 2.7 g/dL (3.4-5.0); Alkaline Phosphatase 260 U/L (46-116); Anion Gap 8.1 mmol/L (3-11); BUN 14 mg/dL (7-18); Bilirubin, Total 1.35 mg/dL (0.2-1.0); CO2 23.9 mmol/L (21.0-32.0); CREATININE 1.1 mg/dL (0.55-1.02); Calcium 8.2 mg/dL (8.5-10.1); Chloride 106 mmol/L (98-107); Estimated GFR 49.55 (mL/min/1.73m2); Glucose 97 mg/dL (74-106); NT-proBNP 2081 pg/mL (<300); Potassium 3.1 mmol/L (3.5-5.1); Sodium 138 mmol/L (136-145); TSH (W/Ref FT4) 1.86 uIU/mL (0.36-3.74); Total Protein 6.5 g/dL (6.4-8.2); Troponin I < 50 ng/L (< or =60)
--- NOTE | 2024-01-29 17:38 | NUR.NOTE ---
Nursing Note: Doctor yani asked me to ambulate patient with oxygen monitoring. Lowest pt stated was 86 percent on room air.
[2024-01-29] MEDS: Potassium Chloride 20 MEQ TABCR 40 MEQ PO (17:42)
[2024-01-29] MEDS: POTASSIUM CHLORIDE 20 MEQ/100 ML BAG 50 MEQ IVINF (17:42)
--- NOTE | 2024-01-29 18:18 | W.PC.ACHO ---
Registration Status: REG ER Primary Language: Preferred Language: Greek ED Information & Data Chief Complaint GenMedical 01/29/24 16:19 Chief Complaint GenMedical 01/29/24 16:11 Triage Note sent by PCP for 16lb weight 01/29/24 14:55 gain since 01/07, increased SOB, 3-4+ pitting edema in lower extremities, Hbg 6.7 and T101.3 in clinic. Recent UTI. PCP sending referrals for home health & Palliative consults. Medical / Surgical History (Last Reviewed 01/29/24 @ 16:09 by Dileep Holder DO) E. coli UTI Acute on chronic HFrEF (heart failure with reduced ejection fraction) Preseptal cellulitis Elevated liver function tests Atrial fibrillation with rapid ventricular response Visual hallucinations Sensorineural hearing loss, bilateral Fall Deep vein thrombosis (DVT) (09/12/17) Mild intermittent asthma without complication (09/12/17) Posterior staphyloma Astigmatism of both eyes Grade 1 hypertensive retinopathy Meibomian gland dysfunction (MGD) Neck pain (09/04/17) Fatigue (09/04/17) Exacerbation of Crohn's disease Microcytic anemia Nonspecific ST-T wave electrocardiographic changes Dehydration Hypomagnesemia Asthma exacerbation Acute bronchitis Influenza A (Last Reviewed 01/29/24 @ 16:09 by Dileep Holder DO) H/O colonoscopy (04/07/18) Hysterectomy, Laproscopic Hiatal Hernia repair (09/11/17) Repair of umbilical hernia (09/11/17) Most Recent Vital Signs Temperature 37.3 C 01/29/24 14:55 Temperature Source Skin 01/29/24 14:55 Pulse 103 H 01/29/24 16:31 Pulse 93 H 01/29/24 16:31 Respiratory Rate 18 01/29/24 16:31 Respiratory Effort Normal, Non-Labored 01/29/24 16:19 Blood Pressure 147/85 H 01/29/24 16:31 Blood Pressure Mean 102 01/29/24 16:31 Blood Pressure Position Sitting 01/29/24 14:55 Pulse Oximetry 94 01/29/24 16:30 Oxygen Delivery Method Room Air 01/29/24 14:55 Oxygen Flow Rate 0 01/29/24 14:55 Pain Level 0 01/29/24 14:55 Allergies acetaminophen Adverse Reaction (Intermediate, Verified 01/29/24 15:02) Headache in higher doses of 650mg ibuprofen Adverse Reaction (Intermediate, Verified 01/29/24 15:02) Headache lactose intolerant Adverse Reaction (Intermediate, Uncoded 01/29/24 15:02) cramps, diarrhea Precautions Isolation Standard precaution 01/29/24 16:19 Active Medications Generic Name Dose Route Start Last Admin Trade Name Marcelo PRN Reason Stop Dose Admin Potassium Chloride 20 meq in 100 mls @ 50 mls/hr 01/29/24 16:46 01/29/24 17:42 IVINF 01/29/24 18:45 50 mls/hr NOW ONE Administration IV IV Catheter Type [Left Saline Lock Antecubital] IV Catheter Gauge [Left 18 Antecubital] Diagnostics 01/29/24 01/29/24 01/29/24 Range/Units 18:02 15:30 15:13 WBC (4.4-10.8) 10^3/uL RBC (3.93-5.22) 10^6/uL Hgb (11.2-15.7) g/dL Hct (36.0-46.0) % MCV (80-95) fL MCH (27.0-33.0) pg MCHC (32.0-36.0) % RDW (11.7-14.6) % Plt Count (130-400) 10^3/uL MPV (8.0-11.0) fL Immature Gran % % Neutrophils % % Lymphocytes % % Monocytes % % Eosinophils % % Basophils % % Nucleated RBC % (0.0-0.3) % Absolute Neutrophils (1.2-6.7) 10^3/uL Absolute Lymphocytes (1.2-3.4) 10^3/uL Absolute Monocytes (0.1-0.8) 10^3/uL Absolute Eosinophils (0.0-0.7) 10^3/uL Absolute Basophils (0.0-0.2) 10^3/uL PT (9.1-11.1) sec INR (0.9-1.1) APTT (23.6-32.8) sec VBG pH (7.31-7.41) VBG pCO2 (41-51) mmHg VBG pO2 mmHg VBG HCO3 (23-28) mmol/L VBG Total CO2 (24-29) mmol/L VBG O2 Saturation % VBG Base Excess (-2-3) mmol/L VBG Lactate (0.6-1.4) mmol/L Sodium (136-145) mmol/L Potassium (3.5-5.1) mmol/L Chloride (98-107) mmol/L Carbon Dioxide (21.0-32.0) mmol/L Anion Gap (3-11) mmol/L BUN (7-18) mg/dL Creatinine (0.55-1.02) mg/dL Est GFR (CKD-EPI 2020) (mL/min/1.73m2) Glucose (74-106) mg/dL Calcium (8.5-10.1) mg/dL Total Bilirubin (0.2-1.0) mg/dL AST (15-37) U/L ALT (14-59) U/L Alkaline Phosphatase (46-116) U/L Troponin I Pending (< or =60) ng/L NT-Pro-B Natriuret Pep (<300) pg/mL Total Protein (6.4-8.2) g/dL Albumin (3.4-5.0) g/dL Procalcitonin ng/mL TSH (0.36-3.74) uIU/mL Urine Color Yellow (Yellow) Urine Clarity Sl Cloudy (Clear) Urine pH 5.5 (5-8) Ur Specific H[place]ley 1.015 (1.005-1.025) Urine Protein 30 H (Neg-Trace) mg/dL Urine Ketones Negative (Negative) mg/dL Urine Blood Moderate H (Negative) Urine Nitrite Positive H (Negative) Urine Bilirubin Negative (Negative) Urine Urobilinogen 0.2 (Up to 0.2) mg/dL Ur Leukocyte Esterase Small H (Negative) Urine RBC 10-20 H (0-2) HPF Urine WBC 20-50 H (0-5) HPF Ur Epithelial Cells Rare (Negative) HPF Urine Crystals Negative (Negative) HPF Urine Bacteria Many (Negative) HPF Urine Mucus Trace (Negative) Urine Other Rare Transitional (Negative) Ur Culture Indicated? Yes Urine Glucose 500 H (Negative) mg/dL COVID-19 Source Nasopharynx SARS-CoV-2 (PCR) Negative (Negative) Influenza Type A (PCR) Negative (Negative) Influenza Type B (PCR) Negative (Negative) RSV (PCR) Negative (Negative) 01/29/24 Range/Units 15:08 WBC 3.49 L (4.4-10.8) 10^3/uL RBC 3.02 L (3.93-5.22) 10^6/uL Hgb 7.7 L (11.2-15.7) g/dL Hct 25.4 L (36.0-46.0) % MCV 84 (80-95) fL MCH 25.5 L (27.0-33.0) pg MCHC 30.3 L (32.0-36.0) % RDW 16.6 H (11.7-14.6) % Plt Count 111 L (130-400) 10^3/uL MPV 11.0 (8.0-11.0) fL Immature Gran % 0.3 % Neutrophils % 78.8 % Lymphocytes % 10.3 % Monocytes % 8.3 % Eosinophils % 1.4 % Basophils % 0.9 % Nucleated RBC % 0.0 (0.0-0.3) % Absolute Neutrophils 2.75 (1.2-6.7) 10^3/uL Absolute Lymphocytes 0.36 L (1.2-3.4) 10^3/uL Absolute Monocytes 0.29 (0.1-0.8) 10^3/uL Absolute Eosinophils 0.05 (0.0-0.7) 10^3/uL Absolute Basophils 0.03 (0.0-0.2) 10^3/uL PT 11.3 H (9.1-11.1) sec INR 1.1 (0.9-1.1) APTT 26.7 (23.6-32.8) sec VBG pH 7.38 (7.31-7.41) VBG pCO2 38 L (41-51) mmHg VBG pO2 34 mmHg VBG HCO3 22 L (23-28) mmol/L VBG Total CO2 22 L (24-29) mmol/L VBG O2 Saturation 61 % VBG Base Excess -3 L (-2-3) mmol/L VBG Lactate 1.2 (0.6-1.4) mmol/L Sodium 138 (136-145) mmol/L Potassium 3.1 L (3.5-5.1) mmol/L Chloride 106 (98-107) mmol/L Carbon Dioxide 23.9 (21.0-32.0) mmol/L Anion Gap 8.1 (3-11) mmol/L BUN 14 (7-18) mg/dL Creatinine 1.1 H (0.55-1.02) mg/dL Est GFR (CKD-EPI 2020) 49.55 (mL/min/1.73m2) Glucose 97 (74-106) mg/dL Calcium 8.2 L (8.5-10.1) mg/dL Total Bilirubin 1.35 H (0.2-1.0) mg/dL AST 66 H (15-37) U/L ALT 31 (14-59) U/L Alkaline Phosphatase 260 H (46-116) U/L Troponin I < 50 (< or =60) ng/L NT-Pro-B Natriuret Pep 2081 H (<300) pg/mL Total Protein 6.5 (6.4-8.2) g/dL Albumin 2.7 L (3.4-5.0) g/dL Procalcitonin 1.3 ng/mL TSH 1.86 (0.36-3.74) uIU/mL Urine Color (Yellow) Urine Clarity (Clear) Urine pH (5-8) Ur Specific H[place]ley (1.005-1.025) Urine Protein (Neg-Trace) mg/dL Urine Ketones (Negative) mg/dL Urine Blood (Negative) Urine Nitrite (Negative) Urine Bilirubin (Negative) Urine Urobilinogen (Up to 0.2) mg/dL Ur Leukocyte Esterase (Negative) Urine RBC (0-2) HPF Urine WBC (0-5) HPF Ur Epithelial Cells (Negative) HPF Urine Crystals (Negative) HPF Urine Bacteria (Negative) HPF Urine Mucus (Negative) Urine Other (Negative) Ur Culture Indicated? Urine Glucose (Negative) mg/dL COVID-19 Source SARS-CoV-2 (PCR) (Negative) Influenza Type A (PCR) (Negative) Influenza Type B (PCR) (Negative) RSV (PCR) (Negative) 01/29/24 15:25 Blood Culture - Pending Blood 01/29/24 15:30 Urine Culture - Pending Urine - Reflex from Ua 01/29/24 15:02 Blood Culture - Pending Blood Intake and Output - 24 Hour Total 01/29/24 14:50 thru 01/29/24 18:07 Intake Total 60 Output Total 1100 Balance -1040 Weight 61 kg Intake: IV 60 Output: Urine 1100 Falls Risk Assessment History of Falls Previous History 01/29/24 16:19 Contributing Factors Impairments 01/29/24 16:19 Ambulatory Aids Uses ambulatory device + 01/29/24 16:19 Tubes/Lines With any additional score 01/29/24 16:19 Gait Evaluation W/any additional score 01/29/24 16:19 Fall Total Score 88 01/29/24 16:19 Level of Risk Maximum Risk 01/29/24 16:19 Notes 01/29/24 17:38 Nursing Notes by Nichole Stacy Nursing Note: Doctor yani asked me to ambulate patient with oxygen monitoring. Lowest pt stated was 86 percent on room air. Initialized on 01/29/24 17:38 - END OF NOTE v v v v v v v v v Sending and/or Receiving Nurses: Please use comment section below to note any information pertinent to the patient hand-off not included above. Information / Comments:Presented with increased SOB and large amount of weight gain, including 4+ pitting edema to BLE. Chest X-ray was negative, H/H 7.7/25.4. Current temp: 37.3, HR: 103, BP: 147/85, RR: 18, SPO2: 94% on RA. Alert and oriented x4, lungs are clear and heart rate regular. ER has administered 20mg lasix, 40meq PO potassium and 20meq potassium IV, with ceftriaxone administered this morning. Currently patient is standby assist. Report received from:Marcela Morrissey
--- NOTE | 2024-01-29 18:24 | W.PM.HP.N ---
Date of service: 01/29/24 Time of Service: 18:24 Assessment and Plan Assessment and plan (1) Acute on chronic HFrEF (heart failure with reduced ejection fraction): Assessment and plan: Mild global LV dysfunction estimated LVEF 40 to 45% with moderate mitral regurgitation and mild tricuspid regurgitation with normal RV size and normal RV systolic function. Patient has moderate biatrial enlargement, IVC is less than 2 cm however there is less than 50% inspiratory collapsibility suggesting estimated right atrial pressure 8 mm. Maximum transvalvular gradient across the tricuspid valve was 30 mm thus the estimated RVSP is 38 mm. VEXUS study was attempted however could not get adequate hepatic vein readings Doppler readings of the portal vein showed less than 30% pulsatility giving her a VEXUS grade 1 score mild venous congestion. Will continue with IV diuretics overnight and a dose of 20 mg IV every 8 hours. Do not need additional diuretic such as Diuril or Zaroxolyn. I will start her on spironolactone and try to get her on more goal-directed therapy for her CHF. It does not appear that she was on any home diuretics and probably will need at least some diuretics on a intermittent basis. Because of her orthostatic hypotension we will order towards avoiding excessive diuresis which may necessitate repeat POCUS exam to evaluate right-sided congestion. She seems to be in well-controlled atrial fibrillation and given her history of recurrent GI bleeding is appropriate to keep her off anticoagulation at this point. (2) Urinary tract infection: Status: Acute Assessment and plan: Recurrent UTIs. Blood and urine cultures are pending at this time for now is appropriate to treat with Rocephin but may need to modify antibiotics depending on whether or not she grows a resistant organism. Qualifiers: Hematuria presence: without hematuria Urinary tract infection type: acute cystitis Qualified Code(s): N30.00 - Acute cystitis without hematuria (3) Chronic anemia: Status: Chronic Assessment and plan: Patient has a chronic anemia receives monthly B12 injections and venofer every 3 months. I will recheck her levels in the morning along with repeat blood count. She may benefit from a transfusion of 1 unit of packed red cells. (4) Crohn's disease: Status: Chronic Qualifiers: Digestive disease complication type: without complication Gastrointestinal tract location: unspecified location Qualified Code(s): K50.90 - Crohn's disease, unspecified, without complications (5) B12 deficiency: Status: Chronic Assessment and plan: Recheck B12 level in the morning along with folic acid and iron studies. (6) Dementia: Status: Chronic Qualifiers: Dementia behavioral or psychological symptom: unspecified whether behavioral, psychotic, or mood disturbance or anxiety Dementia severity: unspecified severity Dementia type: unspecified type Qualified Code(s): F03.90 - Unspecified dementia, unspecified severity, without behavioral disturbance, psychotic disturbance, mood disturbance, and anxiety (7) DVT prophylaxis: Status: Acute Assessment and plan: Not a candidate for chemoprophylaxis therefore I have ordered PUNEET shira and SCDs. History of Present Illness History of Present Illness Chief Complaint: Dyspnea, bilateral leg edema Narrative: 83-year-old female with history of Crohn's disease followed by [facility] gastroenterology treated with Emgality who had a history of recurrent gastrointestinal bleeding of undetermined origin is required outpatient iron infusions every 3 months and has a history of B12 deficiency requiring B12 injections monthly. She has chronic atrial fibrillation with rate control with diltiazem and metoprolol and previously been on apixaban which was discontinued because of recurrent GI bleeding. She also has known orthostatic hypotension and she is post to wear compression stockings and take midodrine. Other comorbidities include hypothyroidism, cardiac cirrhosis, Alzheimer's dementia, essential hypertension, sensorineural hearing loss as well as visual impairment. She has had known heart failure with reduced ejection fraction. Her last hospitalization for heart failure was in July 2023 when she presented in rapid atrial fibrillation and acute heart failure hospitalized from 08/12/2023 to 08/18/2023 she was placed on goal-directed therapy with spironolactone and Entresto and diuretics but was over diuresed and had problems with worsening hypotension. Entresto had to be discontinued and she was placed on midodrine 5 mg 3 times daily at that time. She is also had recurrent UTIs. And she was last hospitalized here at [facility] for acute blood loss anemia from 01/07/2024 to 01/08/2024 after which her apixaban was discontinued. Maegan says she has not noticed any black or bloody stools however she has had progressive weight gain and progressive bilateral leg edema along with increasing exertional dyspnea and now is having some orthopnea. She has also had increased urinary frequency and in the emergency department she underwent evaluation found to have chronic anemia with a hemoglobin of 7.7 g which is down 0.5 g from her last hemoglobin 8.2 in December. She was also found to have evidence of UTI with positive nitrites and moderate amount of blood in her urine with 20-50 white cells and many bacteria. Blood and urine cultures were sent and she was started on Rocephin 1 g IV. Further evaluation found her to be in acute congestive heart failure with bilateral basilar rales although surprisingly her chest x-ray showed no infiltrates or pleural effusions and was read as no acute pulmonary findings. However POCUS exam of her lungs shows bibasilar B-lines without pleural effusions with sparing of her upper lung jurado. She has 3+ pitting bilateral edema from her feet and ankles up to just below her knees. She was given 20 mg of Lasix with a good urine output of over 1100 mL. We were asked by the ED department to admit her for treatment of her exacerbation of her CHF. Of note her last echo was performed in July and at that time demonstrated mild LV dysfunction with an EF of 42% by Price's biplane with mild global hypokinesis and normal right ventricular size and normal right ventricular systolic function with an RVSP of 31 mm with mild to moderate mitral regurgitation and mild tricuspid regurgitation. Patient denies any chest pain or pressure palpitations no syncope she is in the progressive bilateral leg edema is noted in fact she says that her legs were getting edematous when she was here last month and has gotten progressively worse over the last month. Review of Systems All systems reviewed & are unremarkable except as noted in HPI and below PFSH All Active Problems (Updated 01/29/24 @ 20:30 by Archie Cortes MD) DVT prophylaxis (Acute) Congestive heart failure (Chronic) Urinary tract infection (Acute) Edema due to congestive heart failure (Acute) Fever (Acute) Crohn's disease (Chronic) Terminal ileitis (Acute) Colitis (Acute) Chronic atrial fibrillation (Chronic) Heart failure with reduced ejection fraction (Chronic) Aspiration into airway (Acute) Pleural effusion, right (Acute) Pancytopenia (Acute) Cirrhosis (Acute) Thrombocytopenia (Chronic) Urinary incontinence (Acute) Inflammatory bowel disease (Chronic) [facility] Gastro Note 04/17/23 Metatarsalgia of left foot (Acute) Corns and callosities (Acute) Nail dystrophy (Acute) Vascular dementia (Chronic) Delusions (Acute) Alzheimer's dementia with agitation (Chronic) Palliative care patient (Acute) Dementia (Chronic) Essential hypertension (Chronic) Onychomycosis (Acute ~06/2021) Iron deficiency anemia (Chronic) Managed by [facility]. 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 Brent Castaneda, OD Astigmatism of both eyes [facility] report dated 04/17/18. Brent Castaneda, OD Grade 1 hypertensive retinopathy Meibomian gland dysfunction (MGD) [facility] exam dated 04/17/18. Brent Castaneda, OD Neck pain (09/04/17) Fatigue (09/04/17) Exacerbation of Crohn's disease Microcytic anemia Nonspecific ST-T wave electrocardiographic changes Dehydration Hypomagnesemia Asthma exacerbation Acute bronchitis Influenza A Surgical History H/O colonoscopy (04/07/18) [facility] Hysterectomy, Laproscopic Hiatal Hernia repair (09/11/17) Repair of umbilical hernia (09/11/17) Social History Smoking/Tobacco Use Status: Never Smoking risk assessment performed?: Yes Alcohol Intake: never Drug use: Never Substance use type: does not use Household members: children Housing: apartment Number of Children: 3 Current gender identity: female What is your relationship status?: Panel score (0-1 are the most socially isolated patients): 0 What type of physical activity do you participate in: none Seatbelt use: always Water heater temp set <120 deg: Yes Working smoke detector in home: Yes Fire extinguisher in home: Yes Carbon monox detector in home: Yes Firearms in home: No Do you feel safe at home: Yes Do you feel safe in your relationship?: Yes History History Para 3 Hx # Term Pregnancies Multiple births Hx # Pregnancies Ectopic pregnancies AB induced Hx Number of Living Children AB spontaneous Meds Allergies and Home Medications Allergies Allergy/AdvReac Type Severity Reaction Status Date / Time acetaminophen AdvReac Intermediate Headache Verified 01/29/24 15:02 ibuprofen AdvReac Intermediate Headache Verified 01/29/24 15:02 lactose intolerant AdvReac Intermediate cramps, Uncoded 01/29/24 15:02 diarrhea Home Medications Medication Instructions Recorded Confirmed Type balsalazide 750 mg capsule See Rx Instructions PO TID 05/14/19 01/16/24 History iron sucrose 200 mg iron/10 mL 300 mg IV [id number] 10/26/21 01/16/24 History intravenous solution (Venofer) syringe with cannula,disposabl 17 #3 SYRGS 10/22/22 01/16/24 Rx x 3 mL (BD Blunt Plastic Cannula) cyanocobalamin (vitamin B-12) 1,000 mcg IM monthly #3 vials 06/19/23 01/16/24 Rx 1,000 mcg/mL injection solution quetiapine 25 mg tablet See Rx Instructions PO .COMPLEX 06/27/23 01/16/24 Rx #135 tabs Size M incontinence briefs #40 ea 07/25/23 01/16/24 Rx galcanezumab-gnlm 120 mg/mL 120 mg subcut QMONTH #3 mL 07/25/23 01/16/24 Rx subcutaneous pen injector (Emgality Pen) triamcinolone acetonide 0.1 % 1 applic topical BID PRN R ear & 07/25/23 01/16/24 Rx topical cream hand dermatitis #15 grams atorvastatin 20 mg tablet 20 mg PO DAILY #90 tabs 09/11/23 01/16/24 Rx diltiazem HCl 120 mg 120 mg PO QPM #90 caps 09/11/23 01/16/24 Rx capsule,extended release 24 hr pantoprazole 40 mg tablet,delayed 40 mg PO BID #180 tabs 09/11/23 01/16/24 Rx release gabapentin 100 mg capsule 100 mg PO DAILY PRN headaches #30 09/19/23 01/16/24 Rx caps nystatin 100,000 unit/gram topical 1 applic topical QID groin folds 11/12/23 01/16/24 Rx cream rash #60 grams levothyroxine 50 mcg tablet 50 mcg PO DAILY #90 tabs 11/13/23 01/16/24 Rx mirtazapine 7.5 mg tablet See Rx Instructions .Route 01/01/24 01/16/24 Rx .COMPLEX #90 tabs metoprolol succinate 50 mg 50 mg PO DAILY #90 tabs 01/06/24 01/16/24 Rx tablet,extended release 24 hr (Toprol XL) ketoconazole 2 % topical cream 1 applic topical DAILY #30 grams 01/16/24 01/16/24 Rx empagliflozin 10 mg tablet See Rx Instructions .Route 01/20/24 Rx (Jardiance) .COMPLEX #90 tabs midodrine 5 mg tablet See Rx Instructions .Route 01/27/24 Rx .COMPLEX #90 tabs aspirin 81 mg tablet,delayed 81 mg PO DAILY 01/29/24 History release Exam Narrative Exam Narrative: Pleasant elderly white female sitting up at the bedside able to talk in complete sentences without dyspnea however with any ambulation such as going from the bed to the bathroom she gets dyspneic. HEENT she wears glasses. I did not test her visual acuity. Full extraocular motion intact sclera anicteric conjunctiva is pale Neck is supple normal carotid pulses other than being irregular JVD to about alf up her sternocleidomastoid muscle along with positive HJR Lungs bibasilar rales no rhonchi or wheezing upper lung jurado are clear Heart is irregularly irregular at a controlled rate with systolic murmur over the apex grade 3/6 Abdomen soft and nontender no palpable masses no bruits no organomegaly Lower extremities 3+ pitting edema from the knees down to the feet no peripheral cyanosis capillary refill intact Results Imaging Chest x-ray: report reviewed and image reviewed EKG: report reviewed and image reviewed (Atrial fibrillation rate of [address] abnormalities) Labs 01/29/24 15:08 01/29/24 15:08 Labs: Laboratory Results - last 24 hr 01/29/24 01/29/24 01/29/24 15:08 15:13 15:30 WBC 3.49 L RBC 3.02 L Hgb 7.7 L Hct 25.4 L MCV 84 MCH 25.5 L MCHC 30.3 L RDW 16.6 H Plt Count 111 L MPV 11.0 Immature Gran % 0.3 Neutrophils % 78.8 Lymphocytes % 10.3 Monocytes % 8.3 Eosinophils % 1.4 Basophils % 0.9 Nucleated RBC % 0.0 Absolute Neutrophils 2.75 Absolute Lymphocytes 0.36 L Absolute Monocytes 0.29 Absolute Eosinophils 0.05 Absolute Basophils 0.03 PT 11.3 H INR 1.1 APTT 26.7 VBG pH 7.38 VBG pCO2 38 L VBG pO2 34 VBG HCO3 22 L VBG Total CO2 22 L VBG O2 Saturation 61 VBG Base Excess -3 L VBG Lactate 1.2 Sodium 138 Potassium 3.1 L Chloride 106 Carbon Dioxide 23.9 Anion Gap 8.1 BUN 14 Creatinine 1.1 H Est GFR (CKD-EPI 2020) 49.55 Glucose 97 Calcium 8.2 L Total Bilirubin 1.35 H AST 66 H ALT 31 Alkaline Phosphatase 260 H Troponin I < 50 NT-Pro-B Natriuret Pep 2081 H Total Protein 6.5 Albumin 2.7 L Procalcitonin 1.3 TSH 1.86 Urine Color Yellow Urine Clarity Sl Cloudy Urine pH 5.5 Ur Specific [place] 1.015 Urine Protein 30 H Urine Ketones Negative Urine Blood Moderate H Urine Nitrite Positive H Urine Bilirubin Negative Urine Urobilinogen 0.2 Ur Leukocyte Esterase Small H Urine RBC 10-20 H Urine WBC 20-50 H Ur Epithelial Cells Rare Urine Crystals Negative Urine Bacteria Many Urine Mucus Trace Urine Other Rare Transitional Ur Culture Indicated? Yes Urine Glucose 500 H COVID-19 Source Nasopharynx SARS-CoV-2 (PCR) Negative Influenza Type A (PCR) Negative Influenza Type B (PCR) Negative RSV (PCR) Negative Last Vital Signs Temp 37.3 C 01/29/24 14:55 Pulse 103 H 01/29/24 16:31 Resp 18 01/29/24 16:31 BP 147/85 H 01/29/24 16:31 Pulse Ox 94 01/29/24 16:30 Time Spent Time spent with Patient: 55-74 minutes Time was spent: preparing to see the patient(eg.review tests), obtaining and/or reviewing separately otained hiistory, ordering medications,tests, procedures, referring, communicating with other health neonatal intensive care nurse, indepentently interpreting results, counseling the patient and care coordination
[2024-01-29 18:43] LABS: Troponin I < 50 ng/L (< or =60)
--- NOTE | 2024-01-29 20:33 | W.POCUS ---
Pocus Exam Limited Thoracic Lung Exam DATE OF EXAM: 01/29/24 TIME OF EXAM: 18:47 PROVIDER THAT PERFORMED THE STUDY: Archie Cortes REASON FOR EXAM: Shortness ofBreath VISUALIZED STRUCTURES: right anterior, left anterior, right lateral, left lateral, right posterior, left posterior, right subcostal and left subcostal PERTINENT FINDINGS/IMPRESSION: B-lines/left side thoracis location: lateral and posterior and B-lines/right side thoracis location: lateral and posterior; no pneumonia noted, no pleural effusion on the left and no pleural effusion on the right
--- NOTE | 2024-01-29 20:35 | POCUS_ITS ---
Pocus Exam Limited Cardiac Exam DATE OF EXAM: 01/29/24 TIME OF EXAM: 18:59 REASON FOR EXAM: Congestive heart failure and Dyspnea VISUALIZED STRUCTURES: four chambers, LVOT, aortic valve, mitral valve, Interventricular septum and IVC VIEW OBTAINED: Apical 4-Chamber, Parasternal long-axis, Parasternal short-axis and Subxiphoid PERTINENT FINDINGS/IMPRESSION: LV dysfunction :mild ( global); no IVC inspirato ry collapsability, No pericardial effusion, No plethoric IVC, No RV dilation and No RV dysfunction INCIDENTAL FINDINGS: moderate MR, mild TR, estimated RAP 8 mm, estimated RVSP 38 mm, VEXUS study attempted, not able to get adequate doppler signal from hepatic veins d/t respiratory movement, portal vein signal was adequate w/ <30% variability between systole and diastole, unable to get adequate renal vein signals to determine renal venous pulsatility. VEXUS grade 1 present, mild venous congestion. Exam complete
[2024-01-29] MEDS: Spironolactone 25 MG TAB PO (20:36)
[2024-01-29] MEDS: QUEtiapine 25 MG TAB PO (20:36)
[2024-01-29] MEDS: Pantoprazole 40 MG TABCR PO (20:37)
[2024-01-29] MEDS: Normal Saline Flush 10 ML SYR IVP (20:38)
[2024-01-29] MEDS: Mirtazapine 15 MG TAB 7.5 MG PO (20:38)
[2024-01-29] MEDS: dilTIAZem CD 120 MG CAPCR PO (20:41)
[2024-01-29] MEDS: Potassium Chloride 10 MEQ CAPCR 20 MEQ PO (20:44)
[2024-01-29 22:38] LABS: Troponin I < 50 ng/L (< or =60)
[2024-01-29] MEDS: Furosemide 40 MG/4 ML VIAL 20 MG IVP (22:54)
[2024-01-30] VITALS (13 sets, daily range): BP systolic 101–116; BP diastolic 65–85; PULSE 79–108; RESP 5–20; TEMP 36–36.9; O2SAT 93–100
--- NOTE | 2024-01-30 | DI.RAD_ITS ---
Exam(s) XR PORTABLE CHEST AP EXAM: XR PORTABLE CHEST AP CLINICAL HISTORY: Chest pain with acute shortness of breath TECHNIQUE: 2D digital imaging was performed. COMPARISON: CR XR PORTABLE CHEST AP from 01/29/2024 FINDINGS: Exam limited by poor pulmonary inflation. Leads overlie the chest. LUNGS: Increased densities noted at the left lung base. Findings could represent atelectasis versus infiltrate. There is overlying artifact related to overlying clothing or sheets.. Question of minim al blunting at the costophrenic angles could indicate tiny effusions. HEART: Normal size. AORTA: Normal diameter. Mild calcification. BONES: Unremarkable for age. Spine mainly obscured. Soft tissues: Unremarkable. IMPRESSION: Limited exam due to poor pulmonary inflation. Increased densities at left lung base, atelectasis mary alyse infiltrate. Question of tiny left pleural effusion. DATA REPOSITORY: RADIATION DOSE DELIVERED:
[2024-01-30] MEDS: Furosemide 40 MG/4 ML VIAL 20 MG IVP ×2 (06:16→13:50)
[2024-01-30] MEDS: Levothyroxine 50 MCG TAB PO (06:16)
[2024-01-30] MEDS: Normal Saline Flush 10 ML SYR IVP ×7 (06:17→23:33)
[2024-01-30] MEDS: Midodrine 2.5 MG TAB 5 MG PO ×3 (06:17→18:12)
[2024-01-30 07:01] LABS: HCT 25.7 % (36.0-46.0); HGB 7.7 g/dL (11.2-15.7); MCH 25.1 pg (27.0-33.0); MCV 84 fL (80-95); MPV 11.6 fL (8.0-11.0); Platelet Count 102 10^3/uL (130-400); RBC 3.07 10^6/uL (3.93-5.22); RDW 16.6 % (11.7-14.6); RDW-SD 51.3 fL; WBC 2.79 10^3/uL (4.4-10.8)
[2024-01-30 07:38] LABS: Absolute Basophil Count 0.06 10^3/uL (0.0-0.2); Absolute Eosinophil Count 0.03 10^3/uL (0.0-0.7); Absolute Monocyte Count 0.03 10^3/uL (0.1-0.8); Absolute Neutrophil Count 2.18 10^3/uL (1.2-6.7); Diff Comment Manual Differential; Hypochromasia 1+
[2024-01-30 07:40] LABS: Anion Gap 9.1 mmol/L (3-11); BUN 14 mg/dL (7-18); CO2 23.9 mmol/L (21.0-32.0); Calcium 8.1 mg/dL (8.5-10.1); Chloride 109 mmol/L (98-107); Estimated GFR 55.55 (mL/min/1.73m2); Ferritin 43 ng/mL (8-252); Glucose 94 mg/dL (74-106); Magnesium 1.9 mg/dL (1.8-2.4); Potassium 3.9 mmol/L (3.5-5.1); Sodium 142 mmol/L (136-145)
[2024-01-30 07:46] LABS: Iron 13 ug/dL (50-170); Total Iron Binding Capacity 247 ug/dL (250-450); Transferrin Sat 5 % (15-50)
[2024-01-30 07:54] LABS: Folate 18.4 ng/mL (8.6-20.0)
[2024-01-30 07:57] LABS: Vitamin B12 > 2000 pg/mL (193-986)
[2024-01-30] MEDS: cefTRIAXone 1 GM/50 ML BAG IVPB (08:20)
[2024-01-30] MEDS: Spironolactone 25 MG TAB PO (08:20)
[2024-01-30] MEDS: Empaglifozin 10 MG TAB PO (08:21)
[2024-01-30] MEDS: Metoprolol CR 50 MG TABCR PO (08:21)
[2024-01-30] MEDS: Atorvastatin 20 MG TAB PO (08:22)
[2024-01-30] MEDS: Pantoprazole 40 MG TABCR PO ×2 (08:22→20:44)
[2024-01-30] MEDS: Potassium Chloride 10 MEQ CAPCR 20 MEQ PO ×3 (08:22→20:43)
[2024-01-30] MEDS: QUEtiapine 25 MG TAB 12.5 MG PO (09:13)
[2024-01-30] MEDS: Nystatin CREAM 30 GM TUBE TP ×3 (09:14→16:05)
[2024-01-30] MEDS: Ketoconazole 2% CREAM 15 GM TUBE TP (09:14)
--- NOTE | 2024-01-30 11:27 | W.PM.PROGNOT ---
Date of Service Date of service: 01/30/24 Time of Service: 11:27 Assessment and Plan Assessment and plan (1) Acute on chronic HFrEF (heart failure with reduced ejection fraction): Assessment and plan: Continue IV diuretics along with oral spironolactone. (2) Urinary tract infection: Status: Acute Assessment and plan: Urine and blood cultures are still pending continue ceftriaxone.. Qualifiers: Urinary tract infection type: acute cystitis Hematuria presence: without hematuria Qualified Code(s): N30.00 - Acute cystitis without hematuria (3) Chronic anemia: Status: Chronic Assessment and plan: B12 levels greater than 2000 pg/mL and folate levels normal at 18.4 ng/mL. Transferrin saturation is low ferritin level is at the low end of normal TIBC is low and serum iron level is low. Will proceed with treatment with Venofer for iron deficiency (4) Crohn's disease: Status: Chronic Assessment and plan: Continue Emgality Qualifiers: Gastrointestinal tract location: unspecified location Digestive disease complication type: without complication Qualified Code(s): K50.90 - Crohn's disease, unspecified, without complications (5) B12 deficiency: Status: Chronic Assessment and plan: B12 level has normalized. Continue monthly treatments methylmalonic acid level and homocystine levels are pending. (6) Dementia: Status: Chronic Qualifiers: Dementia type: unspecified type Dementia severity: unspecified severity Dementia behavioral or psychological symptom: unspecified whether behavioral, psychotic, or mood disturbance or anxiety Qualified Code(s): F03.90 - Unspecified dementia, unspecified severity, without behavioral disturbance, psychotic disturbance, mood disturbance, and anxiety (7) DVT prophylaxis: Status: Acute Assessment and plan: Not a candidate for chemoprophylaxis therefore I have ordered PUNEET hose and SCDs. Subjective Subjective Interval history since last seen: Maegan states she feels much better today. Dyspnea has improved and leg edema has improved she is now able to lift her legs out of bed. Exam Narrative Exam Narrative: Maegan sitting up in bed she is alert and orient x 3 her son came in the room during my exam. Her lungs are clear anteriorly posteriorly just some faint crackles at the base no rhonchi or rales Heart is irregularly irregular but at a controlled rate with soft systolic murmur over the apex Abdomen soft nondistended nontender Lower extremities 2+ bilateral edema from her feet and ankles to about the mid tibia which is a marked improvement from yesterday where she had edema clear up to her knees and it was 3+ and very hard and firm whereas today it soft Objective Last Vital Signs Temp 36.6 C 01/30/24 08:18 Pulse 85 01/30/24 08:18 Resp 18 01/30/24 08:18 BP 116/85 01/30/24 08:18 Pulse Ox 98 01/30/24 08:18 Laboratory Results - last 24 hr 01/29/24 01/29/24 01/29/24 15:08 15:13 15:30 WBC 3.49 L RBC 3.02 L Hgb 7.7 L Hct 25.4 L MCV 84 MCH 25.5 L MCHC 30.3 L RDW 16.6 H Plt Count 111 L MPV 11.0 Immature Gran % 0.3 Neutrophils % 78.8 Lymphocytes % 10.3 Monocytes % 8.3 Eosinophils % 1.4 Basophils % 0.9 Nucleated RBC % 0.0 Absolute Neutrophils 2.75 Absolute Lymphocytes 0.36 L Absolute Monocytes 0.29 Absolute Eosinophils 0.05 Absolute Basophils 0.03 RBC Morphology Hypochromasia PT 11.3 H INR 1.1 APTT 26.7 VBG pH 7.38 VBG pCO2 38 L VBG pO2 34 VBG HCO3 22 L VBG Total CO2 22 L VBG O2 Saturation 61 VBG Base Excess -3 L VBG Lactate 1.2 Sodium 138 Potassium 3.1 L Chloride 106 Carbon Dioxide 23.9 Anion Gap 8.1 BUN 14 Creatinine 1.1 H Est GFR (CKD-EPI 2020) 49.55 Glucose 97 Calcium 8.2 L Magnesium Iron TIBC Transferrin % Sat Ferritin Total Bilirubin 1.35 H AST 66 H ALT 31 Alkaline Phosphatase 260 H Troponin I < 50 NT-Pro-B Natriuret Pep 2081 H Total Protein 6.5 Albumin 2.7 L Vitamin B12 Folate Procalcitonin 1.3 TSH 1.86 Urine Color Yellow Urine Clarity Sl Cloudy Urine pH 5.5 Ur Specific [place] 1.015 Urine Protein 30 H Urine Ketones Negative Urine Blood Moderate H Urine Nitrite Positive H Urine Bilirubin Negative Urine Urobilinogen 0.2 Ur Leukocyte Esterase Small H Urine RBC 10-20 H Urine WBC 20-50 H Ur Epithelial Cells Rare Urine Crystals Negative Urine Bacteria Many Urine Mucus Trace Urine Other Rare Transitional Ur Culture Indicated? Yes Urine Glucose 500 H COVID-19 Source Nasopharynx SARS-CoV-2 (PCR) Negative Influenza Type A (PCR) Negative Influenza Type B (PCR) Negative RSV (PCR) Negative 01/29/24 01/29/24 01/30/24 18:22 22:10 06:45 WBC 2.79 L RBC 3.07 L Hgb 7.7 L Hct 25.7 L MCV 84 MCH 25.1 L MCHC 30.0 L RDW 16.6 H Plt Count 102 L MPV 11.6 H Immature Gran % 0.0 Neutrophils % 78.0 Lymphocytes % 18.0 Monocytes % 1.0 Eosinophils % 1.0 Basophils % 2.0 Nucleated RBC % 0.0 Absolute Neutrophils 2.18 Absolute Lymphocytes 0.50 L Absolute Monocytes 0.03 L Absolute Eosinophils 0.03 Absolute Basophils 0.06 RBC Morphology See Below Hypochromasia 1+ PT INR APTT VBG pH VBG pCO2 VBG pO2 VBG HCO3 VBG Total CO2 VBG O2 Saturation VBG Base Excess VBG Lactate Sodium 142 Potassium 3.9 Chloride 109 H Carbon Dioxide 23.9 Anion Gap 9.1 BUN 14 Creatinine 1.0 Est GFR (CKD-EPI 2020) 55.55 Glucose 94 Calcium 8.1 L Magnesium 1.9 Iron 13 L TIBC 247 L Transferrin % Sat 5 L Ferritin 43 Total Bilirubin AST ALT Alkaline Phosphatase Troponin I < 50 < 50 NT-Pro-B Natriuret Pep Total Protein Albumin Vitamin B12 > 2000 H Folate 18.4 Procalcitonin TSH Urine Color Urine Clarity Urine pH Ur Specific [place] Urine Protein Urine Ketones Urine Blood Urine Nitrite Urine Bilirubin Urine Urobilinogen Ur Leukocyte Esterase Urine RBC Urine WBC Ur Epithelial Cells Urine Crystals Urine Bacteria Urine Mucus Urine Other Ur Culture Indicated? Urine Glucose COVID-19 Source SARS-CoV-2 (PCR) Influenza Type A (PCR) Influenza Type B (PCR) RSV (PCR) Reviewed Pertinent PMH: Yes Objective Narrative Objective Narrative: Bedside ultrasound performed IVC is still dilated and there is diminished respiratory excursion indicating a high right atrial pressures however portal vein Doppler is no longer pulsatile Time Spent with Patient Time Spent with Patient: 35-49 minutes Time was spent: preparing to see the patient(eg.review tests), ordering medications,tests, procedures, referring, communicating with other health director career services, indepentently interpreting results, counseling the patient and care coordination
[2024-01-30] MEDS: IRON SUCROSE COMPLEX 400 MG in Normal Saline 250 ML 100 MG IVPB (12:14)
--- NOTE | 2024-01-30 13:23 | PHA.REVIEW2 ---
Pharmacy Admission Review Admission Clinical Review Admission Pharmacy Review: DVT prophylaxis (Acute) Urinary tract infection (Acute) acetaminophen Adverse Reaction (Intermediate, Verified 01/29/24 15:02) Headache ibuprofen Adverse Reaction (Intermediate, Verified 01/29/24 15:02) Headache lactose intolerant Adverse Reaction (Intermediate, Uncoded 01/29/24 15:02) cramps, diarrhea Resuscitation Status DNR/DNI Height 5 ft Weight 58.7 kg Pharmacy Admission Review Renal Dosing Renal Dosing: BUN 14 mg/dL (7-18) 01/30/24 06:45 Creatinine 1.0 mg/dL (0.55-1.02) 01/30/24 06:45 Medications needing adjustments: Reviewed (CrCl 33.49 mL/min) List of meds needing interventions: Current medications are okay Anticoagulation Anticoagulation: Hgb 7.7 g/dL (11.2-15.7) L 01/30/24 06:45 Hct 25.7 % (36.0-46.0) L 01/30/24 06:45 Plt Count 102 10^3/uL (130-400) L 01/30/24 06:45 INR 1.1 (0.9-1.1) 01/29/24 15:08 Creatinine 1.0 mg/dL (0.55-1.02) 01/30/24 06:45 DVT Prophylaxis: Reviewed (TEDs/SCDs) Relevant Labs Relevant Labs: Sodium 142 mmol/L (136-145) 01/30/24 06:45 Potassium 3.9 mmol/L (3.5-5.1) 01/30/24 06:45 Chloride 109 mmol/L (98-107) H 01/30/24 06:45 Magnesium 1.9 mg/dL (1.8-2.4) 01/30/24 06:45 Electrolytes, C-Reactive P, ESR: Reviewed Cardiac Review Cardiac Review: Troponin I < 50 ng/L (< or =60) 01/29/24 22:10 NT-Pro-B Natriuret Pep 2081 pg/mL (<300) H 01/29/24 15:08 BP, HR, EF%: Reviewed (BP and HR WNL) QTc Review QTc: Reviewed (416 from 01/29/24) IV to PO Switch IV Medications: Reviewed (ceftriaxone and furosemide) Home Meds Home Med List reviewed: Intervened Relevent Home Meds Not ordered & why?: aspirin, B12 (monthly), Emgality (monthly), triamcinolone (PRN) Balsalazide entered as patients own - called nursing to see if this could be brought in for the patient. Waiting to hear back. Current Meds Current Medication Order Review: Reviewed Comments: Venofer 400mg administered today Pharmacy Antibiotic Review Relevant Labs: Relevant Labs 01/29/24 15:08 Procalcitonin 1.3 WBC 2.79 10^3/uL (4.4-10.8) L 01/30/24 06:45 Procalcitonin 1.3 ng/mL 01/29/24 15:08 Temperature 36.6 C Temperature 36.2 C Microbiology 01/29/24 15:30 Urine Culture - Preliminary Urine - Reflex from Ua Gram Positive Luiza,Mixed Gram Positive Luiza,Mixed#2 Pharmacy Antibiotic Activity: C/S review and Reviewed, no change Comments: Patient is on ceftriaxone, day 2, for UTI. Blood cultures pending, urine growing gram positive luiza.
--- NOTE | 2024-01-30 17:07 | INITIAL_ITS ---
Date of service: 01/30/24 Time of Service: 17:08 Care Management Initial Assmt Initial Assessment Reason for Hospitalization: Acute on chronic CHF (HFREF), UTI, anemia Functional Status/Living Situation Patient Presentation: Maegan was sitting up on the edge of her bed eating lunch when CM met with her. She stated that she is doing ok today, and feels better than when she arrived. She discussed her children, who are very supportive. One son, Gus, lives with her. She has a caregiver, Joshua, who helps out during the day a couple days a week, which is paid through [employer]. Her son Bryan and daughter in law Sushila visit frequently. She stated that per MD, if she continues to improve, she may be able to return home tomorrow. She stated that she was eating her lunch late because she has been busy meeting with MD. CM will continue to follow. Town of Residence: [facility] Resides with: Child (Gus) Caregiver/Guardian: Twice a week, Joshua, paid through [email or web address]. Natural Supports: Sons Gus, William and Bryan. Daughter in law, Sushila. Employment Status: Retired Instrumental Activities of Daily Living (ADLs): Requires support with Dishes/food prep, Groceries, Laundry and Transportation Medications Medication Management: No Issues/Barriers identified Physical Functioning/Mobility Assistive Device: FWW Advance Directives Advance Directives: Do you have an Advance Directive: Y 09/17/23 10:59 AD On File at [facility]: Y 09/17/23 10:59 Date Asked 01/29/24 01/29/24 14:57 AD Date Reviewed 01/07/24 01/08/24 07:56 COLST On File at [facility] Yes 09/17/23 10:59 COLST Date Scanned 08/31/21 09/17/23 10:59 Code Status Resuscitation Status DNR/DNI Insurance Coverage/Financial Issues Insurance: [employer]. TERES[place]. supplement. ACO Member: Yes Care Team Visit Care Team Role Provider Type Elizabeth Hathaway NP Primary Care Provider NURSE PRACTITIONER Dileep Holder DO Emergency Provider [facility] STAFF PHYSICIAN Archie Cortes MD Admit Provider [facility] STAFF PHYSICIAN Attending Provider Discharge Potential Discharge Needs: PCP F/U Appt Anticipated Barriers to Discharge: None Identified Patient/Family Education Needs: Review discharge instructions, discuss Ask Me Three Transportation: Private vehicle Plan: Anticipate Maegan will return home once medically cleared. Her son will drive her home via private vehicle. She will follow up with her PCP and discharge plan of care. CM will continue to follow. PFSH All Active Problems (Updated 01/29/24 @ 20:30 by Archie Cortes MD) DVT prophylaxis (Acute) Congestive heart failure (Chronic) Urinary tract infection (Acute) Edema due to congestive heart failure (Acute) Fever (Acute) Crohn's disease (Chronic) Terminal ileitis (Acute) Colitis (Acute) Chronic atrial fibrillation (Chronic) Heart failure with reduced ejection fraction (Chronic) Aspiration into airway (Acute) Pleural effusion, right (Acute) Pancytopenia (Acute) Cirrhosis (Acute) Thrombocytopenia (Chronic) Urinary incontinence (Acute) Inflammatory bowel disease (Chronic) [facility] Note 04/17/23 Metatarsalgia of left foot (Acute) Corns and callosities (Acute) Nail dystrophy (Acute) Vascular dementia (Chronic) Delusions (Acute) Alzheimer's dementia with agitation (Chronic) Palliative care patient (Acute) Dementia (Chronic) Essential hypertension (Chronic) Onychomycosis (Acute ~06/2021) Iron deficiency anemia (Chronic) Managed by [facility]. 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 Brent Leonel, OD Astigmatism of both eyes [facility] report dated 04/17/18. Brent Leonel, OD Grade 1 hypertensive retinopathy Meibomian gland dysfunction (MGD) [facility] exam dated 04/17/18. Brent Castaneda, OD Neck pain (09/04/17) Fatigue (09/04/17) Exacerbation of Crohn's disease Microcytic anemia Nonspecific ST-T wave electrocardiographic changes Dehydration Hypomagnesemia Asthma exacerbation Acute bronchitis Influenza A Surgical History H/O colonoscopy (04/07/18) [facility] Hysterectomy, Laproscopic Hiatal Hernia repair (09/11/17) Repair of umbilical hernia (09/11/17) Social History Smoking/Tobacco Use Status: Never Smoking risk assessment performed?: Yes Alcohol Intake: never Drug use: Never Substance use type: does not use Household members: children Housing: apartment Number of Children: 3 Current gender identity: female What is your relationship status?: Panel score (0-1 are the most socially isolated patients): 0 What type of physical activity do you participate in: none Seatbelt use: always Water heater temp set <120 deg: Yes Working smoke detector in home: Yes Fire extinguisher in home: Yes Carbon monox detector in home: Yes Firearms in home: No Do you feel safe at home: Yes Do you feel safe in your relationship?: Yes History History Para 3 Hx # Term Pregnancies Multiple births Hx # Pregnancies Ectopic pregnancies AB induced Hx Number of Living Children AB spontaneous SDOH(Care Management) Screening Will the Patient Participate in the Screening?: Declined to provide
[2024-01-30] MEDS: Mirtazapine 15 MG TAB 7.5 MG PO (20:43)
[2024-01-30] MEDS: QUEtiapine 25 MG TAB PO (20:43)
[2024-01-30] MEDS: dilTIAZem CD 120 MG CAPCR PO (20:43)
--- NOTE | 2024-01-30 21:00 | RT.EKG_ITS ---
APPROVED REPORT Exam: Resting ECG Reason for Exam: new chest pain, wheezing Patient Location: I HR:105 bpm ECG Measurements Heart Rate 105 AXIS DC [id number] P [id number] QRSd 68 QRS -8 QT 419 T 2 QTc 554 Conclusion Atrial fibrillation...? atrial activity Nonspecific ST-T abnormalities Prolonged QT interval...QTc >500mS
[2024-01-30] MEDS: MORPHine 2 MG/ML SYR IVP (22:18)
[2024-01-30] MEDS: Hydrocortisone SOD SUC. 100 MG VIAL IVP (22:25)
[2024-01-30] MEDS: Levalbuterol 0.63 MG/3 ML UPD VIAL UPD (22:28)
[2024-01-30 22:45] LABS: Troponin I < 50 ng/L (< or =60)
[2024-01-30] MEDS: Hydrocortisone SOD SUC. 100 MG VIAL (23:31)
--- NOTE | 2024-01-30 23:32 | CE_ITS ---
Date of service: 01/30/24 Time of Service: 23:32 Event Note: I was called by the floor charge nurse about this 83-year-old female patient who was admitted for anemia requiring transfusion and did just have a iron transfusion prior to the onset of chest pressure and pain which was as high as 9/10 with acute distress including dyspnea, slight diaphoresis and appearing more pale though she was pale from her acute anemia and blood loss. She does have a history of increased clotting and atrial fibrillation as well as heart failure and is being diuresed and off anticoagulation because of recurrent GI bleed with blood loss anemia. She was not hypotensive but was intermittently tachycardic with her distress. She also was requiring oxygen supplementation which was new. Portable chest x-ray was performed which showed no acute pneumothorax I did say to consider early CHF with patient having known CHF now b eing diuresed with decreased diuretics. This does not look like flash pulmonary edema. Considerations were for possible PE but patient's creatinine was elevated and she could not be on anticoagulation with low platelet count and recurrent GI bleed. Her son was called and he did reinforce the idea that she wants comfort measures only without aggressive interventions are really starting anticoagulation because of risk of bleeding and diet of anemia. Lab evaluation also did reveal continued elevation of her liver function test and ultrasound of the gallbladder and liver were ordered for the morning. Her exam was consistent with right upper quadrant abdominal pain and positive Mancia sign with an obese abdomen and otherwise soft without guarding or rebound. Her lungs were unchanged by exam with no focalizing rales or rhonchi. Her heart was irregularly irregular with known atrial fibrillation. She was borderline tachycardic. The patient was given morphine 2 mg IV every 30 minutes for pain control throughout the night and in the morning after 630 I checked on the patient and she was pain-free. She also was given 1 dose of hydrocortisone but no Benadryl for the possibility of a reaction to her iron infusion. I doubt this was a reaction to infusion but there is a phenomenon called Fishbane response to iron infusion which is not a true allergic reaction. Patient will have follow-up ultrasound of the abdomen and continue care as planned previously. Exam: XR Chest Exam date and time: 01/30/2024 11:49 PM Age: 83 years old Clinical indication: Shortness of breath; Chest wall pain; Additional info: Chest pain with acute shortness of breath TECHNIQUE: Imaging protocol: Radiologic exam of the chest. Views: 1 view. COMPARISON: CR XR PORTABLE CHEST AP 01/29/2024 3:43 PM FINDINGS: Lungs: There are low lung volumes. Mild atelectasis at the lung bases bilaterally. There is mild pulmonary venous congestion. Pleural spaces: Mild blunting of the left costophrenic angle may represent small pleural effusion. No evidence of pneumothorax. Heart/Mediastinum: The heart appears mildly enlarged. Vasculature: The aorta is mildly calcified. Bones/joints: The skeletal structures and soft tissues show no evidence of fracture or other acute processes. Other findings: Metallic object overlying the midline unclear whether this lies inside or outside the patient. Clinical correlation recommended. IMPRESSION: 1. Consider early congestive heart failure. 2. Metallic object overlying the midline unclear whether this lies inside or outside the patient. Clinical correlation recommended. Assessment/plan: Patient had acute chest pain and abdominal pain which most likely is gallbladder related and less likely a reaction to the iron infusion. Follow-up ultrasound abdomen and continue comfort measures. Her CHF and blood loss anemia appear to be stable but recurrent. Her son does want her at all measures to be kept comfortable and to minimize interventions as are the patient's wishes. The patient is mildly demented and very hard of hearing. She is a DNR/DNI but not on comfort measures only as of yet. Time Spent with Patient Time spent in critical care(minutes): 40 Time Spent Included: Coordination of care, Chart review, Documenting critically ill care, Time at immediate bedside and Discussing critically ill care with other medical staff
[2024-01-30] MEDS: Ondansetron 4 MG/2 ML VIAL IVP (23:33)
[2024-01-30 23:44] LABS: HCT 26.2 % (36.0-46.0); HGB 7.9 g/dL (11.2-15.7); MCH 25.6 pg (27.0-33.0); MCHC 30.2 % (32.0-36.0); MCV 85 fL (80-95); MPV 12.8 fL (8.0-11.0); Platelet Count 100 10^3/uL (130-400); RBC 3.08 10^6/uL (3.93-5.22); RDW 16.8 % (11.7-14.6); RDW-SD 51.8 fL; WBC 4.75 10^3/uL (4.4-10.8)
[2024-01-30 23:55] LABS: ALT 29 U/L (14-59); AST 67 U/L (15-37); Albumin 2.5 g/dL (3.4-5.0); Alkaline Phosphatase 301 U/L (46-116); Anion Gap 8.4 mmol/L (3-11); BUN 16 mg/dL (7-18); Bilirubin, Direct 0.7 mg/dL (0.0-0.2); Bilirubin, Total 1.15 mg/dL (0.2-1.0); CO2 23.6 mmol/L (21.0-32.0); CREATININE 1.3 mg/dL (0.55-1.02); Chloride 105 mmol/L (98-107); Estimated GFR 40.55 (mL/min/1.73m2); Glucose 120 mg/dL (74-106); Lipase 50 U/L (16-77); Sodium 137 mmol/L (136-145); Total Protein 6.1 g/dL (6.4-8.2)
--- NOTE | 2024-01-31 | DI.US_ITS ---
Exam(s) US LOWER EXTREMITY VENOUS RT EXAM: US LOWER EXTREMITY VENOUS RT CLINICAL HISTORY: right calf pain. TECHNIQUE: Lower extremity venous ultrasound performed using grayscale, color-flow, and spectral Do ppler analysis. COMPARISON: No exams were available for comparison FINDINGS: The common femoral, femoral and popliteal veins demonstrate normal compressibility, augmentation, and color Doppler. The posterior tibial veins are patent. No saphenous vein thrombosis or other superfi cial venous thrombosis is seen. No hematoma or Grajeda's cyst is seen. IMPRESSION: Negative lower extremity ultrasound. No evidence of DVT. DATA REPOSITORY:
--- NOTE | 2024-01-31 | DI.US_ITS ---
APPROVED REPORT EXAM: Comprehensive 2D, Doppler, and color-flow Echocardiogram Patient Location: In-Patient Room/Bed: 226 Doctor Chiropractic: Tamar Godoy RDCS (AE) Indications: Exacerbation of CHF Other Information Study Quality: Adequate. Technically limited study due to inability to position patient exam done sup ine. Conclusion Normal left ventricular wall thickness and chamber size. Ejection fraction is 50 to 55%. Wall motio n is normal Normal right ventricular size and function Left atrium is mildly dilated. Right atrial size is normal There is no structural or hemodynamically significant valvular disease Estimated right ventricular systolic pressure is 24 mmHg Ascending aorta measures 3.38 cm Wall motion Left Ventricle The left ventricle is normal size. The overall left ventricular systolic function appears normal. The re is normal left ventricular wall thickness. There is normal LV segmental wall motion. There is no v entricular septal defect visualized. LVEF is 52%. Right Ventricle The right ventricle is normal size. The right ventricular systolic function is normal. Atria Left atrium is mildly dilated. The right atrium size is normal. The interatrial septum is intact with no evidence for an atrial septal defect. Aortic Valve The aortic valve is normal in structure. Aortic valve is trileaflet. There is no aortic valvular sten osis. No aortic regurgitation is present. Mitral Valve The mitral valve is normal in structure. No evidence of mitral valve stenosis. Trace to mild mitral r egurgitation. Tricuspid Valve The tricuspid valve is normal in structure. There is no tricuspid valve stenosis. Mild tricuspid reg urgitation. The RVSP is 24.2 mmHg. Pulmonic Valve The pulmonary valve is normal in structure. There is no pulmonic valvular stenosis. There is no pulmo kiki valvular regurgitation. Great Vessels The aortic root is normal in size. The ascending aorta is mildly dilated. Aortic arch is not well vis ualized. IVC is normal in size and collapses >50% with inspiration. Pericardium There is no pericardial effusion. 2D Dimensions IVSD d PLAX 0.79 cm F: 0.6-1.0 Ao Root d 2.91 cm F: 2.7 - 3.3 LVPW d PLAX 0.76 cm F: 0.6 - 1.0 Ao Asc Diam d 3.38 cm F: 2.3 - 3.1 LVID d PLAX 3.79 cm F: 3.8 - 5.2 LVDs 2.79 cm F: 2.2 - 3.5 LV EF Teichholz 52.7 % FS 26.55 % LV EDV (Teich) 61.7 mL LV ESV (Teich) 29.2 mL M-Mode TAPSE 1.96 cm (M/F) >1.7 Auto EF LV EDV A4C 63.7 mL LV EDV A2C 59.9 mL LV EDV BP 62.5 mL LV ESV A4C 31.2 mL LV ESV A2C 29.5 mL LV ESV BP 31.0 mL LVEF(%) A4C 51.1 % LVEF(%) A2C 50.7 % LVEF(%) BP 50.4 % LV SV A4C 32.6 ml LV SV A2C 30.4 ml LV SV BP 31.5 ml LV CO A4C 2.6 L/min LV CO A2C 2.4 L/min LV CO BP 2.5 L/min HR A4C 80.54 BPM HR A2C 78.40 BPM LV EDV Index (BP) LA Volume LA Length A4C 5.3 cm LA Length A2C 5.8 cm LA Area A4C s 18.55 cm2 LA Area A2C s 20.78 cm2 LA Vol A4C A-L 55.19 mL LA Vol A2C A-L 63.51 mL LA Vol Biplane A-L 61.8 mL LA Vol/BSA A4C A-L LA Vol/BSA A2C A-L LA Vol/BSA BP A-L 40.4 mL/m2 LA Vol A4C MOD 50.8 mL LA Vol A2C MOD 60.6 mL LA Vol BP MOD 57.9 mL RA Volume RA Area A4C 13.1 cm2 RA ESV A4C (A-L) 32.0mL RA Vol/BSA A4C A-L RA Length A4C 4.6 cm RA ESV A4C (MOD) 30.6mL LV Diastology MV E' medial 0.092 (>0.07 m/s) MV E Vmax 1.00 (0.4-1.3 m/s) MV E/E' MED 10.81 (<14) MV E' lateral 0.128 (>0.1 m/s) MV E/E' LAT 7.79 (<14) MV E' Average 0.110 m/s MV E/E'(average) 9.06 Aortic Valve AoV Vmax 1.15 m/s LVOT Vmax 0.73 m/s AoV Peak Grad 5.3 mmHg LVOT Peak Grad 2.1 mmHg AoV Area (Vmax) 2.08 cm2 LVOT VTI 0.152 m AoV VTI 0.252 m LVOT Mean Grad 1.1 mmHg AoV Mean Thompson. 0.81 m/s LVOT SV 49.96 mL AoV Mean Grad 3.0 mmHg LVOT Diam s 2.00 cm AoV Area (VTI) 1.98 cm2 Velocity Ratio 0.63 Mitral Valve MV DT 170 (160-240 msec) MV Vmax TIPS 1.03 m/s MV Mean Grad 1.8 (<2mmHg) MV VTI 0.261 m Pulmonary Valve PV Vmax 1.04 (0.5-1.5 m/s) RVOT Vmax 0.81 m/s PV Peak Grad 4.3 mmHg RVOT Peak Gr. 2.6 mmHg PV Mean Thompson 0.72 m/s RVOT VTI 0.150 m PV Mean Grad 2.3 mmHg RVOT Mean Gr. 1.3 mmHg Tricuspid Valve RA Pressure 3.00 mmHg TR Vmax 2.31 m/s TV S' 0.12 m/s TR Peak Grad 21.2 mmHg RVSP (TR) 24.2 mmHg
--- NOTE | 2024-01-31 | DI.CT_ITS ---
Exam(s) CT ABDOMEN PELVIS W EXAM: CT ABDOMEN PELVIS W CLINICAL HISTORY: RUQ abdominal pain TECHNIQUE: Imaging Protocol: Axial computed tomography images with coronal and sagittal reformatted images were created and reviewed. CONTRAST MATERIAL: Intravenous: Omnipaque 350 Contrast volume:100 mL Oral: Yes COMPARISON: CT CT CHEST/ABD/PEL W from 09/15/[address] ABDOMEN PELVIS W from 12/09/2023 US US ABDOMEN LIMITED from 01/31/2024 FINDINGS: ABDOMEN: Lung Bases: Stable postsurgical changes of the gastroesophageal junction which may represent a fundop lication. Please correlate clinically. Mild bronchiectatic changes are seen in the lung bases, left greater than right. There is scarring in the lung bases. No focal consolidating infiltrates. Liver: No suspicious hepatic masses are seen. There is a lobulated contour of the liver suggesting h epatic cirrhosis. Portal, Superior Mesenteric, and Splenic Veins: Unremarkable. There collateral vessel seen in the upp er abdomen particularly in the left upper quadrant. Gallbladder and Biliary Tract: No cholelithiasis. The common duct measures 1.1 cm. This is stable c ompared to the prior examination. Pancreas: Normal density, no abnormal calcifications or inflammatory process. Spleen: The spleen is at the upper limits of normal in size. Adrenals: No masses seen. Kidneys: Normal size, contour and axis. No radiodense stones or obstructive uropathy. There are stabl e bilateral renal cysts. This includes a stable hyperdense cyst in the left kidney. No follow-up is recommended. Abdominal Aorta: Abdominal portion non-dilated. Atherosclerotic calcification is present. Bowel: There is a large amount of stool throughout the colon suggesting constipation. There is mild thickening of the wall of the cecum and ascending colon. There is no evidence of bowel obstruction. No evidence of appendicitis. Peritoneal Cavity: There is a small amount of pelvic ascites. There is a small amount of perihepatic /perisplenic and pericholecystic fluid. No free air. Lymph Nodes: Within normal limits. Bones: Within normal limits for the patient's age. Postsurgical changes are seen at L5-S1 with the d iscectomy and laminectomy. Soft Tissues: There is mild edema seen in the soft tissues in the abdomen wall. There are fat and fl uid containing bilateral inguinal hernias. PELVIS: Bladder: Symmetric distention, no gross wall thickening. Reproductive Organs: Status post hysterectomy. Lymph Nodes: Within normal limits. Bones: Within normal limits for the patient's age. IMPRESSION: 1. Bowel wall thickening involving the cecum and ascending colon suspicious for infectious or inflamm atory colitis. 2. Lobulated contour of the liver suspicious for hepatic cirrhosis. Collateral vessels are seen in t he upper abdomen and there has developed a small amount of abdominal pelvic ascites since the prior e xamination. Please correlate with patient's liver function and clinical history. 3. Mild edema has developed in the subcutaneous tissues in the abdomen and pelvis. RADIATION DOSE DELIVERED: 962.28mGy.cm Total DLP DATA REPOSITORY: All CT scans at this facility are submitted to the National Radiology Data Registry (NRDR) Dose Index Registry (DIR) with the [employer] [place] [employer] [employer] (ACR). RADIATION OPTIMIZATION: All CT scans at this facility use at least one of these dose optimization te chniques: automated exposure control; mA and/or kV adjustment per patient size (includes targeted exa ms where dose is matched to clinical indication); or iterative reconstruction.
[2024-01-31 00:01] LABS: BE (Venous) 1 mmol/L (-2-3); HCO3 (Venous) 25 mmol/L (23-28); O2 Sat (Venous) 81 %; TCO2 (Venous) 24 mmol/L (24-29); pCO2 (Venous) 37 mmHg (41-51); pH (Venous) 7.44 (7.31-7.41); pO2 (Venous) 45 mmHg
[2024-01-31] MEDS: Polyethylene Glycol 3350 17 GM PACKET PO (00:02)
[2024-01-31] MEDS: MORPHine 2 MG/ML SYR IVP ×2 (00:03→01:26)
[2024-01-31] MEDS: Normal Saline Flush 10 ML SYR IVP ×5 (00:05→20:46)
--- NOTE | 2024-01-31 01:15 | DI.VRAD_ITS ---
PROCEDURE INFORMATION: Exam: XR Chest Exam date and time: 01/30/2024 11:49 PM Age: 83 years old Clinical indication: Shortness of breath; Chest wall pain; Additional info: Chest pain with acute shortness of breath TECHNIQUE: Imaging protocol: Radiologic exam of the chest. Views: 1 view. COMPARISON: CR XR PORTABLE CHEST AP 01/29/2024 3:43 PM FINDINGS: Lungs: There are low lung volumes. Mild atelectasis at the lung bases bilaterally. There is mild pulmonary venous congestion. Pleural spaces: Mild blunting of the left costophrenic angle may represent small pleural effusion. No evidence of pneumothorax. Heart/Mediastinum: The heart appears mildly enlarged. Vasculature: The aorta is mildly calcified. Bones/joints: The skeletal structures and soft tissues show no evidence of fracture or other acute processes. Other findings: Metallic object overlying the midline unclear whether this lies inside or outside the patient. Clinical correlation recommended. IMPRESSION: 1. Consider early congestive heart failure. 2. Metallic object overlying the midline unclear whether this lies inside or outside the patient. Clinical correlation recommended. Dictated and Authenticated by: William Saavedra MD. Ordering:RONEN Kennedy MD
[2024-01-31 01:16] VITALS: BP 116/68; PULSE 83; RESP 16; TEMP 36; O2SAT 97
[2024-01-31 04:14] VITALS: BP 99/88; PULSE 70; RESP 18; TEMP 35.8; O2SAT 94
[2024-01-31] MEDS: Levothyroxine 50 MCG TAB PO (06:22)
[2024-01-31] MEDS: Midodrine 2.5 MG TAB 5 MG PO ×3 (06:22→18:17)
[2024-01-31 07:14] VITALS: BP 107/65; PULSE 90; RESP 20; TEMP 36.6; O2SAT 97
[2024-01-31 07:17] LABS: HCT 24.5 % (36.0-46.0); HGB 7.6 g/dL (11.2-15.7); MCH 25.4 pg (27.0-33.0); MCV 82 fL (80-95); MPV 11.5 fL (8.0-11.0); RBC 2.99 10^6/uL (3.93-5.22); RDW 16.7 % (11.7-14.6); RDW-SD 49.6 fL; WBC 4.49 10^3/uL (4.4-10.8)
[2024-01-31 07:27] LABS: Anion Gap 6.3 mmol/L (3-11); BUN 14 mg/dL (7-18); CO2 25.7 mmol/L (21.0-32.0); Chloride 105 mmol/L (98-107); Estimated GFR 55.55 (mL/min/1.73m2); Glucose 139 mg/dL (74-106); Magnesium 1.7 mg/dL (1.8-2.4); Potassium 4.3 mmol/L (3.5-5.1); Sodium 137 mmol/L (136-145)
[2024-01-31] MEDS: Potassium Chloride 10 MEQ CAPCR 20 MEQ PO ×3 (07:34→21:06)
[2024-01-31] MEDS: Atorvastatin 20 MG TAB PO (07:35)
[2024-01-31] MEDS: Empaglifozin 10 MG TAB PO (07:35)
[2024-01-31] MEDS: Spironolactone 25 MG TAB PO (07:35)
[2024-01-31] MEDS: Pantoprazole 40 MG TABCR PO ×2 (07:35→20:43)
[2024-01-31] MEDS: Metoprolol CR 50 MG TABCR PO (07:35)
[2024-01-31] MEDS: QUEtiapine 25 MG TAB 12.5 MG PO (07:41)
[2024-01-31] MEDS: Furosemide 20 MG/2 ML VIAL IVP ×2 (07:42→16:53)
[2024-01-31] MEDS: cefTRIAXone 1 GM/50 ML BAG IVPB (07:46)
--- NOTE | 2024-01-31 08:00 | DI.US_ITS ---
Exam(s) US ABDOMEN LIMITED EXAM: US ABDOMEN LIMITED CLINICAL HISTORY: Right upper quadrant quadrant pain radiating TECHNIQUE: Ultrasound abdomen performed using standard protocol. COMPARISON: CT CT ABDOMEN PELVIS W from 12/09/2023 FINDINGS: LIVER: Normal size and echogenicity. No focal liver lesions are seen. GALLBLADDER: No evidence of cholelithiasis. No evidence of wall thickening. No pericholecystic fluid identified. QUIÑONES'S SIGN: Negative. BILIARY SYSTEM: Common bile duct again dilated to 9-13 millimeters, similar to prior CT. Right kidney: No evidence of renal calculi. No evidence of hydronephrosis. No renal mass or cyst iden tified. PANCREAS: Normal where visualized. ABDOMINAL AORTA AND IVC: Visualized portions normal caliber. ASCITES: None seen. IMPRESSION: No evidence of cholelithiasis or gallbladder wall thickening. Stable mild extrahepatic biliary dilat ation. DATA REPOSITORY:
--- NOTE | 2024-01-31 08:16 | NUR.NOTE ---
Nursing Note: In my morning assessment, pt had right posterior and medial knee pain with a positive Trisha's sign, which was reported to hospitalist immediately. She has an abdominal US this morning, very soon. Asked hospitalist if we could add a DVT study. Hospitalist stated he will go look at her.
[2024-01-31 08:26] LABS: Absolute Lymphocyte Count 0.13 10^3/uL (1.2-3.4); Absolute Monocyte Count 0.04 10^3/uL (0.1-0.8); Absolute Neutrophil Count 4.31 10^3/uL (1.2-6.7); Atypical Lymphocytes % 0 %; Bands % 0 %; Diff Comment Manual Differential
[2024-01-31 08:27] LABS: Hypochromasia 2+; Platelet Count 101 10^3/uL (130-400)
--- NOTE | 2024-01-31 08:39 | W.PM.PROGNOT ---
Date of Service Date of service: 01/31/24 Time of Service: 08:39 Assessment and Plan Assessment and plan (1) Acute on chronic HFrEF (heart failure with reduced ejection fraction): Assessment and plan: patient has had net negative fluid balance of 8400 mL but I am sure that this is not accurate as her intake does not seem to be accurate. however her wt has gone down almost 4 kg. Patient prior echo from 6 months ago demonstrated LVEF to be mildly reduced at 42% w/ global hypokinesis and moderate MR w/ normal RV size and fxn w/ mild TR. I will repeat her echo to see if there has been any significant change but by my pocus study I do not think there has been any significant deterioration. Her troponin I have been negative this admission and were repeated last night and remain negative. Her LFT and bilirubin have been asssumed to be passive liver congestion from her HF however she may have another process such as acute GB although when I did her VEXUS study she did not seem to have any noticeable gall stones but I was not particulary looking at her biliary tree w/ the VEXUS. (2) Right calf pain: Status: Acute Assessment and plan: I did a bedside POCUS venous compression study of her right leg from groin to the popliteal space and did not find any DVT, the popliteal vein, SFV, CFV and GSV were all compressible and there was augmentation of flow in the popliteal vein w/ compression of the calf although this did cause her pain. (3) RUQ abdominal pain: Status: Acute Assessment and plan: unclear etiology. await formal US of her abdomen, if unrevealing then proceed w/ CT scan of the abdomen (4) Elevated transaminase level: Status: Acute Assessment and plan: assumed to be hepatic congestion from CHF however may be secondary to biliary process, check US and if negative proceed w/ CT abdomen as noted above. (5) Elevated bilirubin: Status: Acute Assessment and plan: as above (6) Urinary tract infection: Status: Acute Assessment and plan: blood cultures are no growth to date but urine culture w/ mixed gram positive luiza and gram negative rods, continue ceftriaxone Qualifiers: Urinary tract infection type: acute cystitis Hematuria presence: without hematuria Qualified Code(s): N30.00 - Acute cystitis without hematuria (7) Chronic anemia: Status: Chronic Assessment and plan: B12 levels greater than 2000 pg/mL and folate levels normal at 18.4 ng/mL. Transferrin saturation is low ferritin level is at the low end of normal TIBC is low and serum iron level is low. Will proceed with treatment with Venofer for iron deficiency day #2 venofer 400 mg, will complete total of 1000 mg (8) Crohn's disease: Status: Chronic Assessment and plan: Continue Emgality Qualifiers: Gastrointestinal tract location: unspecified location Digestive disease complication type: without complication Qualified Code(s): K50.90 - Crohn's disease, unspecified, without complications (9) B12 deficiency: Status: Chronic Assessment and plan: B12 level has normalized. Continue monthly treatments methylmalonic acid level and homocystine levels are pending. (10) Dementia: Status: Chronic Qualifiers: Dementia type: unspecified type Dementia severity: unspecified severity Dementia behavioral or psychological symptom: unspecified whether behavioral, psychotic, or mood disturbance or anxiety Qualified Code(s): F03.90 - Unspecified dementia, unspecified severity, without behavioral disturbance, psychotic disturbance, mood disturbance, and anxiety (11) DVT prophylaxis: Status: Acute Assessment and plan: Not a candidate for chemoprophylaxis therefore I have ordered PUNEET jesuse and SCDs. await formal venous duplext to r/o DVT, if positive then consider IVC filter given her hx of GIB Subjective Subjective Interval history since last seen: Maegan complained of RUQ abdominal pains last night. Dr. Carr evaluated her and repeated her LFT which shows persistence mild elevation of her transaminases and bilirubin. She had not been complaining of abdominal pains yesterday even when I did a VEXUS exam, so this is a new symptom for her. He ordered RUQ abdominal US for this morning. While she denies any abdominal pain for me this morning and states that is better, I was able to elicit RUQ tenderness w/ palpation but did not elicit a Mancia sign. However, nursing reports her to have positive Trisha sign and the patient acknowledges she has right calf tenderness despite the fact thaat her bilateral leg edema has markedly improved w/ diuresis. Exam Narrative Exam Narrative: Maegan is lying in bed, does not appear to be in any acute distress, not dyspneic, on room air (SPO2 97%) Lungs: clear anteriorly and posteriorly Heart: irregularly irregular but controlled rate Abdomen: nondistended, soft, normal bowel sounds, w/ RUQ tenderness to deep palpation, but no Mancia sign, some voluntary guarding but no rebound tenderness Extremities: marked improvement in her lower extremity edema now down to trace edema in her ankles and feet and none in her tibia, calfs are soft but she definitey has tenderness in right calf w/ compression and w/ dorsiflextion of her right foot she has reproducible pain in the calf c/w + Trisha sign Objective Last Vital Signs Temp 36.6 C 01/31/24 07:14 Pulse 90 01/31/24 07:14 Resp 20 01/31/24 07:14 BP 107/65 01/31/24 07:14 Pulse Ox 97 01/31/24 07:14 Laboratory Results - last 24 hr 01/30/24 01/30/24 01/31/24 22:11 23:55 06:19 WBC 4.75 4.49 RBC 3.08 L 2.99 L Hgb 7.9 L 7.6 L Hct 26.2 L 24.5 L MCV 85 82 MCH 25.6 L 25.4 L MCHC 30.2 L 31.0 L RDW 16.8 H 16.7 H Plt Count 100 L 101 L MPV 12.8 H 11.5 H Immature Gran % 0.0 Neutrophils % 96.0 Band Neutrophils % 0 Lymphocytes % 3.0 Atypical Lymphs % 0 Monocytes % 1.0 Eosinophils % 0.0 Basophils % 0.0 Nucleated RBC % 0.0 Absolute Neutrophils 4.31 Absolute Lymphocytes 0.13 L Absolute Monocytes 0.04 L Absolute Eosinophils 0.00 Absolute Basophils 0.00 RBC Morphology See Below Hypochromasia 2+ VBG pH 7.44 H VBG pCO2 37 L VBG pO2 45 VBG HCO3 25 VBG Total CO2 24 VBG O2 Saturation 81 VBG Base Excess 1 Sodium 137 137 Potassium 4.0 4.3 Chloride 105 105 Carbon Dioxide 23.6 25.7 Anion Gap 8.4 6.3 BUN 16 14 Creatinine 1.3 H 1.0 Est GFR (CKD-EPI 2020) 40.55 55.55 Glucose 120 H 139 H Calcium 8.0 L 8.0 L Magnesium 1.7 L Total Bilirubin 1.15 H Conjugated Bilirubin 0.7 H AST 67 H ALT 29 Alkaline Phosphatase 301 H Troponin I < 50 Total Protein 6.1 L Albumin 2.5 L Lipase 50 Time Spent with Patient Time Spent with Patient: >50 minutes Time was spent: preparing to see the patient(eg.review tests), ordering medications,tests, procedures, referring, communicating with other health mall plant caretaker, indepentently interpreting results, counseling the patient and care coordination
--- NOTE | 2024-01-31 08:39 | W.POCUS ---
Pocus Exam Limited Vascular Exam DATE OF EXAM: 01/31/24 TIME OF EXAM: 08:39 PROVIDER THAT PERFORMED THE STUDY: Archie Cortes Vascular Exam: Right lower extremity (right calf pain) REASON FOR EXAM: Concern for DVT right lower extremity and Right calf pain VISUALIZED STRUCTURES: Right common femoral vein, Right popliteal vein, Right superficial femoral vein and Right greater saphenous vein PERTINENT FINDINGS/IMPRESSION: Compressible veins right leg and No apparent abnormalities Exam Complete
[2024-01-31 08:47] LABS: Lab Add On Test DONE
[2024-01-31] MEDS: Magnesium Gluconate 500 MG TAB PO (08:51)
--- NOTE | 2024-01-31 08:59 | PT.INNT ---
PT Notes Visit Reasons: acute on chronic CHF (HFREF),UTI,anemia Attempted to see patient for PT evaluation this morning. Spoke with SUKUMAR Del Rosario. Patient on her way for an abdominal US and US to check for DVT secondary to calf pain with + Homans. Was on eliquis but changed to ASA, then stopped the ASA. Will check with nursing later today.
[2024-01-31 09:17] LABS: Troponin I < 50 ng/L (< or =60)
[2024-01-31 09:23] LABS: Transferrin 193 mg/dL (201-352)
[2024-01-31 11:08] LABS: Homocysteine 9.2 umol/L (5.0-13.9)
[2024-01-31 11:30] VITALS: BP 102/72; PULSE 86; RESP 16; TEMP 37.2; O2SAT 98
[2024-01-31] MEDS: Nystatin CREAM 30 GM TUBE TP ×3 (13:07→20:52)
--- NOTE | 2024-01-31 14:46 | W.PALLCONSUL ---
Date of service: 01/31/24 Time of Service: 14:47 History of Present Illness Narrative: Maegan was seen in her room for Palliative continuity of care. She was admitted 2 days ago. She reports, my legs were huge. She was also SOB. She is not sure why she became so fluid overloaded, she does not recall any dietary indiscretion. She is feeling better, she is still experiencing some SOB when she gets OOB. Her edema is improved but not back to her baseline yet. She feels fatigued. She had a back ache and CP yesterday but none today. Her appetite is good, she reports she is eating well. No N/V today. She feels constipated. Her skin is pale. Her Hgb is low at 7.6. She has been admitted in the recent past for anemia. She will start PT today. She has been admitted 3x in the last 3 months and 5 times since the beginning of the year (6 months). She is not opposed to being in the hospital. We discussed hospice as an option for when she is ready for that. She was happy to hear about it and will consider it as an option in the future. Bryan was a patient at [facility] for about 2 months and just came home yesterday with a new ostomy so he and Sushila have not been able to help as much. Her son, Gus has been doing more (she lives with Gus). Her son, William and his have been helping more recently. Assessment and Plan Assessment and plan (1) Heart failure with reduced ejection fraction: Status: Chronic (2) Inflammatory bowel disease: Status: Chronic (3) Vascular dementia: Status: Chronic Qualifiers: Dementia behavioral or psychological symptom: with anxiety Dementia severity: moderate Qualified Code(s): F01.B4 - Vascular dementia, moderate, with anxiety (4) Chronic atrial fibrillation: Status: Chronic (5) Crohn's disease: Status: Chronic Qualifiers: Digestive disease complication type: without complication Gastrointestinal tract location: unspecified location Qualified Code(s): K50.90 - Crohn's disease, unspecified, without complications (6) Palliative care patient: Status: Acute Assessment and plan: Maegan is a very pleasant 83 year old female who is a palliative patient. She was seen for continuity of care. She has been admitted to the hospital 3 times in the last 3 months and 5 times in the last 6 months. She is currently admitted for CHF exacerbation. We discussed that frequent hospitalizations often indicate some overall decline. We reviewed hospice as an option when she does not want to continue to be seen at/admitted to the hospital anymore, however, at this time, she does not mind being in the hospital. She is feeling better overall but not back to baseline. She plans to go back home with her son, Gus. Her other children help out with her care as well. She thinks she might need a bedside commode at home. She has previously established that she is a DNR/DNI. F/u with Palliative as scheduled, sooner as needed. Review of Systems Narrative: PER HPI PFSH All Active Problems (Updated 01/31/24 @ 08:50 by Archie Cortes MD) Right calf pain (Acute) RUQ abdominal pain (Acute) Elevated bilirubin (Acute) Elevated transaminase level (Acute) DVT prophylaxis (Acute) Congestive heart failure (Chronic) Urinary tract infection (Acute) Edema due to congestive heart failure (Acute) Fever (Acute) Crohn's disease (Chronic) Terminal ileitis (Acute) Colitis (Acute) Chronic atrial fibrillation (Chronic) Heart failure with reduced ejection fraction (Chronic) Aspiration into airway (Acute) Pleural effusion, right (Acute) Pancytopenia (Acute) Cirrhosis (Acute) Thrombocytopenia (Chronic) Urinary incontinence (Acute) Inflammatory bowel disease (Chronic) [facility] Gastro Note 04/17/23 Metatarsalgia of left foot (Acute) Corns and callosities (Acute) Nail dystrophy (Acute) Vascular dementia (Chronic) Delusions (Acute) Alzheimer's dementia with agitation (Chronic) Palliative care patient (Acute) Dementia (Chronic) Essential hypertension (Chronic) Onychomycosis (Acute ~06/2021) Iron deficiency anemia (Chronic) Managed by [facility]. 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 Brent Castaneda, OD Astigmatism of both eyes [facility] report dated 04/17/18. Brent Castaneda, OD Grade 1 hypertensive retinopathy Meibomian gland dysfunction (MGD) [facility] exam dated 04/17/18. Brent Castaneda, OD Neck pain (09/04/17) Fatigue (09/04/17) Exacerbation of Crohn's disease Microcytic anemia Nonspecific ST-T wave electrocardiographic changes Dehydration Hypomagnesemia Asthma exacerbation Acute bronchitis Influenza A Surgical History H/O colonoscopy (04/07/18) [facility] Hysterectomy, Laproscopic Hiatal Hernia repair (09/11/17) Repair of umbilical hernia (09/11/17) Social History Smoking/Tobacco Use Status: Never Smoking risk assessment performed?: Yes Alcohol Intake: never Drug use: Never Substance use type: does not use Household members: children Housing: apartment Number of Children: 3 Current gender identity: female What is your relationship status?: Panel score (0-1 are the most socially isolated patients): 0 What type of physical activity do you participate in: none Seatbelt use: always Water heater temp set <120 deg: Yes Working smoke detector in home: Yes Fire extinguisher in home: Yes Carbon monox detector in home: Yes Firearms in home: No Do you feel safe at home: Yes Do you feel safe in your relationship?: Yes History History Para 3 Hx # Term Pregnancies Multiple births Hx # Pregnancies Ectopic pregnancies AB induced Hx Number of Living Children AB spontaneous Exam Narrative Exam Narrative: General: very pleasant, elderly female, laying in bed with HOB elevated. Her skin is pale, she appears fatigued. HEENT: normocephalic, atraumatic, EOMI, mmm. Neck: supple Cardiovascular: irregularly irregular, nontachycardic. Respiratory: respirations appear even and unlabored while laying in bed. GI: +BS, abd soft, nondistended, nontender on palpation. Extremities: +1 pitting edema, moves all 4 extremities freely. Results Last Vital Signs Temp 37.2 C 01/31/24 11:30 Pulse 86 01/31/24 11:30 Resp 16 01/31/24 11:30 BP 102/72 01/31/24 11:30 Pulse Ox 98 01/31/24 11:30 Labs 01/31/24 06:19 01/31/24 06:19 Labs: Laboratory Results - last 24 hr 01/30/24 01/30/24 01/31/24 22:11 23:55 06:19 WBC 4.75 4.49 RBC 3.08 L 2.99 L Hgb 7.9 L 7.6 L Hct 26.2 L 24.5 L MCV 85 82 MCH 25.6 L 25.4 L MCHC 30.2 L 31.0 L RDW 16.8 H 16.7 H Plt Count 100 L 101 L MPV 12.8 H 11.5 H Immature Gran % 0.0 Neutrophils % 96.0 Band Neutrophils % 0 Lymphocytes % 3.0 Atypical Lymphs % 0 Monocytes % 1.0 Eosinophils % 0.0 Basophils % 0.0 Nucleated RBC % 0.0 Absolute Neutrophils 4.31 Absolute Lymphocytes 0.13 L Absolute Monocytes 0.04 L Absolute Eosinophils 0.00 Absolute Basophils 0.00 RBC Morphology See Below Hypochromasia 2+ VBG pH 7.44 H VBG pCO2 37 L VBG pO2 45 VBG HCO3 25 VBG Total CO2 24 VBG O2 Saturation 81 VBG Base Excess 1 Sodium 137 137 Potassium 4.0 4.3 Chloride 105 105 Carbon Dioxide 23.6 25.7 Anion Gap 8.4 6.3 BUN 16 14 Creatinine 1.3 H 1.0 Est GFR (CKD-EPI 2020) 40.55 55.55 Glucose 120 H 139 H Calcium 8.0 L 8.0 L Magnesium 1.7 L Total Bilirubin 1.15 H Conjugated Bilirubin 0.7 H AST 67 H ALT 29 Alkaline Phosphatase 301 H Troponin I < 50 < 50 Total Protein 6.1 L Albumin 2.5 L Lipase 50 Add-On Test Request 01/31/24 09:19 WBC RBC Hgb Hct MCV MCH MCHC RDW Plt Count MPV Immature Gran % Neutrophils % Band Neutrophils % Lymphocytes % Atypical Lymphs % Monocytes % Eosinophils % Basophils % Nucleated RBC % Absolute Neutrophils Absolute Lymphocytes Absolute Monocytes Absolute Eosinophils Absolute Basophils RBC Morphology Hypochromasia VBG pH VBG pCO2 VBG pO2 VBG HCO3 VBG Total CO2 VBG O2 Saturation VBG Base Excess Sodium Potassium Chloride Carbon Dioxide Anion Gap BUN Creatinine Est GFR (CKD-EPI 2020) Glucose Calcium Magnesium Total Bilirubin Conjugated Bilirubin AST ALT Alkaline Phosphatase Troponin I Total Protein Albumin Lipase Add-On Test Request DONE
--- NOTE | 2024-01-31 14:57 | CHAPLAIN ---
Maegan was in bed, said she was very tired and hoping to nap, when I visited. She is a member of the [facility] [employer]. I offered to call the adventist and let them know she is here, but she said they likely know already. I will continue to visit.
[2024-01-31 15:10] VITALS: BP 99/64; PULSE 76; RESP 18; TEMP 36.8; O2SAT 97
--- NOTE | 2024-01-31 15:45 | PT.INIE ---
PT Notes Visit Reasons: acute on chronic CHF (HFREF),UTI,anemia Physical Therapy Inpatient Initial Evaluation Date: 01/31/2024 Referring Doctor: Archie Cortes MD PT CONSULT: Limited ability Precautions: Fall. Standard. Activity as tolerated. L AFO on when OOB. Patient Profile/Admitting Diagnosis: Maegan is an 83-year-old female refrred to PT fro limited mobility. She presented to the ED on 01/29/2024 due to generalized weakness, hypotension, and dizziness. Patient is admitted for management of acute on chronic HFrEF, R calf pain, R UQ abdominal pain, elevated transaminase level, elevated bilirubin, UTI, chroninc nemia, Vut B12 deficiency, and dementia. PMHX: All Active Problems (Updated 01/29/24 @ 20:30 by Archie Cortes MD) DVT prophylaxis (Acute) Congestive heart failure (Chronic) Urinary tract infection (Acute) Edema due to congestive heart failure (Acute) Fever (Acute) Crohn's disease (Chronic) Terminal ileitis (Acute) Colitis (Acute) Chronic atrial fibrillation (Chronic) Heart failure with reduced ejection fraction (Chronic) Aspiration into airway (Acute) Pleural effusion, right (Acute) Pancytopenia (Acute) Cirrhosis (Acute) Thrombocytopenia (Chronic) Urinary incontinence (Acute) Inflammatory bowel disease (Chronic) [facility] Note 04/17/23 Metatarsalgia of left foot (Acute) Corns and callosities (Acute) Nail dystrophy (Acute) Vascular dementia (Chronic) Delusions (Acute) Alzheimer's dementia with agitation (Chronic) Palliative care patient (Acute) Dementia (Chronic) Essential hypertension (Chronic) Onychomycosis (Acute ~06/2021) Iron deficiency anemia (Chronic) Managed by [facility]. 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 Brent Castaneda, OD Astigmatism of both eyes [facility] report dated 04/17/18. Brent Castaneda, OD Grade 1 hypertensive retinopathy Meibomian gland dysfunction (MGD) [facility] exam dated 04/17/18. Brent Castaneda, OD Neck pain (09/04/17) Fatigue (09/04/17) Exacerbation of Crohn's disease Microcytic anemia Nonspecific ST-T wave electrocardiographic changes Dehydration Hypomagnesemia Asthma exacerbation Acute bronchitis Influenza A Surgical History H/O colon[facility] (04/07/18[facility], [facility] Hiatal Hernia repair (09/11/17) Repair of umbilical hernia (09/11/17) Social History/Home Situation: Lives with son in an apartment building with a ramp to and 2-3 step to the entrance door. Modified independent with all indoor mobility performance using front-wheeled walker. Son works during the day. Gets MOW. Able to do dishes and self care. Son does the laundry downstairs. Has not negotiated down the steps at home for a long time due to safety reason. Has an AFO for the L foot drop. Equipment Owned/DME: [employer] AFO Subjective: Politely requested not to wear AFO for now as she is swollen in the L eg and foot. Denied headache, chest pain, and dizziness throughout session. Feels slow and weak. Anxious about getting the 2 bottles of fluid given to her for her CT scan. Loved the warm blankets given to her after sh was assisted onto chair at end of session. Objective: General Observation: resting in bed. Telemetry monitoring in place. Mental Status: Alert and oriented as to person, place and purpose. Pain: Denied Vital Signs: Closely monitored by nursing staff ROM: Right Upper Extremity: Shoulder Flexion WFL. Shoulder abduction WFL. Elbow flexion WFL. Wrist flexion WFL. Functional opening and closing of hand WFL. Left Upper Extremity: Shoulder Flexion WFL. Shoulder abduction WFL. Elbow flexion WFL. Wrist flexion WFL. Functional opening and closing of hand WFL. Right Lower Extremity: Hip flexion WFL. Hip abduction WFL. Knee flexion WFL. Ankle dorsiflexion WFL. Ankle plantarflexion WFL. Left Lower Extremity: Hip flexion WFL. Hip abduction WFL. Knee flexion WFL. Ankle dorsiflexion none. Ankle plantarflexion WFL. Strength: Right Upper Extremity: Shoulder flexors 4-/5. Shoulder abductors 4-/5. Elbow flexors 4-/5. Elbow extensors 4-/5. Sales Account Director strong. Left Upper Extremity: Shoulder flexors 4-/5. Shoulder abductors 4-/5. Elbow flexors 4-/5. Elbow extensors 4-/5. Sales Account Director strong. Right Lower Extremity: Hip flexors 4-/5. Hip abductors 4-/5. Knee flexors 4-/5. Knee extensors 4-/5. Ankle dorsiflexors 4-/5. Ankle plantarflexors 4-/5. Left Lower Extremity: Hip flexors 4-/5. Hip abductors 4-/5. Knee flexors 4-/5. Knee extensors 4-/5. Ankle dorsiflexors 0/5. Ankle plantarflexors 4-/5. Bed Mobility/Transfers: Minimal verbal cueing cueing provided for use of B hands as needed for support, movement sequence, AD management, and and posture to reduce fall risk and minimize pain report. Supine to sit stand by assist Sit to stand contact guard assist with FWW Stand to sit contact guard assist with FWW Bed to bedside contact guard assist with FWW Gait: 40 feet using FWW with contact guard assist without AFO on L. Foot slap apparent on L. Minimal verbal cueing provided for reducing excessive hip and knee flexion on the L which has been a habit she formed due to the L foot drop. Denied headache, chest pain, and dizziness throughout session. Balance: Static Sitting: Normal Dynamic Sitting: Normal Static Standing: Fair Dynamic Standing: Fair Special Tests: Mobility Limitations Standardized Measure [facility] AM-PAC 6 clicks Basic Mobility Inpatient Short Form: Raw Score: 18 CMS Score: 47% deficit Informed Consent/Education: Patient was instructed in purpose of PT consult and plan of care. Agreeable to proceed with established PT POC to achieve personal goals. Assessment: Patient requires the use of a front wheeled walker and left AFO for all mobility ADL performance to maximize independence and reduce fall risk. Patient presents with clinical signs and symptoms consistent with current/admitting diagnoses that have resulted to mobility limitations, gait instability, generalized weakness, and overall ADL decline as demonstrated by the following impairment level findings: 1. Decreased strength to B UE/LE major muscle groups 2. Impaired sitting/standing balance 3. Impaired activity tolerance 4. Limitation of joint range of motion in L ankle due to pre-existing foot drop (chronic) Impairments are contributing to the following functional limitations: 1. Difficulty with ambulation without assistive device 2. Increased completion time for mobility ADL performance 3. Increased risk for falls Patient is assessed as a 87350 moderate complexity based on the following: History: 83-year-old female with past medical history as indicated above Examination: Demonstrable impairment in strength, balance, and mobility level with underlying impairments and functional limitations as exhibited above as well as deficit score of 47% utilizing the [facility] Mobility Inpatient Short Form Presentation: Evolving Decision Makin moderate complexity Goals: Goals X1 week 1. Supine-Sit independent 2. Sit-Supine independent 3. Sit-Stand independent 4. Stand-Sit independent with FWW 5. Bed-Chair independent with FWW 6. Chair-Bed independent with FWW 7. Independent gait on level surface with use of FWW for at least 300 feet without report of pain nor dyspnea 8. Independent stair negotiation while holding onto B rails for at least 2 steps without report of pain nor dyspnea 9. Independent with home exercise program 10. Good static and dynamic standing balance/tolerance Plan of Care/Treatment Plan: 1-2x/day, 7 days/week x 1 week. Plan of care has been reviewed with the [employer] providing the service under Physical Therapy direction. Initiate Physical Therapy intervention for pain management as needed, strengthening, bed mobility, transfers, gait, stairs, balance training, and use of assistive device. --Progress mobility, strength, and balance using appropriate devices. DISCHARGE RECOMMENDATIONS: [] Home with no services [] [X] Home with services. Patient will benefit from home health PT services in order to progress mobility level using least restrictive assistive ambulatory device, assess home safety, identify additional equipment needs, and establish a functional maintenance program that will increase ability of patient to remain at home. [] Home with outpatient PT [] [] SNF for continued rehabilitation [] [] Longterm Care [] [] SNF versus LTC based on ability to participate and progress [] TREATMENT CODE/TIME: 72972 x 28 minutes1 unit beginning (15:45-16:13). Thank you for the opportunity to participate in the care of this patient. Anuradha Alvarez PT, DPT, CLT [facility] [place], [place]
[2024-01-31] MEDS: Breeza Beverage 473 ML BTL PO ×2 (16:14→16:17)
[2024-01-31] MEDS: Omnipaque 350 MG/ML 50 ML BTL IJ (16:14)
[2024-01-31] MEDS: Omnipaque 350 MG/ML 100 ML BTL PO ×2 (16:23→17:50)
--- NOTE | 2024-01-31 17:46 | CMPROGNOTE_ITS ---
Date of service: 01/31/24 Time of Service: 17:47 Care Management Progress Note Progress Note Text Progress Note Text: Maegan was sitting up in her chair when CM met with her; CM reviewed options for bedside commode; anticipate Maegan will purchase privately through [employer] or [employer]. She appeared to be in great spirits and was giggling. Discharge Potential Discharge Needs: Consult Consult Services Needed: Palliative and PT Evaluation Anticipated Barriers to Discharge: None Identified Patient/Family Education Needs: Review discharge instructions, discuss Ask Me Three Transportation: Private vehicle (Son to transport. ) Plan: Maegan will return home when ready per MD, she will resume private caregivers and have new orders for [facility] PT. She stated that if she leaves Saturday, her son William will transport her home and if she discharges Saturday, her son Gus will transport her home. She will follow up with her PCP and plan of care as prescribed. SDOH(Care Management) Screening Will the Patient Participate in the Screening?: Declined to provide Anticipated HH Services Anticipated HH Services at Discharge [facility] Needed, PT. Anticipated Date of Discharge: 02/01/24. Following Provider: Elizabeth Oro.
[2024-01-31] MEDS: Normal Saline - Diluent 50 ML VIAL IJ (17:52)
[2024-01-31 19:20] VITALS: BP 99/63; PULSE 84; RESP 18; TEMP 37.3; O2SAT 99
--- NOTE | 2024-01-31 20:36 | NUR.NOTE ---
Medication Note at 2034 on 01/31/24 upon returning pt to bed from restroom. a medication cup with 2 white pills found on the patients bedside table. Upon doing a Pill ID via website [email or web address]. It is evident the patient did not take her 1800 midodrine 5mg. In this situation I did discard x2 midodrine tablets and x2 new 2.5mg midodrine will be dispensed by me and given at the 1999 Noc shift time. Nursing Note:
[2024-01-31] MEDS: Mirtazapine 15 MG TAB 7.5 MG PO (20:43)
[2024-01-31] MEDS: QUEtiapine 25 MG TAB PO (20:43)
[2024-01-31] MEDS: dilTIAZem CD 120 MG CAPCR PO (20:44)
[2024-02-01] VITALS (7 sets, daily range): BP systolic 96–123; BP diastolic 56–77; PULSE 67–81; RESP 18; TEMP 36.1–37; O2SAT 95–98
[2024-02-01 06:29] LABS: Abs Immature Grans 0.02 10^3/uL (0.0-0.06); HGB 7.5 g/dL (11.2-15.7); MCH 25.3 pg (27.0-33.0); MCHC 31.3 % (32.0-36.0); MCV 81 fL (80-95); MPV 12.4 fL (8.0-11.0); Nucleated RBC 0.7 % (0.0-0.3); Platelet Count 124 10^3/uL (130-400); RBC 2.96 10^6/uL (3.93-5.22); RDW 16.9 % (11.7-14.6); RDW-SD 49.4 fL; WBC 5.51 10^3/uL (4.4-10.8)
[2024-02-01] MEDS: Midodrine 2.5 MG TAB 5 MG PO ×3 (06:29→18:28)
[2024-02-01] MEDS: Levothyroxine 50 MCG TAB PO (06:29)
[2024-02-01 06:54] LABS: Anion Gap 5.5 mmol/L (3-11); BUN 16 mg/dL (7-18); CO2 26.5 mmol/L (21.0-32.0); Calcium 8.3 mg/dL (8.5-10.1); Chloride 107 mmol/L (98-107); Estimated GFR 55.55 (mL/min/1.73m2); Glucose 101 mg/dL (74-106); NT-proBNP 1242 pg/mL (<300); Potassium 3.9 mmol/L (3.5-5.1); Sodium 139 mmol/L (136-145)
[2024-02-01 07:06] LABS: ALT 50 U/L (14-59); AST 172 U/L (15-37); Albumin 2.3 g/dL (3.4-5.0); Alkaline Phosphatase 355 U/L (46-116); Bilirubin, Direct 1.4 mg/dL (0.0-0.2); Bilirubin, Total 1.91 mg/dL (0.2-1.0)
[2024-02-01 07:07] LABS: Absolute Lymphocyte Count 0.83 10^3/uL (1.2-3.4); Absolute Monocyte Count 0.28 10^3/uL (0.1-0.8); Atypical Lymphocytes % 4 %; Diff Comment Manual Differential
[2024-02-01 07:08] LABS: Hypochromasia 2+
[2024-02-01 07:09] LABS: Poikilocytes 2+
[2024-02-01] MEDS: cefTRIAXone 1 GM/50 ML BAG IVPB (07:44)
[2024-02-01] MEDS: Normal Saline Flush 10 ML SYR IVP ×2 (07:45→20:53)
[2024-02-01] MEDS: Pantoprazole 40 MG TABCR PO ×2 (07:45→20:51)
[2024-02-01] MEDS: Metoprolol CR 50 MG TABCR PO (07:46)
[2024-02-01] MEDS: Atorvastatin 20 MG TAB PO (07:46)
[2024-02-01] MEDS: Magnesium Gluconate 500 MG TAB PO (07:46)
[2024-02-01] MEDS: Potassium Chloride 10 MEQ CAPCR 20 MEQ PO (07:46)
[2024-02-01] MEDS: QUEtiapine 25 MG TAB 12.5 MG PO (07:47)
[2024-02-01] MEDS: Empaglifozin 10 MG TAB PO (07:48)
[2024-02-01] MEDS: Nystatin CREAM 30 GM TUBE TP ×4 (07:56→21:04)
[2024-02-01] MEDS: Ketoconazole 2% CREAM 15 GM TUBE TP (07:56)
[2024-02-01] MEDS: Spironolactone 25 MG TAB PO (09:00)
--- NOTE | 2024-02-01 09:58 | PT.INTREAT ---
PT Notes Visit Reasons: acute on chronic CHF (HFREF),UTI,anemia Date: 02/01/24 PRECAUTIONS: Fall. Standard. Activity as tolerated. L AFO on when OOB. SUBJECTIVE: Pt in bed when approached for therapy this morning, agrees to participating with session OBJECTIVE: ? IV line on left antecubital?, Telemetry in place ? PAIN: none VITALS: monitored by nursing? Therapeutic Activities 76315: Direct one-on-one instruction in dynamic activities to improve functional performance. ?? BED MOBILITY/TRANSFERS? Rolling L/R: CGA Supine-sit: ?CGA ? Sit-supine: ?CGA ? Sit-stand: ?min A? Stand-sit: ?CGA ? Bed-Chair:? CGA ? Chair-bed: CGA Provided skilled cues and instruction on performance and technique throughout. Gait Training 84316: Direct one-on-one instruction and skilled instruction in: Movement sequencing Turning and movement with proper form Provided verbal cues for equipment management and technique Provided instruction in gait pattern Patient education regarding pacing and breathing techniques to maximize activity tolerance? GAIT? Assistive Device: FWW ? Weight bearing: FWB Assist: ?CGA? Distance:??50'x2, 100'x1? Deviation: ?Hemiplegic gait, foot slap ? ASSESSMENT:?Pt able to tolerated gait training activity given enough rest break in between distances. pt cue for deep breathing when resting. PLAN: Continue with balance training, global strengthening and general conditioning for improved safety, mobility and activity tolerance until pt is ready for DC. TREATMENT CODE/TIME: [id number], [id number] 25mins (9:25-9:50am)
[2024-02-01] MEDS: Furosemide 40 MG/4 ML VIAL IVP (11:21)
--- NOTE | 2024-02-01 11:43 | W.PM.PROGNOT ---
Date of Service Date of service: 02/01/24 Time of Service: 11:43 Assessment and Plan Assessment and plan (1) Acute on chronic HFrEF (heart failure with reduced ejection fraction): Assessment and plan: Patient has HFmEF, she previously had LVEF of 42% with mild global hypokinesis and normal RV size and function but w/ mild to mod. MR and mild TR, this was noted on her echo from 07/29/23 Now her latest echo from 01/31/24 has shown improvement w/ LVEF 50 TO 55% and again normal RV size and function and no structurally or hemodynamically signficant valve disease, her RVSP is normal at 24. Overall her congestion has improved in that her dyspnea and bilateral lower leg edema has improved. I think she still needs a little more diuresis prior to discharge. She is fearful of having to return if she has not adequately diuresed. (2) Right calf pain: Status: Resolved Assessment and plan: I did a bedside POCUS venous compression study of her right leg from groin to the popliteal space and did not find any DVT, the popliteal vein, SFV, CFV and GSV were all compressible and there was augmentation of flow in the popliteal vein w/ compression of the calf although this did cause her pain. Formal DVT study was negative (3) RUQ abdominal pain: Status: Acute Assessment and plan: patient has some inflammatory changes in the ascending colon and cecum suggestive of colitis. She has known Crohn's disease but is not chronically on any meds for this. I think her abdominal pains were d/t obstipation as this resolved w/ having a BM yesterday. She was found to have some cirrhosis of her liver and she has developed some ascites. I am sure that this contributed to her bilateral leg edema. I was going to give her short course of prednisone for her inflammatory bowel changes seen in her ascending colon however she is not having any symptoms that I can attribute to this, i.e. no diarrhea or hematochezia and her abdominal pain has resolved. She should follow up w/ GI. (4) Elevated transaminase level: Status: Acute Assessment and plan: patient is exhibiting cirrhotic change in the liver (lobulated contour), I will have her follow up w/ her GI specialist at [facility] [place]. (5) Elevated bilirubin: Status: Acute Assessment and plan: as above (6) Urinary tract infection: Status: Acute Assessment and plan: blood cultures are no growth to date but urine culture w/ mixed gram positive luiza and gram negative rods, continue ceftriaxone Urine culture + for Klebsiella oxytoca, sensitive to Rocephin. (but also sensitve to most antibiotics except ampicillin). Can dc her ceftriaxone for cefpoxime. Qualifiers: Urinary tract infection type: acute cystitis Hematuria presence: without hematuria Qualified Code(s): N30.00 - Acute cystitis without hematuria (7) Chronic anemia: Status: Chronic Assessment and plan: B12 levels greater than 2000 pg/mL and folate levels normal at 18.4 ng/mL. Transferrin saturation is low ferritin level is at the low end of normal TIBC is low and serum iron level is low. Will proceed with treatment with Venofer for iron deficiency day #1 venofer 400 mg, will complete total of 1000 mg (8) Crohn's disease: Status: Chronic Assessment and plan: not on any immune modulating drugs for Crohns but , Emgality is for her migraine headaches. Given her inflammatory changes in her ascending colon, I think that she should follow up w/ her GI specialist, she denies having any bloody BM. I was going to give her short course of prednisone but since she is not having diarrhea nor hematochezia and her abdominal pain resolved w/ having a BM, I think she ought to see GI and consided c-scope Qualifiers: Gastrointestinal tract location: unspecified location Digestive disease complication type: without complication Qualified Code(s): K50.90 - Crohn's disease, unspecified, without complications (9) B12 deficiency: Status: Chronic Assessment and plan: B12 level has normalized. Continue monthly treatments methylmalonic acid level and homocystine levels are pending. (10) Dementia: Status: Chronic Assessment and plan: stable, continue her Seroquel and Remeron Qualifiers: Dementia type: unspecified type Dementia severity: unspecified severity Dementia behavioral or psychological symptom: unspecified whether behavioral, psychotic, or mood disturbance or anxiety Qualified Code(s): F03.90 - Unspecified dementia, unspecified severity, without behavioral disturbance, psychotic disturbance, mood disturbance, and anxiety (11) DVT prophylaxis: Status: Acute Assessment and plan: Not a candidate for chemoprophylaxis therefore I have ordered PUNEET silva and ORLYs. await formal venous duplext to r/o DVT, if positive then consider IVC filter given her hx of GIB Subjective Subjective Interval history since last seen: Maegan overall says she feels better but still feels fatigued. Abdominal pains have resolved after a BM yesterday. Dyspnea is improved but still gets winded after walking. She did walk around the nursing unit for P.T. and did not need supplemental oxygen. Exam Narrative Exam Narrative: Maegan is sitting up in her chair, alert and oriented, no distress Lungs: bilateral rales from bases to lower third, upper jurado are clear Heart: irregularly irregular but controlled rate (telemetry demonstrates afib at controlled rate 60's to 80's) Abdomen: nondistended soft, nontender to even deep palpation, no guarding Legs/feet: 1+ pitting edema but much improved over past couple days Objective Last Vital Signs Temp 36.8 C 02/01/24 07:32 Pulse 75 02/01/24 07:32 Resp 18 02/01/24 07:32 BP 103/72 02/01/24 07:32 Pulse Ox 98 02/01/24 07:32 Laboratory Results - last 24 hr 01/30/24 02/01/24 06:45 05:55 WBC 5.51 RBC 2.96 L Hgb 7.5 L Hct 24.0 L MCV 81 MCH 25.3 L MCHC 31.3 L RDW 16.9 H Plt Count 124 L MPV 12.4 H Immature Gran % 0.0 Neutrophils % 78.0 Lymphocytes % 11.0 Atypical Lymphs % 4 Monocytes % 5.0 Eosinophils % 0.0 Basophils % 0.0 Nucleated RBC % 0.7 H Absolute Neutrophils 4.30 Absolute Lymphocytes 0.83 L Absolute Monocytes 0.28 Absolute Eosinophils 0.00 Absolute Basophils 0.00 RBC Morphology See Below Hypochromasia 2+ Poikilocytosis 2+ Sodium 139 Potassium 3.9 Chloride 107 Carbon Dioxide 26.5 Anion Gap 5.5 BUN 16 Creatinine 1.0 Est GFR (CKD-EPI 2020) 55.55 Glucose 101 Calcium 8.3 L Magnesium 2.0 Transferrin 193 L Total Bilirubin 1.91 H Conjugated Bilirubin 1.4 H AST 172 H ALT 50 Alkaline Phosphatase 355 H NT-Pro-B Natriuret Pep 1242 H Total Protein 6.0 L Albumin 2.3 L Homocysteine 9.2 Time Spent with Patient Time Spent with Patient: 35-49 minutes Time was spent: preparing to see the patient(eg.review tests), ordering medications,tests, procedures, referring, communicating with other health neonatal intensive care unit nurse, indepentently interpreting results, counseling the patient and care coordination
[2024-02-01] MEDS: predniSONE 20 MG TAB 40 MG PO (11:47)
[2024-02-01 12:21] LABS: Absolute Eosinophil Count 0.11 10^3/uL (0.0-0.7)
[2024-02-01] MEDS: IRON SUCROSE COMPLEX 200 MG in Normal Saline 100 ML 440 MG IVPB (13:59)
[2024-02-01] MEDS: dilTIAZem CD 120 MG CAPCR PO (20:51)
[2024-02-01] MEDS: Mirtazapine 15 MG TAB 7.5 MG PO (20:52)
[2024-02-01] MEDS: QUEtiapine 25 MG TAB PO (20:52)
[2024-02-01] MEDS: Melatonin 3 MG TAB 9 MG PO (23:46)
[2024-02-02] MEDS: Midodrine 2.5 MG TAB 5 MG PO (06:08)
[2024-02-02] MEDS: Levothyroxine 50 MCG TAB PO (06:08)
[2024-02-02 06:25] VITALS: BP 120/75; PULSE 82; RESP 16; TEMP 36; O2SAT 97
[2024-02-02 07:02] LABS: Anion Gap 8.5 mmol/L (3-11); BUN 20 mg/dL (7-18); CO2 25.5 mmol/L (21.0-32.0); CREATININE 1.1 mg/dL (0.55-1.02); Calcium 8.6 mg/dL (8.5-10.1); Chloride 105 mmol/L (98-107); Estimated GFR 49.55 (mL/min/1.73m2); Glucose 124 mg/dL (74-106); Potassium 4.1 mmol/L (3.5-5.1); Sodium 139 mmol/L (136-145)
[2024-02-02] MEDS: cefTRIAXone 1 GM/50 ML BAG IVPB (07:56)
[2024-02-02] MEDS: Torsemide 20 MG TAB PO (07:58)
[2024-02-02] MEDS: Magnesium Gluconate 500 MG TAB PO (07:58)
[2024-02-02] MEDS: Atorvastatin 20 MG TAB PO (07:58)
[2024-02-02] MEDS: Metoprolol CR 50 MG TABCR PO (07:59)
[2024-02-02] MEDS: QUEtiapine 25 MG TAB 12.5 MG PO (07:59)
[2024-02-02] MEDS: Pantoprazole 40 MG TABCR PO (07:59)
[2024-02-02] MEDS: Spironolactone 25 MG TAB PO (07:59)
[2024-02-02] MEDS: Empaglifozin 10 MG TAB PO (07:59)
[2024-02-02] MEDS: Nystatin CREAM 30 GM TUBE TP (08:00)
[2024-02-02] MEDS: Ketoconazole 2% CREAM 15 GM TUBE TP (08:00)
[2024-02-02] MEDS: Normal Saline Flush 10 ML SYR IVP (08:00)
--- NOTE | 2024-02-02 09:43 | DSE_ITS ---
Date of service: 02/02/24 Time of Service: 09:43 DS: Diagnosis Discharge Diagnosis (1) Acute on chronic HFrEF (heart failure with reduced ejection fraction): Asessment and Plan: -Patient has HFmEF, she previously had LVEF of 42% with mild global hypokinesis and normal RV size and function but w/ mild to mod MR and mild TR, this was noted on her echo from 07/29/23 -latest echo from 01/31/24 has shown improvement w/ LVEF 50 TO 55% and again nor mal RV size and function and no structurally or hemodynamically signficant valve disease, her RVSP is normal at 24 -had significant urine output with IV diuretics and was transitioned to PO torsemide and sprironolactone which will be continued at discharge (2) Right calf pain: Status: Resolved Asessment and Plan: -resolved on its own -formal US without DVT (3) RUQ abdominal pain: Status: Acute Asessment and Plan: -initially thought that this may have been due to Crohns flare -however, this resolved s/p bowel movement (4) Elevated transaminase level: Status: Acute Asessment and Plan: -patient is exhibiting cirrhotic change in the liver (lobulated contour) -patient should follo-up w/ her GI specialist at [facility]. (5) Elevated bilirubin: Status: Acute Asessment and Plan: -as noted above (6) Urinary tract infection: Status: Acute Asessment and Plan: -blood cultures negative -urine cultures with mixed gram positive and gram negative rods -completed course of CTX (7) Chronic anemia: Status: Chronic Asessment and Plan: -completed course of venofer during hospitalization (8) Crohn's disease: Status: Chronic Asessment and Plan: -Given her inflammatory changes in her ascending colon, I think that she should follow up w/ her GI specialist -she denies having any bloody BM. (9) B12 deficiency: Status: Chronic (10) Dementia: Status: Chronic Asessment and Plan: stable, continue her Seroquel and Remeron Discharge Plan Disposition Patient Disposition: Home W/Home Health Services Condition: Good Discharge Details Reason For Visit: acute on chronic CHF (HFREF),UTI,anemia Admit Date/Time: 01/29/24 17:45 Admit Provider: Archie Cortes Attending Provider: Archie Cortes Primary Care Provider: Elizabeth Hathaway Hospital Course Hospital Course: Patient initially presented to the hospital with signs and symptoms consistent with an acute exacerbation of HFrEF with significant lower extremity edema and elevated proBNP of about 2081 7 which significantly decreased when rechecked on 02/01/2024 down to 1242. Patient was aggressively diuresed and had significant urine output during hospitalization. About 24 hours prior to discharge she was transitioned to p.o. torsemide and spironolactone and continued to have adequate urine output. Given the patient's lower extremity edema had significantly improved, was determined that she was stable for discharge home with home health services. Home Meds and New Rx's Prescriptions: New torsemide 20 mg Tablet 20 mg PO DAILY Qty: 90 0RF spironolactone 25 mg Tablet 25 mg PO DAILY Qty: 90 0RF magnesium gluconate 27 mg magnesium (500 mg) Tablet 500 mg PO DAILY Qty: 90 0RF Continued ketoconazole 2 % cream 1 applic topical DAILY Qty: 30 5RF Rx Instructions: Apply to thick, fungal nails daily. (apply at an opposite time of day from Urea). quetiapine 25 mg tablet See Rx Instructions PO .COMPLEX Qty: 135 3RF Rx Instructions: 12.5mg am and 25mg HS orally; Emgality Pen 120 mg/mL pen injector 120 mg subcut QMONTH Qty: 3 3RF Patient Comments: pt son she gets it monthly for headaches. January 19 nystatin 100,000 unit/gram cream 1 applic topical QID Qty: 60 3RF aspirin 81 mg tablet,delayed release (DR/EC) 81 mg PO DAILY gabapentin 100 mg capsule 100 mg PO DAILY PRN (Reason: headaches) Qty: 30 3RF Patient Comments: per report pt was weening off per son rodri. med list from August 14 balsalazide 750 mg capsule See Rx Instructions PO TID Rx Instructions: 05/13/19 [facility] 1500 mg (2 caps) PO three times a day Venofer 200 mg iron/10 mL solution 300 mg IV [id number] Patient Comments: 08/29/21 q 3m per pt now Rx Instructions: 06/01/20- [facility]-change infusion to every 4 wks. if hgb below 7 will tranfuse. 05/13/19 [facility] IVF every 6 weeks. mk 04/05/21 [facility] Infuse if Hgb<7. 10/25/21 [facility] - Q16 weeks cyanocobalamin (vitamin B-12) 1,000 mcg/mL solution 1,000 mcg IM monthly Qty: 3 3RF atorvastatin 20 mg tablet 20 mg PO DAILY Qty: 90 3RF pantoprazole 40 mg tablet,delayed release (DR/EC) 40 mg PO BID Qty: 180 3RF diltiazem HCl 120 mg capsule,extended release 24hr 120 mg PO QPM Qty: 90 3RF levothyroxine 50 mcg tablet 50 mcg PO DAILY Qty: 90 3RF mirtazapine 7.5 mg tablet See Rx Instructions .ROUTE .COMPLEX Qty: 90 3RF Dose Instruction: TAKE ONE TABLET BY MOUTH AT BEDTIME FOR APPETITE, MOOD AND SLEEP Rx Instructions: TAKE ONE TABLET BY MOUTH AT BEDTIME FOR APPETITE, MOOD AND SLEEP metoprolol succinate [Toprol XL] 50 mg tablet extended release 24 hr 50 mg PO DAILY Qty: 90 3RF Jardiance 10 mg tablet See Rx Instructions .ROUTE .COMPLEX Qty: 90 3RF Dose Instruction: TAKE ONE TABLET BY MOUTH EVERY MORNING Rx Instructions: TAKE ONE TABLET BY MOUTH EVERY MORNING midodrine 5 mg tablet See Rx Instructions .ROUTE .COMPLEX Qty: 90 0RF Dose Instruction: TAKE ONE TABLET BY MOUTH THREE TIMES A DAY +DO NOT GIVE LAST DOSE OF DAY AFTER 6PM OR WITHIN 4 HOURS OF BEDTIME+ Rx Instructions: TAKE ONE TABLET BY MOUTH THREE TIMES A DAY +DO NOT GIVE LAST DOSE OF DAY AFTER 6PM OR WITHIN 4 HOURS OF BEDTIME+ No Action triamcinolone acetonide 0.1 % cream 1 applic topical BID PRN (Reason: R ear & hand dermatitis) Qty: 15 0RF Rx Instructions: Use thin layer to affected areas on hand and R ear up to 2x/d; avoid long- term use (DME) Size M incontinence briefs See Rx Instructions .Route .MEDSUPPLY Qty: 40 11RF Rx Instructions: As directed (typically 1 per day) for urinary incontinence (DME) BD Blunt Plastic Cannula 17 x 3 mL syringe 1 ea Miscellaneous monthly Qty: 3 12RF Rx Instructions: BD 3ml syringes 25Gx1 for B-12 injections Discharge Instructions Instructions: Heart Failure, Adult (DC), Heart failure with reduced ejection fraction Activity:: Activity as Tolerated Equipment/Supplies:: No Equipment Needed Diet:: As Tolerated Discharge Orders Discharge Orders: Discharge Order (Routine); Ordered 02/02/24 Ordered By: Christian Bob DS: Summary Time Spent with Patient providing and/or coordinating discharge services: Greater than 30 minutes Status at Discharge Functional status at discharge: independent ambulation Overall status at discharge: patient is back to baseline Mental Status: mental status grossly normal Speech and Movement: speech and movement normal Mood: congruent mood Affect: normal affect Quality:SDOH Health Related Social Needs: Health related social needs risk of homeless Health related social needs details pt states that pippa rosario is involved with transportation needs Exam Narrative Exam Narrative: Elderly female sitting up in the chair in no acute distress, AOx4, heart irregularly irregular, lungs CTAB, abdomen soft, non-tender, non-distended, trace pitting edema in bilateral LE Psych Mental Status: mental status grossly normal Speech and Movement: speech and movement normal Mood: congruent mood Affect: normal affect DS: Data Vitals/I&O Vitals and I&O: Vital Signs Temperature 96.8 F L 02/02/24 06:25 Temperature Source Temporal Artery Scan 02/02/24 06:25 Pulse 82 02/02/24 06:25 Pulse Rhythm Irregular 02/02/24 08:00 Pulse 93 H 01/29/24 16:31 Respiratory Rate 16 02/02/24 06:25 Respiratory Effort Normal 02/02/24 08:00 Respiratory Depth Normal 02/02/24 08:00 Respiratory Pattern Normal 02/02/24 08:00 Blood Pressure 120/75 02/02/24 06:25 Blood Pressure Mean 102 01/29/24 16:31 Blood Pressure Position Sitting 01/29/24 14:55 Pulse Oximetry 97 02/02/24 06:25 Oxygen Delivery Method Room Air 02/02/24 06:25 Oxygen Flow Rate 0 02/02/24 06:25 Pain Level 0 02/02/24 06:25 Comment RN Notified 02/01/24 03:17 Intake & Output 02/01/24 02/02/24 02/02/24 17:59 05:59 17:59 Intake Total 250 / 250 670 / 920 250 / 250 Output Total 2550 / 2550 1550 / 4100 500 / 500 Balance -2300 / -2300 -880 / -3180 -250 / -250 Weight 121 lb 4.068 oz 121 lb 4.068 oz Intake: IV 50 / 50 220 / 270 10 / 10 Oral 200 / 200 450 / 650 240 / 240 Output: Urine 2550 / 2550 1550 / 4100 500 / 500 Other: Urine Color Yellow Yellow Yellow Urine Appearance Clear Clear Clear Urine Odor None Normal Voiding Methods Bedside Commode Bedside Commode Data Completed and Pending Labs on day of discharge: Labs from last 24 hours 02/02/24 02/01/24 06:14 05:55 Eosinophils % 2.0 Absolute Eosinophils 0.11 Sodium 139 Potassium 4.1 Chloride 105 Carbon Dioxide 25.5 Anion Gap 8.5 BUN 20 H Creatinine 1.1 H Est GFR (CKD-EPI 2020) 49.55 Glucose 124 H Calcium 8.6 Preliminary micro results at discharge 01/29/24 15:02 Blood Culture - Preliminary Blood NO GROWTH 72 HOURS 01/29/24 15:25 Blood Culture - Preliminary Blood NO GROWTH 72 HOURS PFSH All Active Problems (Updated 02/02/24 @ 09:43 by Christian Bob MD) RUQ abdominal pain (Acute) Elevated bilirubin (Acute) Elevated transaminase level (Acute) DVT prophylaxis (Acute) Congestive heart failure (Chronic) Urinary tract infection (Acute) Edema due to congestive heart failure (Acute) Fever (Acute) Crohn's disease (Chronic) Terminal ileitis (Acute) Colitis (Acute) Chronic atrial fibrillation (Chronic) Heart failure with reduced ejection fraction (Chronic) Aspiration into airway (Acute) Pleural effusion, right (Acute) Pancytopenia (Acute) Cirrhosis (Acute) Thrombocytopenia (Chronic) Urinary incontinence (Acute) Inflammatory bowel disease (Chronic) [facility] Note 04/17/23 Metatarsalgia of left foot (Acute) Corns and callosities (Acute) Nail dystrophy (Acute) Vascular dementia (Chronic) Delusions (Acute) Alzheimer's dementia with agitation (Chronic) Palliative care patient (Acute) Dementia (Chronic) Essential hypertension (Chronic) Onychomycosis (Acute ~06/2021) Iron deficiency anemia (Chronic) Managed by [facility]. 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 Brent Castaneda, OD Astigmatism of both eyes [facility] report dated 04/17/18. Brent Castaneda, OD Grade 1 hypertensive retinopathy Meibomian gland dysfunction (MGD) [facility] exam dated 04/17/18. Brent Castaneda, OD Neck pain (09/04/17) Fatigue (09/04/17) Exacerbation of Crohn's disease Microcytic anemia Nonspecific ST-T wave electrocardiographic changes Dehydration Hypomagnesemia Asthma exacerbation Acute bronchitis Influenza A Surgical History H/O colonoscopy (04/07/18) [facility] Hysterectomy, Laproscopic Hiatal Hernia repair (09/11/17) Repair of umbilical hernia (09/11/17) Social History Smoking/Tobacco Use Status: Never Smoking risk assessment performed?: Yes Alcohol Intake: never Drug use: Never Substance use type: does not use Household members: children Housing: apartment Number of Children: 3 Current gender identity: female What is your relationship status?: Panel score (0-1 are the most socially isolated patients): 0 What type of physical activity do you participate in: none Seatbelt use: always Water heater temp set <120 deg: Yes Working smoke detector in home: Yes Fire extinguisher in home: Yes Carbon monox detector in home: Yes Firearms in home: No Do you feel safe at home: Yes Do you feel safe in your relationship?: Yes History History Para 3 Hx # Term Pregnancies Multiple births Hx # Pregnancies Ectopic pregnancies AB induced Hx Number of Living Children AB spontaneous Time Spent with Patient Time Spent with Patient: <45 minutes Time was spent: preparing to see the patient(eg.review tests), obtaining and/or reviewing separately otained hiistory, ordering medications,tests, procedures, referring, communicating with other health healthcare network pricing consultant, indepentently interpreting results, counseling the patient and care coordination
--- NOTE | 2024-02-02 10:13 | PT.INNT ---
PT Notes Visit Reasons: acute on chronic CHF (HFREF),UTI,anemia Pt
--- NOTE | 2024-02-02 11:08 | PDOC.HHF2F ---
Home Health Referral Home Health Orders Clinical synopsis of why skilled professionals are needed: HFrEF, bilateral LE edema, a-fib, elevated LFTs, dementia, chronic anemia Registered Nurse: Check all that apply Instruct on new or changed medication(s)/assess compliance: Ordered Assess for exacerbation of medical condition, instruct patient/caregivers on signs and symptoms to report for early detection: Ordered Physical Therapist: Check all that apply Increase strength & endurance for safe mobility at home: Ordered To design/establish home maintenance program: Ordered Occupational Therapist: Evaluate and treat for patient unable to perform ADL/IADL/self-care: Ordered Speech Therapist: Check all that apply For swallow evaluation/therapy due to dysphagia: Ordered Global Compensation Manager: Assist with community resources: Ordered Home Bound Status Requires the aid of supportive device (check all that apply): Wheelchair Patient has a condition such that leaving home is medically contraindicated (Describe): worsening work of breathing from CHF and atrial fibrillation Encounter Date and Reason: I certify that a FTF encounter for this patient was performed on February 02, 2024 and that such encounter was related to the primary reason the patient requires home health services. The encounter was conducted in the following manner: By me as the certifying physician, ASSOC[employer]ATE [employer]ANNER, PA or By an inpatient physician, ASSOCIATE FINANCIAL PLANNER or PA during an inpatient stay who communicated findings to me, Certification And Authentication I certify that I composed the above information based on my clinical judgment relating to this patient's medical condition and, if applicable, clinical findings communicated to me by the NPP or inpatient physician who performed the FTF encounter. Name of Provider that will be monitoring home health services: Elizabeth Hathaway
--- NOTE | 2024-02-02 17:14 | PDOC.CMDIS ---
Date of service: 02/02/24 Time of Service: 17:14 LACE Index Scoring Tool Questions: Length of Stay (in days): 4 - 6 Was the patient admitted via the E.D.?: Yes Comorbidities: Congestive Heart Failure and Dementia E.D. Visits: 3 Answers: Total Score: 15 Risk of Readmission: High Risk Care Management Discharge Plan Reason for Hospitalization: Acute on chronic chf Discharge Plan: Maegan is discharged home with [facility] services. She will follow up with community providers and her discharge plan of care as instructed. She was transported by family. Patient/Family Education Needs: Review discharge instructions, limitations, medications and follow up plan. Discuss ask me three. Services Needed at Discharge: Home Health Care Services ([facility] RN, PT, OT, EMERGENCY SERVICE RESTORER) SDOH Health Related Social Needs: Health related social needs risk of homeless Health related social needs details pt states that family is involved with transportation needs
[2024-02-04 12:22] LABS: Methylmalonic Acid 0.17 nmol/mL (<=0.40)
== END 2024-02-02 10:45 | disposition home health service (06) | DRG 291 ==
LOC: ER 18:10 → MS 18:37
PROVIDERS: Family Medicine; Admitting Provider Internal Medicine; Emergency Provider Student in an Organized Health Care Education/Training Program; PCP Nurse Practitioner Adult Health; Visit Provider Internal Medicine
DX: I11.0 Hypertensive heart disease with heart failure (principal); I50.23 Acute on chronic systolic (congestive) heart failure; I48.20 Chronic atrial fibrillation, unspecified; N30.00 Acute cystitis without hematuria; K50.90 Crohn's disease, unspecified, without complications; D61.818 Other pancytopenia; E53.8 Deficiency of other specified B group vitamins; R74.01 Elevation of levels of liver transaminase levels; E03.9 Hypothyroidism, unspecified; K76.1 Chronic passive congestion of liver; D69.6 Thrombocytopenia, unspecified; R32 Unspecified urinary incontinence; H90.3 Sensorineural hearing loss, bilateral; F32.A Depression, unspecified; F41.9 Anxiety disorder, unspecified; G43.909 Migraine, unspecified, not intractable, without status migrainosus; M21.372 Foot drop, left foot; F01.50 Vascular dementia, unspecified severity, without behavioral disturbance, psychotic disturbance, mood disturbance, and anxiety; G30.9 Alzheimer's disease, unspecified; F02.80 Dementia in other diseases classified elsewhere, unspecified severity, without behavioral disturbance, psychotic disturbance, mood disturbance, and anxiety; I08.1 Rheumatic disorders of both mitral and tricuspid valves; Z86.718 Personal history of other venous thrombosis and embolism; R07.89 Other chest pain; D50.0 Iron deficiency anemia secondary to blood loss (chronic); T80.89XA Other complications following infusion, transfusion and therapeutic injection, initial encounter; R10.13 Epigastric pain; Z66 Do not resuscitate; M79.661 Pain in right lower leg
CPT/HCPCS: 00123; 36415; 80048; 80053; 80076; 80186; 82805; 83090; 83690; 84145; 85027; 87040; 87077; 87637; 93005; 93306; 93308; 93971; 96365; 96375; 97116; 97162; 97530; 99285; 71045; 74177; 76705; 81003; 81015; 82607; 82728; 82746; 83540; 83550; 83605; 83735; 83880; 84443; 84466; 84484; 85025; 85610; 85730; 87086; 87186; 93010; 94640; 99222; 99232; 99233; 99238; 99291; J0696; J1205; J1720; J1756; J1940; J1941; J2270; J2405; J3480; J3490; J7512; J7614; Q9967

== ENCOUNTER 2024-02-18 15:02 | Outpatient (REF) | payer MEDICARE, OTHER, MEDICAID, SELFPAY ==
[2024-02-18 12:00] LABS: HCT 35.6 % (36.0-46.0); HGB 10.8 g/dL (11.2-15.7); MCH 26.5 pg (27.0-33.0); MCHC 30.3 % (32.0-36.0); MCV 88 fL (80-95); MPV 10.2 fL (8.0-11.0); Platelet Count 169 10^3/uL (130-400); RBC 4.07 10^6/uL (3.93-5.22); RDW-SD 66.7 fL; WBC 3.83 10^3/uL (4.4-10.8)
[2024-02-18 12:18] LABS: RDW 20.9 % (11.7-14.6)
[2024-02-18 13:10] LABS: ALT 24 U/L (14-59); AST 29 U/L (15-37); Albumin 3.6 g/dL (3.4-5.0); Alkaline Phosphatase 192 U/L (46-116); Anion Gap 11.5 mmol/L (3-11); BUN 24 mg/dL (7-18); Bilirubin, Total 0.98 mg/dL (0.2-1.0); CO2 23.5 mmol/L (21.0-32.0); CREATININE 1.5 mg/dL (0.55-1.02); Calcium 9.1 mg/dL (8.5-10.1); Chloride 107 mmol/L (98-107); Estimated GFR 34.15 (mL/min/1.73m2); Glucose 165 mg/dL (74-106); Magnesium 2.2 mg/dL (1.8-2.4); NT-proBNP 581 pg/mL (<300); Potassium 4.3 mmol/L (3.5-5.1); Sodium 142 mmol/L (136-145); TSH (W/Ref FT4) 0.83 uIU/mL (0.36-3.74); Total Protein 7.3 g/dL (6.4-8.2)
[2024-02-18 13:47] LABS: Vitamin B12 806 pg/mL (193-986)
== END 2024-02-18 15:03 | disposition home or self-care (01) ==
LOC: LBN 15:02
PROVIDERS: PCP Nurse Practitioner Adult Health; Visit Provider Nurse Practitioner Adult Health
DX: I10 Essential (primary) hypertension (principal); I50.9 Heart failure, unspecified; I48.20 Chronic atrial fibrillation, unspecified; D69.6 Thrombocytopenia, unspecified; K74.60 Unspecified cirrhosis of liver; K50.919 Crohn's disease, unspecified, with unspecified complications; R74.01 Elevation of levels of liver transaminase levels; D50.8 Other iron deficiency anemias; J90 Pleural effusion, not elsewhere classified; E03.9 Hypothyroidism, unspecified; E53.8 Deficiency of other specified B group vitamins; I11.0 Hypertensive heart disease with heart failure; I50.23 Acute on chronic systolic (congestive) heart failure
CPT/HCPCS: 80053; 85027; 82607; 83735; 83880; 84443

== ENCOUNTER → 2024-02-19 01:02 | Outpatient (CLI) | payer MEDICARE, OTHER, MEDICAID, SELFPAY ==
--- NOTE | 2024-02-19 13:39 | DI.RAD_ITS ---
Exam(s) XR CHEST 2V PA LATERAL EXAM: XR CHEST 2V PA LATERAL CLINICAL HISTORY: interval assessment, pleural effusion rt, J90 TECHNIQUE: 2D digital imaging was performed. Two views. COMPARISON: CR,XR XR PORTABLE CHEST AP from 01/30/2024 FINDINGS: HEART: Normal size. Aorta: Not dilated. PULMONARY VASCULATURE: Normal. MEDIASTINUM: Unremarkable. LUNGS: Clear. PLEURAL SPACE: No pleural effusion or pneumothorax. BONE:Unremarkable for age. SOFT TISSUES: Eventration of the right diaphragm. IMPRESSION: No acute abnormality. DATA REPOSITORY: RADIATION DOSE DELIVERED:
== END ==
PROVIDERS: PCP Nurse Practitioner Adult Health; Visit Provider Nurse Practitioner Adult Health
DX: J90 Pleural effusion, not elsewhere classified (principal)
CPT/HCPCS: 71046

== ENCOUNTER 2024-03-24 16:14 | Outpatient (REF) | payer MEDICARE, OTHER, MEDICAID, SELFPAY ==
[2024-03-24 12:41] LABS: ALT 20 U/L (14-59); AST 39 U/L (15-37); Albumin 3.7 g/dL (3.4-5.0); Alkaline Phosphatase 113 U/L (46-116); Anion Gap 11.1 mmol/L (3-11); BUN 21 mg/dL (7-18); Bilirubin, Total 0.74 mg/dL (0.2-1.0); CO2 22.9 mmol/L (21.0-32.0); CREATININE 1.1 mg/dL (0.55-1.02); Calcium 9.3 mg/dL (8.5-10.1); Chloride 105 mmol/L (98-107); Estimated GFR 49.55 (mL/min/1.73m2); Glucose 100 mg/dL (74-106); Potassium 3.9 mmol/L (3.5-5.1); Sodium 139 mmol/L (136-145); Total Protein 7.4 g/dL (6.4-8.2)
== END 2024-03-24 16:15 | disposition home or self-care (01) ==
LOC: LBN 16:14
PROVIDERS: PCP Nurse Practitioner Adult Health; Visit Provider Nurse Practitioner Adult Health
DX: R74.01 Elevation of levels of liver transaminase levels; D50.8 Other iron deficiency anemias; K74.60 Unspecified cirrhosis of liver; D64.9 Anemia, unspecified; D69.6 Thrombocytopenia, unspecified; I50.41 Acute combined systolic (congestive) and diastolic (congestive) heart failure; I48.20 Chronic atrial fibrillation, unspecified; I95.9 Hypotension, unspecified
CPT/HCPCS: 80053; 85025

== ENCOUNTER 2024-03-25 11:09 | Outpatient (REF) | payer MEDICARE, OTHER, MEDICAID, SELFPAY ==
[2024-03-25 13:47] LABS: Abs Immature Grans 0.01 10^3/uL (0.0-0.06); Absolute Basophil Count 0.07 10^3/uL (0.0-0.2); Absolute Eosinophil Count 0.03 10^3/uL (0.0-0.7); Absolute Lymphocyte Count 0.51 10^3/uL (1.2-3.4); Absolute Monocyte Count 0.26 10^3/uL (0.1-0.8); Absolute Neutrophil Count 2.88 10^3/uL (1.2-6.7); Basophils % 1.9 %; Eosinophils % 0.8 %; HCT 34.7 % (36.0-46.0); HGB 10.8 g/dL (11.2-15.7); Immature Grans % 0.3 %; Lymphocytes % 13.6 %; MCH 26.9 pg (27.0-33.0); MCHC 31.1 % (32.0-36.0); MCV 86 fL (80-95); MPV 11.1 fL (8.0-11.0); Monocytes % 6.9 %; Neutrophils % 76.5 %; Platelet Count 167 10^3/uL (130-400); RBC 4.02 10^6/uL (3.93-5.22); RDW 18.6 % (11.7-14.6); RDW-SD 59.3 fL; WBC 3.76 10^3/uL (4.4-10.8)
== END 2024-03-25 11:10 | disposition home or self-care (01) ==
LOC: LBN 11:09
PROVIDERS: PCP Nurse Practitioner Adult Health; Visit Provider Nurse Practitioner Adult Health
DX: I50.23 Acute on chronic systolic (congestive) heart failure (principal); B35.1 Tinea unguium; L60.3 Nail dystrophy; D64.9 Anemia, unspecified; M21.372 Foot drop, left foot; E53.8 Deficiency of other specified B group vitamins; M79.674 Pain in right toe(s); M79.675 Pain in left toe(s)
CPT/HCPCS: 80053; 85025

== ENCOUNTER → 2024-03-25 13:13 | Outpatient (BNVA) | payer MEDICARE, OTHER, MEDICAID, SELFPAY | PROVIDERS: PCP Nurse Practitioner Adult Health; Referring Provider Nurse Practitioner Adult Health; Visit Provider Podiatrist | DX: L60.3 Nail dystrophy (principal); B35.1 Tinea unguium; D64.9 Anemia, unspecified; M21.372 Foot drop, left foot; E53.8 Deficiency of other specified B group vitamins; M79.674 Pain in right toe(s); M79.675 Pain in left toe(s) | CPT/HCPCS: 11719; 11720 ==

== ENCOUNTER 2024-05-18 02:15 | Outpatient (CLI) | payer MEDICARE, OTHER, MEDICAID, SELFPAY ==
[2024-05-18 14:17] LABS: Abs Immature Grans 0.01 10^3/uL (0.0-0.06); Absolute Basophil Count 0.05 10^3/uL (0.0-0.2); Absolute Eosinophil Count 0.06 10^3/uL (0.0-0.7); Absolute Lymphocyte Count 0.57 10^3/uL (1.2-3.4); Absolute Monocyte Count 0.33 10^3/uL (0.1-0.8); Absolute Neutrophil Count 2.71 10^3/uL (1.2-6.7); Basophils % 1.3 %; Eosinophils % 1.6 %; HCT 28.5 % (36.0-46.0); HGB 8.6 g/dL (11.2-15.7); Immature Grans % 0.3 %; Lymphocytes % 15.3 %; MCH 24.4 pg (27.0-33.0); MCHC 30.2 % (32.0-36.0); MCV 81 fL (80-95); MPV 10.4 fL (8.0-11.0); Monocytes % 8.8 %; Neutrophils % 72.7 %; Platelet Count 177 10^3/uL (130-400); RBC 3.52 10^6/uL (3.93-5.22); RDW 16.5 % (11.7-14.6); RDW-SD 48.4 fL; WBC 3.73 10^3/uL (4.4-10.8)
[2024-05-18 14:47] LABS: ALT 17 U/L (14-59); AST 25 U/L (15-37); Albumin 3.5 g/dL (3.4-5.0); Alkaline Phosphatase 129 U/L (46-116); Anion Gap 11.2 mmol/L (3-11); BUN 25 mg/dL (7-18); CO2 25.8 mmol/L (21.0-32.0); CREATININE 1.3 mg/dL (0.55-1.02); Calcium 9.3 mg/dL (8.5-10.1); Chloride 108 mmol/L (98-107); Estimated GFR 40.55 (mL/min/1.73m2); Ferritin 15 ng/mL (8-252); Glucose 95 mg/dL (74-106); Potassium 3.9 mmol/L (3.5-5.1); Sodium 145 mmol/L (136-145); Total Protein 7.2 g/dL (6.4-8.2)
[2024-05-18 15:04] LABS: Iron 26 ug/dL (50-170); Total Iron Binding Capacity 460 ug/dL (250-450); Transferrin Sat 6 % (15-50)
== END 2024-05-18 02:16 | disposition home or self-care (01) ==
PROVIDERS: PCP Nurse Practitioner Adult Health; Visit Provider Internal Medicine Gastroenterology
DX: K52.9 Noninfective gastroenteritis and colitis, unspecified (principal); D50.9 Iron deficiency anemia, unspecified; I73.9 Peripheral vascular disease, unspecified
CPT/HCPCS: 36415; 80053; 93922; 82728; 83540; 83550; 85025

== ENCOUNTER → 2024-06-03 13:16 | Outpatient (BNVA) | payer MEDICARE, OTHER, MEDICAID, SELFPAY | PROVIDERS: PCP Nurse Practitioner Adult Health; Referring Provider Nurse Practitioner Adult Health; Visit Provider Podiatrist | DX: L60.3 Nail dystrophy (principal); B35.1 Tinea unguium; M79.674 Pain in right toe(s); M79.675 Pain in left toe(s); L84 Corns and callosities; E53.8 Deficiency of other specified B group vitamins; M21.372 Foot drop, left foot; D64.9 Anemia, unspecified; N18.9 Chronic kidney disease, unspecified | CPT/HCPCS: 11055; 11719; 11720 ==

== ENCOUNTER 2024-06-08 01:54 | Outpatient (RCR) | payer MEDICARE, OTHER, MEDICAID, SELFPAY ==
[2024-06-08] MEDS: IRON SUCROSE COMPLEX 300 MG in Normal Saline 250 ML 176.667 MG IVPB (13:41)
[2024-06-08] MEDS: Normal Saline Flush 10 ML SYR IVP (13:42)
== END 2024-06-20 23:59 | disposition home or self-care (01) ==
LOC: INF 01:54
PROVIDERS: PCP Nurse Practitioner Adult Health; Visit Provider Family Medicine
DX: D50.9 Iron deficiency anemia, unspecified (principal)
CPT/HCPCS: 96365; 96366; J1756

== ENCOUNTER 2024-07-16 00:17 | Outpatient (RCR) | payer MEDICARE, OTHER, MEDICAID, SELFPAY ==
[2024-07-16] MEDS: Normal Saline Flush 10 ML SYR IVP (13:52)
[2024-07-16] MEDS: IRON SUCROSE COMPLEX 300 MG in Normal Saline 250 ML 176.667 MG IVPB (13:52)
== END 2024-07-21 23:59 | disposition home or self-care (01) ==
LOC: INF 00:17
PROVIDERS: PCP Nurse Practitioner Adult Health; Visit Provider Family Medicine
DX: D50.9 Iron deficiency anemia, unspecified (principal)
CPT/HCPCS: 96365; 96366; J1756

== ENCOUNTER 2024-08-05 02:44 | Outpatient (RCR) | payer MEDICARE, OTHER, MEDICAID, SELFPAY ==
[2024-08-05] MEDS: IRON SUCROSE COMPLEX 300 MG in Normal Saline 250 ML 176.667 MG IVPB (13:28)
[2024-08-05] MEDS: Normal Saline Flush 10 ML SYR IVP (13:28)
== END 2024-08-21 23:59 | disposition home or self-care (01) ==
LOC: INF 02:44
PROVIDERS: PCP Nurse Practitioner Adult Health; Visit Provider Family Medicine
DX: D50.9 Iron deficiency anemia, unspecified (principal)
CPT/HCPCS: 96365; 96366; J1756

== ENCOUNTER → 2024-09-30 13:41 | Outpatient (BNVA) | payer MEDICARE, OTHER, MEDICAID, SELFPAY | PROVIDERS: PCP Nurse Practitioner Adult Health; Referring Provider Nurse Practitioner Adult Health; Visit Provider Podiatrist | DX: L60.3 Nail dystrophy (principal); B35.1 Tinea unguium; D64.9 Anemia, unspecified; M21.372 Foot drop, left foot; E53.8 Deficiency of other specified B group vitamins; L84 Corns and callosities; M79.672 Pain in left foot; N18.31 Chronic kidney disease, stage 3a; R09.89 Other specified symptoms and signs involving the circulatory and respiratory systems; R60.0 Localized edema; I83.93 Asymptomatic varicose veins of bilateral lower extremities; L65.9 Nonscarring hair loss, unspecified; R23.8 Other skin changes; L60.2 Onychogryphosis; M79.674 Pain in right toe(s); M79.675 Pain in left toe(s); L85.8 Other specified epidermal thickening | CPT/HCPCS: 11055; 11719; 11721 ==

== ENCOUNTER 2024-11-04 02:05 | Outpatient (RCR) | payer MEDICARE, OTHER, MEDICAID, SELFPAY ==
[2024-11-04] MEDS: IRON SUCROSE COMPLEX 300 MG in Normal Saline 250 ML 176.667 MG IVPB (13:10)
[2024-11-04] MEDS: Normal Saline Flush 5 ML SYR IVP (13:11)
[2024-11-04 13:25] LABS: Abs Immature Grans 0.01 10^3/uL (0.0-0.06); Absolute Basophil Count 0.07 10^3/uL (0.0-0.2); Absolute Eosinophil Count 0.09 10^3/uL (0.0-0.7); Absolute Lymphocyte Count 0.48 10^3/uL (1.2-3.4); Absolute Monocyte Count 0.28 10^3/uL (0.1-0.8); Absolute Neutrophil Count 3.87 10^3/uL (1.2-6.7); Basophils % 1.5 %; Eosinophils % 1.9 %; HCT 31.3 % (36.0-46.0); HGB 9.1 g/dL (11.2-15.7); Immature Grans % 0.2 %; MCH 22.3 pg (27.0-33.0); MCHC 29.1 % (32.0-36.0); MCV 77 fL (80-95); MPV 10.5 fL (8.0-11.0); Monocytes % 5.8 %; Neutrophils % 80.6 %; Platelet Count 191 10^3/uL (130-400); RBC 4.08 10^6/uL (3.93-5.22); RDW 17.8 % (11.7-14.6); RDW-SD 49.1 fL
[2024-11-04 13:40] LABS: ALT 17 U/L (14-59); AST 24 U/L (15-37); Albumin 3.8 g/dL (3.4-5.0); Alkaline Phosphatase 148 U/L (46-116); Anion Gap 7.5 mmol/L (3-11); BUN 23 mg/dL (7-18); Bilirubin, Total 0.8 mg/dL (0.2-1.0); CO2 27.5 mmol/L (21.0-32.0); CREATININE 1.2 mg/dL (0.55-1.02); Calcium 9.5 mg/dL (8.5-10.1); Chloride 107 mmol/L (98-107); Estimated GFR 44.36 (mL/min/1.73m2); Glucose 138 mg/dL (74-106); Potassium 4.3 mmol/L (3.5-5.1); Sodium 142 mmol/L (136-145); Total Protein 7.9 g/dL (6.4-8.2)
[2024-11-04 13:57] LABS: Iron 18 ug/dL (50-170); Total Iron Binding Capacity 501 ug/dL (250-450); Transferrin Sat 4 % (15-50)
== END 2024-11-18 23:59 | disposition home or self-care (01) ==
LOC: INF 02:05
PROVIDERS: Internal Medicine Gastroenterology; PCP Nurse Practitioner Adult Health; Visit Provider Family Medicine
DX: D50.9 Iron deficiency anemia, unspecified (principal); K52.9 Noninfective gastroenteritis and colitis, unspecified
CPT/HCPCS: 36415; 80053; 96365; 96366; 83540; 83550; 85025; J1756

== ENCOUNTER → 2024-11-05 14:19 | Outpatient (BNVA) | payer MEDICARE, OTHER, MEDICAID, SELFPAY | PROVIDERS: PCP Nurse Practitioner Adult Health; Referring Provider Nurse Practitioner Adult Health; Visit Provider Nurse Practitioner Adult Health | DX: G43.009 Migraine without aura, not intractable, without status migrainosus (principal); I67.850 Cerebral autosomal dominant arteriopathy with subcortical infarcts and leukoencephalopathy; G30.8 Other Alzheimer's disease; F02.B11 Dementia in other diseases classified elsewhere, moderate, with agitation; F01.B4 Vascular dementia, moderate, with anxiety | CPT/HCPCS: 99214 ==

== ENCOUNTER 2025-02-10 02:18 | Outpatient (RCR) | payer MEDICARE, OTHER, MEDICAID, SELFPAY ==
[2025-02-10] MEDS: IRON SUCROSE COMPLEX 300 MG in Normal Saline 250 ML 176.667 MG IVPB (13:10)
[2025-02-10] MEDS: Normal Saline Flush 10 ML SYR IVP (15:07)
== END 2025-02-18 23:59 | disposition home or self-care (01) ==
LOC: INF 02:18
PROVIDERS: PCP Nurse Practitioner Adult Health; Visit Provider Family Medicine
DX: D50.9 Iron deficiency anemia, unspecified (principal)
CPT/HCPCS: 96365; J1756

== ENCOUNTER → 2025-03-02 13:19 | Outpatient (BNVA) | payer MEDICARE, OTHER, MEDICAID, SELFPAY | PROVIDERS: PCP Nurse Practitioner Adult Health; Referring Provider Nurse Practitioner Adult Health; Visit Provider Podiatrist | DX: L60.3 Nail dystrophy (principal); B35.1 Tinea unguium; M79.672 Pain in left foot; N18.31 Chronic kidney disease, stage 3a; L84 Corns and callosities; M79.674 Pain in right toe(s); E53.8 Deficiency of other specified B group vitamins; D64.9 Anemia, unspecified; M21.372 Foot drop, left foot; R09.89 Other specified symptoms and signs involving the circulatory and respiratory systems; L65.9 Nonscarring hair loss, unspecified; R23.8 Other skin changes; L60.2 Onychogryphosis; L85.8 Other specified epidermal thickening | CPT/HCPCS: 11055; 11721 ==

== ENCOUNTER 2025-05-26 03:33 | Outpatient (RCR) | payer MEDICARE, OTHER, MEDICAID, SELFPAY ==
[2025-05-26] MEDS: Normal Saline Flush 10 ML SYR IVP (12:59)
[2025-05-26] MEDS: IRON SUCROSE COMPLEX 300 MG in Normal Saline 250 ML 176.667 MG IVPB (13:00)
== END 2025-06-20 23:59 | disposition home or self-care (01) ==
LOC: INF 03:33
PROVIDERS: PCP Nurse Practitioner Adult Health; Visit Provider Family Medicine
DX: D50.9 Iron deficiency anemia, unspecified (principal)
CPT/HCPCS: 96365; 96366; J1756